=== PATIENT | female | born 1955 | race African-American/Black ===

== ENCOUNTER 2017-08-27 06:09 | Emergency (ER) | payer MEDICARE, MEDICAID, SELFPAY ==
[2017-08-27] VITALS (7 sets, daily range): BP systolic 143–217; BP diastolic 79–134; PULSE 55–76; RESP 11–25; TEMP 36.3; O2SAT 94–100; BMI 49.1
--- NOTE | 2017-08-27 06:16 | EKG12_ITS ---
Test Reason : CP Blood Pressure : / mmHG Vent. Rate : 064 BPM Atrial Rate : 064 BPM P-R Int : 176 ms QRS Dur : 088 ms QT Int : 440 ms P-R-T Axes : 018 -12 000 degrees QTc Int : 453 ms Normal sinus rhythm Normal ECG Confirmed by WILMAN SANDERS, LUIS ([id number]), telegraph editor RAN JHAVERI ([id number]) on 08/31/2017 1:23:42 PM Referred By: KEM Confirmed By:LUIS STOVALL MD
--- NOTE | 2017-08-27 06:54 | EKG12_ITS ---
Test Reason : REPEAT CP Blood Pressure : / mmHG Vent. Rate : 058 BPM Atrial Rate : 058 BPM P-R Int : 174 ms QRS Dur : 086 ms QT Int : 480 ms P-R-T Axes : 012 -16 002 degrees QTc Int : 471 ms Sinus bradycardia Poor R wave progression Confirmed by WILMAN SANDERS, LUIS ([id number]), story editor RAN JHAVERI ([id number]) on 08/31/2017 1:18:14 PM Referred By: KEM Confirmed By:LUIS STOVALL MD
--- NOTE | 2017-08-27 07:00 | RAD_ITS ---
STUDY: X-RAY CHEST REASON FOR EXAM: Female, 62 years old. Chest pain. TECHNIQUE: Single AP portable view of the chest. COMPARISON: Comparison is made with prior study dated May 28, 2017. FINDINGS: EKG electrodes are seen. The lungs are clear and expanded. There is no demonstrated pleural abnormality. There is moderate cardiac enlargement. Normal mediastinum and alina. Normal visualized pulmonary arteries. There is atherosclerotic tortuosity of the aortic arch and descending thoracic aorta. Normal visualized thoracic spine. Normal visualized ribs, clavicles, and shoulders. There is no demonstrated abnormality of the visualized soft tissue structures of the upper abdomen. RAD/Chest 1 View (Portable) IMPRESSION: Moderate cardiomegaly. Electronically Signed: Tico Hanley MD at 8:03 EST Tel [phone], Service support ,
[2017-08-27 07:03] LABS: Absolute Lymphocyte Count 2.99 X10^3/ul (0.83-4.51); Absolute Neutrophil Count 3.5 X10^3/uL (2.0-7.7); Basophil# 0.05 X10^3/uL; Basophil% 0.7 % (0-1); Eosinophil# 0.17 X10^3/uL; Eosinophils% 2.3 % (0-5); Hematocrit 33.7 % (37-47); Hemoglobin 10.4 g/dl (12.0-15.0); Lymphocyte # 2.99 X10^3/ul (4.0); Mean Corp Hgb Conc 30.9 g/gl (32-36); Mean Corpuscular Hgb 26.8 pg (27.0-32.0); Mean Corpuscular Volume 86.9 fL (81-99); Mean Platelet Vol. 10.8 fl (6.2-12.0); Monocyte# 0.73 X10^3/uL; Monocyte% 9.8 % (0-10); Neutrophil # 3.52 X10^3/uL (2.7-7.7); Neutrophil % 47.1 % (47-70); Platelet Count 252 K/mm3 (150-450); RBC Distribution Width CV 14.3 % (11.6-14.6); RBC Distribution Width SD 43.8 fl (35.1-43.9); Red Blood Count 3.88 M/mm3 (4.2-5.4); White Blood Count 7.5 K/mm3 (4.4-11.0)
[2017-08-27 07:09] LABS: POSITIVE COUNT NO; POSITIVE DIFFERENTIAL NO; POSITIVE MORPHOLOGY NO
[2017-08-27] MEDS: Aspirin 81 MG TAB.CHEW 324 MG PO (07:14)
[2017-08-27 07:15] LABS: Anion Gap 6 (5-15); BUN 12 mg/dL (7-18); BUN/Creat Ratio 11.7 RATIO (10-20); Calcium,Total 8.4 mg/dL (8.5-10.1); Chloride 109 mmol/L (98-107); Creatinine, Serum 1.03 mg/dL (0.55-1.02); EST Glomerular Filtration Rate 57 mL/min (>60); Est Glom Filt Rate - Afr Amer 70 mL/min (>60); Estimated Creatinine Clearance 46.25 ml/min; Glucose 85 mg/dL (74-106); Sodium Level 143 mmol/L (136-145)
--- NOTE | 2017-08-27 07:45 | CT_ITS ---
STUDY: CTA CHEST REASON FOR EXAM: Female, 62 years old. Chest pain. Shortness of breath. RADIATION DOSAGE (If Supplied By Facility): CTDIvol = ( 15.06 ) mGy, DLP = ( 686.55 ) mGycm TECHNIQUE: The examination was performed with the intravenous administration of 100CC ml of Isovue 370 contrast material. Post-processing of the angiographic images was performed, with multiplanar reformation and 3D reconstruction. Individualized dose optimization techniques were used for this CT. COMPARISON: Comparison is made with prior study dated May 28, 2017. FINDINGS: Mild inhomogeneous enlargement of the left lobe of the thyroid. Normal enhancement of the main pulmonary artery and right and left pulmonary arteries. Normal enhancement of the bilateral peripheral pulmonary arteries. There is no demonstrated pulmonary embolism. Normal thoracic aorta and visualized great vessels. There is no demonstrated aortic dissection. There is borderline cardiac cardiomegaly. Normal mediastinum. Normal hilar regions. Normal visualized trachea and bronchi. The lungs are well expanded. Minimal increased markings in the posterior aspect of the right upper lobe as well as lung base suggestive of atelectasis and/or minimal scarring. Normal pleura. Normal chest wall structures. There are degenerative changes of thoracic spine. Prior cholecystectomy. CT/CTA Chest W/WO Contrast IMPRESSION: No acute abnormality is seen. There has been no change as compared to prior examination. Electronically Signed: Tico Hanley MD at 9:56 EST Tel [phone], Service support ,
--- NOTE | 2017-08-27 07:45 | ED.VISSUMM ---
- ER Visit Summary Date of Service: 08/27/17 Chief Complaint: Pain and shortness of breath History of Present Illness: The patient is a 62 F who presents with chest pain shortness of breath. This began while driving to work this morning. She states her pain is sharp and worsened with deep inspiration. She also felt short of breath. She states that she became diaphoretic when her pain initially began. No nausea or vomiting. She denies recent illness such as fever cough congestion rhinorrhea sore throat muscle aches joint aches headaches. She does have a history of unprovoked pulmonary embolism. She is a poor informant but it sounds like she developed a hemorrhagic stroke after admission for pulmonary embolism. She is not on anticoagulation and also denies a history of an IVC filter. She denies any recent surgery or travel but was admitted in May for chest pain evaluation. It sounds like she had a similar presentation at that time and had a negative stress test and also an uncontrolled hypertension. Her chest pain was attributed to musculoskeletal etiology. Physical Examination: Initial blood pressure 161/134 respiratory rate 25 pulse ox 96% on nasal cannula Moist mucous membranes Heart regular rate and rhythm Lungs are clear to auscultation Abdomen soft Extremities nontender without edema Alert and oriented Test Results: EKG shows normal sinus rhythm at a rate of 64 with no acute ischemic changes. Repeat EKG unchanged. Chest x-ray on my review appears similar to prior with no acute process, cardiomegaly noted. CBC BMP troponin notable for hemoglobin 10.4. CTA of the chest is pending at this time of this dictation. Emergency Department Course and Treatment: She has had uncontrolled blood pressure while here with systolic of greater than 200 and diastolic greater than 110. IV hydralazine is been ordered. Given her history of pulmonary embolism and recent hospitalization a CTA has been ordered and is currently pending. Patient will be signed out to the oncoming physician for follow-up on CT results and reevaluation of blood pressure and symptoms. Treatment Plan: [] Disposition: Pending reevaluation and CTA Impression: Chest pain Uncontrolled hypertension This note was generated with [employer] dictation software. It may contain incorrect words, spelling, and punctuation that were not noted in review of the chart prior to signing ED Disposition - Plan for ED Patient: Chief Complaint: Chest Pain Referrals: Marquez Garcia Chi, MD [Primary Care Provider] -
--- NOTE | 2017-08-27 09:46 | ED.RN ---
Physician aware of persistent htn
[2017-08-27] MEDS: cloNIDine HCl 0.1 MG Tablet 0.2 MG PO (09:53)
[2017-08-27] MEDS: cloNIDine HCl 0.1 MG Tablet PO (11:26)
[2017-08-27] MEDS: Acetaminophen 325 MG Tablet 650 MG PO (11:26)
--- NOTE | 2017-08-27 12:23 | ED.DCSUM_ITS ---
- ER Visit Summary Date of Service: 08/27/17 Chief Complaint: [] History of Present Illness: The patient is a 62 F [] Physical Examination: [] Test Results: [] Emergency Department Course and Treatment: [] Treatment Plan: [] Disposition: [] Impression: [] This note was generated with [employer] dictation software. It may contain incorrect words, spelling, and punctuation that were not noted in review of the chart prior to signing ED Disposition - Plan for ED Patient: Disposition: Home or Assisted Living Chief Complaint: Chest Pain Instructions: ED Chest Pain Atypical Unkn Cause, ED Hypertension Conf Out Of Control Prescriptions: Clonidine HCl [Clonidine HCl ER] 0.1 mg PO BID #[id number] Referrals: Marquez Garcia Chi, MD [Primary Care Provider] - 2 Days
== END 2017-08-27 12:46 | disposition home or self-care (01) ==
PROVIDERS: Emergency Provider Emergency Medicine; Family Provider Family Medicine Geriatric Medicine; PCP Family Medicine Geriatric Medicine
DX: I10 Essential (primary) hypertension (principal); R07.9 Chest pain, unspecified; E66.9 Obesity, unspecified; E78.00 Pure hypercholesterolemia, unspecified; E11.9 Type 2 diabetes mellitus without complications; Z86.73 Personal history of transient ischemic attack (TIA), and cerebral infarction without residual deficits; Z86.711 Personal history of pulmonary embolism; Z72.0 Tobacco use
CPT/HCPCS: 71045; 71275; 80048; 84484; 85025; 93005; 96374; 96375; 99285; Q9967; A4216

== ENCOUNTER → 2017-11-10 16:59 | Outpatient (CLI) | payer MEDICARE, SELFPAY ==
--- NOTE | 2017-11-10 17:15 | RAD_ITS ---
STUDY: X-RAY - LUMBAR SPINE REASON FOR EXAM: Female, 62 years old. Fall several weeks ago. Low back pain and tailbone pain TECHNIQUE: 4 view(s) of the lumbar spine were obtained. COMPARISON: None FINDINGS: Normal lumbar lordosis. There is no substantial scoliosis. There is a normal alignment of the vertebrae. There is multilevel endplate spondylosis of the lumbar vertebrae. There is multi-level degenerative disc disease with multi-level disc space narrowing. There is no demonstrated fracture. The soft tissue structures are unremarkable. RAD/Lumbar Spine 2 or 3 Views IMPRESSION: Degenerative changes of the spine, as detailed above. Electronically Signed: Deshaun Trevino DO at 17:43 EDT Tel , Service support ,
[2017-11-10 17:53] LABS: Absolute Lymphocyte Count 3.31 X10^3/ul (0.83-4.51); Absolute Neutrophil Count 3.1 X10^3/uL (2.0-7.7); Basophil# 0.01 X10^3/uL; Basophil% 0.1 % (0-1); Eosinophil# 0.09 X10^3/uL; Eosinophils% 1.3 % (0-5); Hematocrit 34.7 % (37-47); Hemoglobin 10.7 g/dl (12.0-15.0); Lymphocyte # 3.31 X10^3/ul (4.0); Lymphocyte % 48.2 % (19-41); Mean Corp Hgb Conc 30.8 g/gl (32-36); Mean Corpuscular Hgb 26.6 pg (27.0-32.0); Mean Corpuscular Volume 86.3 fL (81-99); Mean Platelet Vol. 10.2 fl (6.2-12.0); Monocyte# 0.35 X10^3/uL; Monocyte% 5.1 % (0-10); Neutrophil % 45.2 % (47-70); Platelet Count 290 K/mm3 (150-450); RBC Distribution Width CV 14.6 % (11.6-14.6); Red Blood Count 4.02 M/mm3 (4.2-5.4); White Blood Count 6.9 K/mm3 (4.4-11.0)
[2017-11-10 17:54] LABS: POSITIVE COUNT NO; POSITIVE DIFFERENTIAL NO; POSITIVE MORPHOLOGY NO
[2017-11-10 18:58] LABS: ALB/GLOB Ratio 0.7 RATIO (0.9-2.4); AST(SGOT) 15 U/L (15-37); Alanine Aminotransfer ALT/SGPT 21 U/L (13-56); Albumin, Serum 3.1 g/dL (3.2-5.0); Alkaline Phosphatase 125 U/L (45-117); Anion Gap 7 (5-15); BUN 18 mg/dL (7-18); BUN/Creat Ratio 13.3 RATIO (10-20); Calcium,Total 8.5 mg/dL (8.5-10.1); Chloride 108 mmol/L (98-107); Creatinine, Serum 1.35 mg/dL (0.55-1.02); EST Glomerular Filtration Rate 42 mL/min (>60); Est Glom Filt Rate - Afr Amer 51 mL/min (>60); Globulin 4.3 g/dL (2.2-4.2); Glucose 91 mg/dL (74-106); Potassium 4.1 mmol/L (3.5-5.1); Protein, Total 7.4 g/dL (6.4-8.2); Sodium Level 142 mmol/L (136-145); Thyroid Stim Hormone (TSH) 0.68 uIU/mL (0.358-3.74)
== END ==
PROVIDERS: Family Provider Family Medicine Geriatric Medicine; PCP Family Medicine Geriatric Medicine; Visit Provider Family Medicine Geriatric Medicine
DX: M54.5 Low back pain (principal); R53.83 Other fatigue
CPT/HCPCS: 36415; 72100; 80053; 84443; 85025

== ENCOUNTER → 2018-04-08 16:29 | Outpatient (CLI) | payer MEDICARE, SELFPAY ==
[2018-04-08 17:10] LABS: Absolute Lymphocyte Count 2.71 X10^3/ul (0.83-4.51); Absolute Neutrophil Count 3.4 X10^3/uL (2.0-7.7); Basophil# 0.01 X10^3/uL; Basophil% 0.1 % (0-1); Eosinophil# 0.12 X10^3/uL; Eosinophils% 1.8 % (0-5); Hematocrit 36.4 % (37-47); Hemoglobin 11.3 g/dl (12.0-15.0); Lymphocyte # 2.71 X10^3/ul (4.0); Lymphocyte % 40.3 % (19-41); Mean Corpuscular Hgb 26.3 pg (27.0-32.0); Mean Corpuscular Volume 84.8 fL (81-99); Mean Platelet Vol. 11.1 fl (6.2-12.0); Monocyte# 0.45 X10^3/uL; Monocyte% 6.7 % (0-10); Neutrophil # 3.42 X10^3/uL (2.7-7.7); Platelet Count 275 K/mm3 (150-450); RBC Distribution Width CV 14.4 % (11.6-14.6); RBC Distribution Width SD 43.8 fl (35.1-43.9); Red Blood Count 4.29 M/mm3 (4.2-5.4); White Blood Count 6.7 K/mm3 (4.4-11.0)
[2018-04-08 17:18] LABS: POSITIVE COUNT NO; POSITIVE DIFFERENTIAL NO; POSITIVE MORPHOLOGY NO
[2018-04-08 17:34] LABS: ALB/GLOB Ratio 0.8 RATIO (0.9-2.4); AST(SGOT) 17 U/L (15-37); Alanine Aminotransfer ALT/SGPT 24 U/L (13-56); Albumin, Serum 3.2 g/dL (3.2-5.0); Alkaline Phosphatase 132 U/L (45-117); Anion Gap 9 (5-15); BUN 17 mg/dL (7-18); BUN/Creat Ratio 17.9 RATIO (10-20); Calcium,Total 8.5 mg/dL (8.5-10.1); Chloride 110 mmol/L (98-107); Creatinine, Serum 0.95 mg/dL (0.55-1.02); EST Glomerular Filtration Rate 63 mL/min (>60); Est Glom Filt Rate - Afr Amer 76 mL/min (>60); Globulin 3.9 g/dL (2.2-4.2); Glucose 95 mg/dL (74-106); Potassium 4.1 mmol/L (3.5-5.1); Protein, Total 7.1 g/dL (6.4-8.2); Sodium Level 143 mmol/L (136-145); Thyroid Stim Hormone (TSH) 0.82 uIU/mL (0.358-3.74)
== END ==
PROVIDERS: Family Provider Family Medicine Geriatric Medicine; PCP Family Medicine Geriatric Medicine; Visit Provider Family Medicine Geriatric Medicine
DX: E11.9 Type 2 diabetes mellitus without complications (principal); I10 Essential (primary) hypertension
CPT/HCPCS: 36415; 80053; 84443; 85025

== ENCOUNTER → 2018-05-13 16:57 | Outpatient (CLI) | payer MEDICARE, BC, SELFPAY ==
[2018-05-13 17:24] LABS: Absolute Neutrophil Count 2.8 X10^3/uL (2.0-7.7); Basophil# 0.02 X10^3/uL; Basophil% 0.4 % (0-1); Eosinophil# 0.11 X10^3/uL; Hematocrit 36.2 % (37-47); Hemoglobin 11.2 g/dl (12.0-15.0); Lymphocyte % 38.5 % (19-41); Mean Corp Hgb Conc 30.9 g/gl (32-36); Mean Corpuscular Hgb 26.6 pg (27.0-32.0); Mean Platelet Vol. 11.4 fl (6.2-12.0); Monocyte# 0.47 X10^3/uL; Monocyte% 8.6 % (0-10); Neutrophil # 2.76 X10^3/uL (2.7-7.7); Neutrophil % 50.5 % (47-70); Platelet Count 259 K/mm3 (150-450); RBC Distribution Width CV 14.2 % (11.6-14.6); RBC Distribution Width SD 44.8 fl (35.1-43.9); Red Blood Count 4.21 M/mm3 (4.2-5.4); White Blood Count 5.5 K/mm3 (4.4-11.0)
[2018-05-13 17:26] LABS: POSITIVE COUNT NO; POSITIVE DIFFERENTIAL NO; POSITIVE MORPHOLOGY NO
[2018-05-13 17:48] LABS: Anion Gap 5 (5-15); BUN 11 mg/dL (7-18); BUN/Creat Ratio 10.8 RATIO (10-20); CRP 8.97 mg/L (0.0-3.0); Calcium,Total 8.7 mg/dL (8.5-10.1); Chloride 108 mmol/L (98-107); Creatinine, Serum 1.02 mg/dL (0.55-1.02); EST Glomerular Filtration Rate 58 mL/min (>60); Est Glom Filt Rate - Afr Amer 70 mL/min (>60); Glucose 105 mg/dL (74-106); Potassium 3.8 mmol/L (3.5-5.1); Sodium Level 142 mmol/L (136-145); Uric Acid 5.1 mg/dL (2.6-6.0)
[2018-05-13 17:50] LABS: BNP,B-Type NATRIURETIC PEPTIDE 174.7 pg/mL (0-100)
[2018-05-13 18:09] LABS: Erythrocyte Sedimentation Rate 46 mm/hr (0-30)
== END ==
PROVIDERS: Family Provider Family Medicine Geriatric Medicine; PCP Family Medicine Geriatric Medicine; Visit Provider Family Medicine Geriatric Medicine
DX: M10.9 Gout, unspecified (principal); R06.02 Shortness of breath
CPT/HCPCS: 36415; 80048; 83880; 84550; 85025; 85379; 85652; 86140

== ENCOUNTER 2018-08-15 11:41 | Emergency (ER) | payer MEDICARE, SELFPAY ==
[2018-08-15 11:42] VITALS: BP 258/125; PULSE 95; RESP 16; TEMP 36.7; O2SAT 99; BMI 50.3
--- NOTE | 2018-08-15 12:02 | RAD_ITS ---
STUDY: X-RAY - RIGHT SHOULDER REASON FOR EXAM: Female, 63 years old. Fall, right shoulder pain TECHNIQUE: 4 view(s) of the shoulder. COMPARISON: None. FINDINGS: There is moderate degenerative arthrosis of the glenohumeral articulation. Normal acromioclavicular joint. Normal acromion. Fixation inessa and anchoring screw of the humerus noted spanning proximal humeral healed fracture. The soft tissue structures are unremarkable. Normal visualized pulmonary apex. RAD/Shoulder min 2 Views IMPRESSION: No acute fracture. Degenerative, old traumatic and operative changes. Electronically Signed: Porfirio Phan MD at 13:17 EST , Service support ,
--- NOTE | 2018-08-15 12:02 | RAD_ITS ---
STUDY: X-RAY - RIGHT HUMERUS REASON FOR EXAM: Female, 63 years old. Fall, right arm pain TECHNIQUE: 2 view(s) of the humerus. COMPARISON: None. FINDINGS: Fixation inessa with proximal and distal anchoring screws span a healed proximal humeral fracture. No acute fracture. No malalignment. There is arthrosis of the visualized glenohumeral articulation. There is no demonstrated soft tissue abnormality. RAD/Humerus min 2 Views IMPRESSION: No acute fracture or malalignment. Electronically Signed: Porfirio Phan MD at 13:17 EST , Service support ,
--- NOTE | 2018-08-15 12:07 | ED.DCSUM_ITS ---
- ER Visit Summary Date of Service: 08/15/18 Chief Complaint: [] Fall right shoulder injury History of Present Illness: The patient is a 63 F [], the patient fell twice today stumbling on different objects injuring her right shoulder and right upper extremity, she has a prior history of fracture in that extremity indicates she has a inessa possibly in her humerus, no head neck chest or abdominal pain no other complaints is with her confirms the above Physical Examination: [] Blood pressure is being rechecked, she is complaining of pain she is holding the shoulder adductor to her body she has diffuse complaints of shoulder pain elbow pain there is no instability deformity but decreased range of motion of the shoulder and elbow the forearm wrist and hand are unremarkable hand function is normal with good cap refill and sensation head and neck are nontender lungs are clear heart tones are normal the abdomen is obese but soft nontender upper lower extremities otherwise unremarkable she has some abrasion to the right elbow and abrasion to the right knee her back is nont dony she is neurologically awake alert normal complaining of the pain Test Results: [] Emergency Department Course and Treatment: [] Pain management x-rays of the extremity Trace per radiology show nothing acute I explained her the concept of an occult injury, she is here with a sling ice elevation Rupert for pain she will follow-up with Dr. Pruitt orthopedics or any orthopedic surgeon of her choice she understands Treatment Plan: [] Disposition: [] Home stable, prefabricated sling Impression: [] Upper extremity injury possible occult injury This note was generated with [employer] dictation software. It may contain incorrect words, spelling, and punctuation that were not noted in review of the chart prior to signing ED Disposition - Plan for ED Patient: Referrals: Marquez Garcia Chi, MD [Primary Care Provider] -
[2018-08-15] MEDS: Ondansetron ODT 4 MG Tablet PO (12:20)
[2018-08-15] MEDS: morphine 8 MG/ML Syringe SC (12:20)
--- NOTE | 2018-08-15 12:30 | RAD_ITS ---
STUDY: X-RAY - RIGHT ELBOW REASON FOR EXAM: Female, 63 years old. Fall, right elbow pain TECHNIQUE: 3 view(s) of the elbow. COMPARISON: None. FINDINGS: Fixation inessa and humerus partially visualized. No acute fracture or malalignment. No joint effusion. Normal radiocapitellar and ulnotrochlear articulations. The soft tissue structures are unremarkable. RAD/Elbow min 3 Views IMPRESSION: No acute fracture or malalignment. Electronically Signed: Porfirio Phan MD at 13:16 EST , Service support ,
--- NOTE | 2018-08-15 13:05 | ED.DEP ---
ED Disposition - Plan for ED Patient: Instructions: ED Sprain Shoulder, ED Torn Rotator Cuff Prescriptions: Hydrocodone Bitart/Apap 5-325 [[place] 5MG-325MG] 1 tab PO Q4H PRN PRN 2 Days #10 tab PRN Reason: Pain Referrals: Marquez Garcia Chi, MD [Primary Care Provider] - Unruly Pruitt DO [STAFF PHYSICIAN] -
[2018-08-15 14:11] VITALS: BP 183/101; PULSE 72; RESP 16; O2SAT 97
--- NOTE | 2018-08-15 14:13 | ED.RN ---
PT VOICED CONCERNS WITH BLOOD PRESSURE READINGS, STATES HER PRESSURE HAS BEEN HIGH FOR SEVERAL WEEKS, HAS NOT TAKEN BP MEDS TODAY. STATES PCP IS AWARE OF HIGH READINGS BUT HAS NOT MADE ANY CHANGES IN MEDICATIONS. RISKS OF HTN DISCUSSED WITH PT AND SPOUSE, BOTH VOICE UNDERSTANDING. PT REFUSES TO SPEAK FURTHER WITH ED MD REGARDING BP, STATES SHE WILL FOLLOW UP WITH A NEW PCP. PT AND SPOUSE DECLINE FURTHER CARE AT THIS TIME.
== END 2018-08-15 14:16 | disposition home or self-care (01) ==
PROVIDERS: Emergency Provider Emergency Medicine; Family Provider Family Medicine Geriatric Medicine; PCP Family Medicine Geriatric Medicine
DX: S49.91XA Unspecified injury of right shoulder and upper arm, initial encounter (principal); W18.09XA Striking against other object with subsequent fall, initial encounter; Y93.9 Activity, unspecified; Y92.9 Unspecified place or not applicable; I10 Essential (primary) hypertension
CPT/HCPCS: 73030; 73060; 73080; 96372; 99283

== ENCOUNTER 2018-10-09 12:07 | Emergency (ER) | payer MEDICARE, SELFPAY ==
[2018-10-09 12:08] VITALS: BP 153/81; PULSE 66; RESP 19; TEMP 36.7; O2SAT 98; BMI 49.6
--- NOTE | 2018-10-09 12:22 | CT_ITS ---
STUDY: CT BRAIN WITHOUT CONTRAST REASON FOR EXAM: Female, 63 years old. Diaphoresis, not responding, history of prior aneurysm with repair RADIATION DOSAGE (If Supplied By Facility): CTDIvol = ( 44.99 ) mGy, DLP = ( 796.11 ) mGycm TECHNIQUE: Transaxial CT imaging of the brain was performed without administration of intravenous contrast material. Individualized dose optimization techniques were used for this CT. COMPARISON: 02/24/2013 FINDINGS: Normal soft tissue structures. Normal calvarium. There is asymmetry of the ventricles consistent with an anatomic variant. There are areas of decreased attenuation within the white matter tracts of the supratentorial brain, consistent with microvascular disease changes. Metallic densities in the left middle cranial fossa compatible with aneurysm repair. 1 cm low-density lesion in the left basal ganglia is new since the prior study, likely representing an old (but intervening) lacunar infarction. Normal brainstem. Normal cerebellum. There is no intracranial hemorrhage. There are no findings of an acute ischemic infarction. Normal visualized paranasal sinuses. CT/Brain/Head without Contrast IMPRESSION: 1. No acute intracranial hemorrhage or mass effect. 2. Left MCA territory embolization coils 3. New but chronic-appearing left basal ganglia lacunar infarction. Electronically Signed: Porfirio Phan MD at 12:48 EDT , Service support ,
--- NOTE | 2018-10-09 12:24 | EKG12_ITS ---
Test Reason : NEURO Blood Pressure : / mmHG Vent. Rate : 069 BPM Atrial Rate : 069 BPM P-R Int : 170 ms QRS Dur : 088 ms QT Int : 454 ms P-R-T Axes : 032 -06 -09 degrees QTc Int : 486 ms Normal sinus rhythm Normal ECG Confirmed by NIXON SANDERS, ILYA ([id number]), graphic editor JEROME OROZCO ([id number]) on 10/12/2018 1:04:53 PM Referred By: PILAR Confirmed By:ILYA ALICEA MD
[2018-10-09 12:40] LABS: Absolute Neutrophil Count 3.4 X10^3/uL (2.0-7.7); Basophil# 0.02 X10^3/uL; Basophil% 0.3 % (0-1); Eosinophil# 0.11 X10^3/uL; Eosinophils% 1.7 % (0-5); Hematocrit 32.4 % (37-47); Hemoglobin 10.2 g/dl (12.0-15.0); Mean Corp Hgb Conc 31.5 g/gl (32-36); Mean Corpuscular Hgb 27.4 pg (27.0-32.0); Mean Corpuscular Volume 87.1 fL (81-99); Mean Platelet Vol. 9.4 fl (6.2-12.0); Monocyte# 0.51 X10^3/uL; Monocyte% 7.9 % (0-10); Neutrophil # 3.44 X10^3/uL (2.7-7.7); Neutrophil % 52.9 % (47-70); POSITIVE COUNT NO; POSITIVE DIFFERENTIAL NO; POSITIVE MORPHOLOGY NO; Platelet Count 271 K/mm3 (150-450); RBC Distribution Width SD 44.5 fl (35.1-43.9); Red Blood Count 3.72 M/mm3 (4.2-5.4); White Blood Count 6.5 K/mm3 (4.4-11.0)
[2018-10-09 12:45] LABS: Anion Gap 3 (5-15); BUN 14 mg/dL (7-18); BUN/Creat Ratio 11.6 RATIO (10-20); Calcium,Total 8.2 mg/dL (8.5-10.1); Chloride 107 mmol/L (98-107); Creatinine, Serum 1.21 mg/dL (0.55-1.02); EST Glomerular Filtration Rate 48 mL/min (>60); Est Glom Filt Rate - Afr Amer 58 mL/min (>60); Estimated Creatinine Clearance 37.15 ml/min; Glucose 112 mg/dL (74-106); Potassium 4.1 mmol/L (3.5-5.1); Sodium Level 138 mmol/L (136-145)
[2018-10-09 13:05] LABS: Bedside Glucose 104 mg/dL (70-110)
[2018-10-09] MEDS: Ondansetron 4 MG/2 ML Vial IV (13:46)
[2018-10-09 13:47] VITALS: BP 186/121; PULSE 67; RESP 18; O2SAT 100
--- NOTE | 2018-10-09 14:47 | ED.VIS.GEN ---
History of Present Illness Chief Complaint: Neuro S/Sx Informant: Patient, Family Onset: Today Context: Sudden Onset Timing: Intermittent Quality: At restaurant became diaphoretic, pale and less responsive also headache Current Severity: Mild Maximum Severity: Severe Worsened by: Unknown Relieved by: Nothing Associated Symptoms: Aforementioned Narrative: Patient is a 63-year-old woman history of cerebral aneurysm status post coiling 5 years ago at [facility]. 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 She became less responsive diaphoretic pale. states she put her head down. She did not have any clonic or seizure activity. She did not complain of chest pain shortness of breath or any other symptoms. She did complain of mild abdominal pain. She denies fever, chills night sweats. She denies recent URI symptoms. She denies recent GI illness or symptoms. - Past Medical History (1) Chest pain Status: Acute (2) Benign hypertension Status: Chronic (3) History of pulmonary embolism Status: Chronic (4) History of stroke Status: Chronic (5) Hyperlipidemia Status: Chronic (6) Morbid obesity Status: Chronic (7) Type 2 diabetes mellitus Status: Chronic Past Medical History - Allergies and Home Meds Allergies/Adverse Reactions: Allergies latex Allergy (Verified 10/09/18 12:20) Rash oxycodone [Oxycodone] Adverse Reaction (Verified 10/09/18 12:20) Itching Primary Care Physician: Care Physician,No Primary [Primary Care Provider] - Prior records reviewed: Yes Surgical History: appendectomy, cholecystectomy, hysterectomy, - - shoulder sirgery, brain surgery - clip Lives: Spouse/ Significant Other Smoking Status: Never smoker Alcohol: None Drugs: None - Family History Maternal Family History: Reports: Heart Disease Paternal Family History: Reports: Heart Disease Sibling Family History: Reports: Heart Disease Review of Systems General: Denies: Chills, Fever, Sweats Eyes: Reports: Blurred Vision - bilaterally. Denies: Visual changes - bilaterally, Diplopia ENT: Denies: Rhinorrhea, Sore throat Cardiovascular: Denies: Chest pain, Palpitations Respiratory: Denies: Dyspnea, Cough, Dyspnea on exertion Gastrointestinal: Reports: Abdominal pain, Nausea. Denies: Vomiting, Diarrhea, Melena, Hematochezia Genitourinary: Denies: Dysuria, Hematuria, Frequency Musculoskeletal: Denies: Back pain, Extremity Pain Skin: Denies: Rash, Wounds Neurological: Reports: Headache - Right frontal region. Denies: Weakness, Numbness Hematologic: Denies: Easy bruising, Easy bleeding Allergy: Denies: Uticaria Physical Exam Vital Signs/Narrative: Vital Signs Temp Pulse Resp BP Pulse Ox 10/09/18 13:47 67 18 186/121 H 100 10/09/18 12:08 98.1 F 66 19 H 153/81 H 98 General: Well nourished, Well developed, Obese, No Acute Distress Head: Normocephalic, Atraumatic Eyes: Perrl, EOMI, Pale conjunctiva, Scleral icterus, - - Funduscopic exam reveals normal cup-to-disc ratio. There is no papilledema. Venous pulsations noted bilaterally. ENT: Moist mucous membranes, No rhinorrhea, TM's clear Neck: Supple, Nontender, No lymphadenopathy, No JVD, - - No meningeal findings. Cardiovascular: Regular rate, Regular rhythm, No murmurs, Normal S1, Normal S2 Respiratory: No distress, CTA bilaterally, Chest nontender Abdomen: Soft, Nontender, Nondistended, Normal bowel sounds Back: Nontender, Normal Inspection Extremities: Nontender, No edema Skin: Normal color, No rash Neurological: Alert, Oriented x3, Cranial nerves II-XII grossly intact, Normal Strength, Normal Sensation, Normal DTR, - - Cerebellar testing normal. Psychological: Normal affect, Normal Mood Diagnostic/Tx/Re-eval Impressions Brain CT 10/09/18 12:22 IMPRESSION: 1. No acute intracranial hemorrhage or mass effect. 2. Left MCA territory embolization coils 3. New but chronic-appearing left basal ganglia lacunar infarction. Electronically Signed: Porfirio Phan MD at 12:48 EDT , Service support , 10/09/18 12:22 Brain/Head without Contrast [CT] Stat Laboratory Results 10/09/18 10/09/18 10/09/18 12:07 12:07 12:18 WBC 6.5 RBC 3.72 L Hgb 10.2 L Hct 32.4 L MCV 87.1 MCH 27.4 MCHC 31.5 L RDW 14.0 RDW Differential 44.5 H Plt Count 271 MPV 9.4 Immature Gran % (Auto) 0.200 Neut % (Auto) 52.9 Lymph % (Auto) 37.0 [place] % (Auto) 7.9 Eos % (Auto) 1.7 Baso % (Auto) 0.3 Absolute Neuts (auto) 3.4 Absolute Lymphs (auto) 2.40 Total Counted Not Reportable Sodium 138 Potassium 4.1 Chloride 107 Carbon Dioxide 28.0 Anion Gap 3 L BUN 14 Creatinine 1.21 H Estim Creat Clear Calc 37.15 Est GFR (MDRD) Af Amer 58 L Est GFR (MDRD) Non-Af 48 L BUN/Creatinine Ratio 11.6 Glucose 112 H Calcium 8.2 L POC Glucose 104 - Medical Decision Making Based on 's description suspect vasovagal near syncopal. This would not explain her headache. With history of aneurysm CT of the head was obtained. CT of the head reviewed by me interpreted radiologist as negative for acute process. Patient was reassessed at 1445. She is awake alert oriented with no symptoms. Differential diagnosis cardiac etiology, GI bleed, vasovagal episode, headache may represent atypical migraine, intracranial bleed. ED Disposition - Plan for ED Patient: Disposition: Home or Assisted Living Diagnosis: Vasovagal near-syncope, Right-sided headache, Benign hypertension, Type 2 diabetes mellitus Instructions: ED Cephalgia Unspecified, ED Near Syncope Vasovagal Referrals: Care Physician,No Primary [Primary Care Provider] -
[2018-10-09 15:00] VITALS: O2SAT 98
[2018-10-09 15:05] VITALS: PULSE 70
== END 2018-10-09 15:05 | disposition home or self-care (01) ==
PROVIDERS: Emergency Provider Emergency Medicine
DX: R55 Syncope and collapse (principal); R51 Headache; I10 Essential (primary) hypertension; E11.9 Type 2 diabetes mellitus without complications; E78.5 Hyperlipidemia, unspecified; E66.01 Morbid (severe) obesity due to excess calories; Z68.42 Body mass index [BMI] 45.0-49.9, adult; Z86.711 Personal history of pulmonary embolism; Z79.82 Long term (current) use of aspirin; Z79.899 Other long term (current) drug therapy; Z86.73 Personal history of transient ischemic attack (TIA), and cerebral infarction without residual deficits
CPT/HCPCS: 70450; 80048; 82962; 85025; 93005; 96374; 99285; J7030; A4216; J2405

== ENCOUNTER → 2020-06-04 | Outpatient (CLI) | payer MEDICARE, SELFPAY ==
[2020-06-04 10:03] VITALS: BMI 42.5
== END | disposition home or self-care (01) ==
LOC: LABSPEC 13:00
PROVIDERS: Referring Provider Physician Assistant Surgical; Visit Provider Physician Assistant Surgical
DX: Z20.828 Contact with and (suspected) exposure to other viral communicable diseases (principal)
CPT/HCPCS: 87635; U0003

== ENCOUNTER → 2020-12-04 13:45 | Outpatient (CLI) | payer MEDICARE, SELFPAY ==
[2020-06-04 10:03] VITALS: BMI 42.5
[2020-12-04 14:44] LABS: Absolute Lymphocyte Count 2.36 X10^3/uL (0.83-4.51); Absolute Neutrophil Count 2.1 X10^3/uL (2.0-7.7); Basophil# 0.03 X10^3/uL; Basophil% 0.6 % (0-1); Eosinophil# 0.19 X10^3/uL; Eosinophils% 3.7 % (0-5); Hematocrit 34.9 % (37-47); Lymphocyte # 2.36 X10^3/ul (0.83-4.51); Lymphocyte % 46.2 % (19-41); Mean Corp Hgb Conc 31.5 g/dL (32-36); Mean Corpuscular Hgb 27.4 pg (27.0-32.0); Mean Platelet Vol. 10.7 fl (6.2-12.0); Monocyte# 0.43 X10^3/uL; Monocyte% 8.4 % (0-10); NRBC Flagged by Analyzer 0 % (0-5); Neutrophil # 2.09 X10^3/uL (2.7-7.7); Neutrophil % 40.9 % (47-70); Platelet Count 290 K/mm3 (150-450); RBC Distribution Width CV 13.4 % (11.6-14.6); RBC Distribution Width SD 42.4 fl (35.1-43.9); Red Blood Count 4.01 M/mm3 (4.2-5.4); White Blood Count 5.1 K/mm3 (4.4-11.0)
[2020-12-04 15:16] LABS: ALB/GLOB Ratio 0.8 RATIO (0.9-2.4); AST(SGOT) 15 U/L (15-37); Alanine Aminotransfer ALT/SGPT 16 U/L (13-56); Albumin, Serum 3.3 g/dL (3.2-5.0); Alkaline Phosphatase 152 U/L (45-117); Anion Gap 7 (5-15); BUN 8 mg/dL (7-18); BUN/Creat Ratio 8.3 RATIO (10-20); Calcium,Total 8.6 mg/dL (8.5-10.1); Chloride 110 mmol/L (98-107); Cholesterol 205 mg/dL (200); Creatinine, Serum 0.96 mg/dL (0.55-1.02); EST Glomerular Filtration Rate 61 mL/min (>60); Est Glom Filt Rate - Afr Amer 74 mL/min (>60); Globulin 4.1 g/dL (2.2-4.2); Glucose 142 mg/dL (74-106); High Density Lipoprotein 59 mg/dL; Potassium 3.5 mmol/L (3.5-5.1); Protein, Total 7.4 g/dL (6.4-8.2); Sodium Level 142 mmol/L (136-145); Thyroid Stim Hormone (TSH) 0.69 uIU/mL (0.358-3.74); Triglycerides 105 mg/dL; Very Low Density Lipoprotein 21 mg/dL (5-40)
[2020-12-06 12:15] LABS: Vitamin D,25 Hydroxy 12.7 ng/mL
== END ==
PROVIDERS: PCP Family Medicine Geriatric Medicine; Visit Provider Family Medicine Geriatric Medicine
DX: E11.9 Type 2 diabetes mellitus without complications (principal); E55.9 Vitamin D deficiency, unspecified; E78.5 Hyperlipidemia, unspecified; I10 Essential (primary) hypertension
CPT/HCPCS: 36415; 80053; 80061; 82306; 84443; 85025

== ENCOUNTER → 2021-03-05 13:32 | Outpatient (CLI) | payer MEDICARE, SELFPAY ==
--- NOTE | 2021-03-05 13:38 | RAD_ITS ---
STUDY: X-RAY - RIGHT SHOULDER REASON FOR EXAM: Female, 66 years old. SHOULDER PAIN TECHNIQUE: 4 view(s) of the shoulder. COMPARISON: None. FINDINGS: There is moderate degenerative arthrosis of the glenohumeral articulation. Normal acromioclavicular joint. Normal acromion. Normal humeral head and visualized proximal humerus. The soft tissue structures are unremarkable. Normal visualized pulmonary apex. RAD/Shoulder min 2 Views IMPRESSION: Moderate glenohumeral joint arthrosis. Electronically Signed: Iglesia Sweeney MD at 11:47 EDT Tel , Service support ,
== END ==
LOC: RAD 13:34
PROVIDERS: PCP Family Medicine Geriatric Medicine; Referring Provider Family Medicine Geriatric Medicine; Visit Provider Family Medicine Geriatric Medicine
DX: M19.011 Primary osteoarthritis, right shoulder (principal)
CPT/HCPCS: 73030

== ENCOUNTER → 2021-06-20 14:19 | Outpatient (CLI) | payer MEDICARE, SELFPAY ==
[2021-06-20 17:23] LABS: Absolute Lymphocyte Count 3.06 X10^3/uL (0.83-4.51); Absolute Neutrophil Count 3.3 X10^3/uL (2.0-7.7); Basophil# 0.04 X10^3/uL; Basophil% 0.6 % (0-1); Eosinophil# 0.21 X10^3/uL; Eosinophils% 2.9 % (0-5); Hematocrit 37.4 % (37-47); Hemoglobin 11.5 g/dL (12.0-15.0); Lymphocyte # 3.06 X10^3/ul (0.83-4.51); Lymphocyte % 42.6 % (19-41); Mean Corp Hgb Conc 30.7 g/dL (32-36); Mean Corpuscular Hgb 27.1 pg (27.0-32.0); Mean Corpuscular Volume 88.2 fL (81-99); Mean Platelet Vol. 11.6 fl (6.2-12.0); Monocyte# 0.58 X10^3/uL; Monocyte% 8.1 % (0-10); NRBC Flagged by Analyzer 0 % (0-5); Neutrophil # 3.28 X10^3/uL (2.7-7.7); Neutrophil % 45.7 % (47-70); Platelet Count 198 K/mm3 (150-450); RBC Distribution Width CV 13.4 % (11.6-14.6); RBC Distribution Width SD 43.5 fl (35.1-43.9); Red Blood Count 4.24 M/mm3 (4.2-5.4); White Blood Count 7.2 K/mm3 (4.4-11.0)
[2021-06-20 17:49] LABS: ALB/GLOB Ratio 0.8 RATIO (0.9-2.4); AST(SGOT) 21 U/L (15-37); Alanine Aminotransfer ALT/SGPT 26 U/L (13-56); Albumin, Serum 3.4 g/dL (3.2-5.0); Alkaline Phosphatase 152 U/L (45-117); Anion Gap 6 (5-15); BUN 15 mg/dL (7-18); BUN/Creat Ratio 14.9 RATIO (10-20); Calcium,Total 8.6 mg/dL (8.5-10.1); Chloride 104 mmol/L (98-107); Cholesterol 192 mg/dL (200); Creatinine, Serum 1.01 mg/dL (0.55-1.02); EST Glomerular Filtration Rate 58 mL/min (>60); Est Glom Filt Rate - Afr Amer 70 mL/min (>60); Globulin 4.5 g/dL (2.2-4.2); Glucose 93 mg/dL (74-106); High Density Lipoprotein 84 mg/dL; Potassium 4.4 mmol/L (3.5-5.1); Protein, Total 7.9 g/dL (6.4-8.2); Sodium Level 138 mmol/L (136-145); Thyroid Stim Hormone (TSH) 0.55 uIU/mL (0.358-3.74); Triglycerides 106 mg/dL; Very Low Density Lipoprotein 21 mg/dL (5-40)
== END ==
LOC: POLAB3 14:19
PROVIDERS: PCP Family Medicine Geriatric Medicine; Visit Provider Family Medicine Geriatric Medicine
DX: E11.9 Type 2 diabetes mellitus without complications (principal); E55.9 Vitamin D deficiency, unspecified; E78.5 Hyperlipidemia, unspecified; I10 Essential (primary) hypertension
CPT/HCPCS: 36415; 80053; 80061; 82306; 84443; 85025

== ENCOUNTER 2021-09-18 08:38 | Outpatient (CLI) | payer OTHER, SELFPAY ==
--- NOTE | 2021-09-18 08:42 | BI_ITS ---
MAMMOGRAPHY - BILATERAL SCREENING REASON FOR EXAM: Female, 66 years old. Routine annual screening examination. PERTINENT HISTORY: Aunt with breast cancer. TECHNIQUE: Digital bilateral breast renato (3D mammographic acquisition) in the CC and MLO projections. 2-D mediolateral oblique (MLO) and craniocaudad (CC) views of both breasts were obtained. CAD: Full Field Digital Mammography with Computer Added Detection was performed. COMPARISON: Comparison is made with prior examination dated 02/15/2014 and outside examination dated 05/28/2019. FINDINGS: Breast Composition: The breasts are almost entirely fatty. There are no dominant masses or suspicious calcifications. No other significant abnormalities are identified. There has been no significant change since the prior study. BI/SCRN MAMM (CAD)W/RENATO BILAT IMPRESSION: Stable bilateral screening mammogram. Yearly follow-up mammogram recommended. (A) ASSESSMENT CATEGORY: BIRADS Category 1: Negative. A letter regarding these results will be sent to the patient by the facility within 30 days. Approximately 10% of breast cancers are not detected by mammography. A normal mammogram should not delay biopsy of a clinically suspicious abnormality. [id number] Electronically Signed: Tico Hanley MD at 8:10 EST ,
== END 2021-09-18 23:59 | disposition home or self-care (01) ==
LOC: OPBI 08:40
PROVIDERS: PCP Family Medicine Geriatric Medicine; Visit Provider Family Medicine Geriatric Medicine
DX: Z12.31 Encounter for screening mammogram for malignant neoplasm of breast (principal); Z80.3 Family history of malignant neoplasm of breast
CPT/HCPCS: 77063; 77067

== ENCOUNTER → 2021-12-23 | Outpatient (CLI) | payer OTHER, SELFPAY ==
[2021-12-23 16:34] LABS: Absolute Lymphocyte Count 2.53 X10^3/uL (0.83-4.51); Absolute Neutrophil Count 2.7 X10^3/uL (2.0-7.7); Basophil# 0.03 X10^3/uL; Basophil% 0.5 % (0-1); Eosinophil# 0.08 X10^3/uL; Eosinophils% 1.4 % (0-5); Hematocrit 34.2 % (37-47); Hemoglobin 10.7 g/dL (12.0-15.0); Lymphocyte # 2.53 X10^3/ul (0.83-4.51); Lymphocyte % 42.7 % (19-41); Mean Corp Hgb Conc 31.3 g/dL (32-36); Mean Corpuscular Hgb 27.6 pg (27.0-32.0); Mean Corpuscular Volume 88.4 fL (81-99); Mean Platelet Vol. 10.4 fl (6.2-12.0); Monocyte# 0.52 X10^3/uL; Monocyte% 8.8 % (0-10); NRBC Flagged by Analyzer 0 % (0-5); Neutrophil # 2.74 X10^3/uL (2.7-7.7); Neutrophil % 46.3 % (47-70); Platelet Count 309 K/mm3 (150-450); RBC Distribution Width CV 13.1 % (11.6-14.6); RBC Distribution Width SD 42.4 fl (35.1-43.9); Red Blood Count 3.87 M/mm3 (4.2-5.4); White Blood Count 5.9 K/mm3 (4.4-11.0)
[2021-12-23 17:00] LABS: ALB/GLOB Ratio 0.7 RATIO (0.9-2.4); AST(SGOT) 15 U/L (15-37); Alanine Aminotransfer ALT/SGPT 21 U/L (13-56); Albumin, Serum 3.1 g/dL (3.2-5.0); Alkaline Phosphatase 116 U/L (45-117); Anion Gap 6 (5-15); BUN 12 mg/dL (7-18); BUN/Creat Ratio 10.8 RATIO (10-20); Calcium,Total 8.5 mg/dL (8.5-10.1); Chloride 109 mmol/L (98-107); Cholesterol 216 mg/dL (200); Creatinine, Serum 1.11 mg/dL (0.55-1.02); EST Glomerular Filtration Rate 52 mL/min (>60); Est Glom Filt Rate - Afr Amer 63 mL/min (>60); Globulin 4.2 g/dL (2.2-4.2); Glucose 124 mg/dL (74-106); High Density Lipoprotein 61 mg/dL; Potassium 3.7 mmol/L (3.5-5.1); Protein, Total 7.3 g/dL (6.4-8.2); Sodium Level 141 mmol/L (136-145); Thyroid Stim Hormone (TSH) 0.67 uIU/mL (0.358-3.74); Triglycerides 183 mg/dL; Very Low Density Lipoprotein 37 mg/dL (5-40)
== END | disposition home or self-care (01) ==
LOC: POLAB3 15:28
PROVIDERS: PCP Family Medicine Geriatric Medicine; Visit Provider Family Medicine Geriatric Medicine
DX: E11.9 Type 2 diabetes mellitus without complications (principal); E55.9 Vitamin D deficiency, unspecified; E78.5 Hyperlipidemia, unspecified; I10 Essential (primary) hypertension
CPT/HCPCS: 36415; 80053; 80061; 82306; 84443; 85025

== ENCOUNTER 2022-04-28 13:06 | Emergency (ER) | payer MEDICARE, SELFPAY ==
[2022-04-28 13:07] VITALS: BP 162/90; PULSE 97; RESP 16; TEMP 36.7; O2SAT 98; BMI 46.3
[2022-04-28] MEDS: Morphine 4 MG/ML Syringe IV (14:18)
[2022-04-28] MEDS: Ondansetron 4 MG/2 ML Vial IV (14:18)
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
[2022-04-28 15:24] LABS: Anion Gap 8 (5-15); BUN 10 mg/dL (7-18); BUN/Creat Ratio 10.8 RATIO (10-20); Calcium,Total 8.7 mg/dL (8.5-10.1); Chloride 109 mmol/L (98-107); Creatinine, Serum 0.92 mg/dL (0.55-1.02); EST Glomerular Filtration Rate 64 mL/min (>60); Est Glom Filt Rate - Afr Amer 78 mL/min (>60); Estimated Creatinine Clearance 46.29 ml/min; Glucose 97 mg/dL (74-106); Potassium 3.7 mmol/L (3.5-5.1); Sodium Level 142 mmol/L (136-145)
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
== END 2022-04-28 17:34 | disposition home or self-care (01) ==
PROVIDERS: Emergency Provider Emergency Medicine; PCP Family Medicine Geriatric Medicine; Visit Provider Emergency Medicine
DX: S16.1XXA Strain of muscle, fascia and tendon at neck level, initial encounter (principal); V43.52XA Car driver injured in collision with other type car in traffic accident, initial encounter
CPT/HCPCS: 36415; 70450; 70498; 71045; 72125; 80048; 96374; 96375; 99285; Q9967; A4216; J2405

== ENCOUNTER → 2022-06-12 | Outpatient (CLI) | payer MEDICARE, SELFPAY ==
[2022-06-12 17:00] LABS: Absolute Lymphocyte Count 2.44 X10^3/uL (0.83-4.51); Absolute Neutrophil Count 3.2 X10^3/uL (2.0-7.7); Basophil# 0.02 X10^3/uL; Basophil% 0.3 % (0-1); Eosinophil# 0.05 X10^3/uL; Eosinophils% 0.8 % (0-5); Hematocrit 36.3 % (37-47); Hemoglobin 11.1 g/dL (12.0-15.0); Lymphocyte # 2.44 X10^3/ul (0.83-4.51); Lymphocyte % 39.3 % (19-41); Mean Corp Hgb Conc 30.6 g/dL (32-36); Mean Corpuscular Volume 88.3 fL (81-99); Mean Platelet Vol. 10.5 fl (6.2-12.0); Monocyte# 0.53 X10^3/uL; Monocyte% 8.5 % (0-10); NRBC Flagged by Analyzer 0 % (0-5); Neutrophil # 3.15 X10^3/uL (2.7-7.7); Neutrophil % 50.8 % (47-70); Platelet Count 360 K/mm3 (150-450); RBC Distribution Width CV 13.5 % (11.6-14.6); RBC Distribution Width SD 43.6 fl (35.1-43.9); Red Blood Count 4.11 M/mm3 (4.2-5.4); White Blood Count 6.2 K/mm3 (4.4-11.0)
[2022-06-12 17:34] LABS: Anion Gap 8 (5-15); BUN 16 mg/dL (7-18); Calcium,Total 8.8 mg/dL (8.5-10.1); Chloride 107 mmol/L (98-107); Creatinine, Serum 1.23 mg/dL (0.55-1.02); EST Glomerular Filtration Rate 46 mL/min (>60); Est Glom Filt Rate - Afr Amer 56 mL/min (>60); Glucose 90 mg/dL (74-106); Potassium 4.1 mmol/L (3.5-5.1); Sodium Level 141 mmol/L (136-145)
== END | disposition home or self-care (01) ==
PROVIDERS: PCP Family Medicine Geriatric Medicine; Visit Provider Family Medicine Geriatric Medicine
DX: R42 Dizziness and giddiness (principal)
CPT/HCPCS: 36415; 80048; 85025

== ENCOUNTER 2022-06-28 00:34 | Emergency (ER) | payer MEDICARE, SELFPAY ==
[2022-06-28 00:35] VITALS: BP 124/93; PULSE 134; RESP 30; TEMP 36.7; O2SAT 92; BMI 43.7
--- NOTE | 2022-06-28 01:15 | EKG12_ITS ---
Test Reason : DYSRHYTHMIA Blood Pressure : / mmHG Vent. Rate : 132 BPM Atrial Rate : 264 BPM P-R Int : 000 ms QRS Dur : 066 ms QT Int : 334 ms P-R-T Axes : 000 -02 -10 degrees QTc Int : 494 ms Atrial flutter with 2 to [address] abnormality Abnormal ECG Confirmed by NIXON SANDERS, ILYA ([id number]), photograph editor JEROME OROZCO ([id number]) on 06/30/2022 12:42:35 PM Referred By: MELO Confirmed By:ILYA ALICEA MD
--- NOTE | 2022-06-28 01:15 | RAD_ITS ---
EXAM: XR CHEST, 1 VIEW CLINICAL INDICATION: chest pain TECHNIQUE: Frontal view of the chest. This report was created using [employer] report generation technology. COMPARISON: Previous chest radiographs of 04/28/2022 and 08/27/2017. FINDINGS: LUNGS AND PLEURAL SPACES: Unremarkable. The lungs are not hyperinflated. No consolidation or edema. No pneumothorax. No effusion. HEART: Heart size is mildly enlarged with left ventricular configuration, unchanged. Normal pulmonary vasculature. MEDIASTINUM: Thoracic aorta remains moderately elongated. BONES/JOINTS: Intramedullary inessa again noted within the visualized proximal right humerus. Thoracic degenerative spurring again noted. No acute osseous abnormality. SOFT TISSUES: Unremarkable. RAD/Chest 1 View (Portable) IMPRESSION: No significant interval change or acute process. Electronically Signed: Camron Chaudhari MD at 2:13 EST ,
--- NOTE | 2022-06-28 01:17 | ED.VIS.CHEST ---
HPI History of Present Illness Chief Complaint: Chest Pain Informant: patient Narrative Narrative: Patient reports that she had anxiety attack. But she also has racing heart and chest pain. She has a history of atrial fibrillation/flutter. She has never been cardioverted or having an ablation. She cannot be placed on blood thinners due to prior cerebral aneurysms with coiling. She is on amlodipine aspirin and atorvastatin. It sounds like she is not on carvedilol at this time. Nothing really makes her symptoms better. Pressing on the chest makes it worse. She is not coughing. She feels a little bit short of breath with this with her heart rate up. But she is not having any nausea vomiting or diaphoresis. [facility] Medical History Encounter for screening for COVID-19 Hypertension Home Medications amlodipine 5 mg tablet 10 mg PO DAILY BLOOD PRESSURE 10/10/15 [History Last Taken 05/28/17] atorvastatin 40 mg tablet 80 mg PO QHS CHOLESTEROL 05/20/16 [History Last Taken 05/28/17] aspirin 81 mg chewable tablet 81 mg PO DAILY 10/09/18 [History Last Taken Unknown] carvedilol 6.25 mg tablet 6.25 mg PO BID 10/09/18 [History Last Taken Unknown] gabapentin 300 mg capsule 300 mg PO BID 10/09/18 [History Last Taken Unknown] cyclobenzaprine 10 mg tablet 10 mg PO TID PRN Muscle Spasm #20 TABLETS 04/28/22 [Rx Last Taken Unknown] Allergy/AdvReac Type Severity Reaction Status Date / Time lisinopril Allergy Unknown Unknown Verified 04/28/22 13:10 latex Allergy Rash Verified 04/28/22 13:10 oxycodone [Oxycodone] AdvReac Itching Verified 04/28/22 13:10 Family History Other Cancer Heart disease Surgical History History of cholecystectomy History of total knee replacement Social History Smoking Status: Never smoker ROS ROS ED Constitutional Constitutional ED: Denies fever(s) or sweats Eyes Eyes: Denies change in vision ENT ENT ED: Denies rhinorrhea or sore throat Cardiovascular Cardiovascular: Reports as per HPI, chest pain, palpitations and racing heartbeat Respiratory/Chest Respiratory/Chest: Reports dyspnea; Denies cough or sputum Gastrointestinal Gastrointestinal: Denies nausea or vomiting Genitourinary Genitourinary ED: Denies hematuria Musculoskeletal Musculoskeletal: Denies back pain or neck pain Integumentary Denies rash Neurologic Neurologic: Denies headache(s), paresthesias or weakness Endocrine Endocrinology: Denies polydipsia or polyuria Hematologic/Lymphatic Hematologic/Lymphatic: Denies easy bleeding or easy bruising Allergic/Immunologic Allergic/Immunologic ED: Denies urticaria EXAM Physical Exam Const Vital Signs: 06/28/22 00:35 06/28/22 01:34 06/28/22 01:34 Temperature 98.1 F Temperature Source Temporal Pulse Rate 134 H 139 H Respiratory Rate 30 H Blood Pressure 124/93 H Blood Pressure Mean 103 Pulse Ox 92 99 Oxygen Delivery Method Room Air Room Air 06/28/22 02:00 06/28/22 03:06 06/28/22 04:02 Temperature Temperature Source Pulse Rate 133 H 121 H 77 Respiratory Rate 17 13 20 H Blood Pressure 122/89 H 113/67 Blood Pressure Mean 100 82 Pulse Ox 99 100 97 Oxygen Delivery Method Room Air Room Air Room Air Positive well nourished and well developed General Appearance ED: well developed and NAD; Negative for pallor HEENT Reports moist mucous membranes Eyes General Eye ED: Negative for scleral icterus Neck supple and no JVD Chest Wall inspection of chest normal Chest Narrative: She does have chest wall tenderness diffusely. Resp normal respiratory effort and clear to auscultation bilaterally Resp Narrative: Her respiratory rate now is about 21?22 on the monitor. Saturations are 94% room air. Cardio regular rhythm and no murmurs Rate: tachycardic GI normal to inspection, nondistended, normoactive bowel sounds and soft to palpation Extremity normal to inspection General Extremety ED: Negative for edema or tenderness General Extremity: Negative for edema Neuro oriented x3 Psych Mood & Affect: anxious; Negative for tearful Skin no rashes or lesions noted General Skin Exam: Negative for jaundice or pallor MDM MDM MDM Narrative Medical decision making narrative: CT and Chest x-ray was negative. CBC showed minimal anemia with normal platelets and white count. Electrolytes were overall unremarkable. Minimal elevation of chloride and creatinine. Troponin was normal at 15. This was approximately 3 hours after the onset of her symptoms. 's patient was still having pain, the CTA was done with her history of pulmonary embolus. Happily this was negative. We were going to give her diltiazem drip because her heart rate was still up. But suddenly she went back into a normal sinus rhythm with a rate of about 75-80. With this, her symptoms resolved. She tells me she has had now this third episode of racing heartbeat with chest pain over the last month or 2. She does have a history of intermittent atrial fibrillation. She sees a university counselor in [place]. I am going to talk with her to see if she is still on carvedilol. But when she originally talk to me she was not taking this medicine. We will recheck a troponin also. Repeat troponin is still normal. It did not rise more than 20. It is within the normal range. Patient's symptoms are still resolved. She does have a history of intermittent A. fib. Because of her prior coiling and aneurysm her university counselor had recommended she not be anticoagulated. She is now back in sinus rhythm. She has been back in that for approximately an hour. We do verify that she takes 6.25 mg of carvedilol twice a day. I will have her increase the evening dose to 12.5 mg. She states these episodes normally occur at nighttime or late evening. She will follow-up with her university counselor. If she has further symptoms she should return. Lab Data Attestation: I reviewed the patient's lab results. Labs: Laboratory Results - last 24 hr 06/28/22 06/28/22 06/28/22 01:31 01:31 03:50 WBC 7.6 RBC 4.34 Hgb 11.7 L Hct 38.4 MCV 88.5 MCH 27.0 MCHC 30.5 L RDW Std Deviation 44.2 H RDW Coeff of Amandeep 13.6 Plt Count 321 MPV 10.2 Immature Gran % (Auto) 0.100 Neut % (Auto) 44.2 L Lymph % (Auto) 45.6 H Barber % (Auto) 7.8 Eos % (Auto) 1.9 Baso % (Auto) 0.4 Absolute Neuts (auto) 3.3 Absolute Lymphs (auto) 3.45 Nucleated RBC % 0 Sodium 142 Potassium 4.2 Chloride 109 H Carbon Dioxide 29.0 Anion Gap 4 L BUN 16 Creatinine 1.10 H Estim Creat Clear Calc 40.49 Est GFR (MDRD) Af Amer 63 Est GFR (MDRD) Non-Af 52 L BUN/Creatinine Ratio 14.5 Glucose 118 H Calcium 9.0 Troponin I High Sens 15 23 Radiography Diagnostic Testing: Clinical Impression(s) from Imaging Studies Chest X-Ray 06/28/22 01:15 IMPRESSION: No significant interval change or acute process. Electronically Signed: Camron Chaudhari MD at 2:13 EST , Chest CTA 06/28/22 03:00 IMPRESSION: Negative for PE. No thoracic aortic dissection. 20 mm left thyroid nodule. ACR White Paper guidelines (Tigre JK, et al. JACR 2015;12(2):143-50) suggest further evaluation with nonemergent thyroid ultrasound. Electronically Signed: Camron Chaudhari MD at 4:05 EST , Chest x-ray shows no significant change. CT scan of the chest showed no pulmonary embolism or aortic dissection. EKG Initial EKG: Comments: EKG done for chest pain read by me shows rapid rhythm that is regular without a clear P waves most consistent with a flutter with 2-1 block. There is quite a bit of baseline variation. There is no definitive evidence of acute ST elevation or depression. Overall rate is 132. QRS duration is normal. QTC is long at 494 ms. Discharge Plan Triage Chief Complaint: Chest Pain ED Provider: Domingo Zeng Dx/Rx/DC Orders Clinical Impression: Intermittent atrial flutter, Chest pain Instructions: ED Atrial Flutter Prescriptions: No Action amlodipine 5 MG tablet 10 mg PO DAILY atorvastatin 40 MG tablet 80 mg PO QHS gabapentin 300 MG capsule 300 mg PO BID Label Comments: TAKE 1 CAPSULE BY MOUTH TWICE A DAY carvedilol 6.25 MG tablet 6.25 mg PO BID Label Comments: TAKE 1 TABLET BY MOUTH TWICE A DAY WITH MEALS aspirin 81 MG tablet,chewable 81 mg PO DAILY Label Comments: TAKE 1 TABLET BY MOUTH EVERY DAY cyclobenzaprine 10 mg tablet 10 mg PO TID PRN (Reason: Muscle Spasm) Qty: 20 0RF Primary Care Provider: Marquez Garcia Chi Referrals: Marquez Garcia Chi, MD [Primary Care Provider] - Activity Restrictions/Additional Instructions: Follow-up with your university counselor as soon as possible to discuss symptoms and medications. Disposition Disposition: Home, Self Care
[2022-06-28] MEDS: 0.9% Normal Saline 1,000 ML 1000 ML IV (01:25)
[2022-06-28] MEDS: LORazepam 2 MG/ML Syringe 1 MG IV (01:26)
[2022-06-28] MEDS: Ondansetron 4 MG/2 ML Vial IV (01:26)
[2022-06-28] MEDS: Aspirin 81 MG TAB.CHEW 324 MG PO (01:26)
[2022-06-28] MEDS: dilTIAZem 25 MG/5 ML Vial 10 MG IV BOLUS (01:32)
[2022-06-28 01:34] VITALS: PULSE 139; O2SAT 99
[2022-06-28 01:42] LABS: Absolute Lymphocyte Count 3.45 X10^3/uL (0.83-4.51); Absolute Neutrophil Count 3.3 X10^3/uL (2.0-7.7); Basophil# 0.03 X10^3/uL; Basophil% 0.4 % (0-1); Eosinophil# 0.14 X10^3/uL; Eosinophils% 1.9 % (0-5); Hematocrit 38.4 % (37-47); Hemoglobin 11.7 g/dL (12.0-15.0); Lymphocyte # 3.45 X10^3/ul (0.83-4.51); Lymphocyte % 45.6 % (19-41); Mean Corp Hgb Conc 30.5 g/dL (32-36); Mean Corpuscular Volume 88.5 fL (81-99); Mean Platelet Vol. 10.2 fl (6.2-12.0); Monocyte# 0.59 X10^3/uL; Monocyte% 7.8 % (0-10); NRBC Flagged by Analyzer 0 % (0-5); Neutrophil # 3.34 X10^3/uL (2.7-7.7); Neutrophil % 44.2 % (47-70); Platelet Count 321 K/mm3 (150-450); RBC Distribution Width CV 13.6 % (11.6-14.6); RBC Distribution Width SD 44.2 fl (35.1-43.9); Red Blood Count 4.34 M/mm3 (4.2-5.4); White Blood Count 7.6 K/mm3 (4.4-11.0)
[2022-06-28 02:00] VITALS: BP 122/89; PULSE 133; RESP 17; O2SAT 99
[2022-06-28 02:07] LABS: Anion Gap 4 (5-15); BUN 16 mg/dL (7-18); BUN/Creat Ratio 14.5 RATIO (10-20); Chloride 109 mmol/L (98-107); EST Glomerular Filtration Rate 52 mL/min (>60); Est Glom Filt Rate - Afr Amer 63 mL/min (>60); Estimated Creatinine Clearance 40.49 ml/min; Glucose 118 mg/dL (74-106); Potassium 4.2 mmol/L (3.5-5.1); Sodium Level 142 mmol/L (136-145); Troponin-I HS (w/2H Reflex) 15 pg/mL (3.0-54.0)
--- NOTE | 2022-06-28 03:00 | CT_ITS ---
EXAM: CT ANGIOGRAPHY CHEST WITHOUT AND WITH INTRAVENOUS CONTRAST CLINICAL INDICATION: chest pain, PE hx TECHNIQUE: Helically acquired angiography images were obtained of the chest without and with intravenous contrast. This CT exam was performed using one or more of the following dose reduction techniques: automated exposure control, adjustment of the mA and/or kV according to patient size, and/or use of iterative reconstruction technique. This report was created using [employer] report generation technology. MIP reconstructed images were created and reviewed. CONTRAST: IV 100mL Isovue-370 RADIATION DOSE: Total DLP: 544.60 mGy-cm. COMPARISON: Previous CTA of 08/27/2017. FINDINGS: PULMONARY ARTERIES: Unremarkable. Normal in caliber. No evidence of pulmonary embolism. AORTA: Unremarkable. Normal in caliber. No evidence of dissection. GREAT VESSELS OF AORTIC ARCH: Unremarkable. Normal in caliber. No evidence of dissection. LUNGS AND PLEURAL SPACES: Minimal dependent atelectasis within both lungs. No pleural effusion or thickening. No pneumothorax. HEART: No coronary artery calcification is visualized. No significant pericardial effusion. MEDIASTINUM: Unremarkable. No mediastinal or hilar adenopathy. Esophagus is unremarkable. No hiatal hernia. THYROID: Left thyroid lobe contains a 20 mm dominant hypodense nodule with a slightly thickened wall. This nodule has enlarged since the prior CT, when it measured 14 mm in maximal diameter. BONES/JOINTS: No acute osseous abnormality. Extensive lower cervical degenerative changes. Midthoracic degenerative spurring. No suspicious lytic or blastic abnormality. GALLBLADDER AND BILE DUCTS: Cholecystectomy. Visualized liver, spleen, pancreas, adrenal glands and upper poles are unremarkable. No pneumoperitoneum is noted. OTHER FINDINGS: Large body habitus. CT/CTA Chest W/WO Contrast IMPRESSION: Negative for PE. No thoracic aortic dissection. 20 mm left thyroid nodule. ACR White Paper guidelines (Tigre JK, et al. JACR 2015;12(2):143-50) suggest further evaluation with nonemergent thyroid ultrasound. Electronically Signed: Camron Chaudhari MD at 4:05 EST ,
[2022-06-28 03:06] VITALS: BP 113/67; PULSE 121; RESP 13; O2SAT 100
[2022-06-28] MEDS: Morphine 4 MG/ML Syringe IV (03:07)
[2022-06-28 03:40] LABS: Reflex Troponin-HS? (from REC) Y
[2022-06-28 04:02] VITALS: PULSE 77; RESP 20; O2SAT 97
[2022-06-28 04:14] LABS: Troponin-I HS 23 pg/mL (3.0-54.0)
[2022-06-28 04:33] VITALS: BP 114/73; PULSE 74; RESP 16; O2SAT 97
== END 2022-06-28 04:34 | disposition home or self-care (01) ==
PROVIDERS: Emergency Provider Emergency Medicine; PCP Family Medicine Geriatric Medicine; Visit Provider Emergency Medicine
DX: R07.9 Chest pain, unspecified (principal); I48.92 Unspecified atrial flutter; I10 Essential (primary) hypertension
CPT/HCPCS: 71045; 71275; 80048; 84484; 85025; 93005; 96361; 96374; 96375; 99285; J7030; Q9967; A4216; J2405

== ENCOUNTER → 2022-07-02 | Outpatient (CLI) | payer MEDICARE, SELFPAY ==
[2022-07-02 17:06] LABS: Absolute Lymphocyte Count 2.15 X10^3/uL (0.83-4.51); Basophil# 0.05 X10^3/uL; Basophil% 0.8 % (0-1); Eosinophil# 0.09 X10^3/uL; Eosinophils% 1.5 % (0-5); Lymphocyte # 2.15 X10^3/ul (0.83-4.51); Lymphocyte % 36.5 % (19-41); Mean Corp Hgb Conc 31.6 g/dL (32-36); Mean Corpuscular Hgb 27.3 pg (27.0-32.0); Mean Corpuscular Volume 86.4 fL (81-99); Mean Platelet Vol. 10.6 fl (6.2-12.0); Monocyte# 0.56 X10^3/uL; Monocyte% 9.5 % (0-10); NRBC Flagged by Analyzer 0 % (0-5); Neutrophil # 3.03 X10^3/uL (2.7-7.7); Neutrophil % 51.5 % (47-70); Platelet Count 286 K/mm3 (150-450); RBC Distribution Width SD 44.1 fl (35.1-43.9); White Blood Count 5.9 K/mm3 (4.4-11.0)
[2022-07-02 17:36] LABS: Vitamin D,25 Hydroxy 19.9 ng/mL
[2022-07-02 18:10] LABS: ALB/GLOB Ratio 0.7 RATIO (0.9-2.4); AST(SGOT) 20 U/L (15-37); Alanine Aminotransfer ALT/SGPT 29 U/L (13-56); Albumin, Serum 3.3 g/dL (3.2-5.0); Alkaline Phosphatase 146 U/L (45-117); Anion Gap 7 (5-15); BUN 16 mg/dL (7-18); BUN/Creat Ratio 14.3 RATIO (10-20); Calcium,Total 8.8 mg/dL (8.5-10.1); Chloride 106 mmol/L (98-107); Creatinine, Serum 1.12 mg/dL (0.55-1.02); EST Glomerular Filtration Rate 51 mL/min (>60); Est Glom Filt Rate - Afr Amer 62 mL/min (>60); Globulin 4.5 g/dL (2.2-4.2); Glucose 105 mg/dL (74-106); Potassium 3.8 mmol/L (3.5-5.1); Protein, Total 7.8 g/dL (6.4-8.2); Sodium Level 139 mmol/L (136-145); Thyroid Stim Hormone (TSH) 1.03 uIU/mL (0.358-3.74)
== END | disposition home or self-care (01) ==
LOC: POLAB3 13:57
PROVIDERS: PCP Family Medicine Geriatric Medicine; Visit Provider Family Medicine Geriatric Medicine
DX: I10 Essential (primary) hypertension (principal); E55.9 Vitamin D deficiency, unspecified
CPT/HCPCS: 36415; 80053; 82306; 84443; 85025

== ENCOUNTER 2022-07-09 02:09 | Emergency (ER) | payer MEDICARE, SELFPAY ==
[2022-07-09 02:10] VITALS: BP 160/96; PULSE 68; RESP 18; TEMP 36.6; O2SAT 100; BMI 43.9
--- NOTE | 2022-07-09 02:17 | RAD_ITS ---
INDICATION: injury EXAMINATION/TECHNIQUE: X-RAY - LEFT XR Wrist Min 3 Views 4 VIEWS COMPARISON: None. FINDINGS: BONES: No definite fracture demonstrated. Osteopenic. JOINTS: No dislocation. SOFT TISSUES: Unremarkable. RAD/Wrist min 3 Views IMPRESSION: No evidence of fracture. Electronically Signed: Sarahy Mesa MD at 3:19 EST ,
--- NOTE | 2022-07-09 02:17 | RAD_ITS ---
STUDY: X-RAY - LEFT KNEE REASON FOR EXAM: Female, 67 years old. injury TECHNIQUE: 4 view(s) of the knee. COMPARISON: None. FINDINGS: Normal visualized distal femur. Normal visualized proximal tibia and fibula. Normal proximal tibiofibular articulation. There is severe degenerative arthrosis of the medial femorotibial compartment with severe joint space narrowing. There is mild degenerative arthrosis of the lateral femorotibial compartment. There is severe degenerative arthrosis of the patellofemoral articulation. The soft tissue structures are unremarkable. RAD/Knee 4 or More Views IMPRESSION: Degenerative arthrosis. Electronically Signed: Jaiden Sheridan MD at 2:59 EST ,
--- NOTE | 2022-07-09 02:18 | ED.VIS.FALL ---
HPI HPI - Fall History of Present Illness Chief Complaint: Fall Informant: patient Occured/Mechanism Occurred: Yesterday Pain/Injury Pain Location: upper extremity and lower extremity Quality of Pain: Aching and Throbbing Current Severity: Moderate Maximum Severity: Moderate Narrative Narrative: Patient presents secondary to left wrist and left knee pain after a fall. About 10 PM last evening she was in her kitchen packing her lunch when she slipped in a puddle of water. She fell landing on her left side. She states she is had ice on her left wrist for the past 3 hours but pain keeps increasing. She is right-hand dominant. She denies striking her head or loss of consciousness. She is not on anticoagulants. [facility] Medical History History of pulmonary embolism History of stroke Hyperlipidemia Hypertension Type 2 diabetes mellitus Home Medications amlodipine 5 mg tablet 10 mg PO DAILY BLOOD PRESSURE 10/10/15 [History Last Taken 05/28/17] atorvastatin 40 mg tablet 80 mg PO QHS CHOLESTEROL 05/20/16 [History Last Taken 05/28/17] aspirin 81 mg chewable tablet 81 mg PO DAILY 10/09/18 [History Last Taken Unknown] carvedilol 6.25 mg tablet 6.25 mg PO BID 10/09/18 [History Last Taken Unknown] gabapentin 300 mg capsule 300 mg PO BID 10/09/18 [History Last Taken Unknown] cyclobenzaprine 10 mg tablet 10 mg PO TID PRN Muscle Spasm #20 TABLETS 04/28/22 [Rx Last Taken Unknown] Allergy/AdvReac Type Severity Reaction Status Date / Time lisinopril Allergy Unknown Unknown Verified 04/28/22 13:10 latex Allergy Rash Verified 04/28/22 13:10 oxycodone [Oxycodone] AdvReac Itching Verified 04/28/22 13:10 Family History Other Cancer Heart disease Surgical History History of cholecystectomy History of total knee replacement Social History Smoking Status: Never smoker ROS ROS ED Constitutional Constitutional ED: Denies chills or fever(s) Eyes Eyes: Denies change in vision or discharge from eye(s) ENT ENT ED: Denies discharge from eye(s), rhinorrhea or sore throat Cardiovascular Cardiovascular: Denies chest pain or palpitations Respiratory/Chest Respiratory/Chest: Denies cough or dyspnea Gastrointestinal Gastrointestinal: Denies abdominal pain, nausea or vomiting Genitourinary Genitourinary ED: Denies dysuria Musculoskeletal Musculoskeletal: Reports extremity pain; Denies back pain or neck pain Integumentary Denies Abrasions or rash Neurologic Neurologic: Denies headache(s), paresthesias or weakness Psychiatric Psychiatric: Denies anxiety or depression Allergic/Immunologic Allergic/Immunologic ED: Denies lip swelling or urticaria EXAM Physical Exam Const Vital Signs: 07/09/22 02:10 07/09/22 02:12 Temperature 97.9 F Temperature Source Temporal Pulse Rate 68 Respiratory Rate 18 Respiratory Effort Normal Non-Labored Blood Pressure 160/96 H Blood Pressure Mean 117 Pulse Ox 100 Oxygen Delivery Method Room Air Positive well nourished and well developed General Appearance ED: well developed HEENT Reports normocephalic and head/scalp atraumatic Eyes PERRL and EOMs intact bilaterally Neck supple Neck Narrative: No C-spine tenderness. Chest Wall inspection of chest normal and palpation of chest normal Resp normal respiratory effort and clear to auscultation bilaterally Cardio regular rate and regular rhythm GI normal to inspection, nondistended, normoactive bowel sounds Palpation: soft Extremity Extremity Narrative: Tenderness to the left wrist with mild edema. No tenderness of the hand itself. No tenderness at the elbow or shoulder. Mild tenderness to the anterior left knee. No significant edema or ecchymosis. Good range of motion. Neuro oriented x3 and no sensory deficits noted Sensorium / Orientation: alert Psych mental status grossly normal Skin no rashes or lesions noted MDM MDM MDM Narrative Medical decision making narrative: Patient had taken ibuprofen after her fall. She is given Tylenol here. X-ray of the left knee and left wrist obtained. Radiography Diagnostic Testing: Clinical Impression(s) from Imaging Studies Knee X-Ray 07/09/22 02:17 IMPRESSION: Degenerative arthrosis. Electronically Signed: Jaiden Sheridan MD at 2:59 EST Reading Location ID and State: [facility] / [place] Tel , Service support , Wrist X-Ray 07/09/22 02:17 IMPRESSION: No evidence of fracture. Electronically Signed: Sarahy Mesa MD at 3:19 EST , Treatment and Re-Evaluation Narrative: Left wrist and left knee x-rays from interpretation show no obvious fracture. Arthritic changes noted in the knee. Radiology interpretation is reviewed and agrees. Patient be placed in a Velcro wrist splint. Return instructions given. Discharge Plan Triage Chief Complaint: Fall ED Provider: Jenelle Luis Dx/Rx/DC Orders Clinical Impression: Fall, Left wrist sprain, Contusion of left knee Instructions: ED Contusion, Lower Extremity, ED Mechanical Fall, ED Wrist Sprain Prescriptions: No Action amlodipine 5 MG tablet 10 mg PO DAILY atorvastatin 40 MG tablet 80 mg PO QHS gabapentin 300 MG capsule 300 mg PO BID Label Comments: TAKE 1 CAPSULE BY MOUTH TWICE A DAY carvedilol 6.25 MG tablet 6.25 mg PO BID Label Comments: TAKE 1 TABLET BY MOUTH TWICE A DAY WITH MEALS aspirin 81 MG tablet,chewable 81 mg PO DAILY Label Comments: TAKE 1 TABLET BY MOUTH EVERY DAY cyclobenzaprine 10 mg tablet 10 mg PO TID PRN (Reason: Muscle Spasm) Qty: 20 0RF Primary Care Provider: Marquez Garcia Chi Referrals: Marquez Garcia Chi, MD [Primary Care Provider] - 1 Week if not improving Disposition Disposition: Home, Self Care
[2022-07-09] MEDS: Acetaminophen 500 MG Tablet 1000 MG PO (02:35)
== END 2022-07-09 03:55 | disposition home or self-care (01) ==
PROVIDERS: Emergency Provider Emergency Medicine; PCP Family Medicine Geriatric Medicine; Visit Provider Emergency Medicine
DX: S63.92XA Sprain of unspecified part of left wrist and hand, initial encounter (principal); S80.02XA Contusion of left knee, initial encounter; W19.XXXA Unspecified fall, initial encounter; Z86.711 Personal history of pulmonary embolism; Z86.73 Personal history of transient ischemic attack (TIA), and cerebral infarction without residual deficits
CPT/HCPCS: 73110; 73564; 99283

== ENCOUNTER → 2022-07-17 | Outpatient (CLI) | payer MEDICARE, SELFPAY ==
[2022-07-17 10:30] LABS: Absolute Lymphocyte Count 3.12 X10^3/uL (0.83-4.51); Absolute Neutrophil Count 6.9 X10^3/uL (2.0-7.7); Basophil# 0.03 X10^3/uL; Basophil% 0.3 % (0-1); Eosinophil# 0.17 X10^3/uL; Eosinophils% 1.5 % (0-5); Hematocrit 38.3 % (37-47); Hemoglobin 11.9 g/dL (12.0-15.0); Lymphocyte # 3.12 X10^3/ul (0.83-4.51); Mean Corp Hgb Conc 31.1 g/dL (32-36); Monocyte# 0.82 X10^3/uL; Monocyte% 7.4 % (0-10); NRBC Flagged by Analyzer 0 % (0-5); Neutrophil # 6.94 X10^3/uL (2.7-7.7); Neutrophil % 62.3 % (47-70); Platelet Count 315 K/mm3 (150-450); RBC Distribution Width CV 14.5 % (11.6-14.6); RBC Distribution Width SD 45.8 fl (35.1-43.9); White Blood Count 11.1 K/mm3 (4.4-11.0)
[2022-07-17 10:49] LABS: Anion Gap 5 (5-15); BUN 24 mg/dL (7-18); BUN/Creat Ratio 19.7 RATIO (10-20); Calcium,Total 8.8 mg/dL (8.5-10.1); Chloride 108 mmol/L (98-107); Creatinine, Serum 1.22 mg/dL (0.55-1.02); EST Glomerular Filtration Rate 47 mL/min (>60); Est Glom Filt Rate - Afr Amer 56 mL/min (>60); Glucose 122 mg/dL (74-106); Potassium 4.1 mmol/L (3.5-5.1); Sodium Level 138 mmol/L (136-145); Troponin-I HS 9 pg/mL (3.0-54.0)
[2022-07-18 20:07] LABS: Myoglobin, Serum < 21 ng/mL (25-58)
[2022-07-22 09:53] LABS: CPK Total, Creatine Kinase 52 U/L (26-192)
== END | disposition home or self-care (01) ==
LOC: POLAB3 10:10
PROVIDERS: PCP Family Medicine Geriatric Medicine; Visit Provider Family Medicine Geriatric Medicine
DX: R07.9 Chest pain, unspecified (principal)
CPT/HCPCS: 36415; 80048; 82550; 83874; 84484; 85025

== ENCOUNTER 2022-08-15 21:07 | Emergency (ER) | payer MEDICARE, SELFPAY ==
[2022-08-15 21:07] VITALS: BP 143/125; PULSE 81; RESP 20; TEMP 36.6; O2SAT 100; BMI 44.8
--- NOTE | 2022-08-15 21:14 | EKG12_ITS ---
Test Reason : CP Blood Pressure : / mmHG Vent. Rate : 140 BPM Atrial Rate : 000 BPM P-R Int : 000 ms QRS Dur : 120 ms QT Int : 324 ms P-R-T Axes : 000 012 029 degrees QTc Int : 494 ms Supraventricular tachycardia Non-specific intra-ventricular conduction delay Abnormal ECG Confirmed by NIXON SANDERS, ILYA ([id number]), rewrite editor URIAH ROE ([id number]) on 08/18/2022 11:13:55 AM Referred By: MELO Confirmed By:ILYA ALICEA MD
--- NOTE | 2022-08-15 21:20 | RAD_ITS ---
EXAM: XR CHEST, 1 VIEW CLINICAL INDICATION: chest pain TECHNIQUE: Frontal view of the chest. This report was created using [employer] report generation technology. COMPARISON: 06.28.22 FINDINGS: LUNGS AND PLEURAL SPACES: Unremarkable. No consolidation or edema. No pneumothorax. No effusion. HEART: Unremarkable. Cardiac silhouette not enlarged. MEDIASTINUM: Central airways and mediastinal contour are unremarkable. BONES/JOINTS: Unremarkable. SOFT TISSUES: Unremarkable. RAD/Chest 1 View (Portable) IMPRESSION: No radiographic evidence of acute cardiopulmonary disease. Electronically Signed: Dmitriy Rubio MD at 21:31 EST ,
[2022-08-15 21:58] LABS: Absolute Lymphocyte Count 2.51 X10^3/uL (0.83-4.51); Absolute Neutrophil Count 4.7 X10^3/uL (2.0-7.7); Basophil# 0.04 X10^3/uL; Basophil% 0.5 % (0-1); Eosinophil# 0.16 X10^3/uL; Hematocrit 38.1 % (37-47); Hemoglobin 11.8 g/dL (12.0-15.0); Lymphocyte # 2.51 X10^3/ul (0.83-4.51); Lymphocyte % 31.5 % (19-41); Mean Corpuscular Hgb 27.3 pg (27.0-32.0); Mean Platelet Vol. 10.5 fl (6.2-12.0); Monocyte# 0.59 X10^3/uL; Monocyte% 7.4 % (0-10); NRBC Flagged by Analyzer 0 % (0-5); Neutrophil # 4.65 X10^3/uL (2.7-7.7); Neutrophil % 58.3 % (47-70); Platelet Count 329 K/mm3 (150-450); RBC Distribution Width CV 14.4 % (11.6-14.6); RBC Distribution Width SD 46.1 fl (35.1-43.9); Red Blood Count 4.33 M/mm3 (4.2-5.4)
--- NOTE | 2022-08-15 22:12 | ED.VIS.CHEST ---
HPI History of Present Illness Chief Complaint: Chest Pain Informant: patient Onset/Context/Timing Onset: Today Activity at onset: sudden Timing: Continuous Quality: Positive for Sharp Location: Right Chest and - (And right arm) Worsened By: Nothing Relieved By: Nothing Associated Symptoms: Positive for Nausea, Diaphoresis, Lightheadedness and Palpitations; Negative for Vomiting, Dyspnea, Cough, Fever or Acid Reflux Narrative Narrative: Patient presents with right-sided chest pain that began approximately 2 hours prior to arrival. Patient states the pain began suddenly. Patient states pain is sharp. Patient states pain is localized to the right chest and radiates into her right arm. Patient states nothing makes it better nothing makes it worse. Patient states she does feel clammy and nauseated. Patient also admits to some dizziness with that she describes as a spinning sensation. Patient states she was having some palpitations earlier today. Patient denies any shortness of breath or cough. Patient denies any fevers or chills. CVD Risk Factors: Positive for Hypertension and Family History 1' </=55; Negative for Diabetes, Hypercholesterolemia or Smoking PE Risk Factors: Negative for Recent Travel/Surgery, Recent Immobilization, Prior DVT or PE, Cancer or OCP + Smoking + >/=35 PFSH PFS Medical History Anxiety and depression Contact with or suspected exposure to other viral communicable disease Contusion of left elbow, initial encounter Encounter for screening for COVID-19 Essential hypertension History of DVT (deep vein thrombosis) History of pulmonary embolism History of stroke Hyperlipidemia RUTH (obstructive sleep apnea) Paroxysmal atrial fibrillation Paroxysmal atrial flutter Type 2 diabetes mellitus Home Medications amlodipine 5 mg tablet 10 mg PO DAILY BLOOD PRESSURE 10/10/15 [History Last Taken 05/28/17] atorvastatin 40 mg tablet 80 mg PO QHS CHOLESTEROL 05/20/16 [History Last Taken 05/28/17] aspirin 81 mg chewable tablet 81 mg PO DAILY 10/09/18 [History Last Taken Unknown] cyclobenzaprine 10 mg tablet 10 mg PO TID PRN Muscle Spasm #20 TABLETS 04/28/22 [Rx Last Taken Unknown] carvedilol 12.5 mg tablet 12.5 mg PO BID #180 tabs 08/06/22 [Rx Last Taken Unknown] citalopram 10 mg tablet 10 mg PO DAILY 08/06/22 [History Last Taken Unknown] gabapentin 800 mg tablet 800 mg PO TID 08/06/22 [History Last Taken Unknown] Allergy/AdvReac Type Severity Reaction Status Date / Time lisinopril Allergy Unknown Unknown Verified 08/15/22 21:09 latex Allergy Rash Verified 08/15/22 21:09 oxycodone [Oxycodone] AdvReac Itching Verified 08/15/22 21:09 Family History Mother Diabetes Cancer Myocardial infarction Hypertension Father Myocardial infarction Heart disease Hypertension Brother Cancer Hypertension Sister Bipolar disorder Schizophrenia Hypertension Surgical History History of appendectomy History of carpal tunnel release History of cerebral aneurysm repair (~2012) History of cholecystectomy History of hysterectomy History of shoulder surgery History of total knee replacement Social History Smoking Status: Never smoker alcohol intake: never substance use type: does not use caffeine: Yes Type: carbonated beverages Number of servings: 1 ROS ROS ED Constitutional Constitutional ED: Denies chills or fever(s) Eyes Eyes: Denies blurry vision or change in vision ENT ENT ED: Denies rhinorrhea or sore throat Cardiovascular Cardiovascular: Reports chest pain and palpitations Respiratory/Chest Respiratory/Chest: Denies cough or dyspnea Gastrointestinal Gastrointestinal: Reports nausea; Denies abdominal pain or vomiting Genitourinary Genitourinary ED: Denies dysuria or hematuria Musculoskeletal Musculoskeletal: Denies back pain or neck pain Integumentary Denies abscess or rash Neurologic Neurologic: Denies headache(s) or weakness Allergic/Immunologic Allergic/Immunologic ED: Denies mouth swelling or urticaria EXAM Physical Exam Const Vital Signs: 08/15/22 21:07 08/15/22 23:00 08/15/22 23:48 Temperature 97.8 F Temperature Source Temporal Pulse Rate 81 77 Respiratory Rate 20 H 16 Blood Pressure 143/125 H 108/64 Blood Pressure Mean 131 78 Pulse Ox 100 99 Oxygen Delivery Method Room Air Room Air Room Air Positive well nourished, well developed and obese General Appearance ED: well developed and NAD Nutritional Appearance: obese HEENT normocephalic and atraumatic Eyes PERRL and EOMs intact bilaterally Neck supple and no JVD Chest Wall Chest Narrative: There is reproducible tenderness over the right anterior chest wall. There is no bony crepitance or step-off. Chest: tenderness rib and pectoral muscle Resp normal respiratory effort and clear to auscultation bilaterally Effort and Inspection: Negative for respiratory distress Cardio Rate: tachycardic Rhythm: abnormal rhythm irregularly irregular GI normal to inspection, nondistended, normoactive bowel sounds, soft to palpation, non-tender and non-distended Extremity normal to inspection General Extremety ED: Negative for edema or tenderness General Extremity: Negative for edema Neuro oriented x3, CN's II-XII intact bilaterally and no sensory deficits noted Sensorium / Orientation: awake and alert Motor Exam: strength 5/5 throughout Psych mental status grossly normal Heart Score History: Slightly/Non-Suspicious ECG: Normal Age: >/= 65 years Risk Factors: 1 or 2 Risk Factors Score: 3 MDM MDM MDM Narrative Medical decision making narrative: Differential diagnosis includes cardiac ischemia, pulmonary embolism, pneumonia, pneumothorax, and musculoskeletal etiology. CBC will be obtained to assess for leukocytosis and anemia. Basic metabolic profile will be obtained to assess for electrolyte abnormality and renal function. Chest x-ray will be obtained to assess for pneumonia, pneumothorax, and rib fracture. High-sensitivity troponin will be obtained to assess for cardiac ischemia. EKG will be obtained to assess for cardiac ischemia and dysrhythmia. Lab Data Lab results narrative: CBC was reviewed and showed a mild anemia with a hemoglobin of 11.8. Basic metabolic profile was reviewed and showed a BUN of 27 and creatinine 1.5. D-dimer was reviewed and was slightly elevated at 0.95. Labs: Laboratory Results - last 24 hr 08/15/22 08/15/22 08/15/22 21:50 21:50 21:50 WBC 8.0 RBC 4.33 Hgb 11.8 L Hct 38.1 MCV 88.0 MCH 27.3 MCHC 31.0 L RDW Std Deviation 46.1 H RDW Coeff of Amandeep 14.4 Plt Count 329 MPV 10.5 Immature Gran % (Auto) 0.300 Neut % (Auto) 58.3 Lymph % (Auto) 31.5 [place] % (Auto) 7.4 Eos % (Auto) 2.0 Baso % (Auto) 0.5 Absolute Neuts (auto) 4.7 Absolute Lymphs (auto) 2.51 Nucleated RBC % 0 D-Dimer Quant (PE/DVT) 0.95 H* Sodium 142 Potassium 4.1 Chloride 107 Carbon Dioxide 25.0 Anion Gap 10 BUN 27 H Creatinine 1.50 H Estim Creat Clear Calc 28.39 Est GFR (MDRD) Af Amer 44 L Est GFR (MDRD) Non-Af 37 L BUN/Creatinine Ratio 18.0 Glucose 192 H Calcium 8.9 Troponin I High Sens 16 Radiography Chest X-Ray - ED: 1 View, Read by ED Physician, Read by Radiologist and No Acute Disease Diagnostic Testing: Clinical Impression(s) from Imaging Studies Chest X-Ray 08/15/22 21:20 IMPRESSION: No radiographic evidence of acute cardiopulmonary disease. Electronically Signed: Dmitriy Rubio MD at 21:31 EST , Portable 1 view chest x-ray was obtained. On my independent interpretation, lung cohen are clear. There is normal cardiac silhouette. Bony thorax is normal. There is no acute process noted. Radiologist also interpreted the x-ray and agrees. CTA of the chest was obtained. On my independent interpretation, there is no evidence of aortic dissection or pulmonary embolus. There is no evidence of pneumothorax or pneumonia. Radiologist also interpreted the CT scan. EKG Initial EKG: Attestation: I personally reviewed and interpreted this EKG as follows: Interpretation: No Acute Injury Pattern and Atrial Fibrillation (140) Comments: EKG was obtained. On my interpretation, it shows atrial fibrillation with a rate of 140. There are no acute ST or T wave changes. QRS interval is borderline at 120 ms. QTc interval was borderline at 494 ms. [place] was normal. Prior EKG tracings: available for review Prior: Unchanged (06/28/2022) Treatment and Re-Evaluation Narrative: Patient was given IV fluids. Patient was given a dose of Valium. Because of the elevated D-dimer, CTA of the chest was obtained. Patient is feeling somewhat better on reevaluation. Patient states her dizziness is approximately 50% better. Patient is still complaining of a headache. Patient was given a dose of [place]. Patient's heart rate has improved. Patient was advised of her findings. Care of the patient was turned over to the overnight physician pending CTA report. Discharge Plan Triage Chief Complaint: Chest Pain ED Provider: Jaron Worrell Dx/Rx/DC Orders Clinical Impression: Chest pain, Paroxysmal atrial fibrillation, Dizziness Prescriptions: No Action gabapentin 800 mg tablet 800 mg PO TID citalopram 10 mg tablet 10 mg PO DAILY amlodipine 5 MG tablet 10 mg PO DAILY atorvastatin 40 MG tablet 80 mg PO QHS aspirin 81 MG tablet,chewable 81 mg PO DAILY Label Comments: TAKE 1 TABLET BY MOUTH EVERY DAY cyclobenzaprine 10 mg tablet 10 mg PO TID PRN (Reason: Muscle Spasm) Qty: 20 0RF carvedilol 12.5 mg tablet 12.5 mg PO BID Qty: 180 3RF Rx Instructions: must administer with a meal/food Primary Care Provider: Marquez Garcia Chi Referrals: Marquez Garcia Chi, MD [Primary Care Provider] - 3-5 Days
[2022-08-15 22:25] LABS: Anion Gap 10 (5-15); BUN 27 mg/dL (7-18); Calcium,Total 8.9 mg/dL (8.5-10.1); Chloride 107 mmol/L (98-107); EST Glomerular Filtration Rate 37 mL/min (>60); Est Glom Filt Rate - Afr Amer 44 mL/min (>60); Estimated Creatinine Clearance 28.39 ml/min; Glucose 192 mg/dL (74-106); Potassium 4.1 mmol/L (3.5-5.1); Sodium Level 142 mmol/L (136-145); Troponin-I HS 16 pg/mL (3.0-54.0)
[2022-08-15] MEDS: diazePAM 5 MG Tablet 2.5 MG PO (22:59)
[2022-08-15] MEDS: Aspirin 81 MG TAB.CHEW 324 MG PO (22:59)
[2022-08-15 23:06] LABS: D-Dimer Quantitative (DVT/PE) 0.95 FEU/ug/m (0.27-0.49)
--- NOTE | 2022-08-15 23:44 | CT_ITS ---
STUDY: CTA CHEST REASON FOR EXAM: Female, 67 years old. Elevated D-dimer RADIATION DOSAGE (If Supplied By Facility): CTDIvol = ( 28.20 ) mGy, DLP = ( 701.24 ) mGycm TECHNIQUE: The examination was performed with the intravenous administration of IV 100mL Isovue-370. Post-processing of the angiographic images was performed, with multiplanar reformation and 3D reconstruction. Individualized dose optimization techniques were used for this CT. COMPARISON: CT 01/24/2022. FINDINGS: Heterogeneous thyromegaly. Normal enhancement of the bilateral pulmonary arteries. There is no demonstrated pulmonary embolism. No main pulmonary arterial enlargement. No aortic dissection or aneurysmal dilatation. Mild aortic arch atherosclerosis. Borderline cardiomegaly. No pericardial effusion. No densely calcified coronary atherosclerosis.. No mediastinal or hilar adenopathy. Unremarkable esophagus. Minimal bilateral peribronchial thickening. No airspace consolidation, effusion, pneumothorax. Mild dependent atelectasis. Right greater than left glenohumeral osteoarthritis. Acute osseous finding. Normal visualized upper abdomen. CT/CTA Chest W/WO Contrast IMPRESSION: No pulmonary embolism or evidence of acute airspace disease. Mild peribronchial thickening as can be seen with bronchitis/bronchiolitis. Borderline cardiomegaly without florid edema. Heterogeneous thyromegaly with suggestion of 1.2 cm left posterior thyroid nodule, not significantly changed from prior exam. Consider ultrasound follow-up if not previously assessed. Electronically Signed: Jose Alonso MD at 1:15 EST ,
[2022-08-15 23:48] VITALS: BP 108/64; PULSE 77; RESP 16; O2SAT 99
[2022-08-16] MEDS: 0.9% Normal Saline 1,000 ML 1000 ML IV (00:45)
[2022-08-16] MEDS: HYDROcodone Bitartrate/Apap 5/325 Tablet PO (00:53)
[2022-08-16 00:54] VITALS: BP 111/77; PULSE 61; RESP 18; O2SAT 99
[2022-08-16 02:17] VITALS: BP 137/93; PULSE 64; RESP 15; O2SAT 97
== END 2022-08-16 02:37 | disposition home or self-care (01) ==
PROVIDERS: Emergency Provider Emergency Medicine; PCP Family Medicine Geriatric Medicine; Visit Provider Emergency Medicine
DX: R07.9 Chest pain, unspecified (principal); I48.0 Paroxysmal atrial fibrillation; R42 Dizziness and giddiness; G47.33 Obstructive sleep apnea (adult) (pediatric); E66.9 Obesity, unspecified; Z86.718 Personal history of other venous thrombosis and embolism; Z86.73 Personal history of transient ischemic attack (TIA), and cerebral infarction without residual deficits; Z86.711 Personal history of pulmonary embolism
CPT/HCPCS: 71045; 71275; 80048; 84484; 85025; 85379; 93005; 96360; 99284; J7030; Q9967; A4216

== ENCOUNTER → 2022-08-28 | Outpatient (CLI) | payer MEDICARE, SELFPAY ==
--- NOTE | 2022-08-28 06:07 | ECHOD_ITS ---
Reason For Study: ATRIAL FIB/FLUTTER Procedure This was a 2D Doppler, Color Flow transthoracic echocardiogram. Exam performed in department. Left Ventricle Normal LV size. Left ventricular systolic function is normal. The estimated ejection fraction is 60 %. Stage 1 diastolic dysfunction. No regional wall motion abnormalities noted. Right Ventricle Normal RV size. Normal systolic function. Atria Normal left atrium. Normal right atrium. Mitral Valve Normal mitral valve. Tricuspid Valve Normal tricuspid valve. Mild to moderate (1-2+) tricuspid valve insufficiency. Pulmonary artery systolic pressure is 42 mmHg. Aortic Valve Trisinus/trileaflet aortic valve. Pulmonic Valve Normal pulmonic valve. Great Vessels Normal aortic root. The pulmonary artery is normal size. Normal inferior vena cava. Pericardium/Pleural No pericardial effusion. MMode/2D Measurements & Calculations LVIDd: 5.7 cm IVSd: 0.99 cm Ao root diam: 2.5 cm LVIDs: 3.3 cm LVPWd: 1.1 cm RVDd: 3.1 cm FS: 42.9 % LAV(MOD-bp): 62.1 ml LA A4 area: 19.6 cm2 LA dimension(2D): 4.9 cm LAV(MOD-bp) Indexed: 29.8 ml/m2 LAV(MOD-sp2): 61.7 ml LAV(MOD-sp4): 61.7 ml RA A4 area: 15.4 cm2 Time Measurements MV dec time: 0.17 sec Doppler Measurements & Calculations MV E max andi: 53.9 cm/sec Lat Peak E' Andi: 5.2 cm/sec Med Peak E' Andi: 5.6 cm/sec MV A max andi: 66.8 cm/sec E/E' lat: 10.4 E/E' med: 9.7 MV E/A: 0.81 MV dec slope: 331.3 cm/sec2 Ao V2 max: 161.1 cm/sec LV V1 max: 93.4 cm/sec Ao max P.4 mmHg LV V1 max P.5 mmHg Ao V2 mean: 106.2 cm/sec LV V1 mean P.1 mmHg Ao mean P.2 mmHg LV V1 mean: 69.0 cm/sec Ao V2 VTI: 37.7 cm LV V1 VTI: 26.7 cm AV (velocity ratio): 0.71 PA V2 max: 91.8 cm/sec TR max andi: 302.2 cm/sec PA V2 mean: 66.8 cm/sec TR max P.5 mmHg ECHO/Echo Complete Interpretation Summary Normal LV size. Left ventricular systolic function is normal. The estimated ejection fraction is 60 %. Stage 1 diastolic dysfunction. Pulmonary artery systolic pressure is 42 mmHg. Structurally normal valves. Ordering Physician: Alfonzo Broderick Referring Physician: Marquez Garcia Chi Performed By: Jan, Joanne, RDCS, RVT
--- NOTE | 2022-08-28 17:11 | STRESSREP ---
Stress Test Report Pharmacologic myocardial perfusion stress test. 67-year-old lady with a history of atrial fibrillation Resting EKG demonstrates sinus bradycardia with a rate of 50 bpm. Resting blood pressure is 142/92 mmHg. 0.4 mg of regadenoson was infused per usual protocol followed by rapid intravenous saline flush injection. Continuous EKG monitoring was performed. The maximum heart rate was 86 bpm which was 56% of max impacted heart rate the maximum workload was 1 metabolic equivalent. At rest there were no ST or T wave changes noted to suggest ischemia and at peak infusion nonspecific ST changes were noted which did not meet the criteria for ischemia. No clinical angina is noted. The final blood pressure was 152/98 mmHg. Myocardial perfusion protocol. 14.6 mCi of technetium 99m sestamibi was injected at rest. 0.4 mg of regadenoson was infused per usual protocol. At peak infusion 44.3 mCi of technetium 99m sestamibi was injected stress images were obtained stress and rest images were reconstructed and compared in the short axis vertical long and horizontal long axis. Gated images were also obtained. Perfusion SPECT analysis: Review of the stress images demonstrate normal uptake of tracer noted in all areas of the myocardium. The resting images similar demonstrated normal uptake of tracer noted in all areas of the myocardium. No areas of reversibility are noted to suggest ischemia and no previous infarct is noted. Gated SPECT analysis: The gated ejection fraction is 76%. Conclusion: Normal pharmacologic myocardial perfusion stress test. Preserved ejection fraction.
== END | disposition home or self-care (01) ==
LOC: CVS 06:06
PROVIDERS: PCP Family Medicine Geriatric Medicine; Visit Provider Internal Medicine Cardiovascular Disease
DX: Z01.810 Encounter for preprocedural cardiovascular examination (principal); I48.92 Unspecified atrial flutter
CPT/HCPCS: 78452; 93017; 93306; A9500; A4216; J2785

== ENCOUNTER → 2022-09-01 | Outpatient (CLI) | payer MEDICARE, SELFPAY ==
[2022-09-01 13:06] LABS: Anion Gap 8 (5-15); BUN 18 mg/dL (7-18); BUN/Creat Ratio 15.4 RATIO (10-20); Chloride 105 mmol/L (98-107); Creatinine, Serum 1.17 mg/dL (0.55-1.02); EST Glomerular Filtration Rate 49 mL/min (>60); Est Glom Filt Rate - Afr Amer 59 mL/min (>60); Glucose 101 mg/dL (74-106); Magnesium 2.3 mg/dL (1.6-2.6); Phosphorus 2.8 mg/dL (2.5-4.9); Potassium 4.1 mmol/L (3.5-5.1); Sodium Level 139 mmol/L (136-145)
== END | disposition home or self-care (01) ==
LOC: POLAB3 10:45
PROVIDERS: PCP Family Medicine Geriatric Medicine; Visit Provider Family Medicine Geriatric Medicine
DX: M62.838 Other muscle spasm (principal)
CPT/HCPCS: 36415; 80048; 83735; 84100

== ENCOUNTER → 2022-12-11 | Outpatient (CLI) | payer BC, MEDICARE, SELFPAY ==
[2022-12-11 12:53] LABS: Absolute Lymphocyte Count 2.25 X10^3/uL (0.83-4.51); Absolute Neutrophil Count 3.7 X10^3/uL (2.0-7.7); Basophil# 0.03 X10^3/uL; Basophil% 0.5 % (0-1); Eosinophil# 0.07 X10^3/uL; Eosinophils% 1.1 % (0-5); Hematocrit 37.8 % (37-47); Hemoglobin 11.9 g/dL (12.0-15.0); Lymphocyte # 2.25 X10^3/ul (0.83-4.51); Lymphocyte % 33.8 % (19-41); Mean Corp Hgb Conc 31.5 g/dL (32-36); Mean Corpuscular Hgb 28.2 pg (27.0-32.0); Mean Corpuscular Volume 89.6 fL (81-99); Mean Platelet Vol. 10.1 fl (6.2-12.0); Monocyte# 0.57 X10^3/uL; Monocyte% 8.6 % (0-10); NRBC Flagged by Analyzer 0 % (0-5); Neutrophil # 3.72 X10^3/uL (2.7-7.7); Neutrophil % 55.8 % (47-70); Platelet Count 312 K/mm3 (150-450); RBC Distribution Width CV 13.2 % (11.6-14.6); RBC Distribution Width SD 42.7 fl (35.1-43.9); Red Blood Count 4.22 M/mm3 (4.2-5.4); White Blood Count 6.7 K/mm3 (4.4-11.0)
[2022-12-11 13:23] LABS: ALB/GLOB Ratio 0.7 RATIO (0.9-2.4); AST(SGOT) 15 U/L (15-37); Alanine Aminotransfer ALT/SGPT 19 U/L (13-56); Albumin, Serum 3.2 g/dL (3.2-5.0); Alkaline Phosphatase 144 U/L (45-117); Anion Gap 4 (5-15); BUN 11 mg/dL (7-18); BUN/Creat Ratio 11.2 RATIO (10-20); Calcium,Total 8.8 mg/dL (8.5-10.1); Chloride 108 mmol/L (98-107); Creatinine, Serum 0.98 mg/dL (0.55-1.02); EST Glomerular Filtration Rate 60 mL/min (>60); Est Glom Filt Rate - Afr Amer 72 mL/min (>60); Globulin 4.3 g/dL (2.2-4.2); Glucose 94 mg/dL (74-106); Potassium 3.7 mmol/L (3.5-5.1); Protein, Total 7.5 g/dL (6.4-8.2); Sodium Level 140 mmol/L (136-145); Thyroid Stim Hormone (TSH) 0.78 uIU/mL (0.358-3.74)
== END | disposition home or self-care (01) ==
LOC: LAB 12:04
PROVIDERS: PCP Family Medicine Geriatric Medicine; Referring Provider Family Medicine Geriatric Medicine; Visit Provider Family Medicine Geriatric Medicine
DX: I10 Essential (primary) hypertension (principal)
CPT/HCPCS: 36415; 80053; 84443; 85025

== ENCOUNTER → 2023-01-05 | Outpatient (CLI) | payer BC, MEDICARE, SELFPAY ==
[2023-01-05 10:16] LABS: Mucous, Urine 0 SEEN /hpf (<or=2+); Red Blood Cells-Urine 0 SEEN /hpf (0-5)
[2023-01-05 10:25] LABS: Color, Urine Yellow (Yellow); Glucose, Dipstick Normal (Normal); Ketone-Dipstick Negative (Negative); Leukocyte Esterase-Dipstick 25 /ul (Negative); Nitrite-Dipstick Negative (Negative); Occult Blood-Urine 10 /ul (Negative); Protein-Dipstick 15 mg/dl (Negative); Specific Gravity, Urine 1.015 (1.002-1.030); Urine Bilirubin Dipstick Negative (Negative); Urine Clarity Sl. Cloudy (Clear); Urine Urobilinogen 1 mg/dl (Normal); Urine pH 6.5 (5.0 - 8.0)
[2023-01-05 10:40] LABS: Bacteria RARE /hpf (None Seen); Squamous Epithelial Cells - UA 5-10 SEEN /hpf (5-10); White Blood Cells 0-5 SEEN /hpf (0-5)
== END | disposition home or self-care (01) ==
LOC: LABSPEC 09:47
PROVIDERS: PCP Family Medicine Geriatric Medicine; Referring Provider Physician Assistant; Visit Provider Physician Assistant
DX: R30.0 Dysuria (principal)
CPT/HCPCS: 81001; 87086; 87088

== ENCOUNTER 2023-02-12 08:07 | Emergency (ER) | payer MEDICARE, SELFPAY ==
[2023-02-12 08:08] VITALS: PULSE 142; RESP 18; TEMP 36.2; O2SAT 99; BMI 45.6
[2023-02-12 08:13] VITALS: BP 121/80
--- NOTE | 2023-02-12 08:14 | EKG12_ITS ---
Test Reason : CP Blood Pressure : / mmHG Vent. Rate : 133 BPM Atrial Rate : 000 BPM P-R Int : 000 ms QRS Dur : 074 ms QT Int : 304 ms P-R-T Axes : 000 -04 -06 degrees QTc Int : 452 ms Supraventricular tachycardia Nonspecific ST abnormality Abnormal ECG Confirmed by NIXON SANDERS, ILYA ([id number]), editorial specialist JEROME OROZCO ([id number]) on 02/13/2023 9:56:48 AM Referred By: PILAR Confirmed By:ILYA ALICEA MD
--- NOTE | 2023-02-12 08:32 | RAD_ITS ---
STUDY: X-RAY CHEST REASON FOR EXAM: Female, 68 years old. Pain and shortness of breath TECHNIQUE: Single AP portable view of the chest. COMPARISON: Comparison is made with prior study dated August 15, 2022. FINDINGS: EKG electrodes are seen. The lungs are clear and expanded. There is no demonstrated pleural abnormality. There is mild cardiac enlargement. Normal mediastinum and alina. Normal visualized pulmonary arteries. There is atherosclerotic tortuosity of the aortic arch and descending thoracic aorta. There are degenerative changes of the visualized thoracic spine. Intramedullary inessa is seen in the right humerus. There is no demonstrated abnormality of the visualized soft tissue structures of the upper abdomen. RAD/Chest 1 View (Portable) IMPRESSION: Mild cardiomegaly. The lungs are clear. Electronically Signed: Tico Hanley MD at 8:44 EDT ,
[2023-02-12 08:37] LABS: Absolute Lymphocyte Count 2.57 X10^3/uL (0.83-4.51); Absolute Neutrophil Count 2.7 X10^3/uL (2.0-7.7); Basophil# 0.04 X10^3/uL; Basophil% 0.7 % (0-1); Eosinophil# 0.17 X10^3/uL; Eosinophils% 2.8 % (0-5); Lymphocyte # 2.57 X10^3/ul (0.83-4.51); Mean Corp Hgb Conc 31.4 g/dL (32-36); Mean Corpuscular Hgb 26.8 pg (27.0-32.0); Mean Corpuscular Volume 85.2 fL (81-99); Mean Platelet Vol. 9.3 fl (6.2-12.0); Monocyte# 0.59 X10^3/uL; Monocyte% 9.6 % (0-10); NRBC Flagged by Analyzer 0 % (0-5); Neutrophil # 2.74 X10^3/uL (2.7-7.7); Neutrophil % 44.7 % (47-70); Platelet Count 319 K/mm3 (150-450); RBC Distribution Width CV 13.4 % (11.6-14.6); RBC Distribution Width SD 41.7 fl (35.1-43.9); Red Blood Count 4.11 M/mm3 (4.2-5.4); White Blood Count 6.1 K/mm3 (4.4-11.0)
[2023-02-12 08:50] LABS: Anion Gap 7 (5-15); BUN 10 mg/dL (7-18); BUN/Creat Ratio 7.6 RATIO (10-20); Calcium,Total 8.7 mg/dL (8.5-10.1); Chloride 108 mmol/L (98-107); Creatinine, Serum 1.31 mg/dL (0.55-1.02); EST Glomerular Filtration Rate 43 mL/min (>60); Est Glom Filt Rate - Afr Amer 52 mL/min (>60); Estimated Creatinine Clearance 32.06 ml/min; Glucose 113 mg/dL (74-106); Potassium 3.7 mmol/L (3.5-5.1); Sodium Level 140 mmol/L (136-145); Troponin-I HS 10 pg/mL (3.0-54.0)
[2023-02-12 10:08] VITALS: BP 152/98; PULSE 76; RESP 19; O2SAT 97
--- NOTE | 2023-02-12 10:39 | ED.VIS.CHEST ---
HPI History of Present Illness Chief Complaint: Chest Pain Detail of Chief Complaint: Chest pain and palpitations Informant: patient Onset/Context/Timing Onset: Hours Activity at onset: sudden Timing: Continuous Quality: Positive for Aching Location: Substernal Current Severity: Mild Maximum Severity: Moderate Worsened By: Nothing Relieved By: Nothing Associated Symptoms: Positive for Nausea, Dyspnea and Lightheadedness; Negative for Vomiting, Diaphoresis, Cough, Fever, Acid Reflux or Palpitations Narrative Narrative: Patient is a 68-year-old woman with history of paroxysmal atrial fibrillation and history of atrial flutter, obstructive sleep apnea, hypertension and prior PE and DVT. She is not on anticoagulant therapy because she was found to have a cerebral aneurysm that required coiling. Patient denies leg pain, swelling discoloration. Patient denies orthopnea or PND. Patient denies fever, chills night sweats. Patient denies double vision, blurred vision or loss of vision. Patient denies trouble with speech or swallowing. Patient denies jaw pain, shoulder pain or back pain. Patient denies vomiting or diarrhea. Patient denies black or maroon-colored stool. Patient denies urinary symptoms. Prior Similar Symptoms: Yes Recent Illness/Hospitalization: No CVD Risk Factors: Positive for Hypertension, Diabetes and Hypercholesterolemia; Negative for Smoking PE Risk Factors: Positive for Prior DVT or PE; Negative for Recent Travel/Surgery, Recent Immobilization, Cancer or OCP + Smoking + >/=35 TAD Risk Factors: Positive for Hypertension; Negative for Marfan's Syndrome or Family History [facility] Medical History Anxiety and depression Contact with or suspected exposure to other viral communicable disease Contusion of left elbow, initial encounter Encounter for screening for COVID-19 Essential hypertension History of DVT (deep vein thrombosis) History of pulmonary embolism History of stroke Hyperlipidemia RUTH (obstructive sleep apnea) Paroxysmal atrial fibrillation Paroxysmal atrial flutter Type 2 diabetes mellitus Urinary tract infection Home Medications amlodipine 5 mg tablet 10 mg PO DAILY BLOOD PRESSURE 10/10/15 [History Last Taken 02/12/23] albuterol sulfate 90 mcg/actuation aerosol inhaler 2 puff inhalation Q4H PRN shortness of breath or wheezing 02/12/23 [History Last Taken 02/11/23] ferrous sulfate 325 mg (65 mg iron) tablet (Feosol) 325 mg PO DAILY supplement 02/12/23 [History Last Taken 02/12/23] gabapentin 800 mg tablet 800 mg PO DAILY nerve pain 02/12/23 [History Last Taken 02/11/23] Allergy/AdvReac Type Severity Reaction Status Date / Time lisinopril Allergy Unknown Unknown Verified 02/12/23 08:11 latex Allergy Rash Verified 02/12/23 08:11 oxycodone [Oxycodone] AdvReac Itching Verified 02/12/23 08:11 Family History Mother Diabetes Cancer Myocardial infarction Hypertension Father Myocardial infarction Heart disease Hypertension Brother Cancer Hypertension Sister Bipolar disorder Schizophrenia Hypertension Surgical History History of appendectomy History of carpal tunnel release History of cerebral aneurysm repair (~2012) History of cholecystectomy History of hysterectomy History of shoulder surgery History of total knee replacement Social History Smoking Status: Never smoker alcohol intake: never substance use type: does not use caffeine: Yes Type: carbonated beverages Number of servings: 1 ROS ROS ED Constitutional Constitutional ED: Denies chills, fever(s), subjective, sweats or weight loss Eyes Eyes: Reports none; Denies blurry vision, change in vision or diplopia ENT ENT ED: Denies ear pain, rhinorrhea or sore throat Cardiovascular Cardiovascular: Reports as per HPI, palpitations and racing heartbeat; Denies orthopnea or paroxysmal nocturnal dyspnea Respiratory/Chest Respiratory/Chest: Reports dyspnea; Denies cough, dyspnea on exertion, orthopnea or paroxysmal nocturnal dyspnea Gastrointestinal Gastrointestinal: Denies abdominal pain, diarrhea, melena or vomiting Genitourinary Genitourinary ED: Denies dysuria, hematuria or urinary frequency Musculoskeletal Musculoskeletal: Denies arthralgias, back pain, myalgias or neck pain Neurologic Neurologic: Reports headache(s); Denies paresthesias or weakness Psychiatric Psychiatric: Reports anxiety Endocrine Endocrinology: Denies cold intolerance or heat intolerance Hematologic/Lymphatic Hematologic/Lymphatic: Denies easy bleeding or easy bruising EXAM Physical Exam Const Vital Signs: 02/12/23 08:08 02/12/23 08:08 02/12/23 08:13 Temperature 97.2 F L Temperature Source Temporal Pulse Rate 142 H Respiratory Rate 18 Blood Pressure 121/80 H Blood Pressure Mean 93 Pulse Ox 99 Oxygen Delivery Method Room Air 02/12/23 10:08 Temperature Temperature Source Pulse Rate 76 Respiratory Rate 19 H Blood Pressure 152/98 H Blood Pressure Mean 116 Pulse Ox 97 Oxygen Delivery Method Room Air Positive well nourished and well developed General Appearance ED: well developed and NAD; Negative for pallor HEENT Reports TM's clear and moist mucous membranes normocephalic and atraumatic Tympanic Membrane ED: Yes TM's clear Eyes PERRL and EOMs intact bilaterally General Eye ED: Negative for pale conjunctiva or scleral icterus Neck no lymphadenopathy, supple and no JVD Neck Narrative: Trachea is midline. Chest Wall inspection of chest normal and palpation of chest normal Resp normal respiratory effort and clear to auscultation bilaterally Cardio regular rhythm, S1 normal heart sound, S2 normal heart sound and no murmurs Rate: tachycardic GI normal to inspection, nondistended, normoactive bowel sounds, soft to palpation, non-distended and no masses; Negative for hepatosplenomegaly Back/Spine no CVA tenderness and no thoracic nor lumbar tenderness Extremity normal to inspection Extremity Narrative: There is no asymmetry, swelling, discoloration, leg vein distention, palpable cords or tenderness along the distribution of the deep venous system. General Extremety ED: Negative for edema or pulses abnormal General Extremity: Negative for edema or pulses abnormal Neuro oriented x3, CN's II-XII intact bilaterally and no sensory deficits noted Sensorium / Orientation: awake and alert Motor Exam: strength 5/5 throughout Psych Mood & Affect: anxious Skin no rashes or lesions noted and no wounds General Skin Exam: Negative for jaundice, pallor or other MDM MDM MDM Narrative Medical decision making narrative: Monitor reveals a narrow complex tachycardia. Suspect atrial flutter. In light of patient's risk factors past history EKG, chest x-ray and appropriate blood work was obtained. EKG to rule out ischemia and determine rhythm. Chest x-ray to evaluate for CHF. CBC to assess H&H. BMP to assess electrolyte panel and renal function opponent and 2-hour troponin to evaluate for cardiac ischemia. 2-hour troponin is 13 with a delta of 3. These are both normal. Will discharge to home per discussion with Dr. Broderick. History & Record Review Discussion w/independent historian: Patient Lab Data Attestation: I reviewed the patient's lab results. Lab results narrative: CBC reveals anemia with normal indices. BMP is remarkable for a creatinine of 1.31 with a GFR of 52. Glucose is slightly evaded 113 with a normal CO2 anion gap. First troponin is normal at 10. Labs: Laboratory Results - last 24 hr 02/12/23 02/12/23 08:25 11:00 WBC 6.1 RBC 4.11 L Hgb 11.0 L Hct 35.0 L MCV 85.2 MCH 26.8 L MCHC 31.4 L RDW Std Deviation 41.7 RDW Coeff of Amandeep 13.4 Plt Count 319 MPV 9.3 Immature Gran % (Auto) 0.200 Neut % (Auto) 44.7 L Lymph % (Auto) 42.0 H [place] % (Auto) 9.6 Eos % (Auto) 2.8 Baso % (Auto) 0.7 Absolute Neuts (auto) 2.7 Absolute Lymphs (auto) 2.57 Nucleated RBC % 0 Sodium 140 Potassium 3.7 Chloride 108 H Carbon Dioxide 25.0 Anion Gap 7 BUN 10 Creatinine 1.31 H Estim Creat Clear Calc 32.06 Est GFR (MDRD) Af Amer 52 L Est GFR (MDRD) Non-Af 43 L BUN/Creatinine Ratio 7.6 L Glucose 113 H Calcium 8.7 Troponin I High Sens 10 13 Radiography Chest X-Ray - ED: 1 View and Read by ED Physician (View portable chest x-ray reveals mild cardiomegaly. Limited in-store volume. There is no obvious effusion or infiltrate noted. Osseous structures are unremarkable. This was independently reviewed interpreted by me.) Diagnostic Testing: Clinical Impression(s) from Imaging Studies Chest X-Ray 02/12/23 08:32 IMPRESSION: Mild cardiomegaly. The lungs are clear. Electronically Signed: Tico Hanley MD at 8:44 EDT , Management Discussion w/another healthcare provider: Farmer Cash Grain (Paged Dr. Broderick. Was made aware of patient presentation. Plan is to call office for follow-up in the next week.) Treatment and Re-Evaluation :: Patient and were informed of laboratory results and need for repeat troponin. We will contact her track dresser Dr. Sauceda after second troponin. EKG in my opinion reveals atrial flutter with a 2-1 block. In light of her heart rate of 143 and now 73 with a normal rhythm suspect that she was in atrial flutter with a 2-1 block. She converted spontaneously. She informed she is not a candidate for anticoagulation because of the coiled cerebral aneurysm. Patient is complaining of headache and chest pain at this time. 4 mg of morphine was ordered. Discharge Plan Triage Chief Complaint: Chest Pain ED Provider: Galileo Fisher Dx/Rx/DC Orders Clinical Impression: Atrial flutter, paroxysmal, Essential hypertension, RUTH (obstructive sleep apnea), History of cerebral aneurysm repair, Chest pain, Acute dyspnea Instructions: ED Atrial Flutter Prescriptions: No Action amlodipine 5 MG tablet 10 mg PO DAILY gabapentin 800 mg tablet 800 mg PO DAILY ferrous sulfate [Feosol] 325 mg (65 mg iron) tablet 325 mg PO DAILY Patient Comments: PT GETS OTC IRON SUPPLEMENT AND TAKES ONE TABLET/CAPSULE ONCE DAILY albuterol sulfate 90 mcg/actuation HFA aerosol inhaler 2 puff INHALATION Q4H PRN (Reason: shortness of breath or wheezing) Primary Care Provider: Marquez Garcia Chi Referrals: Alfonzo Broderick MD [Med Staff - Active Staff] - As soon as possible Marquez Garcia Chi, MD [Primary Care Provider] - Activity Restrictions/Additional Instructions: For appointment to be seen within the next 5 to 7 days. Disposition Disposition: Home, Self Care
[2023-02-12] MEDS: Morphine 4 MG/ML Syringe IV (10:46)
[2023-02-12 11:21] LABS: Troponin-I HS 13 pg/mL (3.0-54.0)
== END 2023-02-12 12:56 | disposition home or self-care (01) ==
PROVIDERS: Emergency Provider Emergency Medicine; PCP Family Medicine Geriatric Medicine; Visit Provider Emergency Medicine
DX: I48.92 Unspecified atrial flutter (principal); I48.0 Paroxysmal atrial fibrillation; I10 Essential (primary) hypertension; G47.33 Obstructive sleep apnea (adult) (pediatric); Z79.899 Other long term (current) drug therapy; Z86.79 Personal history of other diseases of the circulatory system; Z86.711 Personal history of pulmonary embolism; Z86.718 Personal history of other venous thrombosis and embolism; Z86.73 Personal history of transient ischemic attack (TIA), and cerebral infarction without residual deficits
CPT/HCPCS: 71045; 80048; 84484; 85025; 93005; 96374; 99282; A4216

== ENCOUNTER → 2023-03-30 | Outpatient (CLI) | payer MEDICARE, SELFPAY ==
--- NOTE | 2023-03-30 11:08 | RAD_ITS ---
STUDY: X-RAY CHEST REASON FOR EXAM: Female, 68 years old. Cough, fatigue TECHNIQUE: PA and lateral views of the chest. COMPARISON: Comparison is made with prior study dated February 12, 2023. FINDINGS: The lungs are clear and expanded. There is no demonstrated pleural abnormality. There is borderline cardiomegaly. Normal mediastinum and alina. Normal visualized pulmonary arteries. There is atherosclerotic tortuosity of the aortic arch and descending thoracic aorta. There are degenerative changes of the visualized thoracic spine. Prior intramedullary inessa fixation of the right humerus. There is no demonstrated abnormality of the visualized soft tissue structures of the upper abdomen. RAD/Chest PA and Lateral IMPRESSION: No acute abnormality is seen. Electronically Signed: Tico Hanley MD at 12:23 EDT ,
== END | disposition home or self-care (01) ==
PROVIDERS: Referring Provider Physician Assistant; Visit Provider Physician Assistant
DX: R05.9 Cough, unspecified (principal); R53.83 Other fatigue
CPT/HCPCS: 71046

== ENCOUNTER 2023-09-19 10:51 | Emergency (ER) | payer BC, MEDICARE, SELFPAY ==
[2023-09-19 10:52] VITALS: BP 148/117; PULSE 95; RESP 20; TEMP 35.8; O2SAT 100; BMI 43.5
--- NOTE | 2023-09-19 11:02 | RAD_ITS ---
HISTORY: injury. TECHNIQUE: XR Knee Complete 4 Views or More. COMPARISON: 07/01/2022. FINDINGS: BONES : No acute fracture identified. Mild degenerative sclerosis and osteophytes of the medial compartment. JOINTS: No dislocation. Moderate-severe medial compartment joint space narrowing and mild lateral compartment joint space narrowing again seen. RAD/Knee 4 or More Views IMPRESSION: No acute fracture or dislocation identified in the left knee. Electronically Signed: Chaparrita Gaytan MD at 11:35 EST ,
--- NOTE | 2023-09-19 11:02 | EDS_ITS ---
HPI History of Present Illness Chief Complaint: Lower Extremity Injury Detail of Chief Complaint: Left knee injury Informant: patient Occured/Mechanism Mechanism/Context: Yes fall Onset/Context/Timing Onset: Weeks (3 weeks ago) Narrative Narrative: Patient presents secondary to continued left knee pain after a fall 3 weeks ago. She fell striking the anterior knee. She complains of focal pain to this area. She states if she does not get up and walk every 2 hours it gets very stiff. At night she feels like it goes numb. She called her orthopedic doctor and [place] to be seen but cannot get an appointment until October. [facility] Medical History Acute bronchitis, unspecified Acute sinusitis, unspecified Anxiety and depression Contact with or suspected exposure to other viral communicable disease Contusion of left elbow, initial encounter Encounter for screening for COVID-19 Essential hypertension History of DVT (deep vein thrombosis) History of pulmonary embolism History of stroke Hyperlipidemia RUTH (obstructive sleep apnea) Paroxysmal atrial fibrillation Paroxysmal atrial flutter Type 2 diabetes mellitus Urinary tract infection Home Medications amlodipine 5 mg tablet 10 mg PO DAILY BLOOD PRESSURE 10/10/15 [History Last Taken 02/12/23] albuterol sulfate 90 mcg/actuation aerosol inhaler 2 puff inhalation Q4H PRN shortness of breath or wheezing 02/12/23 [History Last Taken 02/11/23] gabapentin 800 mg tablet 800 mg PO DAILY nerve pain 02/12/23 [History Last Taken 02/11/23] atorvastatin 10 mg tablet (Lipitor) 10 mg PO QHS 03/17/23 [History Last Taken Unknown] levofloxacin 500 mg tablet 500 mg PO DAILY #10 tabs 03/30/23 [Rx Last Taken Unknown] amoxicillin 875 mg-potassium clavulanate 125 mg tablet 1 tab PO BID #20 tabs 08/24/23 [Rx Last Taken Unknown] hydrocodone-acetaminophen 5-325mg 5mg-325mg 1 tab PO Q6H PRN PRN Pain 3 days #10 TABLETS 09/19/23 [Rx Last Taken Unknown] Allergy/AdvReac Type Severity Reaction Status Date / Time lisinopril Allergy Unknown Unknown Verified 09/19/23 10:53 latex Allergy Rash Verified 09/19/23 10:53 oxycodone [Oxycodone] AdvReac Itching Verified 09/19/23 10:53 Family History Mother Diabetes Cancer Myocardial infarction Hypertension Father Myocardial infarction Heart disease Hypertension Brother Cancer Hypertension Sister Bipolar disorder Schizophrenia Hypertension Surgical History History of appendectomy History of carpal tunnel release History of cerebral aneurysm repair (~2012) History of cholecystectomy History of hysterectomy History of shoulder surgery History of total knee replacement Social History Smoking Status: Never smoker alcohol intake: never substance use type: does not use caffeine: Yes Type: carbonated beverages Number of servings: 1 ROS ROS ED Constitutional Constitutional ED: Denies chills or fever(s) ENT ENT ED: Denies rhinorrhea or sore throat Cardiovascular Cardiovascular: Denies chest pain Respiratory/Chest Respiratory/Chest: Denies cough or dyspnea Gastrointestinal Gastrointestinal: Denies abdominal pain, nausea or vomiting Musculoskeletal Musculoskeletal: Reports extremity pain; Denies back pain Integumentary Denies Abrasions or rash Neurologic Neurologic: Reports paresthesias; Denies headache(s) or weakness Psychiatric Psychiatric: Denies anxiety or depression Allergic/Immunologic Allergic/Immunologic ED: Denies lip swelling or urticaria EXAM Physical Exam Const Vital Signs: 09/19/23 10:52 Temperature 96.4 F L Temperature Source Temporal Pulse Rate 95 Respiratory Rate 20 H Blood Pressure 148/117 H Blood Pressure Mean 127 Pulse Ox 100 Oxygen Delivery Method Room Air Positive well nourished and well developed General Appearance ED: well developed HEENT Reports moist mucous membranes Eyes PERRL Chest Wall inspection of chest normal and palpation of chest normal Resp normal respiratory effort and clear to auscultation bilaterally Cardio regular rate and regular rhythm GI non-tender Extremity Extremity Narrative: Mild tenderness to palpation of the anterior right knee. No significant edema. No ecchymosis, abrasions, erythema. Good range of motion at the knee. No calf tenderness or edema. Psych mental status grossly normal Skin no wounds MDM MDM MDM Narrative Medical decision making narrative: Left knee x-rays to be obtained to evaluate for potential bony injury. Differen tial diagnosis includes contusion, sprain, strain. Patient also has a history of prior DVT PE. She is not currently on anticoagulation because of a history of a cerebral aneurysm with bleed. She stuart s not have any significant leg edema or signs of DVT at this time. Radiography Diagnostic Testing: Clinical Impression(s) from Imaging Studies Knee X-Ray 09/19/23 11:02 IMPRESSION: No acute fracture or dislocation identified in the left knee. Electronically Signed: Chaparrita Gaytan MD at 11:35 EST , Treatment and Re-Evaluation Narrative: Left knee x-rays from interpretation reveal no evidence of acute bony injury. Chronic arthritic changes are noted. Radiology interpretation reviewed and agrees. Angelo wrap will be applied to the left knee. She has tried Tylenol and ibuprofen without improvement. I will write her a short course of [place]. She will follow-up with her orthopedic physician as scheduled. Discharge Plan Triage Chief Complaint: Lower Extremity Injury ED Provider: Jenelle Luis Dx/Rx/DC Orders Clinical Impression: Contusion of left knee Instructions: ED Contusion, Lower Extremity Prescriptions: New hydrocodone-acetaminophen 5-325 mg tablet 1 tab PO Q6H PRN PRN (Reason: Pain) 3 Days Qty: 10 0RF No Action atorvastatin [Lipitor] 10 mg tablet 10 mg PO QHS levofloxacin 500 mg tablet 500 mg PO DAILY Qty: 10 0RF amoxicillin-pot clavulanate 875-125 mg tablet 1 tab PO BID Qty: 20 0RF amlodipine 5 MG tablet 10 mg PO DAILY gabapentin 800 mg tablet 800 mg PO DAILY albuterol sulfate 90 mcg/actuation HFA aerosol inhaler 2 puff INHALATION Q4H PRN (Reason: shortness of breath or wheezing) Primary Care Provider: Care Physician,No Primary Referrals: Care Physician,No Primary [Primary Care Provider] - Activity Restrictions/Additional Instructions: Please follow-up with your orthopedic surgeon as scheduled. You can follow-up with your primary care physician in the meantime.
--- OUTSIDE RECORDS SUMMARY | 2023-09-19 11:11 | XMS RPT_ITS | CCD ---
Author Name Unknown Address [address] [place] [address] Organization [facility] Care Team Providers Care Rn Clinical Resource Name Role Phone Avelina Jarvis PA-C Unavailable Agusto Elliott DO Primary Care Provider GABBY SANDERS, DR NEAL Primary Care Physician GABBY SANDERS., DR. NEAL Primary Care Unavailbenjamin HEATON DO, DR. KORI Hampton Attending Unavailab sally PIERRE MD., DR. NEAL Primary Care UnavailCONNOR Nolen DO Attending Unavailable GABBY SANDERS., DR. NEAL Primary Care Unavailbenjamin PALENCIA MD, INDIRA Haney Attending Unavail able Agusto Elliott DO Primary Care Provider [phone] NANCY AMARAL Attending Unavailable Monika CHÁVEZ.Moises KAY Primary Care Provider KATI FAGAN Referring Unavailable MOISES MALCOLM Primary Care Unavailable KATI FAGAN Attending Unavailable MOISES MALCOLM Primary Care Unavailable MOISES MALCOLM Attending Unavailable MOISES MALCOLM Primary Care Unavailable MOISES MALCOLM Referring Unavailable MOISES MALCOLM Primary Care Unavailable Allergies Allergy Classification Reported Allergen(s) Allergy Type Date of Onset Reaction(s) Facility (1 source) Acetaminophen / oxyCODONE Drug Allergy 0 [facility] Work Phone: (9 sources) Latex; Translations: [LATEX] allergy to substance 2 Rash [facility] Work Phone: (3 sources) Lisinopril; Translations: [LISINOPRIL] Drug Allergy 9 [facility] Work Phone: (10 sources) Acetaminophen / oxyCODONE; Translations: [acetaminophen-ox ycodone] Drug Allergy 9 Itching [facility] Work Phone: Medications Current Medications Medication Drug Class(es) Dates Sig (Normalized) Sig (Original) acetaminophen 325 mg oral capsule (2 sources) Start: 04-07-2019 take 1 capsule by mouth four times daily as needed for pain Tylenol 325 mg oral capsule Dose : 650 mg =, Oral, QID, PRN as needed for pain, 0 Refill(s) Start Date: 04/07/19 Status: Ordered [id number] 200 actuat albuterol 0.09 mg/actuat metered dose inhaler (5 sources) beta2-Adrenergic Agonist Start: 07-02-2022 take 2 puff(s) by mouth every four hours albuterol 108 (90 Base) MCG/ACT inhaler INHALE 2 PUFFS BY MOUTH EVERY 4 HOURS 0 07/02/2022 Active Completed/Discontinued Medications Medication Drug Class(es) Dates Sig (Normalized) Sig (Original) amLODIPine 5 mg oral tablet (8 sources) Dihydropyridine Calcium Channel Anjelica Start: 03-11-2023 amLODIPine (NORVASC) 5 mg tablet Problems Active Problems Problem Classification Problem Date Documented Da te Episodic/Chronic Acute cerebrovascular disease (3 sources) Cerebrovascular accident; Translations: [Cerebral infarction, unspecified] Onset: 10-20-2018 10-20-2018 Chronic Acute myocardial infarction (2 sources) Myocardial infarction 06-06-2020 Chronic Anxiety disorders (5 sources) Anxiety; Translations: [Anxiety disorder, unspecified] Onset: 10-20-2018 10-20-2018 Chronic Asthma (7 sources) Asthma; Translations: [Unspecified asthma, uncomplicated] Onset: 10-20-2018 10-20-2018 Chronic Cardiac dysrhythmias (6 sources) Atrial fibrillation; Translations: [Unspecified atrial fibrillation] Onset: 04-16-2023 04-26-2018 Chronic Diabetes mellitus without complication (3 sources) Type 2 diabetes mellitus without complication; Translations: [Type 2 diabetes mellitus without complications] Onset: 10-20-2018 10-20-2018 Chronic Disorders of lipid metabolism (7 sources) Hyperlipidemia; Translations: [Hyperlipidemia, unspecified] Onset: 02-25-2013 10-20-2018 Chronic Esophageal disorders (2 sources) Gastro-esophageal reflux disease without esophagitis; Translations: [Gastro-esophageal reflux disease without esophagitis] Onset: 07-28-2022 Chronic Essential hypertension (13 sources) Benign essential hypertension; Translations: [Essential (primary) hypertension] Onset: 10-21-2012 10-21-2012 Chronic Genitourinary symptoms and ill-defined conditions (3 sources) Urinary incontinence; Translations: [Unspecified urinary incontinence] Onset: 10-04-2015 10-04-2015 Chronic Menopausal disorders (3 sources) Menopausal syndrome; Translations: [Menopausal and female climacteric states] Onset: 03-23-2012 03-23-2012 Chronic Mood disorders (2 sources) Depressive disorder 06-06-2020 Chronic Nutritional deficiencies (2 sources) Vitamin D deficiency; Translations: [Vitamin D deficiency, unspecified] Onset: 04-16-2023 04-16-2023 Chronic Open wounds of extremities (1 source) Laceration of finger without foreign body; Translations: [Laceration without foreign body of unspecified finger without damage to nail, initial encounter] Onset: 02-13-2022 Episodic Osteoarthritis (6 sources) Arthritis of right knee; Translations: [Unilateral primary osteoarthritis, right knee] Onset: 05-21-2013 05-21-2013 Chronic Osteoarthritis (1 source) Osteoarthritis of joint of left shoulder region; Translations: [Primary osteoarthritis, left shoulder] Onset: 09-24-2019 09-24-2019 Other and ill-defined cerebrovascular disease (3 sources) Intracranial aneurysm; Translations: [Cerebral aneurysm, nonruptured] Onset: 10-20-2018 10-20-2018 Chronic Other connective tissue disease (3 sources) History of total knee arthroplasty; Translations: [Presence of unspecified artificial knee joint] Onset: 10-27-2018 10-28-2018 Chronic Other connective tissue disease (1 source) Spasm; Translations: [Cramp and spasm] Onset: 02-20-2022 Episodic Other connective tissue disease (1 source) Calcaneal spur of right foot; Translations: [Calcaneal spur, right foot] 05-29-2023 Episodic Other connective tissue disease (1 source) Calcaneal spur, right foot; Translations: [Heel spur, right] Onset: 05-29-2023 Episodic Other gastrointestinal disorders (1 source) Incontinence of feces; Translations: [Full incontinence of feces] 04-16-2023 Episodic Other nervous system disorders (3 sources) Peripheral nerve disease ; Translations: [Polyneuropathy, unspecified] Onset: 10-20-2018 10-20-2018 Chronic Other nutritional; endocrine; and metabolic disorders (6 sources) Morbid obesity; Translations: [Morbid (severe) obesity due to excess calories] Onset: 10-20-2018 10-20-2018 Chronic Other nutritional; endocrine; and metabolic disorders (3 sources) Morbid (severe) obesity due to excess calories; Translations: [Morbid (severe) obesity due to excess calories (HCC)] Onset: 10-20-2018 Chronic Other nutritional; endocrine; and metabolic disorders (2 sources) Body mass index (BMI) 45.0-49.9, adult; Translations: [Body mass index (BMI) 45.0-49.9, adult (HCC)] Onset: 07-28-2022 Chronic Other nutritional; endocrine; and metabolic disorders (1 source) H/O: diabetes mellitus; Translations: [Personal history of other endocrine, nutritional and metabolic disease] 04-16-2023 Episodic Residual codes; unclassified (5 sources) Obstructive sleep apnea syndrome; Translations: [Obstructive sleep apnea (adult) (pediatric)] Onset: 10-20-2018 10-20-2018 Chronic Syncope (2 sources) Syncope 06-06-2020 Episodic Past or Other Problems Problem Classification Problem Date Documented Date Episodic/Chronic Acute and unspecified renal failure (3 sources) Acute injury of kidney; Translations: [Acute kidney failure, unspecified] Onset: 10-20-2018 10-20-2018 Episodic Deficiency and other anemia (3 sources) Anemia; Translations: [Anemia, unspecified] Onset: 10-20-2018 10-20-2018 Episodic Genitourinary symptoms and ill-defined conditions (3 sources) Lower urinary tract symptoms; Translations: [Unspecified symptoms and signs involving the genitourinary system] Onset: 10-04-2015 10-04-2015 Episodic Immunizations and screening for infectious disease (6 sources) Patient encounter status; Translations: [Encounter for immunization] Onset: 04-16-2023 04-16-2023 Episodic Nonspecific chest pain (5 sources) Chest pain; Translations: [Chest pain, unspecified] Onset: 10-20-2018 10-20-2018 Episodic Results Test Name Value Interpretation Reference Range Facil ity Vital Signs Date Time Vital Sign Value Performing Clinician Facility 04-16-2023 08:34-0400 Body height 158.1 cm Moises Malcolm FORMULATOR.AMR PHYSICIAN Work Phone: [facility] 04-16-2023 08:34-0400 Body temperature 97.81 [degF] Moises Malcolm FORMULATOR.AMR PHYSICIAN Work Phone: [facility] 04-16-2023 08:34-0400 Body weight 112.04 kg Moises Malcolm FORMULATOR.AMR PHYSICIAN Work Phone: [facility] 04-16-2023 08:34-0400 Diastolic blood pressure 78 mm[Hg] Moises Malcolm FORMULATOR.AMR PHYSICIAN Work Phone: [facility] 04-16-2023 08:34-0400 Heart rate 73 /min Moises Malcolm FORMULATOR.AMR PHYSICIAN Work Phone: [facility] 04-16-2023 08:34-0400 Respiratory rate 18 /min Moises Malcolm FORMULATOR.AMR PHYSICIAN Work Phone: [facility] 04-16-2023 08:34-0400 SaO2% (BldA) [Mass fraction] 98 % Moises Malcolm FORMULATOR.AMR PHYSICIAN Work Phone: [facility] 04-16-2023 08:34-0400 Systolic blood pressure 128 mm[Hg] Moises Goodeel FORMULATOR.AMR PHYSICIAN Work Phone: [facility] 02-20-2022 12:07-0400 Diastolic blood pressure 80 mm[Hg] INDIRA PALENCIA MD [facility] 02-20-2022 12:07-0400 Heart rate 86 /min INDIRA PALENCIA MD [facility] 02-20-2022 12:07-0400 Respiratory rate 16 /min INDIRA PALENCIA MD [facility] 02-20-2022 12:07-0400 Systolic blood pressure 170 mm[Hg] INDIRA PALENCIA MD [facility] 02-20-2022 10:25-0400 Body height 157 cm INDIRA PALENCIA MD [facility] 02-20-2022 10:25-0400 Body temperature 98.42 [degF] INDIRA PALENCIA MD [facility] 02-20-2022 10:25-0400 Body weight 111.3 kg INDIRA PALENCIA MD [facility] 02-20-2022 10:25-0400 Diastolic blood pressure 73 mm[Hg] INDIRA PALENCIA MD [facility] 02-20-2022 10:25-0400 Heart rate 70 /min INDIRA PALENCIA MD [facility] 02-20-2022 10:25-0400 Respiratory rate 16 /min INDIRA PALENCIA MD [facility] 02-20-2022 10:25-0400 Systolic blood pressure 136 mm[Hg] INDIRA PALENCIA MD [facility] 02-13-2022 10:10-0400 Body temperature 98.42 [degF] DR KORI HEATON DO [facility] 02-13-2022 10:10-0400 Body weight 111.[address] KORI HEATON DO [facility] 02-13-2022 10:10-0400 Diastolic blood pressure 78 mm[Hg] DR KORI HEATON DO [facility] 02-13-2022 10:10-0400 Heart rate 67 /min DR KORI HEATON DO [facility] 02-13-2022 10:10-0400 Respiratory rate 16 /min DR KORI HEATON DO [facility] 02-13-2022 10:10-0400 Systolic blood pressure 151 mm[Hg] DR KORI HEATON DO [facility] NEGATED: Highlighted [id number] 09:05-0400 BMI (Body Mass Index) 42.95 kg/m2 Hina Lily AT [facility] Work Phone: NEGATED: Highlighted [id number] 09:05-0400 Body weight 106 kg Hina Bautista AT [facility] Work Phone: NEGATED: Highlighted [id number] 09:05-0400 Body weight 106.14 kg Hina Bautista AT [facility] Work Phone: NEGATED: Highlighted [id number] 09:05-0400 BP Diastolic 100 mm[Hg] Hina Lily AT [facility] Work Phone: NEGATED: Highlighted [id number] 09:05-0400 BP Diastolic 103 mm[Hg] Hina Lily AT [facility] Work Phone: NEGATED: Highlighted [id number] 09:05-0400 BP Systolic 199 mm[Hg] Hina Lily AT [facility] Work Phone: NEGATED: Highlighted [id number] 09:05-0400 BP Systolic 180 mm[Hg] Hina Bautista AT [facility] Work Phone: NEGATED: Highlighted [id number] 09:05-0400 Height 157 cm Hina Bautista AT [facility] Work Phone: NEGATED: Highlighted [id number] 09:05-0400 Height 157.48 cm Hina Bautista AT [facility] Work Phone: NEGATED: Highlighted [id number] 09:05-0400 Pulse (Heart Rate) 72 /min Hina Bautista AT [facility] Work Phone: Encounters Encounter Date Encounter Type Care Provider Facility Start: 05-29-2023 End: 05-29-2023 ambulatory [facility] Facility:[facility] Start: 05-29-2023 End: 05-29-2023 Subsequent hospital visit by physician Xr [facility] Work Phone: Radiology Procedures Date Procedure Procedure Detail Performing Clinician Start: 04-16-2023 INFLUENZA VACCINE, P RSV FREE, AGE 65+ YR, HIGH DOSE, QUADRIVALENT (FLUZONE HIGH-DOSE) Moises Malcolm FORMULATOR.AMR PHYSICIAN Work Phone: Start: 09-18-2021 Mammography Nancy Pozsg ay DO Work Phone: Start: 09-24-2019 End: 09-24-2019 Blood pressure outside of normal parameters - follow-up not documented Avelina Jarvis PA-C Work Phone: Start: 09-24-2019 End: 09-24-2019 BMI documented as above normal parameters - follow-up documented Avelina Jarvis PA-C Work Phone: Start: 09-24-2019 End: 09-24-2019 Documentation of current medications Avelina Jarvis PA-C Work Phone: Start: 09-24-2019 End: 09-24-2019 Fall plan of care docd Avelina urias PA-C Work Phone: Start: 09-24-2019 End: 09-24-2019 Fall risk assessment docd Avelina CROCKER-C Work Phone: Start: 09-24-2019 End: 09-24-2019 Osteoarthritis assess Avelina CROCKER-C Work Phone: Start: 09-24-2019 End: 09-24-2019 Pain assessment documented as positive - follow-up documented Avelina CROCKER-C Work Phone: Start: 09-24-2019 End: 09-24-2019 Ptfalls assess-docd ge2>/yr Avelina CROCKER-C Work Phone: Start: 09-24-2019 End: 09-24-2019 Radex shoulder complete minimum 2 views Avelina CROCKER-C Work Phone: Start: 09-24-2019 End: 09-24-2019 Tobacco non-user Avelina Carrillo A-C Work Phone: Start: 05-28-2019 Mammography Nikki oliva Work Phone: Start: 07-13-[address] KORI HEATON DO Plan of Treatment Date Care Activity Detail Author Start: 04-04-2029 DTaP/Tdap/Td Vaccine s (3 - Td or Tdap) DTaP/Tdap/Td Vaccines (3 - Td or Tdap) [facility] Start: 04-04-2029 Urine microalbumin profile DTa P,Tdap,Td Vaccine (3 - Td or Tdap) [facility] Start: 05-03-2024 Hepatitis C antibody , confirmatory test Dilated Retinal Exam [facility] Immunizations Immunization Date Immunization Notes Care Provider Uriah dutton 04-16-2023 influenza (HD-IIV4) vaccine, age 65+ yr, high dose, quadrivalent, PF (FLUZONE HIGH-DOSE) Moises Malcolm APRN.AMR PHYSICIAN Work Phone: [facility] 04-16-2023 pneumococcal (PCV20) vaccine, 20 valent (PREVNAR 20) Moises Malcolm APRN.AMR PHYSICIAN Work Phone: [facility] 04-16-2023 pneumococcal Conjuga te, unspecified formulation Moises Malcolm APRN.[facility] Work Phone: [facility] Work Phone: 03-04-2021 influenza virus vaccine, unspecified formulation Nancy Amaral DO Work Phone: [facility] 04-04-2019 tetanus toxoid, redu tobin diphtheria toxoid, and acellular pertussis vaccine, adsorbed DR KORI HEATON DO [facility] 08-16-2012 tetanus toxoid, redu tobin diphtheria toxoid, and acellular pertussis vaccine, adsorbed Nikik Skelton Work Phone: [facility] Work Phone: Payers Date Payer Category Payer Medicare [id number] 2022 Medicare [id number] 2022 Unknown ANTHEM BLUE CROS S ANTHEM BLUE CROSS [id number] 2022-Present [address] [place] [address] Commercial [id number] 2022 Unknown [id number] 2022 Unknown [id number] 2021 Private Health Insurance [id number] 2018 Medicare HUMANA MEDICARE HUMANA GOLD PLUS [id number] 2018-Present [phone] [address] [address] [place] [address] O [id number] 1955 Unknown [id number] 1955 Unknown [id number] 1955 Unknown [id number] Social History Date Type Detail Facility Start: 02-20-2012 End: 10-20-2018 Tobacco smoking status NHIS Ex-smoker [facility] Work Phone: Start: 02-20-2012 End: 10-20-2018 Tobacco use and exposure Smokeless tobacco non-user [facility] Work Phone: Start: 07-15-2019 End: 05-29-2023 Alcohol intake Current non-drinker of alcohol (finding) [facility] Start: 10-20-2018 Tobacco Comment Smoked as a teenager [facility] Start: 1955 Sex Assigned At Not on file [facility] Start: 10-16-2020 End: 07-28-2022 Exposure to SARS-CoV-2 (event) Not sure [facility] Start: 11-20-2018 Tobacco smoking status Never smoked tobacco (finding) [facility] Start: 1955 Sex Assigned At Female [facility] History of tobacco use Current smoker [facility] History of tobacco use Cigarette Smoker [facility] Start: 07-28-2022 Alcohol intake Ex-drinker (finding) [facility] Start: 07-28-2022 Tobacco Comment Quit more than 20 years ago [facility] Start: 10-27-2018 End: 04-16-2023 History of Social function [facility] Start: 10-27-2018 End: 04-16-2023 Tobacco use panel [facility] PHQ2 Score 0 [facility] NEGATED: Highlighted rowStart: 09-24-2019 End: 09-24-2019 Alcohol use Alcohol use [facility] Work Phone: NEGATED: Highlighted rowStart: 09-24-2019 End: 09-24-2019 Details of drug misuse behavior Details of drug misuse behavior [facility] Work Phone: NEGATED: Highlighted rowStart: 09-24-2019 End: 09-24-2019 Assertion Never smoker [facility] Work Phone: Medical Equipment Procedure Code Equipment Code Equipment Origin al Text Equipment Identifier Dates Component 32mm Tritanium 10mm Patellar Asymmetric - [id number] Start: 10-27-2018 Insert Triathlon 4 X3 9mm Tibial Cruciate Retaining Knee - [id number] Start: 10-27-2018 Component Triath michael 4 Pa Femoral Cruciate Retain Bead Knee Right - [id number] Start: 10-27-2018 Baseplate Triath xander 4 Tritanium Tibial Coated Sterile Knee - [id number] Start: 10-27-2018 Functional Status Date Assessment Result Facility 02-20-2022 Functional Status Ambulation in [facility] Mental Status Date Assessment Result Facility 02-20-2022 Mental Status Orientation Oriented x 4 [facility] 02-13-2022 Mental Status Orientation Oriented x 4 [facility] Clinical Notes 05-21-2013 to 05-29-2023 Patient Mioses Baldwin, KYLER.AMR PHYSICIAN - 04/16/2023 8:51 AM EDTAddendum Note - Ladonna Hu LPN - 09/26/2022 8:12 AM EDTAddendum Note - Ladonna Hu LPN - 09/26/2022 8:12 AM EDT Note Date & Type Note Facility 05-29-2023 Note HNO ID: [id number] Author: Kati Fagan Service: ? Author Type: Physician Type: Progress Notes Filed: 05/29/2023 9:00 AM Note Text: Initial Podiatric Office Visit: Chief Complaint: This 68 year old female who presents with chief complaint:right heel pain HPI Patient presents to clinic for evaluation of right heel Complains of pain to the right heel, posterior aspect This has been present for nearly 3 months. She states the pain is severe and worse when wearing shoes She has treated with soaking which only provides minimal relief. PAIN EVALUATION 05/29/2023 0836 Pain Level: 8 Pain Location: Heel-Right Description: Throbbing Duration Amount of Time: 3 Duration Units: Months Frequency: Intermittent Intervention/Comfort measure: Reposition;Relaxation Hemoglobin A1C (%) Date Value 04/16/2023 6.5 06/01/2020 6.2 10/20/2018 6.0 10/01/2018 6.0 06/06/2013 5.9 02/26/2013 6.1 PCP: Moises Malcolm APRN.AMR PHYSICIAN PAST MEDICAL HISTORY Diagnosis Date Active asthma Anxiety Arthritis of knee, left 10/21/2012 Brain aneurysm Diabetes mellitus type 2, uncomplicated (HCC) Fibroids Hyperlipidemia LDL goal < 100 02/25/2013 Hypertension Morbidly obese ([facility]) 10/20/2018 RUTH (obstructive sleep apnea) 10/20/2018 Peripheral neuropathy 10/20/2018 Pulmonary embolism (HCC) 12/13/2012 Right shoulder injury 10/21/2012 Stroke ([facility]) Current Outpatient Medications Medication Sig ergocalciferol 50,000 unit capsule (VITAMIN D2, DRISDOL) Take 1 capsule by mouth one time a week. meclizine (ANTIVERT) 25 mg tab Take 25 mg by mouth. amLODIPine (NORVASC) 5 mg tablet carvedilol (COREG) 12.5 mg tablet 12.5 mg. gabapentin (NEURONTIN) 800 mg tablet Take 800 mg by mouth three times a day. albuterol HFA (PROAIR HFA) 90 mcg/actuation inhaler Inhale 1 Puff as instructed every 4 hours as needed. amLODIPine (NORVASC) 2.5 mg tablet ferrous sulfate 325 mg (65 mg iron) tablet Take 325 mg by mouth daily with breakfast. CPAP No current facility-administered medications for this visit. ALLERGIES Allergen Reactions Cats Swelling Latex Rash Lisinopril Swelling Tongue swells up Percocet [Oxycodone* Itching PAST SURGICAL HISTORY Procedure Laterality Date APPENDECTOMY ARTHRP KNE CONDYLEANDPLATU MEDIALANDLAT COMPARTMENTS Right 10/27/2018 Knee replacement, total BRAIN SURGERY HX brain aneurysm coiled CARDIAC CATH 2019 CHOLECYSTECTOMY Cholecystectomy SHOULDER SURGERY HX Right VAGINAL HYSTERECTOMY UTERUS 250 GM/< Hysterectomy, vaginal, Fibroids FAMILY HISTORY Problem Relation Age of Onset Cancer Mother Liver Diabetes Mother Hypertension Mother Lipids Mother Heart Father [place] Psychiatry Sister Hypertension Sister Diabetes Sister Social History Tobacco Use Smoking status: Former Smokeless tobacco: Never Tobacco comments: Smoked as a teenager Substance Use Topics Alcohol use: No Drug use: No REVIEW OF SYSTEMS GENERAL: Negative for Malaise, significant weight loss, fever RESPIRATORY: Negative for cough, wheezing and shortness of breath CARDIOVASCULAR: Negative for chest pain, leg swelling and palpitations GI: Negative for abdominal discomfort, blood in stools or black stools and change in bowel habits : Negative for dysuria, frequency and incontinence MUSCULOSKELETAL: Negative for joint pain or swelling, back pain, and muscle pain. SKIN: Negative for lesions, rash, and itching. HEMATOLOGY/LYMPHOLOGY Negative for prolonged bleeding, bruising easily, and swollen nodes. ENDOCRINE: Negative for cold or heat intolerance, polyuria, polydipsia and goiter. NEURO: negative Physical Exam: Constitutional: Pt is a well developed 68 year old female who is alert, oriented and cooperative Eyes: Following during examination. No redness or drainage. Respiratory: RR normal and nonlabored. Even breathing. No evidence of distress or shortness of breath. Psychology: Patient is engaged during conversation. Normal affect and mood. Does not appear depressed or anxious during encounter. Vascular: Dorsalis pedis and posterior tibial pulses palpable as b/l Capillary Fill time < 5 seconds to digits 1-5 b/l Skin temperature warm to warm proximal to distal b/l Hair growth present to digits Neurological: intact light touch/epicritic sensation b/l intact protective sensation no significant neurological deficits Dermatological: Nails 1-5 b/l appear normal. Webspaces clean and dry 1-4 b/l. Skin appears well hydrated and supple. good color, texture, turgor. No open lesions present. No callosities present. Musculoskeletal/Orthopaedic: Patient has pain to palpation of right posterior heel at achilles insertion Foot type is neutral structurally AJ ROM is full with knee extended and flexed 1st MPJ is full when loaded and no pain or crepitus are noted with ROM. MTJ, STJ are full and free of pain and crepitus. +5/5 muscle s (more content not included)... [facility] 05-29-2023 Note HNO ID: [id number] Author: Sue Smith LPN Service: ? Author Type: LICENSED NURSE Type: Progress Notes Filed: 05/29/2023 9:00 AM Note Text: AMB ROOMING INTAKE FLOWSHEET DATA Risk Screening Do you have concerns about personal safety or safety in the home?: No Pain Pain Level: 8 Pain Location: Heel-Right Description: Throbbing Duration Amount of Time: 3 Duration Units: Months Frequency: Intermittent Intervention/Comfort measure: Reposition, Relaxation Patient presents with: Right Foot - New, Pain Sue Smith LPN [facility] 05-29-2023 Note HNO ID: [id number] Author: Jennifer Grover RT(R) Service: ? Author Type: Relocation Counselor Type: Progress Notes Filed: 05/29/2023 8:32 AM Note Text: Radiology Service Progress Note PATIENT NAME: Roxy Llamas DATE OF SERVICE: May 29, 2023 TIME: 8:23 AM PATIENT IDENTITY VERIFICATION COMPLETED USING TWO (2) IDENTIFIERS: Name and Date of confirmed by patient verbally. FALL SCREENING: Has the patient had 2 falls in the last year or 1 fall with injury or currently using an Ambulatory Assistive Device (Walker, Cane, Wheelchair, Crutches, etc.)? No PATIENT GENDER DATA: Female. status: : No status: NO. PATIENT RELEVANT IMPLANT DATA REVIEWED: Yes RADIOLOGY DEPARTMENT: General X-ray: Exam(s) Completed: Lower Extremity X-Ray(s): Foot, Right PERIPHERAL IV DATA: Not applicable SIGNED BY: RT Corby(R) May 29, 2023 8:23 AM [facility] 04-16-2023 Note HNO ID: [id number] Author: Moises Malcolm APRN.[facility] PHYSICIAN Service: ? Author Type: Nurse Practitioner Type: Progress Notes Filed: 04/16/2023 1:05 PM Note Text: SUBJECTIVE: Roxy Llamas is a 68 year old female who presents today to establish care and concerns for fecal incontinence. Previous PCP Dr Pierre. PMH HTN and Afib, DM, HLD. Reports she no longer has diabetes. I reviewed her past medical, surgical, social, and family histories today and updated chart. Allergies, chronic medications, and supplements were also reviewed and her list is now up to date. Concern today: fecal incontinence. Pt states she has been having incontnece of feces. States this has been having episodes for about 2 months. States at times she has control and has a normal BM. States other times it can happen multiple times a day. States it will occur 3-4x/wk. Reports normal color. Denies abd cramping, bloating gas, blood in stool in black tarry stools. Hx of urinary incontinence: this has been occurring for years. She did she urologist in the past. States she is up every 2-3 hours. HTN: reports being on medication for her BP starting in her 40s. Ms. Llamas indicates that she is feeling well and denies any symptoms referable to elevated blood pressure. Specifically denies headache, chest pain, palpitations, dyspnea, peripheral edema, claudication symptoms, orthopnea, fatigue, and PND. Patient denies any side effects of her medication(s) and is compliant with their regimen. She does check BP's away from this office with average BP's in the 120s/40-50s range. Roxy denies regular aerobic exercise. She watches her diet for sodium, low fat and low cholesterol generally not very much.She is taking norvasc 5 mg daily and she reports she stopped taking her coreg. Last 3 Encounter BP Readings: Date: BP: 04/16/2023 128/78 07/07/2019 173/91 07/04/2019 188/93 Afib: She is seeing Agriculture Manager Dr Broderick in [place]. She has an appt 05/14/23. She is taking Coreg 12.5 mg twice daily. She reports when her heart rate goes up she has gone to the ER. Last time end of January. Reports she was not able to be on a blood thinner in the past due to coiling for cerebral aneurysm. DM: Dx 4 yrs ago. States she believes in ollie healing and it just went away. States her last PCP checked her blood work about 2 months ago and per pt it was okay. She does not take anything for this. Asthma: Dx in her 40s. Controlled. States she has an albuerol inhaler she will use. Acitivity like going up and down stairs she will have to use it. At most once every 2 wks. Denies hospitalizations or ER visits. Hx brain aneurysm: 2014 and had coiling. She was seeing Dr Keith, neurology. Obesity: pt states her prevoius PCP wanted her to have bariatric and she does not want to do this Neuropathy: chronic. Bilateral lower legs below knees, especially feet. Reports worse at night. She has been on gabapentin for this for several years. Preventative: she would like to have her flu shot and prevnar 20. She is due for her mammogram. She reports she had bone density this past summer. Reports last colonoscopy >5 yrs ago. PAST MEDICAL HISTORY Diagnosis Date Active asthma Anxiety Arthritis of knee, left 10/21/2012 Brain aneurysm Diabetes mellitus type 2, uncomplicated (HCC) Fibroids Hyperlipidemia LDL goal < 100 02/25/2013 Hypertension Morbidly obese ([facility]) 10/20/2018 RUTH (obstructive sleep apnea) 10/20/2018 Peripheral neuropathy 10/20/2018 Pulmonary embolism ([facility]) 12/13/2012 Right shoulder injury 10/21/2012 Stroke ([facility]) PAST SURGICAL HISTORY Procedure Laterality Date APPENDECTOMY ARTHRP KNE CONDYLEANDPLATU MEDIALANDLAT COMPARTMENTS Right 10/27/2018 Knee replacement, total BRAIN SURGERY HX brain aneurysm coiled CARDIAC CATH 2018 CHOLECYSTECTOMY Cholecystectomy SHOULDER SURGERY HX Right VAGINAL HYSTERECTOMY UTERUS 250 GM/< Hysterectomy, vaginal, Fibroids Social History Tobacco Use Smoking status: Former Smokeless tobacco: Never Tobacco comments: Smoked as a teenager Substance Use Topics Alcohol use: No Drug use: No Family history reviewed. ALLERGIES Allergen Reactions Cats Swelling Latex Rash Lisinopril Swelling Tongue swells up Percocet [Oxycodone* Itching Current Outpatient Medications Medication Sig meclizine (ANTIVERT) 25 mg tab Take 25 mg by mouth. amLODIPine (NORVASC) 5 mg tablet carvedilol (COREG) 12.5 mg tablet 12.5 mg. ferrous sulfate 325 mg (65 mg iron) tablet Take 325 mg by mouth daily with breakfast. gabapentin (NEURONTIN) 800 mg tablet Take 800 mg by mouth three times a day. amLODIPine (NORVASC) 2.5 mg tablet CPAP No current facility-administered medications for this visit. Review of Systems Constitutional: Negative for chills, diaphoresis, fever, malaise/fatigue and weight loss. HENT: Negative. Negative for congestion, ear pain, sore throat and tinnitus. (more content not included)... [facility] 04-16-2023 Instructions Moises Malcolm APRN.[facility] PHYSICIAN - 04/16/2023 9:03 AM EDT BONE MINERAL DENSITY PATIENT INSTRUCTIONS Bone mineral density testing measures the amount of calcium in certain parts of your bones. This information determines how strong your bones are. The test is used to detect osteoporosis, a disease in which the bone's mineral content and density are low, increasing a person's risk of fractures. The lumbar spine (lower back) and the hip are the skeletal sites usually examined. For the test, remember that: 1. You cannot take this test if you are . 2. Eat a normal diet on the day of the test. 3. Take your medications as you normally would. 4. DO NOT take calcium supplements (such as Tums) for 24 hours before the test. 5. On the day of the test, leave valuables (jewelry or credit cards) at home. 6. The test should be performed prior to oral, rectal or IV contrast studies, or at least 7 days after any of these studies. For the test, you may be asked to wear a hospital gown. You will lie on your back, on a padded table, in a comfortable position. Generally, you can resume your usual activities immediately. documented in this encounter [facility] 04-16-2023 History of Present illness Narrative Formatting of this note is different fro m the original. SUBJECTIVE: Roxy Llamas is a 68 year old female who presents today to establish care and concerns for fecal incontinence. Previous PCP Dr Pierre. PMH HTN and Afib, DM, HLD. Reports she no longer has diabetes. I reviewed her past medical, surgical, social, and family histories today and updated chart. Allergies, chronic medications, and supplements were also reviewed and her list is now up to date. Concern today: fecal incontinence. Pt states she has been having incontnece of feces. States this has been having episodes for about 2 months. States at times she has control and has a normal BM. States other times it can happen multiple times a day. States it will occur 3-4x/wk. Reports normal color. Denies abd cramping, bloating gas, blood in stool in black tarry stools. Hx of urinary incontinence: this has been occurring for years. She did she urologist in the past. States she is up every 2-3 hours. HTN: reports being on medication for her BP starting in her 40s. Ms. Llamas indicates that she is feeling well and denies any symptoms referable to elevated blood pressure. Specifically denies headache, chest pain, palpitations, dyspnea, peripheral edema, claudication symptoms, orthopnea, fatigue, and PND. Patient denies any side effects of her medication(s) and is compliant with their regimen. She does check BP's away from this office with average BP's in the 120s/40-50s range. Roxy denies regular aerobic exercise. She watches her diet for sodium, low fat and low cholesterol generally not very much.She is taking norvasc 5 mg daily and she reports she stopped taking her coreg. Last 3 Encounter BP Readings: Date: BP: 04/16/2023 128/78 07/07/2019 173/91 07/04/2019 188/93 Afib: She is seeing Agriculture Manager Dr Broderick in [place]. She has an appt 05/14/23. She is taking Coreg 12.5 mg twice daily. She reports when her heart rate goes up she has gone to the ER. Last time end of January. Reports she was not able to be on a blood thinner in the past due to coiling for cerebral aneurysm. DM: Dx 4 yrs ago. States she believes in ollie healing and it just went away. States her last PCP checked her blood work about 2 months ago and per pt it was okay. She does not take anything for this. Asthma: Dx in her 40s. Controlled. States she has an albuerol inhaler she will use. Acitivity like going up and down stairs she will have to use it. At most once every 2 wks. Denies hospitalizations or ER visits. Hx brain aneurysm: 2014 and had coiling. She was seeing Dr Keith, neurology. Obesity: pt states her prevoius PCP wanted her to have bariatric and she does not want to do this Neuropathy: chronic. Bilateral lower legs below knees, especially feet. Reports worse at night. She has been on gabapentin for this for several years. Preventative: she would like to have her flu shot and prevnar 20. She is due for her mammogram. She reports she had bone density this past summer. Reports last colonoscopy >5 yrs ago. PAST MEDICAL HISTORY Diagnosis Date Active asthma Anxiety Arthritis of knee, left 10/21/2012 Brain aneurysm Diabetes mellitus type 2, uncomplicated (HCC) Fibroids Hyperlipidemia LDL goal < 100 02/25/2013 Hypertension Morbidly obese (HCC) 10/20/2018 RUTH (obstructive sleep apnea) 10/20/2018 Peripheral neuropathy 10/20/2018 Pulmonary embolism ([facility]) 12/13/2012 Right shoulder injury 10/21/2012 Stroke ([facility]) PAST SURGICAL HISTORY Procedure Laterality Date APPENDECTOMY ARTHRP KNE CONDYLE&PLATU MEDIAL&LAT COMPARTMENTS Right 10/27/2018 Knee replacement, total BRAIN SURGERY HX 8-2012 brain aneurysm coiled CARDIAC CATH 2019 CHOLECYSTECTOMY Cholecystectomy SHOULDER SURGERY HX Right VAGINAL HYSTERECTOMY UTERUS 250 GM/< Hysterectomy, vaginal, Fibroids Social History Tobacco Use Smoking status: Former Smokeless tobacco: Never Tobacco comments: Smoked as a teenager Substance Use Topics Alcohol use: No Drug use: No Family history reviewed. ALLERGIES Allergen Reactions Cats Swelling Latex Rash Lisinopril Swelling Tongue swells up Percocet [Oxycodone* Itching Current Outpatient Medications Medication Sig meclizine (ANTIVERT) 25 mg tab Take 25 mg by mouth. amLODIPine (NORVASC) 5 mg tablet carvedilol (COREG) 12.5 mg tablet 12.5 mg. ferrous sulfate 325 mg (65 mg iron) tablet Take 325 mg by mouth daily with breakfast. gabapentin (NEURONTIN) 800 mg tablet Take 800 mg by mouth three times a day. amLODIPine (NORVASC) 2.5 mg tablet CPAP No current facility-administered medications for this visit. Review of Systems Constitutional: Negative for chills, diaphoresis, fever, malaise/fatigue and weight loss. HENT: Negative. Negative for congestion, ear pain, sore throat and tinnitus. Eyes: Negative for blurred vision, double vision, photophobia and pain. Respiratory: Negative for cough, sputum production, shortness of breath and wheezing. Cardiovascular: Negative for chest pain, palpitations, orthopnea and leg swelling. Gastrointestinal: Negative for abdominal pain, blood in stool, constipation, diarrhea, heartburn, melena, nausea and vomiting. Fecal incontinence Genitourinary: Negative for dysuria, frequency, hematuria and urgency. Urinary incontinence Musculoskeletal: Positive for joint pain. Negative for back pain, falls, myalgias and neck pain. Left knee pain, Reports working on losing weight so she can have Left knee replacement in Aug or September Skin: Negative for itching and rash. Neurological: Negative for dizziness, tingling, tremors, sensory change, speech change, focal weakness, weakness and headaches. Endo/Heme/Allergies: Negative for environmental allergies and polydipsia. Does not bruise/bleed easily. Psychiatric/Behavioral: Negative for depression and substance abuse. The patient is not nervous/anxious and does not have insomnia. BP 128/78 Pulse 73 Temp (Src) 97.8 (Oral) Resp 18 Ht 5' 2.25 (1.58m) Wt 247 lb (112.0kg) SpO2 98% BMI 44.82 kg/(m^2). Physical Exam Vitals and nursing note reviewed. Constitutional: General: She is not in acute distress. Appearance: Normal appearance. She is obese. She is not ill-appearing or diaphoretic. HENT: Head: Normocephalic and atraumatic. Right Ear: External ear normal. Left Ear: External ear normal. Nose: Nose normal. Mouth/Throat: Pharynx: No oropharyngeal exudate. Eyes: General: Lids are normal. No scleral icterus. Right eye: No discharge. Left eye: No discharge. Conjunctiva/sclera: Conjunctivae normal. Pupils: Pupils are equal, round, and reactive to light. Neck: Vascular: Normal carotid pulses. No carotid bruit. Cardiovascular: Rate and Rhythm: Normal rate and regular rhythm. Pulses: Normal pulses. Heart sounds: Normal heart sounds, S1 normal and S2 normal. No murmur heard. No friction rub. No gallop. Pulmonary: Effort: Pulmonary effort is normal. No accessory muscle usage or respiratory distress. Breath sounds: Normal breath sounds. No decreased breath sounds, wheezing, rhonchi or rales. Chest: Chest wall: No tenderness. Abdominal: General: Abdomen is protuberant. Bowel sounds are normal. There is no distension. Palpations: Abdomen is soft. Tenderness: There is no abdominal tenderness. Musculoskeletal: General: No tenderness. Normal range of motion. Cervical back: Normal range of motion and neck supple. Skin: General: Skin is warm and dry. Coloration: Skin is not pale. Findings: No erythema or rash. Nails: There is no clubbing. Neurological: Mental Status: She is alert and oriented to person, place, and time. Sensory: Sensation is intact. Motor: Motor function is intact. No abnormal muscle tone. Coordination: Coordination normal. Gait: Gait is intact. Deep Tendon Reflexes: Reflexes are normal and symmetric. Psychiatric: Mood and Affect: Mood and affect normal. Cognition and Memory: Memory normal. Judgment: Judgment normal. ASSESSMENT/PLAN: 1. Incontinence of feces, unspecified fecal incontinence type - ICD9: 787.60, ICD10: R15.9 (primary diagnosis) - occasional episodes of incontinence. This started ~ 2 months ago. Will refer to GI. - CONSULT TO GASTROENTEROLOGY 2. Encounter for medical examination to establish care - ICD9: V70.9, ICD10: Z00.00 - Counseled on healthy diet and regular exercise - Calcium intake with supplements or by diet of 1000 mg/day for under 50, 3753-4273 mg/day for 50+ - Colorectal cancer screening recommended - agrees to Colonoscopy - Mammogram ordered - exam recommended once yearly 3. Hypertension, unspecified type - ICD9: 401.9, ICD10: I10 - Controlled - Continue current medications - Recommend home blood pressure monitoring, to bring results to next visit - Encouraged sodium restriction, DASH or Mediterranean diet - Recommend regular aerobic exercise - Discussed need for and benefit of weight loss. BMI 44.81 kg/(m^2) - Reviewed risks of hypertension and principles of treatment - CBC - COMP METABOLIC PANEL 4. Asthma, unspecified asthma severity, unspecified whether complicated, unspecified whether persistent - ICD9: 493.90, ICD10: J45.909 - Mild intermittent asthma stable - Continue current medications - Avoidance of triggers recommended - SPIROMETRY - BASELINE AND POST DILATOR 5. Hyperlipidemia with target low density lipoprotein (LDL) cholesterol less than 100 mg/dL - ICD9: 272.4, ICD10: E78.5 - Control undetermined, due for labs - Continue current medications - Counseled on healthy diet and regular exercise - LIPID PANEL BASIC 6. Atrial fibrillation, unspecified type (HCC) - ICD9: 427.31, ICD10: I48.91 - Chronic stable on coreg - continue management with Dr Broderick 7. Morbidly obese (HCC) - ICD9: 278.01, ICD10: E66.01 Weight increasing - Behavioral intervention - pt is not interested in surgery for this. - she reports her insurance would not cover Weight program 8. Frequent UTI - ICD9: 599.0, ICD10: N39.0 Recurrent, also incontinence. States she does not fully empty bladder. She has never seen anyone for this. - Patient education for prevention given Check urine - referral to urology - CONSULT TO UROLOGY - URINALYSIS WITH MICROSCOPIC, REFLEX CULTURE 9. Vitamin D deficiency - ICD9: 268.9, ICD10: E55.9 - VITAMIN D 25 HYDROXY 10. Hx of diabetes mellitus - ICD9: V12.29, ICD10: Z86.39 - HGB A1C 11. Encounter for immunization - ICD9: V03.89, ICD10: Z23 - PNEUMOCOCCAL VACCINE (PREVNAR 20) - INFLUENZA VACCINE, PRSV FREE, AGE 65+ YR, HIGH DOSE, QUADRIVALENT (FLUZONE HIGH-DOSE) - given today 12. Encounter for screening mammogram for malignant neoplasm of breast - ICD9: V76.12, ICD10: Z12.31 - [place] SCREENING 13. Screening for thyroid disorder - ICD9: V77.0, ICD10: Z13.29 - TSH BLD 14. Encounter for hepatitis C screening test for low risk patient - ICD9: V73.89, ICD10: Z11.59 - HEPATITIS C ANTIBODY IA WITH CONFIRMATION Moises Malcolm APRN.ELIZA I spent a total of 68 minutes on the date of the service which included preparing to see the patient, [id number] patient care, completing clinical documentation, obtaining and/or reviewing separately obtained history, performing a medically appropriate examination, counseling and educating the patient/family/caregiver, ordering medications, tests, or procedures, and communicating results to the patient/family/caregiver. documented in this encounter [facility] 09-26-2022 Note Addended by: Ainsley HU on: 09/26/2022 08:12 AM Modules accepted: Orders [facility] 09-26-2022 Miscellaneous Notes Addended by: LADONNA [facility] on: 09/26/2022 08:12 AM Modules accepted: Orders Patient contacted the office today, as they no longer wish to proceed with workup towards weightloss surgery. Reason for withdraw from program: Reason for withdraw from program: patient stated she has recently found out she has serious health issues she must address first, and asked to cancel all upcoming appointments at this time. [] Non-Surgical Program Offered [x] Patient is not Interested at this time. [] Patient is Interested in NSURG option, and forwarded to NPT for scheduling. New Psych and BNA appointments cancelled. [x] Sent to surgeons clinical pool to: [] Clinical staff to cancel any outstanding Testing Labs Referrals Scheduled [facility] Appointments (DE/Psych/Nutrition) [] Clinical staff to notify ALS via Clinical Documentation if EGD is to be cancelled via pool: [facility] ALS CLINICAL REGISTRY RN (List Surgeon as provider in the TE) [] Clinical staff to note in specialty comment date patient has withdrawn from the program [] Sent to BEULAH and Surgical Navigation and Financial Teams for notification. Patient called to cancel EGD 09/25/2022. Patient states that she needs to drop out of program at this time due to other health issues. PER ALS Just spoke with this patient, she has been rescheduled for BNA Initial, and New D/E with NK-both at the [place] location. Patient is aware of the 129.50 fee, asked to be paid at the time of service. Patient missed BNA and D/E. Spoke with pt and still interested in program. Please reschedule pt. Thanks Addended by: NANCY AMARAL on: 08/25/2022 08:41 AM Modules accepted: Orders Addended by: YANELY JARVIS on: 08/21/2022 03:43 PM Modules accepted: Orders ORDERS PENDED PLAN Encounter Diagnoses Name Primary? Primary hypertension High cholesterol Gastroesophageal reflux disease without esophagitis Morbid obesity with BMI of 45.0-49.9, adult (CMS/HCC) (HCC) I have recommended proceeding with the evaluation and work-up for the primary procedure as outlined below: PATIENT SUMMARY Roxy SAAVEDRA 67 y.o. female with Body mass index is 45.29 kg/m . Laparoscopic Sleeve Gastrectomy and Laparoscopic Liver Biopsy Procedure DM[] HTN[x] RUTH[x] GERD[] HL[x] OA[] TOB[] Date of Surgery: TBD NOTES MP PCP: Dr. Elliott INITIAL TESTING RESULTS Labwork [x] CMP, TSH, Fasting Lipid Profile, Mg, Zinc, Vit B1 (whole blood), Vit B12, 25-OH Vit D, Fe, Ferritin, Folate Tobacco [] Serum Nicotine / Cotinine [] Negative [] Positive EGD [x] Dx: [x] GERD [] Dyspepsia [] Other Pathology [x] H. pylori [] Negative [] Positive UGI [x] [] not ordered US Abdomen [] [x] not ordered S/p juana RUTH eval [x] [x] On CPAP / Obtain settings Hematology [] [] Hypercoagulation panel Toxicology [] [] Urine drug screen [] EtOH screen Addtional [x] [x] Hgb A1c INITIAL CONSULTATIONS CLEARANCE / MANAGEMENT Psychology [x] Dr. Mckeonitinicole [x] Cardiology [x] Dr. Patiño Clearance from Dr. Breaux with [facility] for DVT prophylaxis post-operatively. Pulmonary [x] Dr. Melo [] []Heme/Onc []Psychiatry []Pain mgmt PSD [x] Physician supervised diet: []None [x]3 mos []6 mos Preop diet [x] Preop low calory diet: []None []1 wk [x]2 wks []Ext. FINAL PRE-OP TESTING RESULTS Labwork [x] [x]Pre-op CBC [x]BMP []Serum Nicotine / Cotinine EKG [x] CXR [x] POST-OP MEDICATIONS Ulcer Ppx [x] Omeprazole 20 mg PO [x]QD []BID Gallstone Ppx [] Ursodiol 300 mg []BID S/p juana DVT Ppx [] DVT prophylaxis per final preop visit estimated risk Estimated calculated risk: % Schedule final pre-operative office visit with surgeon, pre-operative education class, and pre-operative exercise class prior to date of surgery ATTESTATION I reviewed with the patient the details of the proposed operation. The risks benefits and options were discussed. Risks included but were not limited to bleeding, infection, damage to other surrounding organs, cardio-pulmonary complications related to anesthesia, conversion from laparoscopic to and open procedure, the need for reoperative or endoscopic therapy, the potential for prolonged mechanical ventilation, and . All questions were fully answered to the patient's satisfaction and they wish to proceed with surgical intervention. Sleeve The face to face encounter was spent counseling the patient and discussing the risks,benefits and options of surgery as well as the perioperative care plan. The patient was seen and examined independently and relevant data including a full chart rreview was performed by myself. MICHEL Haynes FACS Director - Minimally Invasive Surgery freda Ramsay [facility] surgical patient Navigation & Financial Counseling Discussion Patient Communication: In office SURGEON: [] LANCE [] AD [x] MP [] TB [] LM PROCEDURE: [] LRYGB [x] LSG [] LYLE-S [] LYLE [] UNDECIDED [] REV: SPECIFY: Confirmed pt wants to continue with surgical program/plan [] YES [] NO (complete program withdrawal note/process) CO-MORBIDS: [] NONE [] DM [x]HTN [x] RUTH []GERD [] OTH: HL PRIVATE PAY: [x] NO []YES DATE OF INITIAL BENEFITS VERIFICATION: TRANSFER FU: [] YES [x] NO PRIMARY INSURANCE: Payor: Independent IP / Plan: Independent IP / Product Type: Commercial / BENEFIT ON PLAN: [x] NO [] YES BENEFIT MAX: [] NO [] YES -- BENEFIT MAX: $ EMPLOYER: DIET AND EXERCISE ([place]) REQUIREMENT PRIMARY [] NONE []3M [] 6M []9M [] Medicare 4 Months [] SPR (3M) []OTHER: SECONDARY INSURANCE: YES - [facility] Medicare Advantage BENEFIT ON PLAN: [] NO [x] YES BENEFIT MAX: [] NO [] YES -- BENEFIT MAX: $ AUTH REQUIRED FROM SECONDARY [] NO [] YES DIET AND EXERCISE REQUIREMENT SECONDARY [] NONE [x]3M [] 6M [] Medicare 4 months [] SPR (3M) []OTHER: ___ [x] Discussed with patient: Financial cost overview (document signed and pt given copy at new pt consult visit with surgeon), Initial appointments: Bariatric Nutrition Assessment (BNA) & Diet and Exercise (DE) Patient to look for yellow envelope in mail. This yellow envelope will contain orders for labs, testing and required clearances. Pt encouraged to complete early in program to prevent delays. Encourage blood work to be draw by 1st DE appointment. [x] Reviewed OOP cost, including: [x] Overview of inpatient admission benefits - estimated inpatient co-pays, deductibles and/or co-insurance - Estimated OOP costs form reviewed with patient, and copy given to patient at new pt visit. [x] Reviewed next steps with patient: 1) Scheduled at new pt surgeon visit: [facility] (RD) for a Nutrition Assessment (BNA) and Pre-operative Diet and Exercise (DE) appointment #1. [x] Patient reminded to arrive 15 minutes early for check in. Late arrivals may need to be rescheduled. 2) Schedule: Diet and Exercise Apt #2 only scheduled after initial BNA and DE completed, 3) Behavioral Health apt scheduled after DE started. Reviewed rational and goal of Behavioral Health appointments. 4) [x] Reinforced need to cancel any WMI appointments 48 hours in advance. Cautioned NS/Same day cancellations may result in delay in program or program completion hold. Noted: DE series needs to be a monthly series or insurance company may require repeat of the entire series. 5) [] Smoker/tobacco products including vaping: reviewed need for cessation before surgery clearance and life long abstinence after surgery for best outcomes. Patient navigation to surgery: [] Explained to patient that average time from initial consult to date of surgery can be 6-8 months. - Process can take longer if there are cancelled appointments, delays in testing and/or additional clearances that needs to be completed. - Reviewed importance of patient active engagement in making and keeping appointments to keep the process moving. - Reinforced need to cancel appointments at least 48 hours in advance. Reviewed that instances of No Shows and Same Day Appointment Cancellations may result in program/surgery delay or hold. [x] Patient advised of importance of having voicemail and MyChart for office communications and lab/testing results before and after surgery. documented in this encounter [email or web address] 09-26-2022 Telephone encounter Note Formatting of this note might be differe nt from the original. Patient contacted the office today, as they no longer wish to proceed with workup towards weightloss surgery. Reason for withdraw from program: Reason for withdraw from program: patient stated she has recently found out she has serious health issues she must address first, and asked to cancel all upcoming appointments at this time. [] Non-Surgical Program Offered [x] Patient is not Interested at this time. [] Patient is Interested in NSURG option, and forwarded to NPT for scheduling. New Psych and BNA appointments cancelled. [x] Sent to surgeons clinical pool to: [] Clinical staff to cancel any outstanding Testing Labs Referrals Scheduled WMI Appointments (DE/Psych/Nutrition) [] Clinical staff to notify ALS via Clinical Documentation if EGD is to be cancelled via pool: [facility] ALS CLINICAL REGISTRY RN (List Surgeon as provider in the TE) [] Clinical staff to note in specialty comment date patient has withdrawn from the program [] Sent to BEULAH and Surgical Navigation and Financial Teams for notification. [facility] [email or web address] 09-26-2022 Telephone encounter Note Formatting of this note might be differe nt from the original. Patient called to cancel EGD 09/25/2022. Patient states that she needs to drop out of program at this time due to other health issues. PER ALS [facility] [email or web address] 09-17-2022 Telephone encounter Note Formatting of this note might be differe nt from the original. Just spoke with this patient, she has been rescheduled for BNA Initial, and New D/E with NK-both at the [place] location. Patient is aware of the 129.50 fee, asked to be paid at the time of service. [facility] 09-17-2022 Telephone encounter Note Formatting of this note might be differe nt from the original. Patient missed BNA and D/E. Spoke with pt and still interested in program. Please reschedule pt. Thanks [facility] 08-25-2022 Note Addended by: NANCY AMARAL on: 08/25/2022 08:41 AM Modules accepted: Orders [facility] Work Phone: 08-21-2022 Note Addended by: YANELY JARVIS on: 08/21/2022 03:43 PM Modules accepted: Orders [facility] 08-21-2022 Telephone encounter Note Formatting of this note might be differe nt from the original. ORDERS PENDED [facility] 08-21-2022 Telephone encounter Note Formatting of this note is different fro m the original. PLAN Encounter Diagnoses Name Primary? Primary hypertension High cholesterol Gastroesophageal reflux disease without esophagitis Morbid obesity with BMI of 45.0-49.9, adult (CMS/HCC) (HCC) I have recommended proceeding with the evaluation and work-up for the primary procedure as outlined below: PATIENT SUMMARY Roxy SAAVEDRA 67 y.o. female with Body mass index is 45.29 kg/m . Laparoscopic Sleeve Gastrectomy and Laparoscopic Liver Biopsy Procedure DM[] HTN[x] RUTH[x] GERD[] HL[x] OA[] TOB[] Date of Surgery: TBD NOTES MP PCP: Dr. Elliott INITIAL TESTING RESULTS Labwork [x] CMP, TSH, Fasting Lipid Profile, Mg, Zinc, Vit B1 (whole blood), Vit B12, 25-OH Vit D, Fe, Ferritin, Folate Tobacco [] Serum Nicotine / Cotinine [] Negative [] Positive EGD [x] Dx: [x] GERD [] Dyspepsia [] Other Pathology [x] H. pylori [] Negative [] Positive UGI [x] [] not ordered US Abdomen [] [x] not ordered S/p juana RUTH eval [x] [x] On CPAP / Obtain settings Hematology [] [] Hypercoagulation panel Toxicology [] [] Urine drug screen [] EtOH screen Addtional [x] [x] Hgb A1c INITIAL CONSULTATIONS CLEARANCE / MANAGEMENT Psychology [x] Dietitian [x] Cardiology [x] Need Clearance from Dr. Breaux with [facility] for DVT prophylaxis post-operatively. Pulmonary [x] Dr. Melo [] []Heme/Onc []Psychiatry []Pain mgmt PSD [x] Physician supervised diet: []None [x]3 mos []6 mos Preop diet [x] Preop low calory diet: []None []1 wk [x]2 wks []Ext. FINAL PRE-OP TESTING RESULTS Labwork [x] [x]Pre-op CBC [x]BMP []Serum Nicotine / Cotinine EKG [x] CXR [x] POST-OP MEDICATIONS Ulcer Ppx [x] Omeprazole 20 mg PO [x]QD []BID Gallstone Ppx [] Ursodiol 300 mg []BID S/p juana DVT Ppx [] DVT prophylaxis per final preop visit estimated risk Estimated calculated risk: % Schedule final pre-operative office visit with surgeon, pre-operative education class, and pre-operative exercise class prior to date of surgery ATTESTATION I reviewed with the patient the details of the proposed operation. The risks benefits and options were discussed. Risks included but were not limited to bleeding, infection, damage to other surrounding organs, cardio-pulmonary complications related to anesthesia, conversion from laparoscopic to and open procedure, the need for reoperative or endoscopic therapy, the potential for prolonged mechanical ventilation, and . All questions were fully answered to the patient's satisfaction and they wish to proceed with surgical intervention. Sleeve The face to face encounter was spent counseling the patient and discussing the risks,benefits and options of surgery as well as the perioperative care plan. The patient was seen and examined independently and relevant data including a full chart rreview was performed by myself. MICHEL Haynes FACS Director - Minimally Invasive Surgery [facility] 07-29-2022 Note nitial New BCC surgi alis patient Navigation & Financial Counseling Discussion Patient Communication: In office SURGEON: [] JZ [] AD [x] MP [] TB [] LM PROCEDURE: [] LRYGB [x] LSG [] LYLE-S [] LYLE [] UNDECIDED [] REV: SPECIFY: Confirmed pt wants to continue with surgical program/plan [] YES [] NO (complete program withdrawal note/process) CO-MORBIDS: [] NONE [] DM [x]HTN [x] RUTH []GERD [] OTH: HL PRIVATE PAY: [x] NO []YES DATE OF INITIAL BENEFITS VERIFICATION: TRANSFER FU: [] YES [x] NO PRIMARY INSURANCE: Payor: Independent IP / Plan: Independent IP / Product Type: Commercial / BENEFIT ON PLAN: [x] NO [] YES BENEFIT MAX: [] NO [] YES -- BENEFIT MAX: $ EMPLOYER: DIET AND EXERCISE (DE) REQUIREMENT PRIMARY [] NONE []3M [] 6M []9M [] Medicare 4 Months [] SPR (3M) []OTHER: SECONDARY INSURANCE: YES - [facility] Medicare Advantage BENEFIT ON PLAN: [] NO [x] YES BENEFIT MAX: [] NO [] YES -- BENEFIT MAX: $ AUTH REQUIRED FROM SECONDARY [] NO [] YES DIET AND EXERCISE REQUIREMENT SECONDARY [] NONE [x]3M [] 6M [] Medicare 4 months [] SPR (3M) []OTHER: ___ [x] Discussed with patient: Financial cost overview (document signed and pt given copy at new pt consult visit with surgeon), Initial appointments: Bariatric Nutrition Assessment (BNA) & Diet and Exercise (DE) Patient to look for yellow envelope in mail. This yellow envelope will contain orders for labs, testing and required clearances. Pt encouraged to complete early in program to prevent delays. Encourage blood work to be draw by 1st DE appointment. [x] Reviewed OOP cost, including: [x] Overview of inpatient admission benefits - estimated inpatient co-pays, deductibles and/or co-insurance - Estimated OOP costs form reviewed with patient, and copy given to patient at new pt visit. [x] Reviewed next steps with patient: 1) Scheduled at new pt surgeon visit: [facility] (RD) for a Nutrition Assessment (BNA) and Pre-operative Diet and Exercise (DE) appointment #1. [x] Patient reminded to arrive 15 minutes early for check in. Late arrivals may need to be rescheduled. 2) Schedule: Diet and Exercise Apt #2 only scheduled after initial BNA and DE completed, 3) Behavioral Health apt scheduled after DE started. Reviewed rational and goal of Behavioral Health appointments. 4) [x] Reinforced need to cancel any WMI appointments 48 hours in advance. Cautioned NS/Same day cancellations may result in delay in program or program completion hold. Noted: DE series needs to be a monthly series or insurance company may require repeat of the entire series. 5) [] Smoker/tobacco products including vaping: reviewed need for cessation before surgery clearance and life long abstinence after surgery for best outcomes. Patient navigation to surgery: [] Explained to patient that average time from initial consult to date of surgery can be 6-8 months. - Process can take longer if there are cancelled appointments, delays in testing and/or additional clearances that needs to be completed. - Reviewed importance of patient active engagement in making and keeping appointments to keep the process moving. - Reinforced need to cancel appointments at least 48 hours in advance. Reviewed that instances of No Shows and Same Day Appointment Cancellations may result in program/surgery delay or hold. [x] Patient advised of importance of having voicemail and MyChart for office communications and lab/testing results before and after surgery. [facility] 07-29-2022 Telephone encounter Note Formatting of this note might be differe nt from the original. freda Ramsay [facility] surgical patient Navigation & Financial Counseling Discussion Patient Communication: In office SURGEON: [] LANCE [] AD [x] MP [] TB [] LM PROCEDURE: [] LRYGB [x] LSG [] LYLE-S [] LYLE [] UNDECIDED [] REV: SPECIFY: Confirmed pt wants to continue with surgical program/plan [] YES [] NO (complete program withdrawal note/process) CO-MORBIDS: [] NONE [] DM [x]HTN [x] RUTH []GERD [] OTH: HL PRIVATE PAY: [x] NO []YES DATE OF INITIAL BENEFITS VERIFICATION: TRANSFER FU: [] YES [x] NO PRIMARY INSURANCE: Payor: Independent IP / Plan: Independent IP / Product Type: Commercial / BENEFIT ON PLAN: [x] NO [] YES BENEFIT MAX: [] NO [] YES -- BENEFIT MAX: $ EMPLOYER: DIET AND EXERCISE (DE) REQUIREMENT PRIMARY [] NONE []3M [] 6M []9M [] Medicare 4 Months [] SPR (3M) []OTHER: SECONDARY INSURANCE: YES - [facility] Medicare Advantage BENEFIT ON PLAN: [] NO [x] YES BENEFIT MAX: [] NO [] YES -- BENEFIT MAX: $ AUTH REQUIRED FROM SECONDARY [] NO [] YES DIET AND EXERCISE REQUIREMENT SECONDARY [] NONE [x]3M [] 6M [] Medicare 4 months [] SPR (3M) []OTHER: ___ [x] Discussed with patient: Financial cost overview (document signed and pt given copy at new pt consult visit with surgeon), Initial appointments: Bariatric Nutrition Assessment (BNA) & Diet and Exercise (DE) Patient to look for yellow envelope in mail. This yellow envelope will contain orders for labs, testing and required clearances. Pt encouraged to complete early in program to prevent delays. Encourage blood work to be draw by 1st DE appointment. [x] Reviewed OOP cost, including: [x] Overview of inpatient admission benefits - estimated inpatient co-pays, deductibles and/or co-insurance - Estimated OOP costs form reviewed with patient, and copy given to patient at new pt visit. [x] Reviewed next steps with patient: 1) Scheduled at new pt surgeon visit: [facility] (RD) for a Nutrition Assessment (BNA) and Pre-operative Diet and Exercise (DE) appointment #1. [x] Patient reminded to arrive 15 minutes early for check in. Late arrivals may need to be rescheduled. 2) Schedule: Diet and Exercise Apt #2 only scheduled after initial BNA and DE completed, 3) Behavioral Health apt scheduled after DE started. Reviewed rational and goal of Behavioral Health appointments. 4) [x] Reinforced need to cancel any WMI appointments 48 hours in advance. Cautioned NS/Same day cancellations may result in delay in program or program completion hold. Noted: DE series needs to be a monthly series or insurance company may require repeat of the entire series. 5) [] Smoker/tobacco products including vaping: reviewed need for cessation before surgery clearance and life long abstinence after surgery for best outcomes. Patient navigation to surgery: [] Explained to patient that average time from initial consult to date of surgery can be 6-8 months. - Process can take longer if there are cancelled appointments, delays in testing and/or additional clearances that needs to be completed. - Reviewed importance of patient active engagement in making and keeping appointments to keep the process moving. - Reinforced need to cancel appointments at least 48 hours in advance. Reviewed that instances of No Shows and Same Day Appointment Cancellations may result in program/surgery delay or hold. [x] Patient advised of importance of having voicemail and MyChart for office communications and lab/testing results before and after surgery. [facility] 07-28-2022 Note BARIATRIC AND METABO LIC SURGERY [facility] INITIAL EVALUATION - HISTORY AND PHYSICAL 07/28/2022 PATIENT: Roxy Llamas DATE OF : 1955 HISTORY OF PRESENT ILLNESS Chief Complaint: Morbid Obesity and associated comorbid conditions. Roxy Llamas is a 67 y.o. female with morbid obesity and associated comorbid conditions who [facility] for bariatric surgery. The patient stands Height: 5' 2.25 (158.1 cm) ([facility] HGT CHK) tall with a weight of Weight: 249 lb 9.6 oz (113 kg) , and has a BMI of Body mass index is 45.29 kg/m?.. The patient has failed multiple attempts at non-surgical weight loss, and is now seeking surgical intervention to promote permanent and consistent weight loss. The patient suffers from multiple co-morbidities as a result of morbid obesity as outlined in the past medical history. The patient denies a history of myocardia infarction, pulmonary embolism, renal failure, hepatic failure, stroke, and seizure. Has hx of DVT in leg. Hx of brain aneurysm. Repaired with clasp (2014). Pt was told to avoid blood thinners. Will check with Dr. Amaral. She does not smoke, and does not drink alcohol. Review of Systems Constitutional: Negative for chills, fatigue and fever. HENT: Negative. Negative for trouble swallowing. Eyes: Negative. Respiratory: Negative for chest tightness, shortness of breath and wheezing. Cardiovascular: Negative for chest pain and leg swelling. Gastrointestinal: Negative for abdominal pain, blood in stool, constipation, diarrhea, nausea and vomiting. Endocrine: Negative. Genitourinary: Negative. Musculoskeletal: Positive for arthralgias and back pain. Skin: Negative. Allergic/Immunologic: Negative. Neurological: Negative. Negative for dizziness and light-headedness. Hematological: Negative. Psychiatric/Behavioral: Negative. The patient is not nervous/anxious. Follows with Cardiology. Hx of Afib. Has appointment 08/06. Dr. Dotson Used to take Protonix last summer 2021 for GERD. Does not take anymore and has no symptoms. Naproxen for joint pain (knees and shoulder). PAST HISTORIES Past Medical History: Diagnosis Date Arthritis Asthma Difficulty sleeping Fatigue History of UTI HTN (hypertension) Hx of blood clots Joint pain, knee Memory difficulties Morbid obesity, unspecified obesity type (HCC) 07/23/2022 Snoring SOBOE (shortness of breath on exertion) Past Surgical History: Procedure Laterality Date APPENDECTOMY 1977 [facility] CHOLECYSTECTOMY 1977 [facility] INTRACRANIAL ANEURYSM REPAIR 2016 [facility] - Dr Vallecillo KNEE SURGERY 2019 [facility] SHOULDER SURGERY 2014 Babatunde Reyes Family History Problem Relation Name Age of Onset Stroke Mother Hyperlipidemia Mother Diabetes Mother Obesity Mother Heart disease Father Hyperlipidemia Father Hyperlipidemia Sister Diabetes Sister Obesity Sister Diabetes Brother Obesity Brother Social History Tobacco Use Smoking status: Former Types: Cigarettes Smokeless tobacco: Never Tobacco comments: Quit more than 20 years ago Substance Use Topics Alcohol use: Not Currently Allergies Allergen Reactions Lisinopril Swelling Tongue swells up Oxycodone-Acetaminophen Itching Latex Rash PHYSICAL EXAM BP (!) 147/84 Pulse 79 Temp 36.2 ?C (97.1 ?F) Resp 18 Ht 5' 2.25 (1.581 m) Comment: [facility] HGT CHK Wt 249 lb 9.6 oz (113 kg) BMI 45.29 kg/m? General: This patient is awake, alert, and oriented, with normal affect and is in no apparent distress. Cardiac: Regular rate and rhythm without evidence of murmur. Respiratory: Clear to auscultation bilaterally with normal effort. Abdomen: Obese, soft, non-tender, non-distended without masses/ No evidence of abdominal hernia / Incisions consistent with previous surgeries. Head and Neck: Obese, normocephalic and atraumatic/soft and supple, no lymphadenopathy or obvious bruits. No thyroidmegaly. Extremities: No cyanosis, clubbing or edema/ No calf tenderness/No restrictions of movement, is ambulatory without assistance. Neurological: Intact x 4 extremities, normal sensation, no focal deficits notes. Skin: Skin cool, warm and dry. No rashes or lesions noted. Rectal: Deferred LABORATORY STUDIES AND IMAGING Laboratory Studies: No results for input(s): NA, K, CL, CO2, BUN, CREATININE, GLUCOSE, CALCIUM in the last 72 hours. No results for input(s): WBC, RBC, HGB, HCT, MCV, MCH, MCHC, RDW, PLT, MPV in the last 72 hours. No results for input(s): ALKPHOS, ALT, AST, PROT, BILITOT, BILIDIR, LIPASE in the last 72 hours. No lab exists for component: [facility]AL[facility] Imaging Studies: ASSESSMENT Based on today's evaluation, the patient is a candidate for Laparoscopic Sleeve Gastrectomy (more content not included)... [facility] 02-20-2022 Hospital Discharge instructions Patient Education 02/20/2022 11:43:01 Muscle Spasm Muscle Spasm A muscle spasm (also called a cramp) is an involuntary muscle contraction. The muscle tightens quickly and strongly. A hard lump may form in the muscle. Muscle spasms are very painful. Here's how to treat and prevent muscle spasms. What causes muscles to spasm? Often, the cause of a muscle spasm is not known. Muscle spasm is due to irritation of muscle fibers. Some things can make a muscle spasm more likely. These include: Injury Heavy exercise Overtired muscles A muscle held in one position for a long time Dehydration Low levels of certain minerals in the body Certain medicines, such as diuretics or water pills Certain medical conditions, such as kidney failure or diabetes Stopping a muscle spasm Muscle spasms often come and go quickly. When a muscle goes into spasm, very gently stretch and massage the muscle. This may help calm the muscle fibers. Then rest the muscle. Preventing muscle spasms Although there is little or no evidence that staying hydrated, taking certain vitamins or minerals, or stretching works to prevent cramps, these measures may help and have other benefits. Talk to your healthcare provider about steps to take to prevent muscle spasms. Try to: Drink enough fluids to prevent dehydration, especially when you exercise. Take vitamin or mineral supplements. Get regular exercise. Stretch regularly, especially before exercise. Limit caffeine and smoking. Take a prescription muscle relaxant. When to call your doctor Call your doctor if you have any of the following: Severe cramping Cramping that lasts a long time, does not go away with stretching, or keeps coming back Pain, tingling, or weakness in the arms or legs Pain that wakes you up at night [id number] [employer]. [address] [place] [address]. All rights reserved. This information is not intended as a substitute for professional medical care. Always follow your healthcare professional's instructions. Follow Up Care 02/20/2022 10:04:21 With:ÁNGEL PIERRE MD Address: [facility] [address] [place] [address] [address] [place] [id number]- When:2-4 days [facility] 02-20-2022 Note Discharge Instructions Thank you for allowing [facility] to assist you with your healthcare needs. The following is important discharge information regarding your hospital visit. Diagnosis from Today's Visit Cramp of muscle of both lower limbs Leg pain-swelling What to Do Next Instructions from Your Care Team No qualifying data available. Post Acute Orders No qualifying data available. You Need to Schedule the Following Appointments Follow Up with ÁNGEL PIERRE MD When Within 2-4 days Where: [facility] [address] [place] [address]- Allergies lisinopril Percocet 7.5/325 Latex (Hives) Percocet 5/325 (Unknown) Medications Please ask your primary doctor or pharmacist before taking any other medication not listed, including over the counter drugs, herbal medications, vitamins and or supplements as they may interact with your home medications. What How Much When Instructions Last Dose Unchanged acetaminophen (Tylenol 325 mg oral capsule) 650 Milligram by mouth Four (4) times a day as needed for as needed for pain Unchanged albuterol (albuterol MDI (90 mcg/ inh) [facility] free inhalation aerosol) 2 puff(s) by inhalation Four (4) times a day Unchanged amLODIPine (amLODIPine 2.5 mg oral tablet) 1 tab(s) by mouth Once a day Unchanged atorvastatin (atorvastatin 80 mg oral tablet) 1 tab(s) by mouth Once a day Unchanged carvedilol (carvedilol 12.5 mg oral tablet) 1 tab(s) by mouth Two (2) times a day Unchanged cholecalciferol (Vitamin D3) 1,000 unit(s) by mouth Every day Unchanged cyanocobalamin (cyanocobalamin 1000 mcg oral tablet) 2 tab(s) by mouth Once a day Unchanged ferrous sulfate (ferrous sulfate 325 mg (65 mg elemental iron) oral delayed release tablet) 1 tab(s) by mouth Once a day Unchanged hydrALAZINE (hydrALAZINE 25 mg oral tablet) 2 tab(s) by mouth Three (3) times a day Unchanged magnesium oxide (magnesium oxide 500 mg oral tablet) 1 tab(s) by mouth Once a day Unchanged zinc sulfate (Zinc) See instructions 1 daily Please take this list to your next doctor s visit. Bring all medications you take, including over the counter medications, herbals and other supplements with you to your doctor s visit. Patients and families are reminded to discard old lists and to update any records with all medication providers or retail pharmacies. Education Materials Muscle Spasm A muscle spasm (also called a cramp) is an involuntary muscle contraction. The muscle tightens quickly and strongly. A hard lump may form in the muscle. Muscle spasms are very painful. Here's how to treat and prevent muscle spasms. What causes muscles to spasm? Often, the cause of a muscle spasm is not known. Muscle spasm is due to irritation of muscle fibers. Some things can make a muscle spasm more likely. These include: Injury Heavy exercise Overtired muscles A muscle held in one position for a long time Dehydration Low levels of certain minerals in the body Certain medicines, such as diuretics or water pills Certain medical conditions, such as kidney failure or diabetes Stopping a muscle spasm Muscle spasms often come and go quickly. When a muscle goes into spasm, very gently stretch and massage the muscle. This may help calm the muscle fibers. Then rest the muscle. Preventing muscle spasms Although there is little or no evidence that staying hydrated, taking certain vitamins or minerals, or stretching works to prevent cramps, these measures may help and have other benefits. Talk to your healthcare provider about steps to take to prevent muscle spasms. Try to: Drink enough fluids to prevent dehydration, especially when you exercise. Take vitamin or mineral supplements. Get regular exercise. Stretch regularly, especially before exercise. Limit caffeine and smoking. Take a prescription muscle relaxant. When to call your doctor Call your doctor if you have any of the following: Severe cramping Cramping that lasts a long time, does not go away with stretching, or keeps coming back Pain, tingling, or weakness in the arms or legs Pain that wakes you up at night [phone] [employer]. [address] [place] [address]. All rights reserved. This information is not intended as a substitute for professional medical care. Always follow your healthcare professional's instructions. Additional Information VACCINATE! IT SAVES LIVES! Members of the community who have not yet received the COVID-19 vaccine and would like to receive it can visit one of [facility] vaccine clinics. There are many vaccine clinic locations within the [facility]. For locations and available times, please visit [email or web address]. It is important to note that some COVID mobile vaccine clinics are held outdoors and may be canceled in rainy or stormy conditions. To learn more about pediatric vaccinations (ages 5-11), we invite you to visit the [facility] webpage. [email or web address] [email or web address] To learn more about the COVID-19 vaccine, we invite you to visit the [facility] website for a list of frequently asked questions. [email or web address] [facility] [employer] Patient Portal Access Instructions: Stay connected with your healthcare team and access your personal medical information anytime with the [facility] Patient Portal. If you would like a full copy of your medical records please contact the [facility] Medical Records Department Thursday through Thursday between 8a.m. and 4:30p.m. Please follow the directions below to access the portal: 1.Access the email account you provided upon registration to the [facility].2.Look for an invitation email from [facility].3.Open the email and access the invitation link: Accept Invitation to [facility]4.Fill in the required cohen to create your account. Sign into [email or web address] with your username and password that you created in the above steps to stay up to date. You can then view a summary of results, a summary of your visits, and the ability to download your summaries to your computer or send the information securely to a physician. Remember that your healthcare information is confidential, so carefully consider who you will allow to register on the [facility] Patient Portal for access to your information. You can also access the [facility] Patient Portal on the [employer]. Simply click on Health Records under Health Data and then click on the [facility] logo. HOW TO SAFELY DISPOSE OF PRESCRIPTION MEDICATIONS Please use one of the following methods to safely dispose of your unused medications. 1.Use a drug disposal kit: the drug disposal pouch allows you to safely discard your old and unused drugs. Ask your nurse to give you one when you are discharged.2.Visit a local take-back location: Many local pharmacies and police departments have programs that collect old and unwanted prescription drugs. Call your local pharmacy or go to http://Tray.ly/7G4Tv9k to find one close to you.3.Make use of household items: Use cat litter or old coffee grounds to dispose medications if other options are not available. Mix your drugs with these household products, seal them in an airtight container and throw it into the garbage. Call [facility]: [phone] to be sure your drugs can be disposed of in this way. Some medicines may require a different approach.4.Never flush your medications down the toilet. IF YOU HAVE BEEN PRESCRIBED AN OPIOIDS FOR PAIN If you have been prescribed an opioid (such as hydrocodone, oxycodone or morphine), it is critical to understand the possible side effects and risks of opioid pain medications. Even when taken as directed, opioids can have several side effects including: Tolerance, meaning you might need to take more of a medication for the same pain relief. Nausea, vomiting and/or constipation. Sleepiness, dizziness, dry mouth, confusion, depression or itching. Physical dependence, meaning you have withdrawal symptoms when a medication is stopped ? this can develop within a few days. KNOW YOUR RESPONSIBILITIES It is important to know exactly how much and how often to take the opioid pain medications you are prescribed. Never take opioids in higher amounts or more often than prescribed. Do not combine opioids with alcohol or other drugs that cause drowsiness, such as benzodiazepines, also known as benzos, including diazepam and alprazolam, muscle relaxants or sleep aids. Never sell or share prescription opioids. This is illegal. Store opioids in a secure place and out of reach of others (including children, family, friends and visitors). The last page(s) of this document has been signed and retained as a CHART COPY Signatures Patient Education Materials Muscle Spasm Medication Leaflets My discharge plan and instructions have been reviewed and explained to me and IJESUS CHARLOTTE understand my current condition and have read and understand these discharge instructions. I have received a written copy of the plan/instructions. If I have questions, I am aware that I should contact my doctor. Patient/Oxygen Tank Filler Signature: Date/Time: Relationship to Patient: Witness Name/Signature: Date/Time: [facility] 02-13-2022 Hospital Discharge instructions Patient Education 02/13/2022 10:57:24 LACERATION, All Laceration (All Closures) A laceration is a cut through the skin. This will usually require stitches (sutures) or nikolai if it is deep. Minor cuts may be treated with a surgical tape closure or skin glue. Home care The following guidelines will help you care for your laceration at home: Extremity, face, or trunk wounds Keep the wound clean and dry. If a bandage was applied and it becomes wet or dirty, replace it. Otherwise, leave it in place for the first 24 hours. If stitches or nikolai were used, clean the wound daily. After removing the bandage, wash the area with soap and water. Use a wet cotton swab to loosen and remove any blood or crust that forms. The doctor may prescribe an antibiotic cream or ointment to prevent infection. Do not stop taking this medication until you have finished the prescribed course or the doctor tells you to stop. The doctor may also prescribe medications for pain. Follow the doctor s instructions for taking these medications. You may remove the bandage to shower as usual after the first 24 hours, but do not soak the area in water (no swimming) until the stitches or nikolai are removed. If surgical tape was used, keep the area clean and dry. If it becomes wet, blot it dry with a towel. If skin glue was used, do not scratch, rub, or pick at the adhesive film. Do not place tape directly over the film. Do not apply liquid, ointment, or creams to the wound while the film is in place. Do not clean the wound with peroxide and do not apply ointments. Avoid activities that cause heavy sweating until the film has fallen off. Protect the wound from prolonged exposure to sunlight or tanning lamps. You may shower as usual but do not soak the wound in water (no baths or swimming). The film will fall off by itself in 5 10 days. Scalp wounds During the first two days, you may carefully rinse your hair in the shower to remove blood, glass or dirt particles. After two days, you may shower and shampoo your hair normally. Do not soak your scalp in the tub or go swimming until the stitches or nikolai have been removed. Talk with your doctor before applying any antibiotic ointment to the wound. Mouth wounds Eat soft foods to reduce pain. If the cut is inside of your mouth, clean by rinsing after each meal and at bedtime with a mixture of equal parts water and hydrogen peroxide (do not swallow!). Or, you can use a cotton swab to directly apply hydrogen peroxide onto the cut. Mouth wounds can be painful when eating. You may use an vytq-mki-tauidvu local numbing solution for pain relief. If this is not available, you may use any numbing solution for teething babies. You may apply this directly to the sores with a cotton-tip swab or with your finger. Follow-up care Follow up with your health care provider. Most skin wounds heal within ten days. Mouth and facial wounds heal within five days. However, even with proper treatment, a wound infection may sometimes occur. Therefore, you should check the wound daily for signs of infection listed below. Stitches should be removed from the face within five days; stitches and nikolai should be removed from other parts of the body within 7 14 days. If dissolving stitches were used in the mouth, these will fall out or dissolve without the need for removal. If tape closures were used, remove them yourself if they have not fallen off after 7 days. If skin glue was used, the film will fall off by itself in 5 10 days. When to seek medical advice Call your health care provider right away if any of these occur: Bleeding not controlled by direct pressure Signs of infection, including increasing pain in the wound, increasing wound redness or swelling, or pus coming from the wound Fever of 100.4 F (38 C) or higher, or as directed by your health care provider Stitches or nikolai come apart or fall out or surgical tape falls off before 7 days Wound edges re-open 7507-5890 [employer]. [address] [place] [address], [place] [id number]. All rights reserved. This information is not intended as a substitute for professional medical care. Always follow your healthcare professional's instructions. Follow Up Care 02/13/2022 10:07:40 With:ÁNGEL PIERRE MD Address: [facility] [place] [address] [place] [address]- When:5 to 7 days [facility] 02-13-2022 Emergency department Discharge summary Discharge Instructions Thank you for allowing [facility] to assist you with your healthcare needs. The following is important discharge information regarding your hospital visit. Diagnosis from Today's Visit Laceration of finger Laceration of finger What to Do Next Instructions from Your Care Team No qualifying data available. Post Acute Orders No qualifying data available. You Need to Schedule the Following Appointments Follow Up with ÁNGEL PIERRE MD When Within 5 to 7 days Where: [facility] [address] [place] [address]- Allergies lisinopril Percocet 7.5/325 Latex (Hives) Percocet 5/325 (Unknown) Medications Please ask your primary doctor or pharmacist before taking any other medication not listed, including over the counter drugs, herbal medications, vitamins and or supplements as they may interact with your home medications. What How Much When Instructions Last Dose Unchanged acetaminophen (Tylenol 325 mg oral capsule) 650 Milligram by mouth Four (4) times a day as needed for as needed for pain Unchanged albuterol (albuterol MDI (90 mcg/ inh) CFC free inhalation aerosol) 2 puff(s) by inhalation Four (4) times a day Unchanged amLODIPine (amLODIPine 2.5 mg oral tablet) 1 tab(s) by mouth Once a day Unchanged atorvastatin (atorvastatin 80 mg oral tablet) 1 tab(s) by mouth Once a day Unchanged carvedilol (carvedilol 12.5 mg oral tablet) 1 tab(s) by mouth Two (2) times a day Unchanged cholecalciferol (Vitamin D3) 1,000 unit(s) by mouth Every day Unchanged cyanocobalamin (cyanocobalamin 1000 mcg oral tablet) 2 tab(s) by mouth Once a day Unchanged ferrous sulfate (ferrous sulfate 325 mg (65 mg elemental iron) oral delayed release tablet) 1 tab(s) by mouth Once a day Unchanged hydrALAZINE (hydrALAZINE 25 mg oral tablet) 2 tab(s) by mouth Three (3) times a day Unchanged magnesium oxide (magnesium oxide 500 mg oral tablet) 1 tab(s) by mouth Once a day Unchanged zinc sulfate (Zinc) See instructions 1 daily Please take this list to your next doctor s visit. Bring all medications you take, including over the counter medications, herbals and other supplements with you to your doctor s visit. Patients and families are reminded to discard old lists and to update any records with all medication providers or retail pharmacies. Education Materials Laceration (All Closures) A laceration is a cut through the skin. This will usually require stitches (sutures) or nikolai if it is deep. Minor cuts may be treated with a surgical tape closure or skin glue. Home care The following guidelines will help you care for your laceration at home: Extremity, face, or trunk wounds Keep the wound clean and dry. If a bandage was applied and it becomes wet or dirty, replace it. Otherwise, leave it in place for the first 24 hours. If stitches or nikolai were used, clean the wound daily. After removing the bandage, wash the area with soap and water. Use a wet cotton swab to loosen and remove any blood or crust that forms. The doctor may prescribe an antibiotic cream or ointment to prevent infection. Do not stop taking this medication until you have finished the prescribed course or the doctor tells you to stop. The doctor may also prescribe medications for pain. Follow the doctor s instructions for taking these medications. You may remove the bandage to shower as usual after the first 24 hours, but do not soak the area in water (no swimming) until the stitches or nikolai are removed. If surgical tape was used, keep the area clean and dry. If it becomes wet, blot it dry with a towel. If skin glue was used, do not scratch, rub, or pick at the adhesive film. Do not place tape directly over the film. Do not apply liquid, ointment, or creams to the wound while the film is in place. Do not clean the wound with peroxide and do not apply ointments. Avoid activities that cause heavy sweating until the film has fallen off. Protect the wound from prolonged exposure to sunlight or tanning lamps. You may shower as usual but do not soak the wound in water (no baths or swimming). The film will fall off by itself in 5 10 days. Scalp wounds During the first two days, you may carefully rinse your hair in the shower to remove blood, glass or dirt particles. After two days, you may shower and shampoo your hair normally. Do not soak your scalp in the tub or go swimming until the stitches or nikolai have been removed. Talk with your doctor before applying any antibiotic ointment to the wound. Mouth wounds Eat soft foods to reduce pain. If the cut is inside of your mouth, clean by rinsing after each meal and at bedtime with a mixture of equal parts water and hydrogen peroxide (do not swallow!). Or, you can use a cotton swab to directly apply hydrogen peroxide onto the cut. Mouth wounds can be painful when eating. You may use an ruwo-wol-llmbdrl local numbing solution for pain relief. If this is not available, you may use any numbing solution for teething babies. You may apply this directly to the sores with a cotton-tip swab or with your finger. Follow-up care Follow up with your health care provider. Most skin wounds heal within ten days. Mouth and facial wounds heal within five days. However, even with proper treatment, a wound infection may sometimes occur. Therefore, you should check the wound daily for signs of infection listed below. Stitches should be removed from the face within five days; stitches and nikolai should be removed from other parts of the body within 7 14 days. If dissolving stitches were used in the mouth, these will fall out or dissolve without the need for removal. If tape closures were used, remove them yourself if they have not fallen off after 7 days. If skin glue was used, the film will fall off by itself in 5 10 days. When to seek medical advice Call your health care provider right away if any of these occur: Bleeding not controlled by direct pressure Signs of infection, including increasing pain in the wound, increasing wound redness or swelling, or pus coming from the wound Fever of 100.4 F (38 C) or higher, or as directed by your health care provider Stitches or nikolai come apart or fall out or surgical tape falls off before 7 days Wound edges re-open [phone] [employer] [address] [place] [address], [place] [address]. All rights reserved. This information is not intended as a substitute for professional medical care. Always follow your healthcare professional's instructions. Additional Information VACCINATE! IT SAVES LIVES! Members of the community who have not yet received the COVID-19 vaccine and would like to receive it can visit one of [facility] vaccine clinics. There are many vaccine clinic locations within the [facility]. For locations and available times, please visit [email or web address]. It is important to note that some COVID mobile vaccine clinics are held outdoors and may be canceled in rainy or stormy conditions. To learn more about pediatric vaccinations (ages 5-11), we invite you to visit the [facility] webpage. [email or web address] [email or web address] To learn more about the COVID-19 vaccine, we invite you to visit the [facility] website for a list of frequently asked questions. [email or web address] [facility] Patient Portal Access Instructions: Stay connected with your healthcare team and access your personal medical information anytime with the [facility] Patient Portal. If you would like a full copy of your medical records please contact the [facility] Medical Records Department Thursday through Thursday between 8a.m. and 4:30p.m. Please follow the directions below to access the portal: 1.Access the email account you provided upon registration to the hospital.2.Look for an invitation email from [facility].3.Open the email and access the invitation link: Accept Invitation to [facility]4.Fill in the required cohen to create your account. Sign into [email or web address] with your username and password that you created in the above steps to stay up to date. You can then view a summary of results, a summary of your visits, and the ability to download your summaries to your computer or send the information securely to a physician. Remember that your healthcare information is confidential, so carefully consider who you will allow to register on the [facility] Patient Portal for access to your information. You can also access the [facility] Patient Portal on the [employer] beulah. Simply click on Health Records under Health Data and then click on the [facility] logo. HOW TO SAFELY DISPOSE OF PRESCRIPTION MEDICATIONS Please use one of the following methods to safely dispose of your unused medications. 1.Use a drug disposal kit: the drug disposal pouch allows you to safely discard your old and unused drugs. Ask your nurse to give you one when you are discharged.2.Visit a local take-back location: Many local pharmacies and police departments have programs that collect old and unwanted prescription drugs. Call your local pharmacy or go to http://Tray.YOLLEGE/7G3Kz5z to find one close to you.3.Make use of household items: Use cat litter or old coffee grounds to dispose medications if other options are not available. Mix your drugs with these household products, seal them in an airtight container and throw it into the garbage. Call [facility]: [phone] to be sure your drugs can be disposed of in this way. Some medicines may require a different approach.4.Never flush your medications down the toilet. IF YOU HAVE BEEN PRESCRIBED AN OPIOIDS FOR PAIN If you have been prescribed an opioid (such as hydrocodone, oxycodone or morphine), it is critical to understand the possible side effects and risks of opioid pain medications. Even when taken as directed, opioids can have several side effects including: Tolerance, meaning you might need to take more of a medication for the same pain relief. Nausea, vomiting and/or constipation. Sleepiness, dizziness, dry mouth, confusion, depression or itching. Physical dependence, meaning you have withdrawal symptoms when a medication is stopped ? this can develop within a few days. KNOW YOUR RESPONSIBILITIES It is important to know exactly how much and how often to take the opioid pain medications you are prescribed. Never take opioids in higher amounts or more often than prescribed. Do not combine opioids with alcohol or other drugs that cause drowsiness, such as benzodiazepines, also known as benzos, including diazepam and alprazolam, muscle relaxants or sleep aids. Never sell or share prescription opioids. This is illegal. Store opioids in a secure place and out of reach of others (including children, family, friends and visitors). The last page(s) of this document has been signed and retained as a CHART COPY Signatures Patient Education Materials LACERATION, All Medication Leaflets My discharge plan and instructions have been reviewed and explained to me and I,ROXY LLAMAS understand my current condition and have read and understand these discharge instructions. I have received a written copy of the plan/instructions. If I have questions, I am aware that I should contact my doctor. Patient/Oxygen Tank Filler Signature: Date/Time: Relationship to Patient: Witness Name/Signature: Date/Time: [facility] 09-05-2020 History of Present illness Narrative DATE OF SERVICE: 09/05/2020 CHIEF COMPLAINT: Viral knee, hand pain. HISTORY OF PRESENT ILLNESS: Patient is a 65-year-old female who is presenting today for knee pain, shoulder pain after a fall. She states that she fell 2 days ago on ice. She was walking out to her car in order to go to work, and she slipped and fell onto her front. Ever since, she has had knee pain and also some shoulder pain. She has had orthopedic surgeries on both the right shoulder and right knee, and she has been taking zklr-rnt-ruebsypr to try to help with the pain, however this has not helped too much, so she wanted to come in today to be evaluated. PAST MEDICAL HISTORY: Asthma, high blood pressure, frequent headaches. PAST SURGICAL HISTORY: Abdominal, orthopedic. CURRENT MEDICATIONS: Reviewed and considered. ALLERGIES: To LISINOPRIL, PERCOCET, and LATEX. SOCIAL HISTORY: Denies alcohol and tobacco use. REVIEW OF SYSTEMS: General: Denies fevers, chills, body aches. Respiratory: Denies cough, wheezing, shortness of breath. Cardiovascular: Denies dyspnea, chest pain, palpitations. Musculoskeletal: admits to knee pain, shoulder pain. Denies joint stiffness, swelling, loss of function. PHYSICAL EXAMINATION: Vital Signs: Blood pressure 190/89, pulse 64, respiration rate 18, temperature 97.7, pulse oximetry on room air 98%. General: Patient is alert and oriented x3. Appears to be in no acute distress. Respiratory: Normal breath sounds heard in all lung cohen. No wheezing, rhonchi, or rales present. Cardiac: Examination reveals there is a holosystolic murmur present at the right sternal border. Otherwise, no murmurs noted. Regular rate and rhythm. This is an old murmur. Patient has had it for a while. Musculoskeletal: No tenderness to palpation cervical, thoracic, or lumbar spine. There is slight tenderness into the trapezius muscles on both the right and left sides of the shoulders. No pain to the clavicles bilaterally. No pain or tenderness into the humeral headaches or humeral shafts. Patient has full range of motion of the shoulders, but this did reproduce pain. Strength testing of upper extremity was neurology professor was 5/5 bilaterally. Normal nerve sensation. There is tenderness and pain to palpation of the bilateral knees. There is a contusion present on the left knee. This is the main area and source of the pain. Pain was reproduced with flexion and extension in valgus and varus stretch of the knee. Strength testing of the lower extremities was 5/5 bilaterally. Negative Lachmans and anterior and posterior drawer test bilaterally. Good dorsalis pedis pulses. TESTS: X-rays of the right shoulder and bilateral knees were done in office today. These were ready both by Dr. Marlen Cintron. As for the shoulder: No acute osseous abnormalities, but postsurgical changes and osteoarthritis present. For the knees: Her impression was no acute osseous abnormalities, osteoarthritis in the left knee. DAGNOSIS: Bilateral shoulder and knee pain from fall. PLAN: Patient is to rest and ice the area. I sent in Flexeril for the tension within her back, and she is to take that as directed. I did go over the side effects with her at this time, and I also sent in naproxen to try to help with pain, and if she is not improving she is to follow up with her primary care doctor. Patient agrees and understands the plan at this time. Patient was stable upon discharge from [facility]. JACY Betancourt/[id number] SSI File#: [id number] END OF DOCUMENT / CHANGE LOG FOLLOWS Last Edited By [employer]. Signed By Nikki Skelton PAC #[id number] Nikki Skelton PAC #[id number] on 09/05/2020 12:23 ET on 09/05/2020 12:23 ET Revision Number - 2 ^^^ Verified/Reviewed by 09/05/20 1223 EV1 [facility] PATIENT NAME: ROXY LLAMAS [address] [place] [address] Dr. Pérez MEDICAL REC #: [id number] [place] [address] [facility] PHYSICIAN documented in this encounter [facility] documented as of this encounter (statuses as of 12/17/2021) [facility]11-09-2013 History of Past illness Narrative* Problem Noted Date Diagnosed Date Resolved Date Rotator cuff disorder 05/21/20132018 H/O Pulmonary embolism 12/13/201204/16 Last Assessment & Plan: Assessment: Dx in 2012; unsure of cause. No history of DVT. Arthritis of knee, left 10/21/201210/11 Right shoulder injury 10/21/20122018 Type II or unspecified type diabetes mellitus with renal manifestations, not stated as uncontrolled(250.40) 10/21/2012 10/20/2018 documented as of this encounter (statuses as of 04/18/2023) [facility] History of Past illness Narrative* Problem Noted Date Diagnosed Date Resolved Date Rotator cuff disorder 05/21/20132018 H/O Pulmonary embolism 12/13/201204/16 Last Assessment & Plan: Assessment: Dx in 2012; unsure of cause. No history of DVT. Arthritis of knee, left 10/21/201210/11 Right shoulder injury 10/21/20122018 Type II or unspecified type diabetes mellitus with renal manifestations, not stated as uncontrolled(250.40) 10/21/2012 10/20/2018 documented as of this encounter (statuses as of 05/30/2023) [facility] No data available for this section [facility] Evaluation note* Diagnosis Primary hypertension- Primary Unspecified essential hypertension Morbid obesity, unspecified obesity type (HCC) [facility]* Diagnosis Incontinence of feces, unspecified fecal incontinence type- Primary Encounter for medical examination to establish care Hypertension, unspecified type Asthma, unspecified asthma severity, unspecified whether complicated, unspecified whether persistent Hyperlipidemia with target low density lipoprotein (LDL) cholesterol less than 100 mg/dL Atrial fibrillation, unspecified type (HCC) Morbidly obese (HCC) Morbid obesity Frequent UTI Urinary tract infection, site not specified Vitamin D deficiency Unspecified vitamin D deficiency Hx of diabetes mellitus Personal history of other endocrine, metabolic, and immunity disorders Encounter for immunization Need for other specified prophylactic vaccination against single bacterial disease Encounter for screening mammogram for malignant neoplasm of breast Other screening mammogram Screening for thyroid disorder Encounter for hepatitis C screening test for low risk patient [facility] Heel spur, right [facility] Consultation (Elective) - Pending Review Specialty Diagnoses / Procedures Referred By Bob meadows Referred To Contact Cardiology Diagnoses Primary hypertension Morbid obesity, unspecified obesity type (HCC) Procedures ND OFFICE/OUTPATIENT NEW HIGH MDM 60-74 MINUTES Nancy Amaral DO [address] [place] [address] [facility] [address] [place] [address] Referral ID Status Reason Start Date Expiration Date Visits Requested Visits Authorized [id number] Pending Review Specialty Services Required 08/25/2022 08/25/2023 1 1 [facility] for referral (narrative)* Outpatient Procedure (Routine) - Pending Review Specialty Diagnoses / Procedures Referred By Contac t Referred To Contact [facility] Diagnoses Asthma, unspecified asthma severity, unspecified whether complicated, unspecified whether persistent Procedures SPIROMETRY - BASELINE AND POST DILATOR BRNCDILAT RSPSE SPMTRY PRE&POST-BRNCDILAT ADMN Moises Malcolm APRN.[facility] PHYSICIAN [address] [place] [address] [facility] [place] [address] [place] [address] Referral ID Status Reason Start Date Expiration Date Visits Requested Visits Authorized [id number] Pending Review Auto-Generat ed Referral 04/16/2023 05/15/2024 1 1 * Consult, Test, Treat (Routine) - Pending Review Specialty Diagnoses / Procedures Referred By Contac t Referred To Contact Diagnoses Frequent UTI Procedures CONSULT TO UROLOGY OFFICE/OUTPATIENT NEW HIGH MDM 60-74 MINUTES Moises Malcolm, FORMULATOR.[facility] PHYSICIAN [address] [place] [address] Betty Dominguez [address] [place] [address] Referral ID Status Reason Start Date Expiration Date Visits Requested Visits Authorized [id number] Pending Review PCP Requested Referral 04/16/2023 04/15/2024 1 1 * Consult, Test, Treat (Routine) - Pending Review Specialty Diagnoses / Procedures Referred By Contac t Referred To Contact Diagnoses Incontinence of feces, unspecified fecal incontinence type Procedures CONSULT TO GASTROENTEROLOGY OFFICE/OUTPATIENT [facility] 60-74 MINUTES Moisse Malcolm, FORMULATOR.[facility] PHYSICIAN [address] [place] [address] Friend, Anshul B, DO [address] [address] Referral ID Status Reason Start Date Expiration Date Visits Requested Visits Authorized [id number] Pending Review PCP Requested Referral 04/16/2023 04/15/2024 1 1 * Diagnostic Procedure Only (Routine) - Pending Review Specialty Diagnoses / Procedures Referred By Contac t Referred To Contact [facility] Diagnoses Encounter for screening mammogram for malignant neoplasm of breast Procedures [place] SCREENING SCREENING MAMMOGRAPHY BI 2-VIEW BREAST INC CAD Moises Malcolm, FORMULATOR.[facility] PHYSICIAN [address] [place] [address] [facility] [address] [place] [address] Referral ID Status Reason Start Date Expiration Date Visits Requested Visits Authorized [id number] Pending Review Auto-Generat ed Referral 04/16/2023 05/15/2024 1 1 [facility] for visit Narrative* Diagnostic Procedure Only (Routine) - Closed Specialty Diagnoses / Procedures Referred By Contac t Referred To Contact XR IMAGING Diagnoses Heel spur, right Procedures XR FOOT GENERAL 3V AP/LAT/OBL RIGHT RADEX FOOT COMPLETE MINIMUM [address] [place] [place] [address] [place] [id number] Referral ID Status Reason Start Date Expiration Date V isits Requested Visits Authorized [id number] Closed Auto-Generate d Referral 05/27/2023 06/25/2024 1 1 [facility] Chief Complaint Chief Complaint Description Start Date left shoulder pain Preliminary chief co mplaint data, not yet signed by the author as of Instructions Instruction Description Start Date Patient advised to follow-up with Primary Care Physician for BMI management. Advance Directives No Advanced Directives Records FoundDocuments on File Type Date Recorded Patient Oxygen Tank Filler Expl anation Advance Directive(s) 10/26/2018 1:31 PM Latest Code Status on File Code Status Date Activated Date Inactivated Comments Full Code 10/27/2018 4:02 PM 10/28/2018 7:37 PM Full Code Order Discussed With: Patient Latest Code Status on File Code Status Date Activated Date Inactivated Comments Full Code 10/27/2018 4:02 PM 10/28/2018 7:37 PM Question Answer Comments Full Code Order Discussed With: Patient Assessments There may be information available, but it has not been provided by the sender. Review of System There may be information available, but it has not been provided by the sender. Family History There may be information available, but it has not been provided by the sender.No Family History Records FoundNo Family History Records FoundNo Family History Records FoundNo Family History Records FoundNo Family History Records FoundNo Family History Records Found History of Present Illness There may be information available, but it has not been provided by the sender. Summary Purpose Additional Source Comments Reason for Visit (unrecogniz ed section and content) Reason Onset Date Comments Financial File 202207/29/2022 Surgery Scheduling 07/29/2022 Initial Sched uling - Orders Pended Withdrawal 07/29/2022 Opted out of mel gical program Specialty Diagnoses / Procedures Referred By Bob t Referred To Contact INTERNAL MEDICINE Diagnoses wellness, est care Procedures wellness, est care Self [address] [place] [address] [address] [place] [address] Referral ID Status Reason Start Date Expiration Date Visits Requested Visits Authorized [id number] Outside PCP OON/Self Pay Override 03/27/2023 11/10/2023 1 5 INFORMATION SOURCE (unrecogn ized section and content) DATE CREATED AUTHOR AUTHOR'S ORGANIZ ATION 08/28/2021 [facility] DATE CREATED AUTHOR AUTHOR'S ORGANIZ ATION 04/20/2022 [facility] ([place]) DATE CREATED AUTHOR AUTHOR'S ORGANIZ ATION 10/14/[address] [facility] DATE CREATED AUTHOR AUTHOR'S ORGANIZ ATION 06/03/2023 [facility] DATE CREATED AUTHOR AUTHOR'S ORGANIZ ATION 07/21/2023 [facility] Source Comments (unrecognize d section and content) In the event this informatio n is protected by the Federal Confidentiality of Alcohol and Drug Abuse Patient Records regulations: The Federal rules restrict any use of the information to criminally investigate or prosecute any alcohol or drug abuse patient.[facility] the event this information is protected by the Federal Confidentiality of Alcohol and Drug Abuse Patient Records regulations: The Federal rules restrict any use of the information to criminally investigate or prosecute any alcohol or drug abuse patient.[facility] the event this information is protected by the Federal Confidentiality of Alcohol and Drug Abuse Patient Records regulations: The Federal rules restrict any use of the information to criminally investigate or prosecute any alcohol or drug abuse patient.[facility] Care Teams (unrecognized sec tion and content) Rn Clinical Resource Relationship Specialty Start Date End Date Agusto Elliott DO [address] [phone] PCP - General 06/05/20 Rn Clinical Resource Relationship Specialty Start Date End Date Moises Malcolm, FORMULATOR.[facility] PH[facility]ICIAN [address] [place] [address] PCP - General Internal Medicine 04/16/23 Rn Clinical Resource Relationship Specialty Start Date End Date Moises Malcolm, FORMULATOR.[facility] PH[facility]ICIAN [address] [place] [address] PCP - General Internal Medicine 04/16/23 Care Team (unrecognized sect ion and content) Care Team Personnel Name: ÁNGEL PIERRE MD Member Role: Primary Care Physician Address: Address: [facility] [place] [phone]- Care Team Related Persons Name: LUIS LLAMAS Care Team Personnel Name: ÁNGEL PIERRE MD Member Role: Primary Care Physician Address: Address: [facility] [place] [id number] Care Team Related Persons Name: LUIS LLAMAS FOR RECORDS PERTAINING TO PATIENTS WHO ARE OR HAVE BEEN ENROLLED IN A CHEMICAL DEPENDENCY/SUBSTANCEABUSE PROGRAM, SOME INFORMATION MAY BE OMITTED. This clinical summary was aggregated from multiple sources. Caution should be exercised in using it in the provision of clinical care. This summary normalizes information from multiple sources, and as a consequence, information in this document may materially change the coding, format and clinical context of patient data. In addition, data may be omitted in some cases. CLINICAL DECISIONS SHOULD BE BASED ON THE PRIMARY CLINICAL RECORDS. [employer] provides no warranty or guarantee of the accuracy or completeness of information in this document.
[2023-09-19 11:48] VITALS: BP 155/86; PULSE 78; RESP 16; TEMP 36.8; O2SAT 99
== END 2023-09-19 11:49 | disposition home or self-care (01) ==
PROVIDERS: Emergency Provider Emergency Medicine; Visit Provider Emergency Medicine
DX: S80.02XA Contusion of left knee, initial encounter (principal); E11.9 Type 2 diabetes mellitus without complications; G47.33 Obstructive sleep apnea (adult) (pediatric); W19.XXXA Unspecified fall, initial encounter; Z86.718 Personal history of other venous thrombosis and embolism; Z86.711 Personal history of pulmonary embolism
CPT/HCPCS: 73564; 99282

== ENCOUNTER 2024-03-13 10:41 | Emergency (ER) | payer BC, MEDICARE, SELFPAY ==
[2024-03-13] VITALS (9 sets, daily range): BP systolic 98–131; BP diastolic 60–78; PULSE 49–87; RESP 14–20; TEMP 36.2–36.6; O2SAT 96–99; BMI 31.6
--- NOTE | 2024-03-13 10:59 | RAD_ITS ---
INDICATION: CHEST PAIN EXAMINATION/TECHNIQUE: X-RAY - XR Chest 1 View COMPARISON: Prior study dated: 03/30/2023 FINDINGS: LINES/DEVICES: None. LUNGS: No consolidation, edema or effusion. No pneumothorax. MEDIASTINUM AND CARDIOVASCULAR STRUCTURES: Cardiac silhouette not enlarged. Central airways and mediastinal contour are unremarkable. BONES AND SOFT TISSUES: Partially visualized right shoulder intramedullary inessa is seen. Degenerative changes of the right shoulder. RAD/Chest 1 View (Portable) IMPRESSION: No radiographic evidence of acute cardiopulmonary disease. Electronically Signed: Christian Felipe MD at 11:36 EDT ,
--- NOTE | 2024-03-13 10:59 | EKG12_ITS ---
Test Reason : CP Blood Pressure : / mmHG Vent. Rate : 054 BPM Atrial Rate : 054 BPM P-R Int : 186 ms QRS Dur : 086 ms QT Int : 544 ms P-R-T Axes : 021 -16 -02 degrees QTc Int : 515 ms Sinus bradycardia Prolonged QT Abnormal ECG Confirmed by NIXON SANDERS, ILYA ([id number]), medical transcription editor URIAH ROE ([id number]) on 03/15/2024 8:02:17 AM Referred By: DESTINEE/JUNI Confirmed By:ILYA ALICEA MD
[2024-03-13 11:08] LABS: Absolute Lymphocyte Count 1.94 X10^3/uL (0.83-4.51); Absolute Neutrophil Count 1.8 X10^3/uL (2.0-7.7); Basophil# 0.02 X10^3/uL; Basophil% 0.5 % (0-1); Eosinophil# 0.09 X10^3/uL; Hematocrit 30.2 % (37-47); Hemoglobin 9.4 g/dL (12.0-15.0); Lymphocyte # 1.94 X10^3/ul (0.83-4.51); Lymphocyte % 44.1 % (19-41); Mean Corp Hgb Conc 31.1 g/dL (32-36); Mean Corpuscular Hgb 26.1 pg (27.0-32.0); Mean Corpuscular Volume 83.9 fL (81-99); Monocyte# 0.54 X10^3/uL; Monocyte% 12.3 % (0-10); NRBC Flagged by Analyzer 0 % (0-5); Neutrophil % 40.9 % (47-70); Platelet Count 309 K/mm3 (150-450); RBC Distribution Width CV 15.5 % (11.6-14.6); RBC Distribution Width SD 47.3 fl (35.1-43.9); White Blood Count 4.4 K/mm3 (4.4-11.0)
[2024-03-13 11:28] LABS: Anion Gap 6 (5-15); BUN 14 mg/dL (7-18); BUN/Creat Ratio 10.3 RATIO (10-20); Calcium,Total 8.8 mg/dL (8.5-10.1); Chloride 107 mmol/L (98-107); Creatinine, Serum 1.36 mg/dL (0.55-1.02); EST Glomerular Filtration Rate 41 mL/min (>60); Est Glom Filt Rate - Afr Amer 49 mL/min (>60); Estimated Creatinine Clearance 37.34 ml/min; Glucose 120 mg/dL (74-106); Potassium 4.2 mmol/L (3.5-5.1); Sodium Level 138 mmol/L (136-145); Troponin-I HS (w/2H Reflex) 8 pg/mL (3.0-54.0)
--- NOTE | 2024-03-13 11:45 | EDS_ITS ---
HPI History of Present Illness Chief Complaint: Chest Pain Informant: patient Onset/Context/Timing Onset: Today Activity at onset: sudden Timing: Continuous Quality: Positive for Sharp Location: Substernal Worsened By: Nothing Relieved By: - (Doing breathing exercises) Associated Symptoms: Positive for Diaphoresis, Dyspnea, Lightheadedness and Palpitations; Negative for Nausea, Vomiting, Cough, Fever or Acid Reflux Narrative Narrative: Patient presents with chest pain that began today. Patient states it woke her up around 3 AM. Patient states it began rather suddenly. Patient describes it as sharp. Patient states it has resolved since she arrived here in the emergency department. Patient admits to some shortness of breath. Patient states her pain did get better after doing some breathing exercises. Patient states she did break out in a sweat when the pain began. Patient states she also felt like her heart was racing and she was lightheaded. Patient states she had a recent total knee replacement 3 weeks ago. CVD Risk Factors: Positive for Hypertension, Diabetes and Hypercholesterolemia PE Risk Factors: Positive for Recent Travel/Surgery and Recent Immobilization; Negative for Prior DVT or PE or Cancer [facility] Medical History Acute bronchitis, unspecified Acute sinusitis, unspecified Urinary tract infection History of DVT (deep vein thrombosis) Paroxysmal atrial flutter RUTH (obstructive sleep apnea) Anxiety and depression Paroxysmal atrial fibrillation Essential hypertension Contusion of left elbow, initial encounter Encounter for screening for COVID-19 Contact with or suspected exposure to other viral communicable disease History of stroke History of pulmonary embolism Hyperlipidemia Type 2 diabetes mellitus Home Medications ?Medication ?Instructions ?Recorded ?Last Taken ?Type amlodipine 5 mg tablet 10 mg PO DAILY BLOOD PRESSURE 10/10/15 02/12/23 History albuterol sulfate 90 mcg/actuation 2 puff inhalation Q4H PRN 02/12/23 02/11/23 History aerosol inhaler shortness of breath or wheezing gabapentin 800 mg tablet 800 mg PO DAILY nerve pain 02/12/23 02/11/23 History atorvastatin 10 mg tablet (Lipitor) 10 mg PO QHS 03/17/23 Unknown History levofloxacin 500 mg tablet 500 mg PO DAILY #10 tabs 03/30/23 Unknown Rx amoxicillin 875 mg-potassium 1 tab PO BID #20 tabs 08/24/23 Unknown Rx clavulanate 125 mg tablet hydrocodone-acetaminophen 5-325mg 1 tab PO Q6H PRN PRN Pain 3 days 09/19/23 Unknown Rx 5mg-325mg #10 TABLETS Allergy/AdvReac Type Severity Reaction Status Date / Time lisinopril Allergy Unknown Unknown Verified 09/19/23 10:53 latex Allergy Rash Verified 09/19/23 10:53 oxycodone (Oxycodone) AdvReac Itching Verified 09/19/23 10:53 Family History Mother Diabetes Cancer Myocardial infarction Hypertension Father Myocardial infarction Heart disease Hypertension Brother Cancer Hypertension Sister Bipolar disorder Schizophrenia Hypertension Surgical History History of cerebral aneurysm repair (~2012) History of shoulder surgery History of carpal tunnel release History of appendectomy History of hysterectomy History of cholecystectomy History of total knee replacement Social History Smoking Status: Never smoker alcohol intake: never substance use type: does not use caffeine: Yes Type: carbonated beverages Number of servings: 1 ROS ROS ED Constitutional Constitutional ED: Denies chills or fever(s) Eyes Eyes: Denies blurry vision or change in vision ENT ENT ED: Denies rhinorrhea or sore throat Cardiovascular Cardiovascular: Reports chest pain and palpitations Respiratory/Chest Respiratory/Chest: Reports dyspnea; Denies cough Gastrointestinal Gastrointestinal: Denies abdominal pain, nausea or vomiting Genitourinary Genitourinary ED: Reports dysuria; Denies hematuria Musculoskeletal Musculoskeletal: Denies back pain or neck pain Integumentary Denies abscess or rash Neurologic Neurologic: Reports headache(s); Denies weakness Allergic/Immunologic Allergic/Immunologic ED: Denies mouth swelling or urticaria EXAM Physical Exam Const Vital Signs: 03/13/24 10:42 03/13/24 10:47 03/13/24 11:01 Temperature 97.2 F L Temperature Source Oral Pulse Rate 58 L Respiratory Rate 16 Respiratory Effort Normal Non-Labored Blood Pressure 98/76 Blood Pressure Mean 83 Pulse Ox 97 96 Oxygen Delivery Method Room Air Room Air 03/13/24 11:41 03/13/24 12:00 03/13/24 13:00 Temperature Temperature Source Pulse Rate 53 L 55 L 62 Respiratory Rate 15 14 16 Respiratory Effort Blood Pressure 101/60 106/61 108/74 Blood Pressure Mean 73 76 85 Pulse Ox 97 97 97 Oxygen Delivery Method Room Air 03/13/24 14:00 03/13/24 15:00 03/13/24 16:00 Temperature 97.8 F Temperature Source Temporal Pulse Rate 49 L 64 87 Respiratory Rate 16 20 H 16 Respiratory Effort Blood Pressure 124/70 H 127/78 H 131/78 H Blood Pressure Mean 88 94 95 Pulse Ox 97 98 97 Oxygen Delivery Method Room Air Positive well nourished and well developed General Appearance ED: well developed and NAD HEENT Reports moist mucous membranes Neck supple and no JVD Resp normal respiratory effort and clear to auscultation bilaterally Cardio regular rate and regular rhythm GI soft to palpation, non-tender and non-distended Neuro oriented x3, CN's II-XII intact bilaterally and no sensory deficits noted Sensorium / Orientation: awake and alert Motor Exam: strength 5/5 throughout Psych mental status grossly normal Heart Score History: Slightly/Non-Suspicious ECG: Normal Age: >/= 65 years Risk Factors: >/= 3 Risk Factors or History of CAD Troponin: </= Normal Limit Score: 4 MDM MDM MDM Narrative Medical decision making narrative: Differential diagnosis includes cardiac dysrhythmia, cardiac ischemia, pneumonia, pulmonary embolism, urinary tract infection, electrolyte abnormality, and anxiety. EKG will be obtained to assess for cardiac dysrhythmia and cardiac ischemia. Chest x-ray will be obtained to assess for pneumonia and pneumothorax. CBC will be obtained to assess for leukocytosis and anemia. Basic metabolic profile will be obtained to assess for electrolyte abnormality and renal function. High-sensitivity troponin will be obtained to assess for cardiac ischemia. D-dimer will be obtained to assess for pulmonary embolism. 2-hour repeat high-sensitivity troponin will be obtained to assess for ongoing cardiac ischemia. Urinalysis will be obtained to assess for urinary tract infection and hematuria. Lab Data Attestation: I reviewed the patient's lab results. Lab results narrative: CBC was reviewed. There is a mild anemia with a hemoglobin of 9.4 and hematocrit of 30.2. Basic metabolic profile was reviewed. Creatinine was slightly elevated at 1.36. The remainder is within normal limits. High- sensitivity troponin was reviewed and was normal at 8. D-dimer was reviewed and was elevated at 3.80. 2-hour repeat high-sensitivity troponin was reviewed and was normal at 8. Urinalysis was reviewed. Leukocyte esterase was 25. There are 0-5 white blood cells. There are 5-10 epithelial cells. There is rare bacteria. Labs: Laboratory Results - last 24 hr 03/13/24 03/13/24 03/13/24 10:57 13:39 15:55 WBC 4.4 RBC 3.60 L Hgb 9.4 L Hct 30.2 L MCV 83.9 MCH 26.1 L MCHC 31.1 L RDW Std Deviation 47.3 H RDW Coeff of Amandeep 15.5 H Plt Count 309 MPV 10.0 Immature Gran % (Auto) 0.200 Neut % (Auto) 40.9 L Lymph % (Auto) 44.1 H [place] % (Auto) 12.3 H Eos % (Auto) 2.0 Baso % (Auto) 0.5 Absolute Neuts (auto) 1.8 L Absolute Lymphs (auto) 1.94 Nucleated RBC % 0 D-Dimer Quant (PE/DVT) 3.80 H* Sodium 138 Potassium 4.2 Chloride 107 Carbon Dioxide 25.0 Anion Gap 6 BUN 14 Creatinine 1.36 H Estim Creat Clear Calc 37.34 Est GFR (MDRD) Af Amer 49 L Est GFR (MDRD) Non-Af 41 L BUN/Creatinine Ratio 10.3 Glucose 120 H Calcium 8.8 Troponin I High Sens 8 8 Urine Color Yellow Urine Clarity Clear Urine pH 6.5 Ur Specific [place] 1.005 Urine Protein 15 H Urine Glucose (UA) Normal Urine Ketones Negative Urine Occult Blood Negative Urine Nitrite Negative Urine Bilirubin Negative Urine Urobilinogen 1 H Ur Leukocyte Esterase 25 H Urine RBC 0-5 SEEN Urine WBC 0-5 SEEN Ur Squamous Epith Cells 5-10 SEEN Urine Bacteria RARE Urine Mucus 0 SEEN Radiography Chest X-Ray - ED: 1 View, Read by ED Physician, Read by Radiologist and No Acute Disease Diagnostic Testing: Clinical Impression(s) from Imaging Studies Chest X-Ray 03/13/24 10:59 IMPRESSION: No radiographic evidence of acute cardiopulmonary disease. Electronically Signed: Christian Felipe MD at 11:36 EDT , Chest CTA 03/13/24 13:52 IMPRESSION: 1. No evidence of pulmonary embolism or aortic dissection. 2. No acute pulmonary infiltrate or pleural effusions. Electronically Signed: Christian Felipe MD at 15:07 EDT , Portable 1 view chest x-ray was obtained. On my independent interpretation, lung cohen are clear. There is normal cardiac silhouette. Bony thorax is normal. There is no acute process noted. Radiologist also interpreted the x- ray and agrees. Because of the elevated D-dimer, CTA of the chest was obtained. There is no evidence of pulmonary embolism or aortic dissection. There is no acute infiltrate or effusion noted. This was interpreted by the radiologist was also independently reviewed by myself. EKG Initial EKG: Attestation: I personally reviewed and interpreted this EKG as follows: Interpretation: Sinus Rhythm and No Acute Injury Pattern Comments: EKG was obtained. On my independent interpretation, it showed a sinus bradycardia with a rate of 54. MS interval and QRS interval were normal. QTc interval was slightly prolonged at 515 ms. There is borderline left axis deviation at -16. There are no acute ST or T wave changes. Prior EKG tracings: available for review Prior: Unchanged (10/09/2018) Treatment and Re-Evaluation :: Patient was given aspirin here. Patient was advised of her findings. Patient has a HEART score of 4. Patient was instructed to follow-up with her primary care physician in 5 to 7 days for further evaluation. Patient understood and was agreeable with the plan. All questions were answered. Discharge Plan Triage Chief Complaint: Chest Pain ED Provider: Jaron Worrell Dx/Rx/DC Orders Clinical Impression: Chest pain, Essential hypertension Instructions: ED Chest Pain, Uncertain Cause Prescriptions: No Action atorvastatin [Lipitor] 10 mg tablet 10 mg PO QHS levofloxacin 500 mg tablet 500 mg PO DAILY Qty: 10 0RF amoxicillin-pot clavulanate 875-125 mg tablet 1 tab PO BID Qty: 20 0RF amlodipine 5 MG tablet 10 mg PO DAILY gabapentin 800 mg tablet 800 mg PO DAILY albuterol sulfate 90 mcg/actuation HFA aerosol inhaler 2 puff INHALATION Q4H PRN (Reason: shortness of breath or wheezing) hydrocodone-acetaminophen 5-325 mg tablet 1 tab PO Q6H PRN PRN (Reason: Pain) 3 Days Qty: 10 0RF Primary Care Provider: MOISES ESTRADA Referrals: MOISES ESTRADA [Other] - 5-7 Days Care Physician,No Primary [Non-Staff] - Print Language: Pashto Disposition Disposition: Home, Self Care
[2024-03-13] MEDS: Aspirin 81 MG TAB.CHEW 324 MG PO (12:24)
[2024-03-13 13:06] LABS: Reflex Troponin-HS? (from REC) Y
--- NOTE | 2024-03-13 13:24 | ED.RN ---
Call from lab, D-Dimer 3.8. Dr Worrell made aware.
--- NOTE | 2024-03-13 13:52 | CT_ITS ---
STUDY: CTA CHEST REASON FOR EXAM: Female, 69 years old. Elevated D-dimer RADIATION DOSAGE (If Supplied By Facility): CTDIvol = ( 12.64 ) mGy, DLP = ( 545.03 ) mGycm TECHNIQUE: The examination was performed with the intravenous administration of IV 100mL Isovue-370. Post-processing of the angiographic images was performed, with multiplanar reformation and 3D reconstruction. The protocol utilizes one or more of the following dose reduction techniques: automated exposure control, adjustment of mA and/or kV according to patient size,and/or use of iterative reconstruction technique. COMPARISON: Prior study dated: 08/16/2022 FINDINGS: Normal enhancement of the main pulmonary artery and right and left pulmonary arteries. Normal enhancement of the bilateral peripheral pulmonary arteries. There is no demonstrated pulmonary embolism. There is mild atherosclerotic tortuosity of the aortic arch and descending thoracic aorta. There is no demonstrated aortic dissection. Normal heart and pericardium. No evidence of coronary calcifications. Normal mediastinum. Normal hilar regions. Normal visualized trachea and bronchi. Mild atelectatic changes in the lower lungs. No focal consolidation is seen. No evidence of pneumothorax. There are no pleural effusions. Normal chest wall structures. No demonstrated acute osseous changes. The visualized portions of the upper abdomen demonstrate no acute process. Status post cholecystectomy. CT/CTA Chest W/WO Contrast IMPRESSION: 1. No evidence of pulmonary embolism or aortic dissection. 2. No acute pulmonary infiltrate or pleural effusions. Electronically Signed: Christian Felipe MD at 15:07 EDT ,
[2024-03-13 14:00] LABS: Troponin-I HS 8 pg/mL (3.0-54.0)
[2024-03-13] MEDS: 0.9% Normal Saline (1000mL) 1,000 ML 1000 ML IV (14:30)
[2024-03-13 15:57] LABS: Mucous, Urine 0 SEEN /hpf (<or=2+)
[2024-03-13 16:12] LABS: Color, Urine Yellow (Yellow); Glucose, Dipstick Normal (Normal); Ketone-Dipstick Negative (Negative); Leukocyte Esterase-Dipstick 25 /ul (Negative); Nitrite-Dipstick Negative (Negative); Occult Blood-Urine Negative /ul (Negative); Protein-Dipstick 15 mg/dl (Negative); Specific Gravity, Urine 1.005 (1.002-1.030); Urine Bilirubin Dipstick Negative (Negative); Urine Clarity Clear (Clear); Urine Urobilinogen 1 mg/dl (Normal); Urine pH 6.5 (5.0 - 8.0)
[2024-03-13 17:00] LABS: Red Blood Cells-Urine 0-5 SEEN /hpf (0-5); White Blood Cells 0-5 SEEN /hpf (0-5)
[2024-03-13 17:01] LABS: Bacteria RARE /hpf (None Seen); Squamous Epithelial Cells - UA 5-10 SEEN /hpf (5-10)
== END 2024-03-13 17:26 | disposition home or self-care (01) ==
PROVIDERS: Emergency Provider Emergency Medicine; Visit Provider Emergency Medicine
DX: R07.9 Chest pain, unspecified (principal); I10 Essential (primary) hypertension; E78.00 Pure hypercholesterolemia, unspecified; Z79.899 Other long term (current) drug therapy; Z82.49 Family history of ischemic heart disease and other diseases of the circulatory system
CPT/HCPCS: 71045; 71275; 80048; 81001; 84484; 85025; 85379; 93005; 96360; 96361; 99285; J7030; Q9967; A4216

== ENCOUNTER 2024-05-03 09:30 | Outpatient (RCR) | payer BC, MEDICARE, SELFPAY | END 2024-05-03 19:00 | disposition home or self-care (01) | LOC: PT 09:30 | PROVIDERS: Referring Provider Orthopaedic Surgery; Visit Provider Orthopaedic Surgery | DX: Z96.652 Presence of left artificial knee joint (principal) | CPT/HCPCS: 97110; 97162; 97530 ==

== ENCOUNTER 2025-01-06 04:18 | Emergency (ER) | payer MEDICARE, SELFPAY ==
[2025-01-06 04:21] VITALS: BP 185/94; PULSE 64; RESP 16; TEMP 36.6; O2SAT 100; BMI 41.0
--- NOTE | 2025-01-06 05:04 | RAD_ITS ---
PROCEDURE: HUMERUS MIN 2 VIEWS 01/06/2025 REASON FOR EXAM: PAIN TECHNIQUE: HUMERUS MIN 2 VIEWS COMPARISON: 03/05/2021. FINDINGS: Mild osteopenia. Moderate degenerative joint disease. Calcific tendinosis at the humeral insertion of the rotator cuff tendons. 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 Unremarkable humeral metallic inessa and screw. RAD/Humerus min 2 Views IMPRESSION: No radiographic evidence of an acute abnormality. [facility]
--- NOTE | 2025-01-06 05:08 | EDS_ITS ---
HPI History of Present Illness Chief Complaint: Upper Extremity Injury Narrative Narrative: Chief complaint and HPI: Right shoulder pain. 70-year-old female with past medical history of chronic shoulder pain secondary to rotator cuff injury presents for evaluation of right shoulder pain. Patient states that she accidentally fell getting into the shower this morning. States she landed on her right shoulder. Did not hit her head. No LOC. She presents to the ED secondary to pain. She denies any numbness or tingling. Denies any chest pain, elbow, wrist, hand pain. Has not taken anything for the pain. Review of systems: See HPI Medications: As listed on the chart Allergies: As listed on the chart PFSH: Per chart Vital signs: As listed on the chart. Reviewed. Physical exam: Gen: A&O x3, NAD Head: Normocephalic, atraumatic Eyes: No sclera icterus, conjunctiva clear, PERRL, EOMI ENT: Moist mucous membranes, atraumatic Neck: Trachea midline, full range of motion nontender, CV: RRR, no murmurs, no chest wall TTP Resp: Lungs CTA BL, no w/r/c Musc: Limited range of motion of the right upper extremity due to right shoulder pain, no deformity, right shoulder and proximal/mid humerus tender to palpation, elbow with full range of motion without tenderness, radial pulse +2, good capillary refill, sensation intact, compartments soft. Skin: Warm, dry, intact Neuro: Alert, oriented, grossly intact, sensation intact, GCS 15 Psych: Cooperative, appropriate mood and affect [facility] Medical History Acute bronchitis, unspecified Acute sinusitis, unspecified Urinary tract infection History of DVT (deep vein thrombosis) Paroxysmal atrial flutter RUTH (obstructive sleep apnea) Anxiety and depression Paroxysmal atrial fibrillation Essential hypertension Contusion of left elbow, initial encounter Encounter for screening for COVID-19 Contact with or suspected exposure to other viral communicable disease History of stroke History of pulmonary embolism Hyperlipidemia Type 2 diabetes mellitus Home Medications ?Medication ?Instructions ?Recorded ?Last Taken ?Type amlodipine 5 mg tablet 10 mg PO DAILY BLOOD PRESSUR E 10/10/15 02/12/23 History albuterol sulfate 90 mcg/actuation 2 puff inhalation Q 4H PRN 02/12/23 02/11/23 History aerosol inhaler shortness of breath or [place] ing gabapentin 800 mg tablet 800 mg PO DAILY nerve pain 0 02/12/23 02/11/23 History atorvastatin 10 mg tablet (Lipitor) 10 mg PO QHS 03/17 Unknown History levofloxacin 500 mg tablet 500 mg PO DAILY #10 tabs Unknown Rx hydrocodone-acetaminophen 5-325mg 1 tab PO Q6H PRN PRN Pain 3 days 09/19/23 Unknown Rx 5mg-325mg #10 TABLETS Allergy/AdvReac Type Severity Reaction Status Date / Time lisinopril Allergy Unknown Unknown Verified 01/06/25 04:21 latex Allergy Rash Verified 01/06/25 04:21 Family History Mother Diabetes Cancer Myocardial infarction Hypertension Father Myocardial infarction Heart disease Hypertension Brother Cancer Hypertension Sister Bipolar disorder Schizophrenia Hypertension Surgical History History of cerebral aneurysm repair (~2012) History of shoulder surgery History of carpal tunnel release History of appendectomy History of hysterectomy History of cholecystectomy History of total knee replacement Social History Smoking Status: Never smoker alcohol intake: never substance use type: does not use caffeine: Yes Type: carbonated beverages Number of servings: 1 EXAM Physical Exam Const Vital Signs: 01/06/25 04:21 Temperature 97.9 F Temperature Source Oral Pulse Rate 64 Respiratory Rate 16 Blood Pressure 185/94 H Blood Pressure Mean 124 Pulse Ox 100 MDM MDM MDM Narrative Medical decision making narrative: 70-year-old female with past medical history of chronic shoulder pain secondary to rotator cuff injury presents for evaluation of right shoulder pain. Patient states that she accidentally fell getting into the shower this morning. States she landed on her right shoulder. Did not hit her head. No LOC. See physical exam findings. Differential diagnosis includes but is not limited to contusion versus fracture. [place] ordered for pain. X-ray of the shoulder and humerus ordered. X-ray of the right shoulder and humerus were personally reviewed and interpreted by me, ED physician. No fracture or dislocation. Patient's hardware is in place. She has chronic age-related changes. Radiology in agreement. On reevaluation, patient's pain is improved. Patient was updated of all the results. Patient stable to discharge home. Recommended RICE therapy. She has an appointment to see her orthopedic surgeon in 2 months. Recommended calling to see if she can be seen sooner. She is requesting a work note, this was given. Impression: 1. Right shoulder contusion 2. History of chronic right shoulder pain Discharge Plan Triage Chief Complaint: Upper Extremity Injury ED Provider: Anthony Jalloh Dx/Rx/DC Orders Clinical Impression: Contusion of right shoulder Instructions: ED Contusion, Upper Extremity Prescriptions: No Action atorvastatin [Lipitor] 10 mg tablet 10 mg PO QHS levofloxacin 500 mg tablet 500 mg PO DAILY Qty: 10 0RF amlodipine 5 MG tablet 10 mg PO DAILY gabapentin 800 mg tablet 800 mg PO DAILY albuterol sulfate 90 mcg/actuation HFA aerosol inhaler 2 puff INHALATION Q4H PRN (Reason: shortness of breath or wheezing) hydrocodone-acetaminophen 5-325 mg tablet 1 tab PO Q6H PRN PRN (Reason: Pain) 3 Days Qty: 10 0RF Stand Alone Forms: ED Work / School Excuse Primary Care Provider: Mellissa Frank NP Referrals: Follow-up with your orthopedic surgeon [Other] - 3-5 Days Mellissa Frank NP, [employer] OPERATOR-[employer] [Primary Care Provider] - 3-5 Days Activity Restrictions/Additional Instructions: Follow-up with your orthopedic surgeon. Call their office today to see if you can be seen sooner. Tylenol and ibuprofen as needed for pain. Rest. Ice and heat as needed for comfort. Print Language: Macedonian Disposition Disposition: Home, Self Care
[2025-01-06] MEDS: HYDROcodone Bitartrate/Apap 5/325 Tablet PO (05:16)
--- OUTSIDE RECORDS SUMMARY | 2025-01-06 05:30 | XMS RPT_ITS | CCD ---
Author Organization [facility] Care Team Providers Care Certified Residential Medication Aide Name Role Phone Avelina Peralta PA-C Unavailable Agusto Elliott DO Primary Care Provider JOSE SANDERS, DR NEAL Primary Care Physician JOSE SANDERS., DR. NEAL Primary Care Malvin HEATON DO, DR. KORI Hampton Attending Jyoti Sheehan MD., DR. NEAL Primary Care CONNOR Roberts DO Attending Fabrizio GARCIA MD., DR. NEAL Primary Care Malvin PALENCIA MD, INDIRA Haney Attending Dr. Ashleigh Silva Chi Primary Care Provider Dr. Ashleigh Garcia Chi Referring Provider LIZZETTE Paulino Attending Provider LIZZETTE Weller Attending Provider Dr. Ashleigh Garcia Chi Primary Care Provider Dr. Ashleigh Garcia Chi Referring Provider LIZZETTE Paulino Attending Provider LIZZETTE Weller Attending Provider Dr. Ashleigh Garcia Chi Primary Care Provider Dr. Ashleigh Garcia Chi Referring Provider Dr. Alfonzo Broderick Attending Provider Roof FREIGHT SALES BROKER, FREIGHT SALES BROKER-C Pratik Lunsford Attending Provider 1([facility])[phone] Agusto Elliott DO Primary Care Provider 1([facility])[phone] Dr. Ashleigh Garcia Chi Primary Care Provider Dr. Alfonzo Broderick Attending Provider Roof FREIGHT SALES BROKER, FREIGHT SALES BROKERTannaC Pratik Lunsford Attending Provider Dr. Ashleigh Garcia Chi Primary Care Provider Jose, Dr. Ashleigh Tellez Referring Provider LIZZETTE Weller Attending Provider Yun MUD MIXER HELPER.Moises KAY Primary Care Provider Care Physician, No Primary Primary Care Provider Unavailable Care Physician, No Primary Referring Provider Un available LIZZETTE Paulino Attending Provider LIZZETTE Weller Attending Provider Agusto Elliott DO Primary Care Provider Yun MUD MIXER HELPER.Moises KAY Primary Care Provider Al Gonzalez Unavailable Unavailable Marcello Lloyd PA-C Unavailable Makayla Bradley MD Unavailable Sheldon PT, Shannon Unavailable Hayes PT, Jeffry Unavailable [phone] Hayes PT, Jeffry Unavailable [phone] Jaron Worrell Attending Unavailable CHU, MAROUN Primary Care Unavailable Care Physician, No Primary Primary Care Unava ilable Jenelle Luis Attending Unavailable CHU, MAROUN Primary Care Unavailable Makayla Bradley Attending Unavailable Makayla Bradley Referring Unavailable Nhan Weller Attending Unavailable PROVIDER, UNKNOWN Referring Unavailable YUN, MOISES M Primary Care Unavailable MARCELLO LLOYD Referring Unavailable YUN, MOISES M Primary Care Unavailable PROVIDER, UNKNOWN Referring Unavailable YUN, MOISES M Primary Care Unavailable YUN, MOISES M Primary Care Unavailable MAKAYLA BRADLEY Admitting Unavailable MAKAYLA BRADLEY Attending Unavailable YUN, MOISES M Primary Care Unavailable ILEANA DUBON Consulting Unavailable MAKAYLA BRADLEY Attending Unavailable YUN, MOISES M Primary Care Unavailable YUN, MOISES M Referring Unavailable YUNFLYE M Primary Care Unavailable MAKAYLA BRADLEY Attending Unavailable FLY MALCOLME M Primary Care Unavailable MACRELLO LLOYD Attending Unavailable YUNFLYE M Primary Care Unavailable CAROLINA OJEDA Referring Unavailable YUNFLY PARISE M Primary Care Unavailable MAKAYLA BRADLEY Referring Unavailable YUN, MOISES M Primary Care Unavailable MAKAYLA BRADLEY Attending Unavailable FLY MALCOLME M Primary Care Unavailable MELANIE MAGANA Attending Unavailable SELF Referring Unavailable YUN, MOISES M Primary Care Unavailable YUN, MOISES M Referring Unavailable YUN, MOISES M Primary Care Unavailable YUN, MOISES M Primary Care Unavailable YUN, MOISES M Primary Care Unavailable MAKAYLA BRADLEY Attending Unavailable YUN, MOISES M Primary Care Unavailable SKY ALFARO Attending Unavailable MARCELLO LLOYD Referring Unavailable YUN, MOISES M Primary Care Unavailable YUN, MOISES M Primary Care Unavailable FLY MALCOLME M Attending Unavailable SELF Referring Unavailable YUN, MOISES M Primary Care Unavailable YUN, MOISES M Attending Unavailable YUNSARAHMOISES M Primary Care Unavailable YUN MOISES M Attending Unavailable YUN, MOISES M Primary Care Unavailable YUN, MOISES M Attending Unavailable FLY MALCOLME M Primary Care Unavailable Allergies Allergy Classification Reported Allergen(s) Allergy Type Date of Onset Reaction(s) Facility Acetaminophen / oxyCODONE (1 source) Acetaminophen / oxyCODONE Drug Allergy 9 Itching [facility] Work Phone: Angiotensin Converting Enzyme (ERICKSON) Inhibitors (1 source) Lisinopril Drug Allergy 9 Swelling [facility] Cats (1 source) Cat Animal Allergy (Dander) 2 Swelling [facility] Work Phone: Latex (1 source) Latex Substance Allergy 2 Rash [facility] Work Phone: (1 source) Acetaminophen / oxyCODONE Drug Allergy 0 [facility] Work Phone: (20 sources) Latex; Translations: [LATEX] allergy to substance 2 Rash [facility] Work Phone: (4 sources) Lisinopril; Translations: [LISINOPRIL] Drug Allergy 9 [facility] Work Phone: (20 sources) Acetaminophen / oxyCODONE; Translations: [acetaminophen-ox ycodone] Drug Allergy 9 Itching [facility] Work Phone: Comment on above: itching (20 sources) Cat; Translations: [CATS] Allergy to substance 2 Swelling [facility] Work Phone: (20 sources) Lisinopril; Translations: [lisinopril] Drug Allergy 9 Swelling [facility] (13 sources) oxyCODONE Drug Allergy 1 Itching [facility] (18 sources) Lisinopril Allergy to substance 9 Swelling [facility] (1 source) Lisinopril Drug Allergy 5 [facility] Repository (1 source) oxyCODONE Drug Allergy 5 [facility] Rep[facility] Medications Current Medications Medication Drug Class(es) Dates Sig (Normalized) Sig (Original) acetaminophen 500 mg oral tablet (20 sources) Start: 02-03-2024 take 2 tablets by mouth every eight hours as needed acetaminophen (TYLENOL) 500 mg tablet Take 2 tablets by mouth every 8 hours as needed for pain. 90 tablet 02/03/2024 2:17 PM EDT 02/03/2024 Active Start: 04-07-2019 take 1 capsule by mo [facility] four times daily as needed for pain Tylenol 325 mg oral capsule Dose : 650 mg =, Oral, QID, PRN as needed for pain, 0 Refill(s) Start Date: 04/07/19 Status: Ordered [id number] actuat albuterol 0.09 mg/actuat metered dose inhaler (20 sources) beta2-Adrenergic Agonist Start: 02-12-2023 take 1 puff(s) by inhalation every four hours Albuterol Sulfate Active 2 PUFF INHALATION Q4H February 11, 2023 11:00pm Start: 07-02-2022 take 2 puff(s) by mo uth every four hours albuterol 108 (90 Base) MCG/ACT inhaler INHALE 2 PUFFS BY MOUTH EVERY 4 HOURS 0 07/02/2022 Active Start: 08-13-2020 End: 12-28-2024 take 1 puff(s) by inhalation every four hours as needed for wheezing albuterol HFA (PROAIR HFA) 90 mcg/actuation inhaler Indications: Asthma, unspecified asthma severity, unspecified whether complicated, unspecified whether persistent (HCC) Inhale 1 puff as instructed every 4 hours as needed for wheezing/shortness of breath. 1 each 5 12/28/2024 Active Start: 08-16-2012 End: 04-16-2023 take 2 puff(s) by inhalation every six hours as needed albuterol HFA 90 mcg/actuation inhaler Indications: Asthma Inhale 2 Puffs as instructed every 6 hours as needed. 1 Inhaler 2 08/16/2012 04/16/2023 Discontinued Comment on above: Inhale 2 Puffs as in structed every 6 hours as needed. Inhale 1 Puff as ins tructed every 4 hours as needed. albuterol MDI (90 mcg/inh) CFC free inhalation aerosol (2 sources) Start: 08-13-19 take 1 dose by inhalation four times daily albuterol MDI (90 mcg/inh) CFC free inhalation aerosol Dose : 180 mcg = 2 puff(s), Inhalation, QID, # 18 gram(s), 0 Refill(s) Start Date: 08/13/20 Status: Ordered ALPRAZolam 0.25 mg oral tablet (2 sources) Benzodiazepine Start: 12-29-19 End: 01-05-20 take 1 tablet by mouth three times daily as needed ALPRAZolam (XANAX) 0.25 mg tablet Indications: Panic attack as reaction to stress Take 1 tablet by mouth three times a day as needed for up to 7 days. 21 tablet 12/28/2024 01/04/2025 Active amLODIPine 10 mg oral tablet (20 sources) Dihydropyridine Calcium Channel Anjelica Start: 02-11-20 End: 06-07-20 take 1 tablet by mouth once daily amLODIPine (NORVASC) 10 mg tablet Indications: Hypertension, unspecified type Take 1 tablet by mouth once daily. 90 tablet 1 06/07/2024 Active Start: 07-20-2023 End: 02-11-2024 take 1 tablet by mouth once daily amLODIPine (NORVASC) 2.5 mg tablet take 1 tablet by mouth every day 90 tablet 10/19/2023 02/11/2024 Discontinued Start: 03-11-2023 End: 02-11-2024 take 1 tablet by mouth once daily amLODIPine (NORVASC) 5 mg tablet Indications: Hypertension, unspecified type Take 1 tablet by mouth once daily. 90 tablet 1 10/26/2023 02/11/2024 Discontinued Start: 08-19-2021 amLODIPine (No rvasc) 10 MG tablet Start: 07-08-2020 amLODIPine (NO RVASC) 2.5 mg tablet Start: 10-10-2015 take 10 mg by mouth once daily Amlodipine Active 10 MG PO DAILY October 09, 2015 11:00pm Comment on above: take 1 tablet by zarina th every day Take 1 tablet by zarina th once daily. amoxicillin 875 mg / clavulanate 125 mg oral tablet (2 sources) Penicillin-class Antibacterial Start: End: take 1 tablet by mouth twice daily amoxicillin-clavula nettie potassium (AUGMENTIN) 875-125 mg per tablet Indications: Acute non-recurrent sinusitis, unspecified location Take 1 tablet by mouth two times a day for 5 days. 10 tablet 07/07/2024 07/12/2024 Active Start: 08-24-2023 take 1 tablet by zarina th twice daily Amoxicillin-Pot Clavulanate Active 1 TABLET PO TWICE A DAY August 24, 2023 12:00am atorvastatin 10 mg oral tablet (20 sources) HMG-CoA Reductase Inhibitor Start: 03-17-2023 take 1 tablet by mouth at bedtime Atorvastatin (Lipitor) 10 mg tablet Active 10 MG PO AT BEDTIME March 16, 2023 11:00pm Start: 09-06-2018 End: 04-16-2023 atorvastatin 80 mg oral tabl et Dose : 80 mg = 1 tab(s), Oral, qDay Start Date: 09/06/18 Status: Ordered Start: 05-20-2016 End: 01-05-2023 take 80 mg by mouth at bedtime Atorvastatin Discontinu ed 80 MG PO AT BEDTIME May 20, 2016 12:00am January 05, 2023 7:09am Comment on above: Take 80 mg by mouth daily at bedtime. baclofen 10 mg oral tablet (19 sources) gamma-Aminobutyric Acid-ergic Agonist Start: 07-17-2022 take 1 tablet by mouth once daily at bedtime baclofen (Lioresal) 10 MG tablet 1 TABLET(S) DAILY ORAL AT BEDTIME 0 07/17/2022 Active Start: 09-24-2019 take 1 tablet by zarina th at bedtime BACLOFEN 10 MG TABS Take 1 tablet by mouth 30 minutes prior to bedtime BACLOFEN [id number] Avelina Peralta PA-C benzonatate 100 mg oral capsule (1 source) Non-narcotic Antitussive Start: 09-10-2024 End: 09-25-2024 take 1 capsule by mouth every eight hours as needed for cough benzonatate (TESSALON PERLE) 100 mg capsule Indications: Sinobronchitis Take 1 capsule by mouth every 8 hours as needed for cough for up to 15 days. 30 capsule 09/10/2024 09/25/2024 Active carvedilol 12.5 mg oral tablet (20 sources) alpha-Adrenergic Anjelica, beta-Adrenergic Anjelica Start: 07-30-2020 End: 08-30-2024 take 1 tablet by mouth twice daily at mealtime carvedilol (COREG) 12.5 mg tablet Indications: Hypertension, unspecified type Take 1 tablet by mouth two times a day with meals. 180 tablet 08/30/2024 Active Start: 10-09-2018 End: 04-16-2023 take 6.25 mg by mouth twice daily Carvedilol Discontinued 6.25 MG PO TWICE A DAY October 08, 2018 11:00pm August 06, 2022 10:06am Comment on above: Take 6.25 mg by mout h twice daily with meals. 12.5 mg. 1 tablet two times a day with meals. chlorthalidone 25 mg oral tablet (18 sources) Thiazide-like Diuretic Start: take 1 tablet by mouth once daily chlorthalidone (Hygroton) 25 MG tablet Take 25 mg by mouth daily. 0 10/06/2021 Active clobetasol propionate 0.5 mg/ml topical cream (18 sources) Corticosteroid Start: 022 clobetasol (Temovate) 0.05 % cream APPLY TOPICALLY TO AFFECTED AREA TWICE A DAY FOR 30 DAYS 0 12/24/2021 Active CPAP (20 sources) CPAP Active CPAP doxycycline monohydrate 100 mg oral capsule (1 source) Tetracycline-class Drug Start: 09-10-2024 End: 09-15-2024 take 1 capsule by mouth twice daily doxycycline monohydrate (MONODOX) 100 mg capsule Indications: Sinobronchitis Take 1 capsule by mouth two times a day for 5 days. 10 capsule 09/10/2024 09/15/2024 Active ergocalciferol 1.25 mg oral capsule (20 sources) Provitamin D2 Compound Start: 04-19-2023 End: 09-11-2024 take 1 capsule by mouth every week ergocalciferol 50,000 unit capsule (VITAMIN D2, DRISDOL) Indications: Vitamin D deficiency Take 1 capsule by mouth one time a week. 4 capsule 1 09/11/2024 Active Comment on above: Take 1 capsule by [facility] one time a week. gabapentin 100 mg oral capsule (20 sources) Anti-epileptic Agent Start: 01-03-2025 End: 04-03-2025 take 1 capsule by mouth once daily at bedtime gabapentin (NEURONTIN) 100 mg capsule Indications: Other polyneuropathy Take 1 capsule by mouth daily at bedtime for 90 days. To be taken with her 800 mg at bedtime for total of 900 mg 90 capsule 01/03/2025 04/03/2025 Active Start: 02-12-2023 take 800 mg by mouth once daily Gabapentin Active 800 MG PO DAILY February 11, 2023 11:00pm Start: 08-06-2022 End: 05-23-2025 take 1 tablet by mouth three times daily gabapentin (NEURONTIN) 800 mg tablet Indications: Other polyneuropathy Take 1 tablet by mouth three times a day for 180 days. 270 tablet 1 11/24/2024 05/23/2025 Active Start: 10-09-2018 End: 08-06-2022 take 1 capsule by mouth twice daily gabapentin (Neurontin) 300 MG capsule Take 300 mg by mouth 2 times daily. 0 07/02/2022 Active Comment on above: Take 800 mg by mouth three times a day. Take 1 tablet by zarina th three times a day for 180 days. hydrALAZINE hydrochloride 25 mg oral tablet (4 sources) Arteriolar Vasodilator Start: 10-05-19 End: 04-16-20 hydrALAZINE 25 mg oral tablet Dose : 50 mg = 2 tab(s), Oral, TID, # 180 tab(s), 0 Refill(s), Pharmacy: [facility]/pharmacy #[id number], 157.5, cm, 10/03/20 14:51:00 EDT, Height, kg, 10/04/20 5:56:00 EDT, Dosing Weight Start Date: 10/04/20 Status: Ordered Comment on above: Take 25 mg by mouth three times daily. levoFLOXacin 500 mg oral tablet (2 sources) Quinolone Antimicrobial Start: 03-30-20 take 500 mg by mouth once daily Levofloxacin Active 500 MG PO DAILY March 29, 2023 11:00pm magnesium oxide 500 mg oral tablet (2 sources) Start: 06-11-20 magnesium oxide 500 mg oral tablet Dose : 500 mg = 1 tab(s), Oral, qDay, 0 Refill(s) Start Date: 06/11/20 Status: Ordered meclizine hydrochloride 25 mg oral tablet (20 sources) Antiemetic Start: 08-30-19 take 1 tablet by mouth every eight hours as needed for dizziness and dizziness meclizine (ANTIVERT) 25 mg tab Indications: Dizziness Take 1 tablet by mouth three times a day as needed. 30 tablet 1 08/30/2024 Active Start: 07-02-2022 End: 08-30-2024 take 1 tablet by mouth once daily meclizine (ANTIVERT) 25 mg tab Take 25 mg by mouth once daily. 07/02/2022 08/30/2024 Discontinued Start: 07-02-2022 meclizine (ANT IVERT) 25 mg tab Take 25 mg by mouth. 0 07/02/2022 Active Comment on above: Take 25 mg by mouth. mupirocin 0.02 mg/mg topical ointment (3 sources) RNA Synthetase Inhibitor Antibacterial Start: 01-27-20 End: 02-12-20 mupirocin (BACTROBAN) 2 % ointment Indications: Pre-operative examination Apply 0.5 inch with cotton swab (Q-tip) to each nostril in the morning and evening for 5 days prior to and including day of surgery. 22 g 0 01/27/2024 02/12/2024 Active naproxen 500 mg oral tablet (18 sources) Nonsteroidal Anti-inflammatory Drug Start: 07-17-19 23 take 1 tablet by mouth every twelve hours naproxen (Naprosyn) 500 MG tablet Take 500 mg by mouth in the morning and 500 mg in the evening. 0 07/17/2022 Active omeprazole 40 mg delayed release oral capsule (20 sources) Proton Pump Inhibitor Start: 12-08-19 24 take 1 capsule by mouth once daily omeprazole (PRILOSEC) 40 mg capsule Take 1 capsule by mouth once daily. 90 capsule 1 12/08/2023 Active oxyCODONE hydrochloride 5 mg oral tablet (20 sources) Opioid Agonist Start: 04-21-20 End: 04-28-20 take 1 tablet by mouth every eight hours as needed for pain oxyCODONE IR (ROXICODONE) 5 mg immediate release tablet Indications: S/P total knee arthroplasty, left Take 1 tablet by mouth every 8 hours as needed for pain for up to 7 days. for pain. 21 tablet 04/21/2024 04/28/2024 Active Start: 04-11-2024 End: 04-18-2024 take 1 tablet by mouth every eight hours as needed for pain oxyCODONE IR (ROXICODONE) 5 mg immediate release tablet Indications: S/P total knee arthroplasty, left Take 1 tablet by mouth every 8 hours as needed for pain for up to 7 days. for pain. 21 tablet 04/11/2024 04/18/2024 Start: 03-15-2024 End: 04-08-2024 take 1 tablet by mouth every six hours as needed for pain oxyCODONE IR (ROXICODONE) 5 mg immediate release tablet Indications: S/P total knee arthroplasty, left Take 1 tablet by mouth every 6 hours as needed for pain for up to 7 days. for pain. 28 tablet 03/25/2024 04/01/2024 Discontinued Start: 02-29-2024 End: 03-07-2024 take 1 tablet by mouth every six hours as needed oxyCODONE IR (ROXICODONE) 5 mg immediate release tablet Indications: S/P total knee arthroplasty, left Take 1-2 tablets by mouth every 6 hours as needed for pain for up to 7 days. for pain. 50 tablet 02/29/2024 03/07/2024 Active Start: 02-15-2024 End: 02-22-2024 take 1 tablet by mouth every six hours as needed oxyCODONE IR (ROXICODONE) 5 mg immediate release tablet Indications: S/P total knee arthroplasty, left Take 1-2 tablets by mouth every 6 hours as needed for pain for up to 7 days. for pain. 50 tablet 0 02/15/2024 02/22/2024 Active Start: 02-03-2024 End: 02-10-2024 take 1 tablet by mouth every six hours as needed oxyCODONE IR (ROXICODONE) 5 mg immediate release tablet Indications: S/P total knee arthroplasty, left Take 1-2 tablets by mouth every 6 hours as needed for pain for up to 7 days. 50 tablet 0 02/03/2024 02/10/2024 Active polyethylene glycol 3350 15922 mg powder for oral solution (17 sources) Osmotic Laxative Start: 02-03-2024 End: 02-13-2024 polyethylene glycol 3350 (MIRALAX) 17 gram/dose powder Take 17 g by mouth once daily as needed for constipation for up to 10 days. Dissolve dose in 4 - 8 ounces of liquid and take as directed. 238 g 0 02/03/2024 02/13/2024 Active semaglutide (OZEMPIC) 0.25 mg or 0.5 mg (2 mg/3 mL) pen (1 source) Start: 01-03-2025 semaglutide (OZEMPIC) 0.25 mg or 0.5 mg (2 mg/3 mL) pen Indications: Type 2 diabetes mellitus without complication, without long-term current use of insulin ([facility]) , Class 3 severe obesity with serious comorbidity and body mass index (BMI) of 40.0 to 44.9 in adult, unspecified obesity type ([facility]) Inject 0.25 mg subcutaneously one time a week. 1 each 3 01/03/2025 Active traZODone hydrochloride 50 mg oral tablet (20 sources) Serotonin Reuptake Inhibitor Start: 10-26-2023 End: 04-21-2024 take 1 tablet by mouth once daily at bedtime traZODone (DESYREL) 50 mg tablet Indications: Insomnia, unspecified type Take 1 tablet by mouth daily at bedtime. 30 tablet 11 10/26/2023 04/21/2024 Discontinued Comment on above: Take 1 tablet by zarina th daily at bedtime. venlafaxine 37.5 mg oral tablet (3 sources) Serotonin and Norepinephrine Reuptake Inhibitor Start: 12-28-2024 End: 01-03-2025 take 1 tablet by mouth once daily venlafaxine (EFFEXOR) 37.5 mg tablet Indications: Panic attack as reaction to stress , Anxiety Take 1 tablet by mouth once daily. 90 tablet 1 01/03/2025 Active vitamin b12 1 mg oral tablet (2 sources) Vitamin B12 Start: 06-11-2020 cyanocobalamin 1000 mcg oral tablet Dose : 2,000 mcg = 2 tab(s), Oral, qDay, 0 Refill(s) Start Date: 06/11/20 Status: Ordered Vitamin D3 (2 sources) Start: 06-11-2020 Vitamin D3 Dose : 1,000 unit(s) = 1 tab(s), Oral, Daily, 0 Refill(s) Start Date: 06/11/20 Status: Ordered Zinc (20 sources) Start: 06-11-2020 Zinc See Instructions, 1 daily, 0 Refill(s) Start Date: 06/11/20 Status: Ordered End: 04-16-2023 take 1 tablet by mouth once daily Zinc 50 mg tab Take 50 mg by mouth once daily. 0 04/16/2023 Discontinued take 1 tablet by zarina th in the morning zinc 50 MG tablet Take 50 mg by mouth in the morning. 0 Active take 1 tablet by zarina th once daily Zinc 50 mg tab Take 50 mg by mouth once daily. 0 Active Comment on above: Take 50 mg by mouth once daily. zinc gluconate 50 mg oral tablet (2 sources) take 1 tablet by mouth in the morning zinc 50 MG tablet Take 50 mg by mouth in the morning. 0 Active Completed/Discontinued Medications Medication Drug Class(es) Dates Sig (Normalized) Sig (Original) acetaminophen 325 mg / HYDROcodone bitartrate 5 mg oral tablet (16 sources) Opioid Agonist Start: 05-06-2024 End: 05-13-2024 take 1 tablet by mouth every eight hours as needed for pain HYDROcodone-acetam inophen (NORCO) 5-325 mg per tablet Indications: Aftercare following left knee joint replacement surgery Take 1 tablet by mouth every 8 hours as needed for pain for up to 7 days. 20 tablet 05/06/2024 05/13/2024 Start: 09-19-2023 take 1 tablet by zarnia th every six hours as needed Hydrocodone-Acetaminophen Active 1 TABLE T PO EVERY 6 HOURS NEEDED 10 September 19, 2023 Start: 08-15-2018 End: 08-17-2018 take 1 tablet by mouth every four hours as needed Hydrocodone-Acetaminophen Discontinued 1 TABLET PO EVERY 4 HOURS NEEDED 10 August 15, 2018 12:00am August 17, 2018 12:08am amoxicillin 500 mg oral capsule (2 sources) Penicillin-class Antibacterial Start: 03-17-2023 End: 03-27-2023 take 500 mg by mouth three times daily Amoxicillin Discontinued 500 MG PO THREE TIMES A DAY 30 March 16, 2023 11:00pm March 26, 2023 11:06pm ascorbic acid 500 mg oral tablet (20 sources) Vitamin C Start: 02-03-2024 End: 12-28-2024 take 1 tablet by mouth twice daily at mealtime ascorbic acid, vitamin C, (VITAMIN C) 500 mg tablet Take 1 tablet by mouth two times a day with meals for 27 doses. 27 tablet 02/03/2024 2:17 PM EDT 02/03/2024 12/28/2024 Discontinued aspirin 81 mg delayed release oral tablet (20 sources) Platelet Aggregation Inhibitor, Nonsteroidal Anti-inflammatory Drug Start: 02-03-2024 End: 12-28-2024 take 1 tablet by mouth twice daily aspirin, enteric coated (ASPIRIN, ENTERIC COATED) 81 mg EC tablet Take 1 tablet by mouth two times a day for 28 days. 56 tablet 02/03/2024 12/28/2024 Discontinued Start: 10-09-2018 End: 04-16-2023 take 81 mg by mouth once daily Aspirin Discontinued 81 MG PO DAILY October 08, 2018 11:00pm January 05, 2023 7:09am Comment on above: Take 81 mg by mouth once daily. betamethasone 3 mg/ml / betamethasone acetate 3 mg/ml injectable suspension (2 sources) Corticosteroid Start: End: betamethasone acetate-betamethasone sodium phosphate 12 mg injection (CELESTONE) BLOOD PRESSURE MEDICATION (1 source) Start: BLOOD PRESSURE MEDICATION patient advised to bring an updated list of medications to next visit BLOOD PRESSURE MEDICATION Avelina Peralta PA-C citalopram 10 mg oral tablet (7 sources) Serotonin Reuptake Inhibitor Start: 023 End: 023 take 10 mg by mouth once daily Citalopram Discontinued 10 MG PO DAILY August 06, 2022 12:00am January 05, 2023 7:09am cyclobenzaprine hydrochloride 10 mg oral tablet (20 sources) Muscle Relaxant Start: End: take 1 tablet by mouth every twelve hours as needed cyclobenzaprine (FLEXERIL) 10 mg tablet Take 1 tablet by mouth two times a day as needed for up to 7 days. 14 tablet 0 01/08/2024 01/15/2024 Start: 04-28-2022 End: 01-05-2023 take 1 tablet by mouth three times daily cyclobenzaprine (Flexeril) 10 MG tablet Take 10 mg by mouth 3 times daily. 0 04/30/2022 Active 12 hr dextromethorphan hydrobromide 30 mg / guaiFENesin 600 mg extended release oral tablet (8 sources) Uncompetitive B-ofhfyg-K-aspartate Receptor Antagonist, Sigma-1 Agonist Start: 09-07-2024 End: 12-28-2024 take 1 tablet by mouth twice daily dextromethorphan-guaiFENesin (MUCINEX DM) 30-600 mg per tablet Indications: URI, acute Take 1 tablet by mouth two times a day. 20 tablet 09/07/2024 12/28/2024 Discontinued docusate sodium 100 mg oral capsule (20 sources) Start: 02-03-2024 End: 03-04-2024 take 1 capsule by mouth every twelve hours as needed docusate sodium (COLACE) 100 mg capsule Take 1 capsule by mouth two times a day as needed for constipation. 60 capsule 02/03/2024 03/04/2024 ergocalciferol, vitamin D2, (VITAMIN D2 ORAL) (9 sources) End: 01-27-2024 ergocalciferol, vitamin D2, (VITAMIN D2 ORAL) Take by mouth. 0 01/27/2024 Discontinued ergocalciferol, vitamin D2, (VITAMIN D2 ORAL) Take by mouth. 0 Active ferrous sulfate 325 mg oral tablet (20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 supplemental and may not be applicable to specific diabetes management situations: The POC device radiology resident provides a normal range of 4.2% to 6.5% for the HGBA1C POC test. However, the [place] Diabetes Association guidelines indicate that patients with HGBA1C in the range of 5.7% to 6.4% are at increased risk for development of diabetes and that intervention by lifestyle modification may be beneficial. A HGBA1C level greater than or equal to 6.5% is considered diagnostic of diabetes, pending confirmatory testing. Use of HGBA1C testing to evaluate glucose control may not be appropriate for patients with hemoglobin variants or other conditions (e.g. anemia) that alter red blood cell lifespan. Interpretation and review of laboratory results Abnormal [facility] ALBUMIN/CREATININE RATIO, UR INEon 12-28-2024 Albumin Unsp time DL <= 20 mg/L (U) [Mass/Time] 13.5 mg/L [facility] Albumin/Creatinine (U) [Mass ratio] 24 mg/g NINF - 30 mg/g [facility] Comment on above: Adult Male and Femal e Nephrotic Criteria: <30 mg/g is considered normal to mildly increased 30-300 mg/g is considered moderately increased >300 mg/g is considered severely increased KDIGO. (2013). KDIGO 2012 Clinical Practice Guideline for the Evaluation and Management of Chronic Kidney Disease. Official Journal of the International Society of Nephrology, 3(1), 1-150. Creatinine (U) [Mass/Vol] 57.3 mg/dL 42.2 - 237.9 mg/dL [facility] Albumin Unsp time DL <= 20 mg/L (U) [Mass/Time] 13.5 mg/L Normal [facility] Comment on above: Order Comment: Speci men Type: URINE SPECIMEN Ordering Facility: [facility] Address: [address] [place] [address] Performed By: #### U ACR #### [facility] CLIA [id number] [address] Albumin/Creatinine (U) [Mass ratio] 24 mg/g Normal <30 [facility] Comment on above: Order Comment: Speci men Type: URINE SPECIMEN Ordering Facility: [facility] Address: [address] [place] [address] Result Comment: Adul t Male and Female Nephrotic Criteria: <30 mg/g is considered normal to mildly increased 30-300 mg/g is considered moderately increased >300 mg/g is considered severely increased KDIGO. (2013). KDIGO 2012 Clinical Practice Guideline for the Evaluation and Management of Chronic Kidney Disease. Official Journal of the International Society of Nephrology, 3(1), 1-150. Performed By: #### U ACR #### [facility] CLIA [id number] [address] STATES OF [facility] Creatinine (U) [Mass/Vol] 57.3 mg/dL Normal 42.2-237.9 [facility] Comment on above: Order Comment: Speci men Type: URINE SPECIMEN Ordering Facility: [facility] Address: [address] [place] [address] Performed By: #### U ACR #### [facility] CLIA [id number] [address] [place] CNCOon 12-28-2024 CNCO Letter Text Normal [facility] CNOVon 12-28-2024 CNOV Office Visit (AGINTM LW) ----- CADEN LLAMAS ([id number]) 1955 F Date Time Provider Department 12/28/24 10:40 AM MOISES MALCOLMMLAraceli During your visit today, we recorded the following information about you: Temperature Pulse Respiration Blood pressure 98.9 degrees 100/minute 18/minute 126/78 Weight Height 102.1 kg 1.575 m Moises Malcolm, 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 Patient/authorized sales solutions representative agreed to proceed This note was created using [employer]'s Varietyriter. Subjective Caden Llamas is a 69 year old female here today for anxiety. Anxiety and Panic Attacks: - Recent family tragedies: nephew committed suicide by gunshot to the mouth on Thursday; cousin's daughter of a myocardial infarction last night. - Nephew's scheduled for next Thursday, coinciding with Caden's birthday. - Experienced a severe panic attack this morning at work, first in 6-7 months. - Symptoms included dyspnea and chest tightness. - Left work and drove 20 minutes home, describing the drive as feeling like an hour. - Calmed by calling sports therapist for prayer. - History of panic attacks, last episode 7 months ago triggered by an argument with . - Previously took medication for anxiety, but does not recall the name. - Expresses feeling overwhelmed and unsure of what to do. - she also started new job last week at a new company. states the place is filthy. states she hates it. she reports repetitive motions is causing her pain in right shoulder which she already has chronic pain in Depression: - Denies feeling depressed, depressed, depressed. - Recent dental visit caused emotional distress; has broken teeth and ill-fitting dentures. Diabetes: - Diet-controlled. - Last A1c was 5.9. Weight Gain: - Recent weight gain after previous weight loss. - Expresses frustration over weight gain and financial investment in clothing. - Reports overeating and attempting to induce emesis to prevent further weight gain. - Previously took diet pills in the 1970s and 1980s to maintain weight. Right Arm Pain: - Chronic pain due to a torn rotator cuff. - Pain exacerbated by repetitive motion at new job. - Wears a sleeve for support. - Declined recommended surgery for rotator cuff tear. 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 - Describes new job environment as filthy and dirty, with discomfort from fans. - Expresses dissatisfaction with current job and is actively seeking new employment. - Financial stress due to 's recent detention and pending settlement from work injury. ALLERGIES Allergen Reactions Cats Swelling Latex Rash Lisinopril Swelling Tongue swells up Current Outpatient Medications Medication Sig Dispense Refill gabapentin (NEURONTIN) 800 mg tablet Take 1 tablet by mouth three times a day for 180 days. 270 tablet 1 ergocalciferol 50,000 unit capsule (VITAMIN D2, DRISDOL) Take 1 capsule by mouth one time a week. 4 capsule 1 carvedilol (COREG) 12.5 mg tablet Take 1 tablet by mouth two times a day with meals. 180 tablet 0 meclizine (ANTIVERT) 25 mg tab Take 1 tablet by mouth three times a day as needed. 30 tablet 1 amLODIPine (NORVASC) 10 mg tablet Take 1 tablet by mouth once daily. 90 tablet 1 acetaminophen (TYLENOL) 500 mg tablet Take 2 tablets by mouth every 8 hours as needed for pain. 90 tablet 0 omeprazole (PRILOSEC) 40 mg capsule Take 1 capsule by mouth once daily. 90 capsule 1 ferrous sulfate 325 mg (65 mg iron) tablet Take 325 mg by mouth daily with breakfast. albuterol HFA (PROAIR HFA) 90 mcg/actuation inhaler Inhale 1 puff as instructed every 4 hours as needed for wheezing/shortness of breath. 1 each 5 venlafaxine (EFFEXOR) 37.5 mg tablet Take 1 tablet by mouth once daily. 30 tablet 0 ALPRAZolam (XANAX) 0.25 mg tablet Take 1 tablet by mouth three times a day as needed for up to 7 days. 21 tablet 0 CPAP (Patient not taking: Reported on 04/19/2024) No current facility-administered medications for this visit. ACTIVE PROBLEM LIST Climacteric Hypertension Hyperlipidemia With Target Low Density Lipoprotein (Ldl) Cholesterol Less Than 100 Mg/Dl Arthritis of Right Knee Urinary Incontinence Lower Urinary Tract Symptoms (Luts) H/O Brain Aneurysm H/O Stroke (HCC) Asthma (Hcc) Peripheral Neuropathy Weiss (Dyspnea On Exertion) Chest Pain of Uncertain Etiology Stage 2 Chronic Kidney Disease Anemia Anxiety Morbidly Obese (Hcc) Ruth (Obstructive Sleep Apnea) S/P Total Knee Replacement Post-Traumatic Osteoarthritis of Right Shoulder Rotator Cuff Syndrome of Left Shoulder (more content not included)... Normal [facility] CNOVon 11-23-2024 CNOV Office Visit (ORMDNA ) ----- CADEN LLAMAS ([id number]) 1955 F Date Time Provider Department 11/23/24 9:00 AM MELANIE MAGANA ORMDNA During your visit today, we recorded the following information about you: Melanie Magana PA-C 11/23/2024 9:34 AM Signed CHIEF COMPLAINT: Caden Llamas is a 69 year old female who presents today for follow up of left kne pain. HISTORY OF PRESENT ILLNESS: She notes pain is getting worse. She fell onto the knee 2 months ago. She feels the pain is increasing. She has even quit her job because of the knee pain and difficulty rising from a seated position She notes no interval injury. She notes no new musculoskeletal or neurologic complaints. She notes aggravating factors of steps after sitting for a while and management or change of inclines. Treatments so far have included medication (Voltaren Gel), physical therapy (ice man), and the assistive use of a cane. Caden denies new trauma REVIEW OF SYMPTOMS: Constitutional: patient denies any recent fever or significant change in weight Gastrointestinal: patient denies any current abdominal discomfort Musculoskeletal: as noted in the HPI Neurologic: patient denies any peripheral numbness or radiation of pain SOCIAL HISTORY: Tobacco Use: Never SOCIAL HISTORY: Tobacco Use: Never ALLERGIES: ALLERGIES Allergen Reactions Cats Swelling Latex Rash Lisinopril Swelling Tongue swells up PAST MEDICAL HISTORY: PAST MEDICAL HISTORY Diagnosis Date Active asthma (HCC) Anxiety Arthritis of knee, left 10/21/2012 Brain aneurysm (HCC) Diabetes mellitus type 2, uncomplicated (HCC) Diabetes mellitus type 2, uncomplicated (HCC) 10/20/2018 Fibroids Hyperlipidemia LDL goal < 100 02/25/2013 Hypertension Morbidly obese (HCC) 10/20/2018 RUTH (obstructive sleep apnea) 10/20/2018 Peripheral neuropathy 10/20/2018 Pulmonary embolism (HCC) 12/13/2012 Right shoulder injury 10/21/2012 Stroke ([facility]) PHYSICAL EXAMINATION: Patient's vitals and nursing notes were reviewed. Vitals: There were no vitals taken for this visit. General Appearance: Well appearing, alert, in no acute distress, well-hydrated, and well nourished Skin: Skin color, texture, turgor normal, no suspicious rashes or lesions noted Cardiovascular: pedal pulses and radial pulses normal, no signs of upper or lower extremity edema Respiratory: no respiratory distress, no audible wheezing, no labored breathing, symmetric thoracic excursion Musculoskeletal: Knee Musculoskeletal Exam Inspection Right Previous incision: anterior Incision: well-healed Palpation Right Tenderness: present Medial joint line: moderate Patellar tendon: severe Range of Motion Right Active extension: -5 Active flexion: 115 Strength Right Extension: 4/5. Extension is affected by pain. Instability Right Instability signs: none - stable IMAGING: Left knee is is in good position and appears well fixed, with what could be physiologic lucency under anterior femoral flange or a sign of loosening. CLINICAL IMPRESSION / ASSESSMENT: (T84.84XD, Z96.652) Pain due to total left knee replacement, subsequent encounter (primary encounter diagnosis) (M76.52) Patellar tendinitis of left knee (T84.84XA) Pain due to internal orthopedic prosthetic devices, implants and grafts, initial encounter RECOMMENDATION / PLAN: Continue ice and voltaren gel for patellar tendonitis Bone scan to assess for possible loosening. A negative result will be helpfuil but at 10 months post op a positive bone scan may still be normal. Follow up: after advanced imaging is complete to discuss results and next step in management Films prior to visit: No additional imaging warranted. Melanie Magana PA-C Referring Provider: SELF [200] Allergies As of Date: 11/23/2024 Noted Allergy Reaction CATS 02/20/2012 7 - Swelling LATEX 02/20/2012 2 - Rash LISINOPRIL 10/27/2018 7 - Swelling Comments: Tongue swells up Date Reviewed: 11/23/2024 Reviewed by: Simona Van MA - Fully Assessed Reason for Visit: Established Patient [175] Swelling [205] Knee Pain [132] Primary Visit Diagnosis:Pain due to total left knee replacement, subsequent encounter [T84.84XD, Z96.652] Other Visit Diagnoses:Patellar tendinitis of left knee [M76.52] Pain due to internal orthopedic prosthetic devices, implants and grafts, initial encounter [T84.84XA] Order(s):PARKING FOR HANDICAPPED [[id number]] Order #: [id number] NM BONE 3 PHASE [[id number]] Order #: [id number] FUTURE Prescriptions as of 11/23/2024 - ergocalciferol 50,000 unit capsule (VITAMIN D2, DRISDOL) Take 1 capsule by mouth one time a week. - dextromethorphan-guaiFENe sin (MUCINEX DM) 30-600 mg per tablet Take 1 tablet by mouth two times a day. - carvedilol (COREG) 12.5 mg tablet Take 1 tablet by mouth two times a day with meals. (more content not included)... Normal [facility] XR KNEE 3V AP/LAT/MERCHANT L Ton 11-23-2024 XR KNEE 3V AP/LAT/MERCHANT LT * * *Final Report* * * DATE OF EXAM: Nov 23 2024 9:06AM RONAL 5208 - XR KNEE 3V AP/LAT/MERCHANT LT / PROCEDURE REASON: M25.562-Left knee pain, unspecified chronicity * * * * Physician Interpretation * * * * PROCEDURE: Left knee INDICATION: Left knee pain, unspecified chronicity .Pt states she had a fall about 2mths ago and fell on her left knee; states she is having anterior pain of her left knee TECHNIQUE: XR KNEE 3V AP/LAT/MERCHANT LT COMPARISON: 02/15/2024 FINDINGS: The total knee arthroplasty remains in satisfactory position. No periprosthetic lucency or fracture. No joint effusion. 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: ROBB Transcribe Date/Time: Nov 25 2024 7:47A Dictated by : NATHAN BRADLEY MD This examination was interpreted and the report reviewed and electronically signed by: NATHAN BRADLEY MD on Nov 25 2024 7:48AM EST [id number] [facility] Urgent Care Visit Reporton 0 09-12-2024 Urgent Care Visit Report [facility] [address] , [address] [place] [address] OFFICE VISIT Date of Service: 09/12/24 MR#: [id number] Acct: [id number] Name: CADEN LLAMAS Rep #: [id number] : 1955 Provider: LIZZETTE Walls Age/Sex: 69/F Location: [facility] Status: Signed Intake Vital Signs 03/13/24 10:42 Height 5 ft 2 in Intake Visit Reasons: HEADACHE, VOMITING, DIARRHEA Allergies lisinopril Allergy (Unknown, Verified 09/12/24 13:14) Unknown latex Allergy (Verified 09/12/24 13:14) Rash oxycodone (Oxycodone) Adverse Reaction (Verified 09/12/24 13:14) Itching Medications ???Medication ???Instructions ???Recorded ???Confirmed ???Type amlodipine 5 mg tablet 10 mg PO DAILY BLOOD PRESSURE 09/12 0/16 09/12/24 History albuterol sulfate 90 mcg/actuation 2 puff inhalation Q4H PRN 09/12/24 History aerosol inhaler shortness of breath or wheezing gabapentin 800 mg tablet 800 mg PO DAILY nerve pain 3 09/12/24 History atorvastatin 10 mg tablet (Lipitor) 10 mg PO QHS 03/17/23 09/12/24 History levofloxacin 500 mg tablet 500 mg PO DAILY #10 tabs 03/30/23 09/12/24 Rx hydrocodone-acetaminophen 5-325mg 1 tab PO Q6H PRN PRN Pain 3 days 09/19/23 09/12/24 Rx 5mg-325mg #10 TABLETS Have you fallen in the past year?: No Nurse's Note: Patient has BASS, vomiting,diarrhea,RN and coughing . Patient has had some incontinence due to coughing so hard. Patient has been sick since Sat. [facility] Medical History Acute bronchitis, unspecified Acute sinusitis, unspecified Urinary tract infection History of DVT (deep vein thrombosis) Paroxysmal atrial flutter RUTH (obstructive sleep apnea) Anxiety and depression Paroxysmal atrial fibrillation Essential hypertension Contusion of left elbow, initial encounter Encounter for screening for COVID-19 Contact with or suspected exposure to other viral communicable disease History of stroke History of pulmonary embolism Hyperlipidemia Type 2 diabetes mellitus Surgical History History of cerebral aneurysm repair ( 2012) History of shoulder surgery History of carpal tunnel release History of appendectomy History of hysterectomy History of cholecystectomy History of total knee replacement Family History Mother Diabetes Cancer Myocardial infarction Hypertension Father Myocardial infarction Heart disease Hypertension Brother Cancer Hypertension Sister Bipolar disorder Schizophrenia Hypertension Social History Smoking Status: Never smoker alcohol intake: never substance use type: does not use caffeine: Yes Type: carbonated beverages Number of servings: 1 HPI HPI Details: CADEN LLAMAS, is a 69 F who presents to the office today for [facility] evaluation [facility] the [facility] for approximately 48-hour history of persistent cough, BASS, fatigue, congestion/ runny nose, nausea, and diarrhea. Patient notes no complaints of chest pain or shortness of breath or dyspnea on exertion. Several close contacts recently dx???d w/ similar URI complaints. No tzap-fja-lyhkvrk products taken to assist. She is a nonsmoker. No other associated symptoms and no other alleviating/aggravating factors. ROS Const Constitutional: No other (As above) Exam Const General: cooperative, healthy appearing and no acute distress Orientation: alert, awake and oriented x3 HENMT Head: normal to inspection Ears: hearing grossly normal bilaterally, external ears normal, TM's normal bilaterally and EAC's normal Nose: external nose normal, nares normal, septum normal and clear nasal discharge Face and sinus: normal facial exam, sinuses nontender and face symmetric Mouth: oral mucosae normal, lip normal, tongue normal and oropharynx normal Throat: posterior oropharynx normal, tonsils normal, uvula midline and no postnasal drainage Eyes General: appearance normal, both eyes and all related structures Neck Neck: normal visual inspection, full ROM, no lymphadenopathy, no meningeal signs and supple Neck mass: No Thyroid: thyroid normal Lymphatic: no lymphadenopathy noted Chest Chest palpation inspection: normal inspection of the chest Resp Effort Inspection: normal respiratory effort, able to speak in complete sentences and cough Quality of cough: wet (nonproductive in office today) Auscultation: Bilateral: Clear to Auscultation Cardio Palpation: normal PMI Rate: tachycardic Rhythm: regular rhythm Heart Sounds: S1 normal, S2 normal, no gallops, no murmurs and no rubs Pulses: radial pulses present GI/ No CVA tenderness; obese and soft/nontender thro (more content not included)... Normal [facility] 25(OH)D3 [facility] 2024 25-hydroxyvitamin D3 [Mass/Vol] 17.7 ng/mL Low 31.0-80.0 [facility] Comment on above: Order Comment: Speci men Type: BLOOD SPECIMENOrdering Facility: [facility] Address: [address] [place] [address] Result Comment: Clas sification of 25 [place] Vitamin D status: Deficiency/Insufficiency: < or = 30 ng/ml. Sufficiency/Optimal Levels: 31-80 ng/mL Toxicity: > 100 ng/mL. Test performed by chemiluminescent immunoassay. Performed By: #### 1 989-3 ####[facility] [id number] [place] [address] [place] CBC panel Auto (Bld)on 09-10 Erythrocyte distribution width (RBC) [Ratio] 13.9 % Normal 11.5-15.0 [facility] Comment on above: Order Comment: Speci men Type: BLOOD SPECIMENOrdering Facility: [facility] Address: [address] [place] [address] Performed By: #### 5 8410-2 ####[facility] [id number] [place] [address] [place] Hematocrit (Bld) [Volume fraction] 35.4 % Low 36.0-46.0 [facility] Comment on above: Order Comment: Speci men Type: BLOOD SPECIMENOrdering Facility: [facility] Address: [address] [place] [address] Performed By: #### 5 8410-2 ####[facility] [id number] [place] [address] [place] Hemoglobin (Bld) [Mass/Vol] 11.0 g/dL Low 11.5-15.5 [facility] Comment on above: Order Comment: Speci men Type: BLOOD SPECIMENOrdering Facility: [facility] Address: [address] [place] [address] Performed By: #### 5 8410-2 ####[facility] [id number] [place] [address] [place] MCH (RBC) [Entitic mass] 27.0 pg Normal 26.0-34.0 [facility] Comment on above: Order Comment: Speci men Type: BLOOD SPECIMENOrdering Facility: [facility] Address: [address] [place] [address] Performed By: #### 5 8410-2 ####[facility] [id number] [place] [address] [place] MCHC (RBC) [Mass/Vol] 31.1 g/dL Normal 30.5-36.0 [facility] Comment on above: Order Comment: Speci men Type: BLOOD SPECIMENOrdering Facility: [facility] Address: [address] [place] [address] Performed By: #### 5 8410-2 ####[facility] [id number] [place] [address] [place] MCV (RBC) [Entitic vol] 86.8 fL Normal 80.0-100.0 [facility] Comment on above: Order Comment: Speci men Type: BLOOD SPECIMENOrdering Facility: [facility] Address: [address] [place] [address] Performed By: #### 5 8410-2 ####[facility] [id number] [place] [address] [place] Nucleated RBC (Bld) [#/Vol] 10*3/uL Normal <0.01 [facility] Comment on above: Order Comment: Speci men Type: BLOOD SPECIMENOrdering Facility: [facility] Address: [address] [place] [address] Performed By: #### 5 8410-2 ####[facility] [id number] [place] [address] [place] Platelet mean volume (Bld) [Entitic vol] 11.0 fL Normal 9.0-12.7 [facility] Comment on above: Order Comment: Speci men Type: BLOOD SPECIMENOrdering Facility: [facility] Address: [address] [place] [address] Performed By: #### 5 8410-2 ####[facility] [id number] [place] [address] [place] Platelets (Bld) [#/Vol] 231 10*3/uL Normal 150-400 [facility] Comment on above: Order Comment: Speci men Type: BLOOD SPECIMENOrdering Facility: [facility] Address: [address] [place] [address] Performed By: #### 5 8410-2 ####[facility] [id number] [place] [address] [place] RBC (Bld) [#/Vol] 4.08 10*6/uL Normal 3.90-5.20 [facility] Comment on above: Order Comment: Speci men Type: BLOOD SPECIMENOrdering Facility: [facility] Address: [address] [place] [address] Performed By: #### 5 8410-2 ####[facility] [id number] [place] [id number] [place] WBC (Bld) [#/Vol] 5.29 10*3/uL Normal 3.70-11.00 [facility] Comment on above: Order Comment: Speci men Type: BLOOD SPECIMENOrdering Facility: [facility] Address: [address] [place] [address] Performed By: #### 5 8410-2 ####[facility] [id number] [address] [place] [id number] [place] CNOVon 09-10-2024 CNOV Office Visit (UCWSTR ) ----- FRANCISCADEN ALEX ([id number]) 1955 F Date Time Provider Department 09/10/24 8:[address] [facility] During your visit today, we recorded the following information about you: Temperature Pulse Respiration Blood pressure 97 degrees 72/minute 22/minute 125/83 Weight 101 kg Catie Stevenson MD 09/10/2024 8:43 AM Signed Patient presents with: Eye Problem: R eye matted shut, swelling x 2 days Rhinitis: Runny nose, headache, cough, causing urination x 4 days No improvement HPI: Feeling sick for 1 to 2 weeks. Seen here 09/07/24 with viral URI symptoms. She returns because she is still sick and could not go the the other clinic where she normally gets colace and a zpak for my upper respiratory infection. Positive symptoms: Cough, Sinus pressure, Nasal Congestion, Rhinorrhea, urinary stress incontinence, resolved Diarrhea, watery right eye Negative symptoms: Shortness of breath, Fever, Vomiting, OTC: Cold Medicine with honey Denies history of COPD. MEDICATIONS: Current Outpatient Medications Medication Sig dextromethorphan-guaiFENe sin (MUCINEX DM) 30-600 mg per tablet Take 1 tablet by mouth two times a day. carvedilol (COREG) 12.5 mg tablet Take 1 tablet by mouth two times a day with meals. meclizine (ANTIVERT) 25 mg tab Take 1 tablet by mouth three times a day as needed. ramelteon (ROZEREM) 8 mg tablet Take 1 tablet by mouth daily at bedtime. oxybutynin XL (DITROPAN XL) 5 mg 24 hr tablet Take 1 tablet by mouth once daily. amLODIPine (NORVASC) 10 mg tablet Take 1 tablet by mouth once daily. gabapentin (NEURONTIN) 800 mg tablet Take 1 tablet by mouth three times a day for 180 days. acetaminophen (TYLENOL) 500 mg tablet Take 2 tablets by mouth every 8 hours as needed for pain. ascorbic acid, vitamin C, (VITAMIN C) 500 mg tablet Take 1 tablet by mouth two times a day with meals for 27 doses. aspirin, enteric coated (ASPIRIN, ENTERIC COATED) 81 mg EC tablet Take 1 tablet by mouth two times a day for 28 days. omeprazole (PRILOSEC) 40 mg capsule Take 1 capsule by mouth once daily. ergocalciferol 50,000 unit capsule (VITAMIN D2, DRISDOL) Take 1 capsule by mouth one time a week. albuterol HFA (PROAIR HFA) 90 mcg/actuation inhaler Inhale 1 Puff as instructed every 4 hours as needed for wheezing/shortness of breath. ferrous sulfate 325 mg (65 mg iron) tablet Take 325 mg by mouth daily with breakfast. CPAP (Patient not taking: Reported on 04/19/2024) No current facility-administered medications for this visit. ALLERGIES: ALLERGIES Allergen Reactions Cats Swelling Latex Rash Lisinopril Swelling Tongue swells up VITALS: BP 125/83 Pulse 72 Temp 36.1 ?C (97 ?F) Resp 22 Wt 101 kg (222 lb 10.6 oz) SpO2 99% BMI 40.73 kg/m? PHYSICAL EXAM: GEN: mildly ill appearing HEENT: PERRL, EOMI, left conjunctiva clear, watery discharge from right eye with trace injection and trace periocular erythema Ears: canals clear. TMs without erythema, bulge, or effusion Sinuses: non-tender frontal sinus, non-tender maxillary sinuses Throat: moist mucous membranes, mild erythema, no exudate Neck: supple, no thyromegaly, no lymphadenopathy HEART: regular rate, regular rhythm, no murmurs LUNGS: clear to auscultation, no wheezes or crackles, no increased WOB ASSESSMENT/PLAN: 1. Sinobronchitis - ICD9: 473.9, 490, ICD10: J32.9, J40 Inconsistent historian, but probably has had sinus symptoms for over 1 week. Negative COVID, flu, RSV here 3 days ago. Treat for secondary bacterial sinusitis. Zpak is not recommended first or second line for sinus infections. - DOXYCYCLINE MONOHYDRATE 100 MG CAPSULE - BENZONATATE 100 MG CAPSULE Provided work note for yesterday. Catie Stevenson MD Allergies As of Date: 09/10/2024 Noted Allergy Reaction CATS 02/20/2012 7 - Swelling LATEX 02/20/2012 2 - Rash LISINOPRIL 10/27/2018 7 - Swelling Comments: Tongue swells up Date Reviewed: 09/10/2024 Reviewed by: Alexandra Jamison LPN - Fully Assessed Reason for Visit: Eye Problem [43] Cmt: R eye matted shut, swelling x 2 days Rhinitis [369] Cmt: Runny nose, headache, cough, causing urination x 4 days No improvement Primary Visit Diagnosis:Sinobronchitis [J32.9, J40] Order(s):doxycycline monohydrate (MONODOX) 100 mg capsuleTake 1 capsule by mouth two times a day for 5 days.Disp: 10 capsuleRfl: 0 benzonatate (TESSALON PERLE) 100 mg capsuleTake 1 capsule by mouth every 8 hours as needed for cough for up to 15 days.Disp: 30 capsuleRfl: 0 Prescriptions as of 09/10/2024 - doxycycline monohydrate (MONODOX) 100 mg capsule Take 1 capsule by mouth two times a day for 5 days. - benzonatate (TESSALON PERLE) 100 mg capsule Take 1 capsule by mouth every 8 hours as needed for cough for up to 15 days. - dextromethorphan-guaiFENe sin (MUCINEX DM) 30-600 mg per tablet Take 1 table (more content not included)... Normal [facility] Comprehensive metabolic 2000 panelon 09-10-2024 Albumin [Mass/Vol] 4.0 g/dL Normal 3.9-4.9 [facility] Comment on above: Order Comment: Speci men Type: BLOOD SPECIMENOrdering Facility: [facility] Address: [address] [place] [address] Performed By: #### 2 4323-8, 04645-9, 3016-3 ####[facility] LABCLIA [id number] [place] [address] [place] ALP [Catalytic activity/Vol] 138 U/L High 34-123 [facility] Comment on above: Order Comment: Speci men Type: BLOOD SPECIMENOrdering Facility: [facility] Address: [address] [id number] Performed By: #### 2 4323-8, 29437-6, 3 ####[facility] LABCLIA [id number] [address] [address] [place] ALT [Catalytic activity/Vol] 8 U/L Normal 7-38 [facility] Comment on above: Order Comment: Speci men Type: BLOOD SPECIMENOrdering Facility: [facility] Address: [address] [place], [place] [id number] Performed By: #### 2 4323-8, 70863-3, 3 ####[facility] LABCLIA [id number] [place] [id number] [place] Anion gap [Moles/Vol] 11 mmol/L Normal 8-15 [facility] Comment on above: Order Comment: Speci men Type: BLOOD SPECIMENOrdering Facility: [facility] Address: [address] [place], [place] [address] Performed By: #### 2 4323-8, 53149-5, 3 ####[facility] LABCL[facility] [id number] [place] [id number] [place] AST [Catalytic activity/Vol] 18 U/L Normal 13-35 [facility] Comment on above: Order Comment: Speci men Type: BLOOD SPECIMENOrdering Facility: [facility] Address: [address] [place], [place] [id number] Performed By: #### 2 4323-8, 24908-7, 3 ####[facility]CL[facility] [id number] [address] [address] [place] Bilirubin [Mass/Vol] 0.3 mg/dL Normal 0.2-1.3 [facility] Comment on above: Order Comment: Speci men Type: BLOOD SPECIMENOrdering Facility: [facility] Address: [address] [place] [address] Performed By: #### 2 4323-8, 14097-7, 6-3 ####[facility]CL[facility] [id number] [address] [address] [place] Calcium [Mass/Vol] 9.1 mg/dL Normal 8.5-10.2 [facility] Comment on above: Order Comment: Speci men Type: BLOOD SPECIMENOrdering Facility: [facility] Address: [address] [place] [address] Performed By: #### 2 4323-8, 52239-2, 3015-3 ####[facility]CL[facility] [id number] [address] [address] [place] Chloride [Moles/Vol] 105 mmol/L Normal 98-107 [facility] Comment on above: Order Comment: Speci men Type: BLOOD SPECIMENOrdering Facility: [facility] Address: [address] [place] [address] Performed By: #### 2 4323-8, 86161-6, 3015-3 ####[facility]CL[facility] [id number] [address] [address] [place] CO2 [Moles/Vol] 23 mmol/L Normal 22-30 [facility] Comment on above: Order Comment: Speci men Type: BLOOD SPECIMENOrdering Facility: [facility] Address: [address] [place] [address] Performed By: #### 2 4323-8, 20324-6, 3015-3 ####[facility] LABIA [id number] [address] [address] [place] Creatinine [Mass/Vol] 1.03 mg/dL High 0.58-0.96 [facility] Comment on above: Order Comment: Speci men Type: BLOOD SPECIMENOrdering Facility: [facility] Address: [address] [place] [address] Performed By: #### 2 4323-8, 86134-4, 3016-3 ####[facility] LABIA [id number] [place] [id number] [place] Creatinine and Glomerular filtration rate.predicted panel (S/P/Bld) 59 mL/min/1.73m??? Low >=60 [facility] Comment on above: Order Comment: Gia gramajo Type: BLOOD SPECIMENOrdering Facility: [facility] Address: [address] [place] [address] Result Comment: Reshma mated Glomerular Filtration Rate (eGFR) is calculated using the 2020 CKD-EPI creatinine equation. This equation utilizes serum creatinine, sex, and age as parameters. The creatinine assay has traceable calibration to isotope dilution-mass spectrometry. Refer to KDIGO guidelines for clinical interpretation. In patients with unstable renal function, e.g. those with acute kidney injury, the eGFR may not accurately reflect actual GFR. Performed By: #### 2 4323-8, 32940-5, 6-3 ####[facility] LABIA [id number] [place] [id number] [place] Glucose [Mass/Vol] 89 mg/dL Normal 74-99 [facility] Comment on above: Order Comment: Gia gramajo Type: BLOOD SPECIMENOrdering Facility: [facility] Address: [address] [place] [address] Result Comment: The [place] Diabetes Association (ADA) provides guidance for cutoff values for fasting glucose and random glucose. The ADA defines fasting as no caloric intake for at least 8 hours. Fasting plasma glucose results between 100 to 125 mg/dL indicate increased risk for diabetes (prediabetes). Fasting plasma glucose results greater than or equal to 126 mg/dL meet the criteria for diagnosis of diabetes. In the absence of unequivocal hyperglycemia, results should be confirmed by repeat testing. In a patient with classic symptoms of hyperglycemia or hyperglycemic crisis, random plasma glucose results greater than or equal to 200 mg/dL meet the criteria for diagnosis of diabetes. Reference: Standards of Medical Care in Diabetes 2016, [place] Diabetes Association. Diabetes Care. 2016.39(Suppl 1). Performed By: #### 2 4323-8, 51134-6, 3015-3 ####[facility]CL[facility] [id number] [address] [address] [place] Potassium [Moles/Vol] 3.8 mmol/L Normal 3.7-5.1 [facility] Comment on above: Order Comment: Speci men Type: BLOOD SPECIMENOrdering Facility: [facility] Address: [address] [place], [place] [address] Performed By: #### 2 4323-8, 63064-9, 3015-3 ####[facility]CL[facility] [id number] [address] [address] [place] Protein [Mass/Vol] 7.4 g/dL Normal 6.3-8.0 [facility] Comment on above: Order Comment: Speci men Type: BLOOD SPECIMENOrdering Facility: [facility] Address: [address] [place], [place] [address] Performed By: #### 2 4323-8, 86767-4, 3015-3 ####[facility] LABIA [id number] [address] [address] [place] Sodium [Moles/Vol] 139 mmol/L Normal 136-144 [facility] Comment on above: Order Comment: Speci men Type: BLOOD SPECIMENOrdering Facility: [facility] Address: [address] [place] [address] Performed By: #### 2 4323-8, 60166-1, 3 ####[facility] LABIA [id number] [address] [address] [place] Urea nitrogen [Mass/Vol] 9 mg/dL Normal 7-21 [facility] Comment on above: Order Comment: Speci men Type: BLOOD SPECIMENOrdering Facility: [facility] Address: [address] [place] [address] Performed By: #### 2 4323-8, 21108-6, 3016-3 ####[facility]CL[facility] [id number] [address] [address] [place] Lipid 1996 panelon 5 Cholesterol [Mass/Vol] 193 mg/dL Normal <200 [facility] Comment on above: Order Comment: Speci men Type: BLOOD SPECIMENOrdering Facility: [facility] Address: [address] [place] [address] Result Comment: <200 mg/dL, Desirable 200-239 mg/dL, Borderline high >239 mg/dL, High Performed By: #### 2 4323-8, 38574-8, 3015-3 ####[facility] LABCLIA [id number] [place] [id number] [place] Cholesterol in HDL [Mass/Vol] 56 mg/dL Normal >39 [facility] Comment on above: Order Comment: Speci men Type: BLOOD SPECIMENOrdering Facility: [facility] Address: [address] [place] [address] Result Comment: 40-5 9 mg/dL, Acceptable >59 mg/dL, High: Negative risk factor for coronary heart disease <40 mg/dL, Low: Positive risk factor for coronary heart disease Performed By: #### 2 4323-8, 82160-8, 3015-3 ####[facility]CL[facility] [id number] [address] [address] [place] Cholesterol in LDL [Mass/Vol] 110 mg/dL High <100 [facility] Comment on above: Order Comment: Speci men Type: BLOOD SPECIMENOrdering Facility: [facility] Address: [address] [place] [address] Result Comment: <100 mg/dL, Optimal 100-129 mg/dL, Near optimal/above optimal 130-159 mg/dL, Borderline high 160-189 mg/dL, High >189 mg/dL, Very high Secondary prevention optimal LDL Cholesterol levels are recommended to be < 70 mg/dL Performed By: #### 2 4323-8, 55488-4, 3015-3 ####[facility]CL[facility] [id number] [place] [id number] [place] Cholesterol in LDL/Cholesterol in HDL [Mass ratio] 1.96 {ratio} Normal <2.54 [facility] Comment on above: Order Comment: Gia gramajo Type: BLOOD SPECIMENOrdering Facility: [facility] Address: [address] [place] [address] Result Comment: Refe kikece: 1. National Cholesterol Education Program ATP III Guideline At-A-Glance Quick Desk Reference: National Heart, Lung, and Blood [place]. National Institutes of Health. 2001: NIH Publication No. 01-3305. 2. An International Atherosclerosis Society position paper: global recommendations for the management of dyslipidemia: executive summary, Atherosclerosis. 2014: 232(2):410-413. Performed By: #### 2 4323-8, 48339-3, 3016-3 ####[facility] LABCLIA [id number] [place] [address] [place] Cholesterol in VLDL [Mass/Vol] 27 mg/dL Normal <30 [facility] Comment on above: Order Comment: Gia gramajo Type: BLOOD SPECIMENOrdering Facility: [facility] Address: [address] [place] [address] Performed By: #### 2 4323-8, 37184-0, 3016-3 ####[facility]CLIA [id number] [place] [address] [place] Cholesterol non HDL [Mass/Vol] 137 mg/dL High <130 [facility] Comment on above: Order Comment: Farzanai men Type: BLOOD SPECIMENOrdering Facility: [facility] Address: [facility] [place] [address] Result Comment: <130 mg/dL, Optimal 130-159 mg/dL, Near optimal/above optimal 160-189 mg/dL, Borderline high 190-219 mg/dL, High >219 mg/dL, Very high Secondary prevention optimal non HDL Cholesterol levels are recommended to be <100 mg/dL Performed By: #### 2 4323-8, 50272-3, 3016-3 ####[facility]CL[facility] [id number] [address] [place] [address] [place] Cholesterol.total/Cho lesterol in HDL [Mass ratio] 3.45 {ratio} Normal <5.10 [facility] Comment on above: Order Comment: Speci men Type: BLOOD SPECIMENOrdering Facility: [facility] Address: [address] [place] [address] Performed By: #### 2 4323-8, 39415-6, 6-3 ####[facility] LABIA [id number] [address] [address] [place] FASTING TIME 12 hrs Normal [facility] Comment on above: Order Comment: Speci men Type: BLOOD SPECIMENOrdering Facility: [facility] Address: [address] [place] [address] Performed By: #### 2 4323-8, 76797-9, 3015-3 ####[facility] LABIA [id number] [address] [place] [address] [place] Triglyceride [Mass/Vol] 136 mg/dL Normal <150 [facility] Comment on above: Order Comment: Speci men Type: BLOOD SPECIMENOrdering Facility: [facility] Address: [address] [place] [address] Result Comment: <150 mg/dL, Normal 150-199 mg/dL, Borderline high 200-499 mg/dL, High >499 mg/dL, Very high Performed By: #### 2 4323-8, 02076-4, 6-3 ####[facility]IA [id number] [address] [place] [address] [place] TSH SerPl-aCncon 09-10-2024 TSH Qn 0.468 m[IU]/L Normal 0.270-4.200 [facility] Comment on above: Order Comment: Speci men Type: BLOOD SPECIMENOrdering Facility: [facility] Address: [address] [place] [address] Performed By: #### 2 4323-8, 24929-0, 3016-3 ####[facility] NNAMDI [id number] [place] [address] [place] CNOVon 09-07-2024 CNOV Office Visit (UCWSTR ) ----- CADEN LLAMAS ([id number]) 1955 F Date Time Provider Department 09/07/24 9:[address] [facility] During your visit today, we recorded the following information about you: Temperature Pulse Respiration Blood pressure 97.2 degrees 69/minute 18/minute 132/82 Weight 100.9 kg Catie Stevenson MD 09/07/2024 9:40 AM Signed Patient presents with: Cough: Cough, runny nose,m ST, BASS and diarrhea x 11 days HPI: Feeling sick for 1 1/2 weeks. Evaluated by PCP for vertigo 8 days ago and admits she was not sick until after then. She says she was treated here last month for something similar and the antibiotic did nothing (treated by me 07/07/24 with augmentin for 1 week URI with possible secondary bacterial sinusitis). She was sent home from work for vomiting today. She finds it difficult to work with her nose running. Positive symptoms: Cough, Sore throat, Nasal Congestion, Rhinorrhea, Headache, Diarrhea, last night had Shortness of breath/Fever/Chills, Negative symptoms: blood in emesis or stool, OTC: Cold Medicine, Ibuprofen, Tylenol. She cannot do nose sprays. PAST MEDICAL HISTORY Diagnosis Date Active asthma Anxiety Arthritis of knee, left 10/21/2012 Brain aneurysm Diabetes mellitus type 2, uncomplicated (HCC) Diabetes mellitus type 2, uncomplicated (HCC) 10/20/2018 Fibroids Hyperlipidemia LDL goal < 100 02/25/2013 Hypertension Morbidly obese ([facility]) 10/20/2018 RUTH (obstructive sleep apnea) 10/20/2018 Peripheral neuropathy 10/20/2018 Pulmonary embolism (HCC) 12/13/2012 Right shoulder injury 10/21/2012 Stroke ([facility]) MEDICATIONS: Current Outpatient Medications Medication Sig carvedilol (COREG) 12.5 mg tablet Take 1 tablet by mouth two times a day with meals. meclizine (ANTIVERT) 25 mg tab Take 1 tablet by mouth three times a day as needed. ramelteon (ROZEREM) 8 mg tablet Take 1 tablet by mouth daily at bedtime. oxybutynin XL (DITROPAN XL) 5 mg 24 hr tablet Take 1 tablet by mouth once daily. amLODIPine (NORVASC) 10 mg tablet Take 1 tablet by mouth once daily. gabapentin (NEURONTIN) 800 mg tablet Take 1 tablet by mouth three times a day for 180 days. acetaminophen (TYLENOL) 500 mg tablet Take 2 tablets by mouth every 8 hours as needed for pain. ascorbic acid, vitamin C, (VITAMIN C) 500 mg tablet Take 1 tablet by mouth two times a day with meals for 27 doses. aspirin, enteric coated (ASPIRIN, ENTERIC COATED) 81 mg EC tablet Take 1 tablet by mouth two times a day for 28 days. omeprazole (PRILOSEC) 40 mg capsule Take 1 capsule by mouth once daily. ergocalciferol 50,000 unit capsule (VITAMIN D2, DRISDOL) Take 1 capsule by mouth one time a week. albuterol HFA (PROAIR HFA) 90 mcg/actuation inhaler Inhale 1 Puff as instructed every 4 hours as needed for wheezing/shortness of breath. ferrous sulfate 325 mg (65 mg iron) tablet Take 325 mg by mouth daily with breakfast. CPAP (Patient not taking: Reported on 04/19/2024) No current facility-administered medications for this visit. ALLERGIES: ALLERGIES Allergen Reactions Cats Swelling Latex Rash Lisinopril Swelling Tongue swells up VITALS: BP 132/82 Pulse 69 Temp 36.2 ?C (97.2 ?F) (Tympanic) Resp 18 Wt 100.9 kg (222 lb 7.1 oz) SpO2 97% BMI 40.69 kg/m? PHYSICAL EXAM: GEN: mildly ill appearing HEENT: PERRL, EOMI, conjunctiva clear Ears: canals clear. TMs without erythema, bulge, or effusion Sinuses: non-tender frontal sinus, non-tender maxillary sinuses Throat: moist mucous membranes, mild erythema, no exudate Neck: supple, no thyromegaly, no lymphadenopathy HEART: regular rate, regular rhythm, no murmurs LUNGS: clear to auscultation, no wheezes or crackles, no increased WOB ABD: Soft, non-distended, non-tender, no masses ASSESSMENT/PLAN: 1. URI, acute - ICD9: 465.9, ICD10: J06.9 - suspect viral URI: influenza A is prevalent in the community, differential includes COVID-19. History is inconsistent, but she admits to worsening a few days ago. - Discussed supportive care treatment with rest, cold medicine, and analgesia. Safety of symptom medication choices are limited by health conditions and medication interactions (hypertension, anticholinergics, age, nasal application discomfort). - MUCINEX DM 30 MG-600 MG TABLET,EXTENDED RELEASE 12 HR - COVID AND INFLUENZA A/B AND RSV PCR, ROUTINE - probably outside the therapeutic window for antiviral medication. - Red flags to seek further treatment include chest pain, shortness of breath, and lethargy; in the ER if severe. Catie Stevenson MD Allergies As of Date: 09/07/2024 Noted Allergy Reaction CATS 02/20/2012 7 - Swelling LATEX 02/20/2012 2 - Rash LISINOPRIL 10/27/2018 7 - Swelling Comments: Tongue swells up Date Reviewed: 09/07/2024 Reviewed by: Stacy Oleary LPN - Fully Assessed Reason for Visi (more content not included)... Normal [facility] CNOVon 09-02-2024 CNOV Office Visit (ORMDNA ) ----- CADEN LLAMAS ([id number]) 1955 F Date Time Provider Department 09/02/24 2:30 PM MAKAYLA BRADLEY During your visit today, we recorded the following information about you: Makayla Bradley MD 09/30/2024 10:[address] BRADLEY- POST-OP KNEE ===== Post-Op F/U Office Visit ===== Caden Llamas presents today for a 7 months status post Left TKA. Post-operative recovery was uneventful. Patient's rating of condition: improving Comments: Patient reports having fallen about a month ago and experienced some increase in pain but this has improved Does the Pt. still experience pain? PAIN EVALUATION 09/02/2024 0913 Pain Level: 6 Pain Location: Knee-Left Description: Aching;Cramping;Sore;Thro bbing Duration Amount of Time: 5 Duration Units: Hours Frequency: Continuous Functional difficulties: Stair climbing Physical Therapy: Completed course of therapy Pain Medication: Non-narcotic Ambulating without assistance. Medications and Allergies reviewed and verified. ===== EXAM: ===== GEN: AANDO x3, NAD SKIN:Appropriate postop appearance Incision intact Incision well healed LeftKnee: ROM: Flexion/Extension:5 degrees to 110 degrees Pain with ROM:No Mal-alignment: No Effusion: None Tender to palpation of the medial joint line(s). 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 Some of this may be related to her previously reported fall. She does not appear to have sustained any injuries that would compromise the improvement of her knee. I have recommended that she continue her independent range of motion/strengthening exercises. Plan: 1. Continue weightbearing as tolerated 2. Continue range of motion/strengthening exercises 3. Follow-up for repeat clinical evaluation. Makayla Bradley MD Electronic Signature Allergies As of Date: 09/02/2024 Noted Allergy Reaction CATS 02/20/2012 7 - Swelling LATEX 02/20/2012 2 - Rash LISINOPRIL 10/27/2018 7 - Swelling Comments: Tongue swells up Date Reviewed: 09/02/2024 Reviewed by: Elli Bland OCCA - Fully Assessed Reason for Visit: Follow Up [171] Knee Replacement [363] Primary Visit Diagnosis:Status post total left knee replacement [Z96.652] Order(s):PARKING FOR HANDICAPPED [[id number]] Order #: [id number] Prescriptions as of 09/30/2024 - ergocalciferol 50,000 unit capsule (VITAMIN D2, DRISDOL) Take 1 capsule by mouth one time a week. - dextromethorphan-guaiFENe sin (MUCINEX DM) 30-600 mg per tablet Take 1 tablet by mouth two times a day. - carvedilol (COREG) 12.5 mg tablet Take 1 tablet by mouth two times a day with meals. - meclizine (ANTIVERT) 25 mg tab Take 1 tablet by mouth three times a day as needed. - ramelteon (ROZEREM) 8 mg tablet Take 1 tablet by mouth daily at bedtime. - oxybutynin XL (DITROPAN XL) 5 mg 24 hr tablet Take 1 tablet by mouth once daily. - amLODIPine (NORVASC) 10 mg tablet Take 1 tablet by mouth once daily. - gabapentin (NEURONTIN) 800 mg tablet Take 1 tablet by mouth three times a day for 180 days. - acetaminophen (TYLENOL) 500 mg tablet Take 2 tablets by mouth every 8 hours as needed for pain. - ascorbic acid, vitamin C, (VITAMIN C) 500 mg tablet Take 1 tablet by mouth two times a day with meals for 27 doses. - aspirin, enteric coated (ASPIRIN, ENTERIC COATED) 81 mg EC tablet Take 1 tablet by mouth two times a day for 28 days. - omeprazole (PRILOSEC) 40 mg capsule Take 1 capsule by mouth once daily. - albuterol HFA (PROAIR HFA) 90 mcg/actuation inhaler Inhale 1 Puff as instructed every 4 hours as needed for wheezing/shortness of breath. - ferrous sulfate 325 mg (65 mg iron) tablet Take 325 mg by mouth daily with breakfast. - CPAP Problem List As Of Date 09/02/2024 Noted Resolved Climacteric [N95.1] 03/23/2012 Arthritis of knee, left [M17.12] 10/21/2012 10/20/2018 Right shoulder injury [S49.91XA] 10/21/2012 10/20/2018 Hypertension [I10] 10/21/2012 Type II or unspecified type diabetes mellitus w*10/21/2012 10/20/2018 H/O Pulmonary embolism (HCC) [I26.99] 12/13/2012 04/16/2023 Hyperlipidemia with target low density lipoprot*02/25/2013 Arthritis of right knee [M17.11] 05/21/2013 Rotator cuff disorder [M67.919] 05/21/2013 10/20/2018 Urinary incontinence [R32] 10/04/2015 Lower urinary tract symptoms (LUTS) [R39.9] 10/04/2015 H/O Brain Aneurysm [I67.1] 10/20/2018 H/O Stroke (more content not included)... Normal [facility] 09-01-2024 ELIZAN Telephone (AGINTMLW) ----- CADEN LLAMAS ([id number]) 1955 F Date Time Provider Department 09/01/24 MOISES MALCOLM During your visit today, we recorded the following information about you: Joanne Jaimes LPN 09/01/2024 11:57 AM Signed Prior auth from Ramelteon 8 mg was completed. Awaiting approval or denial form insurance. 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 - meclizine (ANTIVERT) 25 mg tab Take 1 tablet by mouth three times a day as needed. - ramelteon (ROZEREM) 8 mg tablet Take 1 tablet by mouth daily at bedtime. - oxybutynin XL (DITROPAN XL) 5 mg 24 hr tablet Take 1 tablet by mouth once daily. - amLODIPine (NORVASC) 10 mg tablet Take 1 tablet by mouth once daily. - gabapentin (NEURONTIN) 800 mg tablet Take 1 tablet by mouth three times a day for 180 days. - acetaminophen (TYLENOL) 500 mg tablet Take 2 tablets by mouth every 8 hours as needed for pain. - ascorbic acid, vitamin C, (VITAMIN C) 500 mg tablet Take 1 tablet by mouth two times a day with meals for 27 doses. - aspirin, enteric coated (ASPIRIN, ENTERIC COATED) 81 mg EC tablet Take 1 tablet by mouth two times a day for 28 days. - omeprazole (PRILOSEC) 40 mg capsule Take 1 capsule by mouth once daily. - ergocalciferol 50,000 unit capsule (VITAMIN D2, DRISDOL) Take 1 capsule by mouth one time a week. - albuterol HFA (PROAIR HFA) 90 mcg/actuation inhaler Inhale 1 Puff as instructed every 4 hours as needed for wheezing/shortness of breath. - ferrous sulfate 325 mg (65 mg iron) tablet Take 325 mg by mouth daily with breakfast. - CPAP Problem List As Of Date 09/01/2024 Noted Resolved Climacteric [N95.1] 03/23/2012 Arthritis of knee, left [M17.12] 10/21/2012 10/20/2018 Right shoulder injury [S49.91XA] 10/21/2012 10/20/2018 Hypertension [I10] 10/21/2012 Type II or unspecified type diabetes mellitus w*10/21/2012 10/20/2018 H/O Pulmonary embolism (HCC) [I26.99] 12/13/2012 04/16/2023 Hyperlipidemia with target low density lipoprot*02/25/2013 Arthritis of right knee [M17.11] 05/21/2013 Rotator cuff disorder [M67.919] 05/21/2013 10/20/2018 Urinary incontinence [R32] 10/04/2015 Lower urinary tract symptoms (LUTS) [R39.9] 10/04/2015 H/O Brain Aneurysm [I67.1] 10/20/2018 H/O Stroke (HCC) [I63.9] 10/20/2018 Asthma [J45.909] 10/20/2018 Diabetes mellitus type 2, uncomplicated (HCC) [*10/20/2018 04/19/2024 Peripheral neuropathy [G62.9] 10/20/2018 WEISS (dyspnea on exertion) [R06.09] 10/20/2018 Chest pain of uncertain etiology [R07.9] 10/20/2018 Stage 2 chronic kidney disease [N18.2] 10/20/2018 Anemia [D64.9] 10/20/2018 Anxiety [F41.9] 10/20/2018 Morbidly obese (HCC) [E66.01] 10/20/2018 RUTH (obstructive sleep apnea) [G47.33] 10/20/2018 S/P total knee replacement [Z96.659] 10/27/2018 Post-traumatic osteoarthritis of right shoulder*08/02/2019 Rotator cuff syndrome of left shoulder [M75.102]11/02/2019 Atrial fibrillation (HCC) [I48.91] 04/16/2023 Obesity, Class III, BMI >= 40 [E66.01] 02/02/2024 S/P total knee arthroplasty, left [Z96.652] 02/03/2024 Encounter Status:Closed by JOANNE JAIMES on 09/01/24 Normal [facility] Bacteria Ur Culton 5 Bacteria identified Cx Nom (U) CULTURE, URINE: 10,000-<50,000 CFU/ml Normal Urogenital Yvonne Normal [facility] Comment on above: Performed By: #### 6 30-4 #### [facility] CLIA [id number] [address] OF [facility] CNOVon 08-30-2024 CNOV Office Visit (AGINTM LW) ----- CADEN LLAMAS ([id number]) 1955 F Date Time Provider Department 08/30/24 1:40 PM MOISES MALCOLM During your visit today, we recorded the following information about you: Pulse Respiration Blood pressure Weight 78/minute 18/minute 122/76 101.1 kg Height 1.575 m Moises Malcolm, 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 Subjective Caden Llamas is a 69 year old female here today for acute visit for complaints of vertigo. She reports episode started about 2-3 wks ago. Reports hx of vertigo. Last episode ~2 yrs ago. Her previous PCP gave her meclizine which was helpful. She reports she gets off balance. States when she is up walking she will fall. She reports this is same symptoms she had 2 yrs ago. States she did see neurologist in the past and they dx her with vertigo. She reports she knows its vertigo. She reports she has fallen several times due to dizziness. She started pain in left knee where she had a replacement in 01/2024. States she has an appt with her ortho this Thursday. States she has hard time walking on it She reports having increase frequency of urination at night. States she is up every hour urinating. She reports cutting back on her caffeine and water intake. She has had this for years. States she has seen urologist in the past and they wanted her to cath herself at night which she states she was not going to do. Denies fever, chills, flank or abd pain, dysuria or blood in urine. Only occurs at night. Denies symptoms during day. Reports does not drink caffeine and limits beverages after 2 pm. ALLERGIES Allergen Reactions Cats Swelling Latex Rash Lisinopril Swelling Tongue swells up Current Outpatient Medications Medication Sig Dispense Refill ramelteon (ROZEREM) 8 mg tablet Take 1 tablet by mouth daily at bedtime. 30 tablet 5 amLODIPine (NORVASC) 10 mg tablet Take 1 tablet by mouth once daily. 90 tablet 1 gabapentin (NEURONTIN) 800 mg tablet Take 1 tablet by mouth three times a day for 180 days. 270 tablet 1 acetaminophen (TYLENOL) 500 mg tablet Take 2 tablets by mouth every 8 hours as needed for pain. 90 tablet 0 ascorbic acid, vitamin C, (VITAMIN C) 500 mg tablet Take 1 tablet by mouth two times a day with meals for 27 doses. 27 tablet 0 aspirin, enteric coated (ASPIRIN, ENTERIC COATED) 81 mg EC tablet Take 1 tablet by mouth two times a day for 28 days. 56 tablet 0 carvedilol (COREG) 12.5 mg tablet 1 tablet two times a day with meals. ergocalciferol 50,000 unit capsule (VITAMIN D2, DRISDOL) Take 1 capsule by mouth one time a week. 4 capsule 1 meclizine (ANTIVERT) 25 mg tab Take 25 mg by mouth once daily. albuterol HFA (PROAIR HFA) 90 mcg/actuation inhaler Inhale 1 Puff as instructed every 4 hours as needed for wheezing/shortness of breath. ferrous sulfate 325 mg (65 mg iron) tablet Take 325 mg by mouth daily with breakfast. omeprazole (PRILOSEC) 40 mg capsule Take 1 capsule by mouth once daily. (Patient not taking: Reported on 08/30/2024) 90 capsule 1 CPAP (Patient not taking: Reported on 04/19/2024) No current facility-administered medications for this visit. ACTIVE PROBLEM LIST Climacteric Hypertension Hyperlipidemia With Target Low Density Lipoprotein (Ldl) Cholesterol Less Than 100 Mg/Dl Arthritis of Right Knee Urinary Incontinence Lower Urinary Tract Symptoms (Luts) H/O Brain Aneurysm H/O Stroke (HCC) Asthma Peripheral Neuropathy Weiss (Dyspnea On Exertion) Chest Pain of Uncertain Etiology Stage 2 Chronic Kidney Disease Anemia Anxiety Morbidly Obese (Hcc) Ruth (Obstructive Sleep Apnea) S/P Total Knee Replacement Post-Traumatic Osteoarthritis of Right Shoulder Rotator Cuff Syndrome of Left Shoulder Atrial Fibrillation (Hcc) Obesity, Class III, BMI >= 40 S/P Total Knee Arthroplasty, Left PAST MEDICAL HISTORY Diagnosis Date Active asthma Anxiety Arthritis of knee, left 10/21/2012 Brain aneurysm Diabetes mellitus type 2, uncomplicated (HCC) Diabetes mellitus type 2, uncomplicated (HCC) 10/20/2018 Fibroids Hyperlipidemia LDL goal < 100 02/25/2013 Hypertension Morbidly obese ([facility]) 10/20/2018 RUTH (obstructive sleep apnea) 10/20/2018 Peripheral neuropathy 10/20/2018 Pulmonary embolism ([facility]) 12/13/2012 Right shoulder injury 10/21/2012 Stroke ([facility]) PAST SURGICAL HISTORY Procedure Laterality Date APPENDECTOMY ARTHRP KNE CONDYLEANDPLATU MEDIALANDLAT COMPARTMENTS Right 10/27/2018 Knee replacement, total BRAIN SURGERY HX 02/2013 brain aneurysm coiled CARDIAC CATH 2019 CHOLECYSTECTOMY Cholecystectomy SHOULDER SURGERY HX Right TOTAL KNEE REPLACEMENT Left 02/02/2024 VAGINAL HYSTERECTOMY UTERUS 250 GM/< Hysterectomy, vaginal, Fibroids Social History Tobacco Use Smoking status: Never Smokeless tobacco: Never Toba (more content not included)... Normal [facility] UA DIP, URINE (POC)on 2024 BILIRUBIN UA (POCT) Negative Negative [facility] CLARITY UA (POCT) Cloudy [facility] COLOR UA (POCT) Yellow [facility] GLUCOSE UA (POCT) Negative Negative mg/dL [facility] Hemoglobin Ql (U) Negative Negative [facility] Interpretation and review of laboratory results Abnormal [facility] KETONE UA (POCT) Trace Negative mg/dL [facility] LEUKOCYTES UA (POCT) Trace Abnormal Negative [facility] NITRITE UA (POCT) Negative Negative [facility] PH UA (POCT) 5.5 4.5 - 8.0 [facility] Protein Ql (U) 30 mg/dL Abnormal Negative [facility] SPECIFIC GRAVITY UA (POCT) 1.025 1.005 - 1.030 [facility] UROBILINOGEN UA (POCT) 0.2 Normal E.U./dL [facility] Location:[facility], [address] [place] [address], [place], [place], [address] [facility] POINT OF CARE [facility] 08-26-2024 CNPN Telephone (JOSIANENA) ----- SARAH LLAMASLOTTE ([id number]) 1955 F Date Time Provider Department 08/26/24 MAKAYLA BRADLEY During your visit today, we recorded the following information about you: Dionicio Agarwal 08/26/2024 9:05 AM Signed Called and left a message letting patient know we had to cancel their appointment for today (08/26/24) with as he is out sick. Patient can be rescheduled to next available. Sent adRise. Allergies As of Date: 08/26/2024 Noted Allergy Reaction CATS 02/20/2012 7 - Swelling LATEX 02/20/2012 2 - Rash LISINOPRIL 10/27/2018 7 - Swelling Comments: Tongue swells up Date Reviewed: 07/07/2024 Reviewed by: Solange Tejada MA - Fully Assessed Reason for Visit: Appointment Cancelled [1023] Prescriptions as of 08/26/2024 - ramelteon (ROZEREM) 8 mg tablet Take 1 tablet by mouth daily at bedtime. - amLODIPine (NORVASC) 10 mg tablet Take 1 tablet by mouth once daily. - gabapentin (NEURONTIN) 800 mg tablet Take 1 tablet by mouth three times a day for 180 days. - acetaminophen (TYLENOL) 500 mg tablet Take 2 tablets by mouth every 8 hours as needed for pain. - ascorbic acid, vitamin C, (VITAMIN C) 500 mg tablet Take 1 tablet by mouth two times a day with meals for 27 doses. - aspirin, enteric coated (ASPIRIN, ENTERIC COATED) 81 mg EC tablet Take 1 tablet by mouth two times a day for 28 days. - omeprazole (PRILOSEC) 40 mg capsule Take 1 capsule by mouth once daily. - carvedilol (COREG) 12.5 mg tablet 1 tablet two times a day with meals. - ergocalciferol 50,000 unit capsule (VITAMIN D2, DRISDOL) Take 1 capsule by mouth one time a week. - meclizine (ANTIVERT) 25 mg tab Take 25 mg by mouth once daily. - albuterol HFA (PROAIR HFA) 90 mcg/actuation inhaler Inhale 1 Puff as instructed every 4 hours as needed for wheezing/shortness of breath. - ferrous sulfate 325 mg (65 mg iron) tablet Take 325 mg by mouth daily with breakfast. - CPAP Problem List As Of Date 08/26/2024 Noted Resolved Climacteric [N95.1] 03/23/2012 Arthritis of knee, left [M17.12] 10/21/2012 10/20/2018 Right shoulder injury [S49.91XA] 10/21/2012 10/20/2018 Hypertension [I10] 10/21/2012 Type II or unspecified type diabetes mellitus w*10/21/2012 10/20/2018 H/O Pulmonary embolism (HCC) [I26.99] 12/13/2012 04/16/2023 Hyperlipidemia with target low density lipoprot*02/25/2013 Arthritis of right knee [M17.11] 05/21/2013 Rotator cuff disorder [M67.919] 05/21/2013 10/20/2018 Urinary incontinence [R32] 10/04/2015 Lower urinary tract symptoms (LUTS) [R39.9] 10/04/2015 H/O Brain Aneurysm [I67.1] 10/20/2018 H/O Stroke (HCC) [I63.9] 10/20/2018 Asthma [J45.909] 10/20/2018 Diabetes mellitus type 2, uncomplicated (HCC) [*10/20/2018 04/19/2024 Peripheral neuropathy [G62.9] 10/20/2018 WEISS (dyspnea on exertion) [R06.09] 10/20/2018 Chest pain of uncertain etiology [R07.9] 10/20/2018 Stage 2 chronic kidney disease [N18.2] 10/20/2018 Anemia [D64.9] 10/20/2018 Anxiety [F41.9] 10/20/2018 Morbidly obese (HCC) [E66.01] 10/20/2018 RUTH (obstructive sleep apnea) [G47.33] 10/20/2018 S/P total knee replacement [Z96.659] 10/27/2018 Post-traumatic osteoarthritis of right shoulder*08/02/2019 Rotator cuff syndrome of left shoulder [M75.102]11/02/2019 Atrial fibrillation ([facility]) [I48.91] 04/16/2023 Obesity, Class III, BMI >= 40 [E66.01] 02/02/2024 S/P total knee arthroplasty, left [Z96.652] 02/03/2024 Encounter Status:Closed by DIONICIO AGARWAL on 08/26/24 [facility] [place] CNOVon 07-07-2024 CN Office Visit (UCWSTR ) ----- CADEN LLAMAS ([id number]) 1955 F Date Time Provider Department 07/07/24 2:[address] [facility] During your visit today, we recorded the following information about you: Temperature Pulse Respiration Blood pressure 98.3 degrees 84/minute 16/minute 142/88 Weight 95.3 kg Catie Stevenson MD 07/07/2024 2:02 PM Signed Patient presents with: Sinus Problem: drainage, sore throat x 1 week HPI: Feeling sick for 7 days. Sinus pressure is worsening. Positive symptoms: Sore throat, Sinus pressure, Cough, nocturnal Wheezing, Nasal Congestion, Rhinorrhea, Negative symptoms: Shortness of breath, Fever, OTC: Mucinex MEDICATIONS: Current Outpatient Medications Medication Sig ramelteon (ROZEREM) 8 mg tablet Take 1 tablet by mouth daily at bedtime. amLODIPine (NORVASC) 10 mg tablet Take 1 tablet by mouth once daily. gabapentin (NEURONTIN) 800 mg tablet Take 1 tablet by mouth three times a day for 180 days. acetaminophen (TYLENOL) 500 mg tablet Take 2 tablets by mouth every 8 hours as needed for pain. ascorbic acid, vitamin C, (VITAMIN C) 500 mg tablet Take 1 tablet by mouth two times a day with meals for 27 doses. aspirin, enteric coated (ASPIRIN, ENTERIC COATED) 81 mg EC tablet Take 1 tablet by mouth two times a day for 28 days. omeprazole (PRILOSEC) 40 mg capsule Take 1 capsule by mouth once daily. carvedilol (COREG) 12.5 mg tablet 1 tablet two times a day with meals. (Patient taking differently: Take 12.5 mg by mouth two times a day with meals.) ergocalciferol 50,000 unit capsule (VITAMIN D2, DRISDOL) Take 1 capsule by mouth one time a week. meclizine (ANTIVERT) 25 mg tab Take 25 mg by mouth once daily. albuterol HFA (PROAIR HFA) 90 mcg/actuation inhaler Inhale 1 Puff as instructed every 4 hours as needed for wheezing/shortness of breath. ferrous sulfate 325 mg (65 mg iron) tablet Take 325 mg by mouth daily with breakfast. CPAP (Patient not taking: Reported on 04/19/2024) No current facility-administered medications for this visit. ALLERGIES: ALLERGIES Allergen Reactions Cats Swelling Latex Rash Lisinopril Swelling Tongue swells up VITALS: BP 142/88 Pulse 84 Temp 36.8 ?C (98.3 ?F) Resp 16 Wt 95.3 kg (210 lb 1.6 oz) SpO2 99% BMI 38.43 kg/m? PHYSICAL EXAM: GEN: mildly ill appearing HEENT: PERRL, EOMI, conjunctiva clear Ears: canals clear. TMs without erythema, bulge, or effusion Sinuses: pressure over sinuses Throat: moist mucous membranes, mild erythema, no exudate Neck: supple, no thyromegaly, no lymphadenopathy HEART: regular rate, regular rhythm, no murmurs LUNGS: clear to auscultation, no wheezes or crackles, no increased WOB ASSESSMENT/PLAN: 1. Acute non-recurrent sinusitis, unspecified location - ICD9: 461.9, ICD10: J01.90 (primary diagnosis) 2. Sore throat - ICD9: 462, ICD10: J02.9 - STREP A MOLECULAR (POC) - negative - suspect viral URI. Possible secondary bacterial sinusitis. - Discussed supportive care treatment with rest, cold medicine, and analgesia. - AMOXICILLIN 875 MG-POTASSIUM CLAVULANATE 125 MG TABLET Catie Stevenson MD Allergies As of Date: 07/07/2024 Noted Allergy Reaction CATS 02/20/2012 7 - Swelling LATEX 02/20/2012 2 - Rash LISINOPRIL 10/27/2018 7 - Swelling Comments: Tongue swells up Date Reviewed: 07/07/2024 Reviewed by: Solange Tejada MA - Fully Assessed Reason for Visit: Sinus Problem [99] Cmt: drainage, sore throat x 1 week Primary Visit Diagnosis:Acute non-recurrent sinusitis, unspecified location [J01.90] Other Visit Diagnosis:Sore throat [J02.9] Order(s):STREP A MOLECULAR (POC) [[id number]] Order #: [id number]. #:[id number] 03-LAB amoxicillin-clavulanate potassium (AUGMENTIN) 875-125 mg per tabletTake 1 tablet by mouth two times a day for 5 days.Disp: 10 tabletRfl: 0 Prescriptions as of 07/07/2024 - amoxicillin-clavulanate potassium (AUGMENTIN) 875-125 mg per tablet Take 1 tablet by mouth two times a day for 5 days. - ramelteon (ROZEREM) 8 mg tablet Take 1 tablet by mouth daily at bedtime. - amLODIPine (NORVASC) 10 mg tablet Take 1 tablet by mouth once daily. - gabapentin (NEURONTIN) 800 mg tablet Take 1 tablet by mouth three times a day for 180 days. - acetaminophen (TYLENOL) 500 mg tablet Take 2 tablets by mouth every 8 hours as needed for pain. - ascorbic acid, vitamin C, (VITAMIN C) 500 mg tablet Take 1 tablet by mouth two times a day with meals for 27 doses. - aspirin, enteric coated (ASPIRIN, ENTERIC COATED) 81 mg EC tablet Take 1 tablet by mouth two times a day for 28 days. - omeprazole (PRILOSEC) 40 mg capsule Take 1 capsule by mouth once daily. - carvedilol (COREG) 12.5 mg tablet 1 tablet two times a day with meals. - ergocalciferol 50,000 unit capsule (VITAMIN D2, DRISDOL) Take 1 capsule by mouth one time a week. - mecli (more content not included)... Normal [place] [facility] STREP A MOLECULAR (POC)on Procedural Control Valid [facility] Strep A (POCT) Negative Negative [facility] PT D/C Summary (1)on 024 PT D/C Summary (1) [facility] [address] [place] [address] / REHABILITATION SERVICES DISCHARGE SUMMARY MR#: [id number] Acct: [id number] Name: CADEN LLAMAS Rep #: [id number] : 1955 69 From: Nathan Daley PT, Cert. T, OCS Referring Dr.: Dr. Makayla Bradley MD Status: REG R Insurance: [employer] [facility] 05/13/18 Discharge Summary D/C summary: It has been my pleasure to treat CADEN LLAMAS referred by Dr. Makayla Bradley MD, with the diagnosis of S/P TOTAL KNEE ARTHROPLASTY ,LEFT for a total of 7 visit(s). Discharge Date: Please see the following information for a summary of their discharge status. Subjective Subjective: Doing good Pain Right Knee: Pain Intensity (Out of 10): 0 Overall Improvement % Improvement: 75 Objective Objective/Function: POSTURE:mild forward posture,trunk flexed hips/knees flexed GAIT: ambulates with cane 2 point gait NEURO: denies paresthesia/tingling , SKIN: incision well approximate MID PATELLA JOINT: 41.2 cm 6 SUPERIOR PATELLA : 55.2 cm AROM: 5-108degrees supine flexion MMT:( peak force) quads 14.1,hamstrings 16.1,hip flexion 22.7 Goals Goal 1:: Patient to be I with HEP for TKA Goal 2:: Patient to ambulate with least restrictive device with improve gait pattern Goal 3:: Patient to improve AROM 5-120 degrees supine flexion to improve gait. Goal 4:: Patient to improve peak force quads/hams by 10-15# function and gait Goal 5:: Patient to improve WOMAC score by 10-15 points to improve QOL and function. Goal 6:: Patient LFES score by 10 points to improve QOL and function Plan Plan: S/P TKA 02/01 D/C D/C Information d/c sentence: If there are questions or concerns regarding this patient's physical therapy, please feel free to call me at [phone]. Thank you for the referral of this patient. Sincerely, Nathan Daley, PT, Cert MDT, OCS Balance/Gait/Functional tests Balance/Special Test Scores Lower Extremity Functional Score: 13 Tug Test: >30sec.=impaired mobility WOMAC Total Score: 69 WOMAC Percentage: 28.1300 Improvement % Improvement: 75 06/16/24 1732 CC: MOISES ESTRADA; Dr. Makayla Bradley MD LUIS F Signed Normal [facility] 05-06-2024 [facility] Office Visit (ORMDNA ) ----- CADEN LLAMAS ([id number]) 1955 F Date Time Provider Department 05/06/24 1:45 PM MAKAYLA BRADLEY During your visit today, we recorded the following information about you: Makayla Bradley MD 06/03/2024 10:[address] BRADLEY- POST-OP KNEE ===== Post-Op F/U Office Visit ===== Caden Llamas presents today for a 3 months status post Left TKA. Post-operative recovery was uneventful. Patient's rating of condition: improving Comments: None Does the Pt. still experience pain? PAIN EVALUATION 05/06/2024 1352 Pain Level: 0 Pain Location: Knee-Left Functional difficulties: Stair climbing Physical Therapy: Yes Pain Medication: Vicodin for episodes of increase in pain but she finds the need for this is decreasing ambulating without assistance. Medications and Allergies reviewed and verified. ===== EXAM: ===== GEN: AANDO x3, NAD SKIN:Appropriate postop appearance Incision intact Incision well healed LeftKnee: ROM: Flexion/Extension:5 degrees to 110 degrees Pain with ROM:No Mal-alignment: No Effusion: None Tender to palpation of the medial joint line(s). 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 Plan: 1. Continue range of motion/strengthening exercises and weightbearing as tolerated 2. Final prescription for Vicodin given for episodes of increased pain 3. Continue total knee precautions 4. Follow-up for repeat clinical evaluation Makayla Bradley MD Electronic Signature Allergies As of Date: 05/06/2024 Noted Allergy Reaction CATS 02/20/2012 7 - Swelling LATEX 02/20/2012 2 - Rash LISINOPRIL 10/27/2018 7 - Swelling Comments: Tongue swells up Date Reviewed: 05/06/2024 Reviewed by: Elli Bland OCCA - Fully Assessed Reason for Visit: Follow Up [171] Knee Replacement [363] Primary Visit Diagnosis:Aftercare following left knee joint replacement surgery [Z47.1, Z96.652] Order(s):[] HYDROcodone-acetaminophen (NORCO) 5-325 mg per tabletTake 1 tablet by mouth every 8 hours as needed for pain for up to 7 days.Disp: 20 tabletRfl: 0 Prescriptions as of 06/03/2024 - ramelteon (ROZEREM) 8 mg tablet Take 1 tablet by mouth daily at bedtime. - methocarbamol (ROBAXIN) 500 mg tablet Take 1 tablet by mouth three times a day as needed (muscle spasms). - amLODIPine (NORVASC) 10 mg tablet Take 1 tablet by mouth once daily. - acetaminophen (TYLENOL) 500 mg tablet Take 2 tablets by mouth every 8 hours as needed for pain. - ascorbic acid, vitamin C, (VITAMIN C) 500 mg tablet Take 1 tablet by mouth two times a day with meals for 27 doses. - aspirin, enteric coated (ASPIRIN, ENTERIC COATED) 81 mg EC tablet Take 1 tablet by mouth two times a day for 28 days. - omeprazole (PRILOSEC) 40 mg capsule Take 1 capsule by mouth once daily. - gabapentin (NEURONTIN) 800 mg tablet Take 1 tablet by mouth three times a day for 180 days. - carvedilol (COREG) 12.5 mg tablet 1 tablet two times a day with meals. - ergocalciferol 50,000 unit capsule (VITAMIN D2, DRISDOL) Take 1 capsule by mouth one time a week. - meclizine (ANTIVERT) 25 mg tab Take 25 mg by mouth once daily. - albuterol HFA (PROAIR HFA) 90 mcg/actuation inhaler Inhale 1 Puff as instructed every 4 hours as needed for wheezing/shortness of breath. - ferrous sulfate 325 mg (65 mg iron) tablet Take 325 mg by mouth daily with breakfast. - CPAP Problem List As Of Date 05/06/2024 Noted Resolved Climacteric [N95.1] 03/23/2012 Arthritis of knee, left [M17.12] 10/21/2012 10/20/2018 Right shoulder injury [S49.91XA] 10/21/2012 10/20/2018 Hypertension [I10] 10/21/2012 Type II or unspecified type diabetes mellitus w*10/21/2012 10/20/2018 H/O Pulmonary embolism (HCC) [I26.99] 12/13/2012 04/16/2023 Hyperlipidemia with target low density lipoprot*02/25/2013 Arthritis of right knee [M17.11] 05/21/2013 Rotator cuff disorder [M67.919] 05/21/2013 10/20/2018 Urinary incontinence [R32] 10/04/2015 Lower urinary tract symptoms (LUTS) [R39.9] 10/04/2015 H/O Brain Aneurysm [I67.1] 10/20/2018 H/O Stroke (HCC) [I63.9] 10/20/2018 Asthma [J45.909] 10/20/2018 Diabetes mellitus type 2, uncomplicated (HCC) [*10/20/2018 04/19/2024 Peripheral neuropathy [G62.9] 10/20/2018 WEISS (dyspnea on exertion) [R06.09] 10/20/2018 Chest pain of uncertain etiology [R07.9] 10/20/2018 Stage 2 chronic kidney disease [N (more content not included)... Normal [facility] 04-21-2024 CNPN Telephone (AGINTMLW) ----- CADEN LLAMAS ([id number]) 1955 F Date Time Provider Department 04/21/24 MOISES MALCOLM NANNETTEAraceli During your visit today, we recorded the following information about you: Joanne Jaimes LPN 04/21/2024 10:00 AM Signed ----- Message from Moises Malcolm APRN.HUMAN MACHINE INTERFACE ENGINEER sent at 04/21/2024 6:50 AM EDT ----- Mammogram normal. Follow up routine yearly screening IMPRESSION IMPRESSION: There is no mammographic evidence of malignancy in either breast. Allergies As of Date: 04/21/2024 Noted Allergy Reaction CATS 02/20/2012 7 - Swelling LATEX 02/20/2012 2 - Rash LISINOPRIL 10/27/2018 7 - Swelling Comments: Tongue swells up Date Reviewed: 04/19/2024 Reviewed by: Joanne Jaimes LPN - Fully Assessed Reason for Visit: Results [95] Prescriptions as of 04/21/2024 - ramelteon (ROZEREM) 8 mg tablet Take 1 tablet by mouth daily at bedtime. - methocarbamol (ROBAXIN) 500 mg tablet Take 1 tablet by mouth three times a day as needed (muscle spasms). - amLODIPine (NORVASC) 10 mg tablet Take 1 tablet by mouth once daily. - acetaminophen (TYLENOL) 500 mg tablet Take 2 tablets by mouth every 8 hours as needed for pain. - ascorbic acid, vitamin C, (VITAMIN C) 500 mg tablet Take 1 tablet by mouth two times a day with meals for 27 doses. - aspirin, enteric coated (ASPIRIN, ENTERIC COATED) 81 mg EC tablet Take 1 tablet by mouth two times a day for 28 days. - omeprazole (PRILOSEC) 40 mg capsule Take 1 capsule by mouth once daily. - gabapentin (NEURONTIN) 800 mg tablet Take 1 tablet by mouth three times a day for 180 days. - carvedilol (COREG) 12.5 mg tablet 1 tablet two times a day with meals. - ergocalciferol 50,000 unit capsule (VITAMIN D2, DRISDOL) Take 1 capsule by mouth one time a week. - meclizine (ANTIVERT) 25 mg tab Take 25 mg by mouth once daily. - albuterol HFA (PROAIR HFA) 90 mcg/actuation inhaler Inhale 1 Puff as instructed every 4 hours as needed for wheezing/shortness of breath. - ferrous sulfate 325 mg (65 mg iron) tablet Take 325 mg by mouth daily with breakfast. - CPAP Problem List As Of Date 04/21/2024 Noted Resolved Climacteric [N95.1] 03/23/2012 Arthritis of knee, left [M17.12] 10/21/2012 10/20/2018 Right shoulder injury [S49.91XA] 10/21/2012 10/20/2018 Hypertension [I10] 10/21/2012 Type II or unspecified type diabetes mellitus w*10/21/2012 10/20/2018 H/O Pulmonary embolism (HCC) [I26.99] 12/13/2012 04/16/2023 Hyperlipidemia with target low density lipoprot*02/25/2013 Arthritis of right knee [M17.11] 05/21/2013 Rotator cuff disorder [M67.919] 05/21/2013 10/20/2018 Urinary incontinence [R32] 10/04/2015 Lower urinary tract symptoms (LUTS) [R39.9] 10/04/2015 H/O Brain Aneurysm [I67.1] 10/20/2018 H/O Stroke (HCC) [I63.9] 10/20/2018 Asthma [J45.909] 10/20/2018 Diabetes mellitus type 2, uncomplicated (HCC) [*10/20/2018 04/19/2024 Peripheral neuropathy [G62.9] 10/20/2018 WEISS (dyspnea on exertion) [R06.09] 10/20/2018 Chest pain of uncertain etiology [R07.9] 10/20/2018 Stage 2 chronic kidney disease [N18.2] 10/20/2018 Anemia [D64.9] 10/20/2018 Anxiety [F41.9] 10/20/2018 Morbidly obese (HCC) [E66.01] 10/20/2018 RUTH (obstructive sleep apnea) [G47.33] 10/20/2018 S/P total knee replacement [Z96.659] 10/27/2018 Post-traumatic osteoarthritis of right shoulder*08/02/2019 Rotator cuff syndrome of left shoulder [M75.102]11/02/2019 Atrial fibrillation (HCC) [I48.91] 04/16/2023 Obesity, Class III, BMI >= 40 [E66.01] 02/02/2024 S/P total knee arthroplasty, left [Z96.652] 02/03/2024 Encounter Status:Closed by JOANNE JAIMES on 04/21/24 [facility] 04-19-2024 THONY Office Visit (AGINTM LW) ----- CADEN [id number]) 1955 F Date Time Provider Department 04/19/24 2:20 PM MOISES MALCOLM AGINTMLW During your visit today, we recorded the following information about you: Pulse Respiration Blood pressure Weight 92/minute 16/minute 126/76 92.1 kg Height 1.575 m Moises Malcolm APRN.CNP 04/21/2024 7:04 AM Signed This note was created using [employer] Variety[employer]. Subjective Caden Llamas is a 69 year old female here today for acute visit for insomnia. PMH DM, HTN, HLD, asthma, RUTH, CKD. She reports she has hard time falling asleep and staying asleep. States she goes to go bed at 9pm and states she wont fall asleep till 3 and is up at 630 am. States she will watch TV or listen to restorationism music. She denies any caffeine use. She has tried otc- melatonin 2 tabs at bedtime. Reports it worked the first night but after that it did not work. She has tried sleep eez cough medicine, sleepy time tea, benadryl. She was on trazodone 50 mg this did not work so she up it to 2 tabs and states that did not work. She had left TKR. 02/02/24. She is still in therapy. She will go back to work at the end of the month. 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 ALLERGIES Allergen Reactions Cats Swelling Latex Rash Lisinopril Swelling Tongue swells up Current Outpatient Medications Medication Sig Dispense Refill methocarbamol (ROBAXIN) 500 mg tablet Take 1 tablet by mouth three times a day as needed (muscle spasms). 15 tablet 0 amLODIPine (NORVASC) 10 mg tablet Take 1 tablet by mouth once daily. 90 tablet 1 acetaminophen (TYLENOL) 500 mg tablet Take 2 tablets by mouth every 8 hours as needed for pain. 90 tablet 0 ascorbic acid, vitamin C, (VITAMIN C) 500 mg tablet Take 1 tablet by mouth two times a day with meals for 27 doses. 27 tablet 0 aspirin, enteric coated (ASPIRIN, ENTERIC COATED) 81 mg EC tablet Take 1 tablet by mouth two times a day for 28 days. 56 tablet 0 omeprazole (PRILOSEC) 40 mg capsule Take 1 capsule by mouth once daily. 90 capsule 1 gabapentin (NEURONTIN) 800 mg tablet Take 1 tablet by mouth three times a day for 180 days. 270 tablet 1 carvedilol (COREG) 12.5 mg tablet 1 tablet two times a day with meals. (Patient taking differently: Take 1 tablet by mouth two times a day with meals.) traZODone (DESYREL) 50 mg tablet Take 1 tablet by mouth daily at bedtime. 30 tablet 11 ergocalciferol 50,000 unit capsule (VITAMIN D2, DRISDOL) Take 1 capsule by mouth one time a week. 4 capsule 1 meclizine (ANTIVERT) 25 mg tab Take 25 mg by mouth once daily. albuterol HFA (PROAIR HFA) 90 mcg/actuation inhaler Inhale 1 Puff as instructed every 4 hours as needed for wheezing/shortness of breath. ferrous sulfate 325 mg (65 mg iron) tablet Take 325 mg by mouth daily with breakfast. CPAP No current facility-administered medications for this visit. ACTIVE PROBLEM LIST Climacteric Hypertension Hyperlipidemia With Target Low Density Lipoprotein (Ldl) Cholesterol Less Than 100 Mg/Dl Arthritis of Right Knee Urinary Incontinence Lower Urinary Tract Symptoms (Luts) H/O Brain Aneurysm H/O Stroke (HCC) Asthma Diabetes Mellitus Type 2, Uncomplicated (Hcc) Peripheral Neuropathy Weiss (Dyspnea On Exertion) Chest Pain of Uncertain Etiology Stage 2 Chronic Kidney Disease Anemia Anxiety Morbidly Obese (Hcc) Ruth (Obstructive Sleep Apnea) S/P Total Knee Replacement Post-Traumatic Osteoarthritis of Right Shoulder Rotator Cuff Syndrome of Left Shoulder Atrial Fibrillation (Hcc) Obesity, Class III, BMI >= 40 S/P Total Knee Arthroplasty, Left PAST MEDICAL HISTORY Diagnosis Date Active asthma Anxiety Arthritis of knee, left 10/21/2012 Brain aneurysm Diabetes mellitus type 2, uncomplicated (HCC) Fibroids Hyperlipidemia LDL goal < 100 02/25/2013 Hypertension Morbidly obese (HCC) 10/20/2018 RUTH (obstructive sleep apnea) 10/20/2018 Peripheral neuropathy 10/20/2018 Pulmonary embolism (HCC) 12/13/2012 Right shoulder injury 10/21/2012 Stroke (HCC) PAST SURGICAL HISTORY Procedure Laterality Date APPENDECTOMY ARTHRP KNE CONDYLEANDPLATU MEDIALANDLAT COMPARTMENTS Right 10/27/2018 Knee replacement, total BRAIN SURGERY HX 02/2013 brain aneurysm coiled CARDIAC CATH 2019 CHOLECYSTECTOMY Cholecystectomy SHOULDER SURGERY HX Right TOTAL KNEE REPLACEMENT Left 02/02/2024 VAGINAL HYSTERECTOMY UTERUS 250 GM/< Hysterectomy, vaginal, Fibroids Social History Tobacco Use Smoking status: Never Smokeless tobacco: Never Tobacco comments: Smoked as a teenager Vaping Use Vaping status: Never Used Substance Use Topics Alcohol use: No Drug use: No Family History Problem Relation Age of Onset Cancer Mother Liver Diabetes Mother Hypertension Mother Lipids Mother Heart Father [place] Psychiatry Sister Hypertensio (more content not included)... Normal [facility] SCREENINGon 04-18-2024 [facility] SCREENING * * *Final Report* * * DATE OF EXAM: Apr 18 2024 8:41AM [id number] - [facility] SCREENING / PROCEDURE REASON: Encounter for screening mammogram for malignant neoplasm of breast * * * * Physician Interpretation * * * * RESULT: [place] [address] HISTORY: Patient is 69 years old and is seen for screening and focal pain in the right breast. The patient has no personal history of cancer. COMPARISON STUDIES: Comparison is made to exams dating back to: 2019. MAMMOGRAM TECHNIQUE: The study was acquired using full field digital technology and interpreted from soft copy. Digital Breast Tomosynthesis (DBT) images were obtained and used to assist in the interpretation of this examination. Computer-aided detection was utilized by the radiologist in the interpretation of this examination. MAMMOGRAM FINDINGS: The breasts are almost entirely fatty. No suspicious masses, calcifications or other abnormalities are seen in either breast. IMPRESSION: There is no mammographic evidence of malignancy in either breast. Routine follow-up mammogram in 1 year is recommended. BI-RADS Category 1: Negative RISK: Based on the Tyrer-Cuzick (TC) risk assessment model, this patient has a 1.9% lifetime risk of developing breast cancer, meaning they are at average risk for developing breast cancer. However, this is only an estimate based on available history provided on the patient's questionnaire. We encourage all patients talk with their providers about these results, further recommendations for managing breast health, and appropriate supplemental screening options if the patient has dense breast tissue. Interpreting Radiologist: Esther Rothman M.D. Electronically signed on: 04/20/2024 Head Girls Golf Coach: JORDAN Transcribe Date/Time: Apr 18 2024 8:24A Dictated by: ESTHER ROTHMAN MD This examination was interpreted and the report reviewed and electronically signed by: ESTHER ROTHMAN MD on Apr 20 2024 11:50PM EST [id number] Normal [facility] Inital Evaluation (1) - PTon 03-29-2024 Inital Evaluation (1) - PT [facility] Physical Therapy [facility] [address] [place] [address] / REHABILITATION SERVICES INITIAL EVALUATION MR#: [id number] Acct: [id number] Name: CADEN LLAMAS Rep #: [id number] : 1955 69 From: Nathan Daley PT, Cert. T, OCS Referring Dr.: Dr. Makayla Bradley MD Status: REG [facility] Insurance: [employer] [facility] 05/13/18 Patient's Visit Information Visit Information Visit Information: CADEN LLAMAS is a 69 year old F referred to Physical Therapy by Dr. Makayla Bradley MD with a diagnosis of S/P TOTAL KNEE ARTHROPLASTY ,LEFT. Date of Evaluation: 03/29/24 Physical Therapist: Nathan Daley PT, Cert T, OCS Visit Plan Frequency: 2x /Week Duration: 8 WEEKS Plan: S/P TKA 02/01 PT INTERVENTIONS PROM/STRETCHING KNEE ,QUADS/HAMS/HIP STRENGTHENING ,GAIT/BALANCE TRAINING AND FUNCTIONAL STRENGTHENING Subjective Subjective: This 69 y/o female presents to physical therapy with s/p left total arthroplasty on February 01 at [facility] by Dr Bradley . Patient d/c to home next day. Patient had [facility] PT 1 week later 4 weeks [facility] PT. Patient seen last and return Apr 25. Patient d/c to W. Medication oxycodone. Patient has been ice at home. Patient 2 story home with 3 steps no rail. Patient has 5 steps 2nd floor tub/shower. Patient is bathing/ dressing. Patient has been eating out. Patient has some paresthesia in knee. Patient sleeping good. Patient continues with pain and takes medication. Patient has not return to work . Patient condition affects QOL and function. Patient barriers strength/balance. 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 Right Knee: Pain Intensity (Out of 10): 5 Pain Intensity Range: 10 Objective Objective: POSTURE:mild forward posture,trunk flexed hips/knees flexed GAIT: ambulates with forward posture slow farheen decrease stance time LLE with decrease swing phase and knee flexed NEURO: denies paresthesia/tingling , SKIN: incision well approximate MID PATELLA JOINT: 43.2 cm 6 SUPERIOR PATELLA : 57.6 cm AROM: 20-105 degrees supine flexion MMT:( peak force) quads 9.8,hamstrings 10.1,hip flexion 13.2 BALANCE: fair+ STAIRS: one step at time with rail Balance/Special Test Scores Lower Extremity Functional Score: 13 WOMAC Total Score: 69 WOMAC Percentatge: 28.1300 Goals Goal 1:: Patient to be I with HEP for TKA Goal Time Frame: 6-8 Weeks Goal 2:: Patient to ambulate with least restrictive device with improve gait pattern Goal Time Frame: 6-8 Weeks Goal 3:: Patient to improve AROM 5-120 degrees supine flexion to improve gait. Goal Time Frame: 6-8 Weeks Goal 4:: Patient to improve peak force quads/hams by 10-15# function and gait Goal Time Frame: 6-8 Weeks Goal 5:: Patient to improve WOMAC score by 10-15 points to improve QOL and function. Goal Time Frame: 6-8 Weeks Goal 6:: Patient LFES score by 10 points to improve QOL and function Goal Time Frame: 6-8 Weeks Rehabilitation Potential Physical Therapy Diagnosis: This patient s/p TKA 02/01 with decrease ROM ,pain ,weakness impairs gait ,balance and stairs thus benefit from skilled PT Rehabilitation Potential: Good Anticipated Interventions Patient/Client Instruction: Educate patient on: Condition and Plan of Care For the Purpose of:: To decrease pain, To increase ROM, To improve nutrient delivery to tissue, To increase oxygenation perfusion, To improve muscle performance and motor function, To increase tolerance to activity/condition/positi on, To improve ability of physical actions for home/community/work/leisu re, To improve health of tissue, To decrease soft tissue restriction, To increase flexibility/ROM, To improve endurance, To improve balance, To reduce risk of recurrence and To improve tolerance to ADL's Therapeutic Exercise to Include: Strength training, Endurance training, Balance training, Flexibilty training, Gait and locomotor training, Passive ROM and Active ROM For the Purpose of:: To decrease pain, To improve muscle performance and motor function, To improve ability to perform ADL's, To increase tolerance to activity/condition/positi on, To improve ability of physical actions for home/community/work/leisu re, To improve gait and locomotor functions, To improve health of tissue, To decrease soft tissue restriction, To increase flexibility/ROM, To improve endurance, To improve balance and To reduce risk of recurrence Text: Thank you for the opportunity to evaluate your patient. For Medicare and Medicare HMO plans, please review the plan of care and approve it. It will need to be FAXED BACK to us at [phone] for Medicare purposes. For Medicare only, by signing this I certify the plan of care. Please let me know if there are questions or concerns regarding this plan of care. Ph (more content not included)... Normal [facility] 03-18-2024 [facility] Office Visit (ORMDNA ) ----- CADEN LLAMAS ([id number]) 1955 F Date Time Provider Department 03/18/24 2:45 PM MAKAYLA BRADLEY During your visit today, we recorded the following information about you: Makayla Bradley MD 04/15/2024 11:[address] BRADLEY- POST-OP KNEE ===== Post-Op F/U Office Visit ===== Caden Llamas presents today for a 6 weeks status post Left TKA. Post-operative recovery was uneventful. Patient's rating of condition: improving Comments: None Does the Pt. still experience pain? PAIN EVALUATION 03/18/2024 1444 Pain Level: 4 Pain Location: Knee-Left Description: Sore;Aching Duration Amount of Time: -- ongoing Frequency: Intermittent Intervention/Comfort measure: Medication;Cold Functional difficulties: Stair climbing Physical Therapy: Completed Home PT Pain Medication: Yes Ambulating without assistance. Medications and Allergies reviewed and verified. ===== EXAM: ===== GEN: AANDO x3, NAD SKIN:Appropriate postop appearance Incision intact Incision well healed LeftKnee: ROM: Flexion/Extension:10 degrees to 100 degrees Pain with ROM:No Mal-alignment: No Effusion: None Tender to palpation of the medial and patellofemoral joint line(s). 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 Plan: 1 refer to physical therapy for continued range of motion and strengthening exercises with emphasis on flexion and extension 2. Continue total knee precautions 3. Follow-up for repeat clinical evaluation Makayla Bradley MD Electronic Signature Allergies As of Date: 03/18/2024 Noted Allergy Reaction CATS 02/20/2012 7 - Swelling LATEX 02/20/2012 2 - Rash LISINOPRIL 10/27/2018 7 - Swelling Comments: Tongue swells up Date Reviewed: 03/18/2024 Reviewed by: Elli Bland OCCA - Fully Assessed Reason for Visit: Post Op [174] Knee Replacement [363] Primary Visit Diagnosis:S/P total knee arthroplasty, left [Z96.652] Other Visit Diagnosis:Aftercare following left knee joint replacement surgery [Z47.1, Z96.652] Order(s):CONSULT TO PHYSICAL THERAPY [9005] Order #: [id number]: 1 FUTURE Prescriptions as of 04/15/2024 - oxyCODONE IR (ROXICODONE) 5 mg immediate release tablet Take 1 tablet by mouth every 8 hours as needed for pain for up to 7 days. for pain. - methocarbamol (ROBAXIN) 500 mg tablet Take 1 tablet by mouth three times a day as needed (muscle spasms). - amLODIPine (NORVASC) 10 mg tablet Take 1 tablet by mouth once daily. - acetaminophen (TYLENOL) 500 mg tablet Take 2 tablets by mouth every 8 hours as needed for pain. - ascorbic acid, vitamin C, (VITAMIN C) 500 mg tablet Take 1 tablet by mouth two times a day with meals for 27 doses. - aspirin, enteric coated (ASPIRIN, ENTERIC COATED) 81 mg EC tablet Take 1 tablet by mouth two times a day for 28 days. - omeprazole (PRILOSEC) 40 mg capsule Take 1 capsule by mouth once daily. - gabapentin (NEURONTIN) 800 mg tablet Take 1 tablet by mouth three times a day for 180 days. - carvedilol (COREG) 12.5 mg tablet 1 tablet two times a day with meals. - traZODone (DESYREL) 50 mg tablet Take 1 tablet by mouth daily at bedtime. - ergocalciferol 50,000 unit capsule (VITAMIN D2, DRISDOL) Take 1 capsule by mouth one time a week. - meclizine (ANTIVERT) 25 mg tab Take 25 mg by mouth once daily. - albuterol HFA (PROAIR HFA) 90 mcg/actuation inhaler Inhale 1 Puff as instructed every 4 hours as needed for wheezing/shortness of breath. - ferrous sulfate 325 mg (65 mg iron) tablet Take 325 mg by mouth daily with breakfast. - CPAP Problem List As Of Date 03/18/2024 Noted Resolved Climacteric [N95.1] 03/23/2012 Arthritis of knee, left [M17.12] 10/21/2012 10/20/2018 Right shoulder injury [S49.91XA] 10/21/2012 10/20/2018 Hypertension [I10] 10/21/2012 Type II or unspecified type diabetes mellitus w*10/21/2012 10/20/2018 H/O Pulmonary embolism (HCC) [I26.99] 12/13/2012 04/16/2023 Hyperlipidemia with target low density lipoprot*02/25/2013 Arthritis of right knee [M17.11] 05/21/2013 Rotator cuff disorder [M67.919] 05/21/2013 10/20/2018 Urinary incontinence [R32] 10/04/2015 Lower urinary tract symptoms (LUTS) [R39.9] 10/04/2015 H/O Brain Aneurysm [I67.1] 10/20/2018 H/O Stroke (HCC) [I63.9] 10/20/2018 Asthma [J45.909] 10/20/2018 Diabetes mellitus type 2, uncomplicated (HCC) [*10/20/2018 Peripheral ne (more content not included)... Normal [facility] 12 Lead EKGon 03-13-2024 12 Lead EKG [facility] Cardiovascular Services [address] [place] [address] 12 Lead EKG 03/13/24 1054 MR#: [id number] Acct: [id number] Name: CADEN LLAMAS Rep #: [id number] : 1955 69 From: Alfonzo Broderick MD Attending Dr: Status: DEP ER Ordering Dr: Jaron Worrell DO Date: 03/13/24 Location: ED Sex: F AA Admitted: Test Reason : CP Blood Pressure : / mmHG Vent. Rate : 054 BPM Atrial Rate : 054 BPM P-R Int : 186 ms QRS Dur : 086 ms QT Int : 544 ms P-R-T Axes : 021 -16 -02 degrees QTc Int : 515 ms Sinus bradycardia Prolonged QT Abnormal ECG Confirmed by ALFONZO BRODERICK MD ([id number]), restaurant expeditor URIAH ROE ([id number]) on 03/15/2024 8:02:17 AM Referred By: DESTINEE/JUNI Confirmed By:ALFONZO BRODERICK MD 03/15/24 0802 Date Alfonzo Broderick MD CC: MOISES ESTRADA; Dr. Jaron Worrell DO Signed Normal [facility] Basic Metabolic Profile (BMP )on 03-13-2024 BUN/CRE 10.3 RATIO Normal 10-20 [facility] Comment on above: Order Comment: 1 Y Performed By: #### L 500.2500, L100.0100, L501.5425 #### [facility] Laboratory [address] [place], [address] CA,Total 8.8 mg/dL Normal 8.5-10.1 [facility] Comment on above: Order Comment: 1 Y Performed By: #### L 500.2500, L100.0100, L501.5425 #### [facility] Laboratory [address] [place], [address] Chloride [Moles/Vol] 107 mmol/L Normal 98-107 [facility] Comment on above: Order Comment: 1 Y Performed By: #### L 500.2500, L100.0100, L501.5425 #### [facility] Laboratory [address] [place], [address] CO2 [Moles/Vol] 25.0 mmol/L Normal 21.0-32.0 [facility] Comment on above: Order Comment: 1 Y Performed By: #### L 500.2500, L100.0100, L501.5425 #### [facility] Laboratory [address] [place], [address] Creatinine [Mass/Vol] 1.36 mg/dL High 0.55-1.02 [facility] Comment on above: Order Comment: 1 Y Result Comment: The validity of the calculated GFR GFRAA in patients over 70 years has not been determined. Clinical correlation is essential. Performed By: #### L 500.2500, L100.0100, L501.5425 #### [facility] Laboratory [address] [place], [address] ECRCL 37.34 ml/min Normal [facility] Comment on above: Order Comment: 1 Y Performed By: #### L 500.2500, L100.0100, L501.5425 #### [facility] Laboratory [address] [place], [address] EST GFR - AA 49 mL/min Low >60 [facility] Comment on above: Order Comment: 1 Y Result Comment: Afri can Danish GFR Calc Performed By: #### L 500.2500, L100.0100, L501.5425 #### [facility] Laboratory [address] [place], [address] GAP 6 Normal 5-15 [facility] Comment on above: Order Comment: 1 Y Performed By: #### L 500.2500, L100.0100, L501.5425 #### [facility] Laboratory [address] [place], [address] GFR/1.73 sq M.predicted among non-blacks MDRD (S/P/Bld) [Vol rate/Area] 41 mL/min/{1.73_m2} Low >60 [facility] Comment on above: Order Comment: 1 Y Result Comment: Non- GFR Calc Performed By: #### L 500.2500, L100.0100, L501.5425 #### [facility] Laboratory [address] [place], [address] Glucose [Mass/Vol] 120 mg/dL High 74-106 [facility] Comment on above: Order Comment: 1 Y Result Comment: Fast ing Glucose result from 100 to 125 mg/dL suggests IMPAIRED HOMEOSTASIS per A.D.A. criteria. Performed By: #### L 500.2500, L100.0100, L501.5425 #### [facility] Laboratory [address] [place], [address] Potassium [Moles/Vol] 4.2 mmol/L Normal 3.5-5.1 [facility] Comment on above: Order Comment: 1 Y Performed By: #### L 500.2500, L100.0100, L501.5425 #### [facility] Laboratory [address] [place], [address] Sodium [Moles/Vol] 138 mmol/L Normal 136-145 [facility] Comment on above: Order Comment: 1 Y Performed By: #### L 500.2500, L100.0100, L501.5425 #### [facility] Laboratory [address] [place], [address] Urea nitrogen [Mass/Vol] 14 mg/dL Normal 7-18 [facility] Comment on above: Order Comment: 1 Y Performed By: #### L 500.2500, L100.0100, L501.5425 #### [facility] Laboratory [address] [place], [address] CBC W/Diff, Automatedon 09-0 1-2024 Absolute Lymph 1.94 X10 3/uL Normal 0.83-4.51 [facility] Comment on above: Performed By: #### L 500.2500, L100.0100, L501.5425 #### [facility] Laboratory [address] [place], [address] Absolute Neut 1.8 X10 3/uL Low 2.0-7.7 [facility] Comment on above: Performed By: #### L 500.2500, L100.0100, L501.5425 #### [facility] Laboratory [address] [place], [address] Basophils/100 WBC (Bld) 0.5 % Normal 0-1 [facility] Comment on above: Performed By: #### L 500.2500, L100.0100, L501.5425 #### [facility] Laboratory [address] [place], [address] Eosinophils/100 WBC (Bld) 2.0 % Normal 0-5 [facility] Comment on above: Performed By: #### L 500.2500, L100.0100, L501.5425 #### [facility] Laboratory [address] [place], [address] Erythrocyte distribution width (RBC) [Ratio] 15.5 % High 11.6-14.6 [facility] Comment on above: Performed By: #### L 500.2500, L100.0100, L501.5425 #### [facility] Laboratory [address] [place], [address] Hematocrit (Bld) [Volume fraction] 30.2 % Low 37-47 [facility] Comment on above: Performed By: #### L 500.2500, L100.0100, L501.5425 #### [facility] Laboratory [address] [place], [address] Hemoglobin (Bld) [Mass/Vol] 9.4 g/dL Low 12.0-15.0 [facility] Comment on above: Performed By: #### L 500.2500, L100.0100, L501.5425 #### [facility] Laboratory [address] [place], [address] IG% 0.200 Normal 0.0-0.9 [facility] Comment on above: Result Comment: IG% - Immature Granulocytes (promyelocytes, myelocytes and metamyelocytes) > 1% indicates that a LEFT SHIFT is Present. Performed By: #### L 500.2500, L100.0100, L501.5425 #### [facility] Laboratory [address] [place], [address] Lymphocytes/100 WBC (Bld) 44.1 % High 19-41 [facility] Comment on above: Performed By: #### L 500.2500, L100.0100, L501.5425 #### [facility] Laboratory [address] [place], [address] MCH (RBC) [Entitic mass] 26.1 pg Low 27.0-32.0 [facility] Comment on above: Performed By: #### L 500.2500, L100.0100, L501.5425 #### [facility] Laboratory [address] [place], [address] MCHC (RBC) [Mass/Vol] 31.1 g/dL Low 32-36 [facility] Comment on above: Performed By: #### L 500.2500, L100.0100, L501.5425 #### [facility] Laboratory [address] [place], [address] MCV (RBC) [Entitic vol] 83.9 fL Normal 81-99 [facility] Comment on above: Performed By: #### L 500.2500, L100.0100, L501.5425 #### [facility] Laboratory [address] [place], [address] Monocytes/100 WBC (Bld) 12.3 % High 0-10 [facility] Comment on above: Performed By: #### L 500.2500, L100.0100, L501.5425 #### [facility] Laboratory [address] [place], [address] Neutrophils/100 WBC (Bld) 40.9 % Low 47-70 [facility] Comment on above: Performed By: #### L 500.2500, L100.0100, L501.5425 #### [facility] Laboratory [address] [place], [address] Nucleated RBC (Bld) [#/Vol] 0 10*3/uL Normal 0-5 [facility] Comment on above: Performed By: #### L 500.2500, L100.0100, L501.5425 #### [facility] Laboratory [address] [place], [address] Platelet mean volume (Bld) [Entitic vol] 10.0 fL Normal 6.2-12.0 [facility] Comment on above: Performed By: #### L 500.2500, L100.0100, L501.5425 #### [facility] Laboratory [address] [place], [address] Platelets (Bld) [#/Vol] 309 10*3/uL Normal 150-450 [facility] Comment on above: Performed By: #### L 500.2500, L100.0100, L501.5425 #### [facility] Laboratory [address] [place], [address] RBC (Bld) [#/Vol] 3.60 10*6/uL Low 4.2-5.4 [facility] Comment on above: Performed By: #### L 500.2500, L100.0100, L501.5425 #### [facility] Laboratory [address] [place], [address] RDW SD 47.3 fl High 35.1-43.9 [facility] Comment on above: Performed By: #### L 500.2500, L100.0100, L501.5425 #### [facility] Laboratory [address] [place], [address] WBC (Bld) [#/Vol] 4.4 10*3/uL Normal 4.4-11.0 [facility] Comment on above: Performed By: #### L 500.2500, L100.0100, L501.5425 #### [facility] Laboratory [address] [place], [address] CTA Chest W/WO Contraston CTA Chest W/WO Contrast [facility] Imaging Services [address] [place] [address] CTA Chest W/WO Contrast MR#: [id number] Acct: [id number] Name: CADEN LLAMAS Rep #: [id number] : 1955 F 69 From: Christian Abreu PCP: MOISES ESTRADA Status: REG ER Study: CTA Chest W/WO Contrast Date of Exam: 03/13/24 Exam# [id number] Ordering Dr: Jaron Worrell DO [id number] STUDY: CTA CHEST REASON FOR EXAM: Female, 69 years old. Elevated D-dimer RADIATION DOSAGE (If Supplied By Facility): CTDIvol = ( 12.64 ) mGy, DLP = ( 545.03 ) mGycm TECHNIQUE: The examination was performed with the intravenous administration of IV 100mL Isovue-370. Post-processing of the angiographic images was performed, with multiplanar reformation and 3D reconstruction. The protocol utilizes one or more of the following dose reduction techniques: automated exposure control, adjustment of mA and/or kV according to patient size,and/or use of iterative reconstruction technique. COMPARISON: Prior study dated: 08/16/2022 FINDINGS: Normal enhancement of the main pulmonary artery and right and left pulmonary arteries. Normal enhancement of the bilateral peripheral pulmonary arteries. There is no demonstrated pulmonary embolism. There is mild atherosclerotic tortuosity of the aortic arch and descending thoracic aorta. There is no demonstrated aortic dissection. Normal heart and pericardium. No evidence of coronary calcifications. Normal mediastinum. Normal hilar regions. Normal visualized trachea and bronchi. Mild atelectatic changes in the lower lungs. No focal consolidation is seen. No evidence of pneumothorax. There are no pleural effusions. Normal chest wall structures. No demonstrated acute osseous changes. The visualized portions of the upper abdomen demonstrate no acute process. Status post cholecystectomy. CT/CTA Chest W/WO Contrast IMPRESSION: 1. No evidence of pulmonary embolism or aortic dissection. 2. No acute pulmonary infiltrate or pleural effusions. Electronically Signed: Christian Felipe MD at 15:07 EDT , CC: MOISES ESTRADA; Dr. Jaron Worrell DO Head Girls Golf Coach: Signed Normal [facility] Chest 1 View (Portable)on Chest 1 View (Portable) [facility] Imaging Services [address], [place] [address] Chest 1 View (Portable) MR#: [id number] Acct: [id number] Name: CADEN LLAMAS Rep #: [id number] : 1955 F 69 From: Christian Abreu PCP: Care Physician,No Primary Status: PRE ER Study: Chest 1 View (Portable) Date of Exam: 03/13/24 Exam# [id number] Ordering Dr: Thad,Cy P. [id number] INDICATION: CHEST PAIN EXAMINATION/TECHNIQUE: X-RAY - XR Chest 1 View COMPARISON: Prior study dated: 03/30/2023 FINDINGS: LINES/DEVICES: None. LUNGS: No consolidation, edema or effusion. No pneumothorax. MEDIASTINUM AND CARDIOVASCULAR STRUCTURES: Cardiac silhouette not enlarged. Central airways and mediastinal contour are unremarkable. BONES AND SOFT TISSUES: Partially visualized right shoulder intramedullary inessa is seen. Degenerative changes of the right shoulder. RAD/Chest 1 View (Portable) IMPRESSION: No radiographic evidence of acute cardiopulmonary disease. 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 CALLED TO NIMISHA GRAHAM (ER) 03/13/24 1324 Jose Staton. RESULTS READ BACK BY SAME. Performed By: #### L 300.8000 #### [facility] Laboratory [address] [place], [address] Emergency Department Summary on 03-13-2024 Emergency Department Summary [facility] Medical Records Department [address] [facility] [place] [address] Emergency Department Summary 03/13/24 MR#: [id number] Acct: [id number] Name: CADEN LLAMAS Rep #: [id number] : 1955 69 From: Jaron Worrell DO PCP: MOISES ESTRADA Status:REG ER Location: ED HPI History of Present Illness Chief Complaint: Chest Pain Informant: patient Onset/Context/Timing Onset: Today Activity at onset: sudden Timing: Continuous Quality: Positive for Sharp Location: Substernal Worsened By: Nothing Relieved By: - (Doing breathing exercises) Associated Symptoms: Positive for Diaphoresis, Dyspnea, Lightheadedness and Palpitations; Negative for Nausea, Vomiting, Cough, Fever or Acid Reflux Narrative Narrative: Patient presents with chest pain that began today. Patient states it woke her up around 3 AM. Patient states it began rather suddenly. Patient describes it as sharp. Patient states it has resolved since she arrived here in the emergency department. Patient admits to some shortness of breath. Patient states her pain did get better after doing some breathing exercises. Patient states she did break out in a sweat when the pain began. Patient states she also felt like her heart was racing and she was lightheaded. Patient states she had a recent total knee replacement 3 weeks ago. CVD Risk Factors: Positive for Hypertension, Diabetes and Hypercholesterolemia PE Risk Factors: Positive for Recent Travel/Surgery and Recent Immobilization; Negative for Prior DVT or PE or Cancer PFSH PFSH Medical History Acute bronchitis, unspecified Acute sinusitis, unspecified Urinary tract infection History of DVT (deep vein thrombosis) Paroxysmal atrial flutter RUTH (obstructive sleep apnea) Anxiety and depression Paroxysmal atrial fibrillation Essential hypertension Contusion of left elbow, initial encounter Encounter for screening for COVID-19 Contact with or suspected exposure to other viral communicable disease History of stroke History of pulmonary embolism Hyperlipidemia Type 2 diabetes mellitus Home Medications ???Medication ???Instructions ???Recorded ???Last Taken ???Type amlodipine 5 mg tablet 10 mg PO DAILY BLOOD PRESSURE 10/10/15 02/12/23 History albuterol sulfate 90 mcg/actuation 2 puff inhalation Q4H PRN 02/12/23 02/11/23 History aerosol inhaler shortness of breath or wheezing gabapentin 800 mg tablet 800 mg PO DAILY nerve pain 02/12/23 02/11/23 History atorvastatin 10 mg tablet (Lipitor) 10 mg PO QHS 03/17/23 Unknown History levofloxacin 500 mg tablet 500 mg PO DAILY #10 tabs 03/30/23 Unknown Rx amoxicillin 875 mg-potassium 1 tab PO BID #20 tabs 08/24/23 Unknown Rx clavulanate 125 mg tablet hydrocodone-acetaminophen 5-325mg 1 tab PO Q6H PRN PRN Pain 3 days 09/19/23 Unknown Rx 5mg-325mg #10 TABLETS Allergy/AdvReac Type Severity Reaction Status Date / Time lisinopril Allergy Unknown Unknown Verified 09/19/23 10:53 latex Allergy Rash Verified 09/19/23 10:53 oxycodone (Oxycodone) AdvReac Itching Verified 09/19/23 10:53 Family History Mother Diabetes Cancer Myocardial infarction Hypertension Father Myocardial infarction Heart disease Hypertension Brother Cancer Hypertension Sister Bipolar disorder Schizophrenia Hypertension Surgical History History of cerebral aneurysm repair ( 2012) History of shoulder surgery History of carpal tunnel release History of appendectomy History of hysterectomy History of cholecystectomy History of total knee replacement Social History Smoking Status: Never smoker alcohol intake: never substance use type: does not use caffeine: Yes Type: carbonated beverages Number of servings: 1 ROS ROS ED Constitutional Constitutional ED: Denies chills or fever(s) Eyes Eyes: Denies blurry vision or change in vision ENT ENT ED: Denies rhinorrhea or sore throat Cardiovascular Cardiovascular: Reports chest pain and palpitations Respiratory/Chest Respiratory/Chest: Reports dyspnea; Denies cough Gastrointestinal Gastrointestinal: Denies abdominal pain, nausea or vomiting Genitourinary Genitourinary ED: Reports dysuria; Denies hematuria Musculoskeletal Musculoskeletal: Denies back pain or neck pain Integumentary Denies abscess or rash Neurologic Neurologic: Reports headache(s); Denies weakness Allergic/Immunologic Allergic/Immunologic ED: Denies mouth swelling or urticaria EXAM Physical Exam Const Vital Signs: 03/13/24 10:42 03/13/24 10:47 03/13/24 11:01 Temperature 97.2 F L Temperature Source Oral Pulse Rate 58 (more content not included)... Normal [facility] L501.4020on 03-13-2024 TROPONIN-I HS 8 pg/mL Normal 3.0-54.0 [facility] Comment on above: Result Comment: Plea se Note: New Test Units and Gender Specific Reference Ranges. For more information see Policy Stat Procedure [place] High Sensitivity Troponin (TNIH) and attachments. Performed By: #### L 501.4020 #### [facility] Laboratory [address] [place], [place], [address] Order Comment: 1 Y Performed By: #### L 500.2500, L100.0100, L501.5425 #### [facility] Laboratory [address] [place], [address] Urinalysis, Completeon 03-13 BACTERIA RARE Normal None Seen [facility] Comment on above: Order Comment: CLEAN CATCH Performed By: #### L 400.0001 #### [facility] Laboratory [address] [place], [address] EPI,SQUAMOUS 5-10 SEEN Normal 5-10 [facility] Comment on above: Order Comment: CLEAN CATCH Performed By: #### L 400.0001 #### [facility] Laboratory [address] [place], [address] RBC 0-5 SEEN Normal 0-5 [facility] Comment on above: Order Comment: CLEAN CATCH Performed By: #### L 400.0001 #### [facility] Laboratory [address] [place], [address] WBC 0-5 SEEN Normal 0-5 [facility] Comment on above: Order Comment: CLEAN CATCH Performed By: #### L 400.0001 #### [facility] Laboratory [address] [place], [address] Mucus Ql (Urine sed) 0 SEEN Normal [facility] Comment on above: Order Comment: CLEAN CATCH Performed By: #### L 400.0001 #### [facility] Laboratory [address] [place], [address] [id number] 03-09-2024 [id number] HNO ID: [id number] Author: SKY ALFARO PT Service: ? Author Type: Physical Therapist Type: [id number] Filed: 03/09/2024 13:12 Note Text: [facility] Physical Therapy Plan of Care Certification Patient Name: Caden Llamas : 1955 CC #: [id number] Date: 03/09/2024 To: Marcello Lloyd PA-C From Therapist: Sky Alfaro PT RE: Patient Certification/ Recertification Your review, approval and electronic signature are required in order to comply with Payor: [employer] / Plan: BLUE ACCESS PPO / Product Type: PPO / regulations. The identified Physical Therapy PLAN OF CARE for the patient is as follows: Z96.652 S/P total knee arthroplasty, left (primary encounter diagnosis) PLAN OF CARE: Assessment: Caden Llamas presents with diagnosis of status-post L TKA that interferes with walking in the community, stair negotiation, squatting, physical activities, working ((Also, Laying on L Side)) . She presents with impairments in ADL's, gait, independence in exercise, overall function, range of motion, soft tissue healing, strength, symptom management, and tissue tenderness. Moderate-max deficits in Knee Extension motion currently. PROMIS? (Patient-Reported Outcomes Measurement Information System) scores were reviewed and identified as a rehabilitation concern. Prognosis for therapy is Good due to: current objective clinical presentation, acuteness of condition, good support system/ coping skills .She will benefit from skilled therapy services to meet the goals established for this plan of care as noted below. Goals for Episode of Care: established 03/09/24 to 06/01/24. - Patient reported outcome of physical function will increase T-score by a minimum 5 points. - [place]hing in home exercise program. - Patient will decrease pain rating by 2 points to meet minimal clinical important difference for numeric pain rating scale. - Patient will increase active ROM of L knee to 0-130 degrees to allow the patient to improve walking in the community and stair navigation as well as performance of ADLs/IADLs. - Patient will demonstrate increase in LLE strength to 5/5 during manual muscle testing in order to improve function for basic self-care tasks, home management tasks, leisure/recreation skills, and prior functional tasks. - Perform gait unassisted with improved mechanics/deviations and decreased report of symptoms/pain in 10 weeks or less. - Normal Reciprocal Gait for improved QOL Patient Goals: Walk unassisted; return to work. Time Frame for Goals and Treatment : 06/01/24 Planned Interventions, Frequency, and Duration: Current Frequency: 2x/week Duration: 8 weeks Total Number of Visits Planned: 16 Planned Treatment Interventions: Therapeutic exercise (46614), Neuromuscular re-education (93088), Manual therapy (31214), Therapeutic activities (45331), Self-fci management (99892), Gait Training (07027), Patient/Family/Caregiver Education PLAN FOR NEXT VISIT: Assess response to HEP; Knee motion dread. Ext; quad strength. Patient demonstrates good understanding of plan of care and treatment. The above goals and plan of care were discussed and agreed upon by patient/family. For further details regarding this patient refer to the Physical Therapy electronically documented visit dated 03/09/2024. Provider Attestation I have reviewed the treatment plan for Caden Llamas, [facility]# [id number] for the period of 03/09/24 -- 04/15/24, established on 03/09/2024. Signature certifies the need for therapy services. Normal [facility] CNTHERAPYon 03-09-2024 CNTHERAPY OT/PT/Speech Visit ( PTWS) ----- CADEN LLAMAS ([id number]) 1955 F Date Time Provider Department 03/09/24 10:45 AM SKY ALFARO PTWS Date Time Provider Department [place] 03/09/2024 10:45 AM [id number], [facility] PTWS T[facility] Grider Reason for Visit: PT Eval [747] PT Discharge [752] Primary Visit Diagnosis:S/P total knee arthroplasty, left [Z96.652] Allergies As of Date: 03/09/2024 Noted Allergy Reaction CATS 02/20/2012 7 - Swelling LATEX 02/20/2012 2 - Rash LISINOPRIL 10/27/2018 7 - Swelling Comments: Tongue swells up Date Reviewed: 03/03/2024 Reviewed by: Jeffry Koo, PT - Fully Assessed Prescriptions as of 04/21/2024 - ramelteon (ROZEREM) 8 mg tablet Take 1 tablet by mouth daily at bedtime. - methocarbamol (ROBAXIN) 500 mg tablet Take 1 tablet by mouth three times a day as needed (muscle spasms). - amLODIPine (NORVASC) 10 mg tablet Take 1 tablet by mouth once daily. - acetaminophen (TYLENOL) 500 mg tablet Take 2 tablets by mouth every 8 hours as needed for pain. - ascorbic acid, vitamin C, (VITAMIN C) 500 mg tablet Take 1 tablet by mouth two times a day with meals for 27 doses. - aspirin, enteric coated (ASPIRIN, ENTERIC COATED) 81 mg EC tablet Take 1 tablet by mouth two times a day for 28 days. - omeprazole (PRILOSEC) 40 mg capsule Take 1 capsule by mouth once daily. - gabapentin (NEURONTIN) 800 mg tablet Take 1 tablet by mouth three times a day for 180 days. - carvedilol (COREG) 12.5 mg tablet 1 tablet two times a day with meals. - ergocalciferol 50,000 unit capsule (VITAMIN D2, DRISDOL) Take 1 capsule by mouth one time a week. - meclizine (ANTIVERT) 25 mg tab Take 25 mg by mouth once daily. - albuterol HFA (PROAIR HFA) 90 mcg/actuation inhaler Inhale 1 Puff as instructed every 4 hours as needed for wheezing/shortness of breath. - ferrous sulfate 325 mg (65 mg iron) tablet Take 325 mg by mouth daily with breakfast. - CPAP Normal [facility] CNPNon 02-19-2024 CNPN Telephone (HCSIND) ----- CADEN LLAMAS ([id number]) 1955 F Date Time Provider Department 02/19/24 JEFFRY KOO HCSIND During your visit today, we recorded the following information about you: Jeffry Koo, PT 02/19/2024 3:24 PM [facility]igned [facility] Caden wanted to set up OP PT herself and then she forgot so we called today and they can't get her in until the of the . Is it ok if we continue home care for 2 visits the week of the to bridge the gap?? Thanks Jeffry PT Allergies As of Date: 02/19/2024 Noted Allergy Reaction CATS 02/20/2012 7 - Swelling LATEX 02/20/2012 2 - Rash LISINOPRIL 10/27/2018 7 - Swelling Comments: Tongue swells up Date Reviewed: 02/19/2024 Reviewed by: Jeffry Koo, PT - Fully Assessed Reason for Visit: Home Care [4073] Cmt: PT orders Prescriptions as of 02/19/2024 - oxyCODONE IR (ROXICODONE) 5 mg immediate release tablet Take 1-2 tablets by mouth every 6 hours as needed for pain for up to 7 days. for pain. - methocarbamol (ROBAXIN) 500 mg tablet Take 1 tablet by mouth three times a day as needed (muscle spasms). - amLODIPine (NORVASC) 10 mg tablet Take 1 tablet by mouth once daily. - acetaminophen (TYLENOL) 500 mg tablet Take 2 tablets by mouth every 8 hours as needed for pain. - ascorbic acid, vitamin C, (VITAMIN C) 500 mg tablet Take 1 tablet by mouth two times a day with meals for 27 doses. - aspirin, enteric coated (ASPIRIN, ENTERIC COATED) 81 mg EC tablet Take 1 tablet by mouth two times a day for 28 days. - docusate sodium (COLACE) 100 mg capsule Take 1 capsule by mouth two times a day as needed for constipation. - omeprazole (PRILOSEC) 40 mg capsule Take 1 capsule by mouth once daily. - gabapentin (NEURONTIN) 800 mg tablet Take 1 tablet by mouth three times a day for 180 days. - carvedilol (COREG) 12.5 mg tablet 1 tablet two times a day with meals. - traZODone (DESYREL) 50 mg tablet Take 1 tablet by mouth daily at bedtime. - ergocalciferol 50,000 unit capsule (VITAMIN D2, DRISDOL) Take 1 capsule by mouth one time a week. - meclizine (ANTIVERT) 25 mg tab Take 25 mg by mouth once daily. - albuterol HFA (PROAIR HFA) 90 mcg/actuation inhaler Inhale 1 Puff as instructed every 4 hours as needed for wheezing/shortness of breath. - ferrous sulfate 325 mg (65 mg iron) tablet Take 325 mg by mouth daily with breakfast. - CPAP Problem List As Of Date 02/19/2024 Noted Resolved Climacteric [N95.1] 03/23/2012 Arthritis of knee, left [M17.12] 10/21/2012 10/20/2018 Right shoulder injury [S49.91XA] 10/21/2012 10/20/2018 Hypertension [I10] 10/21/2012 Type II or unspecified type diabetes mellitus w*10/21/2012 10/20/2018 H/O Pulmonary embolism (HCC) [I26.99] 12/13/2012 04/16/2023 Hyperlipidemia with target low density lipoprot*02/25/2013 Arthritis of right knee [M17.11] 05/21/2013 Rotator cuff disorder [M67.919] 05/21/2013 10/20/2018 Urinary incontinence [R32] 10/04/2015 Lower urinary tract symptoms (LUTS) [R39.9] 10/04/2015 H/O Brain Aneurysm [I67.1] 10/20/2018 H/O Stroke (HCC) [I63.9] 10/20/2018 Asthma [J45.909] 10/20/2018 Diabetes mellitus type 2, uncomplicated (HCC) [*10/20/2018 Peripheral neuropathy [G62.9] 10/20/2018 WEISS (dyspnea on exertion) [R06.09] 10/20/2018 Chest pain of uncertain etiology [R07.9] 10/20/2018 Stage 2 chronic kidney disease [N18.2] 10/20/2018 Anemia [D64.9] 10/20/2018 Anxiety [F41.9] 10/20/2018 Morbidly obese (HCC) [E66.01] 10/20/2018 RUTH (obstructive sleep apnea) [G47.33] 10/20/2018 S/P total knee replacement [Z96.659] 10/27/2018 Post-traumatic osteoarthritis of right shoulder*08/02/2019 Rotator cuff syndrome of left shoulder [M75.102]11/02/2019 Atrial fibrillation ([facility]) [I48.91] 04/16/2023 Obesity, Class III, BMI >= 40 [E66.01] 02/02/2024 S/P total knee arthroplasty, left [Z96.652] 02/03/2024 Encounter Status:Closed by JEFFRY KOO on 02/19/24 Normal [facility] CNPN Telephone (HCSIND) ----- CADEN LLAMAS ([id number]) 1955 F Date Time Provider Department 8/9/24 JEFFRY KOO HCSIND During your visit today, we recorded the following information about you: Jeffry Koo, PT 02/19/2024 3:30 PM Signed Pt only seen for 2 visits this week due to illness. Pt cancelled 02/16 visit and requested not to reschedule the visit Allergies As of Date: 02/19/2024 Noted Allergy Reaction CATS 02/20/2012 7 - Swelling LATEX 02/20/2012 2 - Rash LISINOPRIL 10/27/2018 7 - Swelling Comments: Tongue swells up Date Reviewed: 02/19/2024 Reviewed by: eJffry Koo, PT - Fully Assessed Reason for Visit: Home Care [4073] Cmt: Missed visit Prescriptions as of 02/19/2024 - oxyCODONE IR (ROXICODONE) 5 mg immediate release tablet Take 1-2 tablets by mouth every 6 hours as needed for pain for up to 7 days. for pain. - methocarbamol (ROBAXIN) 500 mg tablet Take 1 tablet by mouth three times a day as needed (muscle spasms). - amLODIPine (NORVASC) 10 mg tablet Take 1 tablet by mouth once daily. - acetaminophen (TYLENOL) 500 mg tablet Take 2 tablets by mouth every 8 hours as needed for pain. - ascorbic acid, vitamin C, (VITAMIN C) 500 mg tablet Take 1 tablet by mouth two times a day with meals for 27 doses. - aspirin, enteric coated (ASPIRIN, ENTERIC COATED) 81 mg EC tablet Take 1 tablet by mouth two times a day for 28 days. - docusate sodium (COLACE) 100 mg capsule Take 1 capsule by mouth two times a day as needed for constipation. - omeprazole (PRILOSEC) 40 mg capsule Take 1 capsule by mouth once daily. - gabapentin (NEURONTIN) 800 mg tablet Take 1 tablet by mouth three times a day for 180 days. - carvedilol (COREG) 12.5 mg tablet 1 tablet two times a day with meals. - traZODone (DESYREL) 50 mg tablet Take 1 tablet by mouth daily at bedtime. - ergocalciferol 50,000 unit capsule (VITAMIN D2, DRISDOL) Take 1 capsule by mouth one time a week. - meclizine (ANTIVERT) 25 mg tab Take 25 mg by mouth once daily. - albuterol HFA (PROAIR HFA) 90 mcg/actuation inhaler Inhale 1 Puff as instructed every 4 hours as needed for wheezing/shortness of breath. - ferrous sulfate 325 mg (65 mg iron) tablet Take 325 mg by mouth daily with breakfast. - CPAP Problem List As Of Date 02/19/2024 Noted Resolved Climacteric [N95.1] 03/23/2012 Arthritis of knee, left [M17.12] 10/21/2012 10/20/2018 Right shoulder injury [S49.91XA] 10/21/2012 10/20/2018 Hypertension [I10] 10/21/2012 Type II or unspecified type diabetes mellitus w*10/21/2012 10/20/2018 H/O Pulmonary embolism (HCC) [I26.99] 12/13/2012 04/16/2023 Hyperlipidemia with target low density lipoprot*02/25/2013 Arthritis of right knee [M17.11] 05/21/2013 Rotator cuff disorder [M67.919] 05/21/2013 10/20/2018 Urinary incontinence [R32] 10/04/2015 Lower urinary tract symptoms (LUTS) [R39.9] 10/04/2015 H/O Brain Aneurysm [I67.1] 10/20/2018 H/O Stroke (HCC) [I63.9] 10/20/2018 Asthma [J45.909] 10/20/2018 Diabetes mellitus type 2, uncomplicated (HCC) [*10/20/2018 Peripheral neuropathy [G62.9] 10/20/2018 WEISS (dyspnea on exertion) [R06.09] 10/20/2018 Chest pain of uncertain etiology [R07.9] 10/20/2018 Stage 2 chronic kidney disease [N18.2] 10/20/2018 Anemia [D64.9] 10/20/2018 Anxiety [F41.9] 10/20/2018 Morbidly obese (HCC) [E66.01] 10/20/2018 RUTH (obstructive sleep apnea) [G47.33] 10/20/2018 S/P total knee replacement [Z96.659] 10/27/2018 Post-traumatic osteoarthritis of right shoulder*08/02/2019 Rotator cuff syndrome of left shoulder [M75.102]11/02/2019 Atrial fibrillation (HCC) [I48.91] 04/16/2023 Obesity, Class III, BMI >= 40 [E66.01] 02/02/2024 S/P total knee arthroplasty, left [Z96.652] 02/03/2024 Encounter Status:Closed by JEFFRY KOO on 02/19/24 Normal [facility] XR Knee AP and Lateral and Luz avalos 02-17-2024 IMPRESSION: Intact LEFT total knee arthroplasty. Head Girls Golf Coach: PSCLee Transcribe Date/Time: Feb 17 2024 5:22P Dictated by : TASHIA FLEMING DO This examination was interpreted and the report reviewed and electronically signed by: TASHIA FLEMING DO on Feb 17 2024 5:23PM [facility] * * *Final Report* * * DATE OF EXAM: Feb 15 2024 2:01PM RONAL 5208 - XR KNEE 3V AP/LAT/MERCHANT LT / PROCEDURE REASON: M25.562-Left knee pain, unspecified chronicity * * * * Physician Interpretation * * * * EXAMINATION: XR KNEE 3V AP/LAT/MERCHANT LT PATIENT/TECHNOLOGIST PROVIDED HISTORY: 1st follow-up for left knee replacement CLINICAL INFORMATION: 69 years old Female with Left knee pain, unspecified chronicity TECHNIQUE: XR KNEE 3V AP/LAT/MERCHANT LT Laterality: LEFT Number of different views (projections): 3 COMPARISON: Radiographs 02/02/2024, 11/30/2023 RESULT: Status post LEFT total knee arthroplasty with metal-backed patellar component unchanged in alignment and position. No periprosthetic lucency or fracture. Interval resolution of postoperative soft tissue gas. Unchanged RIGHT total knee arthroplasty with metal-backed patellar component. [facility] Provider, Drew Jimenez - 02/17/2024 * * *Final Report* * * DATE OF EXAM: Feb 15 2024 2:01PM RONAL 5208 - XR KNEE 3V AP/LAT/MERCHANT LT / PROCEDURE REASON: M25.562-Left knee pain, unspecified chronicity * * * * Physician Interpretation * * * * EXAMINATION: XR KNEE 3V AP/LAT/MERCHANT LT PATIENT/TECHNOLOGIST PROVIDED HISTORY: 1st follow-up for left knee replacement CLINICAL INFORMATION: 69 years old Female with Left knee pain, unspecified chronicity TECHNIQUE: XR KNEE 3V AP/LAT/MERCHANT LT Laterality: LEFT Number of different views (projections): 3 COMPARISON: Radiographs 02/02/2024, 11/30/2023 RESULT: Status post LEFT total knee arthroplasty with metal-backed patellar component unchanged in alignment and position. No periprosthetic lucency or fracture. Interval resolution of postoperative soft tissue gas. Unchanged RIGHT total knee arthroplasty with metal-backed patellar component. IMPRESSION IMPRESSION: Intact LEFT total knee arthroplasty. Head Girls Golf Coach: PSCB Transcribe Date/Time: Feb 17 2024 5:22P Dictated by : TASHIA FLEMING DO This examination was interpreted and the report reviewed and electronically signed by: TASHIA FLEMING DO on Feb 17 2024 5:23PM [facility] XR Knee AP and Lateral and M erchantsOrdered By: Drew Provider on 02-17-2024 [facility] CNOVon 02-15-2024 CNOV Office Visit (ORNA ) ----- CADEN LLAMAS ([id number]) 1955 F Date Time Provider Department 02/15/24 1:30 PM MARCELLO LLOYD During your visit today, we recorded the following information about you: Marcello Lloyd PA-C 02/15/2024 2:28 PM Signed Post-op Office Visit Caden Muriel 69 year old February 15, 2024 1:22 PM Surgery Date: 02/02/2024 History: Caden Llamas is now 2 weeks out from robotic assisted left TKA. Post-operative course has been without complication. No readmissions. The patient was discharged from [facility] to home with home health care on 02/03/2024. Subjective: Patient reports pain is not well controlled today. The patient states she ran out of her oxycodone recently. She did not know to contact our office for pain medicine refills. She states her pain was well controlled when taking the oxycodone. She also reports intermittent muscle spasms in operative leg; requesting muscle relaxer. She is using walker ambulatory aid. Patients rates her condition as slowly improving. Reports compliance with DVT ppx. Participating in home PT. Objective: Left knee: Patient is in wheelchair Incision well-approximated, no drainage, well-healing. Suture tails trimmed today. Knee ROM 10 - 80 degrees; limited due to inadequate pain control Distally DP/PT palpable Distally SILT S/S/SP/DP/T intact at baseline Distally DF/PF motor intact at baseline Negative olayinka/calf tenderness Xrays: Well-positioned total knee replacement in appropriate alignment with no evidence of loosening Assessment and Plan: 69 year old female 2 weeks status post robotic assisted left total knee arthroplasty - PDMP website reviewed and validated. Patient has been compliant and taking medication appropriately without evidence of suspicious activity. Will refill Rx and send in muscle relaxer. Patient understands not to take the muscle relaxer and oxycodone together due to the sedating effects. - continue ice, rest, and use of non-narcotic analgesia as needed - reviewed antibiotic prophylactic protocols - discussed home exercises and therapy. Emphasis on knee extension - continue ASA DVT prophylaxis for 4 weeks total - WBAT on operative extremity - discussed driving requirement: 4 weeks post-op, off narcotic pain medication, adequate brake time - follow up in 4 weeks for repeat clinical evaluation with Dr. Bradley Normal post-operative course discussed with patient. Patient reassured and supported. All questions answered. Lm Lloyd PA-C Orthopaedic Surgery Allergies As of Date: 02/15/2024 Noted Allergy Reaction CATS 02/20/2012 7 - Swelling LATEX 02/20/2012 2 - Rash LISINOPRIL 10/27/2018 7 - Swelling Comments: Tongue swells up Date Reviewed: 02/15/2024 Reviewed by: Hina Sandoval LPN - Fully Assessed Reason for Visit: Post Op [174] Knee Pain [132] Primary Visit Diagnosis:S/P total knee arthroplasty, left [Z96.652] Order(s):CONSULT TO PHYSICAL THERAPY [9085] Order #: [id number]: 1 FUTURE oxyCODONE IR (ROXICODONE) 5 mg immediate release tabletTake 1-2 tablets by mouth every 6 hours as needed for pain for up to 7 days. for pain.Disp: 50 tabletRfl: 0 methocarbamol (ROBAXIN) 500 mg tabletTake 1 tablet by mouth three times a day as needed (muscle spasms).Disp: 15 tabletRfl: 0 Prescriptions as of 02/15/2024 - oxyCODONE IR (ROXICODONE) 5 mg immediate release tablet Take 1-2 tablets by mouth every 6 hours as needed for pain for up to 7 days. for pain. - methocarbamol (ROBAXIN) 500 mg tablet Take 1 tablet by mouth three times a day as needed (muscle spasms). - amLODIPine (NORVASC) 10 mg tablet Take 1 tablet by mouth once daily. - acetaminophen (TYLENOL) 500 mg tablet Take 2 tablets by mouth every 8 hours as needed for pain. - ascorbic acid, vitamin C, (VITAMIN C) 500 mg tablet Take 1 tablet by mouth two times a day with meals for 27 doses. - aspirin, enteric coated (ASPIRIN, ENTERIC COATED) 81 mg EC tablet Take 1 tablet by mouth two times a day for 28 days. - docusate sodium (COLACE) 100 mg capsule Take 1 capsule by mouth two times a day as needed for constipation. - omeprazole (PRILOSEC) 40 mg capsule Take 1 capsule by mouth once daily. - gabapentin (NEURONTIN) 800 mg tablet Take 1 tablet by mouth three times a day for 180 days. - carvedilol (COREG) 12.5 mg tablet 1 tablet two times a day with meals. - traZODone (DESYREL) 50 mg tablet Take 1 tablet by mouth daily at bedtime. - ergocalciferol 50,000 unit capsule (VITAMIN D2, DRISDOL) Take 1 capsule by mouth one time a week. - meclizine (ANTIVERT) 25 mg tab Take 25 mg by mouth once daily. - albuterol HFA (PROAIR HFA) 90 mcg/actuation inhaler Inhale 1 Puff as instructed every 4 hours as needed for wheezing/shortness of breath. - ferrous sulfate 325 mg (65 mg iron) tablet Take 325 mg by mouth daily wi (more content not included)... [facility]HCSIND[facility] ----- CADEN LLAMAS ([id number]) 1955 F Date Time Provider Department 02/15/24 JEFFRY KOO HCSIND During your visit today, we recorded the following information about you: Jeffry Koo, PT 02/15/2024 8:31 AM Signed Good morning Could you enter OP PT order for Caden please. I will start the process of getting Op set up for her Thank You Jeffry PT Allergies As of Date: 02/15/2024 Noted Allergy Reaction CATS 02/20/2012 7 - Swelling LATEX 02/20/2012 2 - Rash LISINOPRIL 10/27/2018 7 - Swelling Comments: Tongue swells up Date Reviewed: 02/12/2024 Reviewed by: Evelyn Jorgensen PTA - Fully Assessed Reason for Visit: Home Care [4073] Cmt: OP PT orders Prescriptions as of 02/15/2024 - amLODIPine (NORVASC) 10 mg tablet Take 1 tablet by mouth once daily. - acetaminophen (TYLENOL) 500 mg tablet Take 2 tablets by mouth every 8 hours as needed for pain. - ascorbic acid, vitamin C, (VITAMIN C) 500 mg tablet Take 1 tablet by mouth two times a day with meals for 27 doses. - aspirin, enteric coated (ASPIRIN, ENTERIC COATED) 81 mg EC tablet Take 1 tablet by mouth two times a day for 28 days. - docusate sodium (COLACE) 100 mg capsule Take 1 capsule by mouth two times a day as needed for constipation. - omeprazole (PRILOSEC) 40 mg capsule Take 1 capsule by mouth once daily. - gabapentin (NEURONTIN) 800 mg tablet Take 1 tablet by mouth three times a day for 180 days. - carvedilol (COREG) 12.5 mg tablet 1 tablet two times a day with meals. - traZODone (DESYREL) 50 mg tablet Take 1 tablet by mouth daily at bedtime. - ergocalciferol 50,000 unit capsule (VITAMIN D2, DRISDOL) Take 1 capsule by mouth one time a week. - meclizine (ANTIVERT) 25 mg tab Take 25 mg by mouth once daily. - albuterol HFA (PROAIR HFA) 90 mcg/actuation inhaler Inhale 1 Puff as instructed every 4 hours as needed for wheezing/shortness of breath. - ferrous sulfate 325 mg (65 mg iron) tablet Take 325 mg by mouth daily with breakfast. - CPAP Problem List As Of Date 02/15/2024 Noted Resolved Climacteric [N95.1] 03/23/2012 Arthritis of knee, left [M17.12] 10/21/2012 10/20/2018 Right shoulder injury [S49.91XA] 10/21/2012 10/20/2018 Hypertension [I10] 10/21/2012 Type II or unspecified type diabetes mellitus w*10/21/2012 10/20/2018 H/O Pulmonary embolism (HCC) [I26.99] 12/13/2012 04/16/2023 Hyperlipidemia with target low density lipoprot*02/25/2013 Arthritis of right knee [M17.11] 05/21/2013 Rotator cuff disorder [M67.919] 05/21/2013 10/20/2018 Urinary incontinence [R32] 10/04/2015 Lower urinary tract symptoms (LUTS) [R39.9] 10/04/2015 H/O Brain Aneurysm [I67.1] 10/20/2018 H/O Stroke (HCC) [I63.9] 10/20/2018 Asthma [J45.909] 10/20/2018 Diabetes mellitus type 2, uncomplicated (HCC) [*10/20/2018 Peripheral neuropathy [G62.9] 10/20/2018 WEISS (dyspnea on exertion) [R06.09] 10/20/2018 Chest pain of uncertain etiology [R07.9] 10/20/2018 Stage 2 chronic kidney disease [N18.2] 10/20/2018 Anemia [D64.9] 10/20/2018 Anxiety [F41.9] 10/20/2018 Morbidly obese (HCC) [E66.01] 10/20/2018 RUTH (obstructive sleep apnea) [G47.33] 10/20/2018 S/P total knee replacement [Z96.659] 10/27/2018 Post-traumatic osteoarthritis of right shoulder*08/02/2019 Rotator cuff syndrome of left shoulder [M75.102]11/02/2019 Atrial fibrillation (HCC) [I48.91] 04/16/2023 Obesity, Class III, BMI >= 40 [E66.01] 02/02/2024 S/P total knee arthroplasty, left [Z96.652] 02/03/2024 Encounter Status:Closed by JEFFRY KOO on 02/15/24 Normal [facility] XR KNEE 3V AP/LAT/MERCHANT L Ton 02-15-2024 XR KNEE 3V AP/LAT/MERCHANT LT * * *Final Report* * * DATE OF EXAM: Feb 15 2024 2:01PM RONAL 5208 - XR KNEE 3V AP/LAT/MERCHANT LT / PROCEDURE REASON: M25.562-Left knee pain, unspecified chronicity * * * * Physician Interpretation * * * * EXAMINATION: XR KNEE 3V AP/LAT/MERCHANT LT PATIENT/TECHNOLOGIST PROVIDED HISTORY: 1st follow-up for left knee replacement CLINICAL INFORMATION: 69 years old Female with Left knee pain, unspecified chronicity TECHNIQUE: XR KNEE 3V AP/LAT/MERCHANT LT Laterality: LEFT Number of different views (projections): 3 COMPARISON: Radiographs 02/02/2024, 11/30/2023 RESULT: Status post LEFT total knee arthroplasty with metal-backed patellar component unchanged in alignment and position. No periprosthetic lucency or fracture. Interval resolution of postoperative soft tissue gas. Unchanged RIGHT total knee arthroplasty with metal-backed patellar component. IMPRESSION: Intact LEFT total knee arthroplasty. Head Girls Golf Coach: PSCB Transcribe Date/Time: Feb 17 2024 5:22P Dictated by : TASHIA FLEMING DO This examination was interpreted and the report reviewed and electronically signed by: TASHIA FLEMING DO on Feb 17 2024 5:23PM EST [id number] [facility] XR Knee AP and Lateral and M erchantson 02-15-2024 Radiology Study observation (narrative) [facility] 02-10-2024 CNPN Telephone (HCSIND) ----- CADEN LLAMAS ([id number]) 1955 F Date Time Provider Department 02/10/24 JEFFRY KOO HCSIND During your visit today, we recorded the following information about you: Jeffry Koo, PT 02/10/2024 5:03 PM Signed Moises Ledbetter BP was 164/94 at today's visit Her pain was elevated as she did not take any narcotic pain meds.during the night last night. She does have her BP meds now and insists that she took them Please let her know if you want her to make any changes Jeffry PT Moises Malcolm, 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 02/11/2024 1:01 PM Signed Addended by: MOISES MALCOLM on: 02/11/2024 01:01 PM Modules accepted: Orders Allergies As of Date: 02/10/2024 Noted Allergy Reaction CATS 02/20/2012 7 - Swelling LATEX 02/20/2012 2 - Rash LISINOPRIL 10/27/2018 7 - Swelling Comments: Tongue swells up Date Reviewed: 02/08/2024 Reviewed by: Jeffry Koo, PT - Fully Assessed Reason for Visit: Home Care [4073] Primary Visit Diagnosis:Hypertension, unspecified type [I10] Order(s):amLODIPine (NORVASC) 10 mg tabletTake 1 tablet by mouth once daily.Disp: 90 tabletRfl: 1 Prescriptions as of 02/11/2024 - amLODIPine (NORVASC) 10 mg tablet Take 1 tablet by mouth once daily. - acetaminophen (TYLENOL) 500 mg tablet Take 2 tablets by mouth every 8 hours as needed for pain. - ascorbic acid, vitamin C, (VITAMIN C) 500 mg tablet Take 1 tablet by mouth two times a day with meals for 27 doses. - aspirin, enteric coated (ASPIRIN, ENTERIC COATED) 81 mg EC tablet Take 1 tablet by mouth two times a day for 28 days. - docusate sodium (COLACE) 100 mg capsule Take 1 capsule by mouth two times a day as needed for constipation. - polyethylene glycol 3350 (MIRALAX) 17 gram/dose powder Take 17 g by mouth once daily as needed for constipation for up to 10 days. Dissolve dose in 4 - 8 ounces of liquid and take as directed. - omeprazole (PRILOSEC) 40 mg capsule Take 1 capsule by mouth once daily. - gabapentin (NEURONTIN) 800 mg tablet Take 1 tablet by mouth three times a day for 180 days. - carvedilol (COREG) 12.5 mg tablet 1 tablet two times a day with meals. - traZODone (DESYREL) 50 mg tablet Take 1 tablet by mouth daily at bedtime. - ergocalciferol 50,000 unit capsule (VITAMIN D2, DRISDOL) Take 1 capsule by mouth one time a week. - meclizine (ANTIVERT) 25 mg tab Take 25 mg by mouth once daily. - albuterol HFA (PROAIR HFA) 90 mcg/actuation inhaler Inhale 1 Puff as instructed every 4 hours as needed for wheezing/shortness of breath. - ferrous sulfate 325 mg (65 mg iron) tablet Take 325 mg by mouth daily with breakfast. - CPAP Problem List As Of Date 02/10/2024 Noted Resolved Climacteric [N95.1] 03/23/2012 Arthritis of knee, left [M17.12] 10/21/2012 10/20/2018 Right shoulder injury [S49.91XA] 10/21/2012 10/20/2018 Hypertension [I10] 10/21/2012 Type II or unspecified type diabetes mellitus w*10/21/2012 10/20/2018 H/O Pulmonary embolism (HCC) [I26.99] 12/13/2012 04/16/2023 Hyperlipidemia with target low density lipoprot*02/25/2013 Arthritis of right knee [M17.11] 05/21/2013 Rotator cuff disorder [M67.919] 05/21/2013 10/20/2018 Urinary incontinence [R32] 10/04/2015 Lower urinary tract symptoms (LUTS) [R39.9] 10/04/2015 H/O Brain Aneurysm [I67.1] 10/20/2018 H/O Stroke (HCC) [I63.9] 10/20/2018 Asthma [J45.909] 10/20/2018 Diabetes mellitus type 2, uncomplicated (HCC) [*10/20/2018 Peripheral neuropathy [G62.9] 10/20/2018 WEISS (dyspnea on exertion) [R06.09] 10/20/2018 Chest pain of uncertain etiology [R07.9] 10/20/2018 Stage 2 chronic kidney disease [N18.2] 10/20/2018 Anemia [D64.9] 10/20/2018 Anxiety [F41.9] 10/20/2018 Morbidly obese (HCC) [E66.01] 10/20/2018 RUTH (obstructive sleep apnea) [G47.33] 10/20/2018 S/P total knee replacement [Z96.659] 10/27/2018 Post-traumatic osteoarthritis of right shoulder*08/02/2019 Rotator cuff syndrome of left shoulder [M75.102]11/02/2019 Atrial fibrillation (HCC) [I48.91] 04/16/2023 Obesity, Class III, BMI >= 40 [E66.01] 02/02/2024 S/P total knee arthroplasty, left [Z96.652] 02/03/2024 Prescriptions ordered this encounter Disp Refills Start End AMLODIPINE 10 MG TABLET 90 t* 1 02/11/2024 Route: ORAL Sig: Take 1 tablet by mouth once daily. Medications Discontinued During This Encounter Prescriptions - amLODIPine (NORVASC) 2.5 mg tablet (Discontinued) take 1 tablet by mouth every day - amLODIPine (NORVASC) 5 mg tablet (Discontinued) Take 1 tablet by mouth once daily. Encounter Status:Closed by JEFFRY KOO on 02/10/24 [facility] 02-08-2024 [place] Telephone (HCSIND) ----- CADEN LLAMAS ([id number]) 1955 F Date Time Provider Department 02/08/24 JEFFRY KOO HCSIND During your visit today, we recorded the following information about you: Jeffry Koo, PT 02/08/2024 4:16 PM Signed [facility] Caden's dressing had come off on the upper and lower 1/3 so I went ahead and removed it today.( 1 day early) Photo uploaded for you to review Thanks Jeffry PT Allergies As of Date: 02/08/2024 Noted Allergy Reaction CATS 02/20/2012 7 - Swelling LATEX 02/20/2012 2 - Rash LISINOPRIL 10/27/2018 7 - Swelling Comments: Tongue swells up Date Reviewed: 02/06/2024 Reviewed by: Shonna Roy PT - Fully Assessed Reason for Visit: Home Care [4073] Cmt: Dressing removal Prescriptions as of 02/08/2024 - acetaminophen (TYLENOL) 500 mg tablet Take 2 tablets by mouth every 8 hours as needed for pain. - ascorbic acid, vitamin C, (VITAMIN C) 500 mg tablet Take 1 tablet by mouth two times a day with meals for 27 doses. - aspirin, enteric coated (ASPIRIN, ENTERIC COATED) 81 mg EC tablet Take 1 tablet by mouth two times a day for 28 days. - docusate sodium (COLACE) 100 mg capsule Take 1 capsule by mouth two times a day as needed for constipation. - oxyCODONE IR (ROXICODONE) 5 mg immediate release tablet Take 1-2 tablets by mouth every 6 hours as needed for pain for up to 7 days. - polyethylene glycol 3350 (MIRALAX) 17 gram/dose powder Take 17 g by mouth once daily as needed for constipation for up to 10 days. Dissolve dose in 4 - 8 ounces of liquid and take as directed. - omeprazole (PRILOSEC) 40 mg capsule Take 1 capsule by mouth once daily. - gabapentin (NEURONTIN) 800 mg tablet Take 1 tablet by mouth three times a day for 180 days. - amLODIPine (NORVASC) 5 mg tablet Take 1 tablet by mouth once daily. - carvedilol (COREG) 12.5 mg tablet 1 tablet two times a day with meals. - traZODone (DESYREL) 50 mg tablet Take 1 tablet by mouth daily at bedtime. - amLODIPine (NORVASC) 2.5 mg tablet take 1 tablet by mouth every day - ergocalciferol 50,000 unit capsule (VITAMIN D2, DRISDOL) Take 1 capsule by mouth one time a week. - meclizine (ANTIVERT) 25 mg tab Take 25 mg by mouth. - albuterol HFA (PROAIR HFA) 90 mcg/actuation inhaler Inhale 1 Puff as instructed every 4 hours as needed. - ferrous sulfate 325 mg (65 mg iron) tablet Take 325 mg by mouth daily with breakfast. - CPAP Problem List As Of Date 02/08/2024 Noted Resolved Climacteric [N95.1] 03/23/2012 Arthritis of knee, left [M17.12] 10/21/2012 10/20/2018 Right shoulder injury [S49.91XA] 10/21/2012 10/20/2018 Hypertension [I10] 10/21/2012 Type II or unspecified type diabetes mellitus w*10/21/2012 10/20/2018 H/O Pulmonary embolism (HCC) [I26.99] 12/13/2012 04/16/2023 Hyperlipidemia with target low density lipoprot*02/25/2013 Arthritis of right knee [M17.11] 05/21/2013 Rotator cuff disorder [M67.919] 05/21/2013 10/20/2018 Urinary incontinence [R32] 10/04/2015 Lower urinary tract symptoms (LUTS) [R39.9] 10/04/2015 H/O Brain Aneurysm [I67.1] 10/20/2018 H/O Stroke (HCC) [I63.9] 10/20/2018 Asthma [J45.909] 10/20/2018 Diabetes mellitus type 2, uncomplicated (HCC) [*10/20/2018 Peripheral neuropathy [G62.9] 10/20/2018 WEISS (dyspnea on exertion) [R06.09] 10/20/2018 Chest pain of uncertain etiology [R07.9] 10/20/2018 Stage 2 chronic kidney disease [N18.2] 10/20/2018 Anemia [D64.9] 10/20/2018 Anxiety [F41.9] 10/20/2018 Morbidly obese (HCC) [E66.01] 10/20/2018 RUTH (obstructive sleep apnea) [G47.33] 10/20/2018 S/P total knee replacement [Z96.659] 10/27/2018 Post-traumatic osteoarthritis of right shoulder*08/02/2019 Rotator cuff syndrome of left shoulder [M75.102]11/02/2019 Atrial fibrillation (HCC) [I48.91] 04/16/2023 Obesity, Class III, BMI >= 40 [E66.01] 02/02/2024 S/P total knee arthroplasty, left [Z96.652] 02/03/2024 Encounter Status:Closed by JEFFRY KOO on 02/08/24 [facility] CNPN Telephone (HCSIND) ----- CADEN LLAMAS ([id number]) 1955 F Date Time Provider Department 02/08/24 JEFFRY KOO HCSIND During your visit today, we recorded the following information about you: Jeffry Koo, PT 02/08/2024 4:14 PM Signed Cong Malloy's BP was elevated at today's PT visit 150/99 She reports that she ran out of her BP meds over the weekend so she has not taken any since Thursday. Her spouse if supposed to pick them up this evening Thanks Jeffry PT Allergies As of Date: 02/08/2024 Noted Allergy Reaction CATS 02/20/2012 7 - Swelling LATEX 02/20/2012 2 - Rash LISINOPRIL 10/27/2018 7 - Swelling Comments: Tongue swells up Date Reviewed: 02/06/2024 Reviewed by: Shonna Roy, PT - Fully Assessed Reason for Visit: Home Care [4073] Cmt: Elevated BP Prescriptions as of 02/08/2024 - acetaminophen (TYLENOL) 500 mg tablet Take 2 tablets by mouth every 8 hours as needed for pain. - ascorbic acid, vitamin C, (VITAMIN C) 500 mg tablet Take 1 tablet by mouth two times a day with meals for 27 doses. - aspirin, enteric coated (ASPIRIN, ENTERIC COATED) 81 mg EC tablet Take 1 tablet by mouth two times a day for 28 days. - docusate sodium (COLACE) 100 mg capsule Take 1 capsule by mouth two times a day as needed for constipation. - oxyCODONE IR (ROXICODONE) 5 mg immediate release tablet Take 1-2 tablets by mouth every 6 hours as needed for pain for up to 7 days. - polyethylene glycol 3350 (MIRALAX) 17 gram/dose powder Take 17 g by mouth once daily as needed for constipation for up to 10 days. Dissolve dose in 4 - 8 ounces of liquid and take as directed. - omeprazole (PRILOSEC) 40 mg capsule Take 1 capsule by mouth once daily. - gabapentin (NEURONTIN) 800 mg tablet Take 1 tablet by mouth three times a day for 180 days. - amLODIPine (NORVASC) 5 mg tablet Take 1 tablet by mouth once daily. - carvedilol (COREG) 12.5 mg tablet 1 tablet two times a day with meals. - traZODone (DESYREL) 50 mg tablet Take 1 tablet by mouth daily at bedtime. - amLODIPine (NORVASC) 2.5 mg tablet take 1 tablet by mouth every day - ergocalciferol 50,000 unit capsule (VITAMIN D2, DRISDOL) Take 1 capsule by mouth one time a week. - meclizine (ANTIVERT) 25 mg tab Take 25 mg by mouth. - albuterol HFA (PROAIR HFA) 90 mcg/actuation inhaler Inhale 1 Puff as instructed every 4 hours as needed. - ferrous sulfate 325 mg (65 mg iron) tablet Take 325 mg by mouth daily with breakfast. - CPAP Problem List As Of Date 02/08/2024 Noted Resolved Climacteric [N95.1] 03/23/2012 Arthritis of knee, left [M17.12] 10/21/2012 10/20/2018 Right shoulder injury [S49.91XA] 10/21/2012 10/20/2018 Hypertension [I10] 10/21/2012 Type II or unspecified type diabetes mellitus w*10/21/2012 10/20/2018 H/O Pulmonary embolism (HCC) [I26.99] 12/13/2012 04/16/2023 Hyperlipidemia with target low density lipoprot*02/25/2013 Arthritis of right knee [M17.11] 05/21/2013 Rotator cuff disorder [M67.919] 05/21/2013 10/20/2018 Urinary incontinence [R32] 10/04/2015 Lower urinary tract symptoms (LUTS) [R39.9] 10/04/2015 H/O Brain Aneurysm [I67.1] 10/20/2018 H/O Stroke (HCC) [I63.9] 10/20/2018 Asthma [J45.909] 10/20/2018 Diabetes mellitus type 2, uncomplicated (HCC) [*10/20/2018 Peripheral neuropathy [G62.9] 10/20/2018 WEISS (dyspnea on exertion) [R06.09] 10/20/2018 Chest pain of uncertain etiology [R07.9] 10/20/2018 Stage 2 chronic kidney disease [N18.2] 10/20/2018 Anemia [D64.9] 10/20/2018 Anxiety [F41.9] 10/20/2018 Morbidly obese (HCC) [E66.01] 10/20/2018 RUTH (obstructive sleep apnea) [G47.33] 10/20/2018 S/P total knee replacement [Z96.659] 10/27/2018 Post-traumatic osteoarthritis of right shoulder*08/02/2019 Rotator cuff syndrome of left shoulder [M75.102]11/02/2019 Atrial fibrillation ([facility]) [I48.91] 04/16/2023 Obesity, Class III, BMI >= 40 [E66.01] 02/02/2024 S/P total knee arthroplasty, left [Z96.652] 02/03/2024 Encounter Status:Closed by JEFFRY KOO on 02/08/24 [facility] 02-07-2024 CNPN Telephone (HCSIND) ----- CADEN LLAMAS ([id number]) 1955 F Date Time Provider Department 02/07/24 SHONNA ROY HCSIND During your visit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 [G62.9] 10/20/2018 WEISS (dyspnea on exertion) [R06.09] 10/20/2018 Chest pain of uncertain etiology [R07.9] 10/20/2018 Stage 2 chronic kidney disease [N18.2] 10/20/2018 Anemia [D64.9] 10/20/2018 Anxiety [F41.9] 10/20/2018 Morbidly obese (HCC) [E66.01] 10/20/2018 RUTH (obstructive sleep apnea) [G47.33] 10/20/2018 S/P total knee replacement [Z96.659] 10/27/2018 Post-traumatic osteoarthritis of right shoulder*08/02/2019 Rotator cuff syndrome of left shoulder [M75.102]11/02/2019 Atrial fibrillation (HCC) [I48.91] 04/16/2023 Obesity, Class III, BMI >= 40 [E66.01] 02/02/2024 S/P total knee arthroplasty, left [Z96.652] 02/03/2024 Encounter Status:Closed by BENITES FENCE ERECTORJOHNIE on 02/04/24 Normal [facility] Basic metabolic 2000 panelon 02-03-2024 Anion gap [Moles/Vol] 9 mmol/L Normal 8-15 [facility] Comment on above: Order Comment: Speci men Type: BLOOD SPECIMENOrdering Facility: [facility] Address: [address] [place] [address] Performed By: #### 2 4321-2 ####PARUL LABORATORYCLIA [id number] [place] [address] [place] Calcium [Mass/Vol] 8.6 mg/dL Normal 8.5-10.2 [facility] Comment on above: Order Comment: Speci men Type: BLOOD SPECIMENOrdering Facility: [facility] Address: [address] [place] [address] Performed By: #### 2 4321-2 ####TERAN LABORATORYCLIA [id number] [place] [address] [place] Chloride [Moles/Vol] 103 mmol/L Normal 98-107 [facility] Comment on above: Order Comment: Speci men Type: BLOOD SPECIMENOrdering Facility: [facility] Address: [address] [place] [address] Performed By: #### 2 4321-2 ####TERAN LABORATORYCLIA [id number] [place] [id number] [place] CO2 [Moles/Vol] 24 mmol/L Normal 22-30 [facility] Comment on above: Order Comment: Speci men Type: BLOOD SPECIMENOrdering Facility: [facility] Address: [address] [place] [address] Performed By: #### 2 4321-2 ####TERAN LABORATORYCLIA [id number] [place] [address] [place] Creatinine [Mass/Vol] 0.86 mg/dL Normal 0.58-0.96 [facility] Comment on above: Order Comment: Speci men Type: BLOOD SPECIMENOrdering Facility: [facility] Address: [address] [place] [address] Performed By: #### 2 4321-2 ####TERAN LABORATORYCLIA [id number] [address] Creatinine and Glomerular filtration rate.predicted panel (S/P/Bld) 73 mL/min/1.73m??? Normal >=60 [facility] Comment on above: Order Comment: Speci men Type: BLOOD SPECIMENOrdering Facility: [facility] Address: [address] [place] [address] Result Comment: Reshma mated Glomerular Filtration Rate (eGFR) is calculated using the 2020 CKD-EPI creatinine equation. This equation utilizes serum creatinine, sex, and age as parameters. The creatinine assay has traceable calibration to isotope dilution-mass spectrometry. Refer to KDIGO guidelines for clinical interpretation. In patients with unstable renal function, e.g. those with acute kidney injury, the eGFR may not accurately reflect actual GFR. Performed By: #### 2 4321-2 ####TERAN LABORATORYCLIA [id number] [place] [address] [place] Glucose [Mass/Vol] 160 mg/dL High 74-99 [facility] Comment on above: Order Comment: Gia gramajo Type: BLOOD SPECIMENOrdering Facility: [facility] Address: [address] [place] [address] Result Comment: The [place] Diabetes Association (ADA) provides guidance for cutoff values for fasting glucose and random glucose. The ADA defines fasting as no caloric intake for at least 8 hours. Fasting plasma glucose results between 100 to 125 mg/dL indicate increased risk for diabetes (prediabetes). Fasting plasma glucose results greater than or equal to 126 mg/dL meet the criteria for diagnosis of diabetes. In the absence of unequivocal hyperglycemia, results should be confirmed by repeat testing. In a patient with classic symptoms of hyperglycemia or hyperglycemic crisis, random plasma glucose results greater than or equal to 200 mg/dL meet the criteria for diagnosis of diabetes. Reference: Standards of Medical Care in Diabetes 2016, [place] Diabetes Association. Diabetes Care. 2016.39(Suppl 1). Performed By: #### 2 4321-2 ####TERAN LABORATORYCLIA [id number] [place] [address] [place] Potassium [Moles/Vol] 4.7 mmol/L Normal 3.7-5.1 [facility] Comment on above: Order Comment: Gia gramajo Type: BLOOD SPECIMENOrdering Facility: [facility] Address: [address] [place] [address] Performed By: #### 2 4321-2 ####TERAN LABORATORYCLIA [id number] [place] [id number] [place] Sodium [Moles/Vol] 136 mmol/L Normal 136-144 [facility] Comment on above: Order Comment: Gia gramajo Type: BLOOD SPECIMENOrdering Facility: [facility] Address: [address] [place] [address] Performed By: #### 2 4321-2 ####TERAN LABORATORYCLIA [id number] [address] [place] Urea nitrogen [Mass/Vol] 14 mg/dL Normal - [facility] Comment on above: Order Comment: Speci men Type: BLOOD SPECIMENOrdering Facility: [facility] Address: [address] [place] [address] Performed By: #### 2 4321-2 ####[facility] LABORATORYCLIA [id number] [place] [id number] [facility] CASE MANAGEMon 02-03-2024 CASE MANAGEM HNO ID: [id number] Author: CATRACHITA COTE RN Service: ? Author Type: Registered Nurse Type: Care Mgt Progress Note Filed: 02/03/2024 12:48 Note Text: CARE MANAGEMENT DISCHARGE NOTE SERVICE DATE: February 03, 2024 SERVICE TIME: 12:48 PM Admission Date: 02/02/2024 LOS: 0 days Discharge Arrangement Discharge Arrangement: Home with Home Health, Home with Relative Services Arranged Medical Services: Skilled Home Health Care Type: Home Health Agency, Physical Therapy Provider Name: [facility] Caregiver Assessment Caregiver is ready, willing and able to meet the patient's needs as recommended by the inter-professional team: Yes Name of Caregiver: Transportation Arrangements Transportation Arrangements: Car- to transport Handoff Communication: Handoff to: Primary Care Physician Primary Care Physician Name/Phone: Moises Malcolm [phone] Additional Information: Discharge order written for today. [facility] will be seeing the patient for Home PT with a start of care date within 24-48 hours. Notified [facility] of the patients discharge home today. Discharge Information Row Name Admission (Current) from 02/02/2024 in [facility] Care Agency [facility] Home [facility] Start of Care -- Within 24-48 hours SIGNATURE: Catrachita Cote RN PATIENT NAME: Caden Llamas DATE: February 03, 2024 TIME: 12:48 PM CONTACT #: [phone] Normal [facility] CASE MANAGEM HNO ID: [id number] Author: CATRACHITA COTE RN Service: ? Author Type: Registered Nurse Type: Care Mgt Progress Note Filed: 02/03/2024 11:39 Note Text: CARE MANAGEMENT PROGRESS NOTE SERVICE DATE: 02/03/2024 SERVICE TIME: 11:39 AM LOS: 0 days Needs Prior to Discharge: OT/PT Evaluation [facility] able to accept. department will continue to follow for DC needs. SIGNATURE: Catrachita Cote RN PATIENT NAME: Caden Llamas DATE: February 03, 2024 TIME: 11:39 AM PAGER/CONTACT #: [phone] [facility] [address] [facility] HNO ID: [id number] Author: CATRACHITA COTE RN Service: ? Author Type: Registered Nurse Type: Care Mgt Initial Assessment Filed: 02/03/2024 08:32 Note Text: CARE MANAGEMENT: ASSESSMENT AND DISCHARGE PLAN SERVICE DATE: February 03, 2024 SERVICE TIME: 8:31 AM PCP: Moises Malcolm APRN.HUMAN MACHINE INTERFACE ENGINEER Primary Contact: Extended Emergency Contact Information Primary Emergency Contact: Luis Llamas Address: [address] [place] [address] Mobile Relation: Spouse Secondary Emergency Contact: Jeffry Perez Relation: Friend Admission Status: Extended Recovery Insurance Provider: [employer] PPO Discharge Planning requested by: Per Department Practice Potential Transition Plans Home OT/PT Advance Directives Current Advance Directive: None Horse Breaker Attempted to Assist with AD Completion: Yes Action: Education Provided Current Living Arrangements and Support Lives with: Spouse/significant other Type of Residence: Private Residence (House) Does the patient have to climb stairs at home?: stairs outside the home;Yes;stairs within the home Support: Spouse/significant other How do you manage to accomplish the following: Independent: Ambulation;Bathe/Shower;D ress;Meals/Meal Prep;Going to the bathroom;Medication Management;Transportation to appointments/community Current Services/Equipment Current Post-Acute Service(s): DME Current DME Type: Cane Discharge Planning Patient Goal(s): Be able to go home Rum[place] of Choice Explained: Rumford of Choice Given: Yes Level of Care Discussed: Home Care Are you interested in bedside delivery of your medications? Yes Discharge Planning Participant(s): Patient Patient/Family Comments: Caregiver Assessment: Caregiver is ready, willing and able to meet the patient's needs as recommended by the inter-professional team: Yes Name of Caregiver: Transport at Discharge: Transportation Arrangements: Car Needs Prior to Discharge: Needs Prior to Discharge: To Be Determined;OT/PT Evaluation Post-Acute Discharge Plan: Review of the chart and met with the patient. The patient lives with her in a 2 story home with her bedroom on the 2nd floor. PT- SNF with progression to Home PT. Discussed PT recommendations with the patient. The patient stated she plans on discharging home with Home PT. Referral to [facility]. department will continue to follow for DC needs. SIGNATURE: Catrachita Cote RN PATIENT NAME: Caden Llamas DATE: February 03, 2024 TIME: 8:31 AM CONTACT #: [phone] Normal [facility] CBC panel Auto (Bld)on 02-02 Erythrocyte distribution width (RBC) [Ratio] 14.4 % Normal 11.5-15.0 [facility] Comment on above: Order Comment: Speci rox Type: BLOOD SPECIMENOrdering Facility: [facility] Address: [address] [place] [address] Performed By: #### 5 8410-2 ####[facility] LABORATORYCLIA [id number] [place] [address] [place] Hematocrit (Bld) [Volume fraction] 31.4 % Low 36.0-46.0 [facility] Comment on above: Order Comment: Speci rox Type: BLOOD SPECIMENOrdering Facility: [facility] Address: [address] [place] [address] Performed By: #### 5 8410-2 ####[facility] LABORATORYCLIA [id number] [place] [address] [place] Hemoglobin (Bld) [Mass/Vol] 9.6 g/dL Low 11.5-15.5 [facility] Comment on above: Order Comment: Speci rox Type: BLOOD SPECIMENOrdering Facility: [facility] Address: [address] [place] [address] Performed By: #### 5 8410-2 ####TERAN LABORATORYCLIA [id number] [address] MCH (RBC) [Entitic mass] 25.7 pg Low 26.0-34.0 [facility] Comment on above: Order Comment: Speci men Type: BLOOD SPECIMENOrdering Facility: [facility] Address: [address] [place] [address] Performed By: #### 5 8410-2 ####TERAN LABORATORYCLIA [id number] [address] MCHC (RBC) [Mass/Vol] 30.6 g/dL Normal 30.5-36.0 [facility] Comment on above: Order Comment: Speci men Type: BLOOD SPECIMENOrdering Facility: [facility] Address: [address] [place] [address] Performed By: #### 5 8410-2 ####TERAN LABORATORYCLIA [id number] [address] MCV (RBC) [Entitic vol] 84.0 fL Normal 80.0-100.0 [facility] Comment on above: Order Comment: Speci men Type: BLOOD SPECIMENOrdering Facility: [facility] Address: [address] [place] [address] Performed By: #### 5 8410-2 ####TERAN LABORATORYCLIA [id number] [address] Nucleated RBC (Bld) [#/Vol] 10*3/uL Normal <0.01 [facility] Comment on above: Order Comment: Speci men Type: BLOOD SPECIMENOrdering Facility: [facility] Address: [address] [place] [address] Performed By: #### 5 8410-2 ####TERAN LABORATORYCLIA [id number] [address] Platelet mean volume (Bld) [Entitic vol] 10.5 fL Normal 9.0-12.7 [facility] Comment on above: Order Comment: Speci men Type: BLOOD SPECIMENOrdering Facility: [facility] Address: [address] [place], [place] [address] [id number] Performed By: #### 5 8410-2 ####FL[facility] LABORATORYCLIA [id number] [place] [id number] [facility] Platelets (Bld) [#/Vol] 261 10*3/uL Normal 150-400 [facility] Comment on above: Order Comment: Speci men Type: BLOOD SPECIMENOrdering Facility: [facility] Address: [address] [place] [address] Performed By: #### 5 8410-2 ####[facility] LABORATORYCLIA [id number] [place] [address] [place] RBC (Bld) [#/Vol] 3.74 10*6/uL Low 3.90-5.20 [facility] Comment on above: Order Comment: Speci men Type: BLOOD SPECIMENOrdering Facility: [facility] Address: [address] [place] [address] Performed By: #### 5 8410-2 ####FL[facility] LABORATORYCLIA [id number] [place] [id number] [facility] WBC (Bld) [#/Vol] 11.60 10*3/uL High 3.70-11.00 [facility] Comment on above: Order Comment: Speci men Type: BLOOD SPECIMENOrdering Facility: [facility] Address: [address] [place] [id number] Performed By: #### 5 8410-2 ####[facility] LABORATORYCLIA [id number] [place] [id number] [facility] CNCOon 02-03-2024 CNCO Letter Text Normal [facility] CNDSon 02-03-2024 CN HNO ID: [id number] Author: MAKAYLA BRADLEY MD Service: Orthopaedic Surgery Author Type: Physician Kitchen Clerk Type: Discharge Summary Filed: 02/03/2024 16:29 Note Text: ----- Attestation signed by Makayla Bradley MD at 02/03/2024 4:29 PM Agree with above ----- DISCHARGE SUMMARY PATIENT NAME: Caden Llamas ADMISSION DATE: 02/02/2024 DISCHARGE DATE: 02/03/2024 PATIENT DISCHARGE SUMMARY C O N F I D E N T I A L I N F O R M A T I O N The following is a brief overview of your hospitalization. Some of the information contained on this summary may be confidential. This information should be kept in your records and should be shared with your regular doctor. These instructions explain what you or your rn critical care need to do to continue your care at home or at another healthcare facility Please go over these instructions with your nurse and rn critical care. If you are not sure about something, please ask. ----- --------- Highest Readmission Risk Score: 13 The 30 day readmissions risk score is derived from an internally validated risk model which evaluates patient level characteristics, utilization history, medication orders and lab results up until the day of discharge. Patients with a score of 40 or above are considered highest risk for readmission. Specific patient level drivers will be listed at the bottom of the summary. The 30 day readmissions risk score is derived from an internally validated risk model which evaluates patient level characteristics, utilization history, medication orders and lab results up until the day of discharge. Patients with a score of 40 or above are considered highest risk for readmission. Where I Will be Going after Discharge: Home with Home Health My Condition at Discharge: Stable PRINCIPAL DIAGNOSIS: (Reason after study for this admission): Procedure(s): ROBOTIC ASSISTED TOTAL KNEE ARTHROPLASTY OTHER DIAGNOSES: Patient Active Hospital Problem List: Obesity, Class III, BMI >= 40 (02/02/2024) S/P total knee arthroplasty, left (02/03/2024) OPERATIONS PERFORMED: Procedure(s): ROBOTIC ASSISTED TOTAL KNEE ARTHROPLASTY My Doctors and Medical Team: My Main Hospital Doctor: Makayla Casillas MD PHYSICAL EXAM: See daily progress note Vitals: BP 182/93 Pulse 68 Temp 36.9 ?C (98.4 ?F) (Oral) Resp 16 Ht 157.5 cm (5' 2) Wt 101.1 kg (222 lb 14.2 oz) SpO2 100% BMI 40.77 kg/m? SUMMARY OF WHAT HAPPENED WHILE PATIENT WAS IN THE HOSPITAL: The patient was followed by Dr. Bradley in clinic for left knee osteoarthritis. It was determined the patient would benefit from left total knee arthroplasty. The procedure, its risks, benefits, and potential complications were discussed in detail prior to surgery. The patient conveyed understanding of all topics and consented to surgery. The patient was admitted to the hospital. Underwent an elective left total knee arthroplasty on 02/02/[address] Bradley. The patient tolerated the procedure well and was returned to the Post Anesthesia Care Unit in stable condition. Vital signs per PACU protocol. VTE risk assessment performed. O2 therapy monitored by Respiratory Therapy to include incentive spirometry, ADL, wound and support per physician order set postop protocol. PT and OT to evaluate and treat. IV antibiotics, antiemetics, aspirin for DVT prophylaxis and pain medication were given. The patient progressed with physical therapy. Lab values and vital signs were monitored and remained stable. The incision remained clean, dry and intact. Thigh and calf are not swollen. No signs of DVT or infection. The patient progressed with physical therapy towards goal of safety and independence. Patient was determined safe for discharge to home with home health care on 02/03/2024. TREATMENT / WOUND CARE: If you have any concerns about your wound, please contact the office. Keep wound and incision area clean and dry. You may remove your dressing on POD #7-10 (7 to 10 days after surgery). If it remains drainage-free, you may leave the dressing off, keeping the wound open to air. If there is any drainage please contact the office You may not submerge the wound under standing water for 6 weeks time after surgery (i.e. no baths, no hot tubs, no swimming pools). Do not rub the wound, but rather pat dry. If you have non-absorbable sutures in place, these will be taken out on your 1st follow-up appointment. Observe the wound for signs of infection, including increased redness, swelling, or persistent drainage around the incision site. It is normal for your wound to be warmer immediately after surgery (even up to 4-6 weeks after surgery). If (more content not included)... Normal [facility] 02-03-2024 [facility] Telephone ([facility]) ----- CADEN LLAMAS ([id number]) 1955 F Date Time Provider Department 02/03/24 ISABELLA MCLEOD During your visit today, we recorded the following information about you: Isabella Mcleod PSS 02/03/2024 2:58 PM Signed Date/Time: 02/03/2024 2:52 PM Spoke with jeffry/FRIEND @ phone #: [phone] - Preferred # for contact: [phone] Have you received help from a home care company in the last 60 days? NO Are you agreeable to [facility] services? YES What address will we be seeing you at? [facility] [address] [facility] [address] Do you have any upcoming appointments or things we need to schedule around? NO Do you have a teachable CG or can you manage your care independently? YES Allergies As of Date: 02/03/2024 Noted Allergy Reaction CATS 02/20/2012 7 - Swelling LATEX 02/20/2012 2 - Rash LISINOPRIL 10/27/2018 7 - Swelling Comments: Tongue swells up Date Reviewed: 02/03/2024 Reviewed by: Arleen Hernandez RN - Fully Assessed Reason for Visit: Home Care [4073] Cmt: CONFIRMATION CALL Prescriptions as of 02/03/2024 - acetaminophen (TYLENOL) 500 mg tablet Take 2 tablets by mouth every 8 hours as needed for pain. - ascorbic acid, vitamin C, (VITAMIN C) 500 mg tablet Take 1 tablet by mouth two times a day with meals for 27 doses. - aspirin, enteric coated (ASPIRIN, ENTERIC COATED) 81 mg EC tablet Take 1 tablet by mouth two times a day for 28 days. - docusate sodium (COLACE) 100 mg capsule Take 1 capsule by mouth two times a day as needed for constipation. - oxyCODONE IR (ROXICODONE) 5 mg immediate release tablet Take 1-2 tablets by mouth every 6 hours as needed for pain for up to 7 days. - polyethylene glycol 3350 (MIRALAX) 17 gram/dose powder Take 17 g by mouth once daily as needed for constipation for up to 10 days. Dissolve dose in 4 - 8 ounces of liquid and take as directed. - omeprazole (PRILOSEC) 40 mg capsule Take 1 capsule by mouth once daily. - gabapentin (NEURONTIN) 800 mg tablet Take 1 tablet by mouth three times a day for 180 days. - amLODIPine (NORVASC) 5 mg tablet Take 1 tablet by mouth once daily. - carvedilol (COREG) 12.5 mg tablet 1 tablet two times a day with meals. - traZODone (DESYREL) 50 mg tablet Take 1 tablet by mouth daily at bedtime. - amLODIPine (NORVASC) 2.5 mg tablet take 1 tablet by mouth every day - ergocalciferol 50,000 unit capsule (VITAMIN D2, DRISDOL) Take 1 capsule by mouth one time a week. - meclizine (ANTIVERT) 25 mg tab Take 25 mg by mouth. - albuterol HFA (PROAIR HFA) 90 mcg/actuation inhaler Inhale 1 Puff as instructed every 4 hours as needed. - ferrous sulfate 325 mg (65 mg iron) tablet Take 325 mg by mouth daily with breakfast. - CPAP Facility-Administered Medications as of 02/03/2024 - oxyCODONE IR 5-10 mg tab(s) (ROXICODONE) - scopolamine - REMOVE PATCH - carvedilol 12.5 mg tab(s) (COREG) - gabapentin 800 mg cap(s) (NEURONTIN) - meclizine 25 mg tab(s) (ANTIVERT) - albuterol 2.5 mg /3 mL (0.083 %) 2.5 mg (PROVENTIL) - amLODIPine 5 mg tab(s) (NORVASC) - ferrous sulfate 325 mg tab(s) - pantoprazole DR 40 mg tab(s) (PROTONIX) - traZODone 50 mg tab(s) (DESYREL) - acetaminophen 1,000 mg tab(s) (TYLENOL) - ondansetron orally disintegrating 4 mg tab(s) (ZOFRAN ODT) - ondansetron (PF) 4 mg injection (ZOFRAN) - magnesium hydroxide 400 mg/5 mL 30 mL (MOM) - bisacodyl EC 10 mg tab(s) (DULCOLAX) - aluminum-magnesium hydroxide-simethicone 200-200-20 mg/5 mL 30 mL - ascorbic acid (vitamin C) 500 mg tab(s) (VITAMIN C) - docusate sodium 100 mg cap(s) (COLACE) - senna 17.2 mg tab(s) (SENOKOT) - aspirin, enteric coated 81 mg tab(s) - lactated ringers iv infusion - HYDROmorphone 0.4 mg injection (DILAUDID) - keTORolac 15 mg injection (Toradol) Problem List As Of Date 02/03/2024 Noted Resolved Climacteric [N95.1] 03/23/2012 Arthritis of knee, left [M17.12] 10/21/2012 10/20/2018 Right shoulder injury [S49.91XA] 10/21/2012 10/20/2018 Hypertension [I10] 10/21/2012 Type II or unspecified type diabetes mellitus w*10/21/2012 10/20/2018 H/O Pulmonary embolism (HCC) [I26.99] 12/13/2012 04/16/2023 Hyperlipidemia with target low density lipoprot*02/25/2013 Arthritis of right knee [M17.11] 05/21/2013 Rotator cuff disorder [M67.919] 05/21/2013 10/20/2018 Urinary incontinence [R32] 10/04/2015 Lower urinary tract symptoms (LUTS) [R39.9] 10/04/2015 H/O Brain Aneurysm [I67.1] 10/20/2018 H/O Stroke (HCC) [I63.9] 10/20/2018 Asthma [J45.909] 10/20/2018 Diabetes mellitus type 2, uncomplicated (HCC) [*10/20/2018 Peripheral neuropathy [G62.9] 10/20/2018 WEISS (dyspnea on exertion) [R06.09] 10/20/2018 Chest pain of uncertain etiology [R07.9] 10/20/2018 Stage 2 chronic kidney disease [N18.2] 10/20/2018 Anemia [D64.9] 10/20/2018 Anxiety [F41.9] 10/20/2018 Morbidly obese (HCC) [E66.01] 10/20/2018 RUTH (obstructive sleep apnea (more content not included)... Normal [facility] CONSULT PROGon 02-03-2024 CONSULT PROG HNO ID: [id number] Author: CHANA BAL MD Service: General Internal Medicine Author Type: Physician Type: Consult Progress Note Filed: 02/03/2024 13:35 Note Text: INTERNAL MEDICINE CONSULT PROGRESS NOTE Subjective INTERVAL HPI: Feels better Pain controlled with meds No fever Tolerating PO MEDICATIONS: Reviewed Current Facility-Administered Medications Medication Dose Route Frequency scopolamine - VERIFY patch OTHER q 8 H scopolamine - REMOVE PATCH OTHER ONCE carvedilol 12.5 mg tab(s) (COREG) 12.5 mg ORAL BID w MEALS gabapentin 800 mg cap(s) (NEURONTIN) 800 mg ORAL TID meclizine 25 mg tab(s) (ANTIVERT) 25 mg ORAL BID PRN albuterol 2.5 mg /3 mL (0.083 %) 2.5 mg (PROVENTIL) 3 mL INHALATION q 4 H PRN amLODIPine 5 mg tab(s) (NORVASC) 5 mg ORAL DAILY ferrous sulfate 325 mg tab(s) 325 mg ORAL DAILY WITH BREAKFAST pantoprazole DR 40 mg tab(s) (PROTONIX) 40 mg ORAL DAILY traZODone 50 mg tab(s) (DESYREL) 50 mg ORAL AT BEDTIME acetaminophen 1,000 mg tab(s) (TYLENOL) 1,000 mg ORAL q 8 H ondansetron orally disintegrating 4 mg tab(s) (ZOFRAN ODT) 4 mg ORAL q 6 H PRN Or ondansetron (PF) 4 mg injection (ZOFRAN) 4 mg INTRAVENOUS q 6 H PRN magnesium hydroxide 400 mg/5 mL 30 mL (MOM) 30 mL ORAL DAILY PRN [START ON 02/04/2024] bisacodyl EC 10 mg tab(s) (DULCOLAX) 10 mg ORAL DAILY aluminum-magnesium hydroxide-simethicone 200-200-20 mg/5 mL 30 mL 30 mL ORAL q 2 H PRN ascorbic acid (vitamin C) 500 mg tab(s) (VITAMIN C) 500 mg ORAL BID w MEALS docusate sodium 100 mg cap(s) (COLACE) 100 mg ORAL BID senna 17.2 mg tab(s) (SENOKOT) 17.2 mg ORAL AT BEDTIME aspirin, enteric coated 81 mg tab(s) 81 mg ORAL BID lactated ringers iv infusion 100 mL/hr INTRAVENOUS CONTINUOUS HYDROmorphone 0.4 mg injection (DILAUDID) 0.4 mg INTRAVENOUS q 3 H PRN keTORolac 15 mg injection (Toradol) 15 mg INTRAVENOUS q 6 H PRN oxyCODONE IR 5-10 mg tab(s) (ROXICODONE) 5-10 mg ORAL q 3 H PRN Objective PHYSICAL EXAM: BP 182/93 Pulse 68 Temp (Src) 98.4 (Oral) Resp 16 Ht 5' 2 (1.58m) Wt 222 lb 14.2 oz (101.1kg) SpO2 100% BMI 40.76 kg/(m2). O2 Therapy: Room Air GENERAL: Alert, no distress, cooperative LUNGS: Lungs clear to auscultation, Good diaphragmatic excursion CARDIAC: Normal S1 and S2; no rubs, murmurs, or gallops ABDOMEN: Abdomen soft, non-tender, BS normal, No masses or organomegaly EXTREMITIES: Extremities normal, no deformities, edema, clubbing or skin discoloration. Good capillary refill., No ulcers WOUND: Clean, dry and intact DATA: Diagnostic tests reviewed for today's visit: Most recent labs Most recent imaging Impression/Recommendation s Active Problems: OA knee s/p L TKA Parox Atrial fibrillation Morbidly obese Chronic anemia H/O Stroke H/O Brain Aneurysm Peripheral neuropathy Hyperlipidemia Hypertension Asthma RUTH (obstructive sleep apnea) Stage 2 chronic kidney disease Urinary incontinence Diabetes mellitus type 2, Anxiety PLAN: Resume home meds Monitor clinically Pain control PT/OT DVT prophylaxis SIGNATURE: Chana Bal MD PATIENT NAME: Caden Llamas DATE: February 03, 2024 TIME: 1:33 PM etx [id number] [facility] THERAPY NTon 02-03-2024 THERAPY NT HNO ID: [id number] Author: DELFIN BARRERA PTA Service: Physical Therapy Author Type: Length Control Tester Type: Therapy (PT/OT/Speech/Resp) Filed: 02/03/2024 12:47 Note Text: ----- Attestation signed by Gris Ly, PT at 02/03/2024 4:40 PM I reviewed and agree with the documentation corresponding to this therapy visit. SIGNATURE: Gris Ly PT DATE: February 03, 2024 TIME: 4:40 PM ----- Physical Therapy Treatment Summary SERVICE DATE: 02/03/2024 SERVICE TIME: 1125 to 1230 ROOM: [id number] PT 6 Clicks Score: 18 Total Joint Replacement Discharge Readiness: Cleared from Physical Therapy DISCHARGE RECOMMENDATIONS Home PT Recommended Discharge Disposition Comments: Patient would benefit from continued PT to address current strength, balance and safety deficits. Recommended Discharge Disposition Due to: Functional deficits requiring ongoing therapy service prior to discharge home., Balance deficits, Functional status decline Recommended Discharge Equipment: Wheeled Walker, Crutch(es) (possibly to be issued) ASSESSMENT Response to Therapy Interventions: On-Track to Achieve Discharge Goals, Good Participation in Activities, Improved Tolerance for Activity, Pain Patient requires no more than CGA with all OOB mobility. Patient successfully able to progress ambulation distance and initiate stair training with no adverse effects. Poor insights into deficits, occasional cues for safety. DC recommendation switched from SNF to Home PT secondary to improved activity tolerance and decreased level of assist required. PRECAUTIONS Fall Risk, Lines/Tubes/Drains, Total Knee Replacement, Weight Bearing Restrictions Left Lower Extremity Weight Bearing Status: WBAT CURRENT HOSPITAL COURSE post L TKA Relevant Past Medical History: R TKA, PE (2012), brain aneurysm (+surgery, 2012). cardiac cath (2018), cholescystomy, HLD, RUTH, peripheral neuropathy, R shoulder injury/surgery (2013), RUTH, HTN, DM-type 2, anxiety, morbid obesity, CVA. HOME LIVING Patient Lives With: Spouse Assistance Available: Part-Time (spouse works 9pm-6am; home during the day) Entry To Home: Stairs, Without Rail Number Of Stairs Into Home: 2 Number Of Stairs To Bed/Bath: 5 Stairs to Bed/Bath with: Unilateral Rail Tub/Shower Type: walk in and tub shower Laundry: spouse to complete Equipment Owned: Cane PRIOR FUNCTIONAL LEVEL Within Functional Limits Pt reports independence with ADLs/IADLs, no use of a device, + driving. SUBJECTIVE Patient pleasant and cooperative. Ok per RN. THERAPY DIAGNOSIS Difficulty walking-musculoskeletal TREATMENT INTERVENTIONS Therapeutic Activity (55977), Gait Training (53423) Timed Code Treatment (minutes): 55 Skilled Treatment Time (minutes): 55 Therapeutic Activity (02509) Treatment Minutes: 15 $ Therapeutic Activity (46933) Billed Units: 1 unit Gait Training (76309) Treatment Minutes: 40 $ Gait Training (13616) Billed Units: 2 units TRAINING AND EDUCATION PROVIDED Advanced Balance Activities, Anatomy and Impact on Deficits, Assistive Device Use, Bed Mobility, Benefits of In-Hospital Mobility, Discharge Planning, Equipment, Expected Functional Level, Falls Prevention, Gait Pattern, Reduction of Deviations, Handout Issued, Home Safety, Positioning, Patient Exercise/Therapy Program Support Needs, Role of Physical Therapy, Standing Balance THERAPEUTIC SKILLS USED Activity Dosing, Assessment of Tolerance Including Vitals Response to Activity, Cues for Sequencing/Proper Technique for Activity, Cuing Verbal, Movement Facilitation, Muscle Activation Facilitation, Postural Alignment Correction FUNCTIONAL STATUS Bed Mobility Supine To Sit: Contact Guard Assistance HOB flat, slight use of rail, extended time to complete Sit to Supine: Contact Guard Assistance HOB flat, no use of rail Scooting: Minimal Assistance with use of draw pad Transfers Sit To Stand: Contact Guard Assistance x1 trial from EOB, x1 trial from chair, cues for hand placement Stand To Sit: Contact Guard Assistance Cues for safe approach, hand placement and controlled/eccentric decent Bed to Chair Gait Contact Guard Assistance Step-to gait, cues for upright posture, patient with preference for higher walker height despite education Gait Device: Wheeled Walker General Deviations/Observations: Farheen decreased, Flexed trunk posture, Step length decreased Gait Distance (feet): 70'x2 Gait Deviations Left Lower Extremity: Foot clearance decreased, Heel strike during initial stance decreased, Step length decreased Stairs Contact Guard Assistance Stairs Device: Rail Number of Stairs: 4 [id number], patient reports B handrails Curb Step: Contact Guard Assistance, Additional Information Device: Wheeled Walker (more content not included)... [facility] THERAPY NT HNO ID: [id number] Author: CANDI CORMIER OT/Berta Service: Occupational Therapy Author Type: Occupational Therapist Type: Therapy (PT/OT/Speech/Resp) Filed: 02/03/2024 09:58 Note Text: ----- Summary: OT Evaluation ----- Occupational Therapy Evaluation Summary SERVICE DATE: 02/03/2024 SERVICE TIME: 831 to 933 ROOM: [id number] OT 6 Clicks Score: 20 Total Joint Replacement Discharge Readiness: Cleared from Occupational Therapy DISCHARGE RECOMMENDATIONS Home OT Recommended Discharge Disposition Comments: to maximize safety and independence with ADLs/IADLs, functional mobility and transfers s/p L TKA Anticipated Discharge Needs: Physical Assist at Home, Supervision at Home Physical Assist at Home for: Cleaning, Laundry, Meals, Self Care, Shopping, Transportation Supervision at Home due to: (intially for optimal safety) Recommended Discharge Equipment: Shower Chair, Grab Bars-Toilet ASSESSMENT Response to Therapy Interventions: Good Participation in Activities, On-Track to Achieve Discharge Goals, Pain, Requires Additional Time to Complete Activities Pt is A+Ox3. Currently requires SBA-Min A for ADLs, mobility and transfers. Min A anticipated for donning L shoe only. Pt tolerated entire session. C/o soreness in surgical knee at start of session and throughout session however able to tolerate pain without adverse effects. Anticipate safe d/c home with Home OT and assistance from spouse for IADLs initially and self care prn. PRECAUTIONS Fall Risk, Lines/Tubes/Drains, Total Knee Replacement, Weight Bearing Restrictions Left Lower Extremity Weight Bearing Status: WBAT CURRENT HOSPITAL COURSE post L TKA Relevant Past Medical History: R TKA, PE (2012), brain aneurysm (+surgery, 2012). cardiac cath (2018), cholescystomy, HLD, RUTH, peripheral neuropathy, R shoulder injury/surgery (2013), RUTH, HTN, DM-type 2, anxiety, morbid obesity, CVA. HOME LIVING Patient Lives With: Spouse Assistance Available: Part-Time (spouse works 9pm-6am; home during the day) Entry To Home: Stairs, Without Rail Number Of Stairs Into Home: 2 Number Of Stairs To Bed/Bath: 5 Stairs to Bed/Bath with: Unilateral Rail Tub/Shower Type: walk in and tub shower Laundry: spouse to complete Equipment Owned: Cane PRIOR FUNCTIONAL LEVEL Within Functional Limits Pt reports independence with ADLs/IADLs, no use of a device, + driving. Baseline Cognition: Oriented to self, Oriented to place, Oriented to time, Oriented to situation SUBJECTIVE RN cleared to work with pt; pt agreeable COGNITION Orientation Deficits: (A+Ox3) Responsiveness: Alert, Awake THERAPY DIAGNOSIS Reduced mobility-other, Decreased activities of daily living (ADL) TREATMENT INTERVENTIONS Evaluation, Self Snf Management (64017) Timed Code Treatment (minutes): 45 Skilled Treatment Time (minutes): 60 TRAINING AND EDUCATION PROVIDED Activity Adaptation/Compensatory Strategies, Adaptive Equipment/DME, Assistive Device Use, Bed Mobility, Benefits of In-Hospital Mobility, Cognitive Skills, Command Following, Discharge Planning, Edema Management, Environmental Modification, Expected Functional Level, Functional Mobility Involving ADLs, Grooming Tasks, Energy Conservation, Home Set-up/Modifications, Lower Extremity Bathing, Lower Extremity Dressing, Pain Management, Positioning, Precautions/Restrictions, Role of Occupational Therapy, Safety/Judgment, Sitting Balance to Improve Pershing with ADLs/Self-Care, Standing Balance to Improve Pershing with ADLs/Self-Care, Toileting , Transfer - Bed to Chair, Transfer - Sit to Stand, Transfer - Toilet/Commode, Transfer - Shower, Upper Extremity Bathing, Upper Extremity Dressing Education and instruction on: -- Role of OT and POC -- Total Knee Precautions and WBAT, instructed on use of wheeled walker at all times until home PT progresses to crutches or cane. -- Hospital and home safety. Pt instructed on having areas free of clutter, removal of throw rugs and areas well lit. Pt instructed on wearing appropriate footwear in their home to reduce risk of falls. Pt instructed on securing pets in separate room or fenced in yard while ambulating in home to reduce risk of falls. Pt instructed on using call light for assistance to bathroom and for functional transfers while in hospital to reduce risk of falls. -- Bed mobility. Instructed patient in elevation of surgical LE for edema management and comfort with proper pillow placement and nothing placed directly behind surgical knee. --ADL techniques. Grooming: instructed pt on safe/proper WW management up to sink and UE support on sink top prn for increased safety and stability in standing during grooming. Bathing AND Dressing: Completion of majority of tasks from se (more content not included)... [facility] ALLIED HEALTHon 02-02-2024 ALLIED HEALTH HNO ID: [id number] Author: KATRIN PEÑA RT(R) Service: Radiology Author Type: Technologist Type: Allied Health Filed: 02/02/2024 10:37 Note Text: Radiology Service Progress Note PATIENT NAME: Caden Llamas DATE OF SERVICE: February 02, 2024 TIME: 10:37 AM PATIENT IDENTITY VERIFICATION COMPLETED USING TWO (2) IDENTIFIERS: Name and Date of confirmed by patient verbally. FALL SCREENING: Has the patient had 2 falls in the last year or 1 fall with injury or currently using an Ambulatory Assistive Device (Walker, Cane, Wheelchair, Crutches, etc.)? Inpatient: Screened on floor PATIENT GENDER DATA: Female. status: : No status: NO. PATIENT RELEVANT IMPLANT DATA REVIEWED: Not Applicable PATIENT PRESENTS WITH AN IMPLANTABLE OR ATTACHED PLASTERER FOREMAN: No RADIOLOGY DEPARTMENT: General X-ray: Exam(s) Completed: Lower Extremity X-Ray(s): Knee, AP / LAT Left PERIPHERAL IV DATA: Not applicable SIGNED BY: RT Bob(R) February 02, 2024 10:37 AM [facility] ANES POSTPROC EVALon 024 ANE POSTPROC EVAL HNO ID: [id number] Author: KARINA HEATH MD Service: Anesthesiology Author Type: Anesthesiologist Type: Anesthesia Postprocedure Evaluation Filed: 02/02/2024 13:28 Note Text: POST ANESTHESIA EVALUATION NOTE : 1955 Procedure Summary Date: 02/02/24 Room / Location: [place] [address] / [place] Anesthesia Start: 736 Anesthesia Stop: 958 Procedure: ROBOTIC ASSISTED TOTAL KNEE ARTHROPLASTY (Left: Knee) Diagnosis: Primary osteoarthritis of left knee (Primary osteoarthritis of left knee [M17.12]) Surgeons: Makayla Bradley MD Responsible Provider: Karina Heath MD Anesthesia Type: spinal, regional ASA Status: 3 Anesthesia Type: spinal, regional Last Vitals Vitals Value Taken Time BP 138/89 02/02/24 1114 Temp 36.3 ?C (97.4 ?F) 02/02/24 1114 Pulse 82 02/02/24 1114 Resp 20 02/02/24 1114 SpO2 97 % 02/02/24 1114 Post Anesthesia Patient Status Patient Evaluation: PACU. PACU/ICU Patient Condition: stable. Anticipated Disposition: inpatient floor planned admission. Neurological Status: aware and responsive. Pulmonary Status: breathing comfortably on room air Airway Control: returned to baseline unsupported. Cardiovascular Status: stable. Pain Management: clinically adequate - multimodal analgesia pain management approach Postoperative Hydration: acceptable. Intraoperative Events: no significant anesthesia events Post Operative Nausea/Vomiting Status: no significant post operative nausea or vomiting Recommendation: continue current plan of care and further care per PACU/ICU/floor team. Anesthesia Observations No Documentation SIGNATURE: Karina Heath MD PATIENT NAME: Caden Llamas DATE: February 02, 2024 TIME: 1:28 PM CSN: [id number] [facility] ANES PRE-OPon 02-02-2024 ANES PRE-OP HNO ID: [id number] Author: KARINA HEATH MD Service: Anesthesiology Author Type: Anesthesiologist Type: Anesthesia Preprocedure Evaluation Filed: 02/02/2024 06:45 Note Text: ANESTHESIOLOGY DAY OF SURGERY NOTE : 1955 Procedure Information Date/Time: 02/02/24729 Procedure: ROBOTIC ASSISTED TOTAL KNEE ARTHROPLASTY (Left: Knee) Location: [place] [address] / [place] Surgeons: Makayla Bradley MD Estimated body mass index is 40.6 kg/m? as calculated from the following: Height as of this encounter: 157.5 cm (5' 2). Weight as of this encounter: 100.7 kg (222 lb). Most recent hematocrit and potassium results: Hematocrit 37.5 01/27/2024 Potassium 3.8 01/27/2024 Relevant Problems No relevant active problems I - PHYSICAL EVALUATION AIRWAY Patient intubated: No. Tracheostomy tube not present Mallampati: II. TM distance: >3 FB. Neck ROM: full ROM without neurological symptoms. Mouth opening: adequate. Short neck: no. Thick neck: no DENTAL Normal dental observations. Dentures, upper: complete. Dentures, lower: complete. Additional exam findings: yes. CARDIOVASCULAR Rhythm: regular PULMONARY Breath sounds clear to auscultation. II - ANESTHESIA PLAN ASA Score: 3 Anesthetic Plan: spinal and regional The patient is not a current smoker. NPO Status: adequate Anesthetic plan additional comments: (pre op adductor canal block) + MAC Sedation. Beta Anjelica Monitoring Plan Monitoring plan: Standard ASA. Post Procedure Analgesic Plan Postoperative analgesic plan: parenteral or oral opioids, multimodal analgesia and peripheral nerve block. Informed Consent Anesthetic risks, benefits, alternatives, personnel and consent discussed: yes. Patient / Responsible [employer] Party agrees to proceed: yes Patient / Surrogate agrees to blood products: yes DNR status not reviewed with patient and/or family prior to surgery. Significant changes in the patient condition since the History and Physical, not otherwise documented in primary service progress note: no. Potential Anesthesia issues that may suggest increased risk of complications or contraindication to planned procedure: none. Vitals Value Taken Time BP 160/86 02/02/24 0629 Pulse 74 02/02/24 0643 Resp 30 02/02/24 0643 Temp 37.1 ?C (98.8 ?F) 02/02/24 0627 SpO2 99 % 02/02/24 0643 Vitals shown include unfiled device data. Facility-Administered Medications as of 02/02/2024 Medication Dose Route Frequency - acetaminophen 1,000 mg tab(s) (TYLENOL) 1,000 mg ORAL Pre-Op Once - celecoxib 200 mg cap(s) (CeleBREX) 200 mg ORAL Pre-Op Once - scopolamine 1 mg over 3 days 1 Patch (TRANSDERM-SCOP) 1 Patch TRANSDERMAL Pre-Op Once - midazolam (PF) 2 mg injection (VERSED) 2 mg INTRAVENOUS ONCE - lidocaine (PF) 10 mg/mL (1 %) 1-2 mg injection (XYLOCAINE) 0.1-0.2 mL INTRADERMAL PRN - lactated ringers iv infusion 5-30 mL/hr INTRAVENOUS CONTINUOUS - NaCl 0.9% iv flush bag 20 mL INTRAVENOUS PRN - ceFAZolin iv piggyback 2 g in D5W (iso-osmotic) 100 mL (ANCEF) 2 g INTRAVENOUS Pre-Op Once - tranexamic acid (CYKLOKAPRON) in NaCl 0.7% 1,000 mg 100 mL 1,000 mg INTRAVENOUS Pre-Op Once - tranexamic acid (CYKLOKAPRON) in NaCl 0.7% 1,000 mg 100 mL 1,000 mg INTRAVENOUS ONCE - ropivacaine 2.46 mg/mL-EPINEPHrine 0.005 mg/mL-cloNIDine 0.0008 mg/mL-ketorolac 0.3 mg/mL 50 mL injection (R.E.C.K.) 50 mL periarticular ONCE Outpatient Medications as of 02/02/2024 Medication Sig - omeprazole (PRILOSEC) 40 mg capsule Take 1 capsule by mouth once daily. - gabapentin (NEURONTIN) 800 mg tablet Take 1 tablet by mouth three times a day for 180 days. - amLODIPine (NORVASC) 5 mg tablet Take 1 tablet by mouth once daily. - carvedilol (COREG) 12.5 mg tablet 1 tablet two times a day with meals. - traZODone (DESYREL) 50 mg tablet Take 1 tablet by mouth daily at bedtime. - ergocalciferol 50,000 unit capsule (VITAMIN D2, DRISDOL) Take 1 capsule by mouth one time a week. - meclizine (ANTIVERT) 25 mg tab Take 25 mg by mouth. - albuterol HFA (PROAIR HFA) 90 mcg/actuation inhaler Inhale 1 Puff as instructed every 4 hours as needed. - ferrous sulfate 325 mg (65 mg iron) tablet Take 325 mg by mouth daily with breakfast. - CPAP - [] cyclobenzaprine (FLEXERIL) 10 mg tablet Take 1 tablet by mouth two times a day as needed for up to 7 days. - amLODIPine (NORVASC) 2.5 mg tablet take 1 tablet by mouth every day I have interviewed and examined the patient. I have reviewed the medical record and/or the pre-anesthesia evaluation, pertinent labs, and test results. This contains updated information obtained within 48 hours of Surgery/Procedure. SIGNATURE: Karina Heath MD PATIENT NAME: Caden Llamas DATE: February 02, 2024 TIME: 6:45 AM CSN: [id number] [facility] BRIEF OP NOTon 02-02-2024 BRIEF OP NOT HNO ID: [id number] Author: MAKAYLA BRADLEY MD Service: Orthopaedic Surgery Author Type: Physician Type: Brief Op Note Filed: 02/02/2024 09:35 Note Text: TOTAL KNEE ARTHROPLASTY BRIEF OPERATIVE / PROCEDURE NOTE LOG ID: [id number] Surgery/Procedure Date: 02/02/2024 Incision/Procedure Start Time: 8:16 AM Incision Close/Procedure End Time: Approximately 0945 Surgeon(s)/Proceduralist( s) and Kitchen Clerk(s): Surgeon(s) and Role: * Makayla Bradley MD - Primary Physician Kitchen Clerk: Melanie Magana PA-C; Joycelyn Reddy PA-C Registered Nurse Mechanical Maintenance Worker: Bell Gallegos RN Procedure(s): Procedure(s) (LRB): ROBOTIC ASSISTED TOTAL KNEE ARTHROPLASTY (Left) Anesthesia: Spinal Peripheral Block Type: Saphenous/Adductor and RUBÉN Approach: Median parapatellar Findings: Full-thickness osteoarticular wear medial compartment and patellofemoral joint Estimated Blood Loss: 50 mls Specimens: Bone cuttings Complications: None Closure Technique: Primary Total Joint Arthroplasty (TJA) Surgical Risk Procedure: Not on file Date assessed: Not on file No data to display Implant: * No implants in log * Bearing Surface: Fixed Fixation: Cementless SSI Risk Factors: Obesity, BMI > 35 Constraint: Retaining Option for Deep [facility]/AP Constrained Other: None Pre-Op/Pre-Procedure Diagnosis: Primary osteoarthritis of left knee [M17.12] Post-Op/Post-Procedure Diagnosis: Primary osteoarthritis of left knee [M17.12] Weight Bearing Status: Weight Bearing As Tolerated Patient was accompanied to the next level of care by a licensed practitioner from the surgical team pending completion of this brief op note (or operative note) SIGNATURE: Makayla Bradley MD PATIENT NAME: Caden Llamas DATE: February 02, 2024 TIME: 9:34 AM [facility] CONSULTon 02-02-2024 CONSULT HNO ID: [id number] Author: CHANA BAL MD Service: General Internal Medicine Author Type: Physician Type: Consults Filed: 02/02/2024 13:37 Note Text: INTERNAL MEDICINE INITIAL CONSULT SERVICE DATE: 02/02/2024 SERVICE TIME: 1:31 PM Primary Care Physician: Moises Malcolm APRN.HUMAN MACHINE INTERFACE ENGINEER REASON FOR CONSULT: Medical management REQUESTING PHYSICIAN: Makayla Bradley MD Subjective CHIEF COMPLAINT: Knee pain HPI: This is a 69 year old female who presents with knee pain for an elective L TKA that was done today. The post-op course so far has been uneventful. Pain is controlled. No nausea, vomiting, fever, difficulty breathing. PAST MEDICAL HISTORY Diagnosis Date Active asthma Anxiety Arthritis of knee, left 10/21/2012 Brain aneurysm Diabetes mellitus type 2, uncomplicated (HCC) Fibroids Hyperlipidemia LDL goal < 100 02/25/2013 Hypertension Morbidly obese ([facility]) 10/20/2018 RUTH (obstructive sleep apnea) 10/20/2018 Peripheral neuropathy 10/20/2018 Pulmonary embolism (HCC) 12/13/2012 Right shoulder injury 10/21/2012 Stroke ([facility]) PAST SURGICAL HISTORY Procedure Laterality Date APPENDECTOMY ARTHRP KNE CONDYLEANDPLATU MEDIALANDLAT COMPARTMENTS Right 10/27/2018 Knee replacement, total BRAIN SURGERY HX 8-2012 brain aneurysm coiled CARDIAC CATH 2018 CHOLECYSTECTOMY Cholecystectomy SHOULDER SURGERY HX Right VAGINAL HYSTERECTOMY UTERUS 250 GM/< Hysterectomy, vaginal, Fibroids FAMILY HISTORY Problem Relation Age of Onset Cancer Mother Liver Diabetes Mother Hypertension Mother Lipids Mother Heart Father [place] Psychiatry Sister Hypertension Sister Diabetes Sister Social History Tobacco Use Smoking status: Never Smokeless tobacco: Never Tobacco comments: Smoked as a teenager Vaping Use Vaping Use: Never used Substance Use Topics Alcohol use: No Drug use: No MEDICATIONS: Reviewed mupirocin (BACTROBAN) 2 % ointment, Apply 0.5 inch with cotton swab (Q-tip) to each nostril in the morning and evening for 5 days prior to and including day of surgery., Disp: 22 g, Rfl: 0, 02/01/2024 at 0600 omeprazole (PRILOSEC) 40 mg capsule, Take 1 capsule by mouth once daily., Disp: 90 capsule, Rfl: 1, 02/01/2024 at 1600 gabapentin (NEURONTIN) 800 mg tablet, Take 1 tablet by mouth three times a day for 180 days., Disp: 270 tablet, Rfl: 1, 02/01/2024 at 0600 amLODIPine (NORVASC) 5 mg tablet, Take 1 tablet by mouth once daily., Disp: 90 tablet, Rfl: 1, 02/02/2024 at 0530 carvedilol (COREG) 12.5 mg tablet, 1 tablet two times a day with meals., Disp: , Rfl: , 02/01/2024 at 0600 traZODone (DESYREL) 50 mg tablet, Take 1 tablet by mouth daily at bedtime., Disp: 30 tablet, Rfl: 11, Past Week ergocalciferol 50,000 unit capsule (VITAMIN D2, DRISDOL), Take 1 capsule by mouth one time a week., Disp: 4 capsule, Rfl: 1, 02/01/2024 at 0600 meclizine (ANTIVERT) 25 mg tab, Take 25 mg by mouth., Disp: , Rfl: , 3 mo ago albuterol HFA (PROAIR HFA) 90 mcg/actuation inhaler, Inhale 1 Puff as instructed every 4 hours as needed., Disp: , Rfl: , 2 mo ago ferrous sulfate 325 mg (65 mg iron) tablet, Take 325 mg by mouth daily with breakfast., Disp: , Rfl: , 02/01/2024 at 0600 CPAP, , Disp: , Rfl: amLODIPine (NORVASC) 2.5 mg tablet, take 1 tablet by mouth every day, Disp: 90 tablet, Rfl: 0 Current Facility-Administered Medications Medication Dose Route Frequency scopolamine - VERIFY patch OTHER q 8 H [START ON 02/03/2024] scopolamine - REMOVE PATCH OTHER ONCE carvedilol 12.5 mg tab(s) (COREG) 12.5 mg ORAL BID w MEALS gabapentin 800 mg cap(s) (NEURONTIN) 800 mg ORAL TID meclizine 25 mg tab(s) (ANTIVERT) 25 mg ORAL BID PRN albuterol 2.5 mg /3 mL (0.083 %) 2.5 mg (PROVENTIL) 3 mL INHALATION q 4 H PRN amLODIPine 5 mg tab(s) (NORVASC) 5 mg ORAL DAILY [START ON 02/03/2024] ferrous sulfate 325 mg tab(s) 325 mg ORAL DAILY WITH BREAKFAST pantoprazole DR 40 mg tab(s) (PROTONIX) 40 mg ORAL DAILY traZODone 50 mg tab(s) (DESYREL) 50 mg ORAL AT BEDTIME acetaminophen 1,000 mg tab(s) (TYLENOL) 1,000 mg ORAL q 8 H ondansetron orally disintegrating 4 mg tab(s) (ZOFRAN ODT) 4 mg ORAL q 6 H PRN Or ondansetron (PF) 4 mg injection (ZOFRAN) 4 mg INTRAVENOUS q 6 H PRN [START ON 02/03/2024] magnesium hydroxide 400 mg/5 mL 30 mL (MOM) 30 mL ORAL DAILY PRN [START ON 02/04/2024] bisacodyl EC 10 mg tab(s) (DULCOLAX) 10 mg ORAL DAILY aluminum-magnesium hydroxide-simethicone 200-200-20 mg/5 mL 30 mL 30 mL ORAL q 2 H PRN [START ON 02/03/2024] ascorbic acid (vitamin C) 500 mg tab(s) (VITAMIN C) 500 mg ORAL BID w MEALS [START ON 02/03/2024] docusate sodium 100 mg cap(s) (COLACE) 100 mg ORAL BID senna 17.2 mg tab(s) (SENOKOT) 17.2 mg ORAL AT BEDTIME [START ON 02/03/2024] aspirin, enteric coated 81 mg tab(s) 81 mg ORAL BID lactated ringers iv infusion 100 mL/hr INTRAVENOUS CONTINUOUS ceFAZolin iv piggyback 2 g in D5W (iso-osmotic) 100 mL (ANCEF) 2 g INTRAVENOUS q 8 HR HYDROcodone 5 mg - acetam (more content not included)... Normal [facility] Hematocrit Auto (Bld) [Volum e fraction]on 02-02-2024 Hematocrit (Bld) [Volume fraction] 32.3 % Low 36.0-46.0 [facility] Comment on above: Order Comment: Specpretty gramajo Type: BLOOD SPECIMENOrdering Facility: [facility] Address: [address] [place] [address] Performed By: #### 4 544-3, 718-7 ####[facility] [id number] [place] [address] [place] [facility] [place] Hgb Bld-mCncon 02-02-2024 Hemoglobin (Bld) [Mass/Vol] 9.9 g/dL Low 11.5-15.5 [facility] Comment on above: Order Comment: Specpretty gramajo Type: BLOOD SPECIMENOrdering Facility: [facility] Address: [address] [place] [address] Performed By: #### 4 544-3, 718-7 ####[facility] [id number] [place] [address] [place] OPERATIVE NOon 02-02-2024 OPERATIVE NO HNO ID: [id number] Author: MAKAYLA BRADLEY MD Service: Orthopaedic Surgery Author Type: Physician Type: Operative Report Filed: 02/02/2024 09:36 Note Text: [facility] OPERATIVE REPORT PATIENT NAME: Caden Llamas CSN: [id number] LOG ID: [id number] Surgery Date: 02/02/2024 Surgeon(s) and Kitchen Clerk(s): Surgeon(s) and Role: * Makayla Bradley MD - Primary- surgeon * Melanie CROCKER -Toter No qualified orthopedic resident available. The PA was utilized for soft tissue retraction and to hold the limb in proper alignment to allow me to correctly implant the final arthroplasty components. BMI: Estimated body mass index is 40.6 kg/m? as calculated from the following: Height as of this encounter: 157.5 cm (5' 2). Weight as of this encounter: 100.7 kg (222 lb). Procedure(s): Procedure(s) (LRB): ROBOTIC ASSISTED TOTAL KNEE ARTHROPLASTY (Left) Anesthesia: Spinal Incision Start: 8:16 AM Incision Stop: Attestation: I was present for all of the critical portions of the operation and performed all critical portions. The resident/fellow/PA assisted during exposure, implantation of the device, and deep closure. The PA /AUTOMOTIVE CONSULTANT performed the closure of the subcutaneous tissue and skin. I was scrubbed from skin incision through the closure of the extensor mechanism and was immediately available for the duration of the entire case. Preop Diagnosis: Pre-Op Diagnosis Codes: * Primary osteoarthritis of left knee [M17.12] Postop Diagnosis: Same as Pre-Op Diagnosis Codes: * Primary osteoarthritis of left knee [M17.12] Implants: * No implants in log * OPERATIVE INDICATIONS: The patient has a long history of progressive left knee pain, arthritis, and degeneration. Non-operative treatment has been attempted but has not improved or controlled the symptoms and pain that occurs during normal daily activities. Knee motion has also become limited and is restricting the patient. Total knee arthroplasty was recommended. The risks, benefits and potential complications of the arthroplasty surgery were discussed with the patient in detail. Specific details of the surgical procedure, hospitalization, recovery, rehabilitation, and long-term precautions were also presented. Pre-operative teaching was provided. Implant/prosthesis selection was outlined, and the many options available were explained; the final choice will be made at the time of the procedure to match the anatomy and condition of the bone, ligaments, tendons, and muscles. The patient was evaluated medically for pre-operative optimization, and risk assessment. Rosleia-operative blood management and the potential for blood transfusion were discussed with risks and options clearly outlined. Understanding of all topics was conveyed to me by the patient pre-operatively, and patient consent was given to proceed with the robotically assisted left total knee replacement. OPERATIVE PROCEDURE: The patient was identified and brought into the Operating Room by the anesthesia and nursing teams. Anesthesia was successfully performed. The patient was then positioned supine on the operating room table, and all bony prominences were padded. Intravenous antibiotic prophylaxis dosing was confirmed. A tourniquet was applied to the upper thigh. A full knee exam was done after anesthesia was in full effect. The patient had developed a varus deformity in the knee from cartilage wear and bone loss. Flexion contracture was not present. The leg was prepped and draped in the usual sterile fashion. A surgical time-out was performed immediately preceding the incision with all personnel in the operating room; the patient identity was again confirmed, the correct knee surgical site and extremity were identified and confirmed, X-rays were reviewed, and availability of the appropriate surgical equipment was established. A surgical time-out was performed immediately preceding the incision with all personnel in the operating room; the patient identity was again confirmed, the correct knee surgical site and extremity were identified and confirmed, X-rays were reviewed, and availability of the appropriate surgical equipment was established. The knee was exsanguinated and exposed using an anterior-midline skin incision. Dissection was carried down through skin and subcutaneous tissue to the extensor mechanism with a scalpel. A median para-patellar arthrotomy was made to enter the knee space sharply. A large amount of normal appearing joint fluid was encountered and suctioned. The synovium was thickened, hypertrophic, and inflamed. A partial synovectomy was performed for exposure, and the medial and lateral gutters were cleared of scar and synovial reflections. The deep fibers of the medial collateral ligament was carefully elevated off the proximal 5-10 mm of tibial bone. The patella was then subluxed laterally. The knee was then f (more content not included)... Normal [facility] SURGICAL PATHOLOGYon 024 CASE REPORT Normal [facility] Comment on above: Order Comment: Speci men Type: TISSUE SPECIMENOrdering Facility: [facility] Address: [address] [place] [address] Result Comment: Surg [facility] Pathology Report Case: [id number] Authorizing Provider: Makayla Bradley MD Collected: 02/02/2024 08:29 AM Ordering Location: [facility] Surgery Received: 02/02/2024 10:18 AM Pathologist: Hollie Meraz MD Specimen: Knee, Left, Arthroplasty Performed By: #### S ####[facility] [id number] [address] [facility] CLINICAL HISTORY [facility] Comment on above: Order Comment: Speci [facility] Type: TISSUE SPECIMENOrdering Facility: [facility] Address: [address] [place] [address] Result Comment: Pre- op diagnosis: Primary osteoarthritis of left knee [M17.12] Performed By: #### S ####[facility] [id number] [address] OF EH FINAL DIAGNOSIS [facility] Comment on above: Order Comment: Speci men Type: TISSUE SPECIMENOrdering Facility: [facility] Address: [address] [place] [address] Result Comment: Knee , left, arthroplasty: - Degenerative joint disease. Performed By: #### S ####[facility] [id number] [address] FINAL PERFORMING LAB [facility] Comment on above: Order Comment: Speci [facility] Type: TISSUE SPECIMENOrdering Facility: [facility] Address: [address] [place] [address] Result Comment: Diag nostic interpretation performed at [facility], [address] [place] [address] CLIA# [id number] Director Of Housing: Shreyas Box M.D. Performed By: #### S ####[facility] [id number] [address] GROSS DESCRIPTION [facility] Comment on above: Order Comment: Speci [facility] Type: TISSUE SPECIMENOrdering Facility: [facility] Address: [address] [place] [address] Result Comment: Mary daniels, Left, Arthroplasty Received in formalin, labeled knee left arthroplasty are multiple segments of bone and cartilage measuring 8 x 8 x 4 cm in aggregate. One portion is recognizable as tibial plateau and shows eburnation and roughening of the articular surface. Separate fragments consistent with femoral condyles also show evidence of cartilage eburnation and roughening. Also received are multiple irregular fragments of epps tissue probably representing synovium, capsule and meniscus. Senior Inspector sections are submitted as follows: A1-A2 tibial plateau and femoral condyles following decalcification A3 soft tissue KSZ February 02, 2024 4:43 PM Gross examination performed at [facility], [address] [place] [address] Performed By: #### S ####[facility] [id number] [place] [id number] THERAPY NTon 02-02-2024 THERAPY NT HNO ID: [id number] Author: JAISON SANCHEZ PT Service: Physical Therapy Author Type: Physical Therapist Type: Therapy (PT/OT/Speech/Resp) Filed: 02/02/2024 18:00 Note Text: ----- Summary: PT Eval ----- Physical Therapy Evaluation Summary SERVICE DATE: 02/02/2024 SERVICE TIME: 1648 to 1734 ROOM: [id number] PT 6 Clicks Score: 15 Total Joint Replacement Discharge Readiness: Pending Physical Therapy Clearance DISCHARGE RECOMMENDATIONS Subacute/SNF Recommended Discharge Disposition Comments: Pt with decreased strength, balance and endurance, + falls risk, currently requires daily skilled therapy post acute stay. Recommended Discharge Disposition Due to: Functional deficits requiring ongoing therapy service prior to discharge home., Balance deficits, Functional status decline Recommended Discharge Equipment: Wheeled Walker, Crutch(es) (possibly to be issued) ASSESSMENT Response to Therapy Interventions: Good Participation in Activities, Low Activity Tolerance, Pain, Requires Additional Time to Complete Activities, Slow Progression with Functional Activities/Skills Pt is moderate to minimal assist with bed mobility and transfers, difficulty performing functional activity, increaesed pain with mobility. Pt noted to be hypertensive post session, nurinsg administering pain meds and BP medication during session. SNF is currently recommended however anticipate progression to home PT. Pt is AANDO x 3, follows cues appropriately. PRECAUTIONS Fall Risk, Lines/Tubes/Drains, Total Knee Replacement, Weight Bearing Restrictions Left Lower Extremity Weight Bearing Status: WBAT CURRENT HOSPITAL COURSE post L TKA Relevant Past Medical History: R TKA, PE (2013), brain aneurysm (+surgery, 2013). cardiac cath (2018), cholescystomy, HLD, RUTH, peripheral neuropathy, R shoulder injury/surgery (2013), RUTH, HTN, DM-type 2, anxiety, morbid obesity, CVA. HOME LIVING Patient Lives With: Spouse Assistance Available: Part-Time Entry To Home: Stairs, Without Rail Number Of Stairs Into Home: 2 Number Of Stairs To Bed/Bath: 5 Stairs to Bed/Bath with: Unilateral Rail Tub/Shower Type: walk in and tub shower Laundry: spouse to complete Equipment Owned: Cane PRIOR FUNCTIONAL LEVEL Within Functional Limits Pt reports independence with ADLs/IADLs, no use of a device, + driving. SUBJECTIVE Pt agreeable to PT, ok per nursing to treat. THERAPY DIAGNOSIS Difficulty walking-musculoskeletal TREATMENT INTERVENTIONS Evaluation, Therapeutic Activity (95664), Gait Training (75879) $ Evaluation-Low (14620) Billed Units: 1 unit Therapeutic Activity (72572) Treatment Minutes: 15 $ Therapeutic Activity (91679) Billed Units: 1 unit Exercise Ankle Pumps (number of reps): BLE x 10 Quad Sets (number of reps): BLE x 10 Glut Sets (number of reps): BLE x 10 Exercise: Pt educated in purpose and parameters of performance of anti-embolics Gait Training (73784) Treatment Minutes: 15 $ Gait Training (49657) Billed Units: 1 unit Timed Code Treatment (minutes): 30 Skilled Treatment Time (minutes): 45 TRAINING AND EDUCATION PROVIDED Advanced Balance Activities, Assistive Device Use, Bed Mobility, Benefits of In-Hospital Mobility, Discharge Planning, Disease Specific Education, Expected Functional Level, Falls Prevention, Gait Pattern, Reduction of Deviations, Home Safety, Positioning, Role of Physical Therapy, Standing Balance, Transfers, Stair Navigation, Treatment Protocol, Equipment, Modalities (need for walker and crutches or cane for stair negotiation) THERAPEUTIC SKILLS USED Activity Dosing, Assessment of Tolerance Including Vitals Response to Activity, Cues for Sequencing/Proper Technique for Activity, Cuing Tactile, Cuing Verbal, Cuing Visual, Physical Assist FUNCTIONAL STATUS Bed Mobility Supine To Sit: Moderate Assistance HOB slighlty elevated, use of bed rails, requires assist with trunk and LLE management. Cues provided for technique and effective use of UEs for assist, increased time to complete Sit to Supine: Additional Information in chair upon exit Scooting: Minimal Assistance assist provided to upper back to progress forward scooting at EOB Transfers Sit To Stand: Moderate Assistance, Minimal Assistance, Additional Information cues for proper hand placement, incerased anterior weight shifitng. Flucuating assist, increased difficulty from lower bed surface which is similar to home environment. X 2 trials Stand To Sit: Contact Guard Assistance cues for safe approach to surface, proper hand placement, controlled descent to sit Bed to Chair Contact Guard Assistance Bed To Chair Transfer Type: Stepping Bed To Chair Transfer Equipment: Wheeled Walker cues for safe walker placement with turning Gait Mi (more content not included)... [facility] XR KNEE 2V AP/LAT LTon 02-01 XR KNEE 2V AP/LAT LT * * *Final Report* * * DATE OF EXAM: Feb 02 2024 10:34AM MDX 5206 - XR KNEE 2V AP/LAT LT / PROCEDURE REASON: Post Operative Assessment * * * * Physician Interpretation * * * * PROCEDURE: Left knee INDICATION: Post Operative Assessment.POST OP LEFT KNEE TECHNIQUE: XR KNEE 2V AP/LAT LT COMPARISON: 11/30/2023 FINDINGS: The lateral view is suboptimally positioned. There is a new total knee arthroplasty in satisfactory position with associated postoperative soft tissue changes. No periprosthetic fracture. 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 Possibility to obtain IV venofer prior to upcoming surgery unlikely. DOS 02/02/2024. Please advise if you are okay proceeding without? Thank you Carolina Ojeda APRN.CNP 01/29/2024 3:[address] Bradley Ok to proceed . Thank you Allergies As of Date: 01/29/2024 Noted Allergy Reaction CATS 02/20/2012 7 - Swelling LATEX 02/20/2012 2 - Rash LISINOPRIL 10/27/2018 7 - Swelling Comments: Tongue swells up PERCOCET (OXYCODONE-ACETAMINOPHEN) 10/20/2018 9 - Itching Date Reviewed: 01/29/2024 Reviewed by: Carolina Ojeda APRN.HUMAN MACHINE INTERFACE ENGINEER - Fully Assessed Reason for Visit: Results [95] Prescriptions as of 01/29/2024 - mupirocin (BACTROBAN) 2 % ointment Apply 0.5 inch with cotton swab (Q-tip) to each nostril in the morning and evening for 5 days prior to and including day of surgery. - omeprazole (PRILOSEC) 40 mg capsule Take 1 capsule by mouth once daily. - gabapentin (NEURONTIN) 800 mg tablet Take 1 tablet by mouth three times a day for 180 days. - amLODIPine (NORVASC) 5 mg tablet Take 1 tablet by mouth once daily. - carvedilol (COREG) 12.5 mg tablet 1 tablet two times a day with meals. - traZODone (DESYREL) 50 mg tablet Take 1 tablet by mouth daily at bedtime. - amLODIPine (NORVASC) 2.5 mg tablet take 1 tablet by mouth every day - ergocalciferol 50,000 unit capsule (VITAMIN D2, DRISDOL) Take 1 capsule by mouth one time a week. - meclizine (ANTIVERT) 25 mg tab Take 25 mg by mouth. - albuterol HFA (PROAIR HFA) 90 mcg/actuation inhaler Inhale 1 Puff as instructed every 4 hours as needed. - ferrous sulfate 325 mg (65 mg iron) tablet Take 325 mg by mouth daily with breakfast. - CPAP Problem List As Of Date 01/29/2024 Noted Resolved Climacteric [N95.1] 03/23/2012 Arthritis of knee, left [M17.12] 10/21/2012 10/20/2018 Right shoulder injury [S49.91XA] 10/21/2012 10/20/2018 Hypertension [I10] 10/21/2012 Type II or unspecified type diabetes mellitus w*10/21/2012 10/20/2018 H/O Pulmonary embolism (HCC) [I26.99] 12/13/2012 04/16/2023 Hyperlipidemia with target low density lipoprot*02/25/2013 Arthritis of right knee [M17.11] 05/21/2013 Rotator cuff disorder [M67.919] 05/21/2013 10/20/2018 Urinary incontinence [R32] 10/04/2015 Lower urinary tract symptoms (LUTS) [R39.9] 10/04/2015 H/O Brain Aneurysm [I67.1] 10/20/2018 H/O Stroke (HCC) [I63.9] 10/20/2018 Asthma [J45.909] 10/20/2018 Diabetes mellitus type 2, uncomplicated (HCC) [*10/20/2018 Peripheral neuropathy [G62.9] 10/20/2018 WEISS (dyspnea on exertion) [R06.09] 10/20/2018 Chest pain of uncertain etiology [R07.9] 10/20/2018 Stage 2 chronic kidney disease [N18.2] 10/20/2018 Anemia [D64.9] 10/20/2018 Anxiety [F41.9] 10/20/2018 Morbidly obese (HCC) [E66.01] 10/20/2018 RUTH (obstructive sleep apnea) [G47.33] 10/20/2018 S/P total knee replacement [Z96.659] 10/27/2018 Post-traumatic osteoarthritis of right shoulder*08/02/2019 Rotator cuff syndrome of left shoulder [M75.102]11/02/2019 Atrial fibrillation (HCC) [I48.91] 04/16/2023 Encounter Status:Closed by CAROLINA OJEDA on 01/29/24 Normal [facility] FERRITINon 01-28-2024 Ferritin [Mass/Vol] 26.8 ng/mL 14.7 - 2 05.1 ng/mL [facility] Ferritin [Mass/Vol]on 2023 Interpretation and review of laboratory results Normal [facility] Iron and Iron binding capaci ty panelon 01-28-2024 Interpretation and review of laboratory results Abnormal [facility] Iron [Mass/Vol] 49 ug/dL 41 - 186 ug/dL [facility] Iron binding capacity [Mass/Vol] 370 ug/dL 232 - 386 ug/dL [facility] Iron/TIBC [Molar ratio] 13.2 % Low 15.0 - 57.0 % [facility] CBC W Auto Differential pane l (Bld)on 01-27-2024 Basophils (Bld) [#/Vol] 0.03 10*3/uL [facility] Basophils/100 WBC (Bld) 0.6 % [facility] Differential cell count method Nom (Bld) Auto [facility] Eosinophils (Bld) [#/Vol] 0.18 10*3/uL [facility] Eosinophils/100 WBC (Bld) 3.6 % [facility] Erythrocyte distribution width (RBC) [Ratio] 14.1 % 11.5 - 15.0 % [facility] Hematocrit (Bld) [Volume fraction] 37.5 % 36.0 - 46.0 % [facility] Hemoglobin (Bld) [Mass/Vol] 11.4 g/dL Low 11.5 - 15.5 g/dL [facility] Immature granulocytes (Bld) [#/Vol] [facility] Immature granulocytes/100 WBC (Bld) 0.0 % [facility] Interpretation and review of laboratory results Abnormal [facility] Lymphocytes (Bld) [#/Vol] 2.34 10*3/uL [facility] Lymphocytes/100 WBC (Bld) 46.8 % [facility] MCH (RBC) [Entitic mass] 25.5 pg Low 26.0 - 34.0 pg [facility] MCHC (RBC) [Mass/Vol] 30.4 g/dL Low 30.5 - 36.0 g/dL [facility] MCV (RBC) [Entitic vol] 83.9 fL 80.0 - 100.0 fL [facility] Monocytes (Bld) [#/Vol] 0.47 10*3/uL [facility] Monocytes/100 WBC (Bld) 9.4 % [facility] Neutrophils (Bld) [#/Vol] 1.98 10*3/uL [facility] Neutrophils/100 WBC (Bld) 39.6 % [facility] Nucleated RBC (Bld) [#/Vol] NINF [facility] Nucleated RBC/100 WBC (Bld) [Ratio] 0.0 % /100 WBC [facility] Platelet mean volume (Bld) [Entitic vol] 10.4 fL 9.0 - 12.7 fL [facility] Platelets (Bld) [#/Vol] 283 10*3/uL [facility] RBC (Bld) [#/Vol] 4.47 10*6/uL 3.90 - 5.2 0 m/uL [facility] WBC (Bld) [#/Vol] 5.00 10*3/uL [facility] Basophils (Bld) [#/Vol] 0.03 10*3/uL Normal <0.11 [facility] Comment on above: Order Comment: Speci men Type: BLOOD SPECIMENOrdering Facility: [facility] Address: [address] [place] [address] Performed By: #### 5 7021-8 ####[facility] [id number] [place] [address] [place] Basophils/100 WBC (Bld) 0.6 % Normal [facility] Comment on above: Order Comment: Speci men Type: BLOOD SPECIMENOrdering Facility: [facility] Address: [address] [place] [address] Performed By: #### 5 7021-8 ####[facility] KELSEYAraceliLEAHLIA [id number] [place] [address] [place] Differential cell count method Nom (Bld) Auto Normal [facility] Comment on above: Order Comment: Speci men Type: BLOOD SPECIMENOrdering Facility: [facility] Address: [address] [place] [address] Performed By: #### 5 7021-8 ####[facility]PITALLEAHLIA [id number] [place] [address] [place] Eosinophils (Bld) [#/Vol] 0.18 10*3/uL Normal <0.46 [facility] Comment on above: Order Comment: Speci men Type: BLOOD SPECIMENOrdering Facility: [facility] Address: [address] [place] [address] Performed By: #### 5 7021-8 ####[facility]ITALSOCORROA [id number] [place] [address] [place] Eosinophils/100 WBC (Bld) 3.6 % Normal [facility] Comment on above: Order Comment: Speci men Type: BLOOD SPECIMENOrdering Facility: [facility] Address: [address] [place] [address] Performed By: #### 5 7021-8 ####[facility]PITALLEAHLIA [id number] [place] [address] [place] Erythrocyte distribution width (RBC) [Ratio] 14.1 % Normal 11.5-15.0 [facility] Comment on above: Order Comment: Speci men Type: BLOOD SPECIMENOrdering Facility: [facility] Address: [address] [place] [address] Performed By: #### 5 7021-8 ####[facility] HOSPITALNCJANAA [id number] [place] [id number] [place] Hematocrit (Bld) [Volume fraction] 37.5 % Normal 36.0-46.0 [facility] Comment on above: Order Comment: Speci men Type: BLOOD SPECIMENOrdering Facility: [facility] Address: [address] [place] [address] Performed By: #### 5 7021-8 ####[facility] [id number] [place] [address] [place] Hemoglobin (Bld) [Mass/Vol] 11.4 g/dL Low 11.5-15.5 [facility] Comment on above: Order Comment: Speci men Type: BLOOD SPECIMENOrdering Facility: [facility] Address: [address] [place] [address] Performed By: #### 5 7021-8 ####[facility] [id number] [place] [address] [place] Immature granulocytes (Bld) [#/Vol] 10*3/uL Normal <0.10 [facility] Comment on above: Order Comment: Speci men Type: BLOOD SPECIMENOrdering Facility: [facility] Address: [address] [place] [address] Performed By: #### 5 7021-8 ####[facility] [id number] [place] [address] [place] Immature granulocytes/100 WBC (Bld) 0.0 % Normal [facility] Comment on above: Order Comment: Speci men Type: BLOOD SPECIMENOrdering Facility: [facility] Address: [address] [place] [address] Performed By: #### 5 7021-8 ####[facility]ITALNCBE[facility] [id number] [place] [address] [place] Lymphocytes (Bld) [#/Vol] 2.34 10*3/uL Normal 1.00-4.00 [facility] Comment on above: Order Comment: Speci men Type: BLOOD SPECIMENOrdering Facility: [facility] Address: [address] [place] [address] Performed By: #### 5 7021-8 ####[facility] KELSEYCAT [id number] [place] [address] [place] Lymphocytes/100 WBC (Bld) 46.8 % Normal [facility] Comment on above: Order Comment: Speci men Type: BLOOD SPECIMENOrdering Facility: [facility] Address: [address] [place] [address] Performed By: #### 5 7021-8 ####[facility] HOSPITALNCRASTA [id number] [place] [address] [place] MCH (RBC) [Entitic mass] 25.5 pg Low 26.0-34.0 [facility] Comment on above: Order Comment: Speci men Type: BLOOD SPECIMENOrdering Facility: [facility] Address: [address] [place] [address] Performed By: #### 5 7021-8 ####[facility] HOSPITALNCRASTA [id number] [place] [address] [place] MCHC (RBC) [Mass/Vol] 30.4 g/dL Low 30.5-36.0 [facility] Comment on above: Order Comment: Speci men Type: BLOOD SPECIMENOrdering Facility: [facility] Address: [address] [place] [address] Performed By: #### 5 7021-8 ####[facility] HOSPITALNCLIA [id number] [place] [address] [place] MCV (RBC) [Entitic vol] 83.9 fL Normal 80.0-100.0 [facility] Comment on above: Order Comment: Speci men Type: BLOOD SPECIMENOrdering Facility: [facility] Address: [address] [place] [address] Performed By: #### 5 7021-8 ####[facility] MILLTOWNCLIA [id number] [place] [address] [place] Monocytes (Bld) [#/Vol] 0.47 10*3/uL Normal <0.87 [facility] Comment on above: Order Comment: Speci men Type: BLOOD SPECIMENOrdering Facility: [facility] Address: [address] [place] [address] Performed By: #### 5 7021-8 ####[facility] HOSPITALLIA [id number] [place] [address] [place] Monocytes/100 WBC (Bld) 9.4 % Normal [facility] Comment on above: Order Comment: Speci men Type: BLOOD SPECIMENOrdering Facility: [facility] Address: [address] [place] [address] Performed By: #### 5 7021-8 ####[facility] HOSPITALLIA [id number] [place] [address] [place] Neutrophils (Bld) [#/Vol] 1.98 10*3/uL Normal 1.45-7.50 [facility] Comment on above: Order Comment: Speci men Type: BLOOD SPECIMENOrdering Facility: [facility] Address: [address] [place] [address] Performed By: #### 5 7021-8 ####[facility] WALESWNCLIA [id number] [place] [address] [place] Neutrophils/100 WBC (Bld) 39.6 % Normal [facility] Comment on above: Order Comment: Speci men Type: BLOOD SPECIMENOrdering Facility: [facility] Address: [address] [place] [address] Performed By: #### 5 7021-8 ####[facility] HOSPITALNCLIA [id number] [place] [address] [place] Nucleated RBC (Bld) [#/Vol] 10*3/uL Normal <0.01 [facility] Comment on above: Order Comment: Speci men Type: BLOOD SPECIMENOrdering Facility: [facility] Address: [address] [place] [address] Performed By: #### 5 7021-8 ####[facility] [id number] [place] [address] [place] Nucleated RBC/100 WBC (Bld) [Ratio] 0.0 /100 WBC Normal [facility] Comment on above: Order Comment: Speci men Type: BLOOD SPECIMENOrdering Facility: [facility] Address: [address] [place] [address] Performed By: #### 5 7021-8 ####[facility]ITALNCBE[facility] [id number] [place] [address] [place] Platelet mean volume (Bld) [Entitic vol] 10.4 fL Normal 9.0-12.7 [facility] Comment on above: Order Comment: Speci men Type: BLOOD SPECIMENOrdering Facility: [facility] Address: [address] [place] [address] Performed By: #### 5 7021-8 ####[facility] [id number] [place] [address] [place] Platelets (Bld) [#/Vol] 283 10*3/uL Normal 150-400 [facility] Comment on above: Order Comment: Speci men Type: BLOOD SPECIMENOrdering Facility: [facility] Address: [address] [place] [address] Performed By: #### 5 7021-8 ####[facility] [id number] [place] [address] [place] RBC (Bld) [#/Vol] 4.47 10*6/uL Normal 3.90-5.20 [facility] Comment on above: Order Comment: Speci men Type: BLOOD SPECIMENOrdering Facility: [facility] Address: [address] [place] [address] Performed By: #### 5 7021-8 ####[facility] TJ HIGHTOWERWNCLIA [id number] [place] [address] [place] WBC (Bld) [#/Vol] 5.00 10*3/uL Normal 3.70-11.00 [facility] Comment on above: Order Comment: Speci men Type: BLOOD SPECIMENOrdering Facility: [facility] Address: [address] [place] [address] Performed By: #### 5 7021-8 ####[facility] TJ HIGHTOWERNCLIA [id number] [address] OF [place] 01-27-2024 KY[place] Telephone (DUYENO) ----- CADEN LLAMAS ([id number]) 1955 F Date Time Provider Department 01/27/24 CAROLINA OJEDA During your visit today, we recorded the following information about you: Carolina Ojeda APRN.CNP 01/27/2024 2:55 PM Signed Please request cardiac records/testing from Dr. Broderick's office, including recent EKG. Candi Baird LPN 01/29/2024 7:53 AM Signed Pulled EKG rhythm strip and cardiac records from [employer]. Original sent to [facility] through [employer] and copy given to Carolina Ojeda CNP. Candi Baird LPN Allergies As of Date: 01/27/2024 Noted Allergy Reaction CATS 02/20/2012 7 - Swelling LATEX 02/20/2012 2 - Rash LISINOPRIL 10/27/2018 7 - Swelling Comments: Tongue swells up PERCOCET (OXYCODONE-ACETAMINOPHEN) 10/20/2018 9 - Itching Date Reviewed: 01/27/2024 Reviewed by: Carolina Ojeda APRN.CNP - Fully Assessed Reason for Visit: Request Outside Medical Records [[id number]] Prescriptions as of 01/29/2024 - mupirocin (BACTROBAN) 2 % ointment Apply 0.5 inch with cotton swab (Q-tip) to each nostril in the morning and evening for 5 days prior to and including day of surgery. - omeprazole (PRILOSEC) 40 mg capsule Take 1 capsule by mouth once daily. - gabapentin (NEURONTIN) 800 mg tablet Take 1 tablet by mouth three times a day for 180 days. - amLODIPine (NORVASC) 5 mg tablet Take 1 tablet by mouth once daily. - carvedilol (COREG) 12.5 mg tablet 1 tablet two times a day with meals. - traZODone (DESYREL) 50 mg tablet Take 1 tablet by mouth daily at bedtime. - amLODIPine (NORVASC) 2.5 mg tablet take 1 tablet by mouth every day - ergocalciferol 50,000 unit capsule (VITAMIN D2, DRISDOL) Take 1 capsule by mouth one time a week. - meclizine (ANTIVERT) 25 mg tab Take 25 mg by mouth. - albuterol HFA (PROAIR HFA) 90 mcg/actuation inhaler Inhale 1 Puff as instructed every 4 hours as needed. - ferrous sulfate 325 mg (65 mg iron) tablet Take 325 mg by mouth daily with breakfast. - CPAP Problem List As Of Date 01/27/2024 Noted Resolved Climacteric [N95.1] 03/23/2012 Arthritis of knee, left [M17.12] 10/21/2012 10/20/2018 Right shoulder injury [S49.91XA] 10/21/2012 10/20/2018 Hypertension [I10] 10/21/2012 Type II or unspecified type diabetes mellitus w*10/21/2012 10/20/2018 H/O Pulmonary embolism (HCC) [I26.99] 12/13/2012 04/16/2023 Hyperlipidemia with target low density lipoprot*02/25/2013 Arthritis of right knee [M17.11] 05/21/2013 Rotator cuff disorder [M67.919] 05/21/2013 10/20/2018 Urinary incontinence [R32] 10/04/2015 Lower urinary tract symptoms (LUTS) [R39.9] 10/04/2015 H/O Brain Aneurysm [I67.1] 10/20/2018 H/O Stroke (HCC) [I63.9] 10/20/2018 Asthma [J45.909] 10/20/2018 Diabetes mellitus type 2, uncomplicated (HCC) [*10/20/2018 Peripheral neuropathy [G62.9] 10/20/2018 WEISS (dyspnea on exertion) [R06.09] 10/20/2018 Chest pain of uncertain etiology [R07.9] 10/20/2018 DONYA (acute kidney injury) (HCC) [N17.9] 10/20/2018 Anemia [D64.9] 10/20/2018 Anxiety [F41.9] 10/20/2018 Morbidly obese (HCC) [E66.01] 10/20/2018 RUTH (obstructive sleep apnea) [G47.33] 10/20/2018 S/P total knee replacement [Z96.659] 10/27/2018 Post-traumatic osteoarthritis of right shoulder*08/02/2019 Rotator cuff syndrome of left shoulder [M75.102]11/02/2019 Atrial fibrillation (HCC) [I48.91] 04/16/2023 Encounter Status:Closed by CANDI BAIRD on 01/29/24 Normal [facility] Comprehensive metabolic 2000 panelOrdered By: Hellen Pink on 01-27-2024 Albumin [Mass/Vol] 4.0 g/dL 3.9 - 4.9 g/dL [facility] ALP [Catalytic activity/Vol] 136 U/L High 34 - 123 U/L [facility] ALT [Catalytic activity/Vol] 7 U/L 7 - 38 U/L [facility] Anion gap [Moles/Vol] 9 mmol/L 8 - 15 mmol/L [facility] AST [Catalytic activity/Vol] 14 U/L 13 - 35 U/L [facility] Bilirubin [Mass/Vol] 0.3 mg/dL 0.2 - 1 .3 mg/dL [facility] Calcium [Mass/Vol] 9.0 mg/dL 8.5 - 10. 2 mg/dL [facility] Chloride [Moles/Vol] 103 mmol/L 98 - 10 7 mmol/L [facility] CO2 [Moles/Vol] 27 mmol/L 22 - 30 mmol/L [facility] Creatinine [Mass/Vol] 1.05 mg/dL High 0.58 - 0.96 mg/dL [facility] GFR/1.73 sq M.predicted among non-blacks MDRD (S/P/Bld) [Vol rate/Area] 57 mL/min/{1.73_m2} Low - PINF [facility] Comment on above: Estimated Glomerular Filtration Rate (eGFR) is calculated using the 2020 CKD-EPI creatinine equation. This equation utilizes serum creatinine, sex, and age as parameters. The creatinine assay has traceable calibration to isotope dilution-mass spectrometry. Refer to KDIGO guidelines for clinical interpretation. In patients with unstable renal function, e.g. those with acute kidney injury, the eGFR may not accurately reflect actual GFR. Glucose [Mass/Vol] 111 mg/dL High 74 - 99 mg/dL [facility] Comment on above: The [place] Diabete s Association (ADA) provides guidance for cutoff values for fasting glucose and random glucose. The ADA defines fasting as no caloric intake for at least 8 hours. Fasting plasma glucose results between 100 to 125 mg/dL indicate increased risk for diabetes (prediabetes). Fasting plasma glucose results greater than or equal to 126 mg/dL meet the criteria for diagnosis of diabetes. In the absence of unequivocal hyperglycemia, results should be confirmed by repeat testing. In a patient with classic symptoms of hyperglycemia or hyperglycemic crisis, random plasma glucose results greater than or equal to 200 mg/dL meet the criteria for diagnosis of diabetes. Reference: Standards of Medical Care in Diabetes 2016, [place] Diabetes Association. Diabetes Care. 2016.39(Suppl 1). Interpretation and review of laboratory results Abnormal [facility] Potassium [Moles/Vol] 3.8 mmol/L 3.7 - 5.1 mmol/L [facility] Protein [Mass/Vol] 7.1 g/dL 6.3 - 8.0 g/dL [facility] Sodium [Moles/Vol] 139 mmol/L 136 - 144 mmol/L [facility] Urea nitrogen [Mass/Vol] 8 mg/dL 7 - 21 mg/dL [facility] Comprehensive metabolic 2000 panelon 01-27-2024 Albumin [Mass/Vol] 4.0 g/dL Normal 3.9-4.9 [facility] Comment on above: Order Comment: Speci men Type: BLOOD SPECIMENOrdering Facility: [facility] Address: [address] [place] [address] Performed By: #### 2 4323-8 ####[facility]ESWNCL[facility] [id number] [place] [address] [place] ALP [Catalytic activity/Vol] 136 U/L High 34-123 [facility] Comment on above: Order Comment: Speci men Type: BLOOD SPECIMENOrdering Facility: [facility] [facility] Address: [address] [place] [address] Performed By: #### 2 4323-8 ####[facility] [id number] [place] [address] [place] ALT [Catalytic activity/Vol] 7 U/L Normal 7-38 [facility] Comment on above: Order Comment: Speci men Type: BLOOD SPECIMENOrdering Facility: [facility] Address: [address] [place] [address] Performed By: #### 2 4323-8 ####[facility] [id number] [place] [address] [place] Anion gap [Moles/Vol] 9 mmol/L Normal 8-15 [facility] Comment on above: Order Comment: Speci men Type: BLOOD SPECIMENOrdering Facility: [facility] Address: [address] [place] [address] Performed By: #### 2 4323-8 ####[facility] [id number] [place] [address] [place] AST [Catalytic activity/Vol] 14 U/L Normal 13-35 [facility] Comment on above: Order Comment: Speci men Type: BLOOD SPECIMENOrdering Facility: [facility] Address: [address] [place] [address] Performed By: #### 2 4323-8 ####[facility] MILLTOWNCLIA [id number] [place] [address] [place] Bilirubin [Mass/Vol] 0.3 mg/dL Normal 0.2-1.3 [facility] Comment on above: Order Comment: Speci men Type: BLOOD SPECIMENOrdering Facility: [facility] Address: [address] [place] [address] Performed By: #### 2 4323-8 ####[facility] MILLTOWNCLIA [id number] [place] [address] [place] Calcium [Mass/Vol] 9.0 mg/dL Normal 8.5-10.2 [facility] Comment on above: Order Comment: Speci men Type: BLOOD SPECIMENOrdering Facility: [facility] Address: [address] [place] [address] Performed By: #### 2 4323-8 ####[facility]CL[facility] [id number] [place] [address] [place] Chloride [Moles/Vol] 103 mmol/L Normal 98-107 [facility] Comment on above: Order Comment: Speci men Type: BLOOD SPECIMENOrdering Facility: [facility] Address: [address] [place] [address] Performed By: #### 2 4323-8 ####[facility] MILLTOWNCLIA [id number] [place] [address] [place] CO2 [Moles/Vol] 27 mmol/L Normal 22-30 [facility] Comment on above: Order Comment: Speci men Type: BLOOD SPECIMENOrdering Facility: [facility] Address: [address] [place] [address] Performed By: #### 2 4323-8 ####[facility] MILLTOWNCLIA [id number] [place] [address] [place] Creatinine [Mass/Vol] 1.05 mg/dL High 0.58-0.96 [facility] Comment on above: Order Comment: Gia gramajo Type: BLOOD SPECIMENOrdering Facility: [facility] Address: [address] [place] [address] Performed By: #### 2 4323-8 ####[facility] [id number] [place] [address] [place] Creatinine and Glomerular filtration rate.predicted panel (S/P/Bld) 57 mL/min/1.73m??? Low >=60 [facility] Comment on above: Order Comment: Gia gramajo Type: BLOOD SPECIMENOrdering Facility: [facility] Address: [address] [place] [address] Result Comment: Reshma mated Glomerular Filtration Rate (eGFR) is calculated using the 2020 CKD-EPI creatinine equation. This equation utilizes serum creatinine, sex, and age as parameters. The creatinine assay has traceable calibration to isotope dilution-mass spectrometry. Refer to KDIGO guidelines for clinical interpretation. In patients with unstable renal function, e.g. those with acute kidney injury, the eGFR may not accurately reflect actual GFR. Performed By: #### 2 4323-8 ####[facility] [id number] [place] [address] [place] Glucose [Mass/Vol] 111 mg/dL High 74-99 [facility] Comment on above: Order Comment: Gia gramajo Type: BLOOD SPECIMENOrdering Facility: [facility] Address: [address] [place] [address] Result Comment: The [place] Diabetes Association (ADA) provides guidance for cutoff values for fasting glucose and random glucose. The ADA defines fasting as no caloric intake for at least 8 hours. Fasting plasma glucose results between 100 to 125 mg/dL indicate increased risk for diabetes (prediabetes). Fasting plasma glucose results greater than or equal to 126 mg/dL meet the criteria for diagnosis of diabetes. In the absence of unequivocal hyperglycemia, results should be confirmed by repeat testing. In a patient with classic symptoms of hyperglycemia or hyperglycemic crisis, random plasma glucose results greater than or equal to 200 mg/dL meet the criteria for diagnosis of diabetes. Reference: Standards of Medical Care in Diabetes 2016, [place] Diabetes Association. Diabetes Care. 2016.39(Suppl 1). Performed By: #### 2 4323-8 ####[facility] [id number] [place] [address] [place] Potassium [Moles/Vol] 3.8 mmol/L Normal 3.7-5.1 [facility] Comment on above: Order Comment: Speci men Type: BLOOD SPECIMENOrdering Facility: [facility] Address: [address] [place], [place] [address] Performed By: #### 2 4323-8 ####[facility] [id number] [place] [address] [place] Protein [Mass/Vol] 7.1 g/dL Normal 6.3-8.0 [facility] Comment on above: Order Comment: Speci men Type: BLOOD SPECIMENOrdering Facility: [facility] Address: [address] [place], [place] [address] Performed By: #### 2 4323-8 ####[facility] [id number] [place] [address] [place] Sodium [Moles/Vol] 139 mmol/L Normal 136-144 [facility] Comment on above: Order Comment: Speci men Type: BLOOD SPECIMENOrdering Facility: [facility] Address: [address] [place] [address] Performed By: #### 2 4323-8 ####[facility] [id number] [place] [address] [place] Urea nitrogen [Mass/Vol] 8 mg/dL Normal 7-21 [facility] Comment on above: Order Comment: Speci men Type: BLOOD SPECIMENOrdering Facility: [facility] Address: [address] [place], [place] [address] [id number] Performed By: #### 2 4323-8 ####[facility] [id number] [place] [address] [place] Ferritin SerPl-mCncon 2023 Ferritin [Mass/Vol] 26.8 ng/mL Normal 14.7-205.1 [facility] Comment on above: Order Comment: Speci men Type: BLOOD SPECIMENOrdering Facility: [facility] Address: [address] [place] [address] Performed By: #### 5 0190-8, 2276-4 ####[facility] LABCLIA [id number] [place] [address] [place] HISTORY PHYSICALon HISTORY PHYSICAL HNO ID: [id number] Author: CAROLINA OJEDA APRN.HUMAN MACHINE INTERFACE ENGINEER Service: ? Author Type: Nurse Practitioner Type: H&P Filed: 01/29/2024 15:00 Note Text: [facility] HISTORY AND PHYSICAL EXAMINATION SERVICE DATE: 01/27/2024 SERVICE TIME: 2:55 PM PRIMARY CARE PHYSICIAN: Moises Malcolm APRN.HUMAN MACHINE INTERFACE ENGINEER Assessment Patient has the following medical conditions which may affect roselia-operative course: Anemia Assessment: chronic, mild anemia, pre-op labs revealed Hgb 11.4, Ferritin 26.8 and Tsat 13.2. TE to surgeon's office to inform him unlikely possibility to obtain IV venofer prior to upcoming surgery. H/O Stroke (HCC) Assessment: Dx in 2012; no apparent residual. TIA in 2018? Per patient. H/O Brain Aneurysm Assessment: Repair with coil in 2012; L MCA. brain MRI normal 09/2018. Peripheral neuropathy Assessment: controlled on rx Atrial fibrillation (HCC) Assessment: paroxymal, daily ASA, following WHG, per last OV she was to have obtained an echo and stress test for a bariatric surgery last year, those records were requested, not included in original request 08/06/2022 Dr. Broderick, [facility] Hyperlipidemia with target low density lipoprotein (LDL) cholesterol less than 100 mg/dL Assessment: c/w statin Hypertension Assessment: controlled on rx, recheck 140/90, asymptomatic Last 14 BP Last 14 Encounter BP Readings: Date: BP: 01/27/2024 142/100 12/08/2023 124/86 10/26/2023 132/80 04/16/2023 128/78 07/07/2019 173/91 07/04/2019 188/93 06/30/2019 168/88 06/27/2019 158/90 06/24/2019 157/89 06/22/2019 169/90 06/01/2019 183/103 05/23/2019 175/96 05/16/2019 156/95 10/20/2018 152/83 Chest pain of uncertain etiology Assessment: hx 2018 with normal heart cath, denies any current CP, palpitations, no new/worsening WEISS, sob, or any other new or worsening cardiac symptoms Asthma Assessment: PRN inhaler, uses 2-3 x month. Depends on weather. WEISS (dyspnea on exertion) Assessment: chronic with stairs, recent stress and echo (2022) requested from [facility] RUTH (obstructive sleep apnea) Assessment: non-compliant with CPAP Stage 2 chronic kidney disease Assessment: Creatinine Date Value Ref Range Status 01/27/2024 1.05 (H) 0.58 - 0.96 mg/dL Final 04/16/2023 0.97 (H) 0.58 - 0.96 mg/dL Final 06/01/2020 0.98 (H) 0.510 - 0.950 MG/DL Final Comment: Patients receiving either N-Acetylcysteine (NAC) or Metamizole prior to venipuncture, may have falsely depressed results. 05/16/2019 0.93 0.58 - 0.96 mg/dL Final Urinary incontinence Assessment: and fecal incontinence, referred to gastro last fall by PCP's office but not consultation found Diabetes mellitus type 2, uncomplicated (HCC) Assessment: diet controlled Hemoglobin A1C (%) Date Value 06/01/2020 6.2 Hemoglobin A1C (POCT) (%) Date Value 10/26/2023 5.9 S/P total knee replacement Assessment: hx Anxiety Assessment: hx, no current tx Morbidly obese (HCC) Assessment: Body mass index is 40.6 kg/m?. Carrizales Activity Status Index: METS: Walk indoors, such as around the house (1.75 METs) Do light work around the house, such as dusting or washing dishes (2.70 METs) Take care of self; that is eating, dressing, bathing, using the toilet (2.75 METs) Walk a block or two on level ground (2.75 METs) DASI Score: 9.95 Patient denies any chest pain or undue shortness of breath with the above physical activity. Clinical Frailty Scale: 3. Well, with treated comorbid disease STOP-Bang Score: Denies snoring loudly Denies feeling tired, fatigued, or sleepy during the daytime Has not been observed to stop breathing or choking/gasping during sleep Denies having high blood pressure BMI less than or equal to 35 kg/m2 Patient 50 years old or younger Does not have a large neck STOP-Bang Score: 0 [id number] Score: Age: 65-74 Sex: female CHF history: No Hypertension history: Yes Stroke/TIA/thromboembolis m history: Yes Vascular disease history: No Diabetes history: Yes [id number] Score: 6 ARISCAT Score: Age: 51-80 Preoperative SpO2: >=96% Respiratory infection in the last month: No Preoperative anemia: No Surgical incision: peripheral Duration of surgery: 2-3 hrs Emergency procedure: No ARISCAT Score: 19 ANESTHESIA FINDINGS: Intubation History: No history of difficult intubation Significant Anesthesia Considerations: none Airway History: No history of difficult airway I - PHYSICAL EVALUATION AIRWAY Patient intubated: No. Tracheostomy tube not present Mallampati: III. TM distance: >3 FB. Neck ROM: full ROM without neurological symptoms. Mouth opening: adequate. Short neck: no. Thick neck: yes Enciso present: no Lip Bite Test: I Microretrognathia/Microna gthia/Recessed Chin: No II - ANESTHESIA PLAN Anesthetic Plan: other Beta Anjelica Monitoring Plan Post Procedure Analgesic Plan Informed Consent (more content not included)... Normal [facility] Iron and Iron binding capaci ty panelon 01-27-2024 Iron [Mass/Vol] 49 ug/dL Normal 41-186 [facility] Comment on above: Order Comment: Speci men Type: BLOOD SPECIMENOrdering Facility: [facility] Address: [address] [place] [address] Performed By: #### 5 0190-8, 2276-4 ####[facility] LABCLIA [id number] [place] [address] [place] Iron binding capacity [Mass/Vol] 370 ug/dL Normal 232-386 [facility] Comment on above: Order Comment: Speci men Type: BLOOD SPECIMENOrdering Facility: [facility] Address: [address] [place] [address] Performed By: #### 5 0190-8, 2276-4 ####[facility] LABCLIA [id number] [place] [address] [place] Iron/TIBC [Molar ratio] 13.2 % Low 15.0-57.0 [facility] Comment on above: Order Comment: Speci men Type: BLOOD SPECIMENOrdering Facility: [facility] Address: [address] [place] [address] Performed By: #### 5 0190-8, 2276-4 ####[facility] LABCLIA [id number] [place] [address] [place] ALLIED HEALTHon 01-19-2024 ALLIED HEALTH HNO ID: [id number] Author: SOMMER HALL CT Service: Radiology Author Type: Technologist Type: Allied Health Filed: 01/19/2024 09:11 Note Text: Radiology Service Progress Note PATIENT NAME: Caden Llamas DATE OF SERVICE: January 19, 2024 TIME: 9:11 AM PATIENT IDENTITY VERIFICATION COMPLETED USING TWO (2) IDENTIFIERS: Name and Date of confirmed by patient verbally and Name and Date of confirmed by identification band. FALL SCREENING: Has the patient had 2 falls in the last year or 1 fall with injury or currently using an Ambulatory Assistive Device (Walker, Cane, Wheelchair, Crutches, etc.)? No PATIENT GENDER DATA: Female. status: : No status: NO. PATIENT RELEVANT IMPLANT DATA REVIEWED: Not Applicable PATIENT PRESENTS WITH AN IMPLANTABLE OR ATTACHED PLASTERER FOREMAN: No RADIOLOGY DEPARTMENT: yazmin knee PERIPHERAL IV DATA: Not applicable SIGNED BY: ZACH Momin January 19, 2024 9:11 AM [facility] CNPN Telephone (JOSIANENA) ----- CADEN LLAMAS ([id number]) 1955 F Date Time Provider Department 01/19/24 MAKAYLA BRADLEY During your visit today, we recorded the following information about you: George Edmond 01/19/2024 9:45 AM Signed Patient has been identified by name and date of : Yes, Provider Dr. bradley Date 01/19/2024 Time 9:44am Type of form: Short Term Disability Form received via: Walk in When form is completed, fax form to fax number provided. Form has been forwarded to: PSR / Med Sec Clover Mckay, SANTOS 01/26/2024 8:07 AM Signed Patient calling to see if forms were received Please advised Karri Miranda 01/26/2024 10:02 AM Signed Forms completed and faxed 01/22/24. Detailed message left for the patient. Allergies As of Date: 01/19/2024 Noted Allergy Reaction CATS 02/20/2012 7 - Swelling LATEX 02/20/2012 2 - Rash LISINOPRIL 10/27/2018 7 - Swelling Comments: Tongue swells up PERCOCET (OXYCODONE-ACETAMINOPHEN) 10/20/2018 9 - Itching Date Reviewed: 01/08/2024 Reviewed by: Elli Bland OCCA - Fully Assessed Reason for Visit: Forms [913] Prescriptions as of 01/26/2024 - ergocalciferol, vitamin D2, (VITAMIN D2 ORAL) Take by mouth. - omeprazole (PRILOSEC) 40 mg capsule Take 1 capsule by mouth once daily. - gabapentin (NEURONTIN) 800 mg tablet Take 1 tablet by mouth three times a day for 180 days. - amLODIPine (NORVASC) 5 mg tablet Take 1 tablet by mouth once daily. - carvedilol (COREG) 12.5 mg tablet 1 tablet two times a day with meals. - traZODone (DESYREL) 50 mg tablet Take 1 tablet by mouth daily at bedtime. - amLODIPine (NORVASC) 2.5 mg tablet take 1 tablet by mouth every day - ergocalciferol 50,000 unit capsule (VITAMIN D2, DRISDOL) Take 1 capsule by mouth one time a week. - meclizine (ANTIVERT) 25 mg tab Take 25 mg by mouth. - albuterol HFA (PROAIR HFA) 90 mcg/actuation inhaler Inhale 1 Puff as instructed every 4 hours as needed. - ferrous sulfate 325 mg (65 mg iron) tablet Take 325 mg by mouth daily with breakfast. - CPAP Problem List As Of Date 01/19/2024 Noted Resolved Climacteric [N95.1] 03/23/2012 Arthritis of knee, left [M17.12] 10/21/2012 10/20/2018 Right shoulder injury [S49.91XA] 10/21/2012 10/20/2018 Hypertension [I10] 10/21/2012 Type II or unspecified type diabetes mellitus w*10/21/2012 10/20/2018 H/O Pulmonary embolism (HCC) [I26.99] 12/13/2012 04/16/2023 Hyperlipidemia with target low density lipoprot*02/25/2013 Arthritis of right knee [M17.11] 05/21/2013 Rotator cuff disorder [M67.919] 05/21/2013 10/20/2018 Urinary incontinence [R32] 10/04/2015 Lower urinary tract symptoms (LUTS) [R39.9] 10/04/2015 H/O Brain Aneurysm [I67.1] 10/20/2018 H/O Stroke (HCC) [I63.9] 10/20/2018 Asthma [J45.909] 10/20/2018 Diabetes mellitus type 2, uncomplicated (HCC) [*10/20/2018 Peripheral neuropathy [G62.9] 10/20/2018 WEISS (dyspnea on exertion) [R06.09] 10/20/2018 Chest pain of uncertain etiology [R07.9] 10/20/2018 DONAY (acute kidney injury) (HCC) [N17.9] 10/20/2018 Anemia [D64.9] 10/20/2018 Anxiety [F41.9] 10/20/2018 Morbidly obese (HCC) [E66.01] 10/20/2018 RUTH (obstructive sleep apnea) [G47.33] 10/20/2018 S/P total knee replacement [Z96.659] 10/27/2018 Post-traumatic osteoarthritis of right shoulder*08/02/2019 Rotator cuff syndrome of left shoulder [M75.102]11/02/2019 Atrial fibrillation (HCC) [I48.91] 04/16/2023 Encounter Status:Closed by GEORGE EDMOND on 01/20/24 Normal [facility] CT KNEE WO IVCON LTon 2023 CT KNEE WO IVCON LT * * *Final Report* * * DATE OF EXAM: Jan 19 2024 10:54AM [facility] [place] KNEE WO IVCON LT / PROCEDURE REASON: multiple diagnoses * * * * Physician Interpretation * * * * EXAMINATION: CT KNEE WO IVCON LT PATIENT/TECHNOLOGIST PROVIDED HISTORY: [facility] KNEE CLINICAL HISTORY: 69 years old Female with Primary osteoarthritis of left knee. Preoperative testing. [facility] protocol for robotic assisted left total knee arthroplasty TECHNIQUE: CT LEFT knee without contrast [facility] protocol, knee 0.62 mm axial slices, hip and ankle 2.5 mm axial slices obtained for the purposes of presurgical planning. CT Radiation dose: Integrated Dose-length product (DLP) for this visit = 1297 mGy*cm. CT Dose Reduction Employed: Automated exposure control(AEC) and iterative recon COMPARISON: Radiographs 11/30/2023 RESULT: Limited CT images for the purposes of presurgical planning. Left knee: Tricompartmental osteoarthritis, severe in the medial compartment and moderate-severe in the lateral compartment. Small Bhatia's cyst. Left hip: LEFT hip joint space is maintained. Mild degenerative change RIGHT hip. Sigmoid diverticulosis. Hysterectomy. Left ankle and imaged foot: Calcaneal spurs. Security Controls Assessor: Right total knee arthroplasty. IMPRESSION: Limited CT images for the purposes of presurgical planning. Head Girls Golf Coach: ROBB Transcribe Date/Time: Jan 19 2024 5:19P Dictated by : TASHIA FLEMING, DO This examination was interpreted and the report reviewed and electronically signed by: TASHIA FLEMING DO on Jan 19 2024 5:23PM EST [id number] Normal [facility] CT Knee - left WO contraston 01-19-2024 IMPRESSION: Limited CT images for the purposes of presurgical planning. Head Girls Golf Coach: ROBB Transcribe Date/Time: Jan 19 2024 5:19P Dictated by : TASHIA FLEMING DO This examination was interpreted and the report reviewed and electronically signed by: TASHIA FLEMING DO on Jan 19 2024 5:23PM EST [facility] * * *Final Report* * * DATE OF EXAM: Jan 19 2024 10:54AM [facility] KNEE WO IVCON LT / PROCEDURE REASON: multiple diagnoses * * * * Physician Interpretation * * * * EXAMINATION: CT KNEE WO IVCON LT PATIENT/TECHNOLOGIST PROVIDED HISTORY: [facility] KNEE CLINICAL HISTORY: 69 years old Female with Primary osteoarthritis of left knee. Preoperative testing. [facility] protocol for robotic assisted left total knee arthroplasty TECHNIQUE: CT LEFT knee without contrast [facility] protocol, knee 0.62 mm axial slices, hip and ankle 2.5 mm axial slices obtained for the purposes of presurgical planning. CT Radiation dose: Integrated Dose-length product (DLP) for this visit = 1297 mGy*cm. CT Dose Reduction Employed: Automated exposure control(AEC) and iterative recon COMPARISON: Radiographs 11/30/2023 RESULT: Limited CT images for the purposes of presurgical planning. Left knee: Tricompartmental osteoarthritis, severe in the medial compartment and moderate-severe in the lateral compartment. Small Bhatia's cyst. Left hip: LEFT hip joint space is maintained. Mild degenerative change RIGHT hip. Sigmoid diverticulosis. Hysterectomy. Left ankle and imaged foot: Calcaneal spurs. Security Controls Assessor: Right total knee arthroplasty. [facility] Provider, Drew Jimenez - 01/19/2024 * * *Final Report* * * DATE OF EXAM: Jan 19 2024 10:54AM [facility] [place] KNEE WO IVCON LT / PROCEDURE REASON: multiple diagnoses * * * * Physician Interpretation * * * * EXAMINATION: CT KNEE WO IVCON LT PATIENT/TECHNOLOGIST PROVIDED HISTORY: [facility] CLINICAL HISTORY: 69 years old Female with Primary osteoarthritis of left knee. Preoperative testing. [facility] protocol for robotic assisted left total knee arthroplasty TECHNIQUE: CT LEFT knee without contrast [facility] protocol, knee 0.62 mm axial slices, hip and ankle 2.5 mm axial slices obtained for the purposes of presurgical planning. CT Radiation dose: Integrated Dose-length product (DLP) for this visit = 1297 mGy*cm. CT Dose Reduction Employed: Automated exposure control(AEC) and iterative recon COMPARISON: Radiographs 11/30/2023 RESULT: Limited CT images for the purposes of presurgical planning. Left knee: Tricompartmental osteoarthritis, severe in the medial compartment and moderate-severe in the lateral compartment. Small Bhatia's cyst. Left hip: LEFT hip joint space is maintained. Mild degenerative change RIGHT hip. Sigmoid diverticulosis. Hysterectomy. Left ankle and imaged foot: Calcaneal spurs. Security Controls Assessor: Right total knee arthroplasty. IMPRESSION IMPRESSION: Limited CT images for the purposes of presurgical planning. Head Girls Golf Coach: ROBB Transcribe Date/Time: Jan 19 2024 5:19P Dictated by : TASHIA FLEMING DO This examination was interpreted and the report reviewed and electronically signed by: TASHIA FLEMING DO on Jan 19 2024 5:23PM EST [facility] Radiology Study observation (narrative) [facility] CT Knee - left WO contrastOr dered By: Drew Provider on 01-19-2024 [facility] Heath 01-13-2024 KYARA Telephone (AK2E) ----- CADEN LLAMAS ([id number]) 1955 F Date Time Provider Department 01/13/24 MAKAYLA BRADLEY During your visit today, we recorded the following information about you: Al Barreto PSS 02/02/2024 6:12 AM Addendum TOTAL JOINT COMPLETE CARE PROGRAM PRE-OPERATIVE TEACHING Service Date: 01/13/2024 Service Time: 11:05 AM Date of : 1955 Gender: female Date of Surgery: 02/02/24 Procedure: Left Total Knee replacement Complete Care Program was discussed with the patient: Analog Device Designer Identification: Patient identified a rn critical care to help when discharged to home: spouse Home Environment: Home Layout: 2 story, Entry Steps: 4 with rail, Bedroom Location: 2nd floor, Bathroom Location: 2nd floor, and tub shower. Pt has walker, cane, raised toilet seat. Discussed with patient importance of attending joint education class and provided date and times of class: YES Patient declined. TKA in past. Patient received Joint Education Binder: Yes Plans discharge home with [facility]. SIGNATURE: JEAN CLAUDE Johns PATIENT NAME: Caden Llamas DATE: January 13, 2024 TIME: 10:57 AM Allergies As of Date: 01/13/2024 Noted Allergy Reaction CATS 02/20/2012 7 - Swelling LATEX 02/20/2012 2 - Rash LISINOPRIL 10/27/2018 7 - Swelling Comments: Tongue swells up PERCOCET (OXYCODONE-ACETAMINOPHEN) 10/20/2018 9 - Itching Date Reviewed: 01/08/2024 Reviewed by: Elli Bland OCCA - Fully Assessed Reason for Visit: Pre-Op Teaching [134] Prescriptions as of 02/02/2024 - mupirocin (BACTROBAN) 2 % ointment Apply 0.5 inch with cotton swab (Q-tip) to each nostril in the morning and evening for 5 days prior to and including day of surgery. - omeprazole (PRILOSEC) 40 mg capsule Take 1 capsule by mouth once daily. - gabapentin (NEURONTIN) 800 mg tablet Take 1 tablet by mouth three times a day for 180 days. - amLODIPine (NORVASC) 5 mg tablet Take 1 tablet by mouth once daily. - carvedilol (COREG) 12.5 mg tablet 1 tablet two times a day with meals. - traZODone (DESYREL) 50 mg tablet Take 1 tablet by mouth daily at bedtime. - amLODIPine (NORVASC) 2.5 mg tablet take 1 tablet by mouth every day - ergocalciferol 50,000 unit capsule (VITAMIN D2, DRISDOL) Take 1 capsule by mouth one time a week. - meclizine (ANTIVERT) 25 mg tab Take 25 mg by mouth. - albuterol HFA (PROAIR HFA) 90 mcg/actuation inhaler Inhale 1 Puff as instructed every 4 hours as needed. - ferrous sulfate 325 mg (65 mg iron) tablet Take 325 mg by mouth daily with breakfast. - CPAP Facility-Administered Medications as of 02/02/2024 - acetaminophen 1,000 mg tab(s) (TYLENOL) - celecoxib 200 mg cap(s) (CeleBREX) - scopolamine 1 mg over 3 days 1 Patch (TRANSDERM-SCOP) - midazolam (PF) 2 mg injection (VERSED) - lidocaine (PF) 10 mg/mL (1 %) 1-2 mg injection (XYLOCAINE) - lactated ringers iv infusion - NaCl 0.9% iv flush bag - ceFAZolin iv piggyback 2 g in D5W (iso-osmotic) 100 mL (ANCEF) - tranexamic acid (CYKLOKAPRON) in NaCl 0.7% 1,000 mg 100 mL - tranexamic acid (CYKLOKAPRON) in NaCl 0.7% 1,000 mg 100 mL - ropivacaine 2.46 mg/mL-EPINEPHrine 0.005 mg/mL-cloNIDine 0.0008 mg/mL-ketorolac 0.3 mg/mL 50 mL injection (R.E.C.K.) Problem List As Of Date 01/13/2024 Noted Resolved Climacteric [N95.1] 03/23/2012 Arthritis of knee, left [M17.12] 10/21/2012 10/20/2018 Right shoulder injury [S49.91XA] 10/21/2012 10/20/2018 Hypertension [I10] 10/21/2012 Type II or unspecified type diabetes mellitus w*10/21/2012 10/20/2018 H/O Pulmonary embolism (HCC) [I26.99] 12/13/2012 04/16/2023 Hyperlipidemia with target low density lipoprot*02/25/2013 Arthritis of right knee [M17.11] 05/21/2013 Rotator cuff disorder [M67.919] 05/21/2013 10/20/2018 Urinary incontinence [R32] 10/04/2015 Lower urinary tract symptoms (LUTS) [R39.9] 10/04/2015 H/O Brain Aneurysm [I67.1] 10/20/2018 H/O Stroke ([facility]) [I63.9] 10/20/2018 Asthma [J45.909] 10/20/2018 Diabetes mellitus type 2, uncomplicated (HCC) [*10/20/2018 Peripheral neuropathy [G62.9] 10/20/2018 WEISS (dyspnea on exertion) [R06.09] 10/20/2018 Chest pain of uncertain etiology [R07.9] 10/20/2018 DONYA (acute kidney injury) (HCC) [N17.9] 10/20/2018 Anemia [D64.9] 10/20/2018 Anxiety [F41.9] 10/20/2018 Morbidly obese ([facility]) [E66.01] 10/20/2018 RUTH (obstructive sleep apnea) [G47.33] 10/20/2018 S/P total knee replacement [Z96.659] 10/27/2018 Post-traumatic osteoarthritis of right shoulder*08/02/2019 Rotator cuff syndrome of left shoulder [M75.102]11/02/2019 Atrial fibrillation ([facility]) [I48.91] 04/16/2023 Encounter Status:Closed by AL BARRETO on 01/13/24 [facility] 01-11-2024 CNPN Telephone (ORMDNA) ----- CADEN LLAMAS ([id number]) 1955 F Date Time Provider Department 01/11/24 MAKAYLA BRADLEY ORSRINIVASAN During your visit today, we recorded the following information about you: Karri Miranda 01/11/2024 1:[address] scan order and schedule for 02/02/24 Lt tka yazmin. Melanie Magana PA-C 01/11/2024 4:13 PM Signed Order is in epic. JACY Willis Danielle 01/12/2024 8:27 AM Signed LvM and sent a mychart message for patient to call back and schedule ct prior to scan Leti Alvarez 01/15/2024 9:55 AM Signed Lvm for pts luis for to call back to schedule YAZMIN CT ab Allergies As of Date: 01/11/2024 Noted Allergy Reaction CATS 02/20/2012 7 - Swelling LATEX 02/20/2012 2 - Rash LISINOPRIL 10/27/2018 7 - Swelling Comments: Tongue swells up DELETED: PERCOCET (OXYCODONE-ACET* 9 9 - Itching Date Reviewed: 01/08/2024 Reviewed by: Elli Bland OCCA - Fully Assessed Reason for Visit: Appointment [186] Primary Visit Diagnosis:Primary osteoarthritis of left knee [M17.12] Other Visit Diagnosis:Preoperative testing [Z01.818] Order(s):CT KNEE WO IVCON LEFT [[id number]] Order #: [id number] FUTURE Prescriptions as of 02/03/2024 - mupirocin (BACTROBAN) 2 % ointment Apply 0.5 inch with cotton swab (Q-tip) to each nostril in the morning and evening for 5 days prior to and including day of surgery. - omeprazole (PRILOSEC) 40 mg capsule Take 1 capsule by mouth once daily. - gabapentin (NEURONTIN) 800 mg tablet Take 1 tablet by mouth three times a day for 180 days. - amLODIPine (NORVASC) 5 mg tablet Take 1 tablet by mouth once daily. - carvedilol (COREG) 12.5 mg tablet 1 tablet two times a day with meals. - traZODone (DESYREL) 50 mg tablet Take 1 tablet by mouth daily at bedtime. - amLODIPine (NORVASC) 2.5 mg tablet take 1 tablet by mouth every day - ergocalciferol 50,000 unit capsule (VITAMIN D2, DRISDOL) Take 1 capsule by mouth one time a week. - meclizine (ANTIVERT) 25 mg tab Take 25 mg by mouth. - albuterol HFA (PROAIR HFA) 90 mcg/actuation inhaler Inhale 1 Puff as instructed every 4 hours as needed. - ferrous sulfate 325 mg (65 mg iron) tablet Take 325 mg by mouth daily with breakfast. - CPAP Facility-Administered Medications as of 02/03/2024 - oxyCODONE IR 5-10 mg tab(s) (ROXICODONE) - scopolamine - VERIFY patch - scopolamine - REMOVE PATCH - carvedilol 12.5 mg tab(s) (COREG) - gabapentin 800 mg cap(s) (NEURONTIN) - meclizine 25 mg tab(s) (ANTIVERT) - albuterol 2.5 mg /3 mL (0.083 %) 2.5 mg (PROVENTIL) - amLODIPine 5 mg tab(s) (NORVASC) - ferrous sulfate 325 mg tab(s) - pantoprazole DR 40 mg tab(s) (PROTONIX) - traZODone 50 mg tab(s) (DESYREL) - acetaminophen 1,000 mg tab(s) (TYLENOL) - ondansetron orally disintegrating 4 mg tab(s) (ZOFRAN ODT) - ondansetron (PF) 4 mg injection (ZOFRAN) - magnesium hydroxide 400 mg/5 mL 30 mL (MOM) - bisacodyl EC 10 mg tab(s) (DULCOLAX) - aluminum-magnesium hydroxide-simethicone 200-200-20 mg/5 mL 30 mL - ascorbic acid (vitamin C) 500 mg tab(s) (VITAMIN C) - docusate sodium 100 mg cap(s) (COLACE) - senna 17.2 mg tab(s) (SENOKOT) - aspirin, enteric coated 81 mg tab(s) - lactated ringers iv infusion - HYDROmorphone 0.4 mg injection (DILAUDID) - keTORolac 15 mg injection (Toradol) Problem List As Of Date 01/11/2024 Noted Resolved Climacteric [N95.1] 03/23/2012 Arthritis of knee, left [M17.12] 10/21/2012 10/20/2018 Right shoulder injury [S49.91XA] 10/21/2012 10/20/2018 Hypertension [I10] 10/21/2012 Type II or unspecified type diabetes mellitus w*10/21/2012 10/20/2018 H/O Pulmonary embolism (HCC) [I26.99] 12/13/2012 04/16/2023 Hyperlipidemia with target low density lipoprot*02/25/2013 Arthritis of right knee [M17.11] 05/21/2013 Rotator cuff disorder [M67.919] 05/21/2013 10/20/2018 Urinary incontinence [R32] 10/04/2015 Lower urinary tract symptoms (LUTS) [R39.9] 10/04/2015 H/O Brain Aneurysm [I67.1] 10/20/2018 H/O Stroke (HCC) [I63.9] 10/20/2018 Asthma [J45.909] 10/20/2018 Diabetes mellitus type 2, uncomplicated (HCC) [*10/20/2018 Peripheral neuropathy [G62.9] 10/20/2018 WEISS (dyspnea on exertion) [R06.09] 10/20/2018 Chest pain of uncertain etiology [R07.9] 10/20/2018 DONYA (acute kidney injury) (HCC) [N17.9] 10/20/2018 Anemia [D64.9] 10/20/2018 Anxiety [F41.9] 10/20/2018 Morbidly obese ([facility]) [E66.01] 10/20/2018 RUTH (obstructive sleep apnea) [G47.33] 10/20/2018 S/P total knee replacement [Z96.659] 10/27/2018 Post-traumatic osteoarthritis of right shoulder*08/02/2019 Rotator cuff syndrome of left shoulder [M75.102]11/02/2019 Atrial fibrillation ([facility]) [I48.91] 04/16/2023 Encounter Status:Closed by KARRI MIRANDA on 02/03/24 [facility] 01-08-2024 CNOV Office Visit (ORMDNA ) ----- CADEN LLAMAS ([id number]) 1955 F Date Time Provider Department 01/08/24 2:00 PM MAKAYLA BRADLEY During your visit today, we recorded the following information about you: Makayla Bradley MD 02/04/2024 12:55 PM Signed CONSULT ORTHOPAEDIC: KNEE PRIMARY CARE PHYSICIAN: Moises Malcolm APRN.HUMAN MACHINE INTERFACE ENGINEER REFERRING PROVIDER: No referring provider defined for this encounter. ASSESSMENT AND PLAN Impression: Left Knee Severe Degenerative Osteoarthritis, Primary Diagnoses: (M17.12) Primary osteoarthritis of left knee (primary encounter diagnosis) Based upon the evaluation today and after discussions with Caden Llamas, Caden Llamas has significant, worsening pain at the knee. This pain is increased with activity and weight bearing, and interferes with activities of daily living. These symptoms have continued despite a number of non-surgical measures, including a trial of oral pain medication and attempted physical therapy/ structured exercise program and/or use of an assistive device/ bracing (for at least 12 weeks unless the patient was unable to tolerate these measures as discussed above). At this point, the patient will not benefit from further PT due to the severity of their condition. The patient's physical examination is consistent with limitations in range of motion, pain with passive range of motion, crepitus, and effusion/ synovitis. These examination findings are corroborated by imaging findings of joint space narrowing, periarticular osteophyte formation, and subchondral sclerosis. The patient has been treated by the practice and all reasonable treatments have failed to control the disease, which causes significant pain and limits activities of daily living. The patient has failed conservative treatment and joint replacement surgery was discussed and agreed upon by both provider and patient. We will proceed with surgical management to improve function and relieve pain refractory to non-surgical measures. Left Primary Total Knee Arthroplasty as evidenced by progressive symptoms. Progressive Symptoms Include: Pain impacting sleep or causing fatigue Pain impacting work Pain worsened by weight bearing Pain effecting living situation Pain limiting ability to stay fit and healthy Unable to ambulate 2 blocks without significant pain and dysfunction . Surgery Details Date and Location: At [facility] on date to be determined. Implants: [place] Robotic: Yes Predicted LOS: 2 days (Inpatient candidate) Informed consent obtained in the office today. The risks and benefits of surgery were discussed at length including but not limited to the risks of infection, bleeding, nerve or blood vessel injury, deep venous thrombosis, pulmonary embolism, arthrofibrosis, reflex sympathetic dystrophy, , paralysis, knee or patellar dislocation, extensor mechanism injury, bone fracture, component loosening or failure requiring re-operation or amputation. Informed consent was obtained and the patient was scheduled for surgery. We also discussed fixation strategies including cement and cementless fixation and advantages and disadvantages of each. We discussed the details of the surgery as well as rehabilitation. All questions were answered, and the patient wishes to proceed with surgery.. The patient has been ordered: Office Visit on 01/08/24 [facility] [employer] cyclobenzaprine (FLEXERIL) 10 mg tablet No orders placed today. CONSULTS: IMPACT/PACE Consult for preoperative clearance. Total Joint Arthroplasty: Risk Calculator Caden Llamas has a 23.83% chance of NOT returning home at discharge for a Primary total Knee replacement. Caden's estimated Length of Stay is 2 days (Inpatient candidate). Caden's 30 day chance of readmission is 4.46%. Readmission Probability 4.46 % (within 30 days following surgery) Estimated LOS 2 days Discharge Disposition Probability D/C to Home 76.17 % D/C to SNF 23.83 % These calculations are based on the following factors: - 69 years of age - sex is not male - BMI of 40.77 kg/m2 - NarxCare score of 201 - 1 hospitalizations in the last 12 months - no history of heart disease - history of diabetes - no history of COPD - history of anemia - preoperative ambulation: impaired community distances - 5 step(s) to enter home - bed location is NOT on the first floor - bath location is NOT on the first floor - caregiver is consistent - home is not more than 150 miles away - PROMIS-10 Mental Health T score 41-49 - Marital status: Risk Factors for Total Knee Arthroplasty (TKA) Major Risk Factors Obesity High Risk High: BMI > 40 Moderate: BMI 30-40 Normal: BMI < 30 Diabetes Moderate Risk High: A1C > 8 Moderate: A1C 7-8 Normal: A1C < 7 Hx of DVT / PE High Risk High: dx of D (more content not included)... Normal [facility] ALBUMIN/CREATININE RATIO, UR INEon 12-08-2023 Albumin Unsp time DL <= 20 mg/L (U) [Mass/Time] 12.6 mg/L [facility] Albumin/Creatinine (U) [Mass ratio] 5 mg/g NINF - 30 mg/g [facility] Comment on above: Adult Male and Femal e Nephrotic Criteria: <30 mg/g is considered normal to mildly increased 30-300 mg/g is considered moderately increased >300 mg/g is considered severely increased KDIGO. (2013). KDIGO 2012 Clinical Practice Guideline for the Evaluation and Management of Chronic Kidney Disease. Official Journal of the International Society of Nephrology, 3(1), 1-150. Creatinine (U) [Mass/Vol] 229.2 mg/dL 42.2 - 237.9 mg/dL [facility] Large Joint Arthro/Inj: L kn ee jointon 11-30-2023 Makayla Bradley MD 11/30/2023 3:08 PM Large Joint Arthro/Inj: L knee joint Informed Consent Consent Obtained: Verbal [place] Protocol A moment to CARE was completed. SIGN IN Personnel directly involved with the procedure wore the appropriate PPE. Special Equipment: N/A Patient/Surrogate Stated/Verified: Patient name, Date of , Relevant allergies and Intended procedure TIME OUT Intended patient and procedure match the source document(s). Consent documented and matches the intended procedure. Relevant labs, photos, and/or imaging studies have been reviewed. Correct side/site marked and visible. Medications required for procedure verified. No fire risk assessment and interventions applicable. No implant(s) inserted. 11/30/2023 2:41 PM The procedure site was prepped in the usual sterile fashion. Site: L knee joint Medications: 12 mg betamethasone acetate-betamethasone sodium phosphate 6 mg/mL Anesthetics: 4 mL lidocaine (PF) 10 mg/mL (1 %) Outcome: Tolerated well, no immediate complications Post-injection instructions were reviewed with the patient and the patient voiced understanding of these instructions. SIGN OUT No specimen collected. No instruments, equipment or retained foreign bodies applicable. Post-procedure follow-up management communicated and Plan of Care Visit completed when applicable [facility] XR KNEE 3V AP/LAT/BISMARK BILon 11-30-2023 XR KNEE 3V AP/LAT/BISMARK ADRIANE * * *Final Report* * * DATE OF EXAM: Nov 30 2023 2:20PM RONAL 5635 - XR KNEE 3V AP/LAT/BISMARK ADRIANE / PROCEDURE REASON: multiple diagnoses * * * * Physician Interpretation * * * * PROCEDURE: Bilateral knees INDICATION: Pain in both knees, unspecified chronicity TECHNIQUE: XR KNEE 3V AP/LAT/BISMARK ADRIANE COMPARISON: 09/05/2020 FINDINGS: Right: The total knee arthroplasty remains in satisfactory position without evidence for loosening. Heterotopic ossification at the inferior pole of the patella, not present previously. No periprostatic fracture or significant joint effusion. Left: Significant medial joint compartment narrowing with mild tricompartment spur formation, greater than previous. No fracture or significant joint effusion. IMPRESSION: 1. Stable right TKA 2. Progressive left knee osteoarthrosis Head Girls Golf Coach: [facility] Transcribe Date/Time: Nov 30 2023 3:04P Dictated by : NATHAN BRADLEY MD This examination was interpreted and the report reviewed and electronically signed by: NATHAN BRADLEY MD on Nov 30 2023 3:05PM EST [id number] Normal [facility] XR Knee - bilateral 3 Viewso n 11-30-2023 * * *Final Report* * * DATE OF EXAM: Nov 30 2023 2:20PM O 5635 - XR KNEE 3V AP/LAT/BISMARK ADRIANE / PROCEDURE REASON: multiple diagnoses * * * * Physician Interpretation * * * * PROCEDURE: Bilateral knees INDICATION: Pain in both knees, unspecified chronicity TECHNIQUE: XR KNEE 3V AP/LAT/BISMARK ADRIANE COMPARISON: 09/05/2020 FINDINGS: Right: The total knee arthroplasty remains in satisfactory position without evidence for loosening. Heterotopic ossification at the inferior pole of the patella, not present previously. No periprostatic fracture or significant joint effusion. Left: Significant medial joint compartment narrowing with mild tricompartment spur formation, greater than previous. No fracture or significant joint effusion. [facility] Provider, [facility] - 11/30/2023 * * *Final Report* * * DATE OF EXAM: Nov 30 2023 2:20PM MDO 5635 - XR KNEE 3V AP/LAT/BISMARK ADRIANE / PROCEDURE REASON: multiple diagnoses * * * * Physician Interpretation * * * * PROCEDURE: Bilateral knees INDICATION: Pain in both knees, unspecified chronicity TECHNIQUE: XR KNEE 3V AP/LAT/BISMARK ADRIANE COMPARISON: 09/05/2020 FINDINGS: Right: The total knee arthroplasty remains in satisfactory position without evidence for loosening. Heterotopic ossification at the inferior pole of the patella, not present previously. No periprostatic fracture or significant joint effusion. Left: Significant medial joint compartment narrowing with mild tricompartment spur formation, greater than previous. No fracture or significant joint effusion. IMPRESSION IMPRESSION: 1. Stable right TKA 2. Progressive left knee osteoarthrosis Head Girls Golf Coach: ROBB Transcribe Date/Time: Nov 30 2023 3:04P Dictated by : NATHAN BRADLEY MD This examination was interpreted and the report reviewed and electronically signed by: NATHAN BRADLEY MD on Nov 30 2023 3:05PM EST [facility] Radiology Study observation (narrative) [facility] XR Knee - bilateral 3 ViewsO rdered By: [facility] Provider on 11-30-2023 [facility] HEMOGLOBIN A1C (POC)on 10-25 HbA1c (Bld) [Mass fraction] 5.9 % Abnormal 4.3 - 5.6 % [facility] 36on 10-06-2023 [address] [facility] 36 Called and it went straight to [facility] with phone # requesting return call. Normal [facility] 36 New patient Which knee? Previous injection? Surgery history? Will call after 8am to inquire about scheduling. Normal [facility] 36on 10-05-2023 36 Name of Caller: Sarah vo Contact Reason for Appointment: Self Referral - Knee issues - wants to see about getting cortisone shots before Surgery becomes an option Office Name: Ortho Medication Refills need, if any: N/A Medication Name: N/A [facility] Emergency Department Summary on 09-19-2023 Emergency Department Summary [facility] Medical Records Department [address] [place] [id number] Emergency Department Summary 09/19/23 MR#: [id number] Acct: [id number] Name: RIGOCHACECADEN Rep #: [id number] : 1955 68 From: Jenelle Luis MD PCP: Care Physician,No Primary Status:DEP ER Location: ED HPI History of Present Illness Chief Complaint: Lower Extremity Injury Detail of Chief Complaint: Left knee injury Informant: patient Occured/Mechanism Mechanism/Context: Yes fall Onset/Context/Timing Onset: Weeks (3 weeks ago) Narrative Narrative: Patient presents secondary to continued left knee pain after a fall 3 weeks ago. She fell striking the anterior knee. She complains of focal pain to this area. She states if she does not get up and walk every 2 hours it gets very stiff. At night she feels like it goes numb. She called her orthopedic doctor and Teran to be seen but cannot get an appointment until October. [facility] Medical History Acute bronchitis, unspecified Acute sinusitis, unspecified Anxiety and depression Contact with or suspected exposure to other viral communicable disease Contusion of left elbow, initial encounter Encounter for screening for COVID-19 Essential hypertension History of DVT (deep vein thrombosis) History of pulmonary embolism History of stroke Hyperlipidemia RUTH (obstructive sleep apnea) Paroxysmal atrial fibrillation Paroxysmal atrial flutter Type 2 diabetes mellitus Urinary tract infection Home Medications amlodipine 5 mg tablet 10 mg PO DAILY BLOOD PRESSURE 10/10/15 [History Last Taken 02/12/23] albuterol sulfate 90 mcg/actuation aerosol inhaler 2 puff inhalation Q4H PRN shortness of breath or wheezing 02/12/23 [History Last Taken 02/11/23] gabapentin 800 mg tablet 800 mg PO DAILY nerve pain 02/12/23 [History Last Taken 02/11/23] atorvastatin 10 mg tablet (Lipitor) 10 mg PO QHS 03/17/23 [History Last Taken Unknown] levofloxacin 500 mg tablet 500 mg PO DAILY #10 tabs 03/30/23 [Rx Last Taken Unknown] amoxicillin 875 mg-potassium clavulanate 125 mg tablet 1 tab PO BID #20 tabs 08/24/23 [Rx Last Taken Unknown] hydrocodone-acetaminophen 5-325mg 5mg-325mg 1 tab PO Q6H PRN PRN Pain 3 days #10 TABLETS 09/19/23 [Rx Last Taken Unknown] Allergy/AdvReac Type Severity Reaction Status Date / Time lisinopril Allergy Unknown Unknown Verified 09/19/23 10:53 latex Allergy Rash Verified 09/19/23 10:53 oxycodone [Oxycodone] AdvReac Itching Verified 09/19/23 10:53 Family History Mother Diabetes Cancer Myocardial infarction Hypertension Father Myocardial infarction Heart disease Hypertension Brother Cancer Hypertension Sister Bipolar disorder Schizophrenia Hypertension Surgical History History of appendectomy History of carpal tunnel release History of cerebral aneurysm repair ( 2012) History of cholecystectomy History of hysterectomy History of shoulder surgery History of total knee replacement Social History Smoking Status: Never smoker alcohol intake: never substance use type: does not use caffeine: Yes Type: carbonated beverages Number of servings: 1 ROS ROS ED Constitutional Constitutional ED: Denies chills or fever(s) ENT ENT ED: Denies rhinorrhea or sore throat Cardiovascular Cardiovascular: Denies chest pain Respiratory/Chest Respiratory/Chest: Denies cough or dyspnea Gastrointestinal Gastrointestinal: Denies abdominal pain, nausea or vomiting Musculoskeletal Musculoskeletal: Reports extremity pain; Denies back pain Integumentary Denies Abrasions or rash Neurologic Neurologic: Reports paresthesias; Denies headache(s) or weakness Psychiatric Psychiatric: Denies anxiety or depression Allergic/Immunologic Allergic/Immunologic ED: Denies lip swelling or urticaria EXAM Physical Exam Const Vital Signs: 09/19/23 10:52 Temperature 96.4 F L Temperature Source Temporal Pulse Rate 95 Respiratory Rate 20 H Blood Pressure 148/117 H Blood Pressure Mean 127 Pulse Ox 100 Oxygen Delivery Method Room Air Positive well nourished and well developed General Appearance ED: well developed HEENT Reports moist mucous membranes Eyes PERRL Chest Wall inspection of chest normal and palpation of chest normal Resp normal respiratory effort and clear to auscultation bilaterally Cardio regular rate and regular rhythm GI non-tender Extremity Extremity Narrative: Mild tenderness to palpation of the anterior right knee. No significant edema. No ecchymosis, abrasions, erythema. Good range of motion at the knee. No calf tenderness o (more content not included)... Normal [facility] Knee 4 or More Viewson 09-18 Knee 4 or More Views [facility] Services [address] [place] [address] Knee 4 or More Views MR#: [id number] Acct: [id number] Name: CADEN LLAMAS Rep #: [id number] : 1955 F 68 From: Chaparrita urias MD PCP: Care Physician,No Primary Status: REG ER Study: Knee 4 or More Views Date of Exam: 09/19/23 Exam# [id number] Ordering Dr: Jenelle Luis MD [id number] HISTORY: injury. TECHNIQUE: XR Knee Complete 4 Views or More. COMPARISON: 07/01/2022. FINDINGS: BONES : No acute fracture identified. Mild degenerative sclerosis and osteophytes of the medial compartment. JOINTS: No dislocation. Moderate-severe medial compartment joint space narrowing and mild lateral compartment joint space narrowing again seen. RAD/Knee 4 or More Views IMPRESSION: No acute fracture or dislocation identified in the left knee. Electronically Signed: Chaparrita Gaytan MD at 11:35 EST Reading Location ID and State: [facility] / [place] Tel , Service support , CC: Dr. Jenelle Luis MD; No Primary Care Physician [employer]: Signed Normal [facility] VITAMIN D 25 HYDROXYon 04-17 25-hydroxyvitamin D3 [Mass/Vol] 12.6 ng/mL Low >=30.0 ng/mL [facility] CBC panel Auto (Bld)on 04-16 Erythrocyte distribution width (RBC) [Ratio] 14.2 % 11.5 - 15.0 % [facility] Hematocrit (Bld) [Volume fraction] 37.0 % 36.0 - 46.0 % [facility] Hemoglobin (Bld) [Mass/Vol] 10.9 g/dL Low 11.5 - 15.5 g/dL [facility] MCH (RBC) [Entitic mass] 26.2 pg 26.0 - 34.0 pg [facility] MCHC (RBC) [Mass/Vol] 29.5 g/dL Low 30.5 - 36.0 g/dL [facility] MCV (RBC) [Entitic vol] 88.9 fL 80.0 - 100.0 fL [facility] Platelet mean volume (Bld) [Entitic vol] 10.7 fL 9.0 - 12.7 fL [facility] Platelets (Bld) [#/Vol] 279 10*3/uL 150 - 400 k/uL [facility] RBC (Bld) [#/Vol] 4.16 10*6/uL 3.90 - 5.2 0 m/uL [facility] WBC (Bld) [#/Vol] 7.59 10*3/uL 3.70 - 11. 00 k/uL [facility] Comprehensive metabolic 2000 panelon 04-16-2023 Albumin [Mass/Vol] 3.7 g/dL Low 3.9 - 4.9 g/dL [facility] ALP [Catalytic activity/Vol] 145 U/L High 34 - 123 U/L [facility] ALT With P-5'-P [Catalytic activity/Vol] 14 U/L 7 - 38 U/L [facility] Anion gap [Moles/Vol] 7 mmol/L Low 9 - 18 mmol/L [facility] AST With P-5'-P [Catalytic activity/Vol] 19 U/L 13 - 35 U/L [facility] Bilirubin [Mass/Vol] 0.3 mg/dL 0.2 - 1 .3 mg/dL [facility] Calcium [Mass/Vol] 8.9 mg/dL 8.5 - 10. 2 mg/dL [facility] Chloride [Moles/Vol] 105 mmol/L 97 - 10 5 mmol/L [facility] CO2 [Moles/Vol] 28 mmol/L 22 - 30 mmol/L [facility] Creatinine [Mass/Vol] 0.97 mg/dL High 0.58 - 0.96 mg/dL [facility] Estimated Glomerular Filtration Rate 63 mL/min/1.73m >=60 mL/min/1.73m [facility] Glucose [Mass/Vol] 87 mg/dL 74 - 99 mg/dL [facility] Potassium [Moles/Vol] 4.4 mmol/L 3.7 - 5.1 mmol/L [facility] Protein [Mass/Vol] 7.2 g/dL 6.3 - 8.0 g/dL [facility] Sodium [Moles/Vol] 140 mmol/L 136 - 144 mmol/L [facility] Urea nitrogen [Mass/Vol] 9 mg/dL 7 - 21 mg/dL [facility] HEPATITIS C ANTIBODY IA WITH CONFIRMATIONon 04-16-2023 HCV Ab Ql (S) Non-Reactive Nonreactive [facility] HbA1c (Bld)on 04-16-2023 Average glucose Estimated from glycated hemoglobin (Bld) [Mass/Vol] 140 mg/dL [facility] HbA1c (Bld) [Mass fraction] 6.5 % High 4.3 - 5.6 % [facility] Lipid 1996 panelon 3 Cholesterol [Mass/Vol] 231 mg/dL High <200 mg/dL [facility] Cholesterol in HDL [Mass/Vol] 63 mg/dL >39 mg/dL [facility] Cholesterol in LDL [Mass/Vol] 137 mg/dL High <100 mg/dL [facility] Cholesterol in LDL/Cholesterol in HDL [Mass ratio] 2.17 {ratio} <2.54 [facility] Cholesterol in VLDL [Mass/Vol] 31 mg/dL High <30 mg/dL [facility] Cholesterol non HDL [Mass/Vol] 168 mg/dL High <130 mg/dL [facility] Cholesterol.total/Cho lesterol in HDL [Mass ratio] 3.67 {ratio} <5.10 [facility] Fasting Time 12 hrs [facility] Triglyceride [Mass/Vol] 156 mg/dL High <150 mg/dL [facility] TSH BLDon 04-16-2023 TSH Qn 0.828 m[IU]/L 0.270 - 4.200 mIU/L [facility] Absolute lymphocyte countOrd ered By: Galileo Fisher on 02-12-2023 Lymphocytes Auto (Unsp spec) [#/Vol] 2.57 10*3/uL 0.83-4.51 [facility] Basophil percentageOrdered B y: Galileo Fisher on 02-12-2023 Basophils/100 WBC (Bld) 0.7 % 0-1 [facility] Chloride [Moles/Vol] 108 mmol/L 98-107 [facility] Eosinophils/100 WBC (Bld) 2.8 % 0-5 [facility] Glucose [Mass/Vol] 113 mg/dL 74-106 [facility] Comment on above: Fasting Glucose resu lt from 100 to 125 mg/dL suggests IMPAIRED HOMEOSTASIS per A.D.A. criteria. Neutrophils (Bld) [#/Vol] 2.7 10*3/uL 2.0-7.7 [facility] Neutrophils/100 WBC (Bld) 44.7 % 47-70 [facility] Potassium [Moles/Vol] 3.7 mmol/L 3.5-5.1 [facility] Sodium [Moles/Vol] 140 mmol/L 136-145 [facility] WBC (Bld) [#/Vol] 6.1 10*3/uL 4.4-11.0 [facility] Blood erythrocytes count (nu mber/volume)Ordered By: Galileo Fisher on 02-12-2023 RBC (Bld) [#/Vol] 4.11 10*6/uL 4.2-5.4 [facility] Blood hemoglobin measurement (mass/volume)Ordered By: Galileo Fisher on 02-12-2023 Hemoglobin (Bld) [Mass/Vol] 11.0 g/dL 12.0-15.0 [facility] Blood lymphocytes/100 leukoc ytesOrdered By: Galileo Fisher on 02-12-2023 Lymphocytes/100 WBC (Bld) 42.0 % 19-41 [facility] Blood monocytes/100 leukocyt esOrdered By: Galileo Fisher on 02-12-2023 Monocytes/100 WBC (Bld) 9.6 % 0-10 [facility] Blood platelet mean volumeOr dered By: Galileo Fisher on 02-12-2023 Platelet mean volume (Bld) [Entitic vol] 9.3 fL 6.2-12.0 [facility] Determination of erythrocyte mean corpuscular volume (MCV)Ordered By: Galileo Fisher on 02-12-2023 MCV (RBC) [Entitic vol] 85.2 fL 81-99 [facility] Hematocrit Auto (Bld) [Volum e fraction]Ordered By: Galileo Fisher on 02-12-2023 Hematocrit (Bld) [Volume fraction] 35.0 % 37-47 [facility] Laboratory - Chemistry and C hemistry - challengeOrdered By: Galileo Fisher on 02-12-2023 CO2 [Moles/Vol] 25.0 mmol/L 21.0-32.0 [facility] Urea nitrogen/Creatinine [Mass ratio] 7.6 mg/mg 10-20 [facility] Laboratory - Hematology and Cell countsOrdered By: Galileo Fisher on 02-12-2023 Erythrocyte distribution width (RBC) [Entitic vol] 41.7 fL 35.1-43.9 [facility] Erythrocyte distribution width (RBC) [Ratio] 13.4 % 11.6-14.6 [facility] Immature granulocytes/100 WBC (Bld) 0.200 % 0.0-0.9 [facility] Comment on above: IG% - Immature Granu locytes (promyelocytes, myelocytes and metamyelocytes) > 1% indicates that a LEFT SHIFT is Present. MCH (RBC) [Entitic mass] 26.8 pg 27.0-32.0 [facility] Nucleated RBC/100 WBC (Bld) [Ratio] 0 % 0-5 [facility] MCHC Auto (RBC) [Mass/Vol]Or dered By: Galileo Fisher on 02-12-2023 MCHC (RBC) [Mass/Vol] 31.4 g/dL 32-36 [facility] No Panel InformationOrdered By: Galileo Fisher on 02-12-2023 Troponin I High Sensitivity 13 pg/mL 3.0-54.0 [facility] Comment on above: Please Note: New Sima t Units and Gender Specific Reference Ranges. For more information see Policy Stat Procedure [place] High Sensitivity Troponin (TNIH) and attachments. Estimated Creatinine Clearance Calc 32.06 ml/min [facility] Estimated GFR (MDRD) Amer 52 mL/min >60 [facility] Comment on above: GFR Calc Estimated GFR (MDRD) Non-Af Amer 43 mL/min >60 [facility] Comment on above: Non- GFR Calc Platelets bldOrdered By: Galileo Fisher on 02-12-2023 Platelets (Bld) [#/Vol] 319 10*3/uL 150-450 [facility] Serum or plasma calcium true urement (mass/volume)Ordered By: Galileo Fisher on 02-12-2023 Calcium [Mass/Vol] 8.7 mg/dL 8.5-10.1 [facility] Serum or plasma creatinine m easurement (mass/volume)Ordered By: Galileo Fisher on 02-12-2023 Creatinine [Mass/Vol] 1.31 mg/dL 0.55-1.02 [facility] Comment on above: The validity of the calculated GFR & GFRAA in patients over 70 years has not been determined. Clinical correlation is essential. Serum or plasma urea nitroge n measurement (mass/volume)Ordered By: Galileo Fisher on 02-12-2023 Urea nitrogen [Mass/Vol] 10 mg/dL 7-18 [facility] Thin prep Papanicolaou smear with manual screeningOrdered By: Galileo Fisher on 02-12-2023 Thin prep Papanicolaou smear with manual screening 7 5-15 [facility] Basophil percentageOrdered B y: Nhan Medellin on 01-05-2023 Basophil percentage 0-5 SEEN /hpf 0-5 [facility] Bilirubin Test strip Ql (U)O rdered By: Nhan Medellin on 01-05-2023 Bilirubin Ql (U) Negative Negative [facility] Culture, urineOrdered By: St nacho Medellin on 01-05-2023 Bacteria identified Cx Nom (U) Positive [facility] Ketones Test strip Ql (U)Ord ered By: Nhan Medellin on 01-05-2023 Ketones Ql (U) Negative Negative [facility] Laboratory - Chemistry and C hemistry - challengeon 01-05-2023 Bilirubin Ql (U) Negative [facility] Glucose Ql (U) Negative [facility] Ketones Ql (U) Trace (5) [facility] pH (U) 7.5 [pH] [facility] Specific gravity (U) [Rel density] 1.010 [facility] Urobilinogen (U) [Mass/Vol] 0.0195296 mg/dL [facility] Laboratory - Hematology and Cell countson 01-05-2023 Hemoglobin Ql (U) Trace [facility] Laboratory - Specimen inform ationon 01-05-2023 Clarity (U) Hazy [facility] Color (U) Leti [facility] Laboratory - Urinalysison Nitrite Ql (U) Negative [facility] Protein Ql (U) Trace [facility] Mucus LM Ql (Urine sed)Order ed By: Nhan Medellin on 01-05-2023 Mucus Ql (Urine sed) 0 SEEN /hpf [facility] Nitrite Test strip Ql (U)Ord ered By: Nhan Medellin on 01-05-2023 Nitrite Ql (U) Negative Negative [facility] No Panel Informationon 01-05 Urine Leukocytes Positive [facility] Protein Test strip Ql (U)Ord ered By: Nhan Medellin on 01-05-2023 Protein Ql (U) 15 mg/dl Negative [facility] Squamous epithelial cells de tection in urine sediment by light microscopyOrdered By: Nhan Medellin on 01-05-2023 Epithelial cells.squamous LM Ql (Urine sed) 5-10 SEEN /hpf 5-10 [facility] Urine blood detectionOrdered By: Nhan Medellin on 01-05-2023 RBC Ql (U) 10 /ul Negative [facility] RBC Ql (U) 0 SEEN /hpf 0-5 [facility] Urine clarityOrdered By: Ramírez Medellin on 01-05-2023 Clarity (U) Sl. Cloudy Clear [facility] Urine color determinationOrd ered By: Nhan Medellin on 01-05-2023 Color (U) Yellow Yellow [facility] Urine glucose detectionOrder ed By: Nhan Medellin on 01-05-2023 Glucose Ql (U) Normal mg/dl Normal [facility] Urine leukocyte esterase det ection by dipstickOrdered By: Nhan Medellin on 01-05-2023 Leukocyte esterase Test strip Ql (U) 25 /ul Negative [facility] Urine pHOrdered By: Nhan vigil on 01-05-2023 pH (U) 6.5 [pH] 5.0 - 8.0 [facility] Urine sediment bacteria coun t by microscopy (number/high power field)Ordered By: Nhan Medellin on 01-05-2023 Bacteria LM.HPF (Urine sed) [#/Area] RARE /hpf None Seen [facility] Urine sediment unidentified crystal count by microscopy (number/high powered field)Ordered By: Nhan Medellin on 01-05-2023 Unidentified crystals LM.HPF (Urine sed) [#/Area] See comment None Seen [facility] Comment on above: [employer] Urine specific gravity measu rementOrdered By: Nhan Medellin on 01-05-2023 Specific gravity (U) [Rel density] 1.015 1.002-1.030 [facility] Urobilinogen Auto test strip Ql (U)Ordered By: Nhan Medellin on 01-05-2023 Urobilinogen Ql (U) 1 mg/dl Normal [facility] Absolute lymphocyte countOrd ered By: Dr. Garcia on 12-11-2022 Lymphocytes Auto (Unsp spec) [#/Vol] 2.25 10*3/uL 0.83-4.51 [facility] Basophil percentageOrdered B y: Dr. Garcia on 12-11-2022 Basophils/100 WBC (Bld) 0.5 % 0-1 [facility] Bilirubin [Mass/Vol] 0.30 mg/dL 0.20-1.00 [facility] Comment on above: For patients on eltr ombopag therapy, use of Dimension [place] TBIL is not recommended. Chloride [Moles/Vol] 108 mmol/L 98-107 [facility] Eosinophils/100 WBC (Bld) 1.1 % 0-5 [facility] Glucose [Mass/Vol] 94 mg/dL 74-106 [facility] Neutrophils (Bld) [#/Vol] 3.7 10*3/uL 2.0-7.7 [facility] Neutrophils/100 WBC (Bld) 55.8 % 47-70 [facility] Potassium [Moles/Vol] 3.7 mmol/L 3.5-5.1 [facility] Protein [Mass/Vol] 7.5 g/dL 6.4-8.2 [facility] Sodium [Moles/Vol] 140 mmol/L 136-145 [facility] WBC (Bld) [#/Vol] 6.7 10*3/uL 4.4-11.0 [facility] Blood erythrocytes count (nu mber/volume)Ordered By: Dr. Garcia on 12-11-2022 RBC (Bld) [#/Vol] 4.22 10*6/uL 4.2-5.4 [facility] Blood hemoglobin measurement (mass/volume)Ordered By: Dr. Garcia on 12-11-2022 Hemoglobin (Bld) [Mass/Vol] 11.9 g/dL 12.0-15.0 [facility] Blood lymphocytes/100 leukoc ytesOrdered By: Dr. Garcia on 12-11-2022 Lymphocytes/100 WBC (Bld) 33.8 % 19-41 [facility] Blood monocytes/100 leukocyt esOrdered By: Dr. Garcia on 12-11-2022 Monocytes/100 WBC (Bld) 8.6 % 0-10 [facility] Blood platelet mean volumeOr dered By: Dr. Garcia on 12-11-2022 Platelet mean volume (Bld) [Entitic vol] 10.1 fL 6.2-12.0 [facility] Determination of erythrocyte mean corpuscular volume (MCV)Ordered By: Dr. Garcia on 12-11-2022 MCV (RBC) [Entitic vol] 89.6 fL 81-99 [facility] Hematocrit Auto (Bld) [Volum e fraction]Ordered By: Dr. Garcia on 12-11-2022 Hematocrit (Bld) [Volume fraction] 37.8 % 37-47 [facility] Laboratory - Chemistry and C hemistry - challengeOrdered By: Dr. Garcia on 12-11-2022 ALP [Catalytic activity/Vol] 144 U/L 45-117 [facility] ALT [Catalytic activity/Vol] 19 U/L 13-56 [facility] CO2 [Moles/Vol] 28.0 mmol/L 21.0-32.0 [facility] Globulin (S) [Mass/Vol] 4.3 g/dL 2.2-4.2 [facility] Urea nitrogen/Creatinine [Mass ratio] 11.2 mg/mg 10-20 [facility] Laboratory - Hematology and Cell countsOrdered By: Dr. Garcia on 12-11-2022 Erythrocyte distribution width (RBC) [Entitic vol] 42.7 fL 35.1-43.9 [facility] Erythrocyte distribution width (RBC) [Ratio] 13.2 % 11.6-14.6 [facility] Immature granulocytes/100 WBC (Bld) 0.200 % 0.0-0.9 [facility] Comment on above: IG% - Immature Granu locytes (promyelocytes, myelocytes and metamyelocytes) > 1% indicates that a LEFT SHIFT is Present. MCH (RBC) [Entitic mass] 28.2 pg 27.0-32.0 [facility] Nucleated RBC/100 WBC (Bld) [Ratio] 0 % 0-5 [facility] MCHC Auto (RBC) [Mass/Vol]Or dered By: Dr. Garcia on 12-11-2022 MCHC (RBC) [Mass/Vol] 31.5 g/dL 32-36 [facility] No Panel InformationOrdered By: Dr. Garcia on 12-11-2022 Estimated GFR (MDRD) Amer 72 mL/min >60 [facility] Comment on above: GFR Calc Estimated GFR (MDRD) Non-Af Amer 60 mL/min >60 [facility] Comment on above: Non- GFR Calc Thyroid Stimulating Hormone (TSH) 0.78 uIU/mL 0.358-3.74 [facility] Platelets bldOrdered By: Dr. Garcia on 12-11-2022 Platelets (Bld) [#/Vol] 312 10*3/uL 150-450 [facility] Serum or plasma albumin true urement (mass/volume)Ordered By: Dr. Garcia on 12-11-2022 Albumin [Mass/Vol] 3.2 g/dL 3.2-5.0 [facility] Serum or plasma albumin/glob ulin mass ratioOrdered By: Dr. Garcia on 12-11-2022 Albumin/Globulin [Mass ratio] 0.7 {ratio} 0.9-2.4 [facility] Serum or plasma calcium true urement (mass/volume)Ordered By: Dr. Garcia on 12-11-2022 Calcium [Mass/Vol] 8.8 mg/dL 8.5-10.1 [facility] Serum or plasma creatinine m easurement (mass/volume)Ordered By: Dr. Garcia on 12-11-2022 Creatinine [Mass/Vol] 0.98 mg/dL 0.55-1.02 [facility] Comment on above: The validity of the calculated GFR & GFRAA in patients over 70 years has not been determined. Clinical correlation is essential. Serum or plasma urea nitroge n measurement (mass/volume)Ordered By: Dr. Garcia on 12-11-2022 Urea nitrogen [Mass/Vol] 11 mg/dL 7-18 [facility] Thin prep Papanicolaou smear with manual screeningOrdered By: Dr. Garcia on 12-11-2022 Thin prep Papanicolaou smear with manual screening 15 U/L 15-37 [facility] Thin prep Papanicolaou smear with manual screening 4 5-15 [facility] Basophil percentageOrdered B y: Dr. Garcia on 09-01-2022 Basophil percentage 2.8 mg/dL 2.5-4.9 [facility] Chloride [Moles/Vol] 105 mmol/L 98-107 [facility] Glucose [Mass/Vol] 101 mg/dL 74-106 [facility] Comment on above: Fasting Glucose resu lt from 100 to 125 mg/dL suggests IMPAIRED HOMEOSTASIS per A.D.A. criteria. Potassium [Moles/Vol] 4.1 mmol/L 3.5-5.1 [facility] Sodium [Moles/Vol] 139 mmol/L 136-145 [facility] Laboratory - Chemistry and C hemistry - challengeOrdered By: Dr. Garcia on 09-01-2022 CO2 [Moles/Vol] 26.0 mmol/L 21.0-32.0 [facility] Magnesium [Mass/Vol] 2.3 mg/dL 1.6-2.6 [facility] Urea nitrogen/Creatinine [Mass ratio] 15.4 mg/mg 10- [facility] No Panel InformationOrdered By: Dr. Garcia on 09-01-2022 Estimated GFR (MDRD) Amer 59 mL/min >60 [facility] Comment on above: GFR Calc Estimated GFR (MDRD) Non-Af Amer 49 mL/min >60 [facility] Comment on above: Non- GFR Calc Serum or plasma calcium true urement (mass/volume)Ordered By: Dr. Garcia on 09-01-2022 Calcium [Mass/Vol] 9.0 mg/dL 8.5-10.1 [facility] Serum or plasma creatinine m easurement (mass/volume)Ordered By: Dr. Garcia on 09-01-2022 Creatinine [Mass/Vol] 1.17 mg/dL 0.55-1.02 [facility] Comment on above: The validity of the calculated GFR & GFRAA in patients over 70 years has not been determined. Clinical correlation is essential. Serum or plasma urea nitroge n measurement (mass/volume)Ordered By: Dr. Garcia on 09-01-2022 Urea nitrogen [Mass/Vol] 18 mg/dL 7-18 [facility] Thin prep Papanicolaou smear with manual screeningOrdered By: Dr. Garcia on 09-01-2022 Thin prep Papanicolaou smear with manual screening 8 5-15 [facility] Absolute lymphocyte countOrd ered By: ED PROVIDER on 08-15-2022 Lymphocytes Auto (Unsp spec) [#/Vol] 2.51 10*3/uL 0.83-4.51 [facility] Basophil percentageOrdered B y: ED PROVIDER on 08-15-2022 Basophils/100 WBC (Bld) 0.5 % 0-1 [facility] Chloride [Moles/Vol] 107 mmol/L 98-107 [facility] Eosinophils/100 WBC (Bld) 2.0 % 0-5 [facility] Glucose [Mass/Vol] 192 mg/dL 74-106 [facility] Comment on above: Fasting Glucose resu lt greater than or equal to 126 mg/dL suggests DIABETES MELLITUS per A.D.A. criteria. Neutrophils (Bld) [#/Vol] 4.7 10*3/uL 2.0-7.7 [facility] Neutrophils/100 WBC (Bld) 58.3 % 47-70 [facility] Potassium [Moles/Vol] 4.1 mmol/L 3.5-5.1 [facility] Comment on above: Slight Hemolysis, Re sult may be falsely increased. Sodium [Moles/Vol] 142 mmol/L 136-145 [facility] WBC (Bld) [#/Vol] 8.0 10*3/uL 4.4-11.0 [facility] Blood erythrocytes count (nu mber/volume)Ordered By: ED PROVIDER on 08-15-2022 RBC (Bld) [#/Vol] 4.33 10*6/uL 4.2-5.4 [facility] Blood hemoglobin measurement (mass/volume)Ordered By: ED PROVIDER on 08-15-2022 Hemoglobin (Bld) [Mass/Vol] 11.8 g/dL 12.0-15.0 [facility] Blood lymphocytes/100 leukoc ytesOrdered By: ED PROVIDER on 08-15-2022 Lymphocytes/100 WBC (Bld) 31.5 % 19-41 [facility] Blood monocytes/100 leukocyt esOrdered By: ED PROVIDER on 08-15-2022 Monocytes/100 WBC (Bld) 7.4 % 0-10 [facility] Blood platelet mean volumeOr dered By: ED PROVIDER on 08-15-2022 Platelet mean volume (Bld) [Entitic vol] 10.5 fL 6.2-12.0 [facility] Determination of erythrocyte mean corpuscular volume (MCV)Ordered By: ED PROVIDER on 08-15-2022 MCV (RBC) [Entitic vol] 88.0 fL 81-99 [facility] Hematocrit Auto (Bld) [Volum e fraction]Ordered By: ED PROVIDER on 08-15-2022 Hematocrit (Bld) [Volume fraction] 38.1 % 37-47 [facility] Laboratory - Chemistry and C hemistry - challengeOrdered By: ED PROVIDER on 08-15-2022 CO2 [Moles/Vol] 25.0 mmol/L 21.0-32.0 [facility] Urea nitrogen/Creatinine [Mass ratio] 18.0 mg/mg 10-20 [facility] Laboratory - Hematology and Cell countsOrdered By: ED PROVIDER on 08-15-2022 Erythrocyte distribution width (RBC) [Entitic vol] 46.1 fL 35.1-43.9 [facility] Erythrocyte distribution width (RBC) [Ratio] 14.4 % 11.6-14.6 [facility] Immature granulocytes/100 WBC (Bld) 0.300 % 0.0-0.9 [facility] Comment on above: IG% - Immature Granu locytes (promyelocytes, myelocytes and metamyelocytes) > 1% indicates that a LEFT SHIFT is Present. MCH (RBC) [Entitic mass] 27.3 pg 27.0-32.0 [facility] Nucleated RBC/100 WBC (Bld) [Ratio] 0 % 0-5 [facility] MCHC Auto (RBC) [Mass/Vol]Or dered By: ED PROVIDER on 08-15-2022 MCHC (RBC) [Mass/Vol] 31.0 g/dL 32-36 [facility] No Panel InformationOrdered By: Dr. Worrell on 08-15-2022 D-Dimer Quantitative (PE/DVT) 0.95 FEU/ug/m 0.27-0.49 [facility] Comment on above: D-Dimer ELEVATED (>0 .49): Additional studies and clinicalassessments are indicated to conclude diagnosis of:Deep Vein Thrombosis (DVT) or Pulmonary Embolism (PE)CRITICAL VALUE VERIFIED. CALLED TO [id number] Elizabeth Mehta.RESULTS READ BACK BY SAME . No Panel InformationOrdered By: ED PROVIDER on 08-15-2022 Estimated Creatinine Clearance Calc 28.39 ml/min [facility] Estimated GFR (MDRD) Amer 44 mL/min >60 [facility] Comment on above: GFR Calc Estimated GFR (MDRD) Non-Af Amer 37 mL/min >60 [facility] Comment on above: Non- GFR Calc Troponin I High Sensitivity 16 pg/mL 3.0-54.0 [facility] Comment on above: Please Note: New Sima t Units and Gender Specific Reference Ranges. For more information see Policy Stat Procedure [place] High Sensitivity Troponin (TNIH) and attachments. Platelets bldOrdered By: ED PROVIDER on 08-15-2022 Platelets (Bld) [#/Vol] 329 10*3/uL 150-450 [facility] Serum or plasma calcium true urement (mass/volume)Ordered By: ED PROVIDER on 08-15-2022 Calcium [Mass/Vol] 8.9 mg/dL 8.5-10.1 [facility] Serum or plasma creatinine m easurement (mass/volume)Ordered By: ED PROVIDER on 08-15-2022 Creatinine [Mass/Vol] 1.50 mg/dL 0.55-1.02 [facility] Comment on above: The validity of the calculated GFR & GFRAA in patients over 70 years has not been determined. Clinical correlation is essential. Serum or plasma urea nitroge n measurement (mass/volume)Ordered By: ED PROVIDER on 08-15-2022 Urea nitrogen [Mass/Vol] 27 mg/dL 7-18 [facility] Thin prep Papanicolaou smear with manual screeningOrdered By: ED PROVIDER on 08-15-2022 Thin prep Papanicolaou smear with manual screening 10 5-15 [facility] Absolute lymphocyte countOrd ered By: Ashleigh Garcia on 07-17-2022 Lymphocytes Auto (Unsp spec) [#/Vol] 3.12 10*3/uL 0.83-4.51 [facility] Basophil percentageOrdered B y: Ashleigh Garcia on 07-17-2022 Basophils/100 WBC (Bld) 0.3 % 0-1 [facility] Chloride [Moles/Vol] 108 mmol/L 98-107 [facility] Eosinophils/100 WBC (Bld) 1.5 % 0-5 [facility] Glucose [Mass/Vol] 122 mg/dL 74-106 [facility] Comment on above: Fasting Glucose resu lt from 100 to 125 mg/dL suggests IMPAIRED HOMEOSTASIS per A.D.A. criteria. Neutrophils (Bld) [#/Vol] 6.9 10*3/uL 2.0-7.7 [facility] Neutrophils/100 WBC (Bld) 62.3 % 47-70 [facility] Potassium [Moles/Vol] 4.1 mmol/L 3.5-5.1 [facility] Sodium [Moles/Vol] 138 mmol/L 136-145 [facility] WBC (Bld) [#/Vol] 11.1 10*3/uL 4.4-11.0 [facility] Blood erythrocytes count (nu mber/volume)Ordered By: Ashleigh Garcia on 07-17-2022 RBC (Bld) [#/Vol] 4.40 10*6/uL 4.2-5.4 [facility] Blood hemoglobin measurement (mass/volume)Ordered By: Ashleigh Garcia on 07-17-2022 Hemoglobin (Bld) [Mass/Vol] 11.9 g/dL 12.0-15.0 [facility] Blood lymphocytes/100 leukoc ytesOrdered By: Ashleigh Garcia on 07-17-2022 Lymphocytes/100 WBC (Bld) 28.0 % 19-41 [facility] Blood monocytes/100 leukocyt esOrdered By: Ashleigh Garcia on 07-17-2022 Monocytes/100 WBC (Bld) 7.4 % 0-10 [facility] Blood platelet mean volumeOr dered By: Ashleigh Garcia on 07-17-2022 Platelet mean volume (Bld) [Entitic vol] 10.0 fL 6.2-12.0 [facility] Determination of erythrocyte mean corpuscular volume (MCV)Ordered By: Ashleigh Garcia on 07-17-2022 MCV (RBC) [Entitic vol] 87.0 fL 81-99 [facility] Hematocrit Auto (Bld) [Volum e fraction]Ordered By: Ashleigh Garcai on 07-17-2022 Hematocrit (Bld) [Volume fraction] 38.3 % 37-47 [facility] Laboratory - Chemistry and C hemistry - challengeOrdered By: Ashleigh Garcia on 07-17-2022 CK [Catalytic activity/Vol] 52 U/L 26-192 [facility] CO2 [Moles/Vol] 25.0 mmol/L 21.0-32.0 [facility] Myoglobin [Mass/Vol] ng/mL 25-58 [facility] Comment on above: Performed at: [place] [id number] Director: Hussein Marley PhD, Phone: [phone] Urea nitrogen/Creatinine [Mass ratio] 19.7 mg/mg 10-20 [facility] Laboratory - Hematology and Cell countsOrdered By: Ashleigh Garcia on 07-17-2022 Erythrocyte distribution width (RBC) [Entitic vol] 45.8 fL 35.1-43.9 [facility] Erythrocyte distribution width (RBC) [Ratio] 14.5 % 11.6-14.6 [facility] Immature granulocytes/100 WBC (Bld) 0.500 % 0.0-0.9 [facility] Comment on above: IG% - Immature Granu locytes (promyelocytes, myelocytes and metamyelocytes) > 1% indicates that a LEFT SHIFT is Present. MCH (RBC) [Entitic mass] 27.0 pg 27.0-32.0 [facility] Nucleated RBC/100 WBC (Bld) [Ratio] 0 % 0-5 [facility] MCHC Auto (RBC) [Mass/Vol]Or dered By: Ashleigh Garcia on 07-17-2022 MCHC (RBC) [Mass/Vol] 31.1 g/dL 32-36 [facility] No Panel InformationOrdered By: Ashleigh Garcia on 07-17-2022 Estimated GFR (MDRD) Amer 56 mL/min >60 [facility] Comment on above: GFR Calc Estimated GFR (MDRD) Non-Af Amer 47 mL/min >60 [facility] Comment on above: Non- GFR Calc Troponin I High Sensitivity 9 pg/mL 3.0-54.0 [facility] Comment on above: Please Note: New Sima t Units and Gender Specific Reference Ranges. For more information see Policy Stat Procedure [place] High Sensitivity Troponin (TNIH) and attachments. Platelets bldOrdered By: Ashleigh Garcia on 07-17-2022 Platelets (Bld) [#/Vol] 315 10*3/uL 150-450 [facility] Serum or plasma calcium true urement (mass/volume)Ordered By: Ashleigh Garcia on 07-17-2022 Calcium [Mass/Vol] 8.8 mg/dL 8.5-10.1 [facility] Serum or plasma creatinine m easurement (mass/volume)Ordered By: Ashleigh Garcia on 07-17-2022 Creatinine [Mass/Vol] 1.22 mg/dL 0.55-1.02 [facility] Comment on above: The validity of the calculated GFR & GFRAA in patients over 70 years has not been determined. Clinical correlation is essential. Serum or plasma urea nitroge n measurement (mass/volume)Ordered By: Ashleigh Garcia on 07-17-2022 Urea nitrogen [Mass/Vol] 24 mg/dL 7-18 [facility] Thin prep Papanicolaou smear with manual screeningOrdered By: Ashleigh Garcia on 07-17-2022 Thin prep Papanicolaou smear with manual screening 5 5-15 [facility] Absolute lymphocyte countOrd ered By: Dr. Garcia on 07-02-2022 Lymphocytes Auto (Unsp spec) [#/Vol] 2.15 10*3/uL 0.83-4.51 [facility] Basophil percentageOrdered B y: Dr. Garcia on 07-02-2022 Basophils/100 WBC (Bld) 0.8 % 0-1 [facility] Bilirubin [Mass/Vol] 0.30 mg/dL 0.20-1.00 [facility] Comment on above: For patients on eltr ombopag therapy, use of Dimension [place] TBIL is not recommended. Chloride [Moles/Vol] 106 mmol/L 98-107 [facility] Eosinophils/100 WBC (Bld) 1.5 % 0-5 [facility] Glucose [Mass/Vol] 105 mg/dL 74-106 [facility] Comment on above: Fasting Glucose resu lt from 100 to 125 mg/dL suggests IMPAIRED HOMEOSTASIS per A.D.A. criteria. Neutrophils (Bld) [#/Vol] 3.0 10*3/uL 2.0-7.7 [facility] Neutrophils/100 WBC (Bld) 51.5 % 47-70 [facility] Potassium [Moles/Vol] 3.8 mmol/L 3.5-5.1 [facility] Protein [Mass/Vol] 7.8 g/dL 6.4-8.2 [facility] Sodium [Moles/Vol] 139 mmol/L 136-145 [facility] WBC (Bld) [#/Vol] 5.9 10*3/uL 4.4-11.0 [facility] Blood erythrocytes count (nu mber/volume)Ordered By: Dr. Garcia on 07-02-2022 RBC (Bld) [#/Vol] 4.40 10*6/uL 4.2-5.4 [facility] Blood hemoglobin measurement (mass/volume)Ordered By: Dr. Garcia on 07-02-2022 Hemoglobin (Bld) [Mass/Vol] 12.0 g/dL 12.0-15.0 [facility] Blood lymphocytes/100 leukoc ytesOrdered By: Dr. Garcia on 07-02-2022 Lymphocytes/100 WBC (Bld) 36.5 % 19-41 [facility] Blood monocytes/100 leukocyt esOrdered By: Dr. Garcia on 07-02-2022 Monocytes/100 WBC (Bld) 9.5 % 0-10 [facility] Blood platelet mean volumeOr dered By: Dr. Garcia on 07-02-2022 Platelet mean volume (Bld) [Entitic vol] 10.6 fL 6.2-12.0 [facility] Determination of erythrocyte mean corpuscular volume (MCV)Ordered By: Dr. Garcia on 07-02-2022 MCV (RBC) [Entitic vol] 86.4 fL 81-99 [facility] Hematocrit Auto (Bld) [Volum e fraction]Ordered By: Dr. Garcia on 07-02-2022 Hematocrit (Bld) [Volume fraction] 38.0 % 37-47 [facility] Laboratory - Chemistry and C hemistry - challengeOrdered By: Dr. Garcia on 07-02-2022 ALP [Catalytic activity/Vol] 146 U/L 45-117 [facility] ALT [Catalytic activity/Vol] 29 U/L 13-56 [facility] CO2 [Moles/Vol] 26.0 mmol/L 21.0-32.0 [facility] Globulin (S) [Mass/Vol] 4.5 g/dL 2.2-4.2 [facility] Urea nitrogen/Creatinine [Mass ratio] 14.3 mg/mg 10-20 [facility] Laboratory - Hematology and Cell countsOrdered By: Dr. Garcia on 07-02-2022 Erythrocyte distribution width (RBC) [Entitic vol] 44.1 fL 35.1-43.9 [facility] Erythrocyte distribution width (RBC) [Ratio] 14.0 % 11.6-14.6 [facility] Immature granulocytes/100 WBC (Bld) 0.200 % 0.0-0.9 [facility] Comment on above: IG% - Immature Granu locytes (promyelocytes, myelocytes and metamyelocytes) > 1% indicates that a LEFT SHIFT is Present. MCH (RBC) [Entitic mass] 27.3 pg 27.0-32.0 [facility] Nucleated RBC/100 WBC (Bld) [Ratio] 0 % 0-5 [facility] MCHC Auto (RBC) [Mass/Vol]Or dered By: Dr. Garcia on 07-02-2022 MCHC (RBC) [Mass/Vol] 31.6 g/dL 32-36 [facility] No Panel InformationOrdered By: Dr. Garcia on 07-02-2022 Estimated GFR (MDRD) Amer 62 mL/min >60 [facility] Comment on above: GFR Calc Estimated GFR (MDRD) Non-Af Amer 51 mL/min >60 [facility] Comment on above: Non- GFR Calc Thyroid Stimulating Hormone (TSH) 1.03 uIU/mL 0.358-3.74 [facility] Vitamin D 25-Hydroxy 19.9 ng/mL [facility] Comment on above: Vitamin D 25(OH) Sta tus Range Deficiency <20 ng/mL (50nmol/L) Insufficiency 20 - 30 ng/mL (50 - 75 nmol/L) Sufficiency 30 - 100 ng/mL (75 - 250 nmol/L) Toxicity >100 ng/mL (>250 nmol/L) Platelets bldOrdered By: Dr. Garcia on 07-02-2022 Platelets (Bld) [#/Vol] 286 10*3/uL 150-450 [facility] Serum or plasma albumin true urement (mass/volume)Ordered By: Dr. Garcia on 07-02-2022 Albumin [Mass/Vol] 3.3 g/dL 3.2-5.0 [facility] Serum or plasma albumin/glob ulin mass ratioOrdered By: Dr. Garcia on 07-02-2022 Albumin/Globulin [Mass ratio] 0.7 {ratio} 0.9-2.4 [facility] Serum or plasma calcium true urement (mass/volume)Ordered By: Dr. Garcia on 07-02-2022 Calcium [Mass/Vol] 8.8 mg/dL 8.5-10.1 [facility] Serum or plasma creatinine m easurement (mass/volume)Ordered By: Dr. Garcia on 07-02-2022 Creatinine [Mass/Vol] 1.12 mg/dL 0.55-1.02 [facility] Comment on above: The validity of the calculated GFR & GFRAA in patients over 70 years has not been determined. Clinical correlation is essential. Serum or plasma urea nitroge n measurement (mass/volume)Ordered By: Dr. Garcia on 07-02-2022 Urea nitrogen [Mass/Vol] 16 mg/dL 7-18 [facility] Thin prep Papanicolaou smear with manual screeningOrdered By: Dr. Garcia on 07-02-2022 Thin prep Papanicolaou smear with manual screening 20 U/L 15-37 [facility] Thin prep Papanicolaou smear with manual screening 7 5-15 [facility] Absolute lymphocyte countOrd ered By: Dr. Zeng on 06-28-2022 Lymphocytes Auto (Unsp spec) [#/Vol] 3.45 10*3/uL 0.83-4.51 [facility] Basophil percentageOrdered B y: Dr. Zeng on 06-28-2022 Basophils/100 WBC (Bld) 0.4 % 0-1 [facility] Chloride [Moles/Vol] 109 mmol/L 98-107 [facility] Eosinophils/100 WBC (Bld) 1.9 % 0-5 [facility] Glucose [Mass/Vol] 118 mg/dL 74-106 [facility] Comment on above: Fasting Glucose resu lt from 100 to 125 mg/dL suggests IMPAIRED HOMEOSTASIS per A.D.A. criteria. Neutrophils (Bld) [#/Vol] 3.3 10*3/uL 2.0-7.7 [facility] Neutrophils/100 WBC (Bld) 44.2 % 47-70 [facility] Potassium [Moles/Vol] 4.2 mmol/L 3.5-5.1 [facility] Comment on above: Slight Hemolysis, Re sult may be falsely increased. Sodium [Moles/Vol] 142 mmol/L 136-145 [facility] WBC (Bld) [#/Vol] 7.6 10*3/uL 4.4-11.0 [facility] Blood erythrocytes count (nu mber/volume)Ordered By: Dr. Zeng on 06-28-2022 RBC (Bld) [#/Vol] 4.34 10*6/uL 4.2-5.4 [facility] Blood hemoglobin measurement (mass/volume)Ordered By: Dr. Zeng on 06-28-2022 Hemoglobin (Bld) [Mass/Vol] 11.7 g/dL 12.0-15.0 [facility] Blood lymphocytes/100 leukoc ytesOrdered By: Dr. Zeng on 06-28-2022 Lymphocytes/100 WBC (Bld) 45.6 % 19-41 [facility] Blood monocytes/100 leukocyt esOrdered By: Dr. Zeng on 06-28-2022 Monocytes/100 WBC (Bld) 7.8 % 0-10 [facility] Blood platelet mean volumeOr dered By: Dr. Zeng on 06-28-2022 Platelet mean volume (Bld) [Entitic vol] 10.2 fL 6.2-12.0 [facility] Determination of erythrocyte mean corpuscular volume (MCV)Ordered By: Dr. Zeng on 06-28-2022 MCV (RBC) [Entitic vol] 88.5 fL 81-99 [facility] Hematocrit Auto (Bld) [Volum e fraction]Ordered By: Dr. Zeng on 06-28-2022 Hematocrit (Bld) [Volume fraction] 38.4 % 37-47 [facility] Laboratory - Chemistry and C hemistry - challengeOrdered By: Dr. Zeng on 06-28-2022 CO2 [Moles/Vol] 29.0 mmol/L 21.0-32.0 [facility] Urea nitrogen/Creatinine [Mass ratio] 14.5 mg/mg 10-20 [facility] Laboratory - Hematology and Cell countsOrdered By: Dr. Zeng on 06-28-2022 Erythrocyte distribution width (RBC) [Entitic vol] 44.2 fL 35.1-43.9 [facility] Erythrocyte distribution width (RBC) [Ratio] 13.6 % 11.6-14.6 [facility] Immature granulocytes/100 WBC (Bld) 0.100 % 0.0-0.9 [facility] Comment on above: IG% - Immature Granu locytes (promyelocytes, myelocytes and metamyelocytes) > 1% indicates that a LEFT SHIFT is Present. MCH (RBC) [Entitic mass] 27.0 pg 27.0-32.0 [facility] Nucleated RBC/100 WBC (Bld) [Ratio] 0 % 0-5 [facility] MCHC Auto (RBC) [Mass/Vol]Or dered By: Dr. Zeng on 06-28-2022 MCHC (RBC) [Mass/Vol] 30.5 g/dL 32-36 [facility] No Panel InformationOrdered By: Dr. Zeng on 06-28-2022 Troponin I High Sensitivity 23 pg/mL 3.0-54.0 [facility] Comment on above: Please Note: New Sima t Units and Gender Specific Reference Ranges. For more information see Policy Stat Procedure [place] High Sensitivity Troponin (TNIH) and attachments. Estimated Creatinine Clearance Calc 40.49 ml/min [facility] Estimated GFR (MDRD) Amer 63 mL/min >60 [facility] Comment on above: GFR Calc Estimated GFR (MDRD) Non-Af Amer 52 mL/min >60 [facility] Comment on above: Non- GFR Calc Platelets bldOrdered By: Dr. Zeng on 06-28-2022 Platelets (Bld) [#/Vol] 321 10*3/uL 150-450 [facility] Serum or plasma calcium true urement (mass/volume)Ordered By: Dr. Zeng on 06-28-2022 Calcium [Mass/Vol] 9.0 mg/dL 8.5-10.1 [facility] Serum or plasma creatinine m easurement (mass/volume)Ordered By: Dr. Zeng on 06-28-2022 Creatinine [Mass/Vol] 1.10 mg/dL 0.55-1.02 [facility] Comment on above: The validity of the calculated GFR & GFRAA in patients over 70 years has not been determined. Clinical correlation is essential. Serum or plasma urea nitroge n measurement (mass/volume)Ordered By: Dr. Zeng on 06-28-2022 Urea nitrogen [Mass/Vol] 16 mg/dL 7-18 [facility] Thin prep Papanicolaou smear with manual screeningOrdered By: Dr. Zeng on 06-28-2022 Thin prep Papanicolaou smear with manual screening 4 5-15 [facility] Absolute lymphocyte countOrd ered By: Dr. Garcia on 06-12-2022 Lymphocytes Auto (Unsp spec) [#/Vol] 2.44 10*3/uL 0.83-4.51 [facility] Basophil percentageOrdered B y: Dr. Garcia on 06-12-2022 Basophils/100 WBC (Bld) 0.3 % 0-1 [facility] Chloride [Moles/Vol] 107 mmol/L 98-107 [facility] Eosinophils/100 WBC (Bld) 0.8 % 0-5 [facility] Glucose [Mass/Vol] 90 mg/dL 74-106 [facility] Neutrophils (Bld) [#/Vol] 3.2 10*3/uL 2.0-7.7 [facility] Neutrophils/100 WBC (Bld) 50.8 % 47-70 [facility] Potassium [Moles/Vol] 4.1 mmol/L 3.5-5.1 [facility] Sodium [Moles/Vol] 141 mmol/L 136-145 [facility] WBC (Bld) [#/Vol] 6.2 10*3/uL 4.4-11.0 [facility] Blood erythrocytes count (nu mber/volume)Ordered By: Dr. Garcia on 06-12-2022 RBC (Bld) [#/Vol] 4.11 10*6/uL 4.2-5.4 [facility] Blood hemoglobin measurement (mass/volume)Ordered By: Dr. Garcia on 06-12-2022 Hemoglobin (Bld) [Mass/Vol] 11.1 g/dL 12.0-15.0 [facility] Blood lymphocytes/100 leukoc ytesOrdered By: Dr. Garcia on 06-12-2022 Lymphocytes/100 WBC (Bld) 39.3 % 19-41 [facility] Blood monocytes/100 leukocyt esOrdered By: Dr. Garcia on 06-12-2022 Monocytes/100 WBC (Bld) 8.5 % 0-10 [facility] Blood platelet mean volumeOr dered By: Dr. Garcia on 06-12-2022 Platelet mean volume (Bld) [Entitic vol] 10.5 fL 6.2-12.0 [facility] Determination of erythrocyte mean corpuscular volume (MCV)Ordered By: Dr. Garcia on 06-12-2022 MCV (RBC) [Entitic vol] 88.3 fL 81-99 [facility] Hematocrit Auto (Bld) [Volum e fraction]Ordered By: Dr. Garcia on 06-12-2022 Hematocrit (Bld) [Volume fraction] 36.3 % 37-47 [facility] Laboratory - Chemistry and C hemistry - challengeOrdered By: Dr. Garcia on 06-12-2022 CO2 [Moles/Vol] 26.0 mmol/L 21.0-32.0 [facility] Urea nitrogen/Creatinine [Mass ratio] 13.0 mg/mg 10-20 [facility] Laboratory - Hematology and Cell countsOrdered By: Dr. Garcia on 06-12-2022 Erythrocyte distribution width (RBC) [Entitic vol] 43.6 fL 35.1-43.9 [facility] Erythrocyte distribution width (RBC) [Ratio] 13.5 % 11.6-14.6 [facility] Immature granulocytes/100 WBC (Bld) 0.300 % 0.0-0.9 [facility] Comment on above: IG% - Immature Granu locytes (promyelocytes, myelocytes and metamyelocytes) > 1% indicates that a LEFT SHIFT is Present. MCH (RBC) [Entitic mass] 27.0 pg 27.0-32.0 [facility] Nucleated RBC/100 WBC (Bld) [Ratio] 0 % 0-5 [facility] MCHC Auto (RBC) [Mass/Vol]Or dered By: Dr. Garcia on 06-12-2022 MCHC (RBC) [Mass/Vol] 30.6 g/dL 32-36 [facility] No Panel InformationOrdered By: Dr. Garcia on 06-12-2022 Estimated GFR (MDRD) Amer 56 mL/min >60 [facility] Comment on above: GFR Calc Estimated GFR (MDRD) Non-Af Amer 46 mL/min >60 [facility] Comment on above: Non- GFR Calc Platelets bldOrdered By: Dr. Garcia on 06-12-2022 Platelets (Bld) [#/Vol] 360 10*3/uL 150-450 [facility] Serum or plasma calcium true urement (mass/volume)Ordered By: Dr. Garcia on 06-12-2022 Calcium [Mass/Vol] 8.8 mg/dL 8.5-10.1 [facility] Serum or plasma creatinine m easurement (mass/volume)Ordered By: Dr. Garcia on 06-12-2022 Creatinine [Mass/Vol] 1.23 mg/dL 0.55-1.02 [facility] Comment on above: The validity of the calculated GFR & GFRAA in patients over 70 years has not been determined. Clinical correlation is essential. Serum or plasma urea nitroge n measurement (mass/volume)Ordered By: Dr. Garcia on 06-12-2022 Urea nitrogen [Mass/Vol] 16 mg/dL 7-18 [facility] Thin prep Papanicolaou smear with manual screeningOrdered By: Dr. Garcia on 06-12-2022 Thin prep Papanicolaou smear with manual screening 8 5-15 [facility] Basophil percentageOrdered B y: Dr. Nicholson on 04-28-2022 Chloride [Moles/Vol] 109 mmol/L 98-107 [facility] Glucose [Mass/Vol] 97 mg/dL 74-106 [facility] Potassium [Moles/Vol] 3.7 mmol/L 3.5-5.1 [facility] Comment on above: Slight Hemolysis, Re sult may be falsely increased. Sodium [Moles/Vol] 142 mmol/L 136-145 [facility] Laboratory - Chemistry and C hemistry - challengeOrdered By: Dr. Nicholson on 04-28-2022 CO2 [Moles/Vol] 25.0 mmol/L 21.0-32.0 [facility] Urea nitrogen/Creatinine [Mass ratio] 10.8 mg/mg 10- [facility] No Panel InformationOrdered By: Dr. Nicholson on 04-28-2022 Estimated Creatinine Clearance Calc 46.29 ml/min [facility] Estimated GFR (MDRD) Amer 78 mL/min >60 [facility] Comment on above: GFR Calc Estimated GFR (MDRD) Non-Af Amer 64 mL/min >60 [facility] Comment on above: Non- GFR Calc Serum or plasma calcium true urement (mass/volume)Ordered By: Dr. Nicholson on 04-28-2022 Calcium [Mass/Vol] 8.7 mg/dL 8.5-10.1 [facility] Serum or plasma creatinine m easurement (mass/volume)Ordered By: Dr. Nicholson on 04-28-2022 Creatinine [Mass/Vol] 0.92 mg/dL 0.55-1.02 [facility] Comment on above: The validity of the calculated GFR & GFRAA in patients over 70 years has not been determined. Clinical correlation is essential. Serum or plasma urea nitroge n measurement (mass/volume)Ordered By: Dr. Nicholson on 04-28-2022 Urea nitrogen [Mass/Vol] 10 mg/dL 7-18 [facility] Thin prep Papanicolaou smear with manual screeningOrdered By: Dr. Nicholson on 04-28-2022 Thin prep Papanicolaou smear with manual screening 8 5-15 [facility] RUBEOon 04-20-2022 Rubeola IgG Ab Positive Normal Count Includes [facility] ([place]) Comment on above: Result Comment: INTE RPRETATION OF RUBEOLA (MEASLES) IgG BY EIA: Negative: No detectable Measles IgG antibody. Presumed non-immune to measles virus. Positive: Measles IgG antibody Detected. Presumed immune to measles virus. If clinically indicated, order Measles IgM to rule out active infection. Equivocal: Equivocal for antibodies to Measles. Suggest repeat testing 10-14 days. Performed By: #### T CHICO HUYNH, BMP, GFR #### [place] [place], [place] [address] VARISon 04-20-[address] Positive Normal Count Includes [facility] ([place]) Comment on above: Result Comment: INTE RPRETATION OF VARICELLA IMMUNE STATUS IgG BY EIA: Negative: No detectable VZV IgG antibody. Positive: VZV IgG antibody Detected. If clinically indicated, order Varicella IgM to rule out recent infection. Equivocal: Equivocal for antibodies to VZV. Suggest repeat testing in 10-14 days. Performed By: #### T LINO, CHICO, BMP, GFR #### [place] [id number] RUBISon 04-18-[address] Positive Normal Positive Count Includes [facility] ([place]) Comment on above: Result Comment: This immune status assay detects IgM and/or IgG antibody to Rubella. Interpret results in conjunction with clinical history. POS: Antibody detected; exposure at undetermined recent or distant time. If clinically indicated, order Rubella IGM to rule out recent infection. NEG: No antibody detected. Performed By: #### R MALINDA BRADSHAW RUBEO, HBSAB #### [place] [address] HBSABon 04-17-2022 Hep B Surf Ab <3.1 Low >=10.0 Count Includes [facility] ([place]) Comment on above: Result Comment: 0 to < 10.0 mIU/mL Nonreactive Patient is considered not to have protective immunity to HBV infection >/= 10.0 mIU/mL Reactive Patient is considered to have protective immunity to HBV infection. This assay is traceable to the World Health Organization (WHO) Hepatitis B Immunoglobulin 1st International Reference Preparation (1976). The accepted criteria for immunity to HBV is anti-HBs activity >/= 10.0 mIU/mL, as defined by the WHO International Reference Preparation. Performed By: #### R UBIS, VARIS, RUBEO, HBSAB #### [facility] [address] [place] [id number] .Auto Diffon 02-20-2022 Basophil, Absolute 0.1 10 3/mcL Normal 0.0-0.2 [facility] ([place]) Comment on above: Performed By: #### T ROPHS, PBNP, BMP, GFR #### [address] [address] Basophils/100 WBC (Bld) 0.7 % Normal 0.0-2.5 Count Includes [facility] ([place]) Comment on above: Performed By: #### T ROPHS, PBNP, BMP, GFR #### [address] [address] Eosinophil, Absolute 0.1 10 3/mcL Normal 0.0-0.4 [facility] ([place]) Comment on above: Performed By: #### T ROPHS, PBNP, BMP, GFR #### [address] [address] Eosinophils/100 WBC (Bld) 1.3 % Normal 0.0-7.0 Count Includes [facility] ([place]) Comment on above: Performed By: #### T ROPHS, PBNP, BMP, GFR #### [address] [address] Lymphocyte, Absolute 2.3 10 3/mcL Normal 0.8-3.9 [facility] ([place]) Comment on above: Performed By: #### T ROPHS, PBNP, BMP, GFR #### [address] [address] Lymphocytes/100 WBC (Bld) 26.8 % Normal 10.0-50.0 Count Includes [facility] ([place] Comment on above: Performed By: #### T ROPHS, PBNP, BMP, GFR #### [address] [address] Monocyte, Absolute 0.8 10 3/mcL Normal 0.2-1.0 [facility] ([place] Comment on above: Performed By: #### T ROPHS, PBNP, BMP, GFR #### [address] [address] Monocytes/100 WBC (Bld) 9.0 % Normal 1.7-13.0 Count Includes [facility] ([place]) Comment on above: Performed By: #### T LINO, PBNP, BMP, GFR #### [address] [address] Neutrophils/100 WBC (Bld) 62.2 % Normal 37.0-80.0 Count Includes [facility] ([place]) Comment on above: Performed By: #### T LINO, PBNP, BMP, GFR #### [address] [address] .GFRon 02-20-2022 GFR 65 ml/min/1.73sqm Normal Count Includes [facility] ([place]) Comment on above: Result Comment: GFR Population mean for , Non- Americans Ages 20-29 = 116 mL/min/1.73 sq.m. Ages 30-39 = 107 mL/min/1.73 sq.m. Ages 40-49 = 99 mL/min/1.73 sq.m. Ages 50-59 = 93 mL/min/1.73 sq.m. Ages 60-69 = 85 mL/min/1.73 sq.m. Ages 70+ = 75 mL/min/1.73 sq.m. Chronic Kidney Disease: Less than 60 mL/min/1.73 square meters End Stage Renal Disease: Less than 15 mL/min/1.73 square meters Performed By: #### T LINO, PBNP, BMP, GFR #### [address] [address] GFR Non- 54 ml/min/1.73sqm Normal Count Includes [facility] ([place]) Comment on above: Result Comment: GFR Population mean for , Non- Americans Ages 20-29 = 116 mL/min/1.73 sq.m. Ages 30-39 = 107 mL/min/1.73 sq.m. Ages 40-49 = 99 mL/min/1.73 sq.m. Ages 50-59 = 93 mL/min/1.73 sq.m. Ages 60-69 = 85 mL/min/1.73 sq.m. Ages 70+ = 75 mL/min/1.73 sq.m. Chronic Kidney Disease: Less than 60 mL/min/1.73 square meters End Stage Renal Disease: Less than 15 mL/min/1.73 square meters Performed By: #### T ROPHS, PBNP, BMP, GFR #### [address] [address] .MDWon 02-20-2022 Monocyte Distribution Width 18.38 Normal 0.00-20.00 Count Includes [facility] ([place]) Comment on above: Result Comment: For ED adult patients suspected of sepsis, MDW<=20.0 does not rule out sepsis or risk of sepsis Performed By: #### T LINO, PBNP, BMP, GFR #### [address] [address] .NEUABSon 02-20-2022 Neutrophil, Absolute 5.3 10 3/mcL Normal 2.9-6.2 [facility] ([place]) Comment on above: Performed By: #### T LINO, PBNP, BMP, GFR #### [address] [address] BMPon 02-20-2022 BUN/Creatinine Ratio 17 ratio Normal 7-27 [facility] ([place]) Comment on above: Performed By: #### T ROPIRENE, PBNP, BMP, GFR #### [address] [address] Calcium [Mass/Vol] 8.4 mg/dL Normal 8.4-10.2 [facility] ([place]) Comment on above: Performed By: #### T ROPIRENE, PBNP, BMP, GFR #### [address] [address] Chloride [Moles/Vol] 105 mmol/L Normal 98-107 [facility] ([place] Comment on above: Performed By: #### T ROPHS, PBNP, BMP, GFR #### [address] [address] CO2 [Moles/Vol] 27 mmol/L Normal 23-31 Count Includes [facility] ([place]) Comment on above: Performed By: #### T ROPHS, PBNP, BMP, GFR #### [address] [address] Creatinine [Mass/Vol] 1.02 mg/dL Normal 0.55-1.02 [facility] ([place]) Comment on above: Performed By: #### T ROPHS, PBNP, BMP, GFR #### [address] [address] Electrolyte Balance 8.0 mEq/L Normal 4.0-15.0 [facility] ([place]) Comment on above: Performed By: #### T ROPHS, PBNP, BMP, GFR #### [address] [address] Glucose [Mass/Vol] 100 mg/dL Normal 80-115 [facility] ([place]) Comment on above: Performed By: #### T ROPHS, PBNP, BMP, GFR #### [address] [address] Potassium [Moles/Vol] 4.2 mmol/L Normal 3.5-5.1 [facility] ([place]) Comment on above: Performed By: #### T ROPHS, PBNP, BMP, GFR #### [address] [address] Sodium [Moles/Vol] 140 mmol/L Normal 136-145 [facility] ([place]) Comment on above: Performed By: #### T ROPHS, PBNP, BMP, GFR #### [address] [address] Urea nitrogen [Mass/Vol] 17 mg/dL Normal 7-18 Count Includes [facility] ([place]) Comment on above: Performed By: #### T ROPHS, PBNP, BMP, GFR #### [address] [address] CBCon 02-20-2022 Erythrocyte distribution width (RBC) [Ratio] 14.1 % Normal 11.5-14.5 Count Includes [facility] ([place]) Comment on above: Performed By: #### T ROPHS, PBNP, BMP, GFR #### [place] [address] Hematocrit (Bld) [Volume fraction] 34.1 % Low 37.0-47.0 Count Includes [facility] ([place] Comment on above: Performed By: #### T ROPHS, PBNP, BMP, GFR #### [place] [address] Hgb 11.2 G/dL Low 12.0-16.0 Count Includes [facility] ([place] Comment on above: Performed By: #### T ROPHS, PBNP, BMP, GFR #### [place] [address] MCH (RBC) [Entitic mass] 28.3 pg Normal 27.0-31.2 Count Includes [facility] ([place] Comment on above: Performed By: #### T ROPHS, PBNP, BMP, GFR #### [place] [address] MCHC 33.0 G/dL Normal 33.0-37.0 Count Includes [facility] ([place] Comment on above: Performed By: #### T ROPHS, PBNP, BMP, GFR #### [place] [address] MCV (RBC) [Entitic vol] 85.7 fL Normal 80.0-94.0 Count Includes [facility] ([place] Comment on above: Performed By: #### T ROPHS, PBNP, BMP, GFR #### [place] [address] Platelet 288 10 3/mcL Normal 130-400 Count Includes [facility] ([place] Comment on above: Performed By: #### T ROPHS, PBNP, BMP, GFR #### [place] [address] Platelet mean volume (Bld) [Entitic vol] 8.2 fL Normal 7.4-10.4 Count Includes [facility] ([place] Comment on above: Performed By: #### T ROPHS, PBNP, BMP, GFR #### [place] [id number] RBC 3.97 10 6/mcL Low 4.20-5.40 Count Includes [facility] ([place] Comment on above: Performed By: #### T LINO, CHICO, BMP, GFR #### [address] [place], [place] [address] WBC 8.5 10 3/mcL Normal 4.6-10.8 Count Includes [facility] ([place] Comment on above: Performed By: #### T LINO, CHICO, BMP, GFR #### [address] [place], [place] [address] LABORATORYOrdered By: Shonna Bourne on 02-20-2022 Basophil, Absolute 0.1 103/mcL Invalid Interpretation Code 0.0 - 0.2 10^3/mcL AO Workflow SS Basophils/100 WBC (Bld) 0.7 % Invalid Interpretation Code 0.0 - 2.5 % AO Workflow SS Eosinophil, Absolute 0.1 103/mcL Invalid Interpretation Code 0.0 - 0.4 10^3/mcL AO Workflow SS Eosinophils/100 WBC (Bld) 1.3 % Invalid Interpretation Code 0.0 - 7.0 % AO Workflow SS Erythrocyte distribution width (RBC) [Ratio] 14.1 % Invalid Interpretation Code 11.5 - 14.5 % AO Workflow SS Hematocrit (Bld) [Volume fraction] 34.1 % Invalid Interpretation Code 37.0 - 47.0 % AO Workflow SS Hemoglobin (Bld) [Mass/Vol] 11.2 G/dL Invalid Interpretation Code 12.0 - 16.0 G/dL AO Workflow SS Lymphocyte, Absolute 2.3 103/mcL Invalid Interpretation Code 0.8 - 3.9 10^3/mcL AO Workflow SS Lymphocytes/100 WBC (Bld) 26.8 % Invalid Interpretation Code 10.0 - 50.0 % AO Workflow SS MCH (RBC) [Entitic mass] 28.3 pg Invalid Interpretation Code 27.0 - 31.2 pg AO Workflow SS MCHC 33.0 G/dL Invalid Interpretation Code 33.0 - 37.0 G/dL AO Workflow SS MCV (RBC) [Entitic vol] 85.7 fL Invalid Interpretation Code 80.0 - 94.0 fL AO Workflow SS Monocyte distribution width Auto (Bld) [Entitic vol] 18.38 Invalid Interpretation Code 0.00 - 20.00 AO Workflow SS Comment on above: Result Comment: For ED adult patients suspected of sepsis, MDW<=20.0 does not rule out sepsis or risk of sepsis Monocyte, Absolute 0.8 103/mcL Invalid Interpretation Code 0.2 - 1.0 10^3/mcL AO Workflow SS Monocytes/100 WBC (Bld) 9.0 % Invalid Interpretation Code 1.7 - 13.0 % AO Workflow SS Neutrophil, Absolute 5.3 103/mcL Invalid Interpretation Code 2.9 - 6.2 10^3/mcL AO Workflow SS Neutrophils/100 WBC (Bld) 62.2 % Invalid Interpretation Code 37.0 - 80.0 % AO Workflow SS Platelet mean volume (Bld) [Entitic vol] 8.2 fL Invalid Interpretation Code 7.4 - 10.4 fL AO Workflow SS Platelets (Bld) [#/Vol] 288 103/mcL Invalid Interpretation Code 130 - 400 10^3/mcL AO Workflow SS RBC (Bld) [#/Vol] 3.97 106/mcL Invalid Interpretation Code 4.20 - 5.40 10^6/mcL AO Workflow SS WBC 8.5 103/mcL Invalid Interpretation Code 4.6 - 10.8 10^3/mcL AO Workflow SS LABORATORYOrdered By: Fidelia Jurado on 02-20-2022 Calcium [Mass/Vol] 8.4 mg/dL Invalid Interpretation Code 8.4 - 10.2 mg/dL AO ADM SS Chloride [Moles/Vol] 105 mmol/L Invalid Interpretation Code 98 - 107 mmol/L AO ADM SS CO2 [Moles/Vol] 27 mmol/L Invalid Interpretation Code 23 - 31 mmol/L AO ADM SS Creatinine [Mass/Vol] 1.02 mg/dL Invalid Interpretation Code 0.55 - 1.02 mg/dL AO ADM SS Electrolyte Balance 8.0 mEq/L Invalid Interpretation Code 4.0 - 15.0 mEq/L AO ADM SS Glucose [Mass/Vol] 100 mg/dL Invalid Interpretation Code 80 - 115 mg/dL AO ADM SS Potassium [Moles/Vol] 4.2 mmol/L Invalid Interpretation Code 3.5 - 5.1 mmol/L AO ADM SS Sodium [Moles/Vol] 140 mmol/L Invalid Interpretation Code 136 - 145 mmol/L AO ADM SS Urea nitrogen [Mass/Vol] 17 mg/dL Invalid Interpretation Code 7 - 18 mg/dL AO ADM SS Urea nitrogen/Creatinine [Mass ratio] 17 ratio Invalid Interpretation Code 7 - 27 ratio AO ADM SS LABORATORYOrdered By: SYSTEM SYSTEM on 02-20-2022 GFR 65 ml/min/1.73sqm Invalid Interpretation Code AO Chemistry S GFR Non- 54 ml/min/1.73sqm Invalid Interpretation Code AO Chemistry S Absolute lymphocyte counton 12-23-2021 Lymphocytes Auto (Unsp spec) [#/Vol] 2.53 10*3/uL 0.83-4.51 [facility] Work Phone: Basophil percentageon 2021 Basophils/100 WBC (Bld) 0.5 % 0-1 [facility] Work Phone: Bilirubin [Mass/Vol] 0.20 mg/dL 0.20-1.00 [facility] Work Phone: Comment on above: For patients on eltr ombopag therapy, use of Dimension [place] TBIL is not recommended. Chloride [Moles/Vol] 109 mmol/L 98-107 [facility] Work Phone: Cholesterol [Mass/Vol] 216 mg/dL <200 [facility] Work Phone: Comment on above: <200 mg/dL Desirable 200-240 mg/dL Borderline >240 mg/dL High Risk Eosinophils/100 WBC (Bld) 1.4 % 0-5 [facility] Work Phone: Glucose [Mass/Vol] 124 mg/dL 74-106 [facility] Work Phone: Comment on above: Fasting Glucose resu lt from 100 to 125 mg/dL suggests IMPAIRED HOMEOSTASIS per A.D.A. criteria. Neutrophils (Bld) [#/Vol] 2.7 10*3/uL 2.0-7.7 [facility] Work Phone: Neutrophils/100 WBC (Bld) 46.3 % 47-70 [facility] Work Phone: Potassium [Moles/Vol] 3.7 mmol/L 3.5-5.1 [facility] Work Phone: Protein [Mass/Vol] 7.3 g/dL 6.4-8.2 [facility] Work Phone: [phone] Sodium [Moles/Vol] 141 mmol/L 136-145 [facility] Work Phone: [phone] Triglyceride [Mass/Vol] 183 mg/dL <199 [facility] Work Phone: [phone] Comment on above: The drugs N-Acetylcy steine and Metamizole may falsely depress this assay.Serum Triglycerides Reference Interval Normal <150 mg/dL Borderline high 150 - 199 mg/dL High 200 - 499 mg/dL Very High > or = 500 mg/dL WBC (Bld) [#/Vol] 5.9 10*3/uL 4.4-11.0 [facility] Work Phone: [phone] Blood erythrocytes count (nu mber/volume)on 12-23-2021 RBC (Bld) [#/Vol] 3.87 10*6/uL 4.2-5.4 [facility] Work Phone: [phone] Blood hemoglobin measurement (mass/volume)on 12-23-2021 Hemoglobin (Bld) [Mass/Vol] 10.7 g/dL 12.0-15.0 [facility] Work Phone: [phone] Blood lymphocytes/100 leukoc yteson 12-23-2021 Lymphocytes/100 WBC (Bld) 42.7 % 19-41 [facility] Work Phone: [phone] Blood monocytes/100 leukocyt eson 12-23-2021 Monocytes/100 WBC (Bld) 8.8 % 0-10 [facility] Work Phone: [phone] Blood platelet mean volumeon 12-23-2021 Platelet mean volume (Bld) [Entitic vol] 10.4 fL 6.2-12.0 [facility] Work Phone: [phone] Determination of erythrocyte mean corpuscular volume (MCV)on 12-23-2021 MCV (RBC) [Entitic vol] 88.4 fL 81-99 [facility] Work Phone: [phone] Hematocrit Auto (Bld) [Volum e fraction]on 12-23-2021 Hematocrit (Bld) [Volume fraction] 34.2 % 37-47 [facility] Work Phone: [phone] Laboratory - Chemistry and C hemistry - challengeon 12-23-2021 ALP [Catalytic activity/Vol] 116 U/L 45-117 [facility] Work Phone: [phone] ALT [Catalytic activity/Vol] 21 U/L 13-56 [facility] Work Phone: [phone] CO2 [Moles/Vol] 26.0 mmol/L 21.0-32.0 [facility] Work Phone: [phone] Globulin (S) [Mass/Vol] 4.2 g/dL 2.2-4.2 [facility] Work Phone: [phone]) Urea nitrogen/Creatinine [Mass ratio] 10.8 mg/mg 10-20 [facility] Work Phone: [phone] Laboratory - Hematology and Cell countson 12-23-2021 Erythrocyte distribution width (RBC) [Entitic vol] 42.4 fL 35.1-43.9 [facility] Work Phone: [phone] Erythrocyte distribution width (RBC) [Ratio] 13.1 % 11.6-14.6 [facility] Work Phone: [phone] Immature granulocytes/100 WBC (Bld) 0.300 % 0.0-0.9 [facility] Work Phone: [phone]) Comment on above: IG% - Immature Granu locytes (promyelocytes, myelocytes and metamyelocytes) > 1% indicates that a LEFT SHIFT is Present. MCH (RBC) [Entitic mass] 27.6 pg 27.0-32.0 [facility] Work Phone: [phone] Nucleated RBC/100 WBC (Bld) [Ratio] 0 % 0-5 [facility] Work Phone: [phone] MCHC Auto (RBC) [Mass/Vol]on 12-23-2021 MCHC (RBC) [Mass/Vol] 31.3 g/dL 32-36 [facility] Work Phone: [phone] Panel Informationon 12-23 Estimated GFR (MDRD) Amer 63 mL/min >60 [facility] Work Phone: Comment on above: GFR Calc Estimated GFR (MDRD) Non-Af Amer 52 mL/min >60 [facility] Work Phone: Comment on above: Non- GFR Calc Thyroid Stimulating Hormone (TSH) 0.67 uIU/mL 0.358-3.74 [facility] Work Phone: Vitamin D 25-Hydroxy 17.0 ng/mL [facility] Work Phone: Comment on above: Vitamin D 25(OH) Sta tus Range Deficiency <20 ng/mL (50nmol/L) Insufficiency 20 - 30 ng/mL (50 - 75 nmol/L) Sufficiency 30 - 100 ng/mL (75 - 250 nmol/L) Toxicity >100 ng/mL (>250 nmol/L) Platelets bldon 12-23-2021 Platelets (Bld) [#/Vol] 309 10*3/uL 150-450 [facility] Work Phone: Serum or plasma albumin true urement (mass/volume)on 12-23-2021 Albumin [Mass/Vol] 3.1 g/dL 3.2-5.0 [facility] Work Phone: Serum or plasma albumin/glob ulin mass ratioon 12-23-2021 Albumin/Globulin [Mass ratio] 0.7 {ratio} 0.9-2.4 [facility] Work Phone: [phone] Serum or plasma calcium true urement (mass/volume)on 12-23-2021 Calcium [Mass/Vol] 8.5 mg/dL 8.5-10.1 [facility] Work Phone: [phone] Serum or plasma cholesterol in HDL measurement (mass/volume)on 12-23-2021 Cholesterol in HDL [Mass/Vol] 61 mg/dL >40 [facility] Work Phone: Comment on above: The drugs N-Acetylcy steine and Metamizole may falsely depress this assay. Reference Range HDL <40 mg/dL Low HDL Cholesterol HDL >or= 60 mg/dL High HDL Cholesterol Serum or plasma cholesterol in VLDL measurement (mass/volume)on 12-23-2021 Cholesterol in VLDL [Mass/Vol] 37 mg/dL 5-40 [facility] Work Phone: Serum or plasma creatinine m easurement (mass/volume)on 12-23-2021 Creatinine [Mass/Vol] 1.11 mg/dL 0.55-1.02 [facility] Work Phone: Comment on above: The validity of the calculated GFR & GFRAA in patients over 70 years has not been determined. Clinical correlation is essential. Serum or plasma low density lipoprotein (LDL) cholesterol measurement (mass/volume)on 12-23-2021 Cholesterol in LDL [Mass/Vol] 118 mg/dL 0-130 [facility] Work Phone: Serum or plasma urea nitroge n measurement (mass/volume)on 12-23-2021 Urea nitrogen [Mass/Vol] 12 mg/dL 7-18 [facility] Work Phone: Thin prep Papanicolaou smear with manual screeningon 12-23-2021 Thin prep Papanicolaou smear with manual screening 15 U/L 15-37 [facility] Work Phone: Thin prep Papanicolaou smear with manual screening 6 5-15 [facility] Work Phone: .Auto Diffon 12-03-2021 Basophil, Absolute 0.0 10 3/mcL Normal 0.0-0.2 [facility] ([place]) Comment on above: Performed By: #### T ROPHS, PBNP, BMP, GFR #### [address] [address] Basophils/100 WBC (Bld) 0.7 % Normal 0.0-2.5 Count Includes [facility] ([place]) Comment on above: Performed By: #### T ROPHS, PBNP, BMP, GFR #### [address] [address] Eosinophil, Absolute 0.1 10 3/mcL Normal 0.0-0.4 [facility] ([place]) Comment on above: Performed By: #### T ROPHS, PBNP, BMP, GFR #### [address] [address] Eosinophils/100 WBC (Bld) 1.8 % Normal 0.0-7.0 Count Includes [facility] ([place] Comment on above: Performed By: #### T ROPHS, PBNP, BMP, GFR #### [address] [address] Lymphocyte, Absolute 2.1 10 3/mcL Normal 0.8-3.9 [facility] ([place]) Comment on above: Performed By: #### T ROPHS, PBNP, BMP, GFR #### [address] [address] Lymphocytes/100 WBC (Bld) 36.0 % Normal 10.0-50.0 Count Includes [facility] ([place] Comment on above: Performed By: #### T ROPHS, PBNP, BMP, GFR #### [address] [address] Monocyte, Absolute 0.7 10 3/mcL Normal 0.2-1.0 [facility] ([place] Comment on above: Performed By: #### T ROPHS, PBNP, BMP, GFR #### [address] [address] Monocytes/100 WBC (Bld) 11.5 % Normal 1.7-13.0 Count Includes [facility] ([place] Comment on above: Performed By: #### T ROPHS, PBNP, BMP, GFR #### [address] [address] Neutrophils/100 WBC (Bld) 50.0 % Normal 37.0-80.0 Count Includes [facility] ([place] Comment on above: Performed By: #### T ROPHS, PBNP, BMP, GFR #### [address] [address] .GFRon 12-03-2021 GFR 62 ml/min/1.73sqm Normal Count Includes [facility] ([place]) Comment on above: Result Comment: GFR Population mean for , Non- Americans Ages 20-29 = 116 mL/min/1.73 sq.m. Ages 30-39 = 107 mL/min/1.73 sq.m. Ages 40-49 = 99 mL/min/1.73 sq.m. Ages 50-59 = 93 mL/min/1.73 sq.m. Ages 60-69 = 85 mL/min/1.73 sq.m. Ages 70+ = 75 mL/min/1.73 sq.m. Chronic Kidney Disease: Less than 60 mL/min/1.73 square meters End Stage Renal Disease: Less than 15 mL/min/1.73 square meters Performed By: #### T ROPHS, PBNP, BMP, GFR #### [address] [address] GFR Non- 51 ml/min/1.73sqm Normal Count Includes [facility] ([place]) Comment on above: Result Comment: GFR Population mean for , Non- Americans Ages 20-29 = 116 mL/min/1.73 sq.m. Ages 30-39 = 107 mL/min/1.73 sq.m. Ages 40-49 = 99 mL/min/1.73 sq.m. Ages 50-59 = 93 mL/min/1.73 sq.m. Ages 60-69 = 85 mL/min/1.73 sq.m. Ages 70+ = 75 mL/min/1.73 sq.m. Chronic Kidney Disease: Less than 60 mL/min/1.73 square meters End Stage Renal Disease: Less than 15 mL/min/1.73 square meters Performed By: #### T ROPHS, PBNP, BMP, GFR #### [address] [address] .MDWon 12-03-2021 Monocyte Distribution Width 19.44 Normal 0.00-20.00 Count Includes [facility] ([place]) Comment on above: Result Comment: For ED adult patients suspected of sepsis, MDW<=20.0 does not rule out sepsis or risk of sepsis Performed By: #### T ROPHS, PBNP, BMP, GFR #### [address] [address] .NEUABSon 12-03-2021 Neutrophil, Absolute 3.0 10 3/mcL Normal 2.9-6.2 [facility] ([place]) Comment on above: Performed By: #### T LINO, PBNP, BMP, GFR #### [address] [address] BMPon 12-03-2021 BUN/Creatinine Ratio 12 ratio Normal 7-27 [facility] ([place]) Comment on above: Performed By: #### T ROPIRENE, PBNP, BMP, GFR #### [address] [address] Calcium [Mass/Vol] 8.8 mg/dL Normal 8.4-10.2 [facility] ([place]) Comment on above: Performed By: #### T ROPIRENE, PBNP, BMP, GFR #### [address] [address] Chloride [Moles/Vol] 104 mmol/L Normal 98-107 [facility] ([place]) Comment on above: Performed By: #### T ROPIRENE, PBNP, BMP, GFR #### [address] [address] CO2 [Moles/Vol] 30 mmol/L Normal 23-31 Count Includes [facility] ([place]) Comment on above: Performed By: #### T ROPIRENE, PBNP, BMP, GFR #### [address] [address] Creatinine [Mass/Vol] 1.07 mg/dL High 0.55-1.02 [facility] ([place]) Comment on above: Performed By: #### T ROPHS, PBNP, BMP, GFR #### [address] [address] Electrolyte Balance 7.0 mEq/L Normal 4.0-15.0 [facility] ([place]) Comment on above: Performed By: #### T ROPHS, PBNP, BMP, GFR #### [address] [address] Glucose [Mass/Vol] 92 mg/dL Normal 80-115 [facility] ([place]) Comment on above: Performed By: #### T ROPHS, PBNP, BMP, GFR #### [address] [address] Potassium [Moles/Vol] 4.0 mmol/L Normal 3.5-5.1 [facility] ([place]) Comment on above: Performed By: #### T ROPHS, PBNP, BMP, GFR #### [place] [id number] Sodium [Moles/Vol] 141 mmol/L Normal 136-145 [facility] ([place]) Comment on above: Performed By: #### T ROPHS, PBNP, BMP, GFR #### [place] [id number] Urea nitrogen [Mass/Vol] 13 mg/dL Normal 7-18 Count Includes [facility] ([place]) Comment on above: Performed By: #### T ROPHS, PBNP, BMP, GFR #### [address] [address] CBCon 12-03-2021 Erythrocyte distribution width (RBC) [Ratio] 13.4 % Normal 11.5-14.5 Count Includes [facility] ([place] Comment on above: Performed By: #### T ROPHS, PBNP, BMP, GFR #### [address] [address] Hematocrit (Bld) [Volume fraction] 35.1 % Low 37.0-47.0 Count Includes [facility] ([place] Comment on above: Performed By: #### T ROPHS, PBNP, BMP, GFR #### [address] [address] Hgb 11.5 G/dL Low 12.0-16.0 Count Includes [facility] ([place] Comment on above: Performed By: #### T ROPHS, PBNP, BMP, GFR #### [address] [address] MCH (RBC) [Entitic mass] 27.8 pg Normal 27.0-31.2 Count Includes [facility] ([place] Comment on above: Performed By: #### T ROPHS, PBNP, BMP, GFR #### [address] [address] MCHC 32.8 G/dL Low 33.0-37.0 Count Includes [facility] ([place] Comment on above: Performed By: #### T ROPHS, PBNP, BMP, GFR #### [address] [address] MCV (RBC) [Entitic vol] 85.0 fL Normal 80.0-94.0 Count Includes [facility] ([place] Comment on above: Performed By: #### T ROPHS, PBNP, BMP, GFR #### [place] [id number] Platelet 297 10 3/mcL Normal 130-400 Count Includes [facility] ([place] Comment on above: Performed By: #### T ROPHS, PBNP, BMP, GFR #### [place] [id number] Platelet mean volume (Bld) [Entitic vol] 8.0 fL Normal 7.4-10.4 Count Includes [facility] ([place] Comment on above: Performed By: #### T ROPHS, PBNP, BMP, GFR #### [address] [address] RBC 4.14 10 6/mcL Low 4.20-5.40 Count Includes [facility] ([place] Comment on above: Performed By: #### T ROPHS, PBNP, BMP, GFR #### [address] [address] WBC 5.9 10 3/mcL Normal 4.6-10.8 Count Includes [facility] ([place] Comment on above: Performed By: #### T ROPHS, PBNP, BMP, GFR #### [address] [address] PBNPon 12-03-2021 Natriuretic peptide B (Bld) [Mass/Vol] 66 pg/mL Normal 0-125 Count Includes [facility] ([place] Comment on above: Result Comment: NT-p roBNP results of less than 300 pg/mL effectively rules out acute congestive heart failure with 99% negative predictive value. Performed By: #### T ROPHS, PBNP, BMP, GFR #### [place] [address] [place], [place] [address] TROPHSon 12-03-2021 Troponin I High Sensitivity 8.4 ng/L Normal 0.0-51.4 Count Includes [facility] ([place] Comment on above: Performed By: #### T ROPHS, PBNP, BMP, GFR #### [place] [address] [place], [place] [address] XR CHEST 1 VIEWon 12-03-2021 XR CHEST 1 VIEW ORIGINAL EXAMINATION: ONE XRAY VIEW OF THE CHEST12/03/2021 10:51 am COMPARISON: Chest radiograph October 03, 2020 HISTORY: ORDERING SYSTEM PROVIDED HISTORY: Reason for Exam: chest pain FINDINGS: The cardiomediastinal silhouette is accentuated, similar to prior exam. There is no pulmonary vascular congestion. There is no focal consolidation. There is no large pleural effusion. No visible pneumothorax. Right humeral stabilization inessa is partially visualized. Linear opacity along the right proximal arm is favored to represent overlapping soft tissue/artifact. IMPRESSION: No acute cardiopulmonary findings. I have personally reviewed the images of this examination and agree with the resident's findings and interpretation. Interpreted by: Peg Rodriguez Preliminary Report By: Unruly Hubbard Electronically signed By Peg Rodriguez Dictated Date: 12/03/2021 10:56:13 AM Prelim Date: 12/03/2021 11:05:08 AM Sign Date: 12/03/2021 11:05:08 AM Ordering Provider: CONNOR JHAVERI [facility] ([place]) on 09-05-2020 [place] [facility] DATE OF SERVICE: 09/05/2020 CHIEF COMPLAINT: Viral [...] right knee, and she has been taking [id number] to try to help with the pain, however this has not helped too much, so she wanted to come in today to be evaluated. PAST MEDICAL HISTORY: Asthma, high blood pressure, frequent headaches. PAST SURGICAL HISTORY: Abdominal, orthopedic. CURRENT MEDICATIONS: Reviewed and considered. ALLERGIES: To LISINOPRIL, PERCOCET, and LATEX. SOCIAL HISTORY: Denies alcohol and tobacco use. REVIEW OF SYSTEMS: [facility] PATIENT NAME: CADEN LLAMAS [address] [facility] [address] Pérez MEDICAL REC #: [id number] [place] [address] [place] [facility] PHYSICIAN General: Denies fevers, chills, body aches. Respiratory: [...] Patient has full range of motion of [facility] PATIENT NAME: CADEN LLAMAS Dr. Pérez MEDICAL REC #: [id number] [place] [address] [facility] PHYSICIAN the shoulders, but this did reproduce pain. 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 Normal nerve sensation. There [...] today. These were ready both by Dr. Chip Irwin. As for the shoulder: No acute osseous [...] try to help with pain, and if [facility] PATIENT NAME: CADEN LLAMAS Dr. Pérez MEDICAL REC #: [id number] [place] [address] [facility] PHYSICIAN she is not improving she is to follow up with her primary care doctor. Patient agrees and understands the plan at this time. Patient was stable upon discharge from [facility]. JACY Betancourt/[id number] SSI File#: [id number] END OF DOCUMENT / CHANGE LOG FOLLOWS Last Edited By Seda. Signed By George Skelton #[email or web address] George Skelton #[email or web address] on 09/05/2020 12:23 ET on 09/05/2020 12:23 ET Revision Number - 2 Verified/Reviewed by 09/05/20 1223 EV1 [facility] PATIENT NAME: CADEN LLAMAS [address] [facility] [address] Beto Lopez (more content not included)... Normal [facility] KNEE COMP 4 OR MORE VWS BILo n 09-05-2020 KNEE COMP 4 OR MORE VWS ADRIANE KNEE COMP 4 OR MORE VWS ADRIANE Ordering Physician: George Skelton 09/05/2020 10:23 AM BILATERAL KNEES FIVE VIEWS EACH Clinical Statement: Pain, fall two days ago Comparison: None FINDINGS: On the right, patient has undergone prior total knee arthroplasty. Hardware is intact and normally approximated. There are no abnormal lucencies to indicate infection or loosening. No acute fracture or dislocation. No joint effusion. On the left, moderate tricompartmental degenerative changes are present, greatest within the medial and patellofemoral compartments with joint space narrowing, subchondral cyst formation and marginal osteophytosis. No joint effusion. No fracture. Soft tissues are unremarkable. IMPRESSION: 1. No acute osseous abnormality. 2. Status post right total knee arthroplasty. 3. Moderate tricompartmental osteoarthritis left knee. ---- Electronic Signature on File ---- Signed By: Chip Irwin MD [email or web address] Dictated: 09/05/2020 11:07 AM Signed: 09/05/2020 11:08 AM Reported By: CHIP IRIWN M.D. Signed By: CHIP IRWIN M.D. [facility] SHOULDER MIN 2 VWS RTon 08-14 SHOULDER MIN 2 VWS RT SHOULDER MIN 2 VWS RT Ordering Physician: George Skelton 09/05/2020 10:23 AM RIGHT SHOULDER FOUR VIEWS Clinical Statement: Pain, fall Comparison: None FINDINGS: Bone mineralization is decreased. Patient has undergone prior intramedullary healing and screw fixation of the right humerus. The intramedullary nail is only partially visualized. There is evidence of remote trauma to the proximal humeral shaft. Visualized hardware is intact and there are no abnormal lucencies to indicate infection or loosening. No acute fracture or dislocation. Moderate to severe degenerative changes are present at the glenohumeral joint with joint space narrowing, subchondral sclerosis and prominent marginal osteophyte formation arising from the inferomedial aspect of the humeral head. There is a large subacromial spur. A 5 mm ossicle projects between the spur and humeral head on the Grashey view. Soft tissues are unremarkable. IMPRESSION: Remote posttraumatic and postsurgical changes with advanced osteoarthritis of the glenohumeral joint. No acute osseous abnormality. ---- Electronic Signature on File ---- Signed By: Chip Irwin MD [email or web address] Dictated: 09/05/2020 11:08 AM Signed: 09/05/2020 11:11 AM Reported By: CHIP IRWIN M.D. Signed By: CHIP IRWIN M.D. [facility] Clinical Summary: HMSPatient IDon 09-24-2019 [facility] Work Phone: Office Visit: New - 1st visi t with practice, Rm: 1on 09-24-2019 NEGATED: Highlighted rowTobacco smoking status NHIS Tobacco smoking status NHIS [facility] Work Phone: NEGATED: Highlighted rowTSH Qn of the left shoulder on 09/10/2019 at [facility] Work Phone: Vital Signs Date Time Vital Sign Value Performing Clinician Facility 01-03-2025 10:32-0400 Body height 157.5 cm Moises Malcolm 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 Work Phone: [facility] 01-03-2025 10:32-0400 Body mass index (BMI) [Ratio] 40.97 kg/m2 Moises Malcolm 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 Work Phone: [facility] 01-03-2025 10:32-0400 Body temperature 98.2 [degF] Moises Malcolm 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 Work Phone: [facility] 01-03-2025 10:32-0400 Body weight 101.61 kg Moises Malcolm 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 Work Phone: [facility] 01-03-2025 10:32-0400 Diastolic blood pressure 72 mm[Hg] Moises Malcolm 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 Work Phone: [facility] 01-03-2025 10:32-0400 Heart rate 66 /min Moises Malcolm 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 Work Phone: [facility] 01-03-2025 10:32-0400 Respiratory rate 16 /min Moises Malcolm 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 Work Phone: [facility] 01-03-2025 10:32-0400 SaO2% (BldA) [Mass fraction] 98 % Moises Malcolm 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 Work Phone: [facility] 01-03-2025 10:32-0400 Systolic blood pressure 128 mm[Hg] Moises Yun 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 Work Phone: [facility] 12-28-2024 10:37-0400 Body height 157.5 cm Moises Yun 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 Work Phone: [facility] 12-28-2024 10:37-0400 Body mass index (BMI) [Ratio] 41.15 kg/m2 Moises Yun 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 Work Phone: [facility] 12-28-2024 10:37-0400 Body temperature 98.91 [degF] Moises Yun 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 Work Phone: [facility] 12-28-2024 10:37-0400 Body weight 102.06 kg Moises Yun MUD MIXER HELPER.[facility] Work Phone: [facility] 12-28-2024 10:37-0400 Diastolic blood pressure 78 mm[Hg] Moises Yun 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 Work Phone: [facility] 12-28-2024 10:37-0400 Heart rate 100 /min Moises Yun 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 Work Phone: [facility] 12-28-2024 10:37-0400 Respiratory rate 18 /min Moises Malcolm 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 Work Phone: [facility] 12-28-2024 10:37-0400 SaO2% (BldA) [Mass fraction] 98 % Moises Yun 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 Work Phone: [facility] 12-28-2024 10:37-0400 Systolic blood pressure 126 mm[Hg] Moises Yun 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 Work Phone: [facility] 09-10-2024 08:17-0500 Body mass index (BMI) [Ratio] 40.73 kg/m2 Catie Stevenson MD Work Phone: [facility] 09-10-2024 08:17-0500 Body temperature 97 [degF] Catie Stevenson MD Work Phone: [facility] 09-10-2024 08:17-0500 Body weight 101 kg Catie Stevenson MD Work Phone: [facility] 09-10-2024 08:17-0500 Diastolic blood pressure 83 mm[Hg] Catie Stevenson MD Work Phone: [facility] 09-10-2024 08:17-0500 Heart rate 72 /min Catie Stevenson MD Work Phone: [facility] 09-10-2024 08:17-0500 Respiratory rate 22 /min Catie Stevenson MD Work Phone: [facility] 09-10-2024 08:17-0500 SaO2% (BldA) [Mass fraction] 99 % Catie Stevenson MD Work Phone: [facility] 09-10-2024 08:17-0500 Systolic blood pressure 125 mm[Hg] Catie Stevenson MD Work Phone: [facility] 09-07-2024 09:11-0500 Body mass index (BMI) [Ratio] 40.69 kg/m2 Catie Stevenson MD Work Phone: [facility] 09-07-2024 09:11-0500 Body temperature 97.2 [degF] Catie Stevenson MD Work Phone: [facility] 09-07-2024 09:11-0500 Body weight 100.9 kg Catie Stevenson MD Work Phone: [facility] 09-07-2024 09:11-0500 Diastolic blood pressure 82 mm[Hg] Catie Stevenson MD Work Phone: [facility] 09-07-2024 09:11-0500 Heart rate 69 /min Catie Stevenson MD Work Phone: [facility] 09-07-2024 09:11-0500 Respiratory rate 18 /min Catie Stevenson MD Work Phone: [facility] 09-07-2024 09:11-0500 SaO2% (BldA) [Mass fraction] 97 % Catie Stevenson MD Work Phone: [facility] 09-07-2024 09:11-0500 Systolic blood pressure 132 mm[Hg] Catie Stevenson MD Work Phone: [facility] 08-30-2024 13:26-0500 Body height 157.5 cm Moises Yun 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 Work Phone: [facility] 08-30-2024 13:26-0500 Body mass index (BMI) [Ratio] 40.75 kg/m2 Moises Yun 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 Work Phone: [facility] 08-30-2024 13:26-0500 Body weight 101.06 kg Moises Yun 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 Work Phone: [facility] 08-30-2024 13:26-0500 Diastolic blood pressure 76 mm[Hg] Moises Yun 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 Work Phone: [facility] 08-30-2024 13:26-0500 Heart rate 78 /min Moises Yun 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 Work Phone: [facility] 08-30-2024 13:26-0500 Respiratory rate 18 /min Moises Yun 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 Work Phone: [facility] 08-30-2024 13:26-0500 SaO2% (BldA) [Mass fraction] 100 % Moises Yun 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 Work Phone: [facility] 08-30-2024 13:26-0500 Systolic blood pressure 122 mm[Hg] Moises Yun 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 Work Phone: [facility] 07-07-2024 13:46-0500 Body mass index (BMI) [Ratio] 38.43 kg/m2 Catie Stevenson MD Work Phone: [facility] 07-07-2024 13:46-0500 Body temperature 98.29 [degF] Catie Stevenson MD Work Phone: [facility] 07-07-2024 13:46-0500 Body weight 95.3 kg Catie Stevenson MD Work Phone: [facility] 07-07-2024 13:46-0500 Diastolic blood pressure 88 mm[Hg] Catie Stevenson MD Work Phone: [facility] 07-07-2024 13:46-0500 Heart rate 84 /min Catie Stevenson MD Work Phone: [facility] 07-07-2024 13:46-0500 Respiratory rate 16 /min Catie Stevenson MD Work Phone: [facility] 07-07-2024 13:46-0500 SaO2% (BldA) [Mass fraction] 99 % Catie Stevenson MD Work Phone: [facility] 07-07-2024 13:46-0500 Systolic blood pressure 142 mm[Hg] Catie Stevenson MD Work Phone: [facility] 04-19-2024 14:30-0400 Body height 157.5 cm Moises Yun 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 Work Phone: [facility] 04-19-2024 14:30-0400 Body mass index (BMI) [Ratio] 37.13 kg/m2 Moises Yun 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 Work Phone: [facility] 04-19-2024 14:30-0400 Body weight 92.08 kg Moises Yun 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 Work Phone: [facility] 04-19-2024 14:30-0400 Diastolic blood pressure 76 mm[Hg] Moises Yun 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 Work Phone: [facility] 04-19-2024 14:30-0400 Heart rate 92 /min Moises Yun 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 Work Phone: [facility] 04-19-2024 14:30-0400 Respiratory rate 16 /min Moises Yun 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 Work Phone: [facility] 04-19-2024 14:30-0400 SaO2% (BldA) [Mass fraction] 95 % Moises Yun 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 Work Phone: [facility] 04-19-2024 14:30-0400 Systolic blood pressure 126 mm[Hg] Moises Yun 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 Work Phone: [facility] 03-03-2024 14:41-0400 Body temperature 97.3 [degF] Jeffry Halderman-Byrd PT Work Phone: [facility] 03-03-2024 14:41-0400 Diastolic blood pressure 80 mm[Hg] Jeffry Halderman-Byrd PT Work Phone: [facility] 03-03-2024 14:41-0400 Heart rate 98 /min Jeffry Halderman-Byrd PT Work Phone: [facility] 03-03-2024 14:41-0400 Respiratory rate 16 /min Jeffry Halderman-Byrd PT Work Phone: [facility] 03-03-2024 14:41-0400 SaO2% (BldA) [Mass fraction] 96 % Jeffry Halderman-Byrd PT Work Phone: [facility] 03-03-2024 14:41-0400 Systolic blood pressure 142 mm[Hg] Jeffry Halderman-Byrd PT Work Phone: [facility] 02-29-2024 11:56-0400 Body temperature 97.7 [degF] Evelyn Joslyn AIR SEALING TECHNICIAN Work Phone: [facility] 02-29-2024 11:56-0400 Diastolic blood pressure 82 mm[Hg] Evelyn Joslyn AIR SEALING TECHNICIAN Work Phone: [facility] 02-29-2024 11:56-0400 Heart rate 95 /min Evelyn Joslyn AIR SEALING TECHNICIAN Work Phone: [facility] 02-29-2024 11:56-0400 Respiratory rate 18 /min Evelyn Joslyn AIR SEALING TECHNICIAN Work Phone: [facility] 02-29-2024 11:56-0400 SaO2% (BldA) [Mass fraction] 98 % Evelyn Joslyn AIR SEALING TECHNICIAN Work Phone: [facility] 02-29-2024 11:56-0400 Systolic blood pressure 140 mm[Hg] Evelyn Joslyn AIR SEALING TECHNICIAN Work Phone: [facility] 02-25-2024 12:24-0400 Body temperature 97.59 [degF] Evelyn Joslyn AIR SEALING TECHNICIAN Work Phone: [facility] 02-25-2024 12:24-0400 Diastolic blood pressure 86 mm[Hg] Evelyn Joslyn AIR SEALING TECHNICIAN Work Phone: [facility] 02-25-2024 12:24-0400 Heart rate 100 /min Evelyn Joslyn AIR SEALING TECHNICIAN Work Phone: [facility] 02-25-2024 12:24-0400 Respiratory rate 18 /min Evelyn Joslyn AIR SEALING TECHNICIAN Work Phone: [facility] 02-25-2024 12:24-0400 SaO2% (BldA) [Mass fraction] 99 % Evelyn Joslyn AIR SEALING TECHNICIAN Work Phone: [facility] 02-25-2024 12:24-0400 Systolic blood pressure 126 mm[Hg] Evelyn Joslyn AIR SEALING TECHNICIAN Work Phone: [facility] 02-23-2024 10:19-0400 Body temperature 97 [degF] Evelyn Joslyn AIR SEALING TECHNICIAN Work Phone: [facility] 02-23-2024 10:19-0400 Diastolic blood pressure 84 mm[Hg] Evelyn Joslyn AIR SEALING TECHNICIAN Work Phone: [facility] 02-23-2024 10:19-0400 Heart rate 100 /min Evelyn Joslyn AIR SEALING TECHNICIAN Work Phone: [facility] 02-23-2024 10:19-0400 Respiratory rate 18 /min Evelyn Joslyn AIR SEALING TECHNICIAN Work Phone: [facility] 02-23-2024 10:19-0400 SaO2% (BldA) [Mass fraction] 98 % Evelyn Joslyn AIR SEALING TECHNICIAN Work Phone: [facility] 02-23-2024 10:19-0400 Systolic blood pressure 126 mm[Hg] Evelyn Joslyn AIR SEALING TECHNICIAN Work Phone: [facility] 02-19-2024 10:53-0400 Body temperature 97.7 [degF] Jeffry Halderman-Byrd PT Work Phone: [facility] 02-19-2024 10:53-0400 Diastolic blood pressure 76 mm[Hg] Jeffry Halderman-Byrd PT Work Phone: [facility] 02-19-2024 10:53-0400 Heart rate 99 /min Jeffry Longman-Carson PT Work Phone: [facility] 02-19-2024 10:53-0400 Respiratory rate 16 /min Jeffry Longman-Byrd PT Work Phone: [facility] 02-19-2024 10:53-0400 SaO2% (BldA) [Mass fraction] 96 % Jeffry Halderman-Byrd PT Work Phone: [facility] 02-19-2024 10:53-0400 Systolic blood pressure 134 mm[Hg] Jeffry Halderman-Byrd PT Work Phone: [facility] 02-15-2024 09:50-0400 Body temperature 97.39 [degF] Jeffry Halderman-Byrd PT Work Phone: [facility] 02-15-2024 09:50-0400 Diastolic blood pressure 90 mm[Hg] Jeffry Halderman-Byrd PT Work Phone: [facility] 02-15-2024 09:50-0400 Heart rate 75 /min Jeffry Longman-Byrd PT Work Phone: [facility] 02-15-2024 09:50-0400 Respiratory rate 16 /min Jeffry Koo PT Work Phone: [facility] 02-15-2024 09:50-0400 SaO2% (BldA) [Mass fraction] 99 % Jeffry Jesus-Carson PT Work Phone: [facility] 02-15-2024 09:50-0400 Systolic blood pressure 153 mm[Hg] Jeffry Jesus-Carson PT Work Phone: [facility] 02-12-2024 11:20-0400 Body temperature 97.3 [degF] Evelyn Joslyn AIR SEALING TECHNICIAN Work Phone: [facility] 02-12-2024 11:20-0400 Diastolic blood pressure 86 mm[Hg] Evelyn Joslyn AIR SEALING TECHNICIAN Work Phone: [facility] 02-12-2024 11:20-0400 Heart rate 84 /min Evelyn Joslyn AIR SEALING TECHNICIAN Work Phone: [facility] 02-12-2024 11:20-0400 Respiratory rate 18 /min Evelyn Joslyn AIR SEALING TECHNICIAN Work Phone: [facility] 02-12-2024 11:20-0400 SaO2% (BldA) [Mass fraction] 98 % Evelyn Joslyn AIR SEALING TECHNICIAN Work Phone: [facility] 02-12-2024 11:20-0400 Systolic blood pressure 142 mm[Hg] Evelyn Joslyn AIR SEALING TECHNICIAN Work Phone: [facility] 02-10-2024 15:13-0400 Body temperature 97.39 [degF] Jeffry Koo PT Work Phone: [facility] 02-10-2024 15:13-0400 Diastolic blood pressure 94 mm[Hg] Jeffry Koo PT Work Phone: [facility] 02-10-2024 15:13-0400 Heart rate 96 /min Jeffry Koo PT Work Phone: [facility] 02-10-2024 15:13-0400 Respiratory rate 16 /min Jeffry Koo PT Work Phone: [facility] 02-10-2024 15:13-0400 SaO2% (BldA) [Mass fraction] 99 % Jeffry Jesus-Byrd PT Work Phone: [facility] 02-10-2024 15:13-0400 Systolic blood pressure 164 mm[Hg] Jeffry Jesus-Byrd PT Work Phone: [facility] 02-08-2024 15:02-0400 Body temperature 98.29 [degF] Jeffry Jesus-Byrd PT Work Phone: [facility] 02-08-2024 15:02-0400 Diastolic blood pressure 99 mm[Hg] Jeffry Jesus-Byrd PT Work Phone: [facility] 02-08-2024 15:02-0400 Heart rate 87 /min Jeffry Jesus-Carson PT Work Phone: [facility] 02-08-2024 15:02-0400 Respiratory rate 16 /min Jeffry Jesus-Carson PT Work Phone: [facility] 02-08-2024 15:02-0400 SaO2% (BldA) [Mass fraction] 97 % Jeffry Jesus-Carson PT Work Phone: [facility] 02-08-2024 15:02-0400 Systolic blood pressure 150 mm[Hg] Jeffry Jesus-Byrd PT Work Phone: [facility] 02-06-2024 14:40-0400 Body temperature 97.39 [degF] Shonna Roy PT Work Phone: [facility] 02-06-2024 14:40-0400 Diastolic blood pressure 80 mm[Hg] Shonna Roy PT Work Phone: [facility] 02-06-2024 14:40-0400 Heart rate 72 /min Shonna Roy PT Work Phone: [facility] 02-06-2024 14:40-0400 Respiratory rate 20 /min Shonna Roy PT Work Phone: [facility] Comment on above: panick attack per pt 02-06-2024 14:40-0400 SaO2% (BldA) [Mass fraction] 98 % Shonna Roy PT Work Phone: [facility] 02-06-2024 14:40-0400 Systolic blood pressure 128 mm[Hg] Shonna Roy PT Work Phone: [facility] 01-27-2024 15:15-0400 Diastolic blood pressure 100 mm[Hg] Pacc 1 Work Phone: [facility] 01-27-2024 15:15-0400 Systolic blood pressure 142 mm[Hg] Pacc 1 Work Phone: [facility] 01-27-2024 14:31-0400 Body height 157.5 cm Pacc 1 Work Phone: [facility] 01-27-2024 14:31-0400 Body mass index (BMI) [Ratio] 40.6 kg/m2 Pacc 1 Work Phone: [facility] 01-27-2024 14:31-0400 Body temperature 98.1 [degF] Pacc 1 Work Phone: [facility] 01-27-2024 14:31-0400 Body weight 100.7 kg Pacc 1 Work Phone: [facility] 01-27-2024 14:31-0400 Heart rate 95 /min Pacc 1 Work Phone: [facility] 01-27-2024 14:31-0400 Respiratory rate 14 /min Pacc 1 Work Phone: [facility] 01-27-2024 14:31-0400 SaO2% (BldA) [Mass fraction] 100 % Pacc 1 Work Phone: [facility] 12-08-2023 10:16-0400 Diastolic blood pressure 86 mm[Hg] Moises Malcolm APRN.HUMAN MACHINE INTERFACE ENGINEER Work Phone: [facility] 12-08-2023 10:16-0400 Systolic blood pressure 124 mm[Hg] Moises Yun 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 Work Phone: [facility] 12-08-2023 09:43-0400 Body height 158.1 cm Moises Yun 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 Work Phone: [facility] 12-08-2023 09:43-0400 Body mass index (BMI) [Ratio] 42.02 kg/m2 Moises Yun 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 Work Phone: [facility] 12-08-2023 09:43-0400 Body temperature 98.2 [degF] Moises Yun 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 Work Phone: [facility] 12-08-2023 09:43-0400 Body weight 105.05 kg Moises Yun 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 Work Phone: [facility] 12-08-2023 09:43-0400 Heart rate 82 /min Moises Yun 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 Work Phone: [facility] 12-08-2023 09:43-0400 Respiratory rate 18 /min Moises Yun 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 Work Phone: [facility] 12-08-2023 09:43-0400 SaO2% (BldA) [Mass fraction] 98 % Moises Yun 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 Work Phone: [facility] 10-26-2023 15:01-0400 Diastolic blood pressure 80 mm[Hg] Moises Yun 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 Work Phone: [facility] 10-26-2023 15:01-0400 Systolic blood pressure 132 mm[Hg] Moises Yun 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 Work Phone: [facility] 10-26-2023 14:36-0400 Body height 158.1 cm Moises Yun 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 Work Phone: [facility] 10-26-2023 14:36-0400 Body temperature 98.2 [degF] Moises Yun 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 Work Phone: [facility] 10-26-2023 14:36-0400 Body weight 107.05 kg Moises Yun 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 Work Phone: [facility] 10-26-2023 14:36-0400 Heart rate 69 /min Moises Yun 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 Work Phone: [facility] 10-26-2023 14:36-0400 Respiratory rate 18 /min Moises Yun 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 Work Phone: [facility] 10-26-2023 14:36-0400 SaO2% (BldA) [Mass fraction] 98 % Moises Yun 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 Work Phone: [facility] 09-19-2023 11:48-0500 Body temperature 98.2 [degF] No Primary Care Physician [facility] 09-19-2023 11:48-0500 Diastolic blood pressure 86 mm[Hg] No Primary Care Physician [facility] 09-19-2023 11:48-0500 Heart rate 78 /min No Primary Care Physician [facility] 09-19-2023 11:48-0500 Respiratory rate 16 /min No Primary Care Physician [facility] 09-19-2023 11:48-0500 SaO2% (BldA) [Mass fraction] 99 % No Primary Care Physician [facility] 09-19-2023 11:48-0500 Systolic blood pressure 155 mm[Hg] No Primary Care Physician [facility] 09-19-2023 10:52-0500 Body height 157.48 cm No Primary Care Physician [facility] 09-19-2023 10:52-0500 Body mass index (BMI) [Ratio] 43.5 kg/m2 No Primary Care Physician [facility] 09-19-2023 10:52-0500 Body weight 108.09 kg No Primary Care Physician [facility] 08-24-2023 08:05-0500 Body temperature 98.2 [degF] No Primary Care Physician [facility] 08-24-2023 08:05-0500 Diastolic blood pressure 80 mm[Hg] No Primary Care Physician [facility] 08-24-2023 08:05-0500 Heart rate 88 /min No Primary Care Physician [facility] 08-24-2023 08:05-0500 Respiratory rate 14 /min No Primary Care Physician [facility] 08-24-2023 08:05-0500 SaO2% (BldA) [Mass fraction] 98 % No Primary Care Physician [facility] 08-24-2023 08:05-0500 Systolic blood pressure 126 mm[Hg] No Primary Care Physician [facility] 04-16-2023 08:34-0400 Body height 158.1 cm Moises Yun 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 Work Phone: [facility] 04-16-2023 08:34-0400 Body temperature 97.81 [degF] Moises Yun 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 Work Phone: [facility] 04-16-2023 08:34-0400 Body weight 112.04 kg Moises Yun 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 Work Phone: [facility] 04-16-2023 08:34-0400 Diastolic blood pressure 78 mm[Hg] Moises Yun 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 Work Phone: [facility] 04-16-2023 08:34-0400 Heart rate 73 /min Moises Yun 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 Work Phone: [facility] 04-16-2023 08:34-0400 Respiratory rate 18 /min Moises Yun 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 Work Phone: [facility] 04-16-2023 08:34-0400 SaO2% (BldA) [Mass fraction] 98 % Moises Yun 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 Work Phone: [facility] 04-16-2023 08:34-0400 Systolic blood pressure 128 mm[Hg] Moises Yun 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 Work Phone: [facility] 03-30-2023 10:55-0400 Body height 157.[address] Ashleigh Garcia Work Phone: [facility] 03-30-2023 10:55-0400 Body mass index (BMI) [Ratio] 43.9 kg/m2 Dr. Ashleigh Garcia Work Phone: [facility] 03-30-2023 10:55-0400 Body temperature 97.7 [degF] Dr. Ashleigh Garcia Work Phone: [facility] 03-30-2023 10:55-0400 Body weight 108.[address] Ashleigh Garcia Work Phone: [facility] 03-30-2023 10:55-0400 Diastolic blood pressure 81 mm[Hg] Dr. Ashleigh Garcia Work Phone: 9(317)264-848507 [place] [address] 03-30-2023 10:55-0400 Heart rate 108 /min Dr. Ashleigh Garica Work Phone: 3(946)000-921107 [place] [address] 03-30-2023 10:55-0400 Respiratory rate 16 /min Dr. Ashleigh Garcia Work Phone: [facility] 03-30-2023 10:55-0400 SaO2% (BldA) [Mass fraction] 92 % Dr. Ashleigh Garcia Work Phone: [facility] 03-30-2023 10:55-0400 Systolic blood pressure 133 mm[Hg] Dr. Ashleigh Garcia Work Phone: [facility] 03-17-2023 17:05-0400 Body temperature 97.7 [degF] Dr. Ashleigh Garcia Work Phone: [facility] 03-17-2023 17:05-0400 Diastolic blood pressure 44 mm[Hg] Dr. Ashleigh Garcia Work Phone: [facility] 03-17-2023 17:05-0400 Heart rate 100 /min Dr. Ashleigh Garcia Work Phone: [facility] 03-17-2023 17:05-0400 Respiratory rate 14 /min Dr. Ashleigh Garcia Work Phone: [facility] 03-17-2023 17:05-0400 SaO2% (BldA) [Mass fraction] 96 % Dr. Ashleigh Garcia Work Phone: [facility] 03-17-2023 17:05-0400 Systolic blood pressure 136 mm[Hg] Dr. Ashleigh Garcia Work Phone: [facility] 02-12-2023 10:08-0400 Diastolic blood pressure 98 mm[Hg] Dr. Ashleigh Garcia Work Phone: 9(531)833-734607 [place] [address] 02-12-2023 10:08-0400 Heart rate 76 /min Dr. Ashleigh Garcia Work Phone: 5(204)001-319207 [place] [address] 02-12-2023 10:08-0400 Respiratory rate 19 /min Dr. Ashleigh Garcia Work Phone: 5(241)087-709307 [place] [address] 02-12-2023 10:08-0400 SaO2% (BldA) [Mass fraction] 97 % Dr. Ashleigh Garcia Work Phone: 4(533)187-865607 [place] [address] 02-12-2023 10:08-0400 Systolic blood pressure 152 mm[Hg] Dr. Ashleigh Garcia Work Phone: 0(433)712-605107 [place] [address] 02-12-2023 08:08-0400 Body height 157.[address] Ashleigh Garcia Work Phone: 3(035)901-602007 [place] [address] 02-12-2023 08:08-0400 Body mass index (BMI) [Ratio] 45.6 kg/m2 Dr. Ashleigh Garcia Work Phone: 1(461)017-138507 [place] [address] 02-12-2023 08:08-0400 Body temperature 97.2 [degF] Dr. Ashleigh Garcia Work Phone: 2(191)189-318007 [place] [address] 02-12-2023 08:08-0400 Body weight 113.[address] Ashleigh Garcia Work Phone: [facility] 01-05-2023 08:09-0400 Body height 157.[address] Ashleigh Garcia Work Phone: [facility] 01-05-2023 08:09-0400 Body mass index (BMI) [Ratio] 44.8 kg/m2 Dr. Ashleigh Garcia Work Phone: [facility] 01-05-2023 08:09-0400 Body temperature 98.7 [degF] Dr. Ashleigh Garcia Work Phone: [facility] 01-05-2023 08:09-0400 Body weight 111.[address] Ashleigh Garcia Work Phone: [facility] 01-05-2023 08:09-0400 Diastolic blood pressure 96 mm[Hg] Dr. Ashleigh Gracia Work Phone: 2(693)344-287807 [place] [address] 01-05-2023 08:09-0400 Heart rate 61 /min Dr. Ashleigh Garcia Work Phone: 7(322)983-280163 [place] [address] 01-05-2023 08:09-0400 Respiratory rate 16 /min Dr. Ashleigh Garcia Work Phone: 9(002)880-390063 [place] [address] 01-05-2023 08:09-0400 SaO2% (BldA) [Mass fraction] 98 % Dr. Ashleigh Garcia Work Phone: [facility] 01-05-2023 08:09-0400 Systolic blood pressure 146 mm[Hg] Dr. Ashleigh Garcia Work Phone: 6(135)357-775263 [place] [address] 08-16-2022 02:17-0500 Diastolic blood pressure 93 mm[Hg] Dr. Ashleigh Garcia Work Phone: 4(609)835-178507 [place] [address] 08-16-2022 02:17-0500 Heart rate 64 /min Dr. Ashleigh Garcia Work Phone: [facility] 08-16-2022 02:17-0500 Respiratory rate 15 /min Dr. Ashleigh Garcia Work Phone: 8(562)111-530607 [place] [address] 08-16-2022 02:17-0500 SaO2% (BldA) [Mass fraction] 97 % Dr. Ashleigh Garcia Work Phone: [facility] 08-16-2022 02:17-0500 Systolic blood pressure 137 mm[Hg] Dr. Ashleigh Garcia Work Phone: 4(353)147-636507 [place] [address] 08-15-2022 21:07-0500 Body height 157.[address] Ashleigh Garcia Work Phone: [facility] 08-15-2022 21:07-0500 Body mass index (BMI) [Ratio] 44.8 kg/m2 Dr. Ashleigh Garcia Work Phone: [facility] 08-15-2022 21:07-0500 Body temperature 97.8 [degF] Dr. Ashleigh Garcia Work Phone: [facility] 08-15-2022 21:07-0500 Body weight 111.[address] Ashleigh Garcia Work Phone: [facility] 08-06-2022 09:30-0500 Body mass index (BMI) [Ratio] 44.1 kg/m2 Dr. Ashleigh Garcia Work Phone: [facility] 08-06-2022 09:30-0500 Body weight 112.[address] Ashleigh Garcia Work Phone: [facility] 08-06-2022 09:30-0500 Diastolic blood pressure 84 mm[Hg] Dr. Ashleigh Garcia Work Phone: [facility] 08-06-2022 09:30-0500 Heart rate 84 /min Dr. Ashleigh Garcia Work Phone: [facility] 08-06-2022 09:30-0500 Respiratory rate 18 /min Dr. Ashleigh Garcia Work Phone: [facility] 08-06-2022 09:30-0500 Systolic blood pressure 137 mm[Hg] Dr. Ashleigh Garcia Work Phone: [facility] 07-28-2022 10:11-0500 Body height 158.1 cm Nancy TavarezNetShoesrahel Keecker Work Phone: [employer] Comment on above: [facility] 07-28-2022 10:11-0500 Body mass index (BMI) [Ratio] 45.29 kg/m2 Nancy [employer] [employer] Work Phone: [employer] 07-28-2022 10:11-0500 Body temperature 97.11 [degF] Nancy Aldridge DO Work Phone: [facility] 07-28-2022 10:11-0500 Body weight 113.22 kg Nancy Aldridge DO Work Phone: [facility] 07-28-2022 10:11-0500 Diastolic blood pressure 84 mm[Hg] Nancy Aldridge DO Work Phone: [facility] 07-28-2022 10:11-0500 Heart rate 79 /min Nancy Aldridge DO Work Phone: [facility] 07-28-2022 10:11-0500 Respiratory rate 18 /min Nancy Aldridge DO Work Phone: [facility] 07-28-2022 10:11-0500 Systolic blood pressure 147 mm[Hg] Nancy Aldridge DO Work Phone: [facility] 07-09-2022 02:10-0500 Body height 157.[address] Ashleigh Garcia Work Phone: [facility] Work Phone: 07-09-2022 02:10-0500 Body mass index (BMI) [Ratio] 43.9 kg/m2 Dr. Ashleigh Garcia Work Phone: [facility] 07-09-2022 02:10-0500 Body temperature 97.9 [degF] Dr. Ashleigh Garcia Work Phone: [facility] 07-09-2022 02:10-0500 Body weight 108.[address] Ashleigh Garcia Work Phone: [facility] 07-09-2022 02:10-0500 Diastolic blood pressure 96 mm[Hg] Dr. Ashleigh Garcia Work Phone: [facility] 07-09-2022 02:10-0500 Heart rate 68 /min Dr. Ashleigh Garcia Work Phone: [facility] 07-09-2022 02:10-0500 Respiratory rate 18 /min Dr. Ashleigh Garcia Work Phone: [facility] 07-09-2022 02:10-0500 SaO2% (BldA) [Mass fraction] 100 % Dr. Ashleigh Garcia Work Phone: [facility] 07-09-2022 02:10-0500 Systolic blood pressure 160 mm[Hg] Dr. Ashleigh Garcia Work Phone: 1(308)100-464207 [place] [address] 06-28-2022 04:33-0500 Diastolic blood pressure 73 mm[Hg] Dr. Ashleigh Garcia Work Phone: 4(714)208-871907 [place] [address] 06-28-2022 04:33-0500 Heart rate 74 /min Dr. Ashleigh Garcia Work Phone: 9(001)079-015207 [place] [address] 06-28-2022 04:33-0500 Respiratory rate 16 /min Dr. Ashleigh Garcia Work Phone: [facility] 06-28-2022 04:33-0500 SaO2% (BldA) [Mass fraction] 97 % Dr. Ashleigh Garcia Work Phone: [facility] 06-28-2022 04:33-0500 Systolic blood pressure 114 mm[Hg] Dr. Ashleigh Garcia Work Phone: 7(517)660-405907 [place] [address] 06-28-2022 00:35-0500 Body height 160.[address] Ashleigh Garcia Work Phone: [facility] Work Phone: 06-28-2022 00:35-0500 Body mass index (BMI) [Ratio] 43.7 kg/m2 Dr. Ashliegh Garcia Work Phone: 4(331)471-443507 [place] [address] 06-28-2022 00:35-0500 Body temperature 98.1 [degF] Dr. Ashleigh Garcia Work Phone: [facility] 06-28-2022 00:35-0500 Body weight 111.[address] Ashleigh Garcia Work Phone: 7(643)327-367107 [place] [address] 04-28-2022 13:07-0400 Body height 157.[address] Ashleigh Garcia Work Phone: [facility] Work Phone: 04-28-2022 13:07-0400 Body mass index (BMI) [Ratio] 46.3 kg/m2 Dr. Ashleigh Garcia Work Phone: [facility] 04-28-2022 13:07-0400 Body temperature 98 [degF] Dr. Ashleigh Garcia Work Phone: [facility] 04-28-2022 13:07-0400 Body weight 114.[address] Ashleigh Garcia Work Phone: [facility] 04-28-2022 13:07-0400 Diastolic blood pressure 90 mm[Hg] Dr. Ashleigh Garcia Work Phone: [facility] 04-28-2022 13:07-0400 Heart rate 97 /min Dr. Ashleigh Garcia Work Phone: [facility] 04-28-2022 13:07-0400 Respiratory rate 16 /min Dr. Ashleigh Garcia Work Phone: [facility] 04-28-2022 13:07-0400 SaO2% (BldA) [Mass fraction] 98 % Dr. Ashleigh Garcia Work Phone: [facility] 04-28-2022 13:07-0400 Systolic blood pressure 162 mm[Hg] Dr. Ashleigh Garcia Work Phone: [facility] 03-29-2022 09:28-0400 Body temperature 97.8 [degF] Dr. Ashleigh Garcia Work Phone: [facility] Work Phone: 03-29-2022 09:28-0400 Diastolic blood pressure 74 mm[Hg] Dr. Ashleigh Garcia Work Phone: [facility] Work Phone: 03-29-2022 09:28-0400 Heart rate 81 /min Dr. Ashleigh Garcia Work Phone: [facility] Work Phone: 03-29-2022 09:28-0400 Respiratory rate 14 /min Dr. Ashleigh Garcia Work Phone: [facility] Work Phone: 03-29-2022 09:28-0400 SaO2% (BldA) [Mass fraction] 99 % Dr. Ashleigh Garcia Work Phone: [facility] Work Phone: 03-29-2022 09:28-0400 Systolic blood pressure 136 mm[Hg] Dr. Ashleigh Garcia Work Phone: [facility] Work Phone: 02-20-2022 12:07-0400 Diastolic blood pressure 80 mm[Hg] INDIRA PALENCIA MD [facility] 02-20-2022 12:07-0400 Heart rate 86 /min INDIRA PALENCIA MD [facility] 02-20-2022 12:07-0400 Respiratory rate 16 /min INDIRA PALENCIA MD [facility] 02-20-2022 12:07-0400 Systolic blood pressure 170 mm[Hg] INDIRA PALENCIA MD [facility] 02-20-2022 10:25-0400 Body height 157 cm INIDRA PALENCIA MD [facility] 02-20-2022 10:25-0400 Body temperature 98.42 [degF] INDIRA PALENCIA MD [facility] 02-20-2022 10:25-0400 Body weight 111.3 kg INDIRA PALENCIA MD [facility] 02-20-2022 10:25-0400 Diastolic blood pressure 73 mm[Hg] INDIRA PALENCIA MD [facility] 02-20-2022 10:25-0400 Heart rate 70 /min INDIRA PALENCIA MD [facility] 02-20-2022 10:25-0400 Respiratory rate 16 /min INDIRA PALENCIA MD [facility] 02-20-2022 10:25-0400 Systolic blood pressure 136 mm[Hg] INDIRA PALENCIA MD [facility] 02-13-2022 10:10-0400 Body temperature 98.42 [degF] DR KORI HEATON DO [facility] 02-13-2022 10:10-0400 Body weight 111.[address] KORI HEATON DO [facility] 02-13-2022 10:10-0400 Diastolic blood pressure 78 mm[Hg] DR KORI HEATON DO [facility] 02-13-2022 10:10-0400 Heart rate 67 /min DR KORI HEATON DO [facility] 02-13-2022 10:10-0400 Respiratory rate 16 /min DR KORI HEATON DO [facility] 02-13-2022 10:10-0400 Systolic blood pressure 151 mm[Hg] DR KORI HEATON DO [facility] NEGATED: Highlighted [id number] 09:05-0400 BMI (Body Mass Index) 42.95 kg/m2 Hinaluis Bluntley AT [facility] Work Phone: NEGATED: Highlighted [id number] 09:05-0400 Body weight 106 kg Hina Lily AT [facility] Work Phone: NEGATED: Highlighted [id number] 09:05-0400 Body weight 106.14 kg Hina Bautista AT [facility] Work Phone: NEGATED: Highlighted [id number] 09:05-0400 BP Diastolic 100 mm[Hg] Hina Bautista AT [facility] Work Phone: NEGATED: Highlighted [id number] 09:05-0400 BP Diastolic 103 mm[Hg] Hina Bautista AT [facility] Work Phone: NEGATED: Highlighted [id number] 09:05-0400 BP Systolic 199 mm[Hg] Hina Bautista AT [facility] Work Phone: NEGATED: Highlighted [id number] 09:05-0400 BP Systolic 180 mm[Hg] Hina Bautista AT [facility] Work Phone: NEGATED: Highlighted [id number] 09:05-0400 Height 157 cm Hina Bautista AT [facility] Work Phone: NEGATED: Highlighted [id number] 09:05-0400 Height 157.48 cm Hina Bautista AT [facility] Work Phone: NEGATED: Highlighted [id number] 09:05-0400 Pulse (Heart Rate) 72 /min Hina Bautista AT [facility] Work Phone: Encounters Encounter Date Encounter Type Care Provider Facility Start: 01-03-2025 End: 01-03-2025 ambulatory MOISES MALCOLM Facility:[facility] Start: 01-03-2025 End: 01-03-2025 Patient encounter procedure Moises Malcolm 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 Work Phone: [facility] Comment on above: Medicare annual well ness visit, subsequent (Primary Dx); Type 2 diabetes mellitus without complication, without long-term current use of insulin (HCC); Moderate recurrent major depression (HCC); Anxiety; Panic attack as reaction to stress; Asthma, unspecified asthma severity, unspecified whether complicated, unspecified whether persistent (HCC); Hypertension, unspecified type; Other polyneuropathy; Encounter for screening mammogram for malignant neoplasm of breast; Asymptomatic menopause; RUTH (obstructive sleep apnea); Class 3 severe obesity with serious comorbidity and body mass index (BMI) of 40.0 to 44.9 in adult, unspecified obesity type (HCC); Stage 3a chronic kidney disease (HCC) Start: 12-28-2024 End: 12-28-2024 Patient encounter procedure Moises Malcolm APRN.CNP Work Phone: [facility] Comment on above: Anxiety (Primary Dx) ; Panic attack as reaction to stress; Type 2 diabetes mellitus without complication, without long-term current use of insulin (HCC); Asthma, unspecified asthma severity, unspecified whether complicated, unspecified whether persistent (HCC) Start: 12-28-2024 End: 12-28-2024 ambulatory MOISES MALCOLM Facility:[facility] Start: 11-24-2024 End: 11-24-2024 Refill Moises Malcolm APRN.HUMAN MACHINE INTERFACE ENGINEER Work Phone: [facility] Comment on above: Refill Request Start: 11-23-2024 End: 11-23-2024 Office outpatient visit 15 minutes Melanie Magana PA-C Work Phone: Orthopaedics Comment on above: Pain due to total le ft knee replacement, subsequent encounter (Primary Dx); Patellar tendinitis of left knee; Pain due to internal orthopedic prosthetic devices, implants and grafts, initial encounter Start: 11-23-2024 End: 11-23-2024 ambulatory UNKNOWN PROVIDER Facility:[facility] Start: 11-23-2024 End: 11-23-2024 Subsequent hospital visit by physician [facility] Work Phone: Radiology Comment on above: Left knee pain, unsp ecified chronicity [M25.562] Start: 11-16-2024 End: 11-16-2024 Orders Only Melanie Magana PA-C Work Phone: Orthopaedics Comment on above: Left knee pain, unsp ecified chronicity (Primary Dx) Start: 09-12-2024 End: 09-12-2024 ambulatory Nhan CROCKER Facility:[facility] Start: 09-10-2024 End: 09-10-2024 ambulatory MOISES MALCOLM Facility:[facility] Start: 09-10-2024 End: 09-10-2024 Office outpatient visit 25 minutes Catie Stevenson MD Work Phone: [facility] Comment on above: Sinobronchitis (Prim francia Dx) Start: 09-07-2024 End: 09-08-2024 Follow-up encounter Catie Stevenson MD Work Phone: [facility] Start: 09-07-2024 End: 09-07-2024 ambulatory MOISES MALCOLM Facility:[facility] Start: 09-07-2024 End: 09-07-2024 Office outpatient visit 25 minutes Catie Stevenson MD Work Phone: [facility] Comment on above: URI, acute (Primary Dx) Start: 09-02-2024 End: 09-02-2024 ambulatory MAKAYLA BRADLEY Facility:[facility] Start: 09-02-2024 End: 09-02-2024 Patient encounter procedure Makayla Bradley MD Work Phone: Orthopaedics Comment on above: Status post total le ft knee replacement (Primary Dx) Start: 09-01-2024 End: 09-01-2024 Telephone encounter Moises Malcolm APRN.HUMAN MACHINE INTERFACE ENGINEER Work Phone: [facility] Comment on above: Medication Authoriza tion (Ramelteon 8 mg ) Start: 08-30-2024 End: 09-16-2024 Follow-up encounter Moises Malcolm APRN.HUMAN MACHINE INTERFACE ENGINEER Work Phone: [facility] Comment on above: Vitamin D deficiency Start: 08-30-2024 End: 08-30-2024 Patient encounter procedure Moises Malcolm APRN.HUMAN MACHINE INTERFACE ENGINEER Work Phone: [facility] Comment on above: Dizziness (Primary D x); Insomnia, unspecified type; Urinary incontinence, unspecified type; Hypertension, unspecified type; Vitamin D deficiency; Hyperlipidemia with target low density lipoprotein (LDL) cholesterol less than 100 mg/dL; Screening for thyroid disorder; Encounter for vision screening Start: 08-30-2024 End: 08-30-2024 Patient encounter status Moises Malcolm APRN.HUMAN MACHINE INTERFACE ENGINEER Work Phone: [facility] Start: 08-30-2024 End: 08-30-2024 ambulatory MOISES MALCOLM Facility:[facility] Start: 08-30-2024 Encounter for examination of eyes and vision without abnormal findings MOISESJULIO C MALCOLM [facility] Start: 08-26-2024 End: 08-26-2024 Telephone encounter Makayla Bradley MD Work Phone: Orthopaedics Comment on above: Appointment Cancelle d Start: 07-07-2024 End: 07-07-2024 Office outpatient visit 25 minutes Catie Stevenson MD Work Phone: [facility] Comment on above: Acute non-recurrent sinusitis, unspecified location (Primary Dx); Sore throat Start: 07-07-2024 End: 07-07-2024 ambulatory MOISES MALCOLM Facility:[facility] Start: 06-08-2024 End: 06-13-2024 Refill Moises Malcolm APRN.HUMAN MACHINE INTERFACE ENGINEER Work Phone: [facility] Comment on above: Refill Request Start: 06-07-2024 End: 06-07-2024 Refill Moises Malcolm APRN.HUMAN MACHINE INTERFACE ENGINEER Work Phone: [facility] Comment on above: Refill Request Start: 05-13-2024 End: 05-18-2024 Refill Melanie Magana PA-C Work Phone: Orthopaedics Comment on above: Refill Request Start: 05-06-2024 End: 05-06-2024 ambulatory MAKAYLA BRADLEY Facility:[facility] Start: 05-06-2024 End: 05-06-2024 Patient encounter procedure Makayla Bradley MD Work Phone: Orthopaedics Comment on above: Aftercare following left knee joint replacement surgery (Primary Dx) Start: 05-03-2024 End: 05-03-2024 ambulatory PAULINA SAGE Facility:[facility] Start: 04-28-2024 End: 05-02-2024 Refill Moises Malcolm APRN.HUMAN MACHINE INTERFACE ENGINEER Work Phone: [facility] Comment on above: Refill Request Start: 04-21-2024 End: 04-21-2024 Telephone encounter Moises Malcolm 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 Work Phone: [facility] Comment on above: Results Rx Refills Start: 04-19-2024 End: 04-19-2024 Patient encounter procedure Moises Malcolm 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 Work Phone: [facility] Comment on above: Insomnia, unspecifie d type (Primary Dx); Stage 2 chronic kidney disease; Hyperlipidemia with target low density lipoprotein (LDL) cholesterol less than 100 mg/dL; Hypertension, unspecified type; Vitamin D deficiency; Screening for thyroid disorder; Encounter for immunization; RUTH (obstructive sleep apnea) Start: 04-19-2024 End: 04-19-2024 ambulatory MOISES Luz YUN Facility:[facility] Start: 04-18-2024 End: 04-18-2024 ambulatory [facility] Facility:[facility] Start: 04-18-2024 End: 04-18-2024 Subsequent hospital visit by physician [facility] Mamm[facility] Comment on above: Encounter for screen ing mammogram for malignant neoplasm of breast [Z12.31] Start: 04-11-2024 End: 04-18-2024 Refill Makayla Bradley MD Work Phone: Orthopaedics Comment on above: Rx Refills Start: 04-01-2024 End: 04-01-2024 Refill Makayla Bradley MD Work Phone: Orthopaedics Comment on above: Rx Refills Start: 03-25-2024 End: 04-08-2024 Refill Makayla Bradley MD Work Phone: Orthopaedics Comment on above: Rx Refills Start: 03-18-2024 End: 03-18-2024 ambulatory MAKAYLA BRADLEY Facility:[facility] Start: 03-18-2024 End: 03-18-2024 Patient encounter procedure Makayla Bradley MD Work Phone: Orthopaedics Comment on above: S/P total knee arthr oplasty, left (Primary Dx); Aftercare following left knee joint replacement surgery Start: 03-16-2024 End: 03-16-2024 Refill Moises Malcolm APRN.HUMAN MACHINE INTERFACE ENGINEER Work Phone: [facility] Comment on above: Refill Request Start: 03-15-2024 End: 03-15-2024 Refill Makayla Bradley MD Work Phone: [facility] Comment on above: Refill Request Start: 03-13-2024 End: 03-13-2024 Emergency department patient visit Jaron Worrell Facility:[facility] Start: 03-09-2024 End: 03-09-2024 ambulatory Sky Alfaro PT Work Phone: [facility] Comment on above: S/P total knee arthr oplasty, left (Primary Dx) Start: 03-03-2024 End: 03-03-2024 Home visit Jeffry Koo PT Work Phone: [facility] Comment on above: PT AGENCY DC W VISIT Start: 02-29-2024 End: 03-01-2024 Refill Makayla Bradley MD Work Phone: Orthopaedics Comment on above: Refill Request AIR SEALING TECHNICIAN ROUTINE Start: 02-25-2024 End: 02-25-2024 Home visit Evelyn Jorgensen AIR SEALING TECHNICIAN Work Phone: [facility] Comment on above: AIR SEALING TECHNICIAN ROUTINE Start: 02-23-2024 End: 02-23-2024 Home visit Evelyn Jorgensen AIR SEALING TECHNICIAN Work Phone: [facility] Comment on above: AIR SEALING TECHNICIAN ROUTINE Start: 02-22-2024 End: 02-22-2024 Home visit Evelyntru Jorgensen AIR SEALING TECHNICIAN Work Phone: [facility] Comment on above: AIR SEALING TECHNICIAN UNMADE VISIT Start: 02-19-2024 Telephone encounter Jeffry Koo PT Work Phone: [facility] Comment on above: Home Care (PT orders ) Home Care (Missed vi sit ) Start: 02-19-2024 End: 02-19-2024 Home visit Jeffry Koo PT Work Phone: [facility] Comment on above: PT ROUTINE Start: 02-17-2024 End: 02-17-2024 Home visit Jeffry Koo PT Work Phone: [facility] Comment on above: PT UNMADE VISIT Start: 02-15-2024 Telephone encounter Jeffry Koo PT Work Phone: [facility] Comment on above: Home Care (OP PT ord ers ) Start: 02-15-2024 End: 02-15-2024 Patient encounter procedure Marcello Lloyd PA-C Work Phone: Orthopaedics Comment on above: S/P total knee arthr oplasty, left (Primary Dx) Start: 02-15-2024 End: 02-15-2024 ambulatory MARCELLO LLOYD Facility:[facility] Start: 02-15-2024 End: 02-15-2024 Subsequent hospital visit by physician [facility] Work Phone: Radiology Comment on above: Left knee pain, unsp ecified chronicity [M25.562] Start: 02-15-2024 End: 02-15-2024 Home visit Jeffry Koo PT Work Phone: [facility] Comment on above: PT ROUTINE Start: 02-12-2024 End: 02-12-2024 Home visit Evelyn Joslyn AIR SEALING TECHNICIAN Work Phone: [facility] Comment on above: AIR SEALING TECHNICIAN ROUTINE Start: 02-11-2024 End: 02-11-2024 Home visit Bella Norwood RN Work Phone: [facility] Comment on above: CARE COORDINATION Start: 02-10-2024 End: 02-10-2024 Home visit Jeffry EthanlilianeGarth PT Work Phone: [facility] Comment on above: PT ROUTINE Start: 02-10-2024 Telephone encounter Jeffry NguyenByrd PT Work Phone: [facility] Comment on above: Home Care Start: 02-08-2024 End: 02-08-2024 Home visit Jeffry EthanlilianeGarth PT Work Phone: [facility] Comment on above: PT ROUTINE Start: 02-08-2024 Telephone encounter Jeffry ToscanodukelilianeGarth PT Work Phone: [facility] Comment on above: Home Care (Elevated BP) Home Care (Dressing removal ) Start: 02-07-2024 Telephone encounter Shonna gooden PT Work Phone: [facility] Comment on above: Home Care Start: 02-06-2024 End: 02-06-2024 Home visit Shonna Roy PT Work Phone: [facility] Comment on above: PT SOC Start: 02-05-2024 Telephone encounter Makayla Bradley MD Work Phone: Orthopaedics Comment on above: Patient Update Start: 02-04-2024 Telephone encounter Makayla Bradley MD Work Phone: [facility] Comment on above: Home Care Patient Question Start: 02-04-2024 End: 02-04-2024 Home visit Javon Kulkarni PT Work Phone: [facility] Comment on above: PT UNMADE VISIT Start: 02-03-2024 ambulatory Marcello Tenorio Work Phone: [place] [facility] Start: 02-03-2024 Telephone encounter Isabella [facility] Comment on above: Home Care (CONFIRMAT ION CALL) Start: 02-02-2024 End: 02-03-2024 ambulatory MAKAYLA BRADLEY Facility:[facility] Start: 01-29-2024 Telephone encounter Carolina Ojeda APRN.CNP Work Phone: Pre Anesthesia Comment on above: Results Start: 01-27-2024 Encounter for other preprocedural examination MAKAYLA BRADLEY [facility] Start: 01-27-2024 End: 01-27-2024 Admission to establishment Pac [facility] 1 Work Phone: Pre Anesthesia Start: 01-27-2024 End: 01-27-2024 ambulatory CAROLINA OJEDA Facility:[facility] Start: 01-27-2024 End: 01-27-2024 Anesthesia consultation Pac [place] 1 Work Phone: Pre Anesthesia Comment on above: Pre-operative examin ation (Primary Dx); Anemia, unspecified type; Cerebrovascular accident (CVA), unspecified mechanism ([facility]); H/O Brain Aneurysm; Other polyneuropathy; Atrial fibrillation, unspecified type ([facility]); Hyperlipidemia with target low density lipoprotein (LDL) cholesterol less than 100 mg/dL; Hypertension, unspecified type; Chest pain of uncertain etiology; Asthma, unspecified asthma severity, unspecified whether complicated, unspecified whether persistent; WEISS (dyspnea on exertion); RUTH (obstructive sleep apnea); Stage 2 chronic kidney disease; Urinary incontinence, unspecified type; Type 2 diabetes mellitus without complication, without long-term current use of insulin ([facility]); Status post total right knee replacement; Anxiety; Morbidly obese ([facility]) Start: 01-27-2024 End: 01-27-2024 Preprocedural examination done Pac [place] 1 Work Phone: [facility] Work Phone: Start: 01-27-2024 Telephone encounter Carolina Oejda APRN.CNP Work Phone: Pre Anesthesia Comment on above: Request Outside [facility] Start: 01-19-2024 Telephone encounter Makayla Bradley MD Work Phone: Orthopaedics Comment on above: Forms Start: 01-19-2024 ambulatory UNKNOWN PROVIDER Facili ty:[facility] Start: 01-19-2024 Encounter for other preprocedural examination UNKNOWN PROVIDER [facility] Start: 01-19-2024 End: 01-19-2024 Patient encounter status [facility] Start: 01-19-2024 End: 01-19-2024 Subsequent hospital visit by physician [facility] Radiology Comment on above: Primary osteoarthrit is of left knee [M17.12] Start: 01-13-2024 Telephone encounter Makayla Bradley MD Work Phone: [address] Comment on above: Pre-Op Teaching Start: 01-11-2024 Orders Only Makayla stewart MD Work Phone: Orthopaedics Comment on above: Primary osteoarthrit is of left knee (Primary Dx) Appointment Start: 01-11-2024 Patient encounter status Aston Bradley MD Work Phone: [facility] Start: 01-08-2024 End: 01-08-2024 ambulatory MAKAYLA BRADLEY Facility:[facility] Start: 01-08-2024 End: 01-08-2024 Patient encounter procedure Makayla Bradley MD Work Phone: Orthopaedics Comment on above: Primary osteoarthrit is of left knee (Primary Dx) Start: 12-09-2023 Telephone encounter Moises Malcolm APRN.HUMAN MACHINE INTERFACE ENGINEER Work Phone: [facility] Comment on above: Results Start: 12-08-2023 End: 12-08-2023 Patient encounter procedure Moises Malcolm APRN.HUMAN MACHINE INTERFACE ENGINEER Work Phone: [facility] Comment on above: Hypertension, unspec ified type (Primary Dx); Insomnia, unspecified type; Type 2 diabetes mellitus without complication, without long-term current use of insulin (HCC); Screening for osteoporosis; Asymptomatic menopause Start: 11-30-2023 End: 11-30-2023 Patient encounter procedure Makayla Bradley MD Work Phone: Orthopaedics Comment on above: Primary osteoarthrit is of left knee (Primary Dx) Start: 11-30-2023 [facility]ulatory [facility] Start: 11-30-2023 End: 11-30-2023 Subsequent hospital visit by physician [employer] Krishna Gove Arcenio Work Phone: Radiology Comment on above: Pain in both knees, unspecified chronicity [M25.561, M25.562] Start: 11-02-2023 Telephone encounter Moises Malcolm APRN.HUMAN MACHINE INTERFACE ENGINEER Work Phone: [facility] Comment on above: Results Start: 10-26-2023 End: 10-26-2023 Patient encounter procedure Moises Malcolm 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 Work Phone: [facility] Comment on above: Type 2 diabetes priscila itus without complication, without long- term current use of insulin (HCC) (Primary Dx); Hypertension, unspecified type; Atrial fibrillation, unspecified type ([facility]); RUTH (obstructive sleep apnea); Other polyneuropathy; Insomnia, unspecified type; Morbidly obese ([facility]) Start: 10-21-2023 Telephone encounter Moises Malcolm APRN.HUMAN MACHINE INTERFACE ENGINEER Work Phone: [facility] Comment on above: No Show (Pt no showe d for appt on 10/21/23) Start: 10-17-2023 Refill Moises paris APRN.HUMAN MACHINE INTERFACE ENGINEER Work Phone: [facility] Comment on above: Refill Request Start: 10-05-2023 Telephone encounter Juan Mata MD Work Phone: [facility] Comment on above: Appointment Request Start: 09-19-2023 End: 09-19-2023 Emergency department patient visit No Primary Care Physician [facility] Work Phone: Start: 08-24-2023 End: 08-24-2023 Patient encounter procedure No Primary Care Physician [facility] Work Phone: Start: 06-19-2023 End: 06-19-2023 Patient encounter procedure No Primary Care Physician [facility] Work Phone: Start: 05-29-2023 End: 05-29-2023 Subsequent hospital visit by physician [facility] Work Phone: Radiology Comment on above: Heel stella, right [M7 7.31] Start: 04-16-2023 End: 04-16-2023 Patient encounter procedure Moises Malcolm APRN.HUMAN MACHINE INTERFACE ENGINEER Work Phone: [facility] Comment on above: Incontinence of fece s, unspecified fecal incontinence type (Primary Dx); Encounter for medical examination to establish care; Hypertension, unspecified type; Asthma, unspecified asthma severity, unspecified whether complicated, unspecified whether persistent; Hyperlipidemia with target low density lipoprotein (LDL) cholesterol less than 100 mg/dL; Atrial fibrillation, unspecified type (HCC); Morbidly obese (HCC); Frequent UTI; Vitamin D deficiency; Hx of diabetes mellitus; Encounter for immunization; Encounter for screening mammogram for malignant neoplasm of breast; Screening for thyroid disorder; Encounter for hepatitis C screening test for low risk patient Start: 04-16-2023 End: 04-16-2023 Patient encounter status Moises Malcolm APRN.HUMAN MACHINE INTERFACE ENGINEER Work Phone: [facility] Work Phone: Start: 03-30-2023 End: 03-30-[address] Ashleigh Garcia Work Phone: [facility] Work Phone: Start: 03-30-2023 End: 03-30-[address] Ashleigh Garcia Work Phone: [facility] Work Phone: Start: 03-17-2023 End: 03-17-[address] Ashleigh Garcia Work Phone: [facility] Work Phone: Start: 02-12-2023 End: 02-12-2023 Emergency department patient visit Dr. Ashleigh Garcia Work Phone: [facility] Work Phone: Start: 01-05-2023 End: 01-05-[address] Ashleigh Garcia Work Phone: [facility] Work Phone: Start: 01-05-2023 End: 01-05-[address] [facility] Work [facility]: Start: 01-05-2023 End: 01-05-[address] Ashleigh Garcia Work Phone: [facility] Work Phone: Start: 12-11-2022 End: 12-11-[address] Ashleigh Garcia Work Phone: [facility] Work Phone: Start: 12-11-2022 End: 12-11-[address] [facility] Start: 09-19-2022 Telephone encounter Nancy Pozsg ay DO Work Phone: [facility] Comment on above: Appointment Start: 09-17-2022 Telephone encounter Tanisha mata MUD MIXER HELPER - HUMAN MACHINE INTERFACE ENGINEER Work Phone: [facility] [place] Comment on above: Other (EGD CHART RORY CK ) Start: 09-16-2022 ambulatory Althea Le MUD MIXER HELPER - [employer]RE[employer] SAL[employer] BROKER Work Phone: [facility] [place] Start: 09-12-2022 Telephone encounter Nancy Pozsg ay DO Work Phone: [facility] Start: 09-01-2022 End: 09-01-[address] Ashleigh Garcia Work Phone: [facility] Work Phone: Start: 09-01-2022 End: 09-01-[address] Ashleigh Garcia Work Phone: [facility]Labor[facility], Phy Office 3rd Flr Start: 08-28-2022 Non-patient / Non-visit Dr. Olivier Garcia Work Phone: [facility] Start: 08-28-2022 Non-patient / Non-visit Dr. Olivier Garcia Work Phone: [facility] Start: 08-28-2022 End: 08-28-[address] Ashleigh Garcia Work Phone: [facility]Cardi[facility] Start: 08-21-2022 Documentation procedure Nancy toribio DO Work Phone: [facility] [place] Comment on above: EGD (EGD ORDER ) Start: 08-15-2022 End: 08-16-2022 Emergency department patient visit Dr. Ashleigh Garcia Work Phone: [facility] Start: 08-06-[address] Ainsley Garcia Work Phone: [facility] Start: 08-06-2022 End: 08-06-2022 Admission to same day surgery center Dr. Ashleigh Garcia Work Phone: [facility] Start: 08-06-2022 End: 08-06-[address] Ashleigh Garcia Work Phone: [facility] Start: 07-29-2022 Telephone encounter Nancy mcginnis DO Work Phone: [facility] [place] Comment on above: Financial File 2022; Surgery Scheduling (Initial Scheduling - Orders Pended); Withdrawal (Opted out of surgical program ) Financial File 2022; Surgery Scheduling (Initial Scheduling - Orders Pended) Start: 07-28-2022 End: 07-28-2022 Office outpatient new 45 minutes Nancy Aldridge DO Work Phone: [facility] [place] Comment on above: Primary hypertension ; High cholesterol; Gastroesophageal reflux disease without esophagitis; Morbid obesity with BMI of 45.0-49.9, adult ([facility] ([facility]) Start: 07-17-2022 End: 07-17-[address] Ashleigh Garcia Work Phone: [facility] Office 3rd Flr Start: 07-09-2022 End: 07-09-2022 Emergency department patient visit Dr[facility] Ashleigh Gracia [facility] Start: 07-02-2022 End: 07-02-[address] Ashleigh Garcia Work Phone: [facility] Work Phone: Start: 07-02-2022 End: 07-02-[address] Ashleigh Garcia Work Phone: [facility] Office 3rd Flr Start: 06-28-2022 End: 06-28-2022 Emergency department patient visit [facility] Start: 06-12-2022 End: 06-12-[address] Ashleigh Garcia Work Phone: [facility] Work Phone: Start: 06-12-2022 End: 06-12-[address] Ashleigh Garcia Work Phone: [facility] Office 3rd Flr Start: 04-28-2022 End: 04-28-2022 Emergency department patient visit Dr[facility] Ashleigh [facility] Start: 04-10-2022 End: 04-10-[address] Ashleigh Garcia Work Phone: [facility] Start: 03-29-2022 End: 03-29-[address] Ashleigh Garcia Work Phone: [facility] Start: 02-20-2022 End: 02-20-2022 Emergency department patient visit DR. ÁNGEL GARCIA MD. Facility:[facility] Start: 02-20-2022 End: 02-20-2022 Emergency department patient visit INDIRA PALENCIA MD [facility] Start: 02-13-2022 End: 02-13-2022 Emergency department patient visit DR. ÁNGEL GARCIA MD. Facility:A Start: 02-13-2022 End: 02-13-2022 Emergency department patient visit DR KORI HEATON DO [facility] Start: 02-04-2022 End: 02-04-[address] Ashleigh Garcia Work Phone: [facility] Start: 12-23-2021 End: 12-23-2021 Patient encounter procedure [facility] Phy Office 3rd Flr Start: 12-03-2021 End: 12-03-2021 Emergency department patient visit DR. ÁNGEL GARCIA MD. Facility:B Start: 09-18-2021 End: 09-18-2021 Patient encounter procedure [facility] Start: 09-05-2020 Patient encounter procedure George Skelton Work Phone: [facility] Start: 09-05-2020 Progress Note George rivera Work Phone: [facility] Start: 09-24-2019 End: 09-24-2019 Patient encounter procedure Avelina Peralta PA-C Work Phone: [facility] Work Phone: Start: 09-24-2019 End: 09-24-2019 Pt evaluation Avelina Peralta PA-C Work Phone: [facility] Work Phone: Procedures Date Procedure Procedure Detail Performing Clinician Start: 01-03-2025 Hemoglobin A1c/Hemoglobin.total in Blood Moises Malcolm 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 Work Phone: Start: 12-28-2024 Urine albumin quantitative Moises Malcolm 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 Work Phone: Start: 09-10-2024 Lipid 1996 panel - S juan or Plasma Makayla Bradley MD Work Phone: Start: 08-30-2024 Urnls dip stick/tabl et rgnt auto w/o microscopy Moises Malcolm APRN.HUMAN MACHINE INTERFACE ENGINEER Work Phone: Start: 07-07-2024 STREP A MOLECULAR (POC) Renetta Harmon APRN.HUMAN MACHINE INTERFACE ENGINEER Work Phone: Start: 02-15-2024 Radiologic examinati on knee 3 views Marcello Lloyd PA-C Work Phone: Start: 01-19-2024 Ct lower extremity w /o contrast material Melanie Magana PA-C Work Phone: Start: 11-30-2023 Arthrocentesis aspir &/inj major jt/bursa w/o us Makayla Bradley MD Work Phone: Start: 11-30-2023 Radiologic examinati on knee 3 views Marcello Lloyd PA-C Work Phone: Start: 10-26-2023 Hemoglobin A1c/Hemoglobin.total in Blood Moises Malcolm APRN.HUMAN MACHINE INTERFACE ENGINEER Work Phone: Start: 09-19-2023 Radiologic examinati on of knee No Primary Care Physician Start: 04-16-2023 INFLUENZA VACCINE, P RSV FREE, AGE 65+ YR, HIGH DOSE, QUADRIVALENT (FLUZONE HIGH-DOSE) Moises Malcolm APRN.HUMAN MACHINE INTERFACE ENGINEER Work Phone: Start: 03-30-2023 Plain chest X-ray Dr. Ainsley Garcia Work Phone: Start: 02-12-2023 Plain chest X-ray Dr. Ainsley Garcia Work Phone: Start: 01-05-[address] Ashleigh haddad Work Phone: Start: 08-28-2022 Cardiovascular stres s test using pharmacologic stress agent Dr. Ashleigh Garcia Work Phone: Start: 08-15-2022 CT angiography of ch est with contrast Dr. Ashleigh Garcia Work Phone: Start: 08-15-2022 Plain chest X-ray Dr. Ainsley Garcia Work Phone: Start: 07-09-2022 Plain x-ray of wrist Dr Danielle Garcia Work Phone: Start: 07-09-2022 Radiologic examinati on of knee Dr. Ashleigh Garcia Work Phone: Start: 06-28-2022 CT angiography of ch est with contrast Dr. Ashleigh Garcia Work Phone: Start: 06-28-2022 Plain chest X-ray Dr. Ainsley Garcia Work Phone: Start: 05-01-2022 Colonoscopy Moises N agel 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 Work Phone: Start: 04-28-2022 Plain chest X-ray Dr. Ainsley Garcia Work Phone: Start: 04-28-2022 CT angiography of ne ck vessels Dr. Ashleigh Garcia Work Phone: Start: 04-28-2022 CT cervical spine wi thout contrast Dr. Ashleigh Garcia Work Phone: Start: 04-28-2022 CT of head without contrast Dr. Ashleigh Garcia Work Phone: Start: 09-18-2021 End: 09-18-2021 Screening mammography Start: 09-24-2019 End: 09-24-2019 Blood pressure outside of normal parameters - follow-up not documented Avelina Peralta PA-C Work Phone: Start: 09-24-2019 End: 09-24-2019 BMI documented as above normal parameters - follow-up documented Avelina Peralta PA-C Work Phone: Start: 09-24-2019 End: 09-24-2019 Documentation of current medications Avelina Peralta PA-C Work Phone: Start: 09-24-2019 End: 09-24-2019 Fall plan of care docd Avelina Urias Bulmaro urias PA-C Work Phone: Start: 09-24-2019 End: 09-24-2019 Fall risk assessment docd Avelina Urias Krzysztof talley PA-C Work Phone: Start: 09-24-2019 End: 09-24-2019 Osteoarthritis assess Avelina Peralta PA-C Work Phone: Start: 09-24-2019 End: 09-24-2019 Pain assessment documented as positive - follow-up documented Avelina Peralta PA-C Work Phone: Start: 09-24-2019 End: 09-24-2019 Ptfalls assess-docd ge2>/yr Avelina Peralta PA-C Work Phone: Start: 09-24-2019 End: 09-24-2019 Radex shoulder complete minimum 2 views Avelina Peralta PA-C Work Phone: Start: 09-24-2019 End: 09-24-2019 Tobacco non-user Avelina Peralta PA-C Work Phone: Start: 05-28-2019 Mammography George Charles pj Work Phone: Start: 07-13-[address] KORI HEATON DO Comment on above: right knee Abdominal hysterectomy DR NAINA HEATON DO Appendectomy DR KORI HEATON DO Cholecystectomy DR KORI ARREAGA DO Decompression of med edilberto nerve DR KORI HEATON DO Comment on above: bilateral Glenohumeral joint structure (body structure) DR KORI HEATON DO Comment on above: shoulder surgery pos t traumatic injury right shoulder Intracranial aneurys m (disorder) DR KORI HEATON DO NEGATED: Highlighted rowStart: 09-24-2019 End: 09-24-2019 Documentation of current medications Hina Bautista AT Plan of Treatment Date Care Activity Detail Author Start: 09-10-2029 Lipid panel Lipid Screening [facility] Start: 04-04-2029 DTaP/Tdap/Td Vaccines (3 - Td or Tdap) DTaP/Tdap/Td Vaccines (3 - Td or Tdap) [facility] Start: 04-04-2029 Urine microalbumin profile DTaP,Tdap,Td Vaccine (3 - Td or Tdap) [facility] Start: 09-11-2027 Diabetes Screening Diabetes Screening [facility] Start: 05-01-2027 Screening for malignant neoplasm of colon [facility] Start: 01-03-2026 Annual PCP Team Chronic Disease Visit Annual PCP Team Chronic Disease Visit [facility] Start: 01-03-2026 RSV Vaccine (1 - Risk 60-74 years 1-dose series) RSV Vaccine (1 - Risk 60-74 years 1-dose series) [facility] Comment on above: Postponed from 2014 (Declined at t his time) Start: 12-28-2025 Annual PCP Team Chronic Disease Visit Annual PCP Team Chronic Disease Visit [facility] Start: 12-28-2025 Hepatitis B screening Urine Albumin:Creatinine Ratio [facility] Start: 09-10-2025 Complete blood count Hemoglobin/Hematocrit [facility] Start: 09-10-2025 Creatinine measurement Serum Creatinine [facility] Start: 09-10-2025 Hepatitis B surface antibody level LDL Cholesterol [facility] Start: 08-30-2025 Annual PCP Team Chronic Disease Visit Annual PCP Team Chronic Disease Visit [facility] Start: 08-30-2025 BP Controlled (<130/80) BP Controlled (<130/80) [facility] Start: 07-05-2025 Hemoglobin A1c measurement HbA1C [facility] Start: 04-19-2025 Annual PCP Team Chronic Disease Visit Annual PCP Team Chronic Disease Visit [facility] Start: 04-19-2025 BP Controlled (<130/80) BP Controlled (<130/80) [facility] Start: 04-19-2025 Shingrix Vaccine (1 of 2) Shingrix Vaccine (1 of 2) [facility] Comment on above: Postponed from 01/07/2004 (Declined at t his time) Start: 04-18-2025 Screening for malignant neoplasm of breast Mammogram Screening [facility] Start: 02-02-2025 Creatinine measurement Serum Creatinine [facility] Start: 01-31-2025 End: 01-31-2025 ambulatory 01/31/2025 9:40 AM EDT [facility] [address] [place] [address] Moises Malcolm, 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 [address] [place], [place] [id number] weight l;oss [facility] Comment on above: weight l;oss Start: 01-26-2025 Complete blood count Hemoglobin/Hematocrit [facility] Start: 01-26-2025 Creatinine measurement Serum Creatinine [facility] Start: 01-03-2025 End: 01-03-2025 Patient encounter procedure 01/03/2025 10:00 AM EDT Office Visit [facility] [address] [place] [address] Moises Malcolm, 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 [address] [place] [address] wellness [facility] Comment on above: wellness Start: 12-07-2024 Annual PCP Team Chronic Disease Visit Annual PCP Team Chronic Disease Visit [facility] Start: 12-07-2024 Hepatitis B screening Urine Albumin:Creatinine Ratio [facility] Start: 12-07-2024 RSV Vaccine (1 - 1-dose 60+ series) RSV Vaccine (1 - 1-dose 60+ series) [facility] Comment on above: Postponed from 2014 (Declined at t his time) Start: 12-07-2024 RSV Vaccine (1 - Risk 60-74 years 1-dose series) RSV Vaccine (1 - Risk 60-74 years 1-dose series) [facility] Comment on above: Postponed from 2014 (Declined at t his time) Start: 11-23-2024 End: 11-23-2024 Patient encounter procedure Radiology Comment on above: L knee patient has fallen o n left knee again RKR done April 2024 pain, swelling, difficult to walk. States her original fall was seen by and he didn't do anything at appt. Start: 10-25-2024 Annual PCP Team Chronic Disease Visit Annual PCP Team Chronic Disease Visit [facility] Start: 09-13-2024 End: 09-13-2024 Patient encounter procedure 09/13/2024 8:20 AM EST Office Visit [facility] [address] [place] [address] Moises Malcolm, 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 [address] [place] [address] physical [facility] Comment on above: physical Start: 09-02-2024 End: 09-02-2024 Patient encounter procedure 09/02/2024 2:30 PM EST Office Visit Orthopa[facility]ics [address] [address] Makayla Bradley MD [address] [address] 3 month follow up - Lt tka yazmin 02/02/24 Orthopaedics Comment on above: 3 month follow up - Lt tka yazmin 02/02/24 Start: 08-30-2024 End: 11-29-2024 25-hydroxyvitamin D3 [Mass/volume] in Serum or Plasma VITAMIN D 25 HYDROXY Lab Routine Vitamin D deficiency Expected: 08/30/2024, Expires: 11/29/2024 [facility] Comment on above: Expected: 08/30/2024, Expires: Start: 08-30-2024 End: 11-29-2024 CBC panel - Blood by Automated count COMPLETE BLOOD COUNT Lab Routine Hypertension, unspecified type Expected: 08/30/2024, Expires: 11/29/2024 [facility] Comment on above: Expected: 08/30/2024, Expires: Start: 08-30-2024 End: 11-29-2024 Comprehensive metabolic 2000 panel - Serum or Plasma COMPREHENSIVE METABOLIC PANEL Lab Routine Hypertension, unspecified type Expected: 08/30/2024, Expires: 11/29/2024 [facility] Comment on above: Expected: 08/30/2024, Expires: Start: 08-30-2024 End: 11-29-2024 Lipid 1996 panel - Serum or Plasma LIPID PANEL BASIC Lab Routine Hyperlipidemia with target low density lipoprotein (LDL) cholesterol less than 100 mg/dL Expected: 08/30/2024, Expires: 11/29/2024 [facility] Comment on above: Expected: 08/30/2024, Expires: Start: 08-30-2024 End: 11-29-2024 Thyrotropin [Units/volume] in Serum or Plasma THYROID STIMULATING HORMONE Lab Routine Screening for thyroid disorder Expected: 08/30/2024, Expires: 11/29/2024 [facility] Comment on above: Expected: 08/30/2024, Expires: Start: 08-30-2024 End: 08-30-2024 Patient encounter procedure 08/30/2024 1:40 PM EST Office Visit [facility] [address], [place] [phone] Moises Malcolm, 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 [address] [place], [place] [phone] [facility] Comment on above: vetigo Start: 08-05-2024 End: 08-05-2024 Patient encounter procedure 08/05/2024 3:00 PM EST Office Visit Orthopaedics [address] [address] Makayla Bradley MD [address] [address] 3 month follow up - Lt tka yazmin 02/02/24 Orthopaedics Comment on above: 3 month follow up - Lt tka yazmin 02/02/24 Start: 07-13-2024 Medicare Advantage Annual Wellness Visit Medicare Advantage Annual Wellness Visit [facility] Start: 06-22-2024 End: 06-22-2024 Patient encounter procedure 06/22/2024 7:20 AM EST Office Visit [facility] [address] [place] [address] Moises Malcolm 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 [address] [place] [address] medication refill follow up [facility] Comment on above: medication refill follow up Start: 05-25-2024 End: 05-25-2024 Patient encounter procedure 05/25/2024 2:00 PM EST Office Visit [facility] [address] [place] [address] Moises Malcolm, MUD MIXER HELPER.[facility] [address] [place] [address] for insomnia . [facility] Comment on above: for insomnia . Start: 05-09-2024 End: 05-09-2024 ambulatory 05/09/2024 6:00 PM EDT OT/PT/Speech Visit [facility] [address], [place] [phone] Sky Alfaro, PT [address] [place], [place] [id number] S/P total knee arthroplasty, left [Z96.652 (ICD-10-CM)] [facility] Comment on above: S/P total knee arthroplasty, left [Z96.6 52 (ICD-10-CM)] Start: 05-06-2024 End: 05-06-2024 Patient encounter procedure 05/06/2024 1:45 PM EDT Office Visit Orthopaedics [address] [address] Makayla Bradley MD [address] [address] 3rd post op Lt tka [facility] 02/02/24 Orthopaedics Comment on above: 3rd post op Lt tka [facility] 02/02/24 Start: 05-04-2024 End: 05-04-2024 ambulatory 05/04/2024 6:00 PM EDT OT/PT/Speech Visit [facility] [address] [place] [address] Kashuba, Trudy, AIR SEALING TECHNICIAN [address] [place] [address] S/P total knee arthroplasty, left [Z96.652 (ICD-10-CM)] [facility] Comment on above: S/P total knee arthroplasty, left [Z96.6 52 (ICD-10-CM)] Start: 05-03-2024 Glaucoma screening Dilated Retinal Exam [facility] Comment on above: Postponed from 01/07/1964 (Declined at t his time) Start: 05-03-2024 Hepatitis C antibody, confirmatory test Dilated Retinal Exam [facility] Comment on above: Postponed from 01/07/1964 (Declined at t his time) Start: 05-02-2024 End: 05-02-2024 ambulatory 05/02/2024 6:00 PM EDT OT/PT/Speech Visit [facility] [address] [place] [address] Sky Alfaro, PT [address] [place] [address] S/P total knee arthroplasty, left [Z96.652 (ICD-10-CM)] [facility] Comment on above: S/P total knee arthroplasty, left [Z96.6 52 (ICD-10-CM)] Start: 04-27-2024 End: 04-27-2024 ambulatory 04/27/2024 6:00 PM EDT OT/PT/Speech Visit [facility] [address] [facility] [place] [place] [address] Trudy Ramirez, AIR SEALING TECHNICIAN [address] [place] [address] S/P total knee arthroplasty, left [Z96.652 (ICD-10-CM)] [facility] Comment on above: S/P total knee arthroplasty, left [Z96.6 52 (ICD-10-CM)] Start: 04-26-2024 Hemoglobin A1c measurement HbA1C [facility] Start: 04-25-2024 End: 04-25-2024 ambulatory 04/25/2024 6:00 PM EDT OT/PT/Speech Visit [facility] [address] [facility] [place] [address] Sky Alfaro, PT [address] [facility] [place] [address] S/P total knee arthroplasty, left [Z96.652 (ICD-10-CM)] [facility] Comment on above: S/P total knee arthroplasty, left [Z96.6 52 (ICD-10-CM)] Start: 04-25-2024 End: 04-25-2024 Patient encounter procedure 04/25/2024 2:00 PM EDT Office Visit Orth[facility]edics [address] [address] Makayla Bradley MD [address] [address] 3rd post op Lt tka [facility] 02/02/24 Orthopaedics Comment on above: 3rd post op Lt tka [facility] 02/02/24 Start: 04-20-2024 End: 04-20-2024 ambulatory 04/20/2024 6:00 PM EDT OT/PT/Speech Visit [facility] [address] [place] [address] Trudy Ramirez, AIR SEALING TECHNICIAN [address] [facility] [place] [address] S/P total knee arthroplasty, left [Z96.652 (ICD-10-CM)] [facility] Comment on above: S/P total knee arthroplasty, left [Z96.6 52 (ICD-10-CM)] Start: 04-19-2024 End: 07-19-2024 25-hydroxyvitamin D3 [Mass/volume] in Serum or Plasma VITAMIN D 25 HYDROXY Lab Routine Vitamin D deficiency Expected: 04/19/2024, Expires: 07/19/2024 [facility] Comment on above: Expected: 04/19/2024, Expires: Start: 04-19-2024 End: 07-19-2024 Lipid 1996 panel - Serum or Plasma LIPID PANEL BASIC Lab Routine Hyperlipidemia with target low density lipoprotein (LDL) cholesterol less than 100 mg/dL Expected: 04/19/2024, Expires: 07/19/2024 [facility] Work Phone: Comment on above: Expected: 04/19/2024, Expires: Start: 04-19-2024 End: 07-19-2024 Thyrotropin [Units/volume] in Serum or Plasma THYROID STIMULATING HORMONE Lab Routine Screening for thyroid disorder Expected: 04/19/2024, Expires: 07/19/2024 [facility] Comment on above: Expected: 04/19/2024, Expires: Start: 04-18-2024 End: 04-18-2024 ambulatory 04/18/2024 6:00 PM EDT OT/PT/Speech Visit [facility] [address] [place] [address] Sky Alfaro, PT [address] [place] [address] S/P total knee arthroplasty, left [Z96.652 (ICD-10-CM)] [facility] Comment on above: S/P total knee arthroplasty, left [Z96.6 52 (ICD-10-CM)] Start: 04-18-2024 End: 04-18-2024 Patient encounter procedure 04/18/2024 7:50 AM EDT Appointment Mammogram [address], [place] [address] Encounter for screening mammogram for malignant neoplasm of breast [Z12.31] Mammogram Comment on above: Encounter for screening mammogram for ma lignant neoplasm of breast [Z12.31] Start: 04-16-2024 3 comp foot exam completed Diabetic Foot Exam [facility] Comment on above: Postponed from 01/07/1965 (Current Illne ss) Start: 04-16-2024 Annual PCP Team Chronic Disease Visit Annual PCP Team Chronic Disease Visit [facility] Start: 04-16-2024 BP Controlled (<130/80) BP Controlled (<130/80) [facility] in Start: 04-16-2024 Diabetic foot examination Diabetic Foot Exam [facility] Comment on above: Postponed from 01/07/1964 (Current [employer] ss) Start: 04-16-2024 Hemoglobin A1c measurement Diabetes: Hemoglobin A1C [facility] Start: 04-16-2024 Hepatitis B surface antibody level LDL Cholesterol [facility] Start: 04-16-2024 Hepatitis B Vaccine (1 of 3 - Risk 3-dose series) Hepatitis B Vaccine (1 of 3 - Risk 3-dose series) [facility] Comment on above: Postponed from 2014 (Declined at t his time) Start: 04-16-2024 Shingrix Vaccine (1 of 2) Shingrix Vaccine (1 of 2) [facility] Comment on above: Postponed from 01/07/2004 (Declined at t his time) Start: 04-16-2024 Urine microalbumin profile DTaP,Tdap,Td Vaccine (2 - Td or Tdap) [facility] Comment on above: Postponed from 08/16/2022 (Declined at t his time) Start: 04-13-2024 End: 04-13-2024 ambulatory 04/13/2024 6:00 PM EDT OT/PT/Speech Visit [facility] [address] [place] [address] Trudy Ramirez, AIR SEALING TECHNICIAN [address] [place] [address] S/P total knee arthroplasty, left [Z96.652 (ICD-10-CM)] [facility] Comment on above: S/P total knee arthroplasty, left [Z96.6 52 (ICD-10-CM)] Start: 04-11-2024 End: 04-11-2024 ambulatory 04/11/2024 6:00 PM EDT OT/PT/Speech Visit [facility] [address] [place] [address] Sky Alfaro, PT [address] [place] [address] S/P total knee arthroplasty, left [Z96.652 (ICD-10-CM)] [facility] Comment on above: S/P total knee arthroplasty, left [Z96.6 52 (ICD-10-CM)] Start: 04-06-2024 End: 04-06-2024 ambulatory 04/06/2024 6:00 PM EDT OT/PT/Speech Visit [facility] [address] [facility] [place] [address] Trudy Ramirez, AIR SEALING TECHNICIAN [address] [place] [address] S/P total knee arthroplasty, left [Z96.652 (ICD-10-CM)] [facility] Comment on above: S/P total knee arthroplasty, left [Z96.6 52 (ICD-10-CM)] Start: 04-04-2024 End: 04-04-2024 ambulatory 04/04/2024 6:00 PM EDT OT/PT/Speech Visit [facility] [address] [facility] [place] [address] Sky Alfaro, PT [address] [place] [address] S/P total knee arthroplasty, left [Z96.652 (ICD-10-CM)] [facility] Comment on above: S/P total knee arthroplasty, left [Z96.6 52 (ICD-10-CM)] Start: 03-30-2024 End: 03-30-2024 ambulatory 03/30/2024 6:00 PM EDT OT/PT/Speech Visit [facility] [address] [place] [address] Trudy Ramirez, AIR SEALING TECHNICIAN [address] [place] [address] S/P total knee arthroplasty, left [Z96.652 (ICD-10-CM)] [facility] Comment on above: S/P total knee arthroplasty, left [Z96.6 52 (ICD-10-CM)] Start: 03-28-2024 End: 03-28-2024 ambulatory 03/28/2024 6:00 PM EDT OT/PT/Speech Visit [facility] [address] [place] [address] Trudy Ramirez, AIR SEALING TECHNICIAN [address] [place] [address] S/P total knee arthroplasty, left [Z96.652 (ICD-10-CM)] [facility] Comment on above: S/P total knee arthroplasty, left [Z96.6 52 (ICD-10-CM)] Start: 03-25-2024 End: 03-25-2024 ambulatory 03/25/2024 3:30 PM EDT OT/PT/Speech Visit [facility] [address] [place] [address] Trudy Ramirez, AIR SEALING TECHNICIAN [address] [place] [address] S/P total knee arthroplasty, left [Z96.652 (ICD-10-CM)] [facility] Comment on above: S/P total knee arthroplasty, left [Z96.6 52 (ICD-10-CM)] Start: 03-22-2024 End: 03-22-2024 ambulatory 03/22/2024 3:30 PM EDT OT/PT/Speech Visit [facility] [address] [place] [address] Trudy Ramirez, AIR SEALING TECHNICIAN [address] [place] [address] S/P total knee arthroplasty, left [Z96.652 (ICD-10-CM)] [facility] Comment on above: S/P total knee arthroplasty, left [Z96.6 52 (ICD-10-CM)] Start: 03-18-2024 End: 03-18-2024 Patient encounter procedure 03/18/2024 2:45 PM EDT Office Visit Orthopaedics [address] [address] Makayla Bradley MD [address] [address] 2nd post op Lt tka [facility] 02/02/24 Orthopaedics Comment on above: 2nd post op Lt tka [facility] 02/02/24 Start: 03-17-2024 End: 03-17-2024 ambulatory 03/17/2024 5:15 PM EDT OT/PT/Speech Visit [facility] [address] [facility] [place] [place] [id number] Sky Alfaro, PT [address] [place], [place] [phone] S/P total knee arthroplasty, left [Z96.652 (ICD-10-CM)] [facility] Comment on above: S/P total knee arthroplasty, left [Z96.6 52 (ICD-10-CM)] Start: 03-13-2024 Influenza vaccination Influenza Vaccine (#1) [facility] Start: 03-09-2024 End: 03-09-2024 ambulatory 03/09/2024 10:45 AM EDT OT/PT/Speech Visit [facility] [address] [facility] [place] [place] [phone] Sky Alfaro, PT [address] [place] [address] S/P total knee arthroplasty, left [Z96.652 (ICD-10-CM)] [facility] Comment on above: S/P total knee arthroplasty, left [Z96.6 52 (ICD-10-CM)] Start: 02-15-2024 End: 02-15-2024 Patient encounter procedure Orthopaedics Comment on above: 1st post op Lt tka yazmin 02/02/24 L knee Start: 02-02-2024 End: 02-02-2024 Admission to same day surgery center [facility] Comment on above: ROBOTIC ASSISTED TOTAL KNEE ARTHROPLASTY Start: 02-02-2024 End: 02-02-2024 Arthrp kne condyle&platu medial&lat compartments ME OR Start: 02-02-2024 Subsequent hospital visit by physician [facility] Comment on above: Primary osteoarthritis of left knee [M17 .12] Start: 02-02-2024 End: 02-02-2024 Admission to same day surgery center 02/02/2024 7:30 AM EDT - 02/02/2024 10:16 AM EDT Surgery [facility] [address] [place] [address] Makayla Bradley MD [address] [address] ROBOTIC ASSISTED TOTAL KNEE ARTHROPLASTY [place] Comment on above: ROBOTIC ASSISTED TOTAL KNEE ARTHROPLASTY Start: 02-02-2024 End: 02-02-2024 Arthrp kne condyle&platu medial&lat compartments ROBOTIC ASSISTED TOTAL KNEE ARTHROPLASTY Primary osteoarthritis of left knee 02/02/2024 7:30 AM EDT ME OR Start: 02-02-2024 Subsequent hospital visit by physician 02/02/2024 7:30 AM EDT Hospital Encounter [facility] [address] [place] [address] Makayla Bradley MD [address] [address] Primary osteoarthritis of left knee [M17.12] [facility] Comment on above: Primary osteoarthritis of left knee [M17 .12] Start: 01-08-2024 End: 01-08-2024 Patient encounter procedure 01/08/2024 2:00 PM EDT Office Visit Orthopaedics [address] [address] Makayla Bradley MD [address] [address] 1 month follow up Orthopaedics Comment on above: 1 month follow up Start: 12-08-2023 End: 12-08-2023 Patient encounter procedure 12/08/2023 9:40 AM EDT Office Visit [facility] [address] [place] [address] Moises Malcolm, MUD MIXER HELPER.[facility] [address] [place] [address] 6 WK F/U [facility] Comment on above: 6 WK F/U Start: 11-30-2023 End: 11-30-2023 Patient encounter procedure Radiology Comment on above: knee pain left knee follow up Start: 10-16-2023 Hemoglobin A1c measurement HbA1C [facility] Start: 10-16-2023 Hemoglobin A1c/Hemoglobin.total in Blood HbA1C [facility] Start: 10-12-2023 End: 10-12-2023 Patient encounter procedure 10/12/2023 8:45 AM EDT Office Visit [facility] [place] [facility] [address] [place] [address] [place] [id number] [facility] [place] [facility] Start: 09-19-2023 [facility] Start: 06-26-2023 Hepatitis B screening Urine Albumin:Creatinine Ratio [facility] Comment on above: Postponed from 08/18/2013 (Declined at t his time) Start: 04-16-2023 End: 06-16-2023 Urinalysis complete panel - Urine URINALYSIS WITH MICROSCOPIC, REFLEX CULTURE Lab Routine Incontinence of feces, unspecified fecal incontinence type Frequent UTI Expected: 04/16/2023, Expires: 06/16/2023 [facility] Work Phone: Comment on above: Expected: 04/16/2023, Expires: Start: 03-13-2023 COVID-19 Vaccine () COVID-19 Vaccine () [facility] Start: 02-12-2023 [facility] Start: 11-24-2022 End: 11-24-2022 Patient encounter procedure 11/24/2022 Office Visit Cardiology Orasanu, Laura, MD [address] [place] [address] [facility] [place] [facility] Start: 11-07-2022 End: 11-07-2022 Patient encounter procedure 11/07/2022 Office Visit Weight Management Penny Hammer MD [address] [place] [address] [facility] [place] Start: 10-24-2022 End: 10-24-2022 Clinical Support 10/24/2022 Clinical Support Weight Management Tiffani Prado RD [address] [place], [place] [id number] [facility] [place] Start: 09-25-2022 End: 09-25-2022 Admission to same day surgery center 09/25/2022 Surgery Gastroenterology Nancy Aldridge [address] [place] [address] EGD WITH BIOPSY [63181 (CPT )] [facility] Comment on above: EGD WITH BIOPSY [75886 (CPT )] Start: 09-25-2022 End: 09-25-2022 Egd transoral biopsy single/multiple EGD WITH BIOPSY Gastro-esophageal reflux disease without esophagitis 09/25/2022 12:00 PM EDT [facility] Start: 09-25-2022 Subsequent hospital visit by physician 09/25/2022 Hospital Encounter Gastroenterology Nancy Aldridge [address] [place] [address] [facility] [address] [facility] Start: 09-18-2022 Screening for malignant neoplasm of breast Mammogram [facility] Start: 09-08-2022 End: 09-08-2022 Patient encounter procedure 09/08/2022 Office Visit Pulmonology Ana Mehta MD [address] [place] [address] [facility] Start: 09-05-2022 End: 09-05-2022 Patient encounter procedure [facility] [place] Start: 08-25-2022 End: 08-21-2023 25-hydroxyvitamin D3 [Mass/volume] in Serum or Plasma Vitamin D 25 hydroxy Lab Routine Primary hypertension Morbid obesity, unspecified obesity type (HCC) Expected: 08/25/2022, Expires: 08/21/2023 Tue[facility] Comment on above: Expected: 08/25/2022, Expires: Start: 08-25-2022 End: 08-21-2023 CBC panel - Blood by Automated count CBC Lab Routine Primary hypertension Morbid obesity, unspecified obesity type (HCC) Expected: 08/25/2022, Expires: 08/21/2023 Tuee Comment on above: Expected: 08/25/2022, Expires: Start: 08-25-2022 End: 08-21-2023 Cobalamin (Vitamin B12) [Mass/volume] in Serum or Plasma Vitamin B12 Lab Routine Primary hypertension Morbid obesity, unspecified obesity type (HCC) Expected: 08/25/2022, Expires: 08/21/2023 Tuee Comment on above: Expected: 08/25/2022, Expires: Start: 08-25-2022 End: 08-21-2023 Comprehensive metabolic 1998 panel - Serum or Plasma Comprehensive metabolic panel Lab Routine Primary hypertension Morbid obesity, unspecified obesity type (HCC) Expected: 08/25/2022, Expires: 08/21/2023 Tuee Comment on above: Expected: 08/25/2022, Expires: Start: 08-25-2022 End: 08-21-2023 Ferritin [Mass/volume] in Serum or Plasma Ferritin Lab Routine Primary hypertension Morbid obesity, unspecified obesity type (HCC) Expected: 08/25/2022, Expires: 08/21/2023 Tuee Comment on above: Expected: 08/25/2022, Expires: Start: 08-25-2022 End: 08-21-2023 Folate [Mass/volume] in Serum or Plasma Folate Lab Routine Primary hypertension Morbid obesity, unspecified obesity type (HCC) Expected: 08/25/2022, Expires: 08/21/2023 [facility] Comment on above: Expected: 08/25/2022, Expires: Start: 08-25-2022 End: 08-21-2023 Hemoglobin A1c/Hemoglobin.total in Blood Hemoglobin A1c Lab Routine Primary hypertension Morbid obesity, unspecified obesity type (HCC) Expected: 08/25/2022, Expires: 08/21/2023 [facility] Work Phone: Comment on above: Expected: 08/25/2022, Expires: Start: 08-25-2022 End: 08-21-2023 Iron and Iron binding capacity panel - Serum or Plasma Iron Lab Routine Primary hypertension Morbid obesity, unspecified obesity type (HCC) Expected: 08/25/2022, Expires: 08/21/2023 [facility] Comment on above: Expected: 08/25/2022, Expires: Start: 08-25-2022 End: 08-21-2023 Lipid 1996 panel - Serum or Plasma Lipid panel Lab Routine Primary hypertension Morbid obesity, unspecified obesity type (HCC) Expected: 08/25/2022, Expires: 08/21/2023 [facility] Comment on above: Expected: 08/25/2022, Expires: Start: 08-25-2022 End: 08-21-2023 Magnesium [Mass/volume] in Serum or Plasma Magnesium Lab Routine Primary hypertension Morbid obesity, unspecified obesity type (HCC) Expected: 08/25/2022, Expires: 08/21/2023 Tuee Comment on above: Expected: 08/25/2022, Expires: Start: 08-25-2022 End: 08-21-2023 Thyrotropin [Units/volume] in Serum or Plasma TSH Lab Routine Primary hypertension Morbid obesity, unspecified obesity type (HCC) Expected: 08/25/2022, Expires: 08/21/2023 [facility] Comment on above: Expected: 08/25/2022, Expires: Start: 08-25-2022 End: 08-21-2023 Vitamin B1, whole blood Vitamin B1, whole blood Lab Routine Primary hypertension Morbid obesity, unspecified obesity type (HCC) Expected: 08/25/2022, Expires: 08/21/2023 [facility] Comment on above: Expected: 08/25/2022, Expires: 4 Start: 08-25-2022 End: 08-21-2023 XR Abdomen and RF Gastrointestinal tract upper W contrast PO FL upper GI w KUB Imaging Routine Primary hypertension Morbid obesity, unspecified obesity type (HCC) Expected: 08/25/2022, Expires: 08/21/2023 [facility] Comment on above: Expected: 08/25/2022, Expires: 4 Start: 08-25-2022 End: 08-21-2023 Zinc Zinc Lab Routine Primary hypertension Morbid obesity, unspecified obesity type (HCC) Expected: 08/25/2022, Expires: 08/21/2023 [facility] Comment on above: Expected: 08/25/2022, Expires: Start: 08-20-2022 End: 08-20-2022 Clinical Support 08/20/2022 Clinical Support Weight Management Nancy Aldridge, DO [address] [facility] [address] [place] [address] Sara Catherine, RD [address] [facility] [place] [address] [facility] [place] Start: 08-16-2022 DTaP/Tdap/Td Vaccines (2 - Td or Tdap) DTaP/Tdap/Td Vaccines (2 - Td or Tdap) [facility] Start: 08-16-2022 Urine microalbumin profile DTAP,TDAP,TD (2 - Td or Tdap) [facility] Start: 08-15-2022 [facility] Start: 06-28-2022 [facility] Start: 03-13-2022 Influenza vaccination [facility] Start: 07-13-2021 ADVANCE DIRECTIVE DISCUSSION ADVANCE DIRECTIVE DISCUSSION [facility] Start: 05-28-2020 Mammography [facility] Start: 05-28-2020 Screening for malignant neoplasm of breast Mammogram Screening [facility] Start: 09-24-2019 End: 09-24-2019 Appointment Appointment [facility] Work Phone: Start: 07-26-2019 Pneumococcal Vaccine: 65+ Years (2 - PPSV23 if available, else PCV20) Pneumococcal Vaccine: 65+ Years (2 - PPSV23 if available, else PCV20) [facility] Start: 04-21-2019 Hemoglobin A1c/Hemoglobin.total in Blood HBA1C [facility] Start: 2019 BONE DENSITY BONE DENSITY [facility] Start: 2019 Bone Density Screening Bone Density Screening [facility] Start: 2019 Screening for osteoporosis Bone Density Screening [facility] Start: 09-20-2018 Pneumococcal Vaccine: 65+ Years (2 of 2 - PPSV23 or PCV20) Pneumococcal Vaccine: 65+ Years (2 of 2 - PPSV23 or PCV20) [facility] Start: 06-06-2014 Hepatitis B surface antibody level LDL CHOLESTEROL [facility] Start: 2014 RSV Immunization aged 60 or older (1 - 1-dose 60+ series) RSV Immunization aged 60 or older (1 - 1-dose 60+ series) [facility] Start: 2014 RSV Vaccine (1 - 1-dose 60+ series) RSV Vaccine (1 - 1-dose 60+ series) [facility] Start: 2014 RSV Vaccine (1 - Risk 60-74 years 1-dose series) RSV Vaccine (1 - Risk 60-74 years 1-dose series) [facility] Start: 08-18-2013 COLORECTAL CANCER SCREENING COLORECTAL CANCER SCREENING [facility] Start: 08-18-2013 FECAL OCCULT BLOOD FECAL OCCULT BLOOD [facility] Start: 08-18-2013 Hepatitis B screening URINE ALBUMIN:CREATININE RATIO [facility] Start: 08-18-2013 Screening for malignant neoplasm of colon [facility] Start: 01-07-2004 SHINGRIX VACCINE (1 of 2) SHINGRIX VACCINE (1 of 2) [facility] Start: 01-07-2004 Zoster Vaccines (1 of 2) Zoster Vaccines (1 of 2) [facility] Start: 1999 COLOGUARD (FIT-DNA) COLOGUARD (FIT-DNA) [facility] Start: 1999 Colonoscopy COLONOSCOPY [facility] Start: [address] COLONOGRAPHY [facility] Start: 1999 Screening for malignant neoplasm of colon [facility] Start: 1999 SIGMOIDOSCOPY SIGMOIDOSCOPY [facility] Start: 1994 Screening for malignant neoplasm of breast Mammogram [facility] Start: 1973 Urine screening for protein Diabetes: Urine Protein Screening [facility] Start: 01-07-1972 ANNUAL PCP TEAM CHRONIC DISEASE VISIT ANNUAL PCP TEAM CHRONIC DISEASE VISIT [facility] Start: 01-07-1972 BP CONTROLLED (<130/80) BP CONTROLLED (<130/80) [facility] Start: 01-07-1972 Depression Screening Depression Screening [facility] Start: 01-07-1972 HEPATITIS C SCREENING HEPATITIS C SCREENING [facility] Start: 01-07-1972 Hepatitis C screening Hepatitis C Screening [facility] Start: 01-07-1972 SPIROMETRY SPIROMETRY [facility] Start: 1966 Adult depression screening assessment DEPRESSION SCREENING [facility] Start: 01-07-1964 3 comp foot exam completed DIABETIC FOOT EXAM [facility] Start: 01-07-1964 Diabetic foot examination [facility] Start: 01-07-1964 Glaucoma screening [facility] Start: 01-07-1964 Hepatitis C antibody, confirmatory test DILATED RETINAL EXAM [facility] Start: 01-07-1964 Preventive dental service Diabetes: Dental Exam [facility] Start: 01-07-1960 PNEUMOCOCCAL: 65+ (1 - PCV) PNEUMOCOCCAL: 65+ (1 - PCV) [facility] Start: 1959 COVID-19 VACCINE (#1) COVID-19 VACCINE (#1) [facility] Start: 1954 Hemoglobin A1c measurement Diabetes: Hemoglobin A1C [facility] Start: 1954 Hepatitis B Vaccines (1 of 3 - 3-dose series) Hepatitis B Vaccines (1 of 3 - 3-dose series) [facility] Start: 1954 Lipid panel Lipid Panel [facility] Start: 1954 Screening for malignant neoplasm of colon [facility] Start: 1954 Screening for osteoporosis Bone Density Scan [facility] Bacteria identified in Urine by Culture BACTERIAL CULTURE, URINE Microbiology Routine Urinary incontinence, unspecified type 08/30/2024 2:17 PM EST [facility] End: 2025 BD DXA TRABECULAR BONE SCORE (TBS) BD DXA TRABECULAR BONE SCORE (TBS) Radiology Routine Screening for osteoporosis Asymptomatic menopause 1 Occurrences starting 12/08/2023 until 2025 [facility] Comment on above: 1 Occurrences starting 12/08/2023 until 2025 COVID & INFLUENZA A/ B & RSV PCR, ROUTINE COVID & INFLUENZA A/B & RSV PCR, ROUTINE Microbiology Routine URI, acute Ordered: 09/07/2024 [facility] Work Phone: Comment on above: Ordered: 09/07/2024 End: 02-02-2026 DBT Breast - bilateral screening CAROLINA SCREENING W RENATO Radiology Routine Encounter for screening mammogram for malignant neoplasm of breast 1 Occurrences starting 01/03/2025 until 02/02/2026 [facility] Work Phone: Comment on above: 1 Occurrences starting 01/03/2025 until 02/02/2026 End: 2025 DXA Skeletal system.axial Views for bone density DXA-AXIAL SKELETON Radiology Routine Screening for osteoporosis Asymptomatic menopause 1 Occurrences starting 12/08/2023 until 2025 [facility] Work Phone: Comment on above: 1 Occurrences starting 12/08/2023 until 2025 End: 02-02-2026 DXA Skeletal system.axial Views for bone density DXA-AXIAL SKELETON Radiology Routine Asymptomatic menopause 1 Occurrences starting 01/03/2025 until 02/02/2026 [facility] Comment on above: 1 Occurrences starting 01/03/2025 until 02/02/2026 Hemoglobin A1c/Hemoglobin.total in Blood HEMOGLOBIN A1C (POC) Lab Routine Type 2 diabetes mellitus without complication, without long-term current use of insulin (HCC) Ordered: 10/26/2023 [facility] Work Phone: Comment on above: Ordered: 10/26/2023 Im adm prq id subq/i m njxs 1 vaccine IMADM PRQ ID SUBQ/IM NJXS 1 VACC Immunization/Injection Routine Encounter for immunization Ordered: 04/19/2024 [facility] Comment on above: Ordered: 04/19/2024 End: 05-15-2024 CAROLINA SCREENING CAROLINA SCREENING Radiology Routine Encounter for screening mammogram for malignant neoplasm of breast 1 Occurrences starting 04/16/2023 until 05/15/2024 [facility] Work Phone: Comment on above: 1 Occurrences starting 04/16/2023 until 05/15/2024 MG Breast Screening CAROILNA SCREENIN G Radiology Routine Encounter for screening mammogram for malignant neoplasm of breast 04/18/2024 8:41 AM EDT [facility] Work Phone: End: 12-23-2025 NM Bone 3 Phase Views NM BONE 3 PHASE Radiology Routine Pain due to total left knee replacement, subsequent encounter Patellar tendinitis of left knee Pain due to internal orthopedic prosthetic devices, implants and grafts, initial encounter 1 Occurrences starting 11/23/2024 until 12/23/2025 [facility] Work Phone: Comment on above: 1 Occurrences starting 11/23/2024 until 12/23/2025 NM Heart Views W str ess and W radionuclide IV [facility] Patient Education [facility] Work Phone: Patient referral [facility] Work Phone: End: 05-15-2024 SPIROMETRY - BASELINE AND POST DILATOR SPIROMETRY - BASELINE AND POST DILATOR PFT Routine Asthma, unspecified asthma severity, unspecified whether complicated, unspecified whether persistent 1 Occurrences starting 04/16/2023 until 05/15/2024 [facility] Work Phone: Comment on above: 1 Occurrences starting 04/16/2023 until 05/15/2024 UA DIP, URINE (POC) UA DIP, URIN E (POC) Lab Routine Urinary incontinence, unspecified type Ordered: 08/30/2024 [facility] Work Phone: Comment on above: Ordered: 08/30/2024 [facility] XR FOOT GENERAL 3V AP/LAT/OBL RIGHT XR FOOT GENERAL 3V AP/LAT/OBL RIGHT Radiology Routine Heel spur, right 05/29/2023 11:43 AM EST [facility] Work Phone: End: 12-16-2025 XR Knee AP and Lateral and Merchants XR KNEE POST OP 3V AP/LAT/MERCHANT LEFT Radiology Routine Left knee pain, unspecified chronicity 1 Occurrences starting 11/16/2024 until 12/16/2025 [facility] Work Phone: Comment on above: 1 Occurrences starting 11/16/2024 until 12/16/2025 XR Knee AP and Later al and Merchants XR KNEE POST OP 3V AP/LAT/MERCHANT LEFT Radiology Routine Left knee pain, unspecified chronicity 11/23/2024 9:06 AM EDT [facility] Work Phone: [facility] Immunizations Immunization Date Immunization Notes Care Provider Uriah dutton 04-19-2024 influenza, high dose seasonal, preservative-free Moises Yun 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 Work Phone: [facility] 04-16-2023 influenza (HD-IIV4) vaccine, age 65+ yr, high dose, quadrivalent, PF (FLUZONE HIGH-DOSE) Moises Yun 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 Work Phone: [facility] 04-16-2023 pneumococcal (PCV20) vaccine, 20 valent (PREVNAR 20) Moises Yun 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 Work Phone: [facility] 04-16-2023 pneumococcal Conjuga te, unspecified formulation Moises Yun 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 Work Phone: [facility] Work Phone: 04-16-2023 influenza virus vaccine, unspecified formulation Makayla Bradley MD Work Phone: [facility] 03-14-2021 COVID-19 vaccine (ARIANNA) Melanie Magana PA-C Work Phone: [facility] 03-04-2021 influenza, injectabl e, quadrivalent, contains preservative Melanie Magana PA-C Work Phone: [facility] 03-04-2021 influenza virus vaccine, unspecified formulation Nancy Aldridge DO Work Phone: [facility] 05-14-2020 Seasonal, quadrivale nt, recombinant, injectable influenza vaccine, preservative free Melanie Magana PA-C Work Phone: [facility] 04-23-2020 influenza nasal, unspecified formulation Melanie Magana PA-C Work Phone: [facility] 04-04-2019 tetanus toxoid, redu tobin diphtheria toxoid, and acellular pertussis vaccine, adsorbed DR KORI HEATON DO [facility] 07-26-2018 influenza, injectabl e, quadrivalent, preservative free Melanie CROCKER-C Work Phone: [facility] 07-26-2018 pneumococcal conjuga te vaccine, 13 valent Melanie CROCKER-C Work Phone: [facility] 04-08-2018 influenza, injectabl e, quadrivalent, contains preservative Melanie Magana PA-C Work Phone: [facility] 05-07-2017 Influenza virus vaccine W [facility] 05-07-2017 influenza, seasonal, injectable, preservative free Melanie CROCKER-C Work Phone: [facility] 04-29-2017 influenza, injectabl e, quadrivalent, contains preservative Melanie Magana PA-C Work Phone: [facility] 08-16-2012 tetanus toxoid, redu tobin diphtheria toxoid, and acellular pertussis vaccine, adsorbed George Skelton Work Phone: [facility] Work Phone: Payers Date Payer Category Payer Self-pay [id number] 2022 [facility] [id number] 2022 Medicare [id number] 2022 Medicare (Managed Care) 1.2. [id number] 2022 Unknown [id number] 2022 Unknown [id number] 2022 Unknown [id number] 2021 Private Health Insurance [id number] 2018 Medicare HUMANA MEDICARE HUMANA GOLD PLUS [id number] 2018-Present [phone] [address] [address] [place] [address] O [id number] 2015 Medicare [id number] 1954 Unknown [id number] 1954 Unknown [id number] 1954 Unknown [id number] Medicaid [id number] Unknown [id number] Unknown AARP MCR ADV [id number] Unknown [id number] Unknown AARP MCR ADV [id number] Unknown [id number] Unknown [id number] Unknown [id number] Unknown [id number] Social History Date Type Detail Facility Start: 02-20-2012 End: 07-28-2022 Tobacco smoking status NHIS Ex-smoker [facility] Work Phone: Start: 02-20-2012 End: 01-27-2024 Tobacco use and exposure Smokeless tobacco non-user [facility] Work Phone: Start: 07-15-2019 End: 01-03-2025 Alcohol intake Current non-drinker of alcohol (finding) [facility] Start: 10-20-2018 End: 11-30-2023 Tobacco Comment Smoked as a teenager [facility] Start: 1955 Sex Assigned At Not on file C [facility] Start: 10-16-2020 End: 07-28-2022 Exposure to SARS-CoV-2 (event) Not sure [facility] Start: 06-27-2021 End: 09-19-2023 Tobacco smoking status NHIS Unknown if ever smoked [facility] Start: 10-09-2018 None [facility] Start: 10-09-2018 Spouse/ Signif icant Other [facility] Start: 05-28-2017 Non-smoker [facility] Start: 1955 Sex Assigned At Female [facility] [facility] [place] Start: 11-20-2018 End: 01-27-2024 Tobacco smoking status Never smoked tobacco (finding) [facility] History of tobacco use Current smoker [facility] History of tobacco use Cigarette Smoker [facility] Start: 07-28-2022 Alcohol intake Ex-drinker (finding) [facility] Start: 07-28-2022 Tobacco Comment Quit more than 20 years ago [facility] Start: 04-16-2023 End: 01-27-2024 History of Social function [facility] Start: 04-16-2023 End: 01-27-2024 Tobacco use panel [facility] PHQ2 Score 0 [facility] Start: 07-22-2022 Gender identity Identifies as female gender (finding) [facility] Has the Spon[employer], or [employer] threatened to shut off services in your home in past 12Mo No [facility] (I/We) worried whether (my/our) food would run out before (I/we) got money to buy more. Never true [facility] Has the [employer], or water [employer] threatened to shut off services in your home in past 12Mo Yes [facility] Are you now , , , , never or living with a partner? [facility] How often to you hav e a drink containing alcohol? Never [facility] How hard is it for you to pay for the very basics like food, housing, medical care, and heating Hard [facility] Do you feel stress - tense, restless, nervous, or anxious, or unable to sleep at night because your mind is troubled all the time - these days [OSQ] To some extent [facility] NEGATED: Highlighted rowStart: 09-24-2019 End: 09-24-2019 Alcohol use Alcohol use [facility] Moy Univer Work Phone: NEGATED: Highlighted rowStart: 09-24-2019 End: 09-24-2019 Details of drug misuse behavior Details of drug misuse behavior [facility] [employer] Work Phone: NEGATED: Highlighted rowStart: 09-24-2019 End: 09-24-2019 Assertion Never smoker [facility] Henriette Work Phone: Medical Equipment Procedure Code Equipment Code Equipment Origin al Text Equipment Identifier Dates Component 32mm Tritanium 10mm Patellar Asymmetric - [id number] Start: 10-27-2018 Insert Triathlon 4 X3 9mm Tibial Cruciate Retaining Knee - [id number] Start: 10-27-2018 Component Triath michael 4 Pa Femoral Cruciate Retain Bead Knee Right - [id number] Start: 10-27-2018 Baseplate Triath xander 4 Tritanium Tibial Coated Sterile Knee - [id number] Start: 10-27-2018 Component 32mm Tritanium 10mm Patellar Asymmetric - [id number] Start: 02-02-2024 Baseplate Triath xander 3 Tritanium 44mm 67mm Tibial Sterile Latex Free - [id number] Start: 02-02-2024 Insert Triathlon 3 11mm Tibial Bearing Condylar Stabilize Sterile Knee - [id number] Start: 02-02-2024 Component Triath michael 3 Pa Femoral Cruciate Retain Bead Knee Left - [id number] Start: 02-02-2024 Goals Date Patient Goal Desired Activity /State Personal health goal Functional Status Date Assessment Result Facility 01-03-2025 Total score [AUDIT-C] 0 01/04/20 25 10:03 AM EDT Altagracia Gutierrez MA [facility] 02-03-2024 Are you deaf, or do you have serious difficulty hearing No 02/03/2024 12:44 PM CYT Arleen Hernandez RN No [facility] 02-03-2024 Are you blind, or do you have serious difficulty seeing, even when wearing glasses No 02/03/2024 12:44 PM Arleen Kaiser RN No [facility] 02-03-2024 Do you have serious difficulty walking or climbing stairs Yes 02/03/2024 12:44 PM Arleen Kaiser, SANTOS Yes [facility] 02-03-2024 Do you have difficul ty dressing or bathing No 02/03/2024 12:44 PM EDT Arleen Hernandez RN No [facility] 02-03-2024 Because of a physica l, mental, or emotional condition, do you have difficulty doing errands alone such as visiting a physician's office or shopping Yes 02/03/2024 12:44 PM EDT Arleen Hernandez RN Yes [facility] 02-20-2022 Functional Status Ambulation in [facility] Mental Status Date Assessment Result Facility 02-03-2024 Because of a physica l, mental, or emotional condition, do you have serious difficulty concentrating, remembering, or making decisions No 02/03/2024 12:44 PM EDT Arleen Hernandez RN No [facility] 02-12-2023 Cognitive function Voice/Name [facility] Work Phone: 02-20-2022 Mental Status Orientation Oriented x 4 [facility] 02-13-2022 Mental Status Orientation Oriented x 4 [facility] Clinical Notes 05-21-2013 to 01-03-2025 Patient InstructionsMoises Malcolm APRN.[facility] - 01/03/2025 10:25 AM Moises Murphy APRN.[facility] - 12/28/2024 11:07 AM EDTTelephone Encounter - Paula Galeas MA - 11/24/2024 3:05 PM EDT Note Date & Type Note Facility 01-03-2025 Instructions Moises Malcolm APRN.[facility] - 01/03/2025 10:35 AM EDT BONE MINERAL DENSITY PATIENT INSTRUCTIONS ======= Bone mineral density testing measures the amount [...] you can resume your usual activities immediately. Screening schedule The following prevention plan is recommended: Dilated Retinal Exam Never done Diabetic Foot Exam Never done Bone Density Screening Never done Medicare Advantage Annual Wellness Visit Never done Mammogram Screening due on 04/18/2025 WHAT YOU CAN DO TO PREVENT FALLS Many falls can be prevented. By making some changes, you can lower your chances of falling. Four things YOU can do to prevent falls for you* and your caregiver 1. Begin a regular exercise program Exercise is one of the most important ways to lower your chances of falling. It makes you stronger and helps you feel better. Exercises that improve balance and coordination (like Ashleigh Chi) are the most helpful. Lack of exercise leads to weakness and increases your chances of falling. Ask your doctor or health care provider about the best type of exercise program for you. 2. Have your health care provider review your medicines Have your doctor or pharmacist review all the medicines you take, even ayxi-dvj-roqpcsb medicines. As you get older, the way medicines work in your body can change. Some medicines, or combinations of medicines, can make you sleepy or dizzy and can cause you to fall. 3. Have your vision checked Have your eyes checked by an eye doctor at least once a year. You may be wearing the wrong glasses or have a condition like glaucoma or cataracts that limits your vision. Poor vision can increase your chances of falling. 4. Make your home safer About half of all falls happen at home. To make your home safer: Remove things you can trip over (like papers, books, clothes, and shoes) from stairs and places where you walk. Remove small throw rugs or use double-sided tape to keep the rugs from slipping. Keep items you use often in cabinets you can reach easily without using a step stool. Have grab bars put in next to your toilet and in the tub or shower. Use non-slip mats in the bathtub and on shower floors. Improve the lighting in your home. As you get older, you need brighter lights to see well. Hang light-weight curtains or shades to reduce glare. Have handrails and lights put in on all staircases. Wear shoes both inside and outside the house. Avoid going barefoot or wearing slippers. For more information, contact: Centers for Disease Control and Prevention www.cdc.gov/injury * This information may not apply if you have certain medical conditions. GET HELP If you have symptoms of clinical depression, you can get help by doing one or more of the followin. Please talk with your doctor. 2. If you are already in treatment, make sure you contact and update your doctor or therapist. 3. Review additional options for care based on patient or provider preference: Central/Multiple Locations: [facility]: [address] [facility] - [phone] Faraz Jaramillo: [address] [facility] - [phone] [facility]: [address] [facility] - [phone] [facility]: [address] [facility] - [phone] [place] [facility] and Children: [facility] - [phone] (Medicaid only) [facility] Medicine: Multiple Locations - [phone] [facility] Department of Psychiatry & Psychology at [phone] (select Option 1) or [phone] (select Option 1) Connections: Multiple Locations - [phone] (Medicaid only) Toribio Dawson [facility] - Multiple Locations - [phone] (Medicaid only) [facility] Multiple Locations - [phone] Psychological and Behavioral Consultants: Multiple Locations - [phone] [facility]: Multiple Locations - [phone] [facility] Locations: [facility]: [address] [facility] - [phone] [facility]: [address] [place] - [phone] Patricia Brewer PhD and Associates: [address] [place] - [phone] [facility] - [address] [facility] [address] [place] - [phone] Yonas Centeno MD: [address] [place] [facility] - [phone] [facility] [address], [place] - [phone] [facility]: [address] [facility], [place] - [phone] [facility], [address] [facility] - [phone] [place] Locations: Anastasia Sorto MD [facility] Inc: [address], [place] - [phone] Patricia Brewer PhD and Associates: [address] [facility] - [phone] [facility] Services: [address] [facility] - [phone] [facility] Inc.: [address] [facility] - [phone] [facility], [address] - [phone] [facility] [place], [address] [facility] - [phone] [facility]: [address] [place] [facility] [phone] [place] Locations: [facility] [address] - [phone] [facility] Services L Tomas Fuentes, [facility] - [phone] [facility] Psych[facility]: [address] Adrienne Garcia - [phone] [facility]: [address] [facility] - [phone] [facility] - [address] - [phone] [place] Locations: [facility]no Alvarenga MD Psychiatry, Sleep Medicine - [address] [place] - [phone] or [phone] Simón Verma MD - [address] [facility] [phone] [facility] Consultants - KIRBY Sinclair, [facility] - [address] [phone] [facility] - [address] [phone] [facility] (NO Commercial Insurance accepted) - [address] [phone] [facility] - Homero Masters, [facility], [facility] - [address] [phone] Jenelle Aleman, [facility] - [address] [phone] Nieves Heaton, [facility] - [address] [phone] Nhan Shirley, [facility] - [address] [phone] Johnie Greene, [facility] - [address] [phone] Claudia Dhaliwal, [facility], [facility] (No Medicare, [place], [employer]) - [address] [place] [phone] Iglesia Pinto, [facility] - [address], [place] - [phone] Henry Rosas, [facility] - [address] [phone] For additional resources and information please call or review the website: [email or web address] If you are feeling suicidal, please call [address] , or the National Suicide Hotline , Call 781, or go to your nearest emergency room Preventing Falls and Maintaining Balance Preventing falls is important at any age, but it is especially important in older adults. Each year, one out of three people age 65 years and older will fall. Falls can cause a wide range of problems including pain, loss of independence, and mental decline. They can also cause a decrease in physical and social activity level and inability to move (mobility). Some risk factors for falls, such as increasing age, cannot be changed. In addition, certain diseases can affect balance and walking ability and therefore increase the risk of falls. Among these diseases are Parkinson s disease, stroke, dementia, diabetes, osteoporosis, arthritis, bone cancer, and multiple sclerosis. However, the good news is that most falls can be prevented and many medical risk factors for falling can be controlled. What can older adults do to prevent falls? Older adults can reduce their risk of falling by taking an active role in their own health. A few suggestions include: Exercise. Regular exercise improves balance, coordination, and bone and muscle strength. Ask your doctor what exercises are best for you. Get your eyes and hearing checked. Limit your alcohol intake and stop smoking. Alcohol can cause unsteadiness and slow reaction times. Smoking decreases bone strength. Get enough sleep (7 to 9 hours/night). You are more likely to fall if you are sleepy. Eat a well-balanced diet and drink plenty of fluids (eight, 8-oz glasses of fluids/day). To learn more about healthy eating, visit the website: http://www.choosemyplate.gov/ Make sure your doctor knows all prescription and oayr-hom-pfjllsy drugs you take. Medicines such as sedatives, muscle relaxants, cold medicines, and blood pressure drugs can cause dizziness, lightheadedness, or loss of balance. When two or more prescription or ftwa-gzz-rphwmqk medicines are used in combination, side effects might be worsened and can lead to falls. What can older adults do to maintain balance to help prevent falls? Learning how to keep your balance as you move about can help avoid falls. Here are a few tips: Keep at least one hand free at all times; try using a backpack or myesha pack to hold things rather than carrying them in your hands. Never carry objects in both hands when walking. Swing both arms from front to back while walking. This may require a conscious effort; however, it will help maintain balance, posture, and reduce fatigue. Concentrate on lifting your feet off of the ground when walking. Shuffling and dragging your feet is a common culprit in losing your balance. When trying to navigate turns, use a U technique of facing forward and making a wide turn, rather than pivoting sharply. Stand with feet shoulder length apart. When feet are close together for any length of time, you increase your risk of losing your balance and falling. Do one thing at a time! Don t try to walk and perform another task, such as reading, using your cell phone, or looking around. The less distractions, the better! Do not wear rubber- or gripping-soled shoes as they may catch on the floor and cause tripping. Move slowly when changing positions. Focus your attention on each movement. If needed, use a grab bar or walking aid. Count 15 seconds between each movement; for example, when rising from a seated position, wait 15 seconds after standing to begin walking. Take ashleihg chi and/or yoga classes. These slow, gentle-motion exercises have been shown to improve balance, strength, flexibility, coordination, and stability. If balance is an ongoing problem, consider using a walking aid such as a cane, walking stick, or walker. References [place] [employer]. Guidelines for Preventing Falls. http://orthoinfo.aaos.org/topic.cf m?ibukg=t45175 Accessed 09/04/2015. National [place] on Aging (NCOA). Falls Prevention. https://www.ncoa.org/healthy-aging /falls-prevention/ Accessed 09/04/2015. Centers for Disease Control & Prevention. Important Facts about Falls. http://www.cdc.gov/HomeandRecreati onalSafety/Falls/adultfalls.html Accessed 09/04/2014. National [place] on Aging. AgePage: Falls and Fractures https://www.coni.nih.gov/health/pub lication/tptam-ntk-kilrvnufh Accessed 09/04/2014. United [place] Department of Agriculture. Choose MyPlate.gov. http://www.choosemyplate.gov/ Accessed 09/04/2014. Copyright 2656-2675 [facility]. All rights reserved. This document was last reviewed on: 2015 Index # 89158 documented in this encounter [facility] 01-03-2025 Note HNO ID: [id number] Author: MOISES MALCOLM APRN.ELIZA Service: ? Author Type: Nurse Practitioner Type: Progress Notes Filed: 01/04/2025 07:10 Note Text: Recording using ambient AI software for draft documentation of the visit was discussed with the patient/authorized sales solutions representative; all questions welcomed and answered. Patient/authorized sales solutions representative agreed to proceed SUBJECTIVE: Caden Llamas is a 69 year old female who presents for WAE. H DM, HTN, anxiety, asthma, brain aneurysm, insomnia, GERD, RUTH, and Hyperlipidemia. Here with her Lusi. Medicare Wellness Exam: - No falls recently; had a fall 7 months ago on front steps, resulting in skin abrasions on arms and knee. - Denies fractures from the fall. - Reports feeling off balance and lightheaded when getting into bed. - No specific diet; currently consuming crackers and Gatorade to lose weight. - Denies tobacco use. - Wears glasses; had cataract and glaucoma surgery on the right eye last year, plans to have the left eye done. - A1c today was 5.9, same as last year. - Does not take medications for diabetes; checks blood sugar at home once a month, with readings ranging from 150-200 mg/dL. - Checks blood pressure at home, readings similar to today's measurement. - Denies chest pain or palpitations since last week. - Recent family deaths causing significant stress. DIABETES MELLITUS: Ms. Llamas was last seen over a year ago for her diabetes. She has been diet controlled. Since our last visit she denies excessive thirst or increased frequency of urination, chest pain or dyspnea , numbness, tingling or pain in extremities, new or unusual visual symptoms, low sugar/hypoglycemic reactions, weight loss/gain, lightheadedness/dizziness, and bowel changes/loose stools. Follows a diabetic diet most of the time. She is compliant with medication(s) and is tolerating med(s) without any side effects. She reports checking her glucose on a infrequent to not at all basis schedule with sugars in the 150-200 range. Patient's last HgA1C was Hemoglobin A1C (%) Date Value 06/01/2020 6.2 10/20/2018 6.0 Hemoglobin A1C (POCT) (%) Date Value 01/03/2025 5.9 10/26/2023 5.9 ) Last Ophthalmology exam was within the past 12 months and was negative for Diabetic Retinopathy HTN: Ms. Llamas indicates that she is feeling well and denies any symptoms referable to elevated blood pressure. Specifically denies headache, chest pain, palpitations, dyspnea, peripheral edema, claudication symptoms, orthopnea, fatigue, and PND. Patient denies any side effects of her medication(s) and is compliant with their regimen. She does check BP's away from this office with average BP's in the 120s/70s range. Caden denies regular aerobic exercise. She watches her diet for sodium, low fat and low cholesterol most of the time. She is taking norvasc 10 mg daily, coreg 12.5mg 2x.day. Last 3 Encounter BP Readings: Date: BP: 12/28/2024 126/78 09/10/2024 125/83 09/07/2024 132/82 CMP: Glucose 89 09/10/2024 BUN 9 09/10/2024 Creatinine 1.03 09/10/2024 Sodium 139 09/10/2024 Potassium 3.8 09/10/2024 Chloride 105 09/10/2024 CO2 23 09/10/2024 Protein, Total 7.4 09/10/2024 Albumin 4.0 09/10/2024 Calcium 9.1 09/10/2024 Alkaline Phosphatase 138 09/10/2024 Bilirubin, Total 0.3 09/10/2024 AST 18 09/10/2024 ALT 8 09/10/2024 Anxiety: she was last seen 12/28/24 for anxiety and panic attacks. She was started on Effexor 37.5 mg once daily and short term rx for xanax given for as needed. Recent family tragedies and increase stress related to this and work triggered this. Denies feeling depressed. - Started on Effexor during last visit; reports it is helping at work and home. - Has used Xanax twice at work. - Considering changing jobs due to stress. Neuropathy: - Diagnosed 4 years ago; experiencing severe tingling and pain in feet, legs, and hands, worse at night. - Taking gabapentin 1600 mg daily, reports it is no longer effective. - Symptoms causing significant sleep disturbance. Sleep Apnea: - Diagnosed 6 years ago; does not use CPAP mask due to discomfort. - Reports snoring and waking up every 2 hours to urinate. - Believes sleep apnea has improved. Neuropathy: dx ~ 4yrs ago. bilateral feet and leg neuropathy. Preventative: PAST MEDICAL HISTORY Diagnosis Date Active asthma (HCC) Anxiety Arthritis of knee, left 10/21/2012 Brain aneurysm ([facility]) Diabetes mellitus type 2, uncomplicated (HCC) Diabetes mellitus type 2, uncomplicated (HCC) 10/20/2018 Fibroids Hyperlipidemia LDL goal < 100 02/25/2013 Hypertension Morbidly obese ([facility]) 10/20/2018 RUTH (obstructive sleep apnea) 10/20/2018 Peripheral neuropathy 10/20/2018 Pulmonary embolism ([facility]) 12/13/2012 Right shoulder injury 10/21/2012 Stroke ([facility]) PAST SURGICAL HISTORY Procedure Laterality Date APPENDECTOMY ARTHRP KNE CONDYLEANDPLATU MEDIALANDLAT COMPARTMENTS Right 10/27/2018 (more content not included)... [facility] 01-03-2025 History of Present illness Narrative Images from the original note were not included. SUBJECTIVE: Caden Llamas is a 69 year old female who presents for WAE. PMH DM, HTN, anxiety, asthma, brain aneurysm, insomnia, GERD, RUTH, and Hyperlipidemia. Here with her Luis. Medicare Wellness Exam: - No falls recently; had a fall 7 months ago on front steps, resulting in skin abrasions on arms and knee. - Denies fractures from the fall. - Reports feeling off balance and lightheaded when getting into bed. - No specific diet; currently consuming crackers and Gatorade to lose weight. - Denies tobacco use. - Wears glasses; had cataract and glaucoma surgery on the right eye last year, plans to have the left eye done. - A1c today was 5.9, same as last year. - Does not take medications for diabetes; checks blood sugar at home once a month, with readings ranging from 150-200 mg/dL. - Checks blood pressure at home, readings similar to today's measurement. - Denies chest pain or palpitations since last week. - Recent family deaths causing significant stress. DIABETES MELLITUS: Ms. Llamas was last seen over a year ago for her diabetes. She has been diet controlled. Since our last visit she denies excessive thirst or increased frequency of urination, chest pain or dyspnea , numbness, tingling or pain in extremities, new or unusual visual symptoms, low sugar/hypoglycemic reactions, weight loss/gain, lightheadedness/dizziness, and bowel changes/loose stools. Follows a diabetic diet most of the time. She is compliant with medication(s) and is tolerating med(s) without any side effects. She reports checking her glucose on a infrequent to not at all basis schedule with sugars in the 150-200 range. Patient's last HgA1C was Hemoglobin A1C (%) Date Value 06/01/2020 6.2 10/20/2018 6.0 Hemoglobin A1C (POCT) (%) Date Value 01/03/2025 5.9 10/26/2023 5.9 ) Last Ophthalmology exam was within the past 12 months and was negative for Diabetic Retinopathy HTN: Ms. Llamas indicates that she is feeling well and denies any symptoms referable to elevated blood pressure. Specifically denies headache, chest pain, palpitations, dyspnea, peripheral edema, claudication symptoms, orthopnea, fatigue, and PND. Patient denies any side effects of her medication(s) and is compliant with their regimen. She does check BP's away from this office with average BP's in the 120s/70s range. Caden denies regular aerobic exercise. She watches her diet for sodium, low fat and low cholesterol most of the time. She is taking norvasc 10 mg daily, coreg 12.5mg 2x.day. Last 3 Encounter BP Readings: Date: BP: 12/28/2024 126/78 09/10/2024 125/83 09/07/2024 132/82 CMP: Glucose 89 09/10/2024 BUN 9 09/10/2024 Creatinine 1.03 09/10/2024 Sodium 139 09/10/2024 Potassium 3.8 09/10/2024 Chloride 105 09/10/2024 CO2 23 09/10/2024 Protein, Total 7.4 09/10/2024 Albumin 4.0 09/10/2024 Calcium 9.1 09/10/2024 Alkaline Phosphatase 138 09/10/2024 Bilirubin, Total 0.3 09/10/2024 AST 18 09/10/2024 ALT 8 09/10/2024 Anxiety: she was last seen 12/28/24 for anxiety and panic attacks. She was started on Effexor 37.5 mg once daily and short term rx for xanax given for as needed. Recent family tragedies and increase stress related to this and work triggered this. Denies feeling depressed. - Started on Effexor during last visit; reports it is helping at work and home. - Has used Xanax twice at work. - Considering changing jobs due to stress. Neuropathy: - Diagnosed 4 years ago; experiencing severe tingling and pain in feet, legs, and hands, worse at night. - Taking gabapentin 1600 mg daily, reports it is no longer effective. - Symptoms causing significant sleep disturbance. Sleep Apnea: - Diagnosed 6 years ago; does not use CPAP mask due to discomfort. - Reports snoring and waking up every 2 hours to urinate. - Believes sleep apnea has improved. Neuropathy: dx ~ 4yrs ago. bilateral feet and leg neuropathy. Preventative: PAST MEDICAL HISTORY Diagnosis Date Active asthma ([facility]) Anxiety Arthritis of knee, left 10/21/2012 Brain aneurysm ([facility]) Diabetes mellitus type 2, uncomplicated ([facility]) Diabetes mellitus type 2, uncomplicated ([facility]) 10/20/2018 Fibroids Hyperlipidemia LDL goal < 100 02/25/2013 Hypertension Morbidly obese ([facility]) 10/20/2018 RUTH (obstructive sleep apnea) 10/20/2018 Peripheral neuropathy 10/20/2018 Pulmonary embolism ([facility]) 12/13/2012 Right shoulder injury 10/21/2012 Stroke ([facility]) PAST SURGICAL HISTORY Procedure Laterality Date APPENDECTOMY ARTHRP KNE CONDYLE&PLATU MEDIAL&LAT COMPARTMENTS Right 10/27/2018 Knee replacement, total BRAIN SURGERY HX 02/2013 brain aneurysm coiled CARDIAC CATH 2019 CHOLECYSTECTOMY Cholecystectomy SHOULDER SURGERY HX Right TOTAL KNEE REPLACEMENT Left 02/02/2024 VAGINAL HYSTERECTOMY UTERUS 250 GM/< Hysterectomy, vaginal, Fibroids Social History Tobacco Use Smoking status: Never Smokeless tobacco: Never Tobacco comments: Smoked as a teenager Vaping Use Vaping status: Never Used Substance Use Topics Alcohol use: No Drug use: No ALLERGIES Allergen Reactions Cats Swelling Latex Rash Lisinopril Swelling Tongue swells up Current Outpatient Medications Medication Sig albuterol HFA (PROAIR HFA) 90 mcg/actuation inhaler Inhale 1 puff as instructed every 4 hours as needed for wheezing/shortness of breath. ALPRAZolam (XANAX) 0.25 mg tablet Take 1 tablet by mouth three times a day as needed for up to 7 days. gabapentin (NEURONTIN) 800 mg tablet Take 1 tablet by mouth three times a day for 180 days. ergocalciferol 50,000 unit capsule (VITAMIN D2, DRISDOL) Take 1 capsule by mouth one time a week. carvedilol (COREG) 12.5 mg tablet Take 1 tablet by mouth two times a day with meals. meclizine (ANTIVERT) 25 mg tab Take 1 tablet by mouth three times a day as needed. amLODIPine (NORVASC) 10 mg tablet Take 1 tablet by mouth once daily. acetaminophen (TYLENOL) 500 mg tablet Take 2 tablets by mouth every 8 hours as needed for pain. omeprazole (PRILOSEC) 40 mg capsule Take 1 capsule by mouth once daily. ferrous sulfate 325 mg (65 mg iron) tablet Take 325 mg by mouth daily with breakfast. gabapentin (NEURONTIN) 100 mg capsule Take 1 capsule by mouth daily at bedtime for 90 days. To be taken with her 800 mg at bedtime for total of 900 mg venlafaxine (EFFEXOR) 37.5 mg tablet Take 1 tablet by mouth once daily. semaglutide (OZEMPIC) 0.25 mg or 0.5 mg (2 mg/3 mL) pen Inject 0.25 mg subcutaneously one time a week. CPAP (Patient not taking: Reported on 04/19/2024) No current facility-administered medications for this visit. Review of Systems Constitutional: Negative for chills, diaphoresis, fever, malaise/fatigue and weight loss. Respiratory: Negative for cough, shortness of breath and wheezing. Cardiovascular: Negative for chest pain, palpitations and leg swelling. Genitourinary: Negative for dysuria, frequency and urgency. Musculoskeletal: Positive for joint pain. Chronic stable Neurological: Negative for dizziness and headaches. Psychiatric/Behavioral: Positive for depression. The patient is nervous/anxious and has insomnia. See HPI Constitutional: (+) fatigue, (+) weight gain Ears/Nose/Mouth/Throat: (-) hearing loss Cardiovascular: (-) chest pain, (-) palpitations Respiratory: (+) snoring Genitourinary: () nocturia Musculoskeletal: (+) extremity pain neuropathy worse at night Neurological: (+) extremity numbness, (+) extremity tingling, (+) restless legs, (+) dizziness Psychiatric: (+) anxiety, (+) panic attacks, (+) insomnia 01/03/25 1032 BP: 128/72 Pulse: 66 Resp: 16 Temp: 36.8 C (98.2 F) SpO2: 98% Weight: 101.6 kg (224 lb) Height: 157.5 cm (5' 2) Physical Exam Vitals reviewed. Constitutional: General: She is not in acute distress. Appearance: She is obese. She is not ill-appearing. HENT: Head: Normocephalic and atraumatic. Cardiovascular: Rate and Rhythm: Normal rate and regular rhythm. Pulses: Normal pulses. Carotid pulses are 2+ on the right side and 2+ on the left side. Radial pulses are 2+ on the right side and 2+ on the left side. Heart sounds: Normal heart sounds, S1 normal and S2 normal. No murmur heard. Pulmonary: Effort: Pulmonary effort is normal. No respiratory distress. Breath sounds: Normal breath sounds. No decreased breath sounds, wheezing, rhonchi or rales. Musculoskeletal: Right lower leg: No edema. Left lower leg: No edema. Skin: General: Skin is warm and dry. Neurological: Mental Status: She is alert and oriented to person, place, and time. Psychiatric: Attention and Perception: Attention and perception normal. Mood and Affect: Mood and affect normal. Speech: Speech normal. Behavior: Behavior normal. Thought Content: Thought content normal. Cognition and Memory: Cognition and memory normal. Latest Ref Rn 10/26/2023 09/10/2024 12/28/2024 01/03/2025 Protein, Total 6.3 - 8.0 g/dL 7.4 Albumin 3.9 - 4.9 g/dL 4.0 Calcium 8.5 - 10.2 mg/dL 9.1 Bilirubin, Total 0.2 - 1.3 mg/dL 0.3 Alkaline Phosphatase 34 - 123 U/L 138 (H) AST 13 - 35 U/L 18 ALT 7 - 38 U/L 8 Glucose 74 - 99 mg/dL 89 BUN 7 - 21 mg/dL 9 Creatinine 0.58 - 0.96 mg/dL 1.03 (H) Sodium 136 - 144 mmol/L 139 Potassium 3.7 - 5.1 mmol/L 3.8 Chloride 98 - 107 mmol/L 105 CO2 22 - 30 mmol/L 23 Anion Gap 8 - 15 mmol/L 11 eGFR >=60 mL/min/1.73m 59 (L) WBC 3.70 - 11.00 k/uL 5.29 RBC 3.90 - 5.20 m/uL 4.08 Hemoglobin 11.5 - 15.5 g/dL 11.0 (L) Hematocrit 36.0 - 46.0 % 35.4 (L) MCV 80.0 - 100.0 fL 86.8 MCH 26.0 - 34.0 pg 27.0 MCHC 30.5 - 36.0 g/dL 31.1 RDW-CV 11.5 - 15.0 % 13.9 Platelet Count 150 - 400 k/uL 231 MPV 9.0 - 12.7 fL 11.0 Absolute nRBC <0.01 k/uL <0.01 Cholesterol, Total <200 mg/dL 193 Triglyceride <150 mg/dL 136 HDL Cholesterol >39 mg/dL 56 Non HDL Cholesterol <130 mg/dL 137 (H) Fasting Time hrs 12 VLDL Cholesterol <30 mg/dL 27 TC:HDL Ratio <5.10 3.45 LDL Cholesterol, Calculated <100 mg/dL 110 (H) LDL:HDL Ratio <2.54 1.96 Creatinine, Ur Random (UCRR) 42.2 - 237.9 mg/dL 57.3 Albumin, Urine Random mg/L 13.5 Albumin/Creat Ratio <30 mg/g 24 Hemoglobin A1C (POCT) 4.3 - 5.6 % 5.9 ! 5.9 ! Vitamin D 25 Hydroxy 31.0 - 80.0 ng/mL 17.7 (L) TSH 0.270 - 4.200 mIU/L 0.468 Legend: ! Abnormal (H) High (L) Low All of the above discussed with the patient in detail. Patient is in agreement with the above plan. Moises Malcolm APRN.ELIZA Llamas is a 69 year old female here for a Medicare wellness visit. Medicare Health Risk Assessment General Health Poor Exercise: Minutes/Day 0 min Exercise: Days/Week 0 days Alcohol: Daily Use Never Alcohol: Drinks/Day Patient does not drink Alcohol: 6 or more drinks Never Feel off balance At night before bed Concerns: Teeth/Dentures Denies Concerns: Sexual function Na Troubled by feelings Yes anxiety Frequency: Eating healthy diet Denies ADLs requiring help None Safety precautions in home/vehicle Always Smoke, vape, chews tobacco Denies Difficulty hearing Denies Difficulty seeing Wears glasses Current Providers Specialists: I have reviewed specialist-related care of the patient in the medical record. Current care team: Patient Care Team: Moises Malcolm APRN.ELIZA as PCP - General (Internal Medicine) Marcello Lloyd PA-C as Referring (Orthopedics) Makayla Bradley MD as Home Care Provider (Orthopedics) Medical/Family history review Reviewed and updated problem list, medical/surgical/family/social history, medications, and allergies. Opioid use review Opioid Medications (last 90 days) No data to display Anxiety/Depression screening PHQ-9 Score: 16 (Moderately Severe Depression) Recommendation: no further intervention at this time Cognitive screening Mini Cog Score: 4 Cognitive screening reviewed and No further action needed (score 3-5). Functional Observation Was the patient's Timed Up & Go test unsteady or >= 12 seconds? No Advance Care Planning Patient did not wish or was not able to name a surrogate decision maker or provide an advance care plan Measurements BP 128/72 Pulse 66 Temp 36.8 C (98.2 F) Resp 16 Ht 157.5 cm (5' 2) Wt 101.6 kg (224 lb) SpO2 98% BMI 40.97 kg/m Vision Screening: Follows with optometry/ophthalmology Declines visual acuity screen Assessment/Plan Medicare annual wellness visit, subsequent (Z00.00) - Counseled on healthy diet and regular exercise - Fall avoidance information provided - Personalized prevention plan provided - Discussed need for and benefit of weight loss. BMI 40.97 kg/(m^2) Additional Concerns The following concerns were also discussed with the patient: Weight loss medication PHYSICAL EXAM BP 128/72 Pulse 66 Temp 36.8 C (98.2 F) Resp 16 Ht 157.5 cm (5' 2) Wt 101.6 kg (224 lb) SpO2 98% BMI 40.97 kg/m GENERAL: well appearing, alert, in no acute distress CARDIOVASCULAR: regular rate and rhythm. No murmur, rubs or gallops. PULMONARY: clear to auscultation, no wheezing, rhonchi, or crackles ABDOMEN: soft, non-tender, non-distended, no masses or organomegaly EXTREMITY: no lower extremity edema. No skin discoloration. 1. Medicare annual wellness visit, subsequent (Z00.00) - Completed Medicare annual wellness visit. - Cognitive function assessed; performed well on cognitive exams. - No recent falls reported; discussed previous fall 7 months ago with no fractures. - No advanced directive package, power of ssrs developer, or living will in place. - Declined vaccines. 2. Type 2 diabetes mellitus without complication, without long-term current use of insulin (HCC) (E11.9) - A1c stable at 5.9%, consistent with last year's result. - Diet-controlled, no medications. - Monitors blood glucose at home, with recent readings around 150-200 mg/dL. - Ordered Ozempic 0.25 mg once weekly for weight management; discussed potential side effects including constipation, abdominal pain, nausea, and vomiting. - Advised to monitor bowel movements and use satf-[id number] remedies like Miralax if necessary. - Scheduled follow-up in 4 weeks via virtual visit to monitor weight and medication tolerance. 3. Moderate recurrent major depression (HCC) (F33.1) - Current treatment with Effexor; refill ordered. - Symptoms improving; patient reports feeling more grounded. - Follow-up in 4 weeks to assess medication efficacy. 4. Anxiety (F41.9) 5. Panic attack as reaction to stress (F41.0) - Initiated Effexor at last visit; patient reports significant improvement in anxiety and panic attacks. - Used Xanax twice for acute episodes at work. - Continue current Effexor dosage; refill ordered. - Follow-up in 4 weeks to reassess. 6. Asthma, unspecified asthma severity, unspecified whether complicated, unspecified whether persistent (HCC) (J45.909) - chronic stable on current POC 7. Hypertension, unspecified type (I10) - Blood pressure well-controlled, readings around 120s/70s. - Continue current management. 8. Other polyneuropathy (G62.89) - Neuropathy in feet and legs worsening, particularly at night; current gabapentin 1600 mg not effective. - Increased gabapentin by 100 mg at bedtime for a total of 900 mg at bedtime. - Monitor for improvement; follow-up in 4 weeks. 9. Encounter for screening mammogram for malignant neoplasm of breast (Z12.31) - mammogram ordered 10. Asymptomatic menopause (Z78.0) - bone density as ordered 11. RUTH (obstructive sleep apnea) (G47.33) - Diagnosed 6 years ago; not using CPAP. - Last sleep study in 2013 showed oxygen saturation as low as 88%. - Discussed potential impact on neuropathy RLS symptoms. - Patient not ready for repeat sleep study; will consider in the future. 12. Class 3 severe obesity with serious comorbidity and body mass index (BMI) of 40.0 to 44.9 in adult, unspecified obesity type (HCC) (E66.813) - Initiated Ozempic 0.25 mg once weekly for weight management. - Discussed potential side effects and importance of monitoring bowel movements. - Scheduled follow-up in 4 weeks via virtual visit to monitor weight and medication tolerance. - Patient to weigh herself weekly and log results. 13. Stage 3a, chronic kidney disease (HCC) (N18.31) - stable Moises Malcolm APRN.HUMAN MACHINE INTERFACE ENGINEER documented in this encounter [facility] 12-28-2024 Note HNO ID: [id number] Author: MOISES MALCOLM APRN.HUMAN MACHINE INTERFACE ENGINEER Service: ? Author Type: Nurse Practitioner Type: Progress Notes Filed: 12/28/2024 11:43 Note Text: Recording using [employer] software for draft documentation of the visit was discussed with the patient/authorized sales solutions representative; all questions welcomed and answered. Patient/authorized sales solutions representative agreed to proceed This note was created using [employer]. Subjective Caden Llamas is a 69 year old female here today for anxiety. Anxiety and Panic Attacks: - Recent family tragedies: nephew committed suicide by gunshot to the mouth on Thursday; cousin's daughter of a myocardial infarction last night. - Nephew's scheduled for next Thursday, coinciding with Caden's birthday. - Experienced a severe panic attack this morning at work, first in 6-7 months. - Symptoms included dyspnea and chest tightness. - Left work and drove 20 minutes home, describing the drive as feeling like an hour. - Calmed by calling sports therapist for prayer. - History of panic attacks, last episode 7 months ago triggered by an argument with . - Previously took medication for anxiety, but does not recall the name. - Expresses feeling overwhelmed and unsure of what to do. - she also started new job last week at a new company. states the place is filthy. states she hates it. she reports repetitive motions is causing her pain in right shoulder which she already has chronic pain in Depression: - Denies feeling depressed, depressed, depressed. - Recent dental visit caused emotional distress; has broken teeth and ill-fitting dentures. Diabetes: - Diet-controlled. - Last A1c was 5.9. Weight Gain: - Recent weight gain after previous weight loss. - Expresses frustration over weight gain and financial investment in clothing. - Reports overeating and attempting to induce emesis to prevent further weight gain. - Previously took diet pills in the 1970s and 1980s to maintain weight. Right Arm Pain: - Chronic pain due to a torn rotator cuff. - Pain exacerbated by repetitive motion at new job. - Wears a sleeve for support. - Declined recommended surgery for rotator cuff tear. 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 - Describes new job environment as filthy and dirty, with discomfort from fans. - Expresses dissatisfaction with current job and is actively seeking new employment. - Financial stress due to 's recent detention and pending settlement from work injury. ALLERGIES Allergen Reactions Cats Swelling Latex Rash Lisinopril Swelling Tongue swells up Current Outpatient Medications Medication Sig Dispense Refill gabapentin (NEURONTIN) 800 mg tablet Take 1 tablet by mouth three times a day for 180 days. 270 tablet 1 ergocalciferol 50,000 unit capsule (VITAMIN D2, DRISDOL) Take 1 capsule by mouth one time a week. 4 capsule 1 carvedilol (COREG) 12.5 mg tablet Take 1 tablet by mouth two times a day with meals. 180 tablet 0 meclizine (ANTIVERT) 25 mg tab Take 1 tablet by mouth three times a day as needed. 30 tablet 1 amLODIPine (NORVASC) 10 mg tablet Take 1 tablet by mouth once daily. 90 tablet 1 acetaminophen (TYLENOL) 500 mg tablet Take 2 tablets by mouth every 8 hours as needed for pain. 90 tablet 0 omeprazole (PRILOSEC) 40 mg capsule Take 1 capsule by mouth once daily. 90 capsule 1 ferrous sulfate 325 mg (65 mg iron) tablet Take 325 mg by mouth daily with breakfast. albuterol HFA (PROAIR HFA) 90 mcg/actuation inhaler Inhale 1 puff as instructed every 4 hours as needed for wheezing/shortness of breath. 1 each 5 venlafaxine (EFFEXOR) 37.5 mg tablet Take 1 tablet by mouth once daily. 30 tablet 0 ALPRAZolam (XANAX) 0.25 mg tablet Take 1 tablet by mouth three times a day as needed for up to 7 days. 21 tablet 0 CPAP (Patient not taking: Reported on 04/19/2024) No current facility-administered medications for this visit. ACTIVE PROBLEM LIST Climacteric Hypertension Hyperlipidemia With Target Low Density Lipoprotein (Ldl) Cholesterol Less Than 100 Mg/Dl Arthritis of Right Knee Urinary Incontinence Lower Urinary Tract Symptoms (Luts) H/O Brain Aneurysm H/O Stroke (HCC) Asthma (Hcc) Peripheral Neuropathy Weiss (Dyspnea On Exertion) Chest Pain of Uncertain Etiology Stage 2 Chronic Kidney Disease Anemia Anxiety Morbidly Obese (Hcc) Ruth (Obstructive Sleep Apnea) S/P Total Knee Replacement Post-Traumatic Osteoarthritis of Right Shoulder Rotator Cuff Syndrome of Left Shoulder Atrial Fibrillation (Hcc) Obesity, Class III, BMI >= 40 S/P Total Knee Arthroplasty, Left PAST MEDICAL HISTORY Diagnosis Date Active asthma (HCC) Anxiety Arthritis of knee, left 10/21/2012 Brain aneurysm (HCC) Diabetes mellitus type 2, uncomplicated (HCC) Diabetes mellitus type 2, uncomplicated (HCC) (more content not included)... [facility] 12-28-2024 History of Present illness Narrative Recording using [employer] software for draft documentation of the visit was discussed with the patient/authorized sales solutions representative; all questions welcomed and answered. Patient/authorized sales solutions representative agreed to proceed This note was created using [employer]. Subjective Caden Llamas is a 69 year old female here today for anxiety. Anxiety and Panic Attacks: - Recent family tragedies: nephew committed suicide by gunshot to the mouth on Thursday; cousin's daughter of a myocardial infarction last night. - Nephew's scheduled for next Thursday, coinciding with Caden's birthday. - Experienced a severe panic attack this morning at work, first in 6-7 months. - Symptoms included dyspnea and chest tightness. - Left work and drove 20 minutes home, describing the drive as feeling like an hour. - Calmed by calling sports therapist for prayer. - History of panic attacks, last episode 7 months ago triggered by an argument with . - Previously took medication for anxiety, but does not recall the name. - Expresses feeling overwhelmed and unsure of what to do. - she also started new job last week at a new company. states the place is filthy. states she hates it. she reports repetitive motions is causing her pain in right shoulder which she already has chronic pain in Depression: - Denies feeling depressed, depressed, depressed. - Recent dental visit caused emotional distress; has broken teeth and ill-fitting dentures. Diabetes: - Diet-controlled. - Last A1c was 5.9. Weight Gain: - Recent weight gain after previous weight loss. - Expresses frustration over weight gain and financial investment in clothing. - Reports overeating and attempting to induce emesis to prevent further weight gain. - Previously took diet pills in the 1970s and 1980s to maintain weight. Right Arm Pain: - Chronic pain due to a torn rotator cuff. - Pain exacerbated by repetitive motion at new job. - Wears a sleeve for support. - Declined recommended surgery for rotator cuff tear. 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 - Describes new job environment as filthy and dirty, with discomfort from fans. - Expresses dissatisfaction with current job and is actively seeking new employment. - Financial stress due to 's recent detention and pending settlement from work injury. ALLERGIES Allergen Reactions Cats Swelling Latex Rash Lisinopril Swelling Tongue swells up Current Outpatient Medications Medication Sig Dispense Refill gabapentin (NEURONTIN) 800 mg tablet Take 1 tablet by mouth three times a day for 180 days. 270 tablet 1 ergocalciferol 50,000 unit capsule (VITAMIN D2, DRISDOL) Take 1 capsule by mouth one time a week. 4 capsule 1 carvedilol (COREG) 12.5 mg tablet Take 1 tablet by mouth two times a day with meals. 180 tablet 0 meclizine (ANTIVERT) 25 mg tab Take 1 tablet by mouth three times a day as needed. 30 tablet 1 amLODIPine (NORVASC) 10 mg tablet Take 1 tablet by mouth once daily. 90 tablet 1 acetaminophen (TYLENOL) 500 mg tablet Take 2 tablets by mouth every 8 hours as needed for pain. 90 tablet 0 omeprazole (PRILOSEC) 40 mg capsule Take 1 capsule by mouth once daily. 90 capsule 1 ferrous sulfate 325 mg (65 mg iron) tablet Take 325 mg by mouth daily with breakfast. albuterol HFA (PROAIR HFA) 90 mcg/actuation inhaler Inhale 1 puff as instructed every 4 hours as needed for wheezing/shortness of breath. 1 each 5 venlafaxine (EFFEXOR) 37.5 mg tablet Take 1 tablet by mouth once daily. 30 tablet 0 ALPRAZolam (XANAX) 0.25 mg tablet Take 1 tablet by mouth three times a day as needed for up to 7 days. 21 tablet 0 CPAP (Patient not taking: Reported on 04/19/2024) No current facility-administered medications for this visit. ACTIVE PROBLEM LIST Climacteric Hypertension Hyperlipidemia With Target Low Density Lipoprotein (Ldl) Cholesterol Less Than 100 Mg/Dl Arthritis of Right Knee Urinary Incontinence Lower Urinary Tract Symptoms (Luts) H/O Brain Aneurysm H/O Stroke (HCC) Asthma (Hcc) Peripheral Neuropathy Weiss (Dyspnea On Exertion) Chest Pain of Uncertain Etiology Stage 2 Chronic Kidney Disease Anemia Anxiety Morbidly Obese (Hcc) Ruth (Obstructive Sleep Apnea) S/P Total Knee Replacement Post-Traumatic Osteoarthritis of Right Shoulder Rotator Cuff Syndrome of Left Shoulder Atrial Fibrillation (Hcc) Obesity, Class III, BMI >= 40 S/P Total Knee Arthroplasty, Left PAST MEDICAL HISTORY Diagnosis Date Active asthma (HCC) Anxiety Arthritis of knee, left 10/21/2012 Brain aneurysm (HCC) Diabetes mellitus type 2, uncomplicated (HCC) Diabetes mellitus type 2, uncomplicated (HCC) 10/20/2018 Fibroids Hyperlipidemia LDL goal < 100 02/25/2013 Hypertension Morbidly obese (HCC) 10/20/2018 RUTH (obstructive sleep apnea) 10/20/2018 Peripheral neuropathy 10/20/2018 Pulmonary embolism (HCC) 12/13/2012 Right shoulder injury 10/21/2012 Stroke (HCC) PAST SURGICAL HISTORY Procedure Laterality Date APPENDECTOMY ARTHRP KNE CONDYLE&PLATU MEDIAL&LAT COMPARTMENTS Right 10/27/2018 Knee replacement, total BRAIN SURGERY HX 02/2013 brain aneurysm coiled CARDIAC CATH 2019 CHOLECYSTECTOMY Cholecystectomy SHOULDER SURGERY HX Right TOTAL KNEE REPLACEMENT Left 02/02/2024 VAGINAL HYSTERECTOMY UTERUS 250 GM/< Hysterectomy, vaginal, Fibroids Social History Tobacco Use Smoking status: Never Smokeless tobacco: Never Tobacco comments: Smoked as a teenager Vaping Use Vaping status: Never Used Substance Use Topics Alcohol use: No Drug use: No Family History Problem Relation Age of Onset Cancer Mother Liver Diabetes Mother Hypertension Mother Lipids Mother Heart Father [place] Psychiatry Sister Hypertension Sister Diabetes Sister Review of Systems Constitutional: Negative for chills, diaphoresis, fatigue and fever. Respiratory: Negative for cough, shortness of breath and wheezing. Cardiovascular: Positive for chest pain. Negative for palpitations and leg swelling. See HPI Neurological: Negative for dizziness, light-headedness and headaches. Psychiatric/Behavioral: Negative for dysphoric mood and sleep disturbance. The patient is nervous/anxious. Objective BP 126/78 Pulse 100 Temp 37.2 C (98.9 F) Resp 18 Ht 157.5 cm (5' 2) Wt 102.1 kg (225 lb) SpO2 98% BMI 41.15 kg/m Physical Exam Vitals and nursing note reviewed. Constitutional: General: She is not in acute distress. Appearance: She is obese. She is not ill-appearing. HENT: Head: Normocephalic and atraumatic. Cardiovascular: Rate and Rhythm: Normal rate and regular rhythm. Pulses: Normal pulses. Heart sounds: Normal heart sounds. Pulmonary: Effort: Pulmonary effort is normal. No respiratory distress. Breath sounds: Normal breath sounds. No wheezing, rhonchi or rales. Skin: General: Skin is warm and dry. Neurological: Mental Status: She is alert and oriented to person, place, and time. Psychiatric: Mood and Affect: Mood normal. Behavior: Behavior normal. Thought Content: Thought content normal. Judgment: Judgment normal. 1. Anxiety (F41.9) 2. Panic attack as reaction to stress (F41.0) - Recent significant family stressors including multiple deaths have exacerbated anxiety symptoms, leading to a panic attack today characterized by dyspnea and chest tightness. - History of panic attacks, last episode approximately seven months ago. - Previously prescribed venlafaxine by RETIREMENT MANAGER, Mariann Faustin. - Initiated venlafaxine 37.5 mg PO daily; may increase to 75 mg after evaluation next week. - Prescribed Xanax 0.25 mg PO TID prn for acute anxiety symptoms; dispensed 21 tablets. - Prescriptions sent to [facility] in [place]. - Follow-up scheduled for 05/05 to assess response to treatment and discuss further management. 3. Type 2 diabetes mellitus without complication, without long-term current use of insulin (HCC) (E11.9) - Last HbA1c was 5.9% indicating diet-controlled diabetes. - Will discuss potential weight loss medications at the next appointment on 05/05. 4. Asthma, unspecified asthma severity, unspecified whether complicated, unspecified whether persistent (HCC) (J45.909) Moises Malcolm APRN.HUMAN MACHINE INTERFACE ENGINEER documented in this encounter [facility] 11-24-2024 Telephone encounter Note patient electronically requesting refills as follows: Last seen 08/30/24 . Last refill 06/07/24 . Requested Prescriptions Pending Prescriptions Disp Refills gabapentin (NEURONTIN) 800 mg tablet 270 tablet 1 Sig: Take 1 tablet by mouth three times a day for 180 days. Please review and advise. Paula Galeas MA [facility] 11-24-2024 Miscellaneous Notes patient electronically requesting refills as follows: Last seen 08/30/24 . Last refill 06/07/24 . Requested Prescriptions Pending Prescriptions Disp Refills gabapentin (NEURONTIN) 800 mg tablet 270 tablet 1 Sig: Take 1 tablet by mouth three times a day for 180 days. Please review and advise. Paula Galeas MA documented in this encounter [facility] 11-23-2024 Note HNO ID: [id number] Author: MELANIE MAGANA PA-C Service: ? Author Type: Physician Kitchen Clerk Type: Progress Notes Filed: 11/23/2024 09:34 Note Text: CHIEF COMPLAINT: Caden Llamas is a 69 year old female who presents today for follow up of left kne pain. HISTORY OF PRESENT ILLNESS: She notes pain is getting worse. She fell onto the knee 2 months ago. She feels the pain is increasing. She has even quit her job because of the knee pain and difficulty rising from a seated position She notes no interval injury. She notes no new musculoskeletal or neurologic complaints. She notes aggravating factors of steps after sitting for a while and management or change of inclines. Treatments so far have included medication (Voltaren Gel), physical therapy (ice man), and the assistive use of a cane. Caden denies new trauma REVIEW OF SYMPTOMS: Constitutional: patient denies any recent fever or significant change in weight Gastrointestinal: patient denies any current abdominal discomfort Musculoskeletal: as noted in the HPI Neurologic: patient denies any peripheral numbness or radiation of pain SOCIAL HISTORY: Tobacco Use: Never SOCIAL HISTORY: Tobacco Use: Never ALLERGIES: ALLERGIES Allergen Reactions Cats Swelling Latex Rash Lisinopril Swelling Tongue swells up PAST MEDICAL HISTORY: PAST MEDICAL HISTORY Diagnosis Date Active asthma ([facility]) Anxiety Arthritis of knee, left 10/21/2012 Brain aneurysm ([facility]) Diabetes mellitus type 2, uncomplicated ([facility]) Diabetes mellitus type 2, uncomplicated ([facility]) 10/20/2018 Fibroids Hyperlipidemia LDL goal < 100 02/25/2013 Hypertension Morbidly obese ([facility]) 10/20/2018 RUTH (obstructive sleep apnea) 10/20/2018 Peripheral neuropathy 10/20/2018 Pulmonary embolism ([facility]) 12/13/2012 Right shoulder injury 10/21/2012 Stroke ([facility]) PHYSICAL EXAMINATION: Patient's vitals and nursing notes were reviewed. Vitals: There were no vitals taken for this visit. General Appearance: Well appearing, alert, in no acute distress, well-hydrated, and well nourished Skin: Skin color, texture, turgor normal, no suspicious rashes or lesions noted Cardiovascular: pedal pulses and radial pulses normal, no signs of upper or lower extremity edema Respiratory: no respiratory distress, no audible wheezing, no labored breathing, symmetric thoracic excursion Musculoskeletal: Knee Musculoskeletal Exam Inspection Right Previous incision: anterior Incision: well-healed Palpation Right Tenderness: present Medial joint line: moderate Patellar tendon: severe Range of Motion Right Active extension: -5 Active flexion: 115 Strength Right Extension: 4/5. Extension is affected by pain. Instability Right Instability signs: none - stable IMAGING: Left knee is is in good position and appears well fixed, with what could be physiologic lucency under anterior femoral flange or a sign of loosening. CLINICAL IMPRESSION / ASSESSMENT: (T84.84XD, Z96.652) Pain due to total left knee replacement, subsequent encounter (primary encounter diagnosis) (M76.52) Patellar tendinitis of left knee (T84.84XA) Pain due to internal orthopedic prosthetic devices, implants and grafts, initial encounter RECOMMENDATION / PLAN: Continue ice and voltaren gel for patellar tendonitis Bone scan to assess for possible loosening. A negative result will be helpfuil but at 10 months post op a positive bone scan may still be normal. Follow up: after advanced imaging is complete to discuss results and next step in management Films prior to visit: No additional imaging warranted. Melanie Magana PA-C [facility] 11-23-2024 History of Present illness Narrative CHIEF COMPLAINT: Caden Llamas is a 69 year old female who presents today for follow up of left kne pain. HISTORY OF PRESENT ILLNESS: She notes pain is getting worse. She fell onto the knee 2 months ago. She feels the pain is increasing. She has even quit her job because of the knee pain and difficulty rising from a seated position She notes no interval injury. She notes no new musculoskeletal or neurologic complaints. She notes aggravating factors of steps after sitting for a while and management or change of inclines. Treatments so far have included medication (Voltaren Gel), physical therapy (ice man), and the assistive use of a cane. Caden denies new trauma REVIEW OF SYMPTOMS: Constitutional: patient denies any recent fever or significant change in weight Gastrointestinal: patient denies any current abdominal discomfort Musculoskeletal: as noted in the HPI Neurologic: patient denies any peripheral numbness or radiation of pain SOCIAL HISTORY: Tobacco Use: Never SOCIAL HISTORY: Tobacco Use: Never ALLERGIES: ALLERGIES Allergen Reactions Cats Swelling Latex Rash Lisinopril Swelling Tongue swells up PAST MEDICAL HISTORY: PAST MEDICAL HISTORY Diagnosis Date Active asthma ([facility]) Anxiety Arthritis of knee, left 10/21/2012 Brain aneurysm ([facility]) Diabetes mellitus type 2, uncomplicated ([facility]) Diabetes mellitus type 2, uncomplicated ([facility]) 10/20/2018 Fibroids Hyperlipidemia LDL goal < 100 02/25/2013 Hypertension Morbidly obese ([facility]) 10/20/2018 RUTH (obstructive sleep apnea) 10/20/2018 Peripheral neuropathy 10/20/2018 Pulmonary embolism ([facility]) 12/13/2012 Right shoulder injury 10/21/2012 Stroke ([facility]) PHYSICAL EXAMINATION: Patient's vitals and nursing notes were reviewed. Vitals: There were no vitals taken for this visit. General Appearance: Well appearing, alert, in no acute distress, well-hydrated, and well nourished Skin: Skin color, texture, turgor normal, no suspicious rashes or lesions noted Cardiovascular: pedal pulses and radial pulses normal, no signs of upper or lower extremity edema Respiratory: no respiratory distress, no audible wheezing, no labored breathing, symmetric thoracic excursion Musculoskeletal: Knee Musculoskeletal Exam Inspection Right Previous incision: anterior Incision: well-healed Palpation Right Tenderness: present Medial joint line: moderate Patellar tendon: severe Range of Motion Right Active extension: -5 Active flexion: 115 Strength Right Extension: 4/5. Extension is affected by pain. Instability Right Instability signs: none - stable IMAGING: Left knee is is in good position and appears well fixed, with what could be physiologic lucency under anterior femoral flange or a sign of loosening. CLINICAL IMPRESSION / ASSESSMENT: (T84.84XD, Z96.652) Pain due to total left knee replacement, subsequent encounter (primary encounter diagnosis) (M76.52) Patellar tendinitis of left knee (T84.84XA) Pain due to internal orthopedic prosthetic devices, implants and grafts, initial encounter RECOMMENDATION / PLAN: Continue ice and voltaren gel for patellar tendonitis Bone scan to assess for possible loosening. A negative result will be helpfuil but at 10 months post op a positive bone scan may still be normal. Follow up: after advanced imaging is complete to discuss results and next step in management Films prior to visit: No additional imaging warranted. Melanie Magana PA-C documented in this encounter [facility] 11-23-2024 History of Present illness Narrative Radiology Service Progress Note PATIENT NAME: Caden Llamas DATE OF SERVICE: November 23, 2024 TIME: 9:15 AM PATIENT IDENTITY VERIFICATION COMPLETED USING TWO (2) IDENTIFIERS: Name and Date of confirmed by patient verbally. FALL SCREENING: Has the patient had 2 falls in the last year or 1 fall with injury or currently using an Ambulatory Assistive Device (Walker, Cane, Wheelchair, Crutches, etc.)? No PATIENT GENDER DATA: Assigned female at . status: : No status: NO. PATIENT RELEVANT IMPLANT DATA REVIEWED: Not Applicable PATIENT PRESENTS WITH AN IMPLANTABLE OR ATTACHED PLASTERER FOREMAN: No RADIOLOGY DEPARTMENT: General X-ray: Exam(s) Completed: Lower Extremity X-Ray(s): Knee, AP / Lat / Merchant Left and Wt. Bearing PERIPHERAL IV DATA: Not applicable SIGNED BY: Ruby Sarah November 23, 2024 9:15 AM documented in this encounter [facility] 11-23-2024 Note HNO ID: [id number] Author: CANDI SR Tech Service: Radiology Author Type: Veterans' Counselor Type: Progress Notes Filed: 11/23/2024 09:15 Note Text: Radiology Service Progress Note PATIENT NAME: Caden Llamas DATE OF SERVICE: November 23, 2024 TIME: 9:15 AM PATIENT IDENTITY VERIFICATION COMPLETED USING TWO (2) IDENTIFIERS: Name and Date of confirmed by patient verbally. FALL SCREENING: Has the patient had 2 falls in the last year or 1 fall with injury or currently using an Ambulatory Assistive Device (Walker, Cane, Wheelchair, Crutches, etc.)? No PATIENT GENDER DATA: Assigned female at . status: : No status: NO. PATIENT RELEVANT IMPLANT DATA REVIEWED: Not Applicable PATIENT PRESENTS WITH AN IMPLANTABLE OR ATTACHED PLASTERER FOREMAN: No RADIOLOGY DEPARTMENT: General X-ray: Exam(s) Completed: Lower Extremity X-Ray(s): Knee, AP / Lat / Merchant Left and Wt. Bearing PERIPHERAL IV DATA: Not applicable SIGNED BY: Ruby Sarah November 23, 2024 9:15 AM [facility] 09-16-2024 Telephone encounter Note Patient informed of results. States she does take vitamin d3 1000 units daily but missed it the week of her blood work due to being sick. Advised not to take daily while taking weekly then when done with the 8 weeks to increase to 2000 units daily. Paula Galeas MA [facility] 09-16-2024 Miscellaneous Notes Patient informed of results. States she does take vitamin d3 1000 units daily but missed it the week of her blood work due to being sick. Advised not to take daily while taking weekly then when done with the 8 weeks to increase to 2000 units daily. Paula Galeas MA Left message requesting patient call office back for results. Paula Galeas MA Left message requesting patient call office back, adRise message also sent with all information. Paula Galeas MA ----- Message from Moises Malcolm APRN.HUMAN MACHINE INTERFACE ENGINEER sent at 09/11/2024 6:06 PM EST ----- Inquire if she is taking a daily otc vit d?. Her vit d is low and it has been.. I am sending in a rx for 8 wks of prescription for vit D that she takes once weekly. When she has completed this. Please instruct her she must belt picker otc vit D and take this daily always. If she is not taking anything daily. When she has completed her once weekly rx I want her to start 2000 international unit(s) daily. Tsh is wnl Cbc stable and improved. From last year. HGb and HCT remains slightly below normal Lipids look good Cmp- her alk phos is stable, kidneys slightly strained. Slight increase in creatinine which she has had in the past. Avoid otc pain medications, no nsaids. documented in this encounter [facility] 09-16-2024 Telephone encounter Note Left message requesting patient call office back for results. Paula Galeas MA [facility] 09-13-2024 Telephone encounter Note Left message requesting patient call office back, ValenTxt message also sent with all information. Paula Galeas MA [facility] 09-13-2024 Telephone encounter Note ----- Message from Moises Malcolm APRN.HUMAN MACHINE INTERFACE ENGINEER sent at 09/11/2024 6:06 PM [facility] ----- Inquire if she is taking a daily otc vit d?. Her vit d is low and it has been.. I am sending in a rx for 8 wks of prescription for vit D that she takes once weekly. When she has completed this. Please instruct her she must belt picker otc vit D and take this daily always. If she is not taking anything daily. When she has completed her once weekly rx I want her to start 2000 international unit(s) daily. Tsh is wnl Cbc stable and improved. From last year. HGb and HCT remains slightly below normal Lipids look good Cmp- her alk phos is stable, kidneys slightly strained. Slight increase in creatinine which she has had in the past. Avoid otc pain medications, no nsaids. [facility] 09-10-2024 Note HNO ID: [id number] Author: CATIE STEVENSON MD Service: ? Author Type: Physician Type: Progress Notes Filed: 09/10/2024 08:43 Note Text: Patient presents with: Eye Problem: R eye matted shut, swelling x 2 days Rhinitis: Runny nose, headache, cough, causing urination x 4 days No improvement HPI: Feeling sick for 1 to 2 weeks. Seen here 09/07/24 with viral URI symptoms. She returns because she is still sick and could not go the the other clinic where she normally gets colace and a zpak for my upper respiratory infection. Positive symptoms: Cough, Sinus pressure, Nasal Congestion, Rhinorrhea, urinary stress incontinence, resolved Diarrhea, watery right eye Negative symptoms: Shortness of breath, Fever, Vomiting, OTC: Cold Medicine with honey Denies history of COPD. MEDICATIONS: Current Outpatient Medications Medication Sig dextromethorphan-guaiFENesin (MUCINEX DM) 30-600 mg per tablet Take 1 tablet by mouth two times a day. carvedilol (COREG) 12.5 mg tablet Take 1 tablet by mouth two times a day with meals. meclizine (ANTIVERT) 25 mg tab Take 1 tablet by mouth three times a day as needed. ramelteon (ROZEREM) 8 mg tablet Take 1 tablet by mouth daily at bedtime. oxybutynin XL (DITROPAN XL) 5 mg 24 hr tablet Take 1 tablet by mouth once daily. amLODIPine (NORVASC) 10 mg tablet Take 1 tablet by mouth once daily. gabapentin (NEURONTIN) 800 mg tablet Take 1 tablet by mouth three times a day for 180 days. acetaminophen (TYLENOL) 500 mg tablet Take 2 tablets by mouth every 8 hours as needed for pain. ascorbic acid, vitamin C, (VITAMIN C) 500 mg tablet Take 1 tablet by mouth two times a day with meals for 27 doses. aspirin, enteric coated (ASPIRIN, ENTERIC COATED) 81 mg EC tablet Take 1 tablet by mouth two times a day for 28 days. omeprazole (PRILOSEC) 40 mg capsule Take 1 capsule by mouth once daily. ergocalciferol 50,000 unit capsule (VITAMIN D2, DRISDOL) Take 1 capsule by mouth one time a week. albuterol HFA (PROAIR HFA) 90 mcg/actuation inhaler Inhale 1 Puff as instructed every 4 hours as needed for wheezing/shortness of breath. ferrous sulfate 325 mg (65 mg iron) tablet Take 325 mg by mouth daily with breakfast. CPAP (Patient not taking: Reported on 04/19/2024) No current facility-administered medications for this visit. ALLERGIES: ALLERGIES Allergen Reactions Cats Swelling Latex Rash Lisinopril Swelling Tongue swells up VITALS: BP 125/83 Pulse 72 Temp 36.1 ?C (97 ?F) Resp 22 Wt 101 kg (222 lb 10.6 oz) SpO2 99% BMI 40.73 kg/m? PHYSICAL EXAM: GEN: mildly ill appearing HEENT: PERRL, EOMI, left conjunctiva clear, watery discharge from right eye with trace injection and trace periocular erythema Ears: canals clear. TMs without erythema, bulge, or effusion Sinuses: non-tender frontal sinus, non-tender maxillary sinuses Throat: moist mucous membranes, mild erythema, no exudate Neck: supple, no thyromegaly, no lymphadenopathy HEART: regular rate, regular rhythm, no murmurs LUNGS: clear to auscultation, no wheezes or crackles, no increased WOB ASSESSMENT/PLAN: 1. Sinobronchitis - ICD9: 473.9, 490, ICD10: J32.9, J40 Inconsistent historian, but probably has had sinus symptoms for over 1 week. Negative COVID, flu, RSV here 3 days ago. Treat for secondary bacterial sinusitis. Zpak is not recommended first or second line for sinus infections. - DOXYCYCLINE MONOHYDRATE 100 MG CAPSULE - BENZONATATE 100 MG CAPSULE Provided work note for yesterday. Catie Stevenson MD [facility] 09-10-2024 History of Present illness Narrative Patient presents with: Eye Problem: R eye matted shut, swelling x 2 days Rhinitis: Runny nose, headache, cough, causing urination x 4 days No improvement HPI: Feeling sick for 1 to 2 weeks. Seen here 09/07/24 with viral URI symptoms. She returns because she is still sick and could not go the the other clinic where she normally gets colace and a zpak for my upper respiratory infection. Positive symptoms: Cough, Sinus pressure, Nasal Congestion, Rhinorrhea, urinary stress incontinence, resolved Diarrhea, watery right eye Negative symptoms: Shortness of breath, Fever, Vomiting, OTC: Cold Medicine with honey Denies history of COPD. MEDICATIONS: Current Outpatient Medications Medication Sig dextromethorphan-guaiFENesin (MUCINEX DM) 30-600 mg per tablet Take 1 tablet by mouth two times a day. carvedilol (COREG) 12.5 mg tablet Take 1 tablet by mouth two times a day with meals. meclizine (ANTIVERT) 25 mg tab Take 1 tablet by mouth three times a day as needed. ramelteon (ROZEREM) 8 mg tablet Take 1 tablet by mouth daily at bedtime. oxybutynin XL (DITROPAN XL) 5 mg 24 hr tablet Take 1 tablet by mouth once daily. amLODIPine (NORVASC) 10 mg tablet Take 1 tablet by mouth once daily. gabapentin (NEURONTIN) 800 mg tablet Take 1 tablet by mouth three times a day for 180 days. acetaminophen (TYLENOL) 500 mg tablet Take 2 tablets by mouth every 8 hours as needed for pain. ascorbic acid, vitamin C, (VITAMIN C) 500 mg tablet Take 1 tablet by mouth two times a day with meals for 27 doses. aspirin, enteric coated (ASPIRIN, ENTERIC COATED) 81 mg EC tablet Take 1 tablet by mouth two times a day for 28 days. omeprazole (PRILOSEC) 40 mg capsule Take 1 capsule by mouth once daily. ergocalciferol 50,000 unit capsule (VITAMIN D2, DRISDOL) Take 1 capsule by mouth one time a week. albuterol HFA (PROAIR HFA) 90 mcg/actuation inhaler Inhale 1 Puff as instructed every 4 hours as needed for wheezing/shortness of breath. ferrous sulfate 325 mg (65 mg iron) tablet Take 325 mg by mouth daily with breakfast. CPAP (Patient not taking: Reported on 04/19/2024) No current facility-administered medications for this visit. ALLERGIES: ALLERGIES Allergen Reactions Cats Swelling Latex Rash Lisinopril Swelling Tongue swells up VITALS: BP 125/83 Pulse 72 Temp 36.1 C (97 F) Resp 22 Wt 101 kg (222 lb 10.6 oz) SpO2 99% BMI 40.73 kg/m PHYSICAL EXAM: GEN: mildly ill appearing HEENT: PERRL, EOMI, left conjunctiva clear, watery discharge from right eye with trace injection and trace periocular erythema Ears: canals clear. TMs without erythema, bulge, or effusion Sinuses: non-tender frontal sinus, non-tender maxillary sinuses Throat: moist mucous membranes, mild erythema, no exudate Neck: supple, no thyromegaly, no lymphadenopathy HEART: regular rate, regular rhythm, no murmurs LUNGS: clear to auscultation, no wheezes or crackles, no increased WOB ASSESSMENT/PLAN: 1. Sinobronchitis - ICD9: 473.9, 490, ICD10: J32.9, J40 Inconsistent historian, but probably has had sinus symptoms for over 1 week. Negative COVID, flu, RSV here 3 days ago. Treat for secondary bacterial sinusitis. Zpak is not recommended first or second line for sinus infections. - DOXYCYCLINE MONOHYDRATE 100 MG CAPSULE - BENZONATATE 100 MG CAPSULE Provided work note for yesterday. Catie Stevenson MD documented in this encounter [facility] 09-08-2024 Miscellaneous Notes Pt returned the call and notified. Left message for patient to return call. Solange Tejada MA ----- Message from Catie Stevenson MD sent at 09/07/2024 7:48 PM EST ----- Negative COVID, flu, and RSV. documented in this encounter [facility] 09-08-2024 Telephone encounter Note Pt returned the call and notified. [facility] 09-07-2024 Telephone encounter Note Left message for patient to return call. Solange Tejada MA [facility] 09-07-2024 Telephone encounter Note ----- Message from Catie Stevenson MD sent at 09/07/2024 7:48 PM EST ----- Negative COVID, flu, and RSV. [facility] 09-07-2024 Note SARS-COV-2 (AGENT OF COVID-19) RNA: Not detected INFLUENZA A RNA: Not detected INFLUENZA B RNA: Not detected RESPIRATORY SYNCYTIAL VIRUS (RSV) RNA: Not detected [facility] Comment on above: Performed By: #### [id number] ####[facility] [id number] [address] [place] 09-07-2024 Note HNO ID: [id number] Author: CATIE STEVENSON MD Service: ? Author Type: Physician Type: Progress Notes Filed: 09/07/2024 09:40 Note Text: Patient presents with: Cough: Cough, runny nose,m ST, BASS and diarrhea x 11 days HPI: Feeling sick for 1 1/2 weeks. Evaluated by PCP for vertigo 8 days ago and admits she was not sick until after then. She says she was treated here last month for something similar and the antibiotic did nothing (treated by me 07/07/24 with augmentin for 1 week URI with possible secondary bacterial sinusitis). She was sent home from work for vomiting today. She finds it difficult to work with her nose running. Positive symptoms: Cough, Sore throat, Nasal Congestion, Rhinorrhea, Headache, Diarrhea, last night had Shortness of breath/Fever/Chills, Negative symptoms: blood in emesis or stool, OTC: Cold Medicine, Ibuprofen, Tylenol. She cannot do nose sprays. PAST MEDICAL HISTORY Diagnosis Date Active asthma Anxiety Arthritis of knee, left 10/21/2012 Brain aneurysm Diabetes mellitus type 2, uncomplicated ([facility]) Diabetes mellitus type 2, uncomplicated ([facility]) 10/20/2018 Fibroids Hyperlipidemia LDL goal < 100 02/25/2013 Hypertension Morbidly obese ([facility]) 10/20/2018 RUTH (obstructive sleep apnea) 10/20/2018 Peripheral neuropathy 10/20/2018 Pulmonary embolism ([facility]) 12/13/2012 Right shoulder injury 10/21/2012 Stroke ([facility]) MEDICATIONS: Current Outpatient Medications Medication Sig carvedilol (COREG) 12.5 mg tablet Take 1 tablet by mouth two times a day with meals. meclizine (ANTIVERT) 25 mg tab Take 1 tablet by mouth three times a day as needed. ramelteon (ROZEREM) 8 mg tablet Take 1 tablet by mouth daily at bedtime. oxybutynin XL (DITROPAN XL) 5 mg 24 hr tablet Take 1 tablet by mouth once daily. amLODIPine (NORVASC) 10 mg tablet Take 1 tablet by mouth once daily. gabapentin (NEURONTIN) 800 mg tablet Take 1 tablet by mouth three times a day for 180 days. acetaminophen (TYLENOL) 500 mg tablet Take 2 tablets by mouth every 8 hours as needed for pain. ascorbic acid, vitamin C, (VITAMIN C) 500 mg tablet Take 1 tablet by mouth two times a day with meals for 27 doses. aspirin, enteric coated (ASPIRIN, ENTERIC COATED) 81 mg EC tablet Take 1 tablet by mouth two times a day for 28 days. omeprazole (PRILOSEC) 40 mg capsule Take 1 capsule by mouth once daily. ergocalciferol 50,000 unit capsule (VITAMIN D2, DRISDOL) Take 1 capsule by mouth one time a week. albuterol HFA (PROAIR HFA) 90 mcg/actuation inhaler Inhale 1 Puff as instructed every 4 hours as needed for wheezing/shortness of breath. ferrous sulfate 325 mg (65 mg iron) tablet Take 325 mg by mouth daily with breakfast. CPAP (Patient not taking: Reported on 04/19/2024) No current facility-administered medications for this visit. ALLERGIES: ALLERGIES Allergen Reactions Cats Swelling Latex Rash Lisinopril Swelling Tongue swells up VITALS: BP 132/82 Pulse 69 Temp 36.2 ?C (97.2 ?F) (Tympanic) Resp 18 Wt 100.9 kg (222 lb 7.1 oz) SpO2 97% BMI 40.69 kg/m? PHYSICAL EXAM: GEN: mildly ill appearing HEENT: PERRL, EOMI, conjunctiva clear Ears: canals clear. TMs without erythema, bulge, or effusion Sinuses: non-tender frontal sinus, non-tender maxillary sinuses Throat: moist mucous membranes, mild erythema, no exudate Neck: supple, no thyromegaly, no lymphadenopathy HEART: regular rate, regular rhythm, no murmurs LUNGS: clear to auscultation, no wheezes or crackles, no increased WOB ABD: Soft, non-distended, non-tender, no masses ASSESSMENT/PLAN: 1. URI, acute - ICD9: 465.9, ICD10: J06.9 - suspect viral URI: influenza A is prevalent in the community, differential includes COVID-19. History is inconsistent, but she admits to worsening a few days ago. - Discussed supportive care treatment with rest, cold medicine, and analgesia. Safety of symptom medication choices are limited by health conditions and medication interactions (hypertension, anticholinergics, age, nasal application discomfort). - MUCINEX DM 30 MG-600 MG TABLET,EXTENDED RELEASE 12 HR - COVID AND INFLUENZA A/B AND RSV PCR, ROUTINE - probably outside the therapeutic window for antiviral medication. - Red flags to seek further treatment include chest pain, shortness of breath, and lethargy; in the ER if severe. Catie Stevenson MD [facility] 09-07-2024 History of Present illness Narrative Patient presents with: Cough: Cough, runny nose,m ST, BASS and diarrhea x 11 days HPI: Feeling sick for 1 1/2 weeks. Evaluated by PCP for vertigo 8 days ago and admits she was not sick until after then. She says she was treated here last month for something similar and the antibiotic did nothing (treated by me 07/07/24 with augmentin for 1 week URI with possible secondary bacterial sinusitis). She was sent home from work for vomiting today. She finds it difficult to work with her nose running. Positive symptoms: Cough, Sore throat, Nasal Congestion, Rhinorrhea, Headache, Diarrhea, last night had Shortness of breath/Fever/Chills, Negative symptoms: blood in emesis or stool, OTC: Cold Medicine, Ibuprofen, Tylenol. She cannot do nose sprays. PAST MEDICAL HISTORY Diagnosis Date Active asthma Anxiety Arthritis of knee, left 10/21/2012 Brain aneurysm Diabetes mellitus type 2, uncomplicated ([facility]) Diabetes mellitus type 2, uncomplicated ([facility]) 10/20/2018 Fibroids Hyperlipidemia LDL goal < 100 02/25/2013 Hypertension Morbidly obese ([facility]) 10/20/2018 RUTH (obstructive sleep apnea) 10/20/2018 Peripheral neuropathy 10/20/2018 Pulmonary embolism ([facility]) 12/13/2012 Right shoulder injury 10/21/2012 Stroke ([facility]) MEDICATIONS: Current Outpatient Medications Medication Sig carvedilol (COREG) 12.5 mg tablet Take 1 tablet by mouth two times a day with meals. meclizine (ANTIVERT) 25 mg tab Take 1 tablet by mouth three times a day as needed. ramelteon (ROZEREM) 8 mg tablet Take 1 tablet by mouth daily at bedtime. oxybutynin XL (DITROPAN XL) 5 mg 24 hr tablet Take 1 tablet by mouth once daily. amLODIPine (NORVASC) 10 mg tablet Take 1 tablet by mouth once daily. gabapentin (NEURONTIN) 800 mg tablet Take 1 tablet by mouth three times a day for 180 days. acetaminophen (TYLENOL) 500 mg tablet Take 2 tablets by mouth every 8 hours as needed for pain. ascorbic acid, vitamin C, (VITAMIN C) 500 mg tablet Take 1 tablet by mouth two times a day with meals for 27 doses. aspirin, enteric coated (ASPIRIN, ENTERIC COATED) 81 mg EC tablet Take 1 tablet by mouth two times a day for 28 days. omeprazole (PRILOSEC) 40 mg capsule Take 1 capsule by mouth once daily. ergocalciferol 50,000 unit capsule (VITAMIN D2, DRISDOL) Take 1 capsule by mouth one time a week. albuterol HFA (PROAIR HFA) 90 mcg/actuation inhaler Inhale 1 Puff as instructed every 4 hours as needed for wheezing/shortness of breath. ferrous sulfate 325 mg (65 mg iron) tablet Take 325 mg by mouth daily with breakfast. CPAP (Patient not taking: Reported on 04/19/2024) No current facility-administered medications for this visit. ALLERGIES: ALLERGIES Allergen Reactions Cats Swelling Latex Rash Lisinopril Swelling Tongue swells up VITALS: BP 132/82 Pulse 69 Temp 36.2 C (97.2 F) (Tympanic) Resp 18 Wt 100.9 kg (222 lb 7.1 oz) SpO2 97% BMI 40.69 kg/m PHYSICAL EXAM: GEN: mildly ill appearing HEENT: PERRL, EOMI, conjunctiva clear Ears: canals clear. TMs without erythema, bulge, or effusion Sinuses: non-tender frontal sinus, non-tender maxillary sinuses Throat: moist mucous membranes, mild erythema, no exudate Neck: supple, no thyromegaly, no lymphadenopathy HEART: regular rate, regular rhythm, no murmurs LUNGS: clear to auscultation, no wheezes or crackles, no increased WOB ABD: Soft, non-distended, non-tender, no masses ASSESSMENT/PLAN: 1. URI, acute - ICD9: 465.9, ICD10: J06.9 - suspect viral URI: influenza A is prevalent in the community, differential includes COVID-19. History is inconsistent, but she admits to worsening a few days ago. - Discussed supportive care treatment with rest, cold medicine, and analgesia. Safety of symptom medication choices are limited by health conditions and medication interactions (hypertension, anticholinergics, age, nasal application discomfort). - MUCINEX DM 30 MG-600 MG TABLET,EXTENDED RELEASE 12 HR - COVID & INFLUENZA A/B & RSV PCR, ROUTINE - probably outside the therapeutic window for antiviral medication. - Red flags to seek further treatment include chest pain, shortness of breath, and lethargy; in the ER if severe. Catie Stevenson MD documented in this encounter [facility] 09-02-2024 Note HNO ID: [id number] Author: MAKAYLA BRADLEY MD Service: ? Author Type: Physician Type: Progress Notes Filed: 09/30/2024 22:54 Note Text: DR. BRADLEY- POST-OP KNEE Post-Op F/U Office Visit Caden Llamas presents today for a 7 months status post Left TKA. Post-operative recovery was uneventful. Patient's rating of condition: improving Comments: Patient reports having fallen about a month ago and experienced some increase in pain but this has improved Does the Pt. still experience pain? PAIN EVALUATION 09/02/2024 0913 Pain Level: 6 Pain Location: Knee-Left Description: Aching;Cramping;Sore;Throbbing Duration Amount of Time: 5 Duration Units: Hours Frequency: Continuous Functional difficulties: Stair climbing Physical Therapy: Completed course of therapy Pain Medication: Non-narcotic Ambulating without assistance. Medications and Allergies reviewed and verified. EXAM: GEN: AANDO x3, NAD SKIN:Appropriate postop appearance Incision intact Incision well healed LeftKnee: ROM: Flexion/Extension:5 degrees to 110 degrees Pain with ROM:No Mal-alignment: No Effusion: None Tender to palpation of the medial joint line(s). Stability:Anterior/Posterior- Yes, stable and Varus/Valgus- Yes, stable Quad strength: normal HIP: range of motion no loss ROM NV: intact and Olayinka's negative IMAGING: Xrays: No x-rays today IMPRESSION/PLAN: 69 year old female s/p Left TKA Slow post-operative recovery. Some of this may be related to her previously reported fall. She does not appear to have sustained any injuries that would compromise the improvement of her knee. I have recommended that she continue her independent range of motion/strengthening exercises. Plan: 1. Continue weightbearing as tolerated 2. Continue range of motion/strengthening exercises 3. Follow-up for repeat clinical evaluation. Makayla Bradley MD Electronic Signature [facility] 09-02-2024 History of Present illness Narrative Images from the original note were not included. DR. BRADLEY- POST-OP KNEE Post-Op F/U Office Visit Caden Llamas presents today for a 7 months status post Left TKA. Post-operative recovery was uneventful. Patient's rating of condition: improving Comments: Patient reports having fallen about a month ago and experienced some increase in pain but this has improved Does the Pt. still experience pain? PAIN EVALUATION 09/02/2024 0913 Pain Level: 6 Pain Location: Knee-Left Description: Aching;Cramping;Sore;Throbbing Duration Amount of Time: 5 Duration Units: Hours Frequency: Continuous Functional difficulties: Stair climbing Physical Therapy: Completed course of therapy Pain Medication: Non-narcotic Ambulating without assistance. Medications and Allergies reviewed and verified. EXAM: GEN: A&O x3, NAD SKIN:Appropriate postop appearance Incision intact Incision well healed LeftKnee: ROM: Flexion/Extension:5 degrees to 110 degrees Pain with ROM:No Mal-alignment: No Effusion: None Tender to palpation of the medial joint line(s). Stability:Anterior/Posterior- Yes, stable and Varus/Valgus- Yes, stable Quad strength: normal HIP: range of motion no loss ROM NV: intact and Olayinka's negative IMAGING: Xrays: No x-rays today IMPRESSION/PLAN: 69 year old female s/p Left TKA Slow post-operative recovery. Some of this may be related to her previously reported fall. She does not appear to have sustained any injuries that would compromise the improvement of her knee. I have recommended that she continue her independent range of motion/strengthening exercises. Plan: 1. Continue weightbearing as tolerated 2. Continue range of motion/strengthening exercises 3. Follow-up for repeat clinical evaluation. Makayla Bradley MD Electronic Signature documented in this encounter [facility] 09-01-2024 Telephone encounter Note Prior auth from Elma bailey was completed. Awaiting approval or denial form insurance. Joanne Jaimes LPN [facility] 09-01-2024 Miscellaneous Notes Prior auth from Ramelteon 8 mg was completed. Awaiting approval or denial form insurance. Joanne Jaimes LPN documented in this encounter [facility] 08-30-2024 Note HNO ID: [id number] Author: MOISES MALCOLM APRN.HUMAN MACHINE INTERFACE ENGINEER Service: ? Author Type: Nurse Practitioner Type: Progress Notes Filed: 08/30/2024 14:21 Note Text: This note was created using [employer]. Subjective Caden Llamas is a 69 year old female here today for acute visit for complaints of vertigo. She reports episode started about 2-3 wks ago. Reports hx of vertigo. Last episode ~2 yrs ago. Her previous PCP gave her meclizine which was helpful. She reports she gets off balance. States when she is up walking she will fall. She reports this is same symptoms she had 2 yrs ago. States she did see neurologist in the past and they dx her with vertigo. She reports she knows its vertigo. She reports she has fallen several times due to dizziness. She started pain in left knee where she had a replacement in 01/2024. States she has an appt with her ortho this Thursday. States she has hard time walking on it She reports having increase frequency of urination at night. States she is up every hour urinating. She reports cutting back on her caffeine and water intake. She has had this for years. States she has seen urologist in the past and they wanted her to cath herself at night which she states she was not going to do. Denies fever, chills, flank or abd pain, dysuria or blood in urine. Only occurs at night. Denies symptoms during day. Reports does not drink caffeine and limits beverages after 2 pm. ALLERGIES Allergen Reactions Cats Swelling Latex Rash Lisinopril Swelling Tongue swells up Current Outpatient Medications Medication Sig Dispense Refill ramelteon (ROZEREM) 8 mg tablet Take 1 tablet by mouth daily at bedtime. 30 tablet 5 amLODIPine (NORVASC) 10 mg tablet Take 1 tablet by mouth once daily. 90 tablet 1 gabapentin (NEURONTIN) 800 mg tablet Take 1 tablet by mouth three times a day for 180 days. 270 tablet 1 acetaminophen (TYLENOL) 500 mg tablet Take 2 tablets by mouth every 8 hours as needed for pain. 90 tablet 0 ascorbic acid, vitamin C, (VITAMIN C) 500 mg tablet Take 1 tablet by mouth two times a day with meals for 27 doses. 27 tablet 0 aspirin, enteric coated (ASPIRIN, ENTERIC COATED) 81 mg EC tablet Take 1 tablet by mouth two times a day for 28 days. 56 tablet 0 carvedilol (COREG) 12.5 mg tablet 1 tablet two times a day with meals. ergocalciferol 50,000 unit capsule (VITAMIN D2, DRISDOL) Take 1 capsule by mouth one time a week. 4 capsule 1 meclizine (ANTIVERT) 25 mg tab Take 25 mg by mouth once daily. albuterol HFA (PROAIR HFA) 90 mcg/actuation inhaler Inhale 1 Puff as instructed every 4 hours as needed for wheezing/shortness of breath. ferrous sulfate 325 mg (65 mg iron) tablet Take 325 mg by mouth daily with breakfast. omeprazole (PRILOSEC) 40 mg capsule Take 1 capsule by mouth once daily. (Patient not taking: Reported on 08/30/2024) 90 capsule 1 CPAP (Patient not taking: Reported on 04/19/2024) No current facility-administered medications for this visit. ACTIVE PROBLEM LIST Climacteric Hypertension Hyperlipidemia With Target Low Density Lipoprotein (Ldl) Cholesterol Less Than 100 Mg/Dl Arthritis of Right Knee Urinary Incontinence Lower Urinary Tract Symptoms (Luts) H/O Brain Aneurysm H/O Stroke (HCC) Asthma Peripheral Neuropathy Weiss (Dyspnea On Exertion) Chest Pain of Uncertain Etiology Stage 2 Chronic Kidney Disease Anemia Anxiety Morbidly Obese (Hcc) Ruth (Obstructive Sleep Apnea) S/P Total Knee Replacement Post-Traumatic Osteoarthritis of Right Shoulder Rotator Cuff Syndrome of Left Shoulder Atrial Fibrillation (Hcc) Obesity, Class III, BMI >= 40 S/P Total Knee Arthroplasty, Left PAST MEDICAL HISTORY Diagnosis Date Active asthma Anxiety Arthritis of knee, left 10/21/2012 Brain aneurysm Diabetes mellitus type 2, uncomplicated (HCC) Diabetes mellitus type 2, uncomplicated (HCC) 10/20/2018 Fibroids Hyperlipidemia LDL goal < 100 02/25/2013 Hypertension Morbidly obese (HCC) 10/20/2018 RUTH (obstructive sleep apnea) 10/20/2018 Peripheral neuropathy 10/20/2018 Pulmonary embolism (HCC) 12/13/2012 Right shoulder injury 10/21/2012 Stroke (HCC) PAST SURGICAL HISTORY Procedure Laterality Date APPENDECTOMY ARTHRP KNE CONDYLEANDPLATU MEDIALANDLAT COMPARTMENTS Right 10/27/2018 Knee replacement, total BRAIN SURGERY HX 02/2013 brain aneurysm coiled CARDIAC CATH 2019 CHOLECYSTECTOMY Cholecystectomy SHOULDER SURGERY HX Right TOTAL KNEE REPLACEMENT Left 02/02/2024 VAGINAL HYSTERECTOMY UTERUS 250 GM/< Hysterectomy, vaginal, Fibroids Social History Tobacco Use Smoking status: Never Smokeless tobacco: Never Tobacco comments: Smoked as a teenager Vaping Use Vaping status: Never Used Substance Use Topics Alcohol use: No Drug use: No Family History Problem Relation Age of Onset Cancer Mother Liver Diabetes Mother Hypertension Mother Lipids Mother Heart Father [place] [facility] (more content not included)... [facility] 08-30-2024 History of Present illness Narrative This note was created using [employer]. Subjective Caden Llamas is a 69 year old female here today for acute visit for complaints of vertigo. She reports episode started about 2-3 wks ago. Reports hx of vertigo. Last episode ~2 yrs ago. Her previous PCP gave her meclizine which was helpful. She reports she gets off balance. States when she is up walking she will fall. She reports this is same symptoms she had 2 yrs ago. States she did see neurologist in the past and they dx her with vertigo. She reports she knows its vertigo. She reports she has fallen several times due to dizziness. She started pain in left knee where she had a replacement in 01/2024. States she has an appt with her ortho this Thursday. States she has hard time walking on it She reports having increase frequency of urination at night. States she is up every hour urinating. She reports cutting back on her caffeine and water intake. She has had this for years. States she has seen urologist in the past and they wanted her to cath herself at night which she states she was not going to do. Denies fever, chills, flank or abd pain, dysuria or blood in urine. Only occurs at night. Denies symptoms during day. Reports does not drink caffeine and limits beverages after 2 pm. ALLERGIES Allergen Reactions Cats Swelling Latex Rash Lisinopril Swelling Tongue swells up Current Outpatient Medications Medication Sig Dispense Refill ramelteon (ROZEREM) 8 mg tablet Take 1 tablet by mouth daily at bedtime. 30 tablet 5 amLODIPine (NORVASC) 10 mg tablet Take 1 tablet by mouth once daily. 90 tablet 1 gabapentin (NEURONTIN) 800 mg tablet Take 1 tablet by mouth three times a day for 180 days. 270 tablet 1 acetaminophen (TYLENOL) 500 mg tablet Take 2 tablets by mouth every 8 hours as needed for pain. 90 tablet 0 ascorbic acid, vitamin C, (VITAMIN C) 500 mg tablet Take 1 tablet by mouth two times a day with meals for 27 doses. 27 tablet 0 aspirin, enteric coated (ASPIRIN, ENTERIC COATED) 81 mg EC tablet Take 1 tablet by mouth two times a day for 28 days. 56 tablet 0 carvedilol (COREG) 12.5 mg tablet 1 tablet two times a day with meals. ergocalciferol 50,000 unit capsule (VITAMIN D2, DRISDOL) Take 1 capsule by mouth one time a week. 4 capsule 1 meclizine (ANTIVERT) 25 mg tab Take 25 mg by mouth once daily. albuterol HFA (PROAIR HFA) 90 mcg/actuation inhaler Inhale 1 Puff as instructed every 4 hours as needed for wheezing/shortness of breath. ferrous sulfate 325 mg (65 mg iron) tablet Take 325 mg by mouth daily with breakfast. omeprazole (PRILOSEC) 40 mg capsule Take 1 capsule by mouth once daily. (Patient not taking: Reported on 08/30/2024) 90 capsule 1 CPAP (Patient not taking: Reported on 04/19/2024) No current facility-administered medications for this visit. ACTIVE PROBLEM LIST Climacteric Hypertension Hyperlipidemia With Target Low Density Lipoprotein (Ldl) Cholesterol Less Than 100 Mg/Dl Arthritis of Right Knee Urinary Incontinence Lower Urinary Tract Symptoms (Luts) H/O Brain Aneurysm H/O Stroke (HCC) Asthma Peripheral Neuropathy Weiss (Dyspnea On Exertion) Chest Pain of Uncertain Etiology Stage 2 Chronic Kidney Disease Anemia Anxiety Morbidly Obese (Hcc) Ruth (Obstructive Sleep Apnea) S/P Total Knee Replacement Post-Traumatic Osteoarthritis of Right Shoulder Rotator Cuff Syndrome of Left Shoulder Atrial Fibrillation (Hcc) Obesity, Class III, BMI >= 40 S/P Total Knee Arthroplasty, Left PAST MEDICAL HISTORY Diagnosis Date Active asthma Anxiety Arthritis of knee, left 10/21/2012 Brain aneurysm Diabetes mellitus type 2, uncomplicated (HCC) Diabetes mellitus type 2, uncomplicated (HCC) 10/20/2018 Fibroids Hyperlipidemia LDL goal < 100 02/25/2013 Hypertension Morbidly obese (HCC) 10/20/2018 RUTH (obstructive sleep apnea) 10/20/2018 Peripheral neuropathy 10/20/2018 Pulmonary embolism (HCC) 12/13/2012 Right shoulder injury 10/21/2012 Stroke ([facility]) PAST SURGICAL HISTORY Procedure Laterality Date APPENDECTOMY ARTHRP KNE CONDYLE&PLATU MEDIAL&LAT COMPARTMENTS Right 10/27/2018 Knee replacement, total BRAIN SURGERY HX 02/2013 brain aneurysm coiled CARDIAC CATH 2019 CHOLECYSTECTOMY Cholecystectomy SHOULDER SURGERY HX Right TOTAL KNEE REPLACEMENT Left 02/02/2024 VAGINAL HYSTERECTOMY UTERUS 250 GM/< Hysterectomy, vaginal, Fibroids Social History Tobacco Use Smoking status: Never Smokeless tobacco: Never Tobacco comments: Smoked as a teenager Vaping Use Vaping status: Never Used Substance Use Topics Alcohol use: No Drug use: No Family History Problem Relation Age of Onset Cancer Mother Liver Diabetes Mother Hypertension Mother Lipids Mother Heart Father [place] [facility] Sister Hypertension Sister Diabetes Sister Review of Systems Constitutional: Negative for chills, diaphoresis, fatigue and fever. Respiratory: Negative for cough, shortness of breath and wheezing. Cardiovascular: Negative for chest pain, palpitations and leg swelling. Gastrointestinal: Negative for constipation, diarrhea and nausea. Genitourinary: Positive for frequency and urgency. Negative for difficulty urinating, dysuria and pelvic pain. At night see HPI Musculoskeletal: Positive for arthralgias. Left knee pain Neurological: Positive for light-headedness. Negative for dizziness, tremors, seizures, facial asymmetry, speech difficulty, weakness, numbness and headaches. Objective 08/30/24 1326 BP: 122/76 Pulse: 78 Resp: 18 SpO2: 100% Weight: 101.1 kg (222 lb 12.8 oz) Height: 157.5 cm (5' 2) Physical Exam Vitals and nursing note reviewed. Constitutional: General: She is not in acute distress. Appearance: She is obese. She is not ill-appearing. HENT: Head: Normocephalic and atraumatic. Cardiovascular: Rate and Rhythm: Normal rate and regular rhythm. Pulses: Normal pulses. Heart sounds: Normal heart sounds, S1 normal and S2 normal. No murmur heard. Pulmonary: Effort: Pulmonary effort is normal. No respiratory distress. Breath sounds: Normal breath sounds. No decreased breath sounds, wheezing, rhonchi or rales. Abdominal: General: Abdomen is flat. Bowel sounds are normal. Palpations: Abdomen is soft. Musculoskeletal: Right lower leg: No edema. Left lower leg: No edema. Skin: General: Skin is warm and dry. Neurological: General: No focal deficit present. Mental Status: She is alert and oriented to person, place, and time. Cranial Nerves: Cranial nerves 2-12 are intact. No cranial nerve deficit. Sensory: Sensation is intact. Motor: Motor function is intact. No weakness. Coordination: Coordination is intact. Gait: Gait normal. Psychiatric: Mood and Affect: Mood normal. Behavior: Behavior normal. Thought Content: Thought content normal. Judgment: Judgment normal. ASSESSMENT/PLAN: 1. Dizziness - ICD9: 780.4, ICD10: R42 (primary diagnosis) - Acute on chronic, pt reports hx of vertigo. She reports this is same she had several years ago which included work up with neurologist. States meclizine was effective in the past. States she has old prescription and would like refill - MECLIZINE 25 MG TABLET 2. Insomnia, unspecified type - ICD9: 780.52, ICD10: G47.00 - pt reports rameleteon is effective for sleep. Will continue this - RAMELTEON 8 MG TABLET 3. Urinary incontinence, unspecified type - ICD9: 788.30, ICD10: R32 - Chronic, urine + ketones and protein. She is due for labs. Will trial oxybutynin. Referral to urology, though pt states she is not interested in this since she has seen them in the past and they did not help her. I encouraged her to reconsider. - CONSULT TO UROLOGY - UA DIP, URINE (POC) - BACTERIAL CULTURE, URINE - OXYBUTYNIN CHLORIDE ER 5 MG TABLET,EXTENDED RELEASE 24 HR 4. Hypertension, unspecified type - ICD9: 401.9, ICD10: I10 - Controlled - Continue current medications - Recommend home blood pressure monitoring, to bring results to next visit - Encouraged sodium restriction, DASH or Mediterranean diet - Recommend regular aerobic exercise - Discussed need for and benefit of weight loss. BMI 40.75 kg/(m^2) - Reviewed risks of hypertension and principles of treatment - CARVEDILOL 12.5 MG TABLET - COMPLETE BLOOD COUNT - COMPREHENSIVE METABOLIC PANEL 5. Vitamin D deficiency - ICD9: 268.9, ICD10: E55.9 - VITAMIN D 25 HYDROXY 6. Hyperlipidemia with target low density lipoprotein (LDL) cholesterol less than 100 mg/dL - ICD9: 272.4, ICD10: E78.5 - Control undetermined, due for labs - Counseled on healthy diet and regular exercise - Discussed need for and benefit of weight loss. BMI 40.75 kg/(m^2) - LIPID PANEL BASIC 7. Screening for thyroid disorder - ICD9: V77.0, ICD10: Z13.29 - THYROID STIMULATING HORMONE 8. Encounter for vision screening - ICD9: V72.0, ICD10: Z01.00 - CONSULT TO OPHTHALMOLOGY Moises Malcolm APRN.HUMAN MACHINE INTERFACE ENGINEER documented in this encounter [facility] 08-26-2024 Telephone encounter Note Called and left a message letting patient know we had to cancel their appointment for today (08/26/24) with as he is out sick. Patient can be rescheduled to next available. Sent MyChart. [facility] 08-26-2024 Miscellaneous Notes Called and left a message letting patient know we had to cancel their appointment for today (08/26/24) with as he is out sick. Patient can be rescheduled to next available. Sent MyChart. documented in this encounter [facility] 07-07-2024 Note HNO ID: [id number] Author: CATIE STEVENSON MD Service: ? Author Type: Physician Type: Progress Notes Filed: 07/07/2024 14:02 Note Text: Patient presents with: Sinus Problem: drainage, sore throat x 1 week HPI: Feeling sick for 7 days. Sinus pressure is worsening. Positive symptoms: Sore throat, Sinus pressure, Cough, nocturnal Wheezing, Nasal Congestion, Rhinorrhea, Negative symptoms: Shortness of breath, Fever, OTC: Mucinex MEDICATIONS: Current Outpatient Medications Medication Sig ramelteon (ROZEREM) 8 mg tablet Take 1 tablet by mouth daily at bedtime. amLODIPine (NORVASC) 10 mg tablet Take 1 tablet by mouth once daily. gabapentin (NEURONTIN) 800 mg tablet Take 1 tablet by mouth three times a day for 180 days. acetaminophen (TYLENOL) 500 mg tablet Take 2 tablets by mouth every 8 hours as needed for pain. ascorbic acid, vitamin C, (VITAMIN C) 500 mg tablet Take 1 tablet by mouth two times a day with meals for 27 doses. aspirin, enteric coated (ASPIRIN, ENTERIC COATED) 81 mg EC tablet Take 1 tablet by mouth two times a day for 28 days. omeprazole (PRILOSEC) 40 mg capsule Take 1 capsule by mouth once daily. carvedilol (COREG) 12.5 mg tablet 1 tablet two times a day with meals. (Patient taking differently: Take 12.5 mg by mouth two times a day with meals.) ergocalciferol 50,000 unit capsule (VITAMIN D2, DRISDOL) Take 1 capsule by mouth one time a week. meclizine (ANTIVERT) 25 mg tab Take 25 mg by mouth once daily. albuterol HFA (PROAIR HFA) 90 mcg/actuation inhaler Inhale 1 Puff as instructed every 4 hours as needed for wheezing/shortness of breath. ferrous sulfate 325 mg (65 mg iron) tablet Take 325 mg by mouth daily with breakfast. CPAP (Patient not taking: Reported on 04/19/2024) No current facility-administered medications for this visit. ALLERGIES: ALLERGIES Allergen Reactions Cats Swelling Latex Rash Lisinopril Swelling Tongue swells up VITALS: BP 142/88 Pulse 84 Temp 36.8 ?C (98.3 ?F) Resp 16 Wt 95.3 kg (210 lb 1.6 oz) SpO2 99% BMI 38.43 kg/m? PHYSICAL EXAM: GEN: mildly ill appearing HEENT: PERRL, EOMI, conjunctiva clear Ears: canals clear. TMs without erythema, bulge, or effusion Sinuses: pressure over sinuses Throat: moist mucous membranes, mild erythema, no exudate Neck: supple, no thyromegaly, no lymphadenopathy HEART: regular rate, regular rhythm, no murmurs LUNGS: clear to auscultation, no wheezes or crackles, no increased WOB ASSESSMENT/PLAN: 1. Acute non-recurrent sinusitis, unspecified location - ICD9: 461.9, ICD10: J01.90 (primary diagnosis) 2. Sore throat - ICD9: 462, ICD10: J02.9 - STREP A MOLECULAR (POC) - negative - suspect viral URI. Possible secondary bacterial sinusitis. - Discussed supportive care treatment with rest, cold medicine, and analgesia. - AMOXICILLIN 875 MG-POTASSIUM CLAVULANATE 125 MG TABLET Catie Stevenson MD [facility] 07-07-2024 History of Present illness Narrative Patient presents with: Sinus Problem: drainage, sore throat x 1 week HPI: Feeling sick for 7 days. Sinus pressure is worsening. Positive symptoms: Sore throat, Sinus pressure, Cough, nocturnal Wheezing, Nasal Congestion, Rhinorrhea, Negative symptoms: Shortness of breath, Fever, OTC: Mucinex MEDICATIONS: Current Outpatient Medications Medication Sig ramelteon (ROZEREM) 8 mg tablet Take 1 tablet by mouth daily at bedtime. amLODIPine (NORVASC) 10 mg tablet Take 1 tablet by mouth once daily. gabapentin (NEURONTIN) 800 mg tablet Take 1 tablet by mouth three times a day for 180 days. acetaminophen (TYLENOL) 500 mg tablet Take 2 tablets by mouth every 8 hours as needed for pain. ascorbic acid, vitamin C, (VITAMIN C) 500 mg tablet Take 1 tablet by mouth two times a day with meals for 27 doses. aspirin, enteric coated (ASPIRIN, ENTERIC COATED) 81 mg EC tablet Take 1 tablet by mouth two times a day for 28 days. omeprazole (PRILOSEC) 40 mg capsule Take 1 capsule by mouth once daily. carvedilol (COREG) 12.5 mg tablet 1 tablet two times a day with meals. (Patient taking differently: Take 12.5 mg by mouth two times a day with meals.) ergocalciferol 50,000 unit capsule (VITAMIN D2, DRISDOL) Take 1 capsule by mouth one time a week. meclizine (ANTIVERT) 25 mg tab Take 25 mg by mouth once daily. albuterol HFA (PROAIR HFA) 90 mcg/actuation inhaler Inhale 1 Puff as instructed every 4 hours as needed for wheezing/shortness of breath. ferrous sulfate 325 mg (65 mg iron) tablet Take 325 mg by mouth daily with breakfast. CPAP (Patient not taking: Reported on 04/19/2024) No current facility-administered medications for this visit. ALLERGIES: ALLERGIES Allergen Reactions Cats Swelling Latex Rash Lisinopril Swelling Tongue swells up VITALS: BP 142/88 Pulse 84 Temp 36.8 C (98.3 F) Resp 16 Wt 95.3 kg (210 lb 1.6 oz) SpO2 99% BMI 38.43 kg/m PHYSICAL EXAM: GEN: mildly ill appearing HEENT: PERRL, EOMI, conjunctiva clear Ears: canals clear. TMs without erythema, bulge, or effusion Sinuses: pressure over sinuses Throat: moist mucous membranes, mild erythema, no exudate Neck: supple, no thyromegaly, no lymphadenopathy HEART: regular rate, regular rhythm, no murmurs LUNGS: clear to auscultation, no wheezes or crackles, no increased WOB ASSESSMENT/PLAN: 1. Acute non-recurrent sinusitis, unspecified location - ICD9: 461.9, ICD10: J01.90 (primary diagnosis) 2. Sore throat - ICD9: 462, ICD10: J02.9 - STREP A MOLECULAR (POC) - negative - suspect viral URI. Possible secondary bacterial sinusitis. - Discussed supportive care treatment with rest, cold medicine, and analgesia. - AMOXICILLIN 875 MG-POTASSIUM CLAVULANATE 125 MG TABLET Catie Stevenson MD documented in this encounter [facility] 06-13-2024 Telephone encounter Note Pt requesting refills as follows: Last Office Visit:04/19/2024 Next Office Visit:06/12/2024 Requested Prescriptions Pending Prescriptions Disp Refills ramelteon (ROZEREM) 8 mg tablet 30 tablet 1 Sig: Take 1 tablet by mouth daily at bedtime. Please review and advise. Joanne Jaimes LPN [facility] 06-13-2024 Miscellaneous Notes Pt requesting refills as follows: Last Office Visit:04/19/2024 Next Office Visit:06/12/2024 Requested Prescriptions Pending Prescriptions Disp Refills ramelteon (ROZEREM) 8 mg tablet 30 tablet 1 Sig: Take 1 tablet by mouth daily at bedtime. Please review and advise. Joanne Jaimes LPN documented in this encounter [facility] 06-07-2024 Telephone encounter Note pt requesting refills as follows: Last Office Visit:04/19/2024 Next Office Visit:06/22/2024 Requested Prescriptions Pending Prescriptions Disp Refills amLODIPine (NORVASC) 10 mg tablet 90 tablet 1 Sig: Take 1 tablet by mouth once daily. gabapentin (NEURONTIN) 800 mg tablet 270 tablet 1 Sig: Take 1 tablet by mouth three times a day for 180 days. Please review and advise. Joanne Jaimes LPN [facility] 06-07-2024 Miscellaneous Notes pt requesting refills as follows: Last Office Visit:04/19/2024 Next Office Visit:06/22/2024 Requested Prescriptions Pending Prescriptions Disp Refills amLODIPine (NORVASC) 10 mg tablet 90 tablet 1 Sig: Take 1 tablet by mouth once daily. gabapentin (NEURONTIN) 800 mg tablet 270 tablet 1 Sig: Take 1 tablet by mouth three times a day for 180 days. Please review and advise. Joanne Jaimes LPN documented in this encounter [facility] 05-13-2024 Telephone encounter Note The patient is > 3 months out from left TKA. Opioid refill from our office is not appropriate at this time. Of note, the patient rated pain level 0/10 at most recent office visit last week. [facility] 05-13-2024 Miscellaneous Notes The patient is > 3 months out from left TKA. Opioid refill from our office is not appropriate at this time. Of note, the patient rated pain level 0/10 at most recent office visit last week. Prescription Refill Information The patient has been identified by name and date of : Yes Caregiver verified no other encounters exist for this prescription request: Yes Caregiver confirmed with patient/requestor that no other refills are due, in the near future, with this provider at this time: Yes The last office visit in the department: Does the patient have a future office visit with this provider/department: Yes Requested Prescriptions Pending Prescriptions Disp Refills HYDROcodone-acetaminophen (NORCO) 5-325 mg per tablet 20 tablet 0 Sig: Take 1 tablet by mouth every 8 hours as needed for pain for up to 7 days. documented in this encounter [facility] 05-13-2024 Telephone encounter Note Prescription Refill Information The patient has been identified by name and date of : Yes Caregiver verified no other encounters exist for this prescription request: Yes Caregiver confirmed with patient/requestor that no other refills are due, in the near future, with this provider at this time: Yes The last office visit in the department: Does the patient have a future office visit with this provider/department: Yes Requested Prescriptions Pending Prescriptions Disp Refills HYDROcodone-acetaminophen (NORCO) 5-325 mg per tablet 20 tablet 0 Sig: Take 1 tablet by mouth every 8 hours as needed for pain for up to 7 days. [facility] 05-06-2024 Note HNO ID: [id number] Author: MAKAYLA BRADLEY MD Service: ? Author Type: Physician Type: Progress Notes Filed: 06/03/2024 22:58 Note Text: DR. BRADLEY- POST-OP KNEE Post-Op F/U Office Visit Caden Llamas presents today for a 3 months status post Left TKA. Post-operative recovery was uneventful. Patient's rating of condition: improving Comments: None Does the Pt. still experience pain? PAIN EVALUATION 05/06/2024 1962 Pain Level: 0 Pain Location: Knee-Left Functional difficulties: Stair climbing Physical Therapy: Yes Pain Medication: Vicodin for episodes of increase in pain but she finds the need for this is decreasing ambulating without assistance. Medications and Allergies reviewed and verified. EXAM: GEN: AANDO x3, NAD SKIN:Appropriate postop appearance Incision intact Incision well healed LeftKnee: ROM: Flexion/Extension:5 degrees to 110 degrees Pain with ROM:No Mal-alignment: No Effusion: None Tender to palpation of the medial joint line(s). Stability:Anterior/Posterior- Yes, stable and Varus/Valgus- Yes, stable Quad strength: normal HIP: range of motion no loss ROM NV: intact and Olayinka's negative IMAGING: Xrays: No x-rays today IMPRESSION/PLAN: 69 year old female s/p Left TKA At normal post-operative stage of recovery. Plan: 1. Continue range of motion/strengthening exercises and weightbearing as tolerated 2. Final prescription for Vicodin given for episodes of increased pain 3. Continue total knee precautions 4. Follow-up for repeat clinical evaluation Makayla Bradley MD Electronic Signature [facility] 05-06-2024 History of Present illness Narrative DR. BRADLEY- POST-OP KNEE Post-Op F/U Office Visit Caden Llamas presents today for a 3 months status post Left TKA. Post-operative recovery was uneventful. Patient's rating of condition: improving Comments: None Does the Pt. still experience pain? PAIN EVALUATION 05/06/2024 1352 Pain Level: 0 Pain Location: Knee-Left Functional difficulties: Stair climbing Physical Therapy: Yes Pain Medication: Vicodin for episodes of increase in pain but she finds the need for this is decreasing ambulating without assistance. Medications and Allergies reviewed and verified. EXAM: GEN: A&O x3, NAD SKIN:Appropriate postop appearance Incision intact Incision well healed LeftKnee: ROM: Flexion/Extension:5 degrees to 110 degrees Pain with ROM:No Mal-alignment: No Effusion: None Tender to palpation of the medial joint line(s). Stability:Anterior/Posterior- Yes, stable and Varus/Valgus- Yes, stable Quad strength: normal HIP: range of motion no loss ROM NV: intact and Olayinka's negative IMAGING: Xrays: No x-rays today IMPRESSION/PLAN: 69 year old female s/p Left TKA At normal post-operative stage of recovery. Plan: 1. Continue range of motion/strengthening exercises and weightbearing as tolerated 2. Final prescription for Vicodin given for episodes of increased pain 3. Continue total knee precautions 4. Follow-up for repeat clinical evaluation Makayla Bradley MD Electronic Signature documented in this encounter [facility] 05-02-2024 Telephone encounter Note Pt Is on diff dose [facility] 05-02-2024 Miscellaneous Notes Pt Is on diff dose pharmacy electronically requesting refills as follows: Last seen 04/19/24 . Last refill 02/11/24 . Requested Prescriptions Pending Prescriptions Disp Refills amLODIPine (NORVASC) 5 mg tablet [Pharmacy Med Name: amlodipine 5 mg tablet] 90 tablet 1 Sig: take 1 tablet by mouth once daily. Please review and advise. Paula Galeas MA documented in this encounter [facility] 05-02-2024 Telephone encounter Note pharmacy electronically requesting refills as follows: Last seen 04/19/24 . Last refill 02/11/24 . Requested Prescriptions Pending Prescriptions Disp Refills amLODIPine (NORVASC) 5 mg tablet [Pharmacy Med Name: amlodipine 5 mg tablet] 90 tablet 1 Sig: take 1 tablet by mouth once daily. Please review and advise. Paula Galeas MA [facility] 04-21-2024 Telephone encounter Note [facility] website reviewed and validated. Patient has been compliant and taking medication appropriately without evidence of suspicious activity. Will refill Rx. Melanie Magana PA-C [facility] 04-21-2024 Miscellaneous Notes PDMP website reviewed and validated. Patient has been compliant and taking medication appropriately without evidence of suspicious activity. Will refill Rx. Melanie Magana PA-C Prescription Refill Information The patient has been identified by name and date of : Yes Caregiver verified no other encounters exist for this prescription request: Yes Caregiver confirmed with patient/requestor that no other refills are due, in the near future, with this provider at this time: Yes The last office visit in the department: n/a Does the patient have a future office visit with this provider/department: Yes Requested Prescriptions No prescriptions requested or ordered in this encounter Patient needs a refill on pain medication please send the pharmacy on file. George Edmond April 21, 2024 1:23 PM documented in this encounter [facility] 04-21-2024 Note HNO ID: [id number] Author: SKY ALFARO, PT Service: ? Author Type: Physical Therapist Type: Progress Notes Filed: 04/21/2024 14:05 Note Text: 04/21/2024 [facility] PHYSICAL THERAPY DISCONTINUANCE OF CARE Plan of Care Period: Start of Care Date: 03/09/24 Last Visit Date: 03/09/2024 Therapy Program: Patient did not return for follow up care as planned. Please refer to last visit note for interventions provided for this episode of care. Assessment: Unable to formally assess goal achievement. Reason for Discontinuation of Care: Patient has not returned to therapy or scheduled additional follow-up appointments. Sky Alfaro, PT [facility] 04-21-2024 Telephone encounter Note Prescription Refill Information The patient has been identified by name and date of : Yes Caregiver verified no other encounters exist for this prescription request: Yes Caregiver confirmed with patient/requestor that no other refills are due, in the near future, with this provider at this time: Yes The last office visit in the department: n/a Does the patient have a future office visit with this provider/department: Yes Requested Prescriptions No prescriptions requested or ordered in this encounter Patient needs a refill on pain medication please send the pharmacy on file. George Edmond April 21, 2024 1:23 PM [facility] 04-21-2024 Telephone encounter Note ----- Message from Moises Malcolm APRN.HUMAN MACHINE INTERFACE ENGINEER sent at 04/21/2024 6:50 AM EDT ----- Mammogram normal. Follow up routine yearly screening IMPRESSION IMPRESSION: There is no mammographic evidence of malignancy in either breast. [facility] 04-21-2024 Miscellaneous Notes ----- Message from Moises Malcolm APRN.HUMAN MACHINE INTERFACE ENGINEER sent at 04/21/2024 6:50 AM EDT ----- Mammogram normal. Follow up routine yearly screening IMPRESSION IMPRESSION: There is no mammographic evidence of malignancy in either breast. documented in this encounter [facility] 04-19-2024 History of Present illness Narrative This note was created using [employer]. Subjective Caden Llamas is a 69 year old female here today for acute visit for insomnia. PMH DM, HTN, HLD, asthma, RUTH, CKD. She reports she has hard time falling asleep and staying asleep. States she goes to go bed at 9pm and states she wont fall asleep till 3 and is up at 630 am. States she will watch TV or listen to restorationism music. She denies any caffeine use. She has tried otc- melatonin 2 tabs at bedtime. Reports it worked the first night but after that it did not work. She has tried sleep eez cough medicine, sleepy time tea, benadryl. She was on trazodone 50 mg this did not work so she up it to 2 tabs and states that did not work. She had left TKR. 02/02/24. She is still in therapy. She will go back to work at the end of the month. 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 ALLERGIES Allergen Reactions Cats Swelling Latex Rash Lisinopril Swelling Tongue swells up Current Outpatient Medications Medication Sig Dispense Refill methocarbamol (ROBAXIN) 500 mg tablet Take 1 tablet by mouth three times a day as needed (muscle spasms). 15 tablet 0 amLODIPine (NORVASC) 10 mg tablet Take 1 tablet by mouth once daily. 90 tablet 1 acetaminophen (TYLENOL) 500 mg tablet Take 2 tablets by mouth every 8 hours as needed for pain. 90 tablet 0 ascorbic acid, vitamin C, (VITAMIN C) 500 mg tablet Take 1 tablet by mouth two times a day with meals for 27 doses. 27 tablet 0 aspirin, enteric coated (ASPIRIN, ENTERIC COATED) 81 mg EC tablet Take 1 tablet by mouth two times a day for 28 days. 56 tablet 0 omeprazole (PRILOSEC) 40 mg capsule Take 1 capsule by mouth once daily. 90 capsule 1 gabapentin (NEURONTIN) 800 mg tablet Take 1 tablet by mouth three times a day for 180 days. 270 tablet 1 carvedilol (COREG) 12.5 mg tablet 1 tablet two times a day with meals. (Patient taking differently: Take 1 tablet by mouth two times a day with meals.) traZODone (DESYREL) 50 mg tablet Take 1 tablet by mouth daily at bedtime. 30 tablet 11 ergocalciferol 50,000 unit capsule (VITAMIN D2, DRISDOL) Take 1 capsule by mouth one time a week. 4 capsule 1 meclizine (ANTIVERT) 25 mg tab Take 25 mg by mouth once daily. albuterol HFA (PROAIR HFA) 90 mcg/actuation inhaler Inhale 1 Puff as instructed every 4 hours as needed for wheezing/shortness of breath. ferrous sulfate 325 mg (65 mg iron) tablet Take 325 mg by mouth daily with breakfast. CPAP No current facility-administered medications for this visit. ACTIVE PROBLEM LIST Climacteric Hypertension Hyperlipidemia With Target Low Density Lipoprotein (Ldl) Cholesterol Less Than 100 Mg/Dl Arthritis of Right Knee Urinary Incontinence Lower Urinary Tract Symptoms (Luts) H/O Brain Aneurysm H/O Stroke (HCC) Asthma Diabetes Mellitus Type 2, Uncomplicated (Hcc) Peripheral Neuropathy Weiss (Dyspnea On Exertion) Chest Pain of Uncertain Etiology Stage 2 Chronic Kidney Disease Anemia Anxiety Morbidly Obese (Hcc) Ruth (Obstructive Sleep Apnea) S/P Total Knee Replacement Post-Traumatic Osteoarthritis of Right Shoulder Rotator Cuff Syndrome of Left Shoulder Atrial Fibrillation (Hcc) Obesity, Class III, BMI >= 40 S/P Total Knee Arthroplasty, Left PAST MEDICAL HISTORY Diagnosis Date Active asthma Anxiety Arthritis of knee, left 10/21/2012 Brain aneurysm Diabetes mellitus type 2, uncomplicated (HCC) Fibroids Hyperlipidemia LDL goal < 100 02/25/2013 Hypertension Morbidly obese (HCC) 10/20/2018 RUTH (obstructive sleep apnea) 10/20/2018 Peripheral neuropathy 10/20/2018 Pulmonary embolism (HCC) 12/13/2012 Right shoulder injury 10/21/2012 Stroke (HCC) PAST SURGICAL HISTORY Procedure Laterality Date APPENDECTOMY ARTHRP KNE CONDYLE&PLATU MEDIAL&LAT COMPARTMENTS Right 10/27/2018 Knee replacement, total BRAIN SURGERY HX 02/2013 brain aneurysm coiled CARDIAC CATH 2018 CHOLECYSTECTOMY Cholecystectomy SHOULDER SURGERY HX Right TOTAL KNEE REPLACEMENT Left 02/02/2024 VAGINAL HYSTERECTOMY UTERUS 250 GM/< Hysterectomy, vaginal, Fibroids Social History Tobacco Use Smoking status: Never Smokeless tobacco: Never Tobacco comments: Smoked as a teenager Vaping Use Vaping status: Never Used Substance Use Topics Alcohol use: No Drug use: No Family History Problem Relation Age of Onset Cancer Mother Liver Diabetes Mother Hypertension Mother Lipids Mother Heart Father [place] Psychiatry Sister Hypertension Sister Diabetes Sister Review of Systems Constitutional: Negative for chills, fatigue and fever. Respiratory: Negative for cough, shortness of breath and wheezing. Cardiovascular: Negative for chest pain, palpitations and leg swelling. Gastrointestinal: Negative for diarrhea, nausea and vomiting. Neurological: Negative for dizziness, facial asymmetry, light-headedness, numbness and headaches. Psychiatric/Behavioral: Positive for sleep disturbance. Negative for decreased concentration and dysphoric mood. The patient is not nervous/anxious. See HPI Objective 04/19/24 1430 BP: 126/76 Pulse: 92 Resp: 16 SpO2: 95% Weight: 92.1 kg (203 lb) Height: 157.5 cm (5' 2) Physical Exam Vitals and nursing note reviewed. Constitutional: General: She is not in acute distress. Appearance: She is obese. She is not ill-appearing. Cardiovascular: Rate and Rhythm: Normal rate and regular rhythm. Pulses: Normal pulses. Heart sounds: Normal heart sounds. No murmur heard. Pulmonary: Effort: Pulmonary effort is normal. Breath sounds: Normal breath sounds. Skin: General: Skin is warm and dry. Neurological: Mental Status: She is alert and oriented to person, place, and time. Psychiatric: Mood and Affect: Mood normal. Behavior: Behavior normal. Thought Content: Thought content normal. Judgment: Judgment normal. ASSESSMENT/PLAN: 1. Insomnia, unspecified type - ICD9: 780.52, ICD10: G47.00 (primary diagnosis) - chronic, trouble falling and staying asleep. She has tried OTC medications including benadryl and melatonin without relief. She tried trazodone 100 mg without relief. She is not interested in increasing dosage of trazodone. Will try Rozerem 8 mg at bedtime to see if this will help. - reviewed good sleep hygiene with patient. - RAMELTEON 8 MG TABLET 2. Stage 2 chronic kidney disease - ICD9: 585.2, ICD10: N18.2 - eGFR: 73 Improving, resolved creatinine is now normal - Counseled on avoiding NSAIDs, adequate hydration - Counseled on low sodium diet 3. Hyperlipidemia with target low density lipoprotein (LDL) cholesterol less than 100 mg/dL - ICD9: 272.4, ICD10: E78.5 - Control undetermined, due for labs - Counseled on healthy diet and regular exercise - Discussed need for and benefit of weight loss. BMI 37.13 kg/(m^2) - LIPID PANEL BASIC 4. Hypertension, unspecified type - ICD9: 401.9, ICD10: I10 - Controlled - Continue current medications - Recommend home blood pressure monitoring, to bring results to next visit - Encouraged sodium restriction, DASH or Mediterranean diet - Recommend regular aerobic exercise - Discussed need for and benefit of weight loss. BMI 37.13 kg/(m^2) 5. Vitamin D deficiency - ICD9: 268.9, ICD10: E55.9 - VITAMIN D 25 HYDROXY 6. Screening for thyroid disorder - ICD9: V77.0, ICD10: Z13.29 - THYROID STIMULATING HORMONE 7. Encounter for immunization - ICD9: V03.89, ICD10: Z23 - INFLUENZA VACCINE, PRSV FREE, AGE 65+ YR, HIGH DOSE, TRIVALENT (FLUZONE HIGH-DOSE) - IMADM PRQ ID SUBQ/IM NJXS 1 VACC - given today at ov 8. RUTH (obstructive sleep apnea) - ICD9: 327.23, ICD10: G47.33 - pt is non compliant - she is not interested in cpap. States she is unable to tolerated it. - declines sleep medicine referral. Moises Malcolm APRN.HUMAN MACHINE INTERFACE ENGINEER documented in this encounter [facility] 04-19-2024 Note HNO ID: [id number] Author: MOISES MALCOLM APRN.HUMAN MACHINE INTERFACE ENGINEER Service: ? Author Type: Nurse Practitioner Type: Progress Notes Filed: 04/21/2024 07:04 Note Text: This note was created using [employer]. Subjective Caden Llamas is a 69 year old female here today for acute visit for insomnia. PMH DM, HTN, HLD, asthma, RUTH, CKD. She reports she has hard time falling asleep and staying asleep. States she goes to go bed at 9pm and states she wont fall asleep till 3 and is up at 630 am. States she will watch TV or listen to restorationism music. She denies any caffeine use. She has tried otc- melatonin 2 tabs at bedtime. Reports it worked the first night but after that it did not work. She has tried sleep eez cough medicine, sleepy time tea, benadryl. She was on trazodone 50 mg this did not work so she up it to 2 tabs and states that did not work. She had left TKR. 02/02/24. She is still in therapy. She will go back to work at the end of the month. 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 ALLERGIES Allergen Reactions Cats Swelling Latex Rash Lisinopril Swelling Tongue swells up Current Outpatient Medications Medication Sig Dispense Refill methocarbamol (ROBAXIN) 500 mg tablet Take 1 tablet by mouth three times a day as needed (muscle spasms). 15 tablet 0 amLODIPine (NORVASC) 10 mg tablet Take 1 tablet by mouth once daily. 90 tablet 1 acetaminophen (TYLENOL) 500 mg tablet Take 2 tablets by mouth every 8 hours as needed for pain. 90 tablet 0 ascorbic acid, vitamin C, (VITAMIN C) 500 mg tablet Take 1 tablet by mouth two times a day with meals for 27 doses. 27 tablet 0 aspirin, enteric coated (ASPIRIN, ENTERIC COATED) 81 mg EC tablet Take 1 tablet by mouth two times a day for 28 days. 56 tablet 0 omeprazole (PRILOSEC) 40 mg capsule Take 1 capsule by mouth once daily. 90 capsule 1 gabapentin (NEURONTIN) 800 mg tablet Take 1 tablet by mouth three times a day for 180 days. 270 tablet 1 carvedilol (COREG) 12.5 mg tablet 1 tablet two times a day with meals. (Patient taking differently: Take 1 tablet by mouth two times a day with meals.) traZODone (DESYREL) 50 mg tablet Take 1 tablet by mouth daily at bedtime. 30 tablet 11 ergocalciferol 50,000 unit capsule (VITAMIN D2, DRISDOL) Take 1 capsule by mouth one time a week. 4 capsule 1 meclizine (ANTIVERT) 25 mg tab Take 25 mg by mouth once daily. albuterol HFA (PROAIR HFA) 90 mcg/actuation inhaler Inhale 1 Puff as instructed every 4 hours as needed for wheezing/shortness of breath. ferrous sulfate 325 mg (65 mg iron) tablet Take 325 mg by mouth daily with breakfast. CPAP No current facility-administered medications for this visit. ACTIVE PROBLEM LIST Climacteric Hypertension Hyperlipidemia With Target Low Density Lipoprotein (Ldl) Cholesterol Less Than 100 Mg/Dl Arthritis of Right Knee Urinary Incontinence Lower Urinary Tract Symptoms (Luts) H/O Brain Aneurysm H/O Stroke (HCC) Asthma Diabetes Mellitus Type 2, Uncomplicated (Hcc) Peripheral Neuropathy Weiss (Dyspnea On Exertion) Chest Pain of Uncertain Etiology Stage 2 Chronic Kidney Disease Anemia Anxiety Morbidly Obese (Hcc) Ruth (Obstructive Sleep Apnea) S/P Total Knee Replacement Post-Traumatic Osteoarthritis of Right Shoulder Rotator Cuff Syndrome of Left Shoulder Atrial Fibrillation (Hcc) Obesity, Class III, BMI >= 40 S/P Total Knee Arthroplasty, Left PAST MEDICAL HISTORY Diagnosis Date Active asthma Anxiety Arthritis of knee, left 10/21/2012 Brain aneurysm Diabetes mellitus type 2, uncomplicated (HCC) Fibroids Hyperlipidemia LDL goal < 100 02/25/2013 Hypertension Morbidly obese (HCC) 10/20/2018 RUTH (obstructive sleep apnea) 10/20/2018 Peripheral neuropathy 10/20/2018 Pulmonary embolism (HCC) 12/13/2012 Right shoulder injury 10/21/2012 Stroke (HCC) PAST SURGICAL HISTORY Procedure Laterality Date APPENDECTOMY ARTHRP KNE CONDYLEANDPLATU MEDIALANDLAT COMPARTMENTS Right 10/27/2018 Knee replacement, total BRAIN SURGERY HX 02/2013 brain aneurysm coiled CARDIAC CATH 2019 CHOLECYSTECTOMY Cholecystectomy SHOULDER SURGERY HX Right TOTAL KNEE REPLACEMENT Left 02/02/2024 VAGINAL HYSTERECTOMY UTERUS 250 GM/< Hysterectomy, vaginal, Fibroids Social History Tobacco Use Smoking status: Never Smokeless tobacco: Never Tobacco comments: Smoked as a teenager Vaping Use Vaping status: Never Used Substance Use Topics Alcohol use: No Drug use: No Family History Problem Relation Age of Onset Cancer Mother Liver Diabetes Mother Hypertension Mother Lipids Mother Heart Father [place] Psychiatry Sister Hypertension Sister Diabetes Sister Review of Systems Constitutional: Negative for chills, fatigue and fever. Respiratory: Negative for cough, shortness of breath and wheezing. Cardiovascular: Negative for chest pain, palpitations and leg swelling. Gastrointestinal: Negative for diarrhea, nausea (more content not included)... [facility] 04-18-2024 History of Present illness Narrative Radiology Service Progress Note PATIENT NAME: Caden Llamas DATE OF SERVICE: April 18, 2024 TIME: 9:08 AM PATIENT IDENTITY VERIFICATION COMPLETED USING TWO (2) IDENTIFIERS: Name and Date of confirmed by patient verbally. FALL SCREENING: Has the patient had 2 falls in the last year or 1 fall with injury or currently using an Ambulatory Assistive Device (Walker, Cane, Wheelchair, Crutches, etc.)? No PATIENT GENDER DATA: Female. status: : No status: NO. PATIENT RELEVANT IMPLANT DATA REVIEWED: Not Applicable PATIENT PRESENTS WITH AN IMPLANTABLE OR ATTACHED PLASTERER FOREMAN: No RADIOLOGY DEPARTMENT: Mammography PERIPHERAL IV DATA: Not applicable SIGNED BY: Ramila Mckoy [employer] April 18, 2024 9:08 AM documented in this encounter [facility] 04-18-2024 Note HNO ID: [id number] Author: RAMILA MCKOY Mammo Tech Service: ? Author Type: Veterans' Counselor Type: Progress Notes Filed: 04/18/2024 09:08 Note Text: Radiology Service Progress Note PATIENT NAME: Caden Llamas DATE OF SERVICE: April 18, 2024 TIME: 9:08 AM PATIENT IDENTITY VERIFICATION COMPLETED USING TWO (2) IDENTIFIERS: Name and Date of confirmed by patient verbally. FALL SCREENING: Has the patient had 2 falls in the last year or 1 fall with injury or currently using an Ambulatory Assistive Device (Walker, Cane, Wheelchair, Crutches, etc.)? No PATIENT GENDER DATA: Female. status: : No status: NO. PATIENT RELEVANT IMPLANT DATA REVIEWED: Not Applicable PATIENT PRESENTS WITH AN IMPLANTABLE OR ATTACHED PLASTERER FOREMAN: No RADIOLOGY DEPARTMENT: Mammography PERIPHERAL IV DATA: Not applicable SIGNED BY: Dwayne Babcock April 18, 2024 9:08 AM [facility] 04-11-2024 Telephone encounter Note PDMP website reviewed and validated. Patient has been compliant and taking medication appropriately without evidence of suspicious activity. Will refill Rx. Lm Lloyd PA-C April 11, 2024 1:57 PM [facility] 04-11-2024 Miscellaneous Notes PDMP website reviewed and validated. Patient has been compliant and taking medication appropriately without evidence of suspicious activity. Will refill Rx. Lm Lloyd PA-C April 11, 2024 1:57 PM Prescription Refill Information The patient has been identified by name and date of : Yes Caregiver verified no other encounters exist for this prescription request: Yes Caregiver confirmed with patient/requestor that no other refills are due, in the near future, with this provider at this time: Yes The last office visit in the department: 03/18/2024 Does the patient have a future office visit with this provider/department: Yes Requested Prescriptions No prescriptions requested or ordered in this encounter Patient needs a refill of pain medication sent the pharmacy on file. George Edmond April 11, 2024 8:14 AM documented in this encounter [facility] 04-11-2024 Telephone encounter Note Prescription Refill Information The patient has been identified by name and date of : Yes Caregiver verified no other encounters exist for this prescription request: Yes Caregiver confirmed with patient/requestor that no other refills are due, in the near future, with this provider at this time: Yes The last office visit in the department: 03/18/2024 Does the patient have a future office visit with this provider/department: Yes Requested Prescriptions No prescriptions requested or ordered in this encounter Patient needs a refill of pain medication sent the pharmacy on file. George Edmond April 11, 2024 8:14 AM [facility] 04-01-2024 Telephone encounter Note PDMP website reviewed and validated. Patient has been compliant and taking medication appropriately without evidence of suspicious activity. Will refill Rx. Melanie Magana PA-C [facility] 04-01-2024 Miscellaneous Notes PDMP website reviewed and validated. Patient has been compliant and taking medication appropriately without evidence of suspicious activity. Will refill Rx. Melanie Magana PA-C Prescription Refill Information The patient has been identified by name and date of : Yes Caregiver verified no other encounters exist for this prescription request: Yes Caregiver confirmed with patient/requestor that no other refills are due, in the near future, with this provider at this time: Yes The last office visit in the department: 03/2024 Does the patient have a future office visit with this provider/department: Yes Requested Prescriptions Pending Prescriptions Disp Refills oxyCODONE IR (ROXICODONE) 5 mg immediate release tablet 28 tablet 0 Sig: Take 1 tablet by mouth every 6 hours as needed for pain for up to 7 days. for pain. George Edmond April 01, 2024 8:19 AM documented in this encounter [facility] 04-01-2024 Telephone encounter Note Prescription Refill Information The patient has been identified by name and date of : Yes Caregiver verified no other encounters exist for this prescription request: Yes Caregiver confirmed with patient/requestor that no other refills are due, in the near future, with this provider at this time: Yes The last office visit in the department: 03/2024 Does the patient have a future office visit with this provider/department: Yes Requested Prescriptions Pending Prescriptions Disp Refills oxyCODONE IR (ROXICODONE) 5 mg immediate release tablet 28 tablet 0 Sig: Take 1 tablet by mouth every 6 hours as needed for pain for up to 7 days. for pain. George Edmond April 01, 2024 8:19 AM [facility] 03-25-2024 Telephone encounter Note PDMP website reviewed and validated. Patient has been compliant and taking medication appropriately without evidence of suspicious activity. Will refill Rx. Marcello Lloyd PA-C March 25, 2024 12:00 PM [facility] 03-25-2024 Miscellaneous Notes PDMP website reviewed and validated. Patient has been compliant and taking medication appropriately without evidence of suspicious activity. Will refill Rx. Marcello Lloyd PA-C March 25, 2024 12:00 PM Prescription Refill Information The patient has been identified by name and date of : Yes Caregiver verified no other encounters exist for this prescription request: Yes Caregiver confirmed with patient/requestor that no other refills are due, in the near future, with this provider at this time: Yes The last office visit in the department: 04/25/2024 Does the patient have a future office visit with this provider/department: Yes Requested Prescriptions No prescriptions requested or ordered in this encounter Patient will need a refill of the pain medication. Please send to pharmacy one file George Edmond March 25, 2024 11:10 AM documented in this encounter [facility] 03-25-2024 Telephone encounter Note Prescription Refill Information The patient has been identified by name and date of : Yes Caregiver verified no other encounters exist for this prescription request: Yes Caregiver confirmed with patient/requestor that no other refills are due, in the near future, with this provider at this time: Yes The last office visit in the department: 04/25/2024 Does the patient have a future office visit with this provider/department: Yes Requested Prescriptions No prescriptions requested or ordered in this encounter Patient will need a refill of the pain medication. Please send to pharmacy one file George Edmond March 25, 2024 11:10 AM [facility] 03-18-2024 Note HNO ID: [id number] Author: MAKAYLA BRADLEY MD Service: ? Author Type: Physician Type: Progress Notes Filed: 04/15/2024 23:19 Note Text: DR. BRADLEY- POST-OP KNEE Post-Op F/U Office Visit Caden Llamas presents today for a 6 weeks status post Left TKA. Post-operative recovery was uneventful. Patient's rating of condition: improving Comments: None Does the Pt. still experience pain? PAIN EVALUATION 03/18/2024 2084 Pain Level: 4 Pain Location: Knee-Left Description: Sore;Aching Duration Amount of Time: -- ongoing Frequency: Intermittent Intervention/Comfort measure: Medication;Cold Functional difficulties: Stair climbing Physical Therapy: Completed Home PT Pain Medication: Yes Ambulating without assistance. Medications and Allergies reviewed and verified. EXAM: GEN: AANDO x3, NAD SKIN:Appropriate postop appearance Incision intact Incision well healed LeftKnee: ROM: Flexion/Extension:10 degrees to 100 degrees Pain with ROM:No Mal-alignment: No Effusion: None Tender to palpation of the medial and patellofemoral joint line(s). Stability:Anterior/Posterior- Yes, stable and Varus/Valgus- Yes, stable Quad strength: normal HIP: range of motion no loss ROM NV: intact and Olayinka's negative IMAGING: Xrays: No x-rays today IMPRESSION/PLAN: 69 year old female s/p Left TKA At normal post-operative stage of recovery. Plan: 1 refer to physical therapy for continued range of motion and strengthening exercises with emphasis on flexion and extension 2. Continue total knee precautions 3. Follow-up for repeat clinical evaluation Makayla Bradley MD Electronic Signature [facility] 03-18-2024 History of Present illness Narrative Images from the original note were not included. DR. BRADLEY- POST-OP KNEE Post-Op F/U Office Visit Caden Llamas presents today for a 6 weeks status post Left TKA. Post-operative recovery was uneventful. Patient's rating of condition: improving Comments: None Does the Pt. still experience pain? PAIN EVALUATION 03/18/2024 6437 Pain Level: 4 Pain Location: Knee-Left Description: Sore;Aching Duration Amount of Time: -- ongoing Frequency: Intermittent Intervention/Comfort measure: Medication;Cold Functional difficulties: Stair climbing Physical Therapy: Completed Home PT Pain Medication: Yes Ambulating without assistance. Medications and Allergies reviewed and verified. EXAM: GEN: A&O x3, NAD SKIN:Appropriate postop appearance Incision intact Incision well healed LeftKnee: ROM: Flexion/Extension:10 degrees to 100 degrees Pain with ROM:No Mal-alignment: No Effusion: None Tender to palpation of the medial and patellofemoral joint line(s). Stability:Anterior/Posterior- Yes, stable and Varus/Valgus- Yes, stable Quad strength: normal HIP: range of motion no loss ROM NV: intact and Olayinka's negative IMAGING: Xrays: No x-rays today IMPRESSION/PLAN: 69 year old female s/p Left TKA At normal post-operative stage of recovery. Plan: 1 refer to physical therapy for continued range of motion and strengthening exercises with emphasis on flexion and extension 2. Continue total knee precautions 3. Follow-up for repeat clinical evaluation Makayla Bradley MD Electronic Signature documented in this encounter [facility] 03-16-2024 Telephone encounter Note Pt left message stating that she needs refill on her sleeping medication. No additional medication information provided. Left message to call back to confirm the medication name and strength along with pharmacy. Joanne Jaimes LPN [facility] 03-16-2024 Miscellaneous Notes Pt left message stating that she needs refill on her sleeping medication. No additional medication information provided. Left message to call back to confirm the medication name and strength along with pharmacy. Joanne Jaimes LPN documented in this encounter [facility] 03-15-2024 Telephone encounter Note PDMP website reviewed and validated. Patient has been compliant and taking medication appropriately without evidence of suspicious activity. Will refill Rx. Melanie Magana PA-C [facility] 03-15-2024 Miscellaneous Notes PDMP website reviewed and validated. Patient has been compliant and taking medication appropriately without evidence of suspicious activity. Will refill Rx. Melanie Magana PA-C Patient calling for a refill on her oxycodone Jovita Vivas documented in this encounter [facility] 03-15-2024 Telephone encounter Note Patient calling for a refill on her oxycodone Jovita Vivas [facility] 03-09-2024 Note HNO ID: [id number] Author: SKY ALFARO PT Service: ? Author Type: Physical Therapist Type: Progress Notes Filed: 03/09/2024 13:12 Note Text: Episode Visit Count: 1 Therapist That Will Accept/Oversee The Plan Of Care: Sky Alfaro PT Start of Care Date: 03/09/24 Onset Date: 03/09/23 Plan of Care Certification Date: 03/09/24 Next Certification Due Date: 04/15/24 Patient Identified by Name and Date of : Yes REHABILITATION AND SPORTS THERAPY PHYSICAL THERAPY EVALUATION PLAN OF CARE: Assessment: Caden Llamas presents with diagnosis of status-post L TKA that interferes with walking in the community, stair negotiation, squatting, physical activities, working ((Also, Laying on L Side)) . She presents with impairments in ADL's, gait, independence in exercise, overall function, range of motion, soft tissue healing, strength, symptom management, and tissue tenderness. Uateooxo-ac-jll deficits in Knee Extension motion currently. PROMIS? (Patient-Reported Outcomes Measurement Information System) scores were reviewed and identified as a rehabilitation concern. Prognosis for therapy is Good due to: current objective clinical presentation, acuteness of condition, good support system/ coping skills .She will benefit from skilled therapy services to meet the goals established for this plan of care as noted below. Goals for Episode of Care: established 03/09/24 to 06/01/24. - Patient reported outcome of physical function will increase T-score by a minimum 5 points. - Pershing in home exercise program. - Patient will decrease pain rating by 2 points to meet minimal clinical important difference for numeric pain rating scale. - Patient will increase active ROM of L knee to 0-130 degrees to allow the patient to improve walking in the community and stair navigation as well as performance of ADLs/IADLs. - Patient will demonstrate increase in LLE strength to 5/5 during manual muscle testing in order to improve function for basic self-care tasks, home management tasks, leisure/recreation skills, and prior functional tasks. - Perform gait unassisted with improved mechanics/deviations and decreased report of symptoms/pain in 10 weeks or less. - Normal Reciprocal Gait for improved QOL Patient Goals: Walk unassisted; return to work. Time Frame for Goals and Treatment : 06/01/24 Planned Interventions, Frequency, and Duration: Current Frequency: 2x/week Duration: 8 weeks Total Number of Visits Planned: 16 Planned Treatment Interventions: Therapeutic exercise (40902), Neuromuscular re-education (57474), Manual therapy (95046), Therapeutic activities (16205), Self-fci management (58659), Gait Training (13835), Patient/Family/Caregiver Education PLAN FOR NEXT VISIT: Assess response to HEP; Knee motion dread. Ext; quad strength. Patient demonstrates good understanding of plan of care and treatment. The above goals and plan of care were discussed and agreed upon by patient/family. SUBJECTIVE: L TKA 36 days ago; discharged from [facility] last Thursday; presents on FWW today (no AD prior to surgery). Fall last week, doesn't know how she fell. Fell backwards on back getting yogurt out of fridge, assisted to upright, no injury. No RTW date yet. Was able to get into tub shower today, took her time. Took pain pills prior to visit today. Doing home health PT exercises 1x a day. Patient Goals: Walk unassisted; return to work. Functional Limitations: walking in the community, stair negotiation, squatting, physical activities, working ((Also, Laying on L Side)) Prior Level of Function: Independent without limitations Relevant History Past Relevant Medical Conditions: Per review with patient no issues were identified, Comments Relevant Medical Conditions Comments: TIA Stroke. Past Relevant Surgical Conditions: Total Knee Replacement-Right, Comments Relevant Surgical Conditions Comments: About 3 Years Ago. 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 Home Environment Patient Lives With: Spouse Assistance Available: PRN Intake Information: Prescription present Previous Treatment: Pain meds , Ice (Leg Elevated/Ice Man.) Falls Interview: No positive findings with falls interview Pain: Pain Pain Level: 2 Pain Location: Knee - Left Description: Aching Frequency: Continuous Post Treatment Pain Post Treatment Pain Level: No Change PROMIS Scales 03/09/2024 Higher is Better Phys Func - Score 38 (moderate dysfunction) Phys Func - Percentile 12 Self-Eff Symptom - Score 42 (Average) Self-Eff Symptom - Percentile 21 T-scores: mean of general population = 50. 5 points is clinically meaningfully difference Percentiles provide an indication of how the patient's score ranks in relation to the general population. Higher percentile rankings indicate better function/quality of life. 50th percentile is the average of the gene (more content not included)... [facility] 03-09-2024 History of Present illness Narrative Images from the original note were not included. Episode Visit Count: 1 Therapist That Will Accept/Oversee The Plan Of Care: Sky Alfaro PT Start of Care Date: 03/09/24 Onset Date: 03/09/23 Plan of Care Certification Date: 03/09/24 Next Certification Due Date: 04/15/24 Patient Identified by Name and Date of : Yes REHABILITATION AND SPORTS THERAPY PHYSICAL THERAPY EVALUATION PLAN OF CARE: Assessment: Caden Llamas presents with diagnosis of status-post L TKA that interferes with walking in the community, stair negotiation, squatting, physical activities, working ((Also, Laying on L Side)) . She presents with impairments in ADL's, gait, independence in exercise, overall function, range of motion, soft tissue healing, strength, symptom management, and tissue tenderness. [id number] deficits in Knee Extension motion currently. PROMIS (Patient-Reported Outcomes Measurement Information System) scores were reviewed and identified as a rehabilitation concern. Prognosis for therapy is Good due to: current objective clinical presentation, acuteness of condition, good support system/ coping skills .She will benefit from skilled therapy services to meet the goals established for this plan of care as noted below. Goals for Episode of Care: established 03/09/24 to 06/01/24. - Patient reported outcome of physical function will increase T-score by a minimum 5 points. - Pershing in home exercise program. - Patient will decrease pain rating by 2 points to meet minimal clinical important difference for numeric pain rating scale. - Patient will increase active ROM of L knee to 0-130 degrees to allow the patient to improve walking in the community and stair navigation as well as performance of ADLs/IADLs. - Patient will demonstrate increase in LLE strength to 5/5 during manual muscle testing in order to improve function for basic self-care tasks, home management tasks, leisure/recreation skills, and prior functional tasks. - Perform gait unassisted with improved mechanics/deviations and decreased report of symptoms/pain in 10 weeks or less. - Normal Reciprocal Gait for improved QOL Patient Goals: Walk unassisted; return to work. Time Frame for Goals and Treatment : 06/01/24 Planned Interventions, Frequency, and Duration: Current Frequency: 2x/week Duration: 8 weeks Total Number of Visits Planned: 16 Planned Treatment Interventions: Therapeutic exercise (10611), Neuromuscular re-education (93686), Manual therapy (86984), Therapeutic activities (53967), Self-fci management (58118), Gait Training (41879), Patient/Family/Caregiver Education PLAN FOR NEXT VISIT: Assess response to HEP; Knee motion dread. Ext; quad strength. Patient demonstrates good understanding of plan of care and treatment. The above goals and plan of care were discussed and agreed upon by patient/family. SUBJECTIVE: L TKA 36 days ago; discharged from [facility] last Thursday; presents on FWW today (no AD prior to surgery). Fall last week, doesn't know how she fell. Fell backwards on back getting yogurt out of fridge, assisted to upright, no injury. No RTW date yet. Was able to get into tub shower today, took her time. Took pain pills prior to visit today. Doing home health PT exercises 1x a day. Patient Goals: Walk unassisted; return to work. Functional Limitations: walking in the community, stair negotiation, squatting, physical activities, working ((Also, Laying on L Side)) Prior Level of Function: Independent without limitations Relevant History Past Relevant Medical Conditions: Per review with patient no issues were identified, Comments Relevant Medical Conditions Comments: TIA Stroke. Past Relevant Surgical Conditions: Total Knee Replacement-Right, Comments Relevant Surgical Conditions Comments: About 3 Years Ago. 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 Home Environment Patient Lives With: Spouse Assistance Available: PRN Intake Information: Prescription present Previous Treatment: Pain meds , Ice (Leg Elevated/Ice Man.) Falls Interview: No positive findings with falls interview Pain: Pain Pain Level: 2 Pain Location: Knee - Left Description: Aching Frequency: Continuous Post Treatment Pain Post Treatment Pain Level: No Change PROMIS Scales 03/09/2024 Higher is Better Phys Func - Score 38 (moderate dysfunction) Phys Func - Percentile 12 Self-Eff Symptom - Score 42 (Average) Self-Eff Symptom - Percentile 21 T-scores: mean of general population = 50. 5 points is clinically meaningfully difference Percentiles provide an indication of how the patient's score ranks in relation to the general population. Higher percentile rankings indicate better function/quality of life. 50th percentile is the average of the general population and indicates half of respondents had a worse score. OBJECTIVE MEASURES WITH LEVEL OF FUNCTION: Knee Observations L Knee Presents with: Incision, Swelling L Swelling: Diffuse, moderate, appropriate post-op appearance. L Incision: Incisions demo appropriate healing, clean, no-drainage, redness or warmth. No other clinical signs of infection. LE AROM L Knee Extension: -15 Degrees L Knee Flexion: 95 Degrees (AAROM w/ strap.) LE PROM L Knee Extension: -12 Degrees L Knee Flexion: 100 Degrees LE Joint Mobility R Patellar Mobility: WNL L Patellar Mobility: WNL LE Strength R LE Strength: Grossly 5/5 L LE Strength: L SLR: Can lift the leg slightly off the table, leg bent in flexion due to current motion status. (Discontinued from HEP for now). Other strength not formally assess due to acuteness of post-op status. Gait Weight Bearing Status: FWB Gait: Independent Gait Device: Wheeled Walker Gait Observation: Slow Farheen, step-to pattern within FWW. Decreased Knee Ext during L Stance Time. Stairs: Ran out of time to assess; will assess at a later date. Education: Education Learning Preferences: Demonstration, Explanation, Performance Barriers: None Learning/educational needs: Procedure / Surgery, Health promotion, Safety, Home exercise program, Plan of Care, Gait Training Education Provided: Yes, see treatment interventions for education provided Education Provided To: Patient, Family Education Mode/Type: Demonstration, Explanation/Discussion, Performance Response to Education/Teach Back: States/Identifies TREATMENT: PT Treatment Interventions: Therapeutic Exercise, Self-Snf Management Evaluation Therapeutic Exercise: 1: *L Quad Set: 1x10, 5-sec holds. (Prop under ankle.) 2: *L Heel Slides: 1x10 AAROM, 1-sec hold at end. 3: *L SAQ: 1x10. 4: *L LAQ: 1x10. 5: *Supine LLLD Ext Stretch: x3 Min. 6: *Supine Glute Squeeze: 1x10, 5-10Sec. 7: Discussed exam findings; spent time educating on and discussed in detail proper execution of HEP. Skilled Intervention: Patient was educated in proper exercise technique and purpose for exercises. Reviewed and educated patient on additions/changes for home exercise program as above (*). Skilled judgment was used in selection of appropriate interventions. Provided written instruction for home exercise program to facilitate proper performance and compliance. Correct performance of therapeutic exercises was facilitated with verbal, visual, and tactile cuing. Patient education as noted. Self-Snf Management: 1: *Spent time discussing with patient and spouse why a pillow/prop/object should NOT be placed under the involved knee during resting. Discussed rationale behind this. Also discussed not letting the LLE turn into Hip ER during supine resting, discussed ways to limit/avoid this. 2: *Discussed proper healing timelines; discussed also the importance of regaining quad function, knee extension and flexion ROM. 3: *Direct education to pt. and spouse on reviewing plan of care, prognosis, HEP and importance of exercises in helping patient reach her goals. Skilled Intervention: Skilled judgment in the selection of proper modification for activity of daily living/home management based on clinical presentation, deficits, and needs. Billing * Evaluation Low Complexity: 1 Unit Therapeutic Exercise Treatment Minutes: 15 Self-Care/Home Management Treatment Minutes: 10 Skilled Treatment Time Minutes (timed and untimed codes): 47 Total Session Time (minutes): 47 Session Start Time : 1045 Session Stop Time : 1132 Sky Alfaro PT documented in this encounter [facility] 03-03-2024 Miscellaneous Notes SITUATION: spouse present during today's visit. patient reports the following since the last homecare visit: medications/allergies--no changes, no fall. patient reports that she is in pain today. Staes that she sat for 3 hours yesterday to get her nails done and apparently that was too much. Pt also notes that she has not taken pain med ssince 3am. i guess i fell asleep and forgot BACKGROUND: Diagnoses (reason for Home Care): LTKR Weight Bearing/Precaution Changes: no changes ASSESSMENT: Focus of visit: ther ex, gait, transfers, ROM Still leaning too much on the walker with a moderate antalgic limp. Cues to belt picker her feet ROM 8-103* Physical therapy discharged: goals achieved. Functional performance at discharge - bed mobility independent, transfers independent, ambulation independent and stairs independent. Plan of care, goals, and discharge reviewed and agreed upon with patient and/or caregiver. RECOMMENDATION: Patient discharged from home health services. Instructions to include:begin outpatient therapy on 03/09 See intervention summary for intervention/education details. documented in this encounter [facility] 03-03-2024 Patient's home Note SITUATION: spouse present during today's visit. patient reports the following since the last homecare visit: medications/allergies--no changes, no fall. patient reports that she is in pain today. Staes that she sat for 3 hours yesterday to get her nails done and apparently that was too much. Pt also notes that she has not taken pain med ssince 3am. i guess i fell asleep and forgot BACKGROUND: Diagnoses (reason for Home Care): LTKR Weight Bearing/Precaution Changes: no changes ASSESSMENT: Focus of visit: ther ex, gait, transfers, ROM Still leaning too much on the walker with a moderate antalgic limp. Cues to belt picker her feet ROM 8-103* Physical therapy discharged: goals achieved. Functional performance at discharge - bed mobility independent, transfers independent, ambulation independent and stairs independent. Plan of care, goals, and discharge reviewed and agreed upon with patient and/or caregiver. RECOMMENDATION: Patient discharged from home health services. Instructions to include:begin outpatient therapy on 03/09 See intervention summary for intervention/education details. [facility] Work Phone: 02-29-2024 Telephone encounter Note PDMP website reviewed and validated. Patient has been compliant and taking medication appropriately without evidence of suspicious activity. Will refill Rx. Marcello Lloyd PA-C February 29, 2024 3:59 PM [facility] 02-29-2024 Miscellaneous Notes PDMP website reviewed and validated. Patient has been compliant and taking medication appropriately without evidence of suspicious activity. Will refill Rx. Marcello Lloyd PA-C February 29, 2024 3:59 PM Patient calling for a refill on her oxycodone RX pended documented in this encounter [facility] 02-29-2024 Telephone encounter Note Patient calling for a refill on her oxycodone RX pended [facility] 02-29-2024 Miscellaneous Notes SITUATION: spouse present during today's visit. patient reports the following since the last homecare visit: medications/allergies--no changes, no fall. patient reports she called this morning for pain med refill. [facility] the [facility]. Did good getting out of house. BACKGROUND: Diagnoses (reason for Home Care): LTKR Weight Bearing/Precaution Changes: no changes ASSESSMENT: Focus of visit Issued NOMNC. performd and progressed HEP. Gait training w/ww, patient declined trying cane. Continues to have antalgic gait pattern but is able to correct it w/ cues. difficulty maintaining . AAROM 0-102 Plan of care, goals, and visit frequency reviewed and agreed upon with patient and/or caregiver. Current Discharge Plan: outpatient rehab Anticipate discharge by 03/03/24 RECOMMENDATION: Next visit to focus on PT to see for DC See intervention summary for intervention/education details. documented in this encounter [facility] 02-29-2024 Patient's home Note SITUATION: spouse present during today's visit. patient reports the following since the last homecare visit: medications/allergies--no changes, no fall. patient reports she called this morning for pain med refill. Went to [facility] over the weekenf. Did good getting out of house. BACKGROUND: Diagnoses (reason for Home Care): LTKR Weight Bearing/Precaution Changes: no changes ASSESSMENT: Focus of visit Issued NOMNC. performd and progressed HEP. Gait training w/ww, patient declined trying cane. Continues to have antalgic gait pattern but is able to correct it w/ cues. difficulty maintaining . AAROM 0-102 Plan of care, goals, and visit frequency reviewed and agreed upon with patient and/or caregiver. Current Discharge Plan: outpatient rehab Anticipate discharge by 03/03/24 RECOMMENDATION: Next visit to focus on PT to see for DC See intervention summary for intervention/education details. [facility] Work Phone: 02-29-2024 Telephone encounter Note Prescription Refill Information The patient has been identified by name and date of : Yes Caregiver verified no other encounters exist for this prescription request: Yes Caregiver confirmed with patient/requestor that no other refills are due, in the near future, with this provider at this time: Yes The last office visit in the department: 02/15/24 Does the patient have a future office visit with this provider/department: Yes Requested Prescriptions Pending Prescriptions Disp Refills acetaminophen (TYLENOL) 500 mg tablet 90 tablet 0 Sig: Take 2 tablets by mouth every 8 hours as needed for pain. oxyCODONE IR (ROXICODONE) 5 mg Dionicio Agarwal February 29, 2024 8:03 AM [facility] 02-29-2024 Miscellaneous Notes Prescription Refill Information The patient has been identified by name and date of : Yes Caregiver verified no other encounters exist for this prescription request: Yes Caregiver confirmed with patient/requestor that no other refills are due, in the near future, with this provider at this time: Yes The last office visit in the department: 02/15/24 Does the patient have a future office visit with this provider/department: Yes Requested Prescriptions Pending Prescriptions Disp Refills acetaminophen (TYLENOL) 500 mg tablet 90 tablet 0 Sig: Take 2 tablets by mouth every 8 hours as needed for pain. oxyCODONE IR (ROXICODONE) 5 mg Dionicio Agarwal February 29, 2024 8:03 AM documented in this encounter [facility] 02-25-2024 Miscellaneous Notes SITUATION: only patient present during today's visit. patient reports the following since the last homecare visit: medications/allergies--no changes, no fall. patient reports knee is very sore and stiff . BACKGROUND: Diagnoses (reason for Home Care): ltkr Weight Bearing/Precaution Changes: no changes ASSESSMENT: Focus of visit progressed standing exercises for HEP. AAROM 8-100. gait training w/ww for houehold distances, patient declined trting cane today. Does not feel ready or safe. reported decreased stiffness after therapy today Plan of care, goals, and visit frequency reviewed and agreed upon with patient and/or caregiver. Current Discharge Plan: outpatient rehab Anticipate discharge by 03/03/24 RECOMMENDATION: Next visit to focus on NOMNC See intervention summary for intervention/education details. documented in this encounter [facility] 02-25-2024 Patient's home Note SITUATION: only patient present during today's visit. patient reports the following since the last homecare visit: medications/allergies--no changes, no fall. patient reports knee is very sore and stiff . BACKGROUND: Diagnoses (reason for Home Care): ltkr Weight Bearing/Precaution Changes: no changes ASSESSMENT: Focus of visit progressed standing exercises for HEP. AAROM 8-100. gait training w/ww for houehold distances, patient declined trting cane today. Does not feel ready or safe. reported decreased stiffness after therapy today Plan of care, goals, and visit frequency reviewed and agreed upon with patient and/or caregiver. Current Discharge Plan: outpatient rehab Anticipate discharge by 03/03/24 RECOMMENDATION: Next visit to focus on NOMNC See intervention summary for intervention/education details. [facility] Work Phone: 02-23-2024 Miscellaneous Notes SITUATION: only patient present during today's visit. patient reports the following since the last homecare visit: medications/allergies--no changes, no fall. patient reports she is still very fatigued but knee is feeling alittle better. . BACKGROUND: Diagnoses (reason for Home Care): LTKR Weight Bearing/Precaution Changes: no changes ASSESSMENT: Focus of visit progression of strength and ROM exercises for HEP/\AAROM 100 . encouraged patient to increase her up times througghout the day to improve endurance. Patient declined trying cane ambulation today Plan of care, goals, and visit frequency reviewed and agreed upon with patient and/or caregiver. Current Discharge Plan: outpatient rehab Anticipate discharge by 03/03/24 RECOMMENDATION: Next visit to focus on increasing ambulation times/distances and possibly try cane training See intervention summary for intervention/education details. documented in this encounter [facility] 02-23-2024 Patient's home Note SITUATION: only patient present during today's visit. patient reports the following since the last homecare visit: medications/allergies--no changes, no fall. patient reports she is still very fatigued but knee is feeling alittle better. . BACKGROUND: Diagnoses (reason for Home Care): LTKR Weight Bearing/Precaution Changes: no changes ASSESSMENT: Focus of visit progression of strength and ROM exercises for HEP/\AAROM 100 . encouraged patient to increase her up times througghout the day to improve endurance. Patient declined trying cane ambulation today Plan of care, goals, and visit frequency reviewed and agreed upon with patient and/or caregiver. Current Discharge Plan: outpatient rehab Anticipate discharge by 03/03/24 RECOMMENDATION: Next visit to focus on increasing ambulation times/distances and possibly try cane training See intervention summary for intervention/education details. [facility] Work Phone: 02-19-2024 Telephone encounter Note Pt only seen for 2 visits this week due to illness. Pt cancelled 8/ visit and requested not to reschedule the visit [facility] Work Phone: 02-19-2024 Miscellaneous Notes Pt only seen for 2 visits this week due to illness. Pt cancelled 02/16 visit and requested not to reschedule the visit documented in this encounter [facility] 02-19-2024 Telephone encounter Note [facility] Caden wanted to set up OP PT herself and then she forgot so we called today and they can't get her in until the week of the . Is it ok if we continue home care for 2 visits the week of the to bridge the gap?? Thanks Jeffry PT [facility] Work Phone: 02-19-2024 Miscellaneous Notes [facility] Caden wanted to set up OP PT herself and then she forgot so we called today and they can't get her in until the week of the . Is it ok if we continue home care for 2 visits the week of the to bridge the gap?? Thanks Jeffry PT documented in this encounter [facility] 02-19-2024 Miscellaneous Notes SITUATION: only patient present during today's visit. patient reports the following since the last homecare visit: medications/allergies--no changes, no fall. patient reports she overslept and forgot i was coming. She cancelled our visit on 02/16 due to being ill . She also reports that she forgot to call and schedule OP PT . Made call to [facility] to set up appt at this visit 03/09/24 BACKGROUND: Diagnoses (reason for Home Care): LTKR Weight Bearing/Precaution Changes: no changes ASSESSMENT: Focus of visit performed seated and supine ROM and strength exercises for HEP. Gait training w/ww, stair training in home. AROM- 90 [id number] Plan of care, goals, and visit frequency reviewed and agreed upon with patient and/or caregiver. Current Discharge Plan: outpatient rehab Anticipate discharge by 02/24/24- will request order 2w1 for week of 02/28 to bridge the gap RECOMMENDATION: Next visit to focus on schedule , ther ex, gait, ROM See intervention summary for intervention/education details. documented in this encounter [facility] 02-19-2024 Patient's home Note SITUATION: only patient present during today's visit. patient reports the following since the last homecare visit: medications/allergies--no changes, no fall. patient reports she overslept and forgot i was coming. She cancelled our visit on 02/16 due to being ill . She also reports that she forgot to call and schedule OP PT . Made call to A[facility] Spencer to set up appt at this visit 03/09/24 BACKGROUND: Diagnoses (reason for Home Care): LTKR Weight Bearing/Precaution Changes: no changes ASSESSMENT: Focus of visit performed seated and supine ROM and strength exercises for HEP. Gait training w/ww, stair training in home. AROM- 90 [id number] Plan of care, goals, and visit frequency reviewed and agreed upon with patient and/or caregiver. Current Discharge Plan: outpatient rehab Anticipate discharge by 02/24/24- will request order 2w1 for week of 02/28 to bridge the gap RECOMMENDATION: Next visit to focus on schedule , ther ex, gait, ROM See intervention summary for intervention/education details. [facility] Work Phone: 02-15-2024 Note HNO ID: [id number] Author: MARCELLO LLOYD PA-C Service: ? Author Type: Physician Kitchen Clerk Type: Progress Notes Filed: 02/15/2024 14:28 Note Text: Post-op Office Visit Caden Llamas 69 year old February 15, 2024 1:22 PM Surgery Date: 02/02/2024 History: Caden Llamas is now 2 weeks out from robotic assisted left TKA. Post-operative course has been without complication. No readmissions. The patient was discharged from [facility] to home with home health care on 02/03/2024. Subjective: Patient reports pain is not well controlled today. The patient states she ran out of her oxycodone recently. She did not know to contact our office for pain medicine refills. She states her pain was well controlled when taking the oxycodone. She also reports intermittent muscle spasms in operative leg; requesting muscle relaxer. She is using walker ambulatory aid. Patients rates her condition as slowly improving. Reports compliance with DVT ppx. Participating in home PT. Objective: Left knee: Patient is in wheelchair Incision well-approximated, no drainage, well-healing. Suture tails trimmed today. Knee ROM 10 - 80 degrees; limited due to inadequate pain control Distally DP/PT palpable Distally SILT S/S/SP/DP/T intact at baseline Distally DF/PF motor intact at baseline Negative olayinka/calf tenderness Xrays: Well-positioned total knee replacement in appropriate alignment with no evidence of loosening Assessment and Plan: 69 year old female 2 weeks status post robotic assisted left total knee arthroplasty - PDMP website reviewed and validated. Patient has been compliant and taking medication appropriately without evidence of suspicious activity. Will refill Rx and send in muscle relaxer. Patient understands not to take the muscle relaxer and oxycodone together due to the sedating effects. - continue ice, rest, and use of non-narcotic analgesia as needed - reviewed antibiotic prophylactic protocols - discussed home exercises and therapy. Emphasis on knee extension - continue ASA DVT prophylaxis for 4 weeks total - WBAT on operative extremity - discussed driving requirement: 4 weeks post-op, off narcotic pain medication, adequate brake time - follow up in 4 weeks for repeat clinical evaluation with Dr. Bradley Normal post-operative course discussed with patient. Patient reassured and supported. All questions answered. Lm Lloyd PA-C Orthopaedic Surgery [facility] 02-15-2024 History of Present illness Narrative Post-op Office Visit Caden Llamas 69 year old February 15, 2024 1:22 PM Surgery Date: 02/02/2024 History: Caden Llamas is now 2 weeks out from robotic assisted left TKA. Post-operative course has been without complication. No readmissions. The patient was discharged from [facility] to home with home health care on 02/03/2024. Subjective: Patient reports pain is not well controlled today. The patient states she ran out of her oxycodone recently. She did not know to contact our office for pain medicine refills. She states her pain was well controlled when taking the oxycodone. She also reports intermittent muscle spasms in operative leg; requesting muscle relaxer. She is using walker ambulatory aid. Patients rates her condition as slowly improving. Reports compliance with DVT ppx. Participating in home PT. Objective: Left knee: Patient is in wheelchair Incision well-approximated, no drainage, well-healing. Suture tails trimmed today. Knee ROM 10 - 80 degrees; limited due to inadequate pain control Distally DP/PT palpable Distally SILT S/S/SP/DP/T intact at baseline Distally DF/PF motor intact at baseline Negative olayinka/calf tenderness Xrays: Well-positioned total knee replacement in appropriate alignment with no evidence of loosening Assessment and Plan: 69 year old female 2 weeks status post robotic assisted left total [facility] arthroplasty [facility]. Patient has been compliant and taking medication appropriately without evidence of suspicious activity. Will refill Rx and send in muscle relaxer. Patient understands not to take the muscle relaxer and oxycodone together due to the sedating effects. - continue ice, rest, and use of non-narcotic analgesia as needed - reviewed antibiotic prophylactic protocols - discussed home exercises and therapy. Emphasis on knee extension - continue ASA DVT prophylaxis for 4 weeks total - WBAT on operative extremity - discussed driving requirement: 4 weeks post-op, off narcotic pain medication, adequate brake time - follow up in 4 weeks for repeat clinical evaluation with Dr. Bradley Normal post-operative course discussed with patient. Patient reassured and supported. All questions answered. Lm Lloyd PA-C Orthopaedic Surgery documented in this encounter [facility] 02-15-2024 History of Present illness Narrative Radiology Service Progress Note PATIENT NAME: Caden Llamas DATE OF SERVICE: February 15, 2024 TIME: 2:01 PM PATIENT IDENTITY VERIFICATION COMPLETED USING TWO (2) IDENTIFIERS: Name and Date of confirmed by patient verbally. FALL SCREENING: Has the patient had 2 falls in the last year or 1 fall with injury or currently using an Ambulatory Assistive Device (Walker, Cane, Wheelchair, Crutches, etc.)? No PATIENT GENDER DATA: Female. status: : No status: NO. PATIENT RELEVANT IMPLANT DATA REVIEWED: Not Applicable PATIENT PRESENTS WITH AN IMPLANTABLE OR ATTACHED PLASTERER FOREMAN: No RADIOLOGY DEPARTMENT: General X-ray: Exam(s) Completed: Lower Extremity X-Ray(s): Knee, AP / Lat / Merchant Left and Wt. Bearing PERIPHERAL IV DATA: Not applicable SIGNED BY: Ruby Sarah February 15, 2024 2:01 PM documented in this encounter [facility] 02-15-2024 Note HNO ID: [id number] Author: CANDI SR Tech Service: Radiology Author Type: Veterans' Counselor Type: Progress Notes Filed: 02/15/2024 14:01 Note Text: Radiology Service Progress Note PATIENT NAME: Caden Llamas DATE OF SERVICE: February 15, 2024 TIME: 2:01 PM PATIENT IDENTITY VERIFICATION COMPLETED USING TWO (2) IDENTIFIERS: Name and Date of confirmed by patient verbally. FALL SCREENING: Has the patient had 2 falls in the last year or 1 fall with injury or currently using an Ambulatory Assistive Device (Walker, Cane, Wheelchair, Crutches, etc.)? No PATIENT GENDER DATA: Female. status: : No status: NO. PATIENT RELEVANT IMPLANT DATA REVIEWED: Not Applicable PATIENT PRESENTS WITH AN IMPLANTABLE OR ATTACHED PLASTERER FOREMAN: No RADIOLOGY DEPARTMENT: General X-ray: Exam(s) Completed: Lower Extremity X-Ray(s): Knee, AP / Lat / Merchant Left and Wt. Bearing PERIPHERAL IV DATA: Not applicable SIGNED BY: Ruby Sarah February 15, 2024 2:01 PM [facility] 02-15-2024 Miscellaneous Notes SITUATION: only patient present during today's visit. patient reports the following since the last homecare visit: medications/allergies--no changes, no fall. patient reports she is is in so much pain , bu t reports that she is trying to ration them so she does not run out. Explained that they will get her another rx . Also asked if she picked up her new rx for amlodipine , she was not aware that she had a new one. [facility] number. She will pick them up today . states that she will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 Factors Obesity High Risk High: BMI > 40 Moderate: BMI 30-40 Normal: BMI < 30 Diabetes Moderate Risk High: A1C > 8 Moderate: A1C 7-8 Normal: A1C < 7 Hx of DVT / PE High Risk High: dx of DVT / PE Normal: no dx of DVT / PE Smoking normal High: Current smoker Normal: Non smoker Narcotics Use normal High:NarxCare >=300 Moderate: 100-299 Normal: 0-99 Depression Unknown Risk High: P (more content not included)... [facility] 02-04-2024 History of Present illness Narrative Images from the original note were not included. CONSULT ORTHOPAEDIC: KNEE PRIMARY CARE PHYSICIAN: Moises Malcolm APRN.HUMAN MACHINE INTERFACE ENGINEER REFERRING PROVIDER: No referring provider defined for this encounter. ASSESSMENT & PLAN Impression: Left Knee Severe Degenerative Osteoarthritis, Primary Diagnoses: (M17.12) Primary osteoarthritis of left knee (primary encounter diagnosis) Based upon the evaluation today and after discussions with Caden Llamas, Caden Llamas has significant, worsening pain at the knee. This pain is increased with activity and weight bearing, and interferes with activities of daily living. These symptoms have continued despite a number of non-surgical measures, including a trial of oral pain medication and attempted physical therapy/ structured exercise program and/or use of an assistive device/ bracing (for at least 12 weeks unless the patient was unable to tolerate these measures as discussed above). At this point, the patient will not benefit from further PT due to the severity of their condition. The patient's physical examination is consistent with limitations in range of motion, pain with passive range of motion, crepitus, and effusion/ synovitis. These examination findings are corroborated by imaging findings of joint space narrowing, periarticular osteophyte formation, and subchondral sclerosis. The patient has been treated by the practice and all reasonable treatments have failed to control the disease, which causes significant pain and limits activities of daily living. The patient has failed conservative treatment and joint replacement surgery was discussed and agreed upon by both provider and patient. We will proceed with surgical management to improve function and relieve pain refractory to non-surgical measures. Left Primary Total Knee Arthroplasty as evidenced by progressive symptoms. Progressive Symptoms Include: Pain impacting sleep or causing fatigue Pain impacting work Pain worsened by weight bearing Pain effecting living situation Pain limiting ability to stay fit and healthy Unable to ambulate 2 blocks without significant pain and dysfunction . Surgery Details Date and Location: At [facility] on date to be determined. Implants: Fernando Robotic: Yes Predicted LOS: 2 days (Inpatient candidate) Informed consent obtained in the office today. The risks and benefits of surgery were discussed at length including but not limited to the risks of infection, bleeding, nerve or blood vessel injury, deep venous thrombosis, pulmonary embolism, arthrofibrosis, reflex sympathetic dystrophy, , paralysis, knee or patellar dislocation, extensor mechanism injury, bone fracture, component loosening or failure requiring re-operation or amputation. Informed consent was obtained and the patient was scheduled for surgery. We also discussed fixation strategies including cement and cementless fixation and advantages and disadvantages of each. We discussed the details of the surgery as well as rehabilitation. All questions were answered, and the patient wishes to proceed with surgery.. The patient has been ordered: Office Visit on 01/08/24 PARKING FOR HANDICAPPED cyclobenzaprine (FLEXERIL) 10 mg tablet No orders placed today. CONSULTS: IMPACT/PACE Consult for preoperative clearance. Total Joint Arthroplasty: Risk Calculator Caden Llamas has a 23.83% chance of NOT returning home at discharge for a Primary total Knee replacement. Caden's estimated Length of Stay is 2 days (Inpatient candidate). Caden's 30 day chance of readmission is 4.46%. Readmission Probability 4.46 % (within 30 days following surgery) Estimated LOS 2 days Discharge Disposition Probability D/C to Home 76.17 % D/C to SNF 23.83 % These calculations are based on the following factors: - 69 years of age - sex is not male - BMI of 40.77 kg/m2 - NarxCare score of 201 - 1 hospitalizations in the last 12 months - no history of heart disease - history of diabetes - no history of COPD - history of anemia - preoperative ambulation: impaired community distances - 5 step(s) to enter home - bed location is NOT on the first floor - bath location is NOT on the first floor - caregiver is consistent - home is not more than 150 miles away - PROMIS-10 Mental Health T score 41-49 - Marital status: Risk Factors for Total Knee Arthroplasty (TKA) Major Risk Factors Obesity High Risk High: BMI > 40 Moderate: BMI 30-40 Normal: BMI < 30 Diabetes Moderate Risk High: A1C > 8 Moderate: A1C 7-8 Normal: A1C < 7 Hx of DVT / PE High Risk High: dx of DVT / PE Normal: no dx of DVT / PE Smoking normal High: Current smoker Normal: Non smoker Narcotics Use normal High:NarxCare >=300 Moderate: 100-299 Normal: 0-99 Depression Unknown Risk High: PHQ-9 >14 Moderate: PHQ-9 5-14 Normal: PHQ-9 < 5 Area Deprivation Index (GLENN) Moderate Risk High: GLENN Score > 75 Moderate: GLENN 50-75 Normal: GLENN < 50 Obesity: Weight management and obesity medicine (bariatric) program recommended BMI Readings from Last 3 Encounters: 02/02/24 : 40.77 kg/m 01/27/24 : 40.60 kg/m 12/08/23 : 42.02 kg/m Diabetes: Well controlled - Caden has been diagnosed with Type 2 Diabetes. Her last Hemoglobin A1C was 5.9 (10/26/2023). Pt is followed by Moises Malcolm for Type 2 Diabetes - last seen on 12/08/2023. Area Deprivation Index (GLENN) 04/16/2023 01/27/2024 GLENN Score National Score 67 55 Patient Health Questionnaire (PHQ-9) No data to display (0-4) minimal depression, (5-9) mild depression, (10-14) moderate depression, (15-19) moderately severe depression, (20-27) severe depression Bone Density Risk Screen Caden Llamas is at risk for bone loss and has not had a bone densitometry scan in the last 2 years (date of last scan: None on file). Recommend a bone densitometry scan and if indicated on the bone density results, a consult to a bone health specialist (Rheumatology, Endocrinology, or Women's Health) for bone assessment. Risk Factors: Use of Proton Pump Inhibitors History of falls Dx of Chronic Kidney Disease (CKD) Prednisone or use of systemic steroids Additional Risk Factors Anemia Hemoglobin Date Value 02/03/2024 9.6 g/dL 02/02/2024 9.9 g/dL 06/01/2020 11.1 G/DL 05/16/2019 10.8 g/dL Chronic kidney disease eGFR (no units) Date Value 06/06/2013 52.98 03/04/2013 >60 Estimated GFR Date Value 06/01/2020 57 12/20/2018 58 ML/MIN eGFR- (no units) Date Value 06/01/2020 Greater than 60 05/16/2019 >60 Obstructive Sleep Apnea (RUTH) Coagulation Latest Ref Rng & Units 09/19/2013 05/10/2015 07/23/2016 Coag/Hyper Coag Labs APTT 23.0 - 32.4 sec 24.6 26.5 39.7 PROTHROMBIN TIME 9.3 - 11.9 sec 9.8 9.8 PT INR 0.8 - 1.2 1.1 PT Sec 8.4 - 13.0 sec 11.9 INR 0.92 0.92 Latest Ref Rng & Units 01/27/2024 02/02/2024 02/03/2024 Hemoglobin and Platelets Hemoglobin 11.5 - 15.5 g/dL 11.4 9.9 9.6 Platelet Count 150 - 400 k/uL 283 261 Past Orthopaedic Surgery: Caden had knee surgery on 02/02/2024 with Makayla Bradley. Malnutrition: 10/27/2018 02/02/2024 Malnutrition Screening Tool (MST) Lost Weight Recently Without Trying? If Yes, Amount of Weight Loss(lbs) 0:No 1:Yes (2-13lbs) Eating Poorly Because of a Decreased Appetite 0:No 1:Yes Weight Loss Score (Calculated) 0 1 Appetite Score (Calculated) 0 1 Total MST Score (Calculated) 0 2 Consult to Nutrition Therapy recommended prior to surgery. ACTIVE PROBLEM LIST Climacteric Hypertension Hyperlipidemia With Target Low Density Lipoprotein (Ldl) Cholesterol Less Than 100 Mg/Dl Arthritis of Right Knee Urinary Incontinence Lower Urinary Tract Symptoms (Luts) H/O Brain Aneurysm H/O Stroke (HCC) Asthma Diabetes Mellitus Type 2, Uncomplicated (Hcc) Peripheral Neuropathy Weiss (Dyspnea On Exertion) Chest Pain of Uncertain Etiology Stage 2 Chronic Kidney Disease Anemia Anxiety Morbidly Obese (Hcc) Ruth (Obstructive Sleep Apnea) S/P Total Knee Replacement Post-Traumatic Osteoarthritis of Right Shoulder Rotator Cuff Syndrome of Left Shoulder Atrial Fibrillation (Hcc) Obesity, Class III, BMI >= 40 S/P Total Knee Arthroplasty, Left SUBJECTIVE CHIEF COMPLAINT: Knee Pain HPI: Caden Llamas is a 69 year old patient with the presenting complaint of Follow Up of the Left Knee. 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 The problem began limiting activities 7-12 months ago. Caden reports a current pain level of 10 (Knee-Left). She describes the pain as Throbbing. The pain is Continuous . Interventions tried include Reposition. FALL RISK: Caden is at risk for falls. She has had either 2 falls in the last year or at least 1 fall with injury and/or is currently using an ambulatory assitive device (walker, cane, wheelchair, crutches, etc.) The following interventions were put in place to prevent falls this visit: Placed Falling Man Sign on Door PROMIS Physical Function Score No data to display FUNCTIONAL STATUS: Walk indoors, such as around the house (1.75 METs) Take care of self, that is eating, dressing, bathing, using the toilet (2.75 METs) PREVIOUS TREATMENTS: Most recent knee injection: Large Joint Arthro/Inj: L knee joint (injected on 11/30/2023 by Makayla Bradley) Last Knee Surgery: 02/02/2024 with Makayla Bradley Past anti-inflammatory medications (not necessarily for this reason for visit): betamethasone acetate,sod phos, celecoxib, dexamethasone sodium phosphate, ketorolac tromethamine, meloxicam, methylprednisolone, methylprednisolone acetate, naproxen, prednisone Medical Treatments: Steroid Injections Left Knee Physical Therapy: Activities Modified REVIEW OF SYSTEMS: PAIN ASSESSMENT: See HPI. MUSCULOSKELETAL: See HPI. 02/02/2024 Malnutrition Screening Tool (MST) Lost Weight Recently Without Trying? If Yes, Amount of Weight Loss(lbs) 1:Yes (2-13lbs) Eating Poorly Because of a Decreased Appetite 1:Yes Weight Loss Score (Calculated) 1 Appetite Score (Calculated) 1 Total MST Score (Calculated) 2 PAST MEDICAL HISTORY Diagnosis Date Active asthma Anxiety Arthritis of knee, left 10/21/2012 Brain aneurysm Diabetes mellitus type 2, uncomplicated (HCC) Fibroids Hyperlipidemia LDL goal < 100 02/25/2013 Hypertension Morbidly obese (HCC) 10/20/2018 RUTH (obstructive sleep apnea) 10/20/2018 Peripheral neuropathy 10/20/2018 Pulmonary embolism (HCC) 12/13/2012 Right shoulder injury 10/21/2012 Stroke (HCC) PAST SURGICAL HISTORY Procedure Laterality Date APPENDECTOMY ARTHRP KNE CONDYLE&PLATU MEDIAL&LAT COMPARTMENTS Right 10/27/2018 Knee replacement, total BRAIN SURGERY HX brain aneurysm coiled CARDIAC CATH 2019 CHOLECYSTECTOMY Cholecystectomy SHOULDER SURGERY HX Right VAGINAL HYSTERECTOMY UTERUS 250 GM/< Hysterectomy, vaginal, Fibroids FAMILY HISTORY Problem Relation Age of Onset Cancer Mother Liver Diabetes Mother Hypertension Mother Lipids Mother Heart Father [place] Psychiatry Sister Hypertension Sister Diabetes Sister Social History Tobacco Use Smoking status: Never Smokeless tobacco: Never Tobacco comments: Smoked as a teenager Vaping Use Vaping Use: Never used Substance Use Topics Alcohol use: No Drug use: No ALLERGIES: Cats, Latex, and Lisinopril MEDICATIONS: acetaminophen (TYLENOL) 500 mg tablet Take 2 tablets by mouth every 8 hours as needed for pain. ascorbic acid, vitamin C, (VITAMIN C) 500 mg tablet Take 1 tablet by mouth two times a day with meals for 27 doses. aspirin, enteric coated (ASPIRIN, ENTERIC COATED) 81 mg EC tablet Take 1 tablet by mouth two times a day for 28 days. docusate sodium (COLACE) 100 mg capsule Take 1 capsule by mouth two times a day as needed for constipation. oxyCODONE IR (ROXICODONE) 5 mg immediate release tablet Take 1-2 tablets by mouth every 6 hours as needed for pain for up to 7 days. polyethylene glycol 3350 (MIRALAX) 17 gram/dose powder Take 17 g by mouth once daily as needed for constipation for up to 10 days. Dissolve dose in 4 - 8 ounces of liquid and take as directed. omeprazole (PRILOSEC) 40 mg capsule Take 1 capsule by mouth once daily. gabapentin (NEURONTIN) 800 mg tablet Take 1 tablet by mouth three times a day for 180 days. amLODIPine (NORVASC) 5 mg tablet Take 1 tablet by mouth once daily. carvedilol (COREG) 12.5 mg tablet 1 tablet two times a day with meals. traZODone (DESYREL) 50 mg tablet Take 1 tablet by mouth daily at bedtime. amLODIPine (NORVASC) 2.5 mg tablet take 1 tablet by mouth every day ergocalciferol 50,000 unit capsule (VITAMIN D2, DRISDOL) Take 1 capsule by mouth one time a week. meclizine (ANTIVERT) 25 mg tab Take 25 mg by mouth. albuterol HFA (PROAIR HFA) 90 mcg/actuation inhaler Inhale 1 Puff as instructed every 4 hours as needed. ferrous sulfate 325 mg (65 mg iron) tablet Take 325 mg by mouth daily with breakfast. CPAP OBJECTIVE PHYSICAL EXAM: There were no vitals taken for this visit. All other systems deferred. GENERAL: Obese HABITUS: Obese GAIT: Antalgic to the left KNEE EXAM: Left: Alignment: Varus deformity, Correctable Range of motion is 5 degrees in extension and 100 degrees of flexion. Extension Lag: < 10 degrees Pain with ROM: Yes Effusion: Mild Tender to the palpation of Medial joint line Pain with patellar compression: Yes Stability: Anterior/Posterior stable and Varus/Valgus not stable Hip Exam: flexion to 100+ degrees, full extension, internal/external rotation adequate, and no pain with log roll Neurovascular Status: Sensation Intact, Moves foot and ankle up & down, Moves toes up and down, 2+ dorsalis pedis, and negative homans sign DATA: She was last seen in orthopaedic clinic for her knee/leg on 01/08/2024 with Makayla Bradley. Most recent knee imaging was completed on 02/02/2024 (XR KNEE LIMITED 2V AP/LAT LEFT) . Attached is imaging for the order.The most recent knee injection was Large Joint Arthro/Inj: L knee joint, injected on 11/30/2023 by Makayla Bradley. Caden had knee surgery on 02/02/2024 with Makayla Bradley. Diagnostic tests reviewed for today's visit: Left knee X-Ray: Medial joint space noted to have severe degenerative changes, Lateral joint space noted to have moderate degenerative changes , Patellofemoral joint noted to have severe degenerative changes, and Bone on bone contact of the medial joint space(s) The following conditions were addressed during the office visit today: We discussed the need for a CT scan as part of the preoperative planning protocol for Yazmin robotic total knee arthroplasty SIGNATURE: Makayla Bradley MD PATIENT NAME: Caden Llamas DATE: February 04, 2024 TIME: 7:30 AM documented in this encounter [facility] 02-03-2024 Telephone encounter Note Date/Time: 02/03/2024 2:52 PM Spoke with jeffry/FRIEND @ phone #: [phone] - Preferred # for contact: [phone] Have you received help from a home care company in the last 60 days? NO Are you agreeable to [facility] services? YES What address will we be seeing you at? [address] [facility] [address] Do you have any upcoming appointments or things we need to schedule around? NO Do you have a teachable CG or can you manage your care independently? YES [facility] 02-03-2024 Miscellaneous Notes Date/Time: 02/03/2024 2:52 PM Spoke with jeffry/FRIEND @ phone #: [phone] - Preferred # for contact: [phone] Have you received help from a home care company in the last 60 days? NO Are you agreeable to HHC services? YES What address will we be seeing you at? [address] [place] [id number] Do you have any upcoming appointments or things we need to schedule around? NO Do you have a teachable CG or can you manage your care independently? YES documented in this encounter [facility] 02-03-2024 Note HNO ID: [id number] Author: ?, ?, ? Service: Pharmacy Author Type: ? Type: Plan of Care Filed: 02/03/2024 15:37 Note Text: PHARMACY BEDSIDE DELIVERY SERVICE Patient Name: Caden Llamas The marked outpatient medications were Filled at: [facility] and delivered to the patient's bedside to pharm p/u Medication List START taking these medications acetaminophen 500 mg tablet Commonly known as: TYLENOL Take 2 tablets by mouth every 8 hours as needed for pain. X aspirin, enteric coated 81 mg EC tablet Commonly known as: ASPIRIN, ENTERIC COATED Take 1 tablet by mouth two times a day for 28 days. docusate sodium 100 mg capsule Commonly known as: COLACE Take 1 capsule by mouth two times a day as needed for constipation. X oxyCODONE IR 5 mg immediate release tablet Commonly known as: ROXICODONE Take 1-2 tablets by mouth every 6 hours as needed for pain for up to 7 days. X polyethylene glycol 3350 17 gram/dose powder Commonly known as: MIRALAX Take 17 g by mouth once daily as needed for constipation for up to 10 days. Dissolve dose in 4 - 8 ounces of liquid and take as directed. VITAMIN C 500 mg tablet Generic drug: ascorbic acid (vitamin C) Take 1 tablet by mouth two times a day with meals for 27 doses. X CONTINUE taking these medications * amLODIPine 2.5 mg tablet Commonly known as: NORVASC take 1 tablet by mouth every day * amLODIPine 5 mg tablet Commonly known as: NORVASC Take 1 tablet by mouth once daily. carvedilol 12.5 mg tablet Commonly known as: COREG 1 tablet two times a day with meals. CPAP ergocalciferol (vitamin D2) 50,000 unit capsule Commonly known as: VITAMIN D2 Take 1 capsule by mouth one time a week. ferrous sulfate 325 mg (65 mg iron) tablet gabapentin 800 mg tablet Commonly known as: NEURONTIN Take 1 tablet by mouth three times a day for 180 days. meclizine 25 mg Tab Commonly known as: ANTIVERT omeprazole 40 mg capsule Commonly known as: PriLOSEC Take 1 capsule by mouth once daily. PROAIR HFA 90 mcg/actuation inhaler Generic drug: albuterol HFA traZODone 50 mg tablet Commonly known as: DESYREL Take 1 tablet by mouth daily at bedtime. * This list has 2 medication(s) that are the same as other medications prescribed for you. Read the directions carefully, and ask your doctor or other care provider to review them with you. You might also be taking other medications not listed above. If you have questions about any of your other medications, talk to the person who prescribed them or your Primary Care Provider. STOP taking these medications mupirocin 2 % ointment Commonly known as: JENELLE Jamison (Mill Platform Supervisor) PAGER: [phone] February 03, 2024 3:37 PM [facility] 02-03-2024 Note HNO ID: [id number] Author: MARCELLO LLOYD PA-C Service: Orthopaedic Surgery Author Type: Physician Kitchen Clerk Type: Progress Notes Filed: 02/03/2024 09:09 Note Text: POSTOP NOTE ORTHOPAEDIC SURGERY SERVICE DATE: 02/03/2024 SERVICE TIME: 7:40 AM IMPRESSION/PLAN: S/P Procedure(s) (LRB): ROBOTIC ASSISTED TOTAL KNEE ARTHROPLASTY (Left) on 02/02/2024 Physical Therapy evaluation WBAT LLE DVT prophylaxis: Intermittent pneumatic compression device (IPCD) and ASA 81 BID Pain control Case Management for discharge planning Plan of care discussed with: Provider, RN, Patient. Patient Active Hospital Problem List: Obesity, Class III, BMI >= 40 (02/02/2024) POST OPERATIVE COMPLICATIONS: Complicated by uneventful/none SUBJECTIVE: Patient states that they are comfortable Well Controlled knee pain. Denies incisional pain. OBJECTIVE: VITAL SIGNS: BP 137/81 Pulse 65 Temp 36.9 ?C (98.4 ?F) (Oral) Resp 16 Ht 157.5 cm (5' 2) Wt 101.1 kg (222 lb 14.2 oz) SpO2 99% BMI 40.77 kg/m? INTAKE AND OUTPUT: Intake/Output Summary (Last 24 hours) at 02/03/2024 0906 Last data filed at 02/03/2024 0822 Gross per 24 hour Intake 1382 ml Output 1000 ml Net 382 ml LABS: Hemoglobin Date Value Ref Range Status 02/03/2024 9.6 (L) 11.5 - 15.5 g/dL Final 02/02/2024 9.9 (L) 11.5 - 15.5 g/dL Final Hematocrit Date Value Ref Range Status 02/03/2024 31.4 (L) 36.0 - 46.0 % Final 02/02/2024 32.3 (L) 36.0 - 46.0 % Final Platelet Count Date Value Ref Range Status 02/03/2024 261 150 - 400 k/uL Final 01/27/2024 283 150 - 400 k/uL Final WBC Date Value Ref Range Status 02/03/2024 11.60 (H) 3.70 - 11.00 k/uL Final 01/27/2024 5.00 3.70 - 11.00 k/uL Final Creatinine Date Value Ref Range Status 02/03/2024 0.86 0.58 - 0.96 mg/dL Final 01/27/2024 1.05 (H) 0.58 - 0.96 mg/dL Final Potassium Date Value Ref Range Status 02/03/2024 4.7 3.7 - 5.1 mmol/L Final 01/27/2024 3.8 3.7 - 5.1 mmol/L Final VTE Prophylaxis: Active VTE Risk Category Order: 02/02/24 1115 VTE RISK CATEGORY: SURGICAL HIGH RISK ([place]) Active VTE Medication Orders: Anticoagulant AND Antiplatelet Medications (From admission, onward) Start Dose Route Frequency Last Action Ordered Stop 02/03/24 0900 aspirin, enteric coated 81 mg tab(s) (Surgical Risk Categories) 81 mg ORAL 2 TIMES DAILY Given, 02/02 0759 02/02/24 1100 -- Active VTE Prophylaxis Orders: 02/02/24 1115 PNEUMATIC COMPRESSION STOCKINGS ([place]) PHYSICAL EXAMINATION: Left Lower Extremity: Dorsalis pedis pulses palpable. Posterior tibial pulses palpable. Dorsi flexion 5/5. Plantar flexion 5/5. Extensor hallucis extension: 5/5. Sensory intact to light touch L4-S1. Dressing clean, dry, and intact. Surgical site no drainage and Silverlon intact. Problem Review and Assessment: Skin and Abdominal Wall: Patient monitored, no new events overnight Cardiovascular and Vascular: Patient monitored, no new events overnight Respiratory: Patient monitored, no new events overnight Endocrine and Metabolic: Patient monitored, no new events overnight Gastrointestinal: Patient monitored, no new events overnight Genitourinary and Nephrology: Patient monitored, no new events overnight Behavioral, Cerebrovascular and Nervous: Patient monitored, no new events overnight Infectious: Patient monitored, no new events overnight DATA: Diagnostic tests reviewed for today's visit: Most recent labs and imaging results. SIGNATURE: Marcello Lloyd PA-C PATIENT NAME: Caden Llamas DATE: February 03, 2024 TIME: 9:06 AM The patient has undergone major orthopedic surgery and participating in therapy. Pain cannot be managed within an average of 30 MED per day. Patient requiring average of higher than 30 MED per day in order to control pain and allow patient to actively and safely participate in therapy and this is the lowest dose consistent with patient's medical condition. Non-narcotic medication options have been discussed. In addition, the patient has been advised of the benefits and risks of the opioid (including the potential for addiction). Patient demonstrated understanding of risks versus benefits. [facility] 02-02-2024 Note HNO ID: [id number] Author: KARINA HEATH MD Service: Nursing Author Type: Anesthesiologist Type: Anesthesia Procedure Notes Filed: 02/02/2024 09:10 Note Text: ANESTHESIOLOGY PROCEDURE NOTE Spinal Block General Information Procedure Start Time/Medication Administration: 02/02/2024 7:46 AM Procedure End time: 02/02/2024 7:49 AM Patient location during procedure: OR Timeout Performed Pre-procedure: timeout performed Reason for Block: primary surgical anesthetic Staffing Anesthesiologist: Karina Haeth MD SRNA: Cheri Jaime SRNA Performed by: anesthesiologist and SRNA Preparation Sterility Preparation: hand hygiene performed prior to procedure, sterile gloves, drapes, and procedure tray, surgical cap used, mask used, sterile drape used during line insertion, skin prep agent completely dried prior to procedure Site Prep: Duraprep Procedure Details Patient Position: sitting Ultrasound Guided: Yes Monitoring: Pulse Ox and NIBP Approach: Midline Location: L2-3 Injection Technique: single-shot Needle Needle Type: cutting Needle Gauge: 22 G Needle Length: 3.5 in CSF: CSF clear Assessment Sensory Level: T10 Events: tolerated well SIGNATURE: ALEXEI Dillon PATIENT NAME: Caden Llamas DATE: February 02, 2024 TIME: 8:24 AM CSN: [id number] [facility] 02-02-2024 Note HNO ID: [id number] Author: KARINA HEATH MD Service: Nursing Author Type: Anesthesiologist Type: Anesthesia Procedure Notes Filed: 02/02/2024 09:10 Note Text: ANESTHESIOLOGY PROCEDURE NOTE Peripheral Nerve Block General Information Procedure Start Time/Medication Administration: 02/02/2024 7:07 AM Procedure End time: 02/02/2024 7:09 AM Patient location during procedure: pre-op Timeout Performed Pre-procedure: timeout performed Consent Obtained: Yes Patient identity confirmed: arm band and patient Reason for block: post-op pain management/at surgeon's request Staffing Anesthesiologist: Karina Heath MD SRNA: Cheri Jaime SRNA Performed by: ALEXEI and anesthesiologist Preparation Sterility Preparation: hand hygiene performed prior to procedure, sterile gloves, drapes, and procedure tray, surgical cap used, mask used, sterile drape used during line insertion, skin prep agent completely dried prior to procedure Site Prep: Chloraprep Pre-Procedure Neuro Exam Location: LLE Sensory: intact Motor: intact Procedure Details Patient Position: sitting Monitoring: Pulse OX, EKG and NIBP Block Type Lower Extremity: distal femoral (adductor canal) Laterality: left Injection Technique: single-shot Ultrasound Guided: Yes Image in Chart: yes Needle Needle Type: echogenic Needle Gauge: 22 G Needle Length: 83 mm Needle Localization: ultrasoundNo Assessment Injection assessment: negative aspiration, no paresthesia on injection, incremental injection and local visualized surrounding nerve on ultrasound Paresthesia: none Post-Procedure Neuro Exam Expected Regional Anesthesia: Yes Medications Administered ropivacaine (PF) 5 mg/mL (0.5 %) injection (NAROPIN) - peripheral nerve block 20 mL - 02/02/2024 7:07:00 AM dexamethasone sodium phosphate injection (DECADRON) - peripheral nerve block 4 mg - 02/02/2024 7:07:00 AM SIGNATURE: ALEXEI Dillon PATIENT NAME: Caden Llamas DATE: February 02, 2024 TIME: 7:13 AM CSN: [id number] [facility] 01-29-2024 Telephone encounter Note Per Dr. Bradley Ok to proceed . Thank you [facility] 01-29-[address] Bradley Ok to proceed . Thank you chronic, mild anemia, pre-op labs revealed Hgb 11.4, Ferritin 26.8 and Tsat 13.2. Possibility to obtain IV venofer prior to upcoming surgery unlikely. DOS 02/02/2024. Please advise if you are okay proceeding without? Thank you documented in this encounter [facility] 01-29-2024 Telephone encounter Note chronic, mild anemia, pre-op labs revealed Hgb 11.4, Ferritin 26.8 and Tsat 13.2. Possibility to obtain IV venofer prior to upcoming surgery unlikely. DOS 02/02/2024. Please advise if you are okay proceeding without? Thank you [facility] 01-29-2024 Telephone encounter Note Pulled EKG rhythm strip and cardiac records from [employer]. Original sent to [facility] through [employer] scanning and copy given to Carolina Ojeda CNP. Candi Baird LPN [facility] 01-29-2024 Miscellaneous Notes Pulled EKG rhythm strip and cardiac records from [employer]. Original sent to [facility] through Onbase scanning and copy given to Carolina Ojeda CNP. Candi Baird LPN Please request cardiac records/testing from Dr. Broderick's office, including recent EKG. documented in this encounter [facility] 01-27-2024 Instructions Carolina Ojeda APRN.CNP - 01/27/2024 2:56 PM EDT Images from the original note were not included. [facility] PATIENT PREOPERATIVE INSTRUCTIONS Makayla Bradley MD has scheduled you for your procedure at this surgery center: [facility]: [phone] -- [address] [address]. Please read below carefully for your personalized instructions. Dietary Restrictions: - No solid food after midnight. - You may have 12 ounces of clear liquids (water, clear juices such as apple juice or gatorade, carbonated beverages, clear tea, black coffee, jello) until 2 hours before scheduled arrival at facility. No red/purple coloring and no creamer/sugar Medications: Unless instructed differently below, stay on all of your medications until your surgery. If you start any new medications after today's visit, please contact your surgeon. Pre-Surgery Med Instructions Medication Instructions omeprazole (PRILOSEC) 40 mg capsule Take the day of surgery with a small sip of water gabapentin (NEURONTIN) 800 mg tablet Take the day of surgery with a small sip of water amLODIPine (NORVASC) 5 mg tablet Take the day of surgery with a small sip of water carvedilol (COREG) 12.5 mg tablet Take the day of surgery with a small sip of water traZODone (DESYREL) 50 mg tablet Do not take the day of surgery amLODIPine (NORVASC) 2.5 mg tablet Take the day of surgery with a small sip of water ergocalciferol 50,000 unit capsule (VITAMIN D2, DRISDOL) Stop 7 days before surgery meclizine (ANTIVERT) 25 mg tab IF needed albuterol HFA (PROAIR HFA) 90 mcg/actuation inhaler Take the day of surgery with a small sip of water ferrous sulfate 325 mg (65 mg iron) tablet Stop 7 days before surgery CPAP If you start any new medications after today's visit, please contact the surgeon's office. Blood Thinning Medications: - Stop NSAIDS (Ibuprofen, Advil, Aleve, Motrin, Celebrex, Mobic, etc.) 7 days before surgery, as directed by your surgeon. - Stop Aspirin 7 days before surgery, as directed by your surgeon. - Stop Vitamin E, ALL multi-vitamins, herbals and dietary supplements 7 days before surgery. - You may take Tylenol (Acetaminophen) or any of your pain medications that do not contain aspirin or NSAIDS as needed. Important Reminders: - Candy, mints, and tobacco products are NOT permitted the morning of surgery. - Hearing aids, dentures and glasses may be worn the morning of surgery. - NO jewelry, body piercings, makeup, hairpins or contacts are to be worn the day of surgery. If you develop symptoms such as a fever, cold, or flu, or have other changes to your health within TWO DAYS of scheduled surgery or the morning of surgery, please contact the surgery center above. Personal Belongings: -Please have photo ID and insurance cards. -If you do not have a copy of advance directives on file with us, please bring a copy with you on the day of surgery. - Leave ALL valuables and money at home or with family members. For Outpatient Procedures: - YOU MUST HAVE A RESPONSIBLE DRAFTSPERSON TAKE YOU HOME. A LODGING FACILITIES ATTENDANT OR BACKER UP CANNOT BE MADE A RESPONSIBLE DRAFTSPERSON. - We recommend that a responsible person stays with you overnight to take care of you. - You cannot stay in a hotel alone after outpatient surgery. You will not be permitted to have your surgery, if you do not have someone to take care of you. Arrival Time for Surgery: - The Surgery Center or hospital where you are having surgery will call the afternoon before surgery (or Thursday for Thursday surgery) with a scheduled arrival time. - If you have not heard by 4 pm, please contact the surgery center above. Please be aware that emergency situations arise, which may delay or change your surgical time. If this happens, we will notify you as soon as possible and regret any inconvenience. If you already have an Advance Directive, please fax a copy to [phone] or email to for it to be added to your chart. If you do not have an Advance Directive, you can find the appropriate form and more information at [email or web address]. We recommend that you complete the Advance Directive form found on the website and bring it with you the day of your surgery. It can be witnessed and scanned into your chart that day. Carolina Ojeda APRN.CNP documented in this encounter [facility] 01-27-2024 Telephone encounter Note Please request cardiac records/testing from Dr. Broderick's office, including recent EKG. [facility] 01-27-2024 History and physical note Images from the original note were not included. [facility] HISTORY AND PHYSICAL EXAMINATION SERVICE DATE: 01/27/2024 SERVICE TIME: 2:55 PM PRIMARY CARE PHYSICIAN: Moises Malcolm APRN.HUMAN MACHINE INTERFACE ENGINEER Assessment Patient has the following medical conditions which may affect roselia-operative course: Anemia Assessment: chronic, mild anemia, pre-op labs revealed Hgb 11.4, Ferritin 26.8 and Tsat 13.2. TE to surgeon's office to inform him unlikely possibility to obtain IV venofer prior to upcoming surgery. H/O Stroke (HCC) Assessment: Dx in 2012; no apparent residual. TIA in 2018? Per patient. H/O Brain Aneurysm Assessment: Repair with coil in 2012; L MCA. brain MRI normal 09/2018. Peripheral neuropathy Assessment: controlled on rx Atrial fibrillation (HCC) Assessment: paroxymal, daily ASA, following WHG, per last OV she was to have obtained an echo and stress test for a bariatric surgery last year, those records were requested, not included in original request 08/06/2022 Dr. Broderick, [facility] Hyperlipidemia with target low density lipoprotein (LDL) cholesterol less than 100 mg/dL Assessment: c/w statin Hypertension Assessment: controlled on rx, recheck 140/90, asymptomatic Last 14 BP Last 14 Encounter BP Readings: Date: BP: 01/27/2024 142/100 12/08/2023 124/86 10/26/2023 132/80 04/16/2023 128/78 07/07/2019 173/91 07/04/2019 188/93 06/30/2019 168/88 06/27/2019 158/90 06/24/2019 157/89 06/22/2019 169/90 06/01/2019 183/103 05/23/2019 175/96 05/16/2019 156/95 10/20/2018 152/83 Chest pain of uncertain etiology Assessment: hx 2018 with normal heart cath, denies any current CP, palpitations, no new/worsening WEISS, sob, or any other new or worsening cardiac symptoms Asthma Assessment: PRN inhaler, uses 2-3 x month. Depends on weather. WEISS (dyspnea on exertion) Assessment: chronic with stairs, recent stress and echo (2022) requested from [facility] RUTH (obstructive sleep apnea) Assessment: non-compliant with CPAP Stage 2 chronic kidney disease Assessment: Creatinine Date Value Ref Range Status 01/27/2024 1.05 (H) 0.58 - 0.96 mg/dL Final 04/16/2023 0.97 (H) 0.58 - 0.96 mg/dL Final 06/01/2020 0.98 (H) 0.510 - 0.950 MG/DL Final Comment: Patients receiving either N-Acetylcysteine (NAC) or Metamizole prior to venipuncture, may have falsely depressed results. 05/16/2019 0.93 0.58 - 0.96 mg/dL Final Urinary incontinence Assessment: and fecal incontinence, referred to gastro last fall by PCP's office but not consultation found Diabetes mellitus type 2, uncomplicated (HCC) Assessment: diet controlled Hemoglobin A1C (%) Date Value 06/01/2020 6.2 Hemoglobin A1C (POCT) (%) Date Value 10/26/2023 5.9 S/P total knee replacement Assessment: hx Anxiety Assessment: hx, no current tx Morbidly obese (HCC) Assessment: Body mass index is 40.6 kg/m . Carrizales Activity Status Index: METS: Walk indoors, such as around the house (1.75 METs) Do light work around the house, such as dusting or washing dishes (2.70 METs) Take care of self; that is eating, dressing, bathing, using the toilet (2.75 METs) Walk a block or two on level ground (2.75 METs) DASI Score: 9.95 Patient denies any chest pain or undue shortness of breath with the above physical activity. Clinical Frailty Scale: 3. Well, with treated comorbid disease STOP-Bang Score: Denies snoring loudly Denies feeling tired, fatigued, or sleepy during the daytime Has not been observed to stop breathing or choking/gasping during sleep Denies having high blood pressure BMI less than or equal to 35 kg/m^2 Patient 50 years old or younger Does not have a large neck STOP-Bang Score: 0 [id number] Score: Age: 65-74 Sex: female CHF history: No Hypertension history: Yes Stroke/TIA/thromboembolism history: Yes Vascular disease history: No Diabetes history: Yes AUC3RS1-PMRx Score: 6 ARISCAT Score: Age: 51-80 Preoperative SpO2: >=96% Respiratory infection in the last month: No Preoperative anemia: No Surgical incision: peripheral Duration of surgery: 2-3 hrs Emergency procedure: No ARISCAT Score: 19 ANESTHESIA FINDINGS: Intubation History: No history of difficult intubation Significant Anesthesia Considerations: none Airway History: No history of difficult airway I - PHYSICAL EVALUATION AIRWAY Patient intubated: No. Tracheostomy tube not present Mallampati: III. TM distance: >3 FB. Neck ROM: full ROM without neurological symptoms. Mouth opening: adequate. Short neck: no. Thick neck: yes Enciso present: no Lip Bite Test: I Microretrognathia/Micronagthia/Rec essed Chin: No II - ANESTHESIA PLAN Anesthetic Plan: other Beta Anjelica Monitoring Plan Post Procedure Analgesic Plan Informed Consent Anesthetic risks, benefits, alternatives, personnel and consent discussed: yes. Patient / Responsible Green Party agrees to proceed: yes Patient / Surrogate agrees to blood products: blood products not planned Discussed the possibility of lip / dental damage: yes Prepared for Surgery: optimally prepared for surgery, pending [see comment]. Labs-reviewed, okay to proceed-JL Received cardiac records from [facility], missing echo and stress test from 2022, requested again CONSULTS: Patient does not require consults for optimization at this time Planned Anesthetic: other anesthesia choice The Following Tests/Procedures Have Been Initiated: Orders Placed This Encounter >CBC + AUTO DIFF Standing Status: Future Number of Occurrences: 1 Standing Expiration Date: 04/27/2024 >CMP Standing Status: Future Number of Occurrences: 1 Standing Expiration Date: 04/27/2024 Ferritin Standing Status: Future Number of Occurrences: 1 Standing Expiration Date: 04/27/2024 Scheduling Instructions: In preparation for this test, do not take multivitamins or dietary supplements containing biotin (vitamin B7) for at least 12 hours. Biotin is commonly found in hair, skin, and nail supplements and multivitamins. Tell your doctor if you take supplements containing biotin as part of your medication history. Iron and TIBC Standing Status: Future Number of Occurrences: 1 Standing Expiration Date: 04/27/2024 mupirocin (BACTROBAN) 2 % ointment Sig: Apply 0.5 inch with cotton swab (Q-tip) to each nostril in the morning and evening for 5 days prior to and including day of surgery. Dispense: 22 g Refill: 0 REASON FOR VISIT: Caden Llamas is a 69 year old female who is scheduled for Procedure(s): ROBOTIC ASSISTED TOTAL KNEE ARTHROPLASTY (Left) at the request of Dr. Makayla Bradley for consultation. My final recommendation will be communicated back to the requesting physician by way of shared medical record or letter. 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 CHIEF COMPLAINT: Pre-op exam HPI: Caden Llamas is a 69 year old seen for PAC due to scheduled above surgery because of left knee OA. 11/30/2023, Dr. Makayla Bradley Ms. Llamas was last seen for left shoulder pain three years. had the following plan implemented given a prescription for Medrol Dosepak. She presents today for Follow Up and Pain of the Left Knee and Follow Up and Knee Replacement of the Right Knee. She is complaining primarily of left knee pain. States it is worse with weightbearing and worse with ascending/descending steps. History: PAIN EVALUATION 11/30/2023 1423 Pain Level: 10 Pain Location: Knee-Left Description: Sharp;Aching;Throbbing Duration Amount of Time: - ongoing Frequency: Continuous Intervention/Comfort measure: Positioning;Relaxation The patient denies swelling, warmth, discharge, drainage, fevers, chills, sweats. She reports compliance with therapy, sling/splint/ambulatory device/dressing/wound care, and the use of medications. Previous treatments have included steroid injections. She reports no change in past medical & surgical history, medications, allergies, social history, family history and review of systems since last visit, with the exception of the following: None Radiographs: Rays today shows significant medial compartment osteoarthritis where she is [id number] and moderate patellofemoral joint arthritis. REVIEW OF SYSTEMS: General: No weight loss, malaise or fevers. Neurological: +brain aneurysm s/p coil. No history of TIA's, stroke, [employer] tumor, impaired sensorium, hemiplegia, paraplegia or quadraplegia. No neurological symptoms or problems. Respiratory: Positive for: asthma (rx as needed), obstructive sleep apnea and CPAP/BiPAP noncompliant. Negative for: COPD, pneumonia within 6 weeks, tobacco use and URI < 2 weeks. Cardiovascular: Positive for: anticoagulation therapy (ASA), atrial fibrillation, DVT/PE, hyperlipidemia (on rx) and hypertension (on rx) Negative for: abdominal aortic aneurysm, AICD/PPM, angina, arrhythmia, CAD, chest pain, CHF, congenital heart defect, recent AR, murmur/valvular heart disease, PTCA, PVD, open heart surgery and valve surgery. GI: Positive for: dysphagia (since aneurysm) and GERD (on rx) Negative for: abdominal pain, irritable bowel syndrome, inflammatory bowel disease, liver disease, nausea, pancreatitis, vomiting and ETOH >2 drinks/day. : No history of dysuria, frequency or incontinence, stones or chronic kidney disease. No difficulty urinating, nocturia > 1 time per night or hematuria. RETIREMENT MANAGER: Negative for abnormal vaginal bleeding, abnormal vaginal discharge. Endocrine: Positive for: diabetes mellitus. Patient's diabetes mellitus is controlled by diet. Negative for: hyperthyroidism. Hematology: Positive for: anemia, iron deficiency anemia (on rx) and chronic anti-coagulation/platelet meds. Patient is on anti-coagulation/platelet medication(s): Aspirin. Negative for: bruises/bleeds easily and transfusion of at least 4 units within 72 hours prior to surgery. Oncology: No history of CA metastasis, chemo within 30 days, or radiotherapy within 90 days. No history of oncological symptoms or problems. Psych: No history of psychiatric symptoms or problems. Musculoskeletal: See HPI. +Right TKA +right shoulder replacement Skin: Negative for lesions, rash and itching. PAST MEDICAL HISTORY Diagnosis Date Active asthma Anxiety Arthritis of knee, left 10/21/2012 Brain aneurysm Diabetes mellitus type 2, uncomplicated (HCC) Fibroids Hyperlipidemia LDL goal < 100 02/25/2013 Hypertension Morbidly obese (HCC) 10/20/2018 RUTH (obstructive sleep apnea) 10/20/2018 Peripheral neuropathy 10/20/2018 Pulmonary embolism (HCC) 12/13/2012 Right shoulder injury 10/21/2012 Stroke ([facility]) PAST SURGICAL HISTORY Procedure Laterality Date APPENDECTOMY ARTHRP KNE CONDYLE&PLATU MEDIAL&LAT COMPARTMENTS Right 10/27/2018 Knee replacement, total BRAIN SURGERY HX brain aneurysm coiled CARDIAC CATH 2019 CHOLECYSTECTOMY Cholecystectomy SHOULDER SURGERY HX Right VAGINAL HYSTERECTOMY UTERUS 250 GM/< Hysterectomy, vaginal, Fibroids FAMILY HISTORY Problem Relation Age of Onset Cancer Mother Liver Diabetes Mother Hypertension Mother Lipids Mother Heart Father [place] Psychiatry Sister Hypertension Sister Diabetes Sister Social History Tobacco Use Smoking status: Never Smokeless tobacco: Never Tobacco comments: Smoked as a teenager Vaping Use Vaping Use: Never used Substance Use Topics Alcohol use: No Drug use: No Prior to Admission medications as of 01/27/24 1456 Medication Sig Last Dose Taking omeprazole (PRILOSEC) 40 mg capsule Take 1 capsule by mouth once daily. Taking Yes gabapentin (NEURONTIN) 800 mg tablet Take 1 tablet by mouth three times a day for 180 days. Taking Yes amLODIPine (NORVASC) 5 mg tablet Take 1 tablet by mouth once daily. Taking Yes carvedilol (COREG) 12.5 mg tablet 1 tablet two times a day with meals. Taking Yes traZODone (DESYREL) 50 mg tablet Take 1 tablet by mouth daily at bedtime. Taking Yes amLODIPine (NORVASC) 2.5 mg tablet take 1 tablet by mouth every day Taking Yes ergocalciferol 50,000 unit capsule (VITAMIN D2, DRISDOL) Take 1 capsule by mouth one time a week. Taking Yes meclizine (ANTIVERT) 25 mg tab Take 25 mg by mouth. Taking Yes albuterol HFA (PROAIR HFA) 90 mcg/actuation inhaler Inhale 1 Puff as instructed every 4 hours as needed. Taking Yes ferrous sulfate 325 mg (65 mg iron) tablet Take 325 mg by mouth daily with breakfast. Taking Yes CPAP Taking Yes mupirocin (BACTROBAN) 2 % ointment Apply 0.5 inch with cotton swab (Q-tip) to each nostril in the morning and evening for 5 days prior to and including day of surgery. No medication comments found. ALLERGIES Allergen Reactions Cats Swelling Latex Rash Lisinopril Swelling Tongue swells up Percocet [Oxycodone* Itching Objective PHYSICAL EXAM: General: alert and oriented (x3), healthy appearance and morbidly obese. Pertinent negatives noted - not distressed. Skin: normal color, no rash or lesions. HEENT: EOM intact and pupils equal round. Pertinent negatives noted - no carotid bruit. Cardiovascular: regular rate and rhythm, normal S1 and S2, no rub, murmurs, or gallop. Respiratory: normal breath sounds, no wheezes or crackles. No chest wall deformity or tenderness. Abdomen: soft. Pertinent negatives noted - not tender. Extremities: no deformity, no edema or tenderness, no joint swelling or clubbing. Neurological: normal cognition and motor skills. Gait normal. No weakness or sensory deficit. PAIN ASSESSMENT: Pain Pain Level: 8 Pain Location: Knee-Left Description: Throbbing Duration Amount of Time: 5 Duration Units: Months Frequency: Continuous Intervention/Comfort measure: Medication VITALS: BP 142/100 Pulse 95 Temp (Src) 98.1 (Temporal) Resp 14 Ht 5' 2 (1.58m) Wt 222 lb (100.7kg) SpO2 100% BMI 40.59 kg/(m^2). Diagnostic tests reviewed for today's visit: Lab Value Units Date High Low HB 11.4 g/dL 01/27/2024 15.5 11.5 HCT 37.5 % 01/27/2024 46.0 36.0 WBC 5.00 k/uL 01/27/2024 11.00 3.70 PLT 283 k/uL 01/27/2024 400 150 NA 139 mmol/L 01/27/2024 144 136 K 3.8 mmol/L 01/27/2024 5.1 3.7 GLUC 111 mg/dL 01/27/2024 99 74 BUN 8 mg/dL 01/27/2024 21 7 CREAT 1.05 mg/dL 01/27/2024 0.96 0.58 PTSEC No results within date range. INR No results within date range. APTT No results within date range. ALT 7 U/L 01/27/2024 38 7 AST 14 U/L 01/27/2024 35 13 TBILI 0.3 mg/dL 01/27/2024 1.3 0.2 TSH No results within date range. Lab Value Units Date High Low HCGQT No results within date range. UHCG No results within date range. HCG, BODY* No results within date range. Lab Value Units Date High Low ABORHD No results within date range. ABSCREEN No results within date range. Hemoglobin A1C (%) Date Value 04/16/2023 6.5 06/01/2020 6.2 10/20/2018 6.0 10/01/2018 6.0 06/06/2013 5.9 02/26/2013 6.1 Hemoglobin A1C (POCT) (%) Date Value 10/26/2023 5.9 No results found for this or any previous visit (from the past 8760 hour(s)). No results found for this or any previous visit (from the past 37961 hour(s)). Instructions Given to Patient: Instructions located in the after visit summary. Patient given verbal and written preop instructions and voices comprehension and compliance. SIGNATURE: Carolina Ojeda APRN.CNP PATIENT NAME: Caden Llamas DATE: January 27, 2024 TIME: 2:53 PM PAGER/CONTACT #: [facility] 01-27-2024 History and physical note Images from the original note were not included. [facility] HISTORY AND PHYSICAL EXAMINATION SERVICE DATE: 01/27/2024 SERVICE TIME: 2:55 PM PRIMARY CARE PHYSICIAN: Moises Malcolm APRN.CNP Assessment Patient has the following medical conditions which may affect roselia-operative course: Anemia Assessment: chronic, mild anemia, pre-op labs revealed Hgb 11.4, Ferritin 26.8 and Tsat 13.2. TE to surgeon's office to inform him unlikely possibility to obtain IV venofer prior to upcoming surgery. H/O Stroke (HCC) Assessment: Dx in 2012; no apparent residual. TIA in 2018? Per patient. H/O Brain Aneurysm Assessment: Repair with coil in 2012; L MCA. brain MRI normal 09/2018. Peripheral neuropathy Assessment: controlled on rx Atrial fibrillation (HCC) Assessment: paroxymal, daily ASA, following [facility], per last OV she was to have obtained an echo and stress test for a bariatric surgery last year, those records were requested, not included in original request 08/06/2022 Dr. Broderick, [facility] Hyperlipidemia with target low density lipoprotein (LDL) cholesterol less than 100 mg/dL Assessment: c/w statin Hypertension Assessment: controlled on rx, recheck 140/90, asymptomatic Last 14 BP Last 14 Encounter BP Readings: Date: BP: 01/27/2024 142/100 12/08/2023 124/86 10/26/2023 132/80 04/16/2023 128/78 07/07/2019 173/91 07/04/2019 188/93 06/30/2019 168/88 06/27/2019 158/90 06/24/2019 157/89 06/22/2019 169/90 06/01/2019 183/103 05/23/2019 175/96 05/16/2019 156/95 10/20/2018 152/83 Chest pain of uncertain etiology Assessment: hx 2018 with normal heart cath, denies any current CP, palpitations, no new/worsening WEISS, sob, or any other new or worsening cardiac symptoms Asthma Assessment: PRN inhaler, uses 2-3 x month. Depends on weather. WEISS (dyspnea on exertion) Assessment: chronic with stairs, recent stress and echo (2022) requested from [facility] RUTH (obstructive sleep apnea) Assessment: non-compliant with CPAP Stage 2 chronic kidney disease Assessment: Creatinine Date Value Ref Range Status 01/27/2024 1.05 (H) 0.58 - 0.96 mg/dL Final 04/16/2023 0.97 (H) 0.58 - 0.96 mg/dL Final 06/01/2020 0.98 (H) 0.510 - 0.950 MG/DL Final Comment: Patients receiving either N-Acetylcysteine (NAC) or Metamizole prior to venipuncture, may have falsely depressed results. 05/16/2019 0.93 0.58 - 0.96 mg/dL Final Urinary incontinence Assessment: and fecal incontinence, referred to gastro last fall by PCP's office but not consultation found Diabetes mellitus type 2, uncomplicated (HCC) Assessment: diet controlled Hemoglobin A1C (%) Date Value 06/01/2020 6.2 Hemoglobin A1C (POCT) (%) Date Value 10/26/2023 5.9 S/P total knee replacement Assessment: hx Anxiety Assessment: hx, no current tx Morbidly obese (HCC) Assessment: Body mass index is 40.6 kg/m . Carrizales Activity Status Index: METS: Walk indoors, such as around the house (1.75 METs) Do light work around the house, such as dusting or washing dishes (2.70 METs) Take care of self; that is eating, dressing, bathing, using the toilet (2.75 METs) Walk a block or two on level ground (2.75 METs) DASI Score: 9.95 Patient denies any chest pain or undue shortness of breath with the above physical activity. Clinical Frailty Scale: 3. Well, with treated comorbid disease STOP-Bang Score: Denies snoring loudly Denies feeling tired, fatigued, or sleepy during the daytime Has not been observed to stop breathing or choking/gasping during sleep Denies having high blood pressure BMI less than or equal to 35 kg/m^2 Patient 50 years old or younger Does not have a large neck STOP-Bang Score: 0 [id number] Score: Age: 65-74 Sex: female CHF history: No Hypertension history: Yes Stroke/TIA/thromboembolism history: Yes Vascular disease history: No Diabetes history: Yes [id number] Score: 6 ARISCAT Score: Age: 51-80 Preoperative SpO2: >=96% Respiratory infection in the last month: No Preoperative anemia: No Surgical incision: peripheral Duration of surgery: 2-3 hrs Emergency procedure: No ARISCAT Score: 19 ANESTHESIA FINDINGS: Intubation History: No history of difficult intubation Significant Anesthesia Considerations: none Airway History: No history of difficult airway I - PHYSICAL EVALUATION AIRWAY Patient intubated: No. Tracheostomy tube not present Mallampati: III. TM distance: >3 FB. Neck ROM: full ROM without neurological symptoms. Mouth opening: adequate. Short neck: no. Thick neck: yes Enciso present: no Lip Bite Test: I Microretrognathia/Micronagthia/Rec essed Chin: No II - ANESTHESIA PLAN Anesthetic Plan: other Beta Anjelica Monitoring Plan Post Procedure Analgesic Plan Informed Consent Anesthetic risks, benefits, alternatives, personnel and consent discussed: yes. Patient / Responsible [employer] agrees to proceed: yes Patient / Surrogate agrees to blood products: blood products not planned Discussed the possibility of lip / dental damage: yes Prepared for Surgery: optimally prepared for surgery, pending [see comment]. Labs-reviewed, okay to proceed-JL Received cardiac records from [facility], missing echo and stress test from 2022, requested again CONSULTS: Patient does not require consults for optimization at this time Planned Anesthetic: other anesthesia choice The Following Tests/Procedures Have Been Initiated: Orders Placed This Encounter >CBC + AUTO DIFF Standing Status: Future Number of Occurrences: 1 Standing Expiration Date: 04/27/2024 >CMP Standing Status: Future Number of Occurrences: 1 Standing Expiration Date: 04/27/2024 Ferritin Standing Status: Future Number of Occurrences: 1 Standing Expiration Date: 04/27/2024 Scheduling Instructions: In preparation for this test, do not take multivitamins or dietary supplements containing biotin (vitamin B7) for at least 12 hours. Biotin is commonly found in hair, skin, and nail supplements and multivitamins. Tell your doctor if you take supplements containing biotin as part of your medication history. Iron and TIBC Standing Status: Future Number of Occurrences: 1 Standing Expiration Date: 04/27/2024 mupirocin (BACTROBAN) 2 % ointment Sig: Apply 0.5 inch with cotton swab (Q-tip) to each nostril in the morning and evening for 5 days prior to and including day of surgery. Dispense: 22 g Refill: 0 REASON FOR VISIT: Caden Llamas is a 69 year old female who is scheduled for Procedure(s): ROBOTIC ASSISTED TOTAL KNEE ARTHROPLASTY (Left) at the request of Dr. Makayla Bradley for consultation. My final recommendation will be communicated back to the requesting physician by way of shared medical record or letter. 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 CHIEF COMPLAINT: Pre-op exam HPI: Caden Llamas is a 69 year old seen for PAC due to scheduled above surgery because of left knee OA. 11/30/2023, Dr. Makayla Bradley Ms. Llamas was last seen for left shoulder pain three years. had the following plan implemented given a prescription for Medrol Dosepak. She presents today for Follow Up and Pain of the Left Knee and Follow Up and Knee Replacement of the Right Knee. She is complaining primarily of left knee pain. States it is worse with weightbearing and worse with ascending/descending steps. History: PAIN EVALUATION 11/30/2023 1423 Pain Level: 10 Pain Location: Knee-Left Description: Sharp;Aching;Throbbing Duration Amount of Time: - ongoing Frequency: Continuous Intervention/Comfort measure: Positioning;Relaxation The patient denies swelling, warmth, discharge, drainage, fevers, chills, sweats. She reports compliance with therapy, sling/splint/ambulatory device/dressing/wound care, and the use of medications. Previous treatments have included steroid injections. She reports no change in past medical & surgical history, medications, allergies, social history, family history and review of systems since last visit, with the exception of the following: None Radiographs: Rays today shows significant medial compartment osteoarthritis where she is [id number] and moderate patellofemoral joint arthritis. REVIEW OF SYSTEMS: General: No weight loss, malaise or fevers. Neurological: +brain aneurysm s/p coil. No history of TIA's, stroke, [employer] tumor, impaired sensorium, hemiplegia, paraplegia or quadraplegia. No neurological symptoms or problems. Respiratory: Positive for: asthma (rx as needed), obstructive sleep apnea and CPAP/BiPAP noncompliant. Negative for: COPD, pneumonia within 6 weeks, tobacco use and URI < 2 weeks. Cardiovascular: Positive for: anticoagulation therapy (ASA), atrial fibrillation, DVT/PE, hyperlipidemia (on rx) and hypertension (on rx) Negative for: abdominal aortic aneurysm, AICD/PPM, angina, arrhythmia, CAD, chest pain, CHF, congenital heart defect, recent AR, murmur/valvular heart disease, PTCA, PVD, open heart surgery and valve surgery. GI: Positive for: dysphagia (since aneurysm) and GERD (on rx) Negative for: abdominal pain, irritable bowel syndrome, inflammatory bowel disease, liver disease, nausea, pancreatitis, vomiting and ETOH >2 drinks/day. : No history of dysuria, frequency or incontinence, stones or chronic kidney disease. No difficulty urinating, nocturia > 1 time per night or hematuria. RETIREMENT MANAGER: Negative for abnormal vaginal bleeding, abnormal vaginal discharge. Endocrine: Positive for: diabetes mellitus. Patient's diabetes mellitus is controlled by diet. Negative for: hyperthyroidism. Hematology: Positive for: anemia, iron deficiency anemia (on rx) and chronic anti-coagulation/platelet meds. Patient is on anti-coagulation/platelet medication(s): Aspirin. Negative for: bruises/bleeds easily and transfusion of at least 4 units within 72 hours prior to surgery. Oncology: No history of CA metastasis, chemo within 30 days, or radiotherapy within 90 days. No history of oncological symptoms or problems. Psych: No history of psychiatric symptoms or problems. Musculoskeletal: See HPI. +Right TKA +right shoulder replacement Skin: Negative for lesions, rash and itching. PAST MEDICAL HISTORY Diagnosis Date Active asthma Anxiety Arthritis of knee, left 10/21/2012 Brain aneurysm Diabetes mellitus type 2, uncomplicated (HCC) Fibroids Hyperlipidemia LDL goal < 100 02/25/2013 Hypertension Morbidly obese (HCC) 10/20/2018 RUTH (obstructive sleep apnea) 10/20/2018 Peripheral neuropathy 10/20/2018 Pulmonary embolism (HCC) 12/13/2012 Right shoulder injury 10/21/2012 Stroke (HCC) PAST SURGICAL HISTORY Procedure Laterality Date APPENDECTOMY ARTHRP KNE CONDYLE&PLATU MEDIAL&LAT COMPARTMENTS Right 10/27/2018 Knee replacement, total BRAIN SURGERY HX 8-2013 brain aneurysm coiled CARDIAC CATH 2019 CHOLECYSTECTOMY Cholecystectomy SHOULDER SURGERY HX Right VAGINAL HYSTERECTOMY UTERUS 250 GM/< Hysterectomy, vaginal, Fibroids FAMILY HISTORY Problem Relation Age of Onset Cancer Mother Liver Diabetes Mother Hypertension Mother Lipids Mother Heart Father [place] Psychiatry Sister Hypertension Sister Diabetes Sister Social History Tobacco Use Smoking status: Never Smokeless tobacco: Never Tobacco comments: Smoked as a teenager Vaping Use Vaping Use: Never used Substance Use Topics Alcohol use: No Drug use: No Prior to Admission medications as of 01/27/24 1456 Medication Sig Last Dose Taking omeprazole (PRILOSEC) 40 mg capsule Take 1 capsule by mouth once daily. Taking Yes gabapentin (NEURONTIN) 800 mg tablet Take 1 tablet by mouth three times a day for 180 days. Taking Yes amLODIPine (NORVASC) 5 mg tablet Take 1 tablet by mouth once daily. Taking Yes carvedilol (COREG) 12.5 mg tablet 1 tablet two times a day with meals. Taking Yes traZODone (DESYREL) 50 mg tablet Take 1 tablet by mouth daily at bedtime. Taking Yes amLODIPine (NORVASC) 2.5 mg tablet take 1 tablet by mouth every day Taking Yes ergocalciferol 50,000 unit capsule (VITAMIN D2, DRISDOL) Take 1 capsule by mouth one time a week. Taking Yes meclizine (ANTIVERT) 25 mg tab Take 25 mg by mouth. Taking Yes albuterol HFA (PROAIR HFA) 90 mcg/actuation inhaler Inhale 1 Puff as instructed every 4 hours as needed. Taking Yes ferrous sulfate 325 mg (65 mg iron) tablet Take 325 mg by mouth daily with breakfast. Taking Yes CPAP Taking Yes mupirocin (BACTROBAN) 2 % ointment Apply 0.5 inch with cotton swab (Q-tip) to each nostril in the morning and evening for 5 days prior to and including day of surgery. No medication comments found. ALLERGIES Allergen Reactions Cats Swelling Latex Rash Lisinopril Swelling Tongue swells up Percocet [Oxycodone* Itching Objective PHYSICAL EXAM: General: alert and oriented (x3), healthy appearance and morbidly obese. Pertinent negatives noted - not distressed. Skin: normal color, no rash or lesions. HEENT: EOM intact and pupils equal round. Pertinent negatives noted - no carotid bruit. Cardiovascular: regular rate and rhythm, normal S1 and S2, no rub, murmurs, or gallop. Respiratory: normal breath sounds, no wheezes or crackles. No chest wall deformity or tenderness. Abdomen: soft. Pertinent negatives noted - not tender. Extremities: no deformity, no edema or tenderness, no joint swelling or clubbing. Neurological: normal cognition and motor skills. Gait normal. No weakness or sensory deficit. PAIN ASSESSMENT: Pain Pain Level: 8 Pain Location: Knee-Left Description: Throbbing Duration Amount of Time: 5 Duration Units: Months Frequency: Continuous Intervention/Comfort measure: Medication VITALS: BP 142/100 Pulse 95 Temp (Src) 98.1 (Temporal) Resp 14 Ht 5' 2 (1.58m) Wt 222 lb (100.7kg) SpO2 100% BMI 40.59 kg/(m^2). Diagnostic tests reviewed for today's visit: Lab Value Units Date High Low HB 11.4 g/dL 01/27/2024 15.5 11.5 HCT 37.5 % 01/27/2024 46.0 36.0 WBC 5.00 k/uL 01/27/2024 11.00 3.70 PLT 283 k/uL 01/27/2024 400 150 NA 139 mmol/L 01/27/2024 144 136 K 3.8 mmol/L 01/27/2024 5.1 3.7 GLUC 111 mg/dL 01/27/2024 99 74 BUN 8 mg/dL 01/27/2024 21 7 CREAT 1.05 mg/dL 01/27/2024 0.96 0.58 PTSEC No results within date range. INR No results within date range. APTT No results within date range. ALT 7 U/L 01/27/2024 38 7 AST 14 U/L 01/27/2024 35 13 TBILI 0.3 mg/dL 01/27/2024 1.3 0.2 TSH No results within date range. Lab Value Units Date High Low HCGQT No results within date range. UHCG No results within date range. HCG, BODY* No results within date range. Lab Value Units Date High Low ABORHD No results within date range. ABSCREEN No results within date range. Hemoglobin A1C (%) Date Value 04/16/2023 6.5 06/01/2020 6.2 10/20/2018 6.0 10/01/2018 6.0 06/06/2013 5.9 02/26/2013 6.1 Hemoglobin A1C (POCT) (%) Date Value 10/26/2023 5.9 No results found for this or any previous visit (from the past 8760 hour(s)). No results found for this or any previous visit (from the past 58640 hour(s)). Instructions Given to Patient: Instructions located in the after visit summary. Patient given verbal and written preop instructions and voices comprehension and compliance. SIGNATURE: Carolina Ojeda APRN.CNP PATIENT NAME: Caden Llamas DATE: January 27, 2024 TIME: 2:53 PM PAGER/CONTACT #: documented in this encounter [facility] 01-19-2024 Telephone encounter Note Patient has been identified by name and date of : Yes, Provider Dr. bradley Date 01/19/2024 Time 9:44am Type of form: Short Term Disability Form received via: Walk in When form is completed, fax form to fax number provided. Form has been forwarded to: PSR / Med Sec George Edmond [facility] [facility] 01[facility]24 Miscellaneous Notes Patient has been identified by name and date of : Yes, Provider Dr. bradley Date 01/19/2024 Time 9:44am Type of form: Short Term Disability Form received via: Walk in When form is completed, fax form to fax number provided. Form has been forwarded to: PSR / Med Sec George Edmond documented in this encounter [facility] 01-19-2024 Miscellaneous Notes Radiology Service Progress Note PATIENT NAME: Caden Llamas DATE OF SERVICE: January 19, 2024 TIME: 9:11 AM PATIENT IDENTITY VERIFICATION COMPLETED USING TWO (2) IDENTIFIERS: Name and Date of confirmed by patient verbally and Name and Date of confirmed by identification band. FALL SCREENING: Has the patient had 2 falls in the last year or 1 fall with injury or currently using an Ambulatory Assistive Device (Walker, Cane, Wheelchair, Crutches, etc.)? No PATIENT GENDER DATA: Female. status: : No status: NO. PATIENT RELEVANT IMPLANT DATA REVIEWED: Not Applicable PATIENT PRESENTS WITH AN IMPLANTABLE OR ATTACHED PLASTERER FOREMAN: No RADIOLOGY DEPARTMENT: lt yazmin knee PERIPHERAL IV DATA: Not applicable SIGNED BY: ZACH Momin January 19, 2024 9:11 AM documented in this encounter [facility] 01-19-2024 Progress note Formatting of t his note might be different from the original. Radiology Service Progress Note PATIENT NAME: Caden Llamas DATE OF SERVICE: January 19, 2024 TIME: 9:11 AM PATIENT IDENTITY VERIFICATION COMPLETED USING TWO (2) IDENTIFIERS: Name and Date of confirmed by patient verbally and Name and Date of confirmed by identification band. FALL SCREENING: Has the patient had 2 falls in the last year or 1 fall with injury or currently using an Ambulatory Assistive Device (Walker, Cane, Wheelchair, Crutches, etc.)? No PATIENT GENDER DATA: Female. status: : No status: NO. PATIENT RELEVANT IMPLANT DATA REVIEWED: Not Applicable PATIENT PRESENTS WITH AN IMPLANTABLE OR ATTACHED PLASTERER FOREMAN: No RADIOLOGY DEPARTMENT: lt yazmin knee PERIPHERAL IV DATA: Not applicable SIGNED BY: ZACH Momin January 19, 2024 9:11 AM [facility] 01-15-2024 Telephone encounter Note Lvm for pts luis for to call back to schedule YAZMIN CT ab [facility] 01-15-2024 Miscellaneous Notes Lvm for pts luis for to call back to schedule YAZMIN CT ab LvM and sent a [employer] message for patient to call back and schedule ct prior to scan Order is in epic. Melanie Magana PA-C Please place ct scan order and schedule for 02/02/24 Lt tka yazmin. documented in this encounter [facility] 01-13-2024 Telephone encounter Note TOTAL JOINT COMPLETE CARE PROGRAM PRE-OPERATIVE TEACHING Service Date: 01/13/2024 Service Time: 11:05 AM Date of : 1955 Gender: female Date of Surgery: 02/02/24 Procedure: Left Total Hip Replacement Complete Care Program was discussed with the patient: Analog Device Designer Identification: Patient identified a rn critical care to help when discharged to home: spouse Home Environment: Home Layout: 2 story, Entry Steps: 4 with rail, Bedroom Location: 2nd floor, Bathroom Location: 2nd floor, and tub shower. Pt has walker, cane, raised toilet seat. Discussed with patient importance of attending joint education class and provided date and times of class: YES Patient declined. TKA in past. Patient received Joint Education Binder: Yes Plans discharge home with [facility]. SIGNATURE: JEAN CLAUDE Johns PATIENT NAME: Caden Llamas DATE: January 13, 2024 TIME: 10:57 AM [facility] 01-13-2024 Miscellaneous Notes TOTAL JOINT COMPLETE CARE PROGRAM PRE-OPERATIVE TEACHING Service Date: 01/13/2024 Service Time: 11:05 AM Date of : 1955 Gender: female Date of Surgery: 02/02/24 Procedure: Left Total Hip Replacement Complete Care Program was discussed with the patient: Analog Device Designer Identification: Patient identified a rn critical care to help when discharged to home: spouse Home Environment: Home Layout: 2 story, Entry Steps: 4 with rail, Bedroom Location: 2nd floor, Bathroom Location: 2nd floor, and tub shower. Pt has walker, cane, raised toilet seat. Discussed with patient importance of attending joint education class and provided date and times of class: YES Patient declined. TKA in past. Patient received Joint Education Binder: Yes Plans discharge home with [facility]. SIGNATURE: JEAN CLAUDE Johns PATIENT NAME: Caden Llamas DATE: January 13, 2024 TIME: 10:57 AM documented in this encounter [facility] 01-12-2024 Telephone encounter Note LvM and sent a [employer] message for patient to call back and schedule ct prior to scan [facility] 01-11-2024 Telephone encounter Note Order is in epic. Melanie Magana PA-C [facility] 01-11-2024 Telephone encounter Note Please place ct scan order and schedule for 02/02/24 Lt tka yazmin. [facility] 12-09-2023 Telephone encounter Note Called pt left VM with results Claudia Caldwell MA [facility] 12-09-2023 Telephone encounter Note ----- Message from Moises Malcolm APRN.HUMAN MACHINE INTERFACE ENGINEER sent at 12/09/2023 6:57 AM EDT ----- Urine micro wnl [facility] 12-09-2023 Miscellaneous Notes Called pt left VM with results Claudia Caldwell MA ----- Message from Moises Malcolm APRN.HUMAN MACHINE INTERFACE ENGINEER sent at 12/09/2023 6:57 AM EDT ----- Urine micro wnl documented in this encounter [facility] 12-08-2023 Instructions Moises Malcolm APRN.HUMAN MACHINE INTERFACE ENGINEER - 12/08/2023 10:35 AM EDT BONE MINERAL DENSITY PATIENT INSTRUCTIONS ======= Bone mineral density testing measures the amount [...] usual activities immediately. documented in this encounter [facility] 12-08-2023 History of Present illness Narrative SUBJECTIVE: Caden Llamas is a 68 year old female who presents for 4 wks follow up on HTN and insomnia. PMH asthma, DM, HLD, brain aneurysm. At last ov her norvasc was increased to 5 mg daily in October. She was also started on trazodone 50 mg for sleep. She is taking trazodone 50 mg daily. She reports this is working well. She reports she is very satisfied with results. She reports taking the Norvasc 5 mg daily. She reports she checked her BP and was 120/84, 116/46. She reports having 2 cataracts and is having one removed next week, [facility]. She is seeing Dr Bradley for her left knee pain. She reports she is going to have to have surgery on her right shoulder as well. She has follow up in December. She reports she has an ulcer. She is not seeing anyone for this. Reports she had one years ago and knows this is what it is. She reports constant reflux. She is not taking anything for this PAST MEDICAL HISTORY Diagnosis Date Active asthma Anxiety Arthritis of knee, left 10/21/2012 Brain aneurysm Diabetes mellitus type 2, uncomplicated (HCC) Fibroids Hyperlipidemia LDL goal < 100 02/25/2013 Hypertension Morbidly obese (HCC) 10/20/2018 RUTH (obstructive sleep apnea) 10/20/2018 Peripheral neuropathy 10/20/2018 Pulmonary embolism (HCC) 12/13/2012 Right shoulder injury 10/21/2012 Stroke ([facility]) PAST SURGICAL HISTORY Procedure Laterality Date [...] Topics Alcohol use: No Drug use: No ALLERGIES Allergen Reactions Cats Swelling Latex Rash Lisinopril Swelling Tongue swells up Percocet [Oxycodone* Itching Current Outpatient Medications Medication Sig ergocalciferol, vitamin D2, (VITAMIN D2 ORAL) Take by mouth. gabapentin (NEURONTIN) 800 mg tablet Take 1 tablet by mouth three times a day for 180 days. amLODIPine (NORVASC) 5 mg tablet Take 1 tablet by mouth once daily. carvedilol (COREG) 12.5 mg tablet 1 tablet two times a day with meals. traZODone (DESYREL) 50 mg tablet Take 1 tablet by mouth daily at bedtime. meclizine (ANTIVERT) 25 mg tab Take 25 mg by mouth. albuterol HFA (PROAIR HFA) 90 mcg/actuation inhaler Inhale 1 Puff as instructed every 4 hours as needed. ferrous sulfate 325 mg (65 mg iron) tablet Take 325 mg by mouth daily with breakfast. CPAP amLODIPine (NORVASC) 2.5 mg tablet take 1 tablet by mouth every day ergocalciferol 50,000 unit capsule (VITAMIN D2, DRISDOL) Take 1 capsule by mouth one time a week. No current facility-administered medications for this visit. Review of Systems Constitutional: Negative for chills, diaphoresis, fever and weight loss. Respiratory: Negative for cough, shortness of breath and wheezing. Cardiovascular: Negative for chest pain, palpitations and leg swelling. Genitourinary: Negative. Musculoskeletal: Negative. Neurological: Negative for dizziness, tingling and headaches. Psychiatric/Behavioral: Negative for depression and substance abuse. The patient has insomnia. The patient is not nervous/anxious. See HPI 12/08/23 0943 12/08/23 1016 BP: 122/88 124/86 BP Site: Right Arm BP Position: Sitting BP Cuff Size: Large Adult Pulse: 82 Resp: 18 Temp: 36.8 C (98.2 F) TempSrc: Oral SpO2: 98% Weight: 105.1 kg (231 lb 9.6 oz) Height: 158.1 cm (5' 2.25) Physical Exam Vitals reviewed. Constitutional: General: She is not in acute distress. Appearance: She is obese. She is not ill-appearing. HENT: Head: Normocephalic and atraumatic. Cardiovascular: Rate and Rhythm: Normal rate and regular rhythm. Pulses: Normal pulses. Heart sounds: Normal heart sounds. No murmur heard. Pulmonary: Effort: Pulmonary effort is normal. No respiratory distress. Breath sounds: Normal breath sounds. No wheezing or rhonchi. Abdominal: General: Bowel sounds are normal. Palpations: Abdomen is soft. Tenderness: There is no abdominal tenderness. Skin: General: Skin is warm and dry. Neurological: Mental Status: She is alert and oriented to person, place, and time. Psychiatric: Mood and Affect: Mood normal. Behavior: Behavior normal. Thought Content: Thought content normal. Judgment: Judgment normal. Latest Ref Rng 04/16/2023 10/26/2023 Protein, Total 6.3 - 8.0 g/dL 7.2 Albumin 3.9 - 4.9 g/dL 3.7 (L) Calcium 8.5 - 10.2 mg/dL 8.9 Bilirubin, Total 0.2 - 1.3 mg/dL 0.3 Alkaline Phosphatase 34 - 123 U/L 145 (H) AST 13 - 35 U/L 19 ALT 7 - 38 U/L 14 Glucose 74 - 99 mg/dL 87 BUN 7 - 21 mg/dL 9 Creatinine 0.58 - 0.96 mg/dL 0.97 (H) Sodium 136 - 144 mmol/L 140 Potassium 3.7 - 5.1 mmol/L 4.4 Chloride 97 - 105 mmol/L 105 CO2 22 - 30 mmol/L 28 Anion Gap 9 - 18 mmol/L 7 (L) eGFR >=60 mL/min/1.73m 63 WBC 3.70 - 11.00 k/uL 7.59 RBC 3.90 - 5.20 m/uL 4.16 Hemoglobin 11.5 - 15.5 g/dL 10.9 (L) Hematocrit 36.0 - 46.0 % 37.0 MCV 80.0 - 100.0 fL 88.9 MCH 26.0 - 34.0 pg 26.2 MCHC 30.5 - 36.0 g/dL 29.5 (L) RDW-CV 11.5 - 15.0 % 14.2 Platelet Count 150 - 400 k/uL 279 MPV 9.0 - 12.7 fL 10.7 Cholesterol, Total <200 mg/dL 231 (H) Triglyceride <150 mg/dL 156 (H) HDL Cholesterol >39 mg/dL 63 Non HDL Cholesterol <130 mg/dL 168 (H) Fasting Time hrs 12 VLDL Cholesterol <30 mg/dL 31 (H) TC:HDL Ratio <5.10 3.67 LDL Cholesterol <100 mg/dL 137 (H) LDL:HDL Ratio <2.54 2.17 Hemoglobin A1C 4.3 - 5.6 % 6.5 (H) Estimated Average Glucose mg/dL 140 TSH 0.270 - 4.200 mIU/L 0.828 Vitamin D 25 Hydroxy >=30.0 ng/mL 12.6 (L) Hep C Antibody IA Nonreactive Nonreactive Hemoglobin A1C (POCT) 4.3 - 5.6 % 5.9 ! Legend: (L) Low (H) High ! Abnormal ASSESSMENT/PLAN: 1. Hypertension, unspecified type - ICD9: 401.9, ICD10: I10 (primary diagnosis) - Controlled - Continue current medications - Recommend home blood pressure monitoring, to bring results to next visit - Encouraged sodium restriction, DASH or Mediterranean diet - Recommend regular aerobic exercise - Discussed need for and benefit of weight loss. BMI 42.02 kg/(m^2) - Reviewed risks of hypertension and principles of treatment 2. Insomnia, unspecified type - ICD9: 780.52, ICD10: G47.00 - chronic, pt reports trazodone as effective. Will continue trazodone 50 mg at bedtime. 3. Type 2 diabetes mellitus without complication, without long-term current use of insulin (HCC) - ICD9: 250.00, ICD10: E11.9 - pt is due for urine micro - ALBUMIN/CREATININE RATIO, URINE 4. Screening for osteoporosis - ICD9: V82.81, ICD10: Z13.820 - DXA-AXIAL SKELETO- BD DXA TRABECULAR BONE SCORE (TBS) 5. Asymptomatic menopause - ICD9: V49.81, ICD10: Z78.0 - DXA-AXIAL SKELETON - BD DXA TRABECULAR BONE SCORE (TBS) All of the above discussed with the patient in detail. Patient is in agreement with the above plan. Moises Malcolm APRN.HUMAN MACHINE INTERFACE ENGINEER documented in this encounter [facility] 11-30-2023 Note IMPRESSION: 1. Stable right TKA 2. Progressive left knee osteoarthrosis Head Girls Golf Coach: ROBB Transcribe Date/Time: Nov 30 2023 3:04P Dictated by : NATHAN BRADLEY MD This examination was interpreted and the report reviewed and electronically signed by: NATHAN BRADLEY MD on Nov 30 2023 3:05PM [facility] 11-30-2023 History of Present illness Narrative Associated Order(s): Large Joint Arthro/Inj: L knee joint Post-Procedure Diagnose(s): Primary osteoarthritis of left knee Images from the original note were not included. [id number] Ms. Llamas was last seen for left shoulder pain three years. had the following plan implemented given a prescription for Medrol Dosepak. She presents today for Follow Up and Pain of the Left Knee and Follow Up and Knee Replacement of the Right Knee. She is complaining primarily of left knee pain. States it is worse with weightbearing and worse with ascending/descending steps. Review of Systems Constitutional: Negative for fever. Respiratory: Negative for cough and shortness of breath. Cardiovascular: Negative for chest pain. History: PAIN EVALUATION 11/30/2023 1423 Pain Level: 10 Pain Location: Knee-Left Description: Sharp;Aching;Throbbing Duration Amount of Time: -- ongoing Frequency: Continuous Intervention/Comfort measure: Positioning;Relaxation The patient denies swelling, warmth, discharge, drainage, fevers, chills, sweats. She reports compliance with therapy, sling/splint/ambulatory device/dressing/wound care, and the use of medications. Previous treatments have included steroid injections. She reports no change in past medical & surgical history, medications, allergies, social history, family history and review of systems since last visit, with the exception of the following: None Radiographs: Rays today shows significant medial compartment osteoarthritis where she is [id number] and moderate patellofemoral joint arthritis. Physical Examination: Inspection Skin Positive: Swelling. Incision No evidence of surgical incisions. Atrophy No evidence of muscular atrophy. Range of Motion Knee 5-90 degrees Patella Decreased patellar mobility Palpation Effusion 1+ effusion Tenderness medial joint line Crepitance Positive palpable patellofemoral and medial compartment crepitance Meniscus Negative medial and lateral Linus's test Stability Positive valgus instability, remainder of stability exam is normal Procedure: Large Joint Arthro/Inj: L knee joint Informed Consent Consent Obtained: Verbal [place] Protocol A moment to CARE was completed. SIGN IN Personnel directly involved with the procedure wore the appropriate PPE. Special Equipment: N/A Patient/Surrogate Stated/Verified: Patient name, Date of , Relevant allergies and Intended procedure TIME OUT Intended patient and procedure match the source document(s). Consent documented and matches the intended procedure. Relevant labs, photos, and/or imaging studies have been reviewed. Correct side/site marked and visible. Medications required for procedure verified. No fire risk assessment and interventions applicable. No implant(s) inserted. 11/30/2023 2:41 PM The procedure site was prepped in the usual sterile fashion. Site: L knee joint Medications: 12 mg betamethasone acetate-betamethasone sodium phosphate 6 mg/mL Anesthetics: 4 mL lidocaine (PF) 10 mg/mL (1 %) Outcome: Tolerated well, no immediate complications Post-injection instructions were reviewed with the patient and the patient voiced understanding of these instructions. SIGN OUT No specimen collected. No instruments, equipment or retained foreign bodies applicable. Post-procedure follow-up management communicated and Plan of Care Visit completed when applicable Assessment: Left knee pain secondary to severe medial compartment osteoarthritis. We have discussed the various treatment options including a trial of a corticosteroid injection versus seek approval for viscosupplementation versus arthroplasty. She would like to try the cortisone first. If this fails to provide any significant relief she would consider arthroplasty at that point. Plan: 1. Continue weightbearing as tolerated 2. Corticosteroid injection left knee as noted above 3. Follow-up 1 month for repeat clinical evaluation documented in this encounter [facility] 11-30-2023 History of Present illness Narrative Radiology Service Progress Note PATIENT NAME: Caden Llamas DATE OF SERVICE: November 30, 2023 TIME: 2:21 PM PATIENT IDENTITY VERIFICATION COMPLETED USING TWO (2) IDENTIFIERS: Name and Date of confirmed by patient verbally. FALL SCREENING: Has the patient had 2 falls in the last year or 1 fall with injury or currently using an Ambulatory Assistive Device (Walker, Cane, Wheelchair, Crutches, etc.)? No PATIENT GENDER DATA: Female. status: : No status: NO. PATIENT RELEVANT IMPLANT DATA REVIEWED: Not Applicable PATIENT PRESENTS WITH AN IMPLANTABLE OR ATTACHED PLASTERER FOREMAN: No RADIOLOGY DEPARTMENT: General X-ray: Exam(s) Completed: Lower Extremity X-Ray(s): Knee, AP / Lat / Merchant Bilateral and Wt. Bearing PERIPHERAL IV DATA: Not applicable SIGNED BY: Ruby Page November 30, 2023 2:21 PM documented in this encounter [facility] 11-30-2023 Note HNO ID: [id number] Author: MITCHEL KRAUSE Tech Service: ? Author Type: Veterans' Counselor Type: Progress Notes Filed: 11/30/2023 14:21 Note Text: Radiology Service Progress Note PATIENT NAME: Caden Llamas DATE OF SERVICE: November 30, 2023 TIME: 2:21 PM PATIENT IDENTITY VERIFICATION COMPLETED USING TWO (2) IDENTIFIERS: Name and Date of confirmed by patient verbally. FALL SCREENING: Has the patient had 2 falls in the last year or 1 fall with injury or currently using an Ambulatory Assistive Device (Walker, Cane, Wheelchair, Crutches, etc.)? No PATIENT GENDER DATA: Female. status: : No status: NO. PATIENT RELEVANT IMPLANT DATA REVIEWED: Not Applicable PATIENT PRESENTS WITH AN IMPLANTABLE OR ATTACHED PLASTERER FOREMAN: No RADIOLOGY DEPARTMENT: General X-ray: Exam(s) Completed: Lower Extremity X-Ray(s): Knee, AP / Lat / Merchant Bilateral and Wt. Bearing PERIPHERAL IV DATA: Not applicable SIGNED BY: Ruby Page November 30, 2023 2:21 PM [facility] 11-02-2023 Telephone encounter Note Called pt let her know form was completed and faxed to the [employer] Claudia Caldwell MA [facility] 11-02-2023 Miscellaneous Notes Called pt let her know form was completed and faxed to the [employer] Claudia Caldwell MA Form completed given to Claudia JOHNSON Pt called stating that her electric is getting ready to turn off. Pt stated she uses her knee ice machine and wont be able to use it if power gets shut off. Form was faxed form on CN desk Claudia Caldwell MA documented in this encounter [facility] 11-02-2023 Telephone encounter Note Form completed given to Claudia JOHNSON [facility] 11-02-2023 Telephone encounter Note Pt called stating that her electric is getting ready to turn off. Pt stated she uses her knee ice machine and wont be able to use it if power gets shut off. Form was faxed form on CN desk Claudia Caldwell MA [facility] 10-26-2023 Instructions Moises Malcolm APRN.HUMAN MACHINE INTERFACE ENGINEER - 10/26/2023 3:20 PM EDT ASSESSMENT/PLAN: 1. Type 2 diabetes mellitus without complication, without long-term current use of insulin (HCC) - ICD9: 250.00, ICD10: E11.9 (primary diagnosis) - Controlled - Continue current medications - Blood glucose monitoring on a once daily schedule - Counseled on healthy diet and regular exercise - Discussed need for and benefit of weight loss. BMI 42.82 kg/(m^2) - Discussed diabetic education issues of diabetes complications and monitoring required, hypoglycemic/hyperglycemic symptoms, medication-specific side effects and monitoring, and diabetic sick day rules - HEMOGLOBIN A1C (POC) 2. Hypertension, unspecified type - ICD9: 401.9, ICD10: I10 - Controlled - Continue current medications - Recommend home blood pressure monitoring, to bring results to next visit - Encouraged sodium restriction, DASH or Mediterranean diet - Recommend regular aerobic exercise - Discussed need for and benefit of weight loss. BMI 42.82 kg/(m^2) - Reviewed risks of hypertension and principles of treatment - AMLODIPINE 5 MG TABLET 3. Atrial fibrillation, unspecified type (HCC) - ICD9: 427.31, ICD10: I48.91 - Chronic stable. - continue coreg daily and management with Dr Broderick. 4. RUTH (obstructive sleep apnea) - ICD9: 327.23, ICD10: G47.33 - Chronic not controlled 5. Other polyneuropathy - ICD9: 357.89, ICD10: G62.89 - chronic controlled on gabapentin. Worsens at night. - GABAPENTIN 800 MG TABLET 6. Insomnia, unspecified type - ICD9: 780.52, ICD10: G47.00 - chronic, - reviewed good sleep hygiene - will start trazodone 50 mg at bedtime. If not effective may increase to 100 mg after 2 wks. - call if persists or worsens 7. Morbidly obese (HCC) - ICD9: 278.01, ICD10: E66.01 Stable - Behavioral intervention Moises Malcolm APRN.HUMAN MACHINE INTERFACE ENGINEER documented in this encounter [facility] 10-26-2023 History of Present illness Narrative SUBJECTIVE: Caden Llamas is a 68 year old female who presents in follow up of HTN. She was new to me at last ov on 04/16/23. PMH HTN, Afib, diet controlled DM, HLD, neuropathy, asthma, brain aneurysm. She was seen for fecal incontinence. She was referred to GI. Patient denies changes in health since last office visit. Reports feeling well. Denies concerns or complaints today. Needs prescription refills. I reviewed patients past medical, surgical, social, and family histories today and updated chart. Allergies, chronic medications, and supplements were also reviewed and list is now up to date. HTN: Ms. Llamas indicates that she is feeling well and denies any symptoms referable to elevated blood pressure. Specifically denies headache, chest pain, palpitations, dyspnea, peripheral edema, claudication symptoms, orthopnea, fatigue, and PND. Patient denies any side effects of her medication(s) and is compliant with their regimen. She does check BP's away from this office with average BP's in the 140s/60-70s range. Caden has limited mobility and can not participate in aerobic exercise. She watches her diet for sodium, low fat and low cholesterol generally not very much. She does not know her dose of norvasc she is taking. She has 2 different doses on med list. She Is taking coreg 12.5 mg once daily. Last 3 Encounter BP Readings: Date: BP: 04/16/2023 128/78 07/07/2019 173/91 07/04/2019 188/93 Afib: She is seeing [facility] Dr Broderick in [place]. She has an appt 05/14/23. She is taking Coreg 12.5 mg once daily instead of twice daily. She reports when her heart rate goes up she has gone to the ER. Last time end of January. Reports she was not able to be on a blood thinner in the past due to coiling for cerebral aneurysm. DM: Dx 4 yrs ago. States she believes in ollie healing and it just went away. Last HGB A1C 6.5% 04/2023. She does not take anything for this. Asthma: Dx in her 40s. Controlled. States she has an albuerol inhaler she will use. Acitivity like going up and down stairs she will have to use it. At most once every 2 wks. Denies hospitalizations or ER visits. RUTH: chronic, she does not wear CPAP. States she can't tolerate it. Denies day time sleepiness. Hx brain aneurysm: 2014 and had coiling. She was seeing Dr Keith, neurology. Obesity: pt states her prevoius PCP wanted her to have bariatric and she does not want to do this Neuropathy: chronic. Bilateral lower legs below knees, especially feet. Reports worse at night. She has been on gabapentin for this for several years. Preventative: She is due for her mammogram. this was ordered last ov and never completed. She reports she had bone density last year. Reports last colonoscopy >5 yrs ago. Some elements of above documentation were copied from my progress note of 04/16/23 and have been reexamined and updated where appropriate. All elements reflect the current assessment and medical decision making today . PAST MEDICAL HISTORY Diagnosis Date Active asthma Anxiety Arthritis of knee, left 10/21/2012 Brain aneurysm Diabetes mellitus type 2, uncomplicated (HCC) Fibroids Hyperlipidemia LDL goal < 100 02/25/2013 Hypertension Morbidly obese (HCC) 10/20/2018 RUTH (obstructive sleep apnea) 10/20/2018 Peripheral neuropathy 10/20/2018 Pulmonary embolism ([facility]) 12/13/2012 Right shoulder injury 10/21/2012 Stroke ([facility]) PAST SURGICAL HISTORY Procedure Laterality Date [...] [Oxycodone* Itching Current Outpatient Medications Medication Sig amLODIPine (NORVASC) 2.5 mg tablet take 1 tablet by mouth every day ergocalciferol 50,000 unit capsule (VITAMIN D2, DRISDOL) [...] as instructed every 4 hours as needed. ferrous sulfate 325 mg (65 mg iron) tablet Take 325 mg by mouth daily with breakfast. CPAP No current facility-administered medications for this visit. Review of Systems Constitutional: Negative for chills, diaphoresis, fever, malaise/fatigue and weight loss. HENT: Negative for congestion, ear pain, sore throat and tinnitus. Eyes: Negative for blurred vision, double vision, photophobia and pain. Respiratory: Negative for cough, sputum production, shortness of breath and wheezing. Cardiovascular: Negative for chest pain, palpitations, orthopnea and leg swelling. Gastrointestinal: Negative for abdominal pain, blood in stool, constipation, diarrhea, heartburn, melena, nausea and vomiting. Genitourinary: Negative for dysuria, frequency, hematuria and urgency. Musculoskeletal: Negative for back pain, falls, joint pain, myalgias and neck pain. Skin: Negative for itching and rash. Neurological: Negative for dizziness, tingling, tremors, sensory change, speech change, focal weakness, weakness and headaches. Endo/Heme/Allergies: Negative for environmental allergies and polydipsia. Does not bruise/bleed easily. Psychiatric/Behavioral: Negative for depression and substance abuse. The patient has insomnia. The patient is not nervous/anxious. She reports she is not able to fall asleep. She reports she has tried all otc medications. States she has tried everything. 10/26/23 1436 10/26/23 1501 BP: 142/80 132/80 BP Site: Left Arm BP Position: Sitting BP Cuff Size: Regular Adult Pulse: 69 Resp: 18 Temp: 36.8 C (98.2 F) TempSrc: Oral SpO2: 98% Weight: 107 kg (236 lb) Height: 158.1 cm (5' 2.25) Physical Exam Vitals reviewed. Constitutional: General: She is not in acute distress. Appearance: She is obese. She is not ill-appearing. HENT: Head: Normocephalic and atraumatic. Neck: Vascular: No carotid bruit. Cardiovascular: Rate and Rhythm: Normal rate and regular rhythm. Pulses: Normal pulses. Carotid pulses are 2+ on the right side and 2+ on the left side. Radial pulses are 2+ on the right side and 2+ on the left side. Heart sounds: Normal heart sounds, S1 normal and S2 normal. No murmur heard. Pulmonary: Effort: Pulmonary effort is normal. No accessory muscle usage or respiratory distress. Breath sounds: Normal breath sounds. No decreased breath sounds, wheezing, rhonchi or rales. Abdominal: General: Bowel sounds are normal. Palpations: Abdomen is soft. Musculoskeletal: Right lower leg: No edema. Left lower leg: No edema. Lymphadenopathy: Cervical: No cervical adenopathy. Skin: General: Skin is warm and dry. Neurological: Mental Status: She is alert and oriented to person, place, and time. Psychiatric: Mood and Affect: Mood normal. Behavior: Behavior normal. Thought Content: Thought content normal. Judgment: Judgment normal. Latest Ref Rng 06/01/2020 04/16/2023 Protein, Total 6.3 - 8.0 g/dL 7.2 Albumin 3.9 - 4.9 g/dL 3.7 (L) Calcium 8.5 - 10.2 mg/dL 8.9 Bilirubin, Total 0.2 - 1.3 mg/dL 0.3 Alkaline Phosphatase 34 - 123 U/L 145 (H) AST 13 - 35 U/L 19 ALT 7 - 38 U/L 14 Glucose 74 - 99 mg/dL 87 BUN 7 - 21 mg/dL 9 Creatinine 0.58 - 0.96 mg/dL 0.97 (H) Sodium 136 - 144 mmol/L 140 Potassium 3.7 - 5.1 mmol/L 4.4 Chloride 97 - 105 mmol/L 105 CO2 22 - 30 mmol/L 28 Anion Gap 9 - 18 mmol/L 7 (L) eGFR >=60 mL/min/1.73m 63 WBC 3.70 - 11.00 k/uL 7.59 RBC 3.90 - 5.20 m/uL 4.16 Hemoglobin 11.5 - 15.5 g/dL 10.9 (L) Hematocrit 36.0 - 46.0 % 37.0 MCV 80.0 - 100.0 fL 88.9 MCH 26.0 - 34.0 pg 26.2 MCHC 30.5 - 36.0 g/dL 29.5 (L) RDW-CV 11.5 - 15.0 % 14.2 Platelet Count 150 - 400 k/uL 279 MPV 9.0 - 12.7 fL 10.7 Cholesterol, Total <200 mg/dL 231 (H) Triglyceride <150 mg/dL 156 (H) HDL Cholesterol >39 mg/dL 63 Non HDL Cholesterol <130 mg/dL 168 (H) Fasting Time hrs 12 VLDL Cholesterol <30 mg/dL 31 (H) TC:HDL Ratio <5.10 3.67 LDL Cholesterol <100 mg/dL 137 (H) LDL:HDL Ratio <2.54 2.17 Hemoglobin A1C 4.3 - 5.6 % 6.2 (H) 6.5 (H) Estimated Average Glucose mg/dL 140 TSH 0.270 - 4.200 mIU/L 0.828 Vitamin D 25 Hydroxy >=30.0 ng/mL 12.6 (L) Hep C Antibody IA Nonreactive Nonreactive Legend: (H) High (L) Low Office Visit on 10/26/2023 Component Date Value Ref Range Status Hemoglobin A1C (POCT) 10/26/2023 5.9 (A) 4.3 - 5.6 % Final Comment: Location:[facility], [address] [place] [address], [place], [place], [address] Point of care (POC) Hemoglobin A1c (HGBA1C) testing is intended to assess glucose control and provide a management tool for patients known to have diabetes and their healthcare providers. Target HGBA1C levels may depend on specific clinical circumstances. POC HGBA1C is not intended for use as a diagnostic or screening test; laboratory-based testing should be used for diagnostic purposes. The following information is supplemental and may not be applicable to specific diabetes management situations: The POC device radiology resident provides a normal range of 4.2% to 6.5% for the HGBA1C POC test. However, the [place] [employer] guidelines indicate that patients with HGBA1C in the range of 5.7% to 6.4% are at increased risk for development of diabetes and that intervention by lifestyle modification may be beneficial. A HGBA1C level greater than or equal to 6.5% is considered diagnostic of diabetes, pending confirmatory testing. Use of HGBA1C testing to evaluate glucose control may not be appropriate for patients with hemoglobin variants or other conditions (e.g. anemia) that alter red blood cell lifespan. ASSESSMENT/PLAN: 1. Type 2 diabetes mellitus without complication, without long-term current use of insulin (HCC) - ICD9: 250.00, ICD10: E11.9 (primary diagnosis) - Controlled - Continue current medications - Blood glucose monitoring on a once daily schedule - Counseled on healthy diet and regular exercise - Discussed need for and benefit of weight loss. BMI 42.82 kg/(m^2) - Discussed diabetic education issues of diabetes complications and monitoring required, hypoglycemic/hyperglycemic symptoms, medication-specific side effects and monitoring, and diabetic sick day rules - HEMOGLOBIN A1C (POC) 2. Hypertension, unspecified type - ICD9: 401.9, ICD10: I10 - Controlled - Continue current medications - Recommend home blood pressure monitoring, to bring results to next visit - Encouraged sodium restriction, DASH or Mediterranean diet - Recommend regular aerobic exercise - Discussed need for and benefit of weight loss. BMI 42.82 kg/(m^2) - Reviewed risks of hypertension and principles of treatment - AMLODIPINE 5 MG TABLET 3. Atrial fibrillation, unspecified type (HCC) - ICD9: 427.31, ICD10: I48.91 - Chronic stable. - continue coreg twice daily and management with Dr Broderick. 4. RUTH (obstructive sleep apnea) - ICD9: 327.23, ICD10: G47.33 - Chronic not controlled. Denies symptoms associated with sleep apnea 5. Other polyneuropathy - ICD9: 357.89, ICD10: G62.89 - chronic controlled on gabapentin. Worsens at night. Will re order gabapentin as previously ordered - GABAPENTIN 800 MG TABLET 6. Insomnia, unspecified type - ICD9: 780.52, ICD10: G47.00 - chronic, - reviewed good sleep hygiene - will start trazodone 50 mg at bedtime. If not effective may increase to 100 mg after 2 wks. - call if persists or worsens 7. Morbidly obese (HCC) - ICD9: 278.01, ICD10: E66.01 Stable - Behavioral intervention - exercise goal of 30-40 min daily Moises Malcolm APRN.CNP documented in this encounter [facility] 10-21-2023 Miscellaneous Notes No Show Documentation Caden Llamas no showed for an appointment on 10/21/23 with Moises Malcolm APRN.HUMAN MACHINE INTERFACE ENGINEER at 7:20 am. She was scheduled for follow up . She called and spoke with the patient regarding her missed appointment. Caden stated the reason that she missed her appointment was because she thought it was at 10:00 am . Resources discussed/offered to patient: reschedule appt No show determined to be fault of patient: Yes This is the patients second no show in the last 12 months. Patient was rescheduled for transferred to central scheduling to make appt. Letter sent through [employer] Is this the Third or Fourth No Show? Isabela Wilhelm October 21, 2023 11:34 AM 10/21/23 documented in this encounter [facility] 10-19-2023 Miscellaneous Notes pharmacy electronically requesting refills as follows: Last seen 04/16/23 . Last refill 07/20/23 . Requested Prescriptions Pending Prescriptions Disp Refills amLODIPine (NORVASC) 2.5 mg tablet [Pharmacy Med Name: AMLODIPINE BESYLATE 2.5 MG TAB] 90 tablet 0 Sig: take 1 tablet by mouth every day Please review and advise. Paula Galeas MA documented in this encounter [facility] 10-06-2023 Telephone encounter Note Patient scheduled [facility] 10-06-2023 Miscellaneous Notes Patient scheduled Called and it went straight to [facility] with phone # requesting return call. New patient Which knee? Previous injection? Surgery history? Will call after 8am to inquire about scheduling. Name of Caller: Caden Contact Reason for Appointment: Self Referral - Knee issues - wants to see about getting cortisone shots before Surgery becomes an option Office Name: Ortho Medication Refills need, if any: N/A Medication Name: N/A documented in this encounter [facility] 10-06-2023 Telephone encounter Note Called and it went straight to [facility] with phone # requesting return call. [facility] 10-06-2023 Telephone encounter Note New patient Which knee? Previous injection? Surgery history? Will call after 8am to inquire about scheduling. [employer] [facility] 10-05-2023 Telephone encounter Note Name of Caller: Caden Contact Reason for Appointment: Self Referral - Knee issues - wants to see about getting cortisone shots before Surgery becomes an option Office Name: Ortho Medication Refills need, if any: N/A Medication Name: N/A [facility] 04-16-2023 Instructions Moises Malcolm APRN.ELIZA - 04/16/2023 9:03 AM EDT BONE MINERAL DENSITY PATIENT INSTRUCTIONS ======= Bone mineral density testing measures the amount [...] usual activities immediately. documented in this encounter [facility] 04-16-2023 History of Present illness Narrative SUBJECTIVE: Caden Llamas is a 68 year old female who presents today to establish care and concerns for fecal incontinence. Previous PCP Dr Garcia. [facility] HTN and Afib, DM, HLD. Reports she [...] with average BP's in the 120s/40-50s range. Caden denies regular aerobic exercise. She watches her diet for sodium, low fat and low cholesterol generally not very much.She is taking norvasc 5 mg daily and she reports she stopped taking her coreg. Last 3 Encounter BP Readings: Date: BP: 04/16/2023 128/78 07/07/2019 173/91 07/04/2019 188/93 Afib: She is seeing [facility] Dr Broderick in [place]. She has an appt 05/14/23. She is [...] apnea) 10/20/2018 Peripheral neuropathy 10/20/2018 Pulmonary embolism ([facility]) 12/13/2012 Right shoulder injury 10/21/2012 Stroke ([facility]) PAST SURGICAL HISTORY Procedure Laterality Date [...] diet of 1000 mg/day for under 50, 5558-6150 mg/day for 50+ - Colorectal cancer screening [...] HEPATITIS C ANTIBODY IA WITH CONFIRMATION Moises Malcolm, KYELR.ELIZA I spent a total of 68 minutes on the date of the service which included preparing to see the patient, [id number] patient care, completing clinical documentation, obtaining and/or reviewing separately obtained history, performing a medically appropriate examination, counseling and educating the patient/family/caregiver, ordering medications, tests, or procedures, and communicating results to the patient/family/caregiver. documented in this encounter [facility] 02-12-2023 Discharge summary Note Date/Time February 12, 2023 10:45am [facility] Medical Records Department [address] [place] [address] Emergency Department Summary 02/12/23 MR#: [id number] Acct: [id number] Name: CADEN LLAMAS Rep #:[id number] : 1955 68 From: Galileo Fisher MD PCP: Dr. Ashleigh Garcia MD Status:REG E R Location: ED HPI History of Present Illness Chief Complaint: Chest Pain Detail of Chief Complaint: Chest pain and palpitations Informant: patient Onset/Context/Timing Onset: Hours Activity at onset: sudden Timing: Continuous Quality: Positive for Aching Location: Substernal Current Severity: Mild Maximum Severity: Moderate Worsened By: Nothing Relieved By: Nothing Associated Symptoms: Positive for Nausea, Dyspnea and Lightheadedness; Negative for Vomiting, Diaphoresis, Cough, Fever, Acid Reflux or Palpitations Narrative Narrative: Patient is a 68-year-old woman with history of paroxysmal atrial fibrillation and history of atrial flutter, obstructive sleep apnea, hypertension and prior PE and DVT. She is not on anticoagulant therapy because she was found to have acerebral aneurysm that required coiling. Patient denies leg pain, swelling discoloration. Patient denies orthopnea or PND. Patient denies fever, chills night sweats. Patient denies double vision, blurred vision or loss of vision. Patient denies trouble with speech or swallowing. Patient denies jaw pain, shoulder pain or back pain. Patient denies vomiting or diarrhea. Patient denies black or maroon-colored stool. Patient denies urinary symptoms. Prior Similar Symptoms: Yes Recent Illness/Hospitalization: No CVD Risk Factors: Positive for Hypertension, Diabetes and Hypercholesterolemia; Negative for Smoking PE Risk Factors: Positive for Prior DVT or PE; Negative for Recent Travel/Surgery, Recent Immobilization, Cancer or OCP + Smoking + >/=35 TAD Risk Factors: Positive for Hypertension; Negative for Marfan's Syndrome or Family History PFSH PFSH Medical History Anxiety and depression Contact with or suspected exposure to other viral communicable disease Contusion of left elbow, initial encounter Encounter for screening for COVID-19 Essential hypertension History of DVT (deep vein thrombosis) History of pulmonary embolism History of stroke Hyperlipidemia RUTH (obstructive sleep apnea) Paroxysmal atrial fibrillation Paroxysmal atrial flutter Type 2 diabetes mellitus Urinary tract infection Home Medications amlodipine 5 mg tablet 10 mg PO DAILY BLOOD PRESSURE 10/10/15 [History Last Taken 02/12/23] albuterol sulfate 90 mcg/actuation aerosol inhaler 2 puff inhalation Q4H PRN shortness of breath or wheezing 02/12/23 [History Last Taken 02/11/23] ferrous sulfate 325 mg (65 mg iron) tablet (Feosol) 325 mg PO DAILY supplement 02/12/23 [History Last Taken 02/12/23] gabapentin 800 mg tablet 800 mg PO DAILY nerve pain 02/12/23 [History Last Taken 02/11/23] Allergy/AdvReac Type Severity Reaction Status Date / Time lisinopril Allergy Unknown Unknown Verified 02/12/23 08:11 latex Allergy Rash Verified 02/12/23 08:11 oxycodone [Oxycodone] AdvReac Itching Verified 02/12/23 08:11 Family History Mother Diabetes Cancer Myocardial infarction Hypertension Father Myocardial infarction Heart disease Hypertension Brother Cancer Hypertension Sister Bipolar disorder Schizophrenia Hypertension Surgical History History of appendectomy History of carpal tunnel release History of cerebral aneurysm repair (~2012) History of cholecystectomy History of hysterectomy History of shoulder surgery History of total knee replacement Social History Smoking Status: Never smoker alcohol intake: never substance use type: does not use caffeine: Yes Type: carbonated beverages Number of servings: 1 ROS ROS ED Constitutional Constitutional ED: Denies chills, fever(s), subjective, sweats or weight loss Eyes Eyes: Reports none; Denies blurry vision, change in vision or diplopia ENT ENT ED: Denies ear pain, rhinorrhea or sore throat Cardiovascular Cardiovascular: Reports as per HPI, palpitations and racing heartbeat; Denies orthopnea or paroxysmal nocturnal dyspnea Respiratory/Chest Respiratory/Chest: Reports dyspnea; Denies cough, dyspnea on exertion, orthopnea or paroxysmal nocturnal dyspnea Gastrointestinal Gastrointestinal: Denies abdominal pain, diarrhea, melena or vomiting Genitourinary Genitourinary ED: Denies dysuria, hematuria or urinary frequency Musculoskeletal Musculoskeletal: Denies arthralgias, back pain, myalgias or neck pain Neurologic Neurologic: Reports headache(s); Denies paresthesias or weakness Psychiatric Psychiatric: Reports anxiety Endocrine Endocrinology: Denies cold intolerance or heat intolerance Hematologic/Lymphatic Hematologic/Lymphatic: Denies easy bleeding or easy bruising EXAM Physical Exam Const Vital Signs: 02/12/23 08:08 02/12/23 08:08 02/12/23 08:13 Temperature 97.2 F L Temperature Source Temporal Pulse Rate 142 H Respiratory Rate 18 Blood Pressure 121/80 H Blood Pressure Mean 93 Pulse Ox 99 Oxygen Delivery Method Room Air 02/12/23 10:08 Temperature Temperature Source Pulse Rate 76 Respiratory Rate 19 H Blood Pressure 152/98 H Blood Pressure Mean 116 Pulse Ox 97 Oxygen Delivery Method Room Air Positive well nourished and well developed General Appearance ED: well developed and NAD; Negative for pallor HEENT Reports TM's clear and moist mucous membranes normocephalic and atraumatic Tympanic Membrane ED: Yes TM's clear Eyes PERRL and EOMs intact bilaterally General Eye ED: Negative for pale conjunctiva or scleral icterus Neck no lymphadenopathy, supple and no JVD Neck Narrative: Trachea is midline. Chest Wall inspection of chest normal and palpation of chest normal Resp normal respiratory effort and clear to auscultation bilaterally Cardio regular rhythm, S1 normal heart sound, S2 normal heart sound and no murmurs Rate: tachycardic GI normal to inspection, nondistended, normoactive bowel sounds, soft to palpation, non-distended and no masses; Negative for hepatosplenomegaly Back/Spine no CVA tenderness and no thoracic nor lumbar tenderness Extremity normal to inspection Extremity Narrative: There is no asymmetry, swelling, discoloration, leg vein distention, palpable cords or tenderness along the distribution of the deep venous system. General Extremety ED: Negative for edema or pulses abnormal General Extremity: Negative for edema or pulses abnormal Neuro oriented x3, CN's II-XII intact bilaterally and no sensory deficits noted Sensorium / Orientation: awake and alert Motor Exam: strength 5/5 throughout Psych Mood & Affect: anxious Skin no rashes or lesions noted and no wounds General Skin Exam: Negative for jaundice, pallor or other MDM MDM MDM Narrative Medical decision making narrative: Monitor reveals a narrow complex tachycardia. Suspect atrial flutter. In light of patient's risk factors past history EKG, chest x-ray and appropriate blood work was obtained. EKG to rule out ischemia and determine rhythm. Chest x-ray to evaluate for CHF. CBC to assess H&H. BMP to assess electrolyte panel and renal function opponent and 2-hour troponin to evaluate for cardiac ischemia. 2-hour troponin is 13 with a delta of 3. These are both normal. Will discharge to home per discussion with Dr. Broderick. History & Record Review Discussion w/independent historian: Patient Lab Data Attestation: I reviewed the patient's lab results. Lab results narrative: CBC reveals anemia with normal indices. BMP is remarkable for a creatinine of 1.31 with a GFR of 52. Glucose is slightly evaded 113 with a normal CO2 anion gap. First troponin is normal at 10. Labs: Laboratory Results - last 24 hr 02/12/23 02/12/23 08:25 11:00 WBC 6.1 RBC 4.11 L Hgb 11.0 L Hct 35.0 L MCV 85.2 MCH 26.8 L MCHC 31.4 L RDW Std Deviation 41.7 RDW Coeff of Amandeep 13.4 Plt Count 319 MPV 9.3 Immature Gran % (Auto) 0.200 Neut % (Auto) 44.7 L Lymph % (Auto) 42.0 H Coffey % (Auto) 9.6 Eos % (Auto) 2.8 Baso % (Auto) 0.7 Absolute Neuts (auto) 2.7 Absolute Lymphs (auto) 2.57 Nucleated RBC % 0 Sodium 140 Potassium 3.7 Chloride 108 H Carbon Dioxide 25.0 Anion Gap 7 BUN 10 Creatinine 1.31 H Estim Creat Clear Calc 32.06 Est GFR (MDRD) Af Amer 52 L Est GFR (MDRD) Non-Af 43 L BUN/Creatinine Ratio 7.6 L Glucose 113 H Calcium 8.7 Troponin I High Sens 10 13 Radiography Chest X-Ray - ED: 1 View and Read by ED Physician (View portable chest x-ray reveals mild cardiomegaly. Limited in-store volume. There is no obvious effusion or infiltrate noted. Osseous structures are unremarkable. This was independently reviewed interpreted by me.) Diagnostic Testing: Clinical Impression(s) from Imaging Studies Chest X-Ray 02/12/23 08:32 IMPRESSION: Mild cardiomegaly. The lungs are clear. Electronically Signed: Tico Hanley MD at 8:44 EDT , Management Discussion w/another healthcare provider: [employer] (Paged Dr. Broderick. Was made aware of patient presentation. Plan is to call office for follow-up in the next week.) Treatment and Re-Evaluation :: Patient and were informed of laboratory results and need for repeat troponin. We will contact her global risk management director Dr. Sauceda after second troponin. EKG in my opinion reveals atrial flutter with a 2-1 block. In light of her heart rate of 143 and now 73 with a normal rhythm suspect that she was in atrial flutter with a 2-1 block. She converted spontaneously. She informed she is not a candidate for anticoagulation because of the coiled cerebral aneurysm. Patient is complaining of headache and chest pain at this time. 4 mg of morphine was ordered. Discharge Plan Triage Chief Complaint: Chest Pain ED Provider: Galileo Fisher Dx/Rx/DC Orders Clinical Impression: Atrial flutter, paroxysmal, Essential hypertension, RUTH (obstructive sleep apnea), History of cerebral aneurysm repair, Chest pain, Acute dyspnea Instructions: ED Atrial Flutter Prescriptions: No Action amlodipine 5 MG tablet 10 mg PO DAILY gabapentin 800 mg tablet 800 mg PO DAILY ferrous sulfate [Feosol] 325 mg (65 mg iron) tablet 325 mg PO DAILY Patient Comments: PT GETS OTC IRON SUPPLEMENT AND TAKES ONE TABLET/CAPSULE ONCE DAILY albuterol sulfate 90 mcg/actuation HFA aerosol inhaler 2 puff INHALATION Q4H PRN (Reason: shortness of breath or wheezing) Primary Care Provider: Ashleigh Garcia Chi Referrals: Alfonzo Broderick MD [Med Staff - Active Staff] - As soon as possible Ashleigh Garcia Chi, MD [Primary Care Provider] - Activity Restrictions/Additional Instructions: For appointment to be seen within the next 5 to 7 days. Disposition Disposition: Home, Self Care What to do if you have Problems For any increased pain, shortness of breath, bleeding, nausea or vomiting, chestpain, or any unexpected problems, contact your Primary Care Provider. Call [facility] ([phone]) or report to the closest Emergency Room. Call 911 if necessary. 02/12/23 1237 <Electronically signed by Galileo Fisher MD> Cosigner Signature (if applicable): CC: Dr. Ashleigh Garcia MD ~ Signed [facility] [facility] [place] Work Phone: 1(753) 290-694908-03-2023 Hospital Discharge instructions Additional Instructions For appointment to be seen within the next 5 to 7 days.[facility] [place] Work Phone: [phone] 440-121803-17-2023 Telephone encounter Note* Telephone Encounter - Ladonna Hu LPN - 09/26/2022 8:12 AM EDT Orders cancelled through financial file TE [id number] Note* Addendum Note - Ladonna Hu LPN - 09/26/2022 8:12 AM EDTAddended by: LADONNA HU on: 09/26/2022 08:12 AM Modules accepted: Orders [id number] Miscellaneous Notes* Addendum Note - Ladonna Hu LPN - 09/26/2022 8:12 AM EDTAddended by: LADONNA HU on: 09/26/2022 08:12 AM Modules accepted: Orders * Telephone Encounter - Ladonna Hu LPN - 09/26/2022 8:08 AM EDT Patient contacted the office today, as they no longer wish to proceed with workup towards weightloss surgery. Reason for withdraw from program: Reason for withdraw from program: patient stated she has recentlyfound out she has serious health issues she [...] EGD is to be cancelled via pool: [facility] ALS CLINICAL DIETARY AIDE COOK (List Surgeon as provider in the TE) [] Clinical staff to note in specialty comment date patient has withdrawn from the program [] Sent to [facility] and Surgical Navigation and Financial Teams for notification. * Telephone Encounter - Ladonna Hu LPN - 09/26/2022 8:06 AM EDT Patient called to cancel EGD 09/25/2022. Patient states that she needs to drop out of program at this time due to other health issues. PER ALS * Telephone Encounter - Bessy Sr - 09/17/2022 1:01 PM EST Just spoke with this patient, she has been rescheduled for BNA Initial, and New D/E with [facility]. Patient is aware of the 129.50 fee, asked to be paid at the time of service. * Telephone Encounter - Olivia Jo - 09/17/2022 8:42 AM EST Patient missed BNA and D/E. Spoke with pt and still interested in program. Please reschedule pt. Thanks * Addendum Note - Nancy Aldridge DO - 08/25/2022 8:41 AM ESTAddended by: NANCY ALDRIDGE on: 08/25/2022 08:41 AM Modules accepted: Orders * Addendum Note - Yanely Peralta - 08/21/2022 3:43 PM ESTAddended by: YANELY PERALTA on: 08/21/2022 03:43 PM Modules accepted: Orders * Telephone Encounter - Yanely Peralta - 08/21/2022 3:42 PM EST ORDERS PENDED * Telephone Encounter - Yanely Peralta - 08/21/2022 3:33 PM EST PLAN Encounter Diagnoses Name Primary? Primary hypertension High cholesterol Gastroesophageal reflux disease without esophagitis Morbid obesity with BMI of 45.0-49.9, adult (CMS/HCC) (HCC) I have recommended proceeding with the evaluation and work-up for the primary procedure as outlinedbelow: PATIENT SUMMARY Caden TAVAREZ 67 y.o. female with Body mass index [...] MANAGEMENT Psychology [x] Dietitian [x] Cardiology [x] Dr. Patiño Clearance from Dr. Breaux with [facility] for DVT prophylaxis post-operatively. Pulmonary [x] Others [] []Heme/Onc []Psychiatry []Pain mgmt PSD [x] [...] related to anesthesia, conversion from laparoscopic to andopen procedure, the need for reoperative or endoscopic therapy, the potential for prolonged mechanical ventilation, and . All questions were fully answered to the patient's satisfaction and theywish to proceed with surgical intervention. Sleeve The face to face encounter was spent counseling the patient and discussing the risks,benefits and options of surgery as well as the perioperative care plan. The patient was seen and examined independently and relevant data including a full chart rreview was performed by myself. Nancy Aldridge FACS, [facility] Director - Minimally Invasive Surgery * Telephone Encounter - Kelsie Cole - 07/29/2022 1:13 PM EST freda Ramsay [facility] surgical patient Navigation & Financial Counseling Discussion Patient Communication: In office SURGEON: [] JMarya [] AD [x] MP [] TB [] LM PROCEDURE: [] LRYGB [x] LSG [] LYLE-S [] LYLE [] UNDECIDED [] REV: SPECIFY: Confirmed pt wants to continue with surgical program/plan [] YES [] NO (complete program withdrawalnote/process) CO-MORBIDS: [] NONE [] DM [x]HTN [x] RUTH []GERD [] OTH: HL PRIVATE PAY: [x] NO []YES DATE OF INITIAL BENEFITS VERIFICATION: TRANSFER FU: [] YES [x] NO PRIMARY INSURANCE: Payor: Do It Original / Plan: Do It Original / Product Type: Commercial / BENEFIT ON PLAN: [x] NO [] YES BENEFIT MAX: [] NO [] YES -- BENEFIT MAX: $ EMPLOYER: DIET AND EXERCISE (DE) REQUIREMENT PRIMARY [] NONE []3M [] 6M []9M [] Medicare 4 Months [] SPR (3M) []OTHER: SECONDARY INSURANCE: YES - [facility] Medicare Advantage BENEFIT ON PLAN: [] [...] 1) Scheduled at new pt surgeon visit: Car Varnisher (RD) for a Nutrition Assessment (BNA) and Pre-operative Diet and Exercise (DE)appointment #1. [x] Patient reminded to arrive 15 [...] before and after surgery. documented in this [facility]03-17-2023 Miscellaneous Notes* Telephone Encounter - Ladonna Hu LPN - 09/26/2022 8:12 AM EDT Orders cancelled through financial file TE * Telephone Encounter - René Magana MA - 09/19/2022 10:04 AM EST Patient called to cancel EGD 09/25/2022. Patient states that she needs to drop out of program at this time due to other health issues. documented in this [facility]SMer[facility] St. [facility] HospitalRizioa56-50-5067 Telephone encounter Note* Telephone Encounter - Ladonna Hu LPN - 09/26/2022 8:08 AM EDT Patient contacted the office today, as they no longer wish to proceed with workup towards weightloss surgery. Reason for withdraw from program: Reason for withdraw from program: patient stated she has recentlyfound out she has serious health issues she [...] EGD is to be cancelled via pool: [facility] ALS CLINICAL DIETARY AIDE COOK (List Surgeon as provider in the TE) [] Clinical staff to note in specialty comment date patient has withdrawn from the program [] Sent to [facility] and Surgical Navigation and Financial Teams for notification. [facility] [id number] Telephone encounter Note* Telephone Encounter - Ladonna Hu LPN - 09/26/2022 8:06 AM EDT Patient called to cancel EGD 09/25/2022. Patient states that she needs to drop out of program at this time due to other health issues. PER ALS [facility] [id number] Telephone encounter Note* Telephone Encounter - René Magana MA - 09/19/2022 10:04 AM EST Patient called to cancel EGD 09/25/2022. Patient states that she needs to drop out of program at this time due to other health issues. [facility] [id number] Telephone encounter Note* Telephone Encounter - Olivia Jo - 09/17/2022 1:23 PM EST PT HAS BEEN SCHEDULED FOR BNA ON 10/24 AND D/E ON 11/07. [facility] HospitalQcjuhv77-85-2304 Miscellaneous Notes* Telephone Encounter - Olivia Jo - 09/17/2022 1:23 PM EST PT HAS BEEN SCHEDULED FOR BNA ON 10/24 AND D/E ON 11/07. * Telephone Encounter - Olivia Barbosase - 09/17/2022 8:45 AM EST WMI EGD auth completion and Navigational Chart review: BNA Complete NO D/E in Progress NO Psych Eval Scheduled/Complete NO, X Mini Chart Review completed, patient okay to move forward with EGD. (BNA and 1st DE completed, and Psych apt scheduled or plan for completion in process) X EGD Auth WAS DENIED/ SENT TE TO [facility] FOR PEER TO PEER Patient called for Endoscopy/C-Scope appointment reminder and COVID screening/testing update. Reminded patient of Endoscopy/C-Scope scheduled for 09/25/22. Report time: 11:00am documented in this [facility]03-08-2023 Telephone encounter Note* Telephone Encounter - Bessy Sr - 09/17/2022 1:01 PM EST Just spoke with this patient, she has been [facility] Initial[facility] Patient is aware of the 129.50 fee, asked to be paid at the time of service. [facility] [id number] Miscellaneous Notes* Telephone Encounter - Bessy Sr - 09/17/2022 1:01 PM EST Just spoke with this patient, she has been rescheduled for BNA Initial, and New D/E with [facility]. Patient is aware of the 129.50 fee, asked to be paid at the time of service. * Telephone Encounter - Olivia oJ - 09/17/2022 8:42 AM EST Patient missed BNA and D/E. Spoke with pt and still interested in program. Please reschedule pt. Thanks * Addendum Note - Nancy Aldridge DO - 08/25/2022 8:41 AM ESTAddended by: NANCY ALDRIDGE on: 08/25/2022 08:41 AM Modules accepted: Orders * Addendum Note - Yanely Peralta - 08/21/2022 3:43 PM ESTAddended by: YANELY PERALTA on: 08/21/2022 03:43 PM Modules accepted: Orders * Telephone Encounter - Yanely Peralta - 08/21/2022 3:42 PM EST ORDERS PENDED * Telephone Encounter - Yanely Peralta - 08/21/2022 3:33 PM EST PLAN Encounter Diagnoses Name Primary? Primary hypertension High cholesterol Gastroesophageal reflux disease without esophagitis Morbid obesity with BMI of 45.0-49.9, adult ([facility]/HCC) ([facility]) I have recommended proceeding with the evaluation and work-up for the primary procedure as outlinedbelow: PATIENT SUMMARY Caden TAVAREZ 67 y.o. female with Body mass index [...] MANAGEMENT Psychology [x] Dietitian [x] Cardiology [x] Dr. Patiño Clearance from Dr. Breaux with [facility] for DVT prophylaxis post-operatively. Pulmonary [x] Others [] []Heme/Onc []Psychiatry []Pain mgmt PSD [x] [...] related to anesthesia, conversion from laparoscopic to andopen procedure, the need for reoperative or endoscopic therapy, the potential for prolonged mechanical ventilation, and . All questions were fully answered to the patient's satisfaction and theywish to proceed with surgical intervention. Sleeve The face to face encounter was spent counseling the patient and discussing the risks,benefits and options of surgery as well as the perioperative care plan. The patient was seen and examined independently and relevant data including a full chart rreview was performed by myself. SHAMEKA Haynes FACSYolanda Director - Minimally Invasive Surgery * Telephone Encounter - Kelsie Douglas - 07/29/2022 1:13 PM EST freda Ramsay [facility] surgical patient Navigation & Financial Counseling Discussion Patient Communication: In office SURGEON: [] LANCE [] AD [x] MP [] TB [] LM PROCEDURE: [] LRYGB [x] LSG [] LYLE-S [] LYLE [] UNDECIDED [] REV: SPECIFY: Confirmed pt wants to continue with surgical program/plan [] YES [] NO (complete program withdrawalnote/process) CO-MORBIDS: [] NONE [] DM [x]HTN [x] RUTH []GERD [] OTH: HL PRIVATE PAY: [x] NO []YES DATE OF INITIAL BENEFITS VERIFICATION: TRANSFER FU: [] YES [x] NO PRIMARY INSURANCE: Payor: Do It Original / Plan: Do It Original / Product Type: Commercial / BENEFIT ON PLAN: [x] NO [] YES BENEFIT MAX: [] NO [] YES -- BENEFIT MAX: $ EMPLOYER: DIET AND EXERCISE (DE) REQUIREMENT PRIMARY [] NONE []3M [] 6M []9M [] Medicare 4 Months [] SPR (3M) []OTHER: SECONDARY INSURANCE: YES - [facility] Medicare Advantage BENEFIT ON PLAN: [] [...] 1) Scheduled at new pt surgeon visit: Car Varnisher (RD) for a Nutrition Assessment (BNA) and Pre-operative Diet and Exercise (DE)appointment #1. [x] Patient reminded to arrive 15 [...] before and after surgery. documented in this encounterSMercy Health St. [facility] HospitalNmizfl25-39-8185 Telephone encounter Note* Telephone Encounter - Olivia Jo - 09/17/2022 8:45 AM EST WMI EGD auth completion and Navigational Chart review: BNA Complete NO D/E in Progress NO Psych Eval Scheduled/Complete NO, X Mini Chart Review completed, patient okay to move forward with EGD. (BNA and 1st DE completed, and Psych apt scheduled or plan for completion in process) X EGD Auth WAS DENIED/ SENT TE TO [facility] FOR PEER TO PEER Patient called for Endoscopy/C-Scope appointment reminder and COVID screening/testing update. Reminded patient of Endoscopy/C-Scope scheduled for 09/25/22. Report time: 11:00am [place] [id number] Telephone encounter Note* Telephone Encounter - Olivia Jo - 09/17/2022 8:42 AM EST Patient missed BNA and D/E. Spoke with pt and still interested in program. Please reschedule pt. Thanks [facility] [id number] Telephone encounter Note* Telephone Encounter - Ladonna Hu LPN - 09/15/2022 10:26 AM EST New insurance noted [place] [id number] Miscellaneous Notes* Telephone Encounter - Ladonna Hu LPN - 09/15/2022 10:26 AM EST New insurance noted * Telephone Encounter - Curtis Montero - 09/15/2022 9:50 AM EST Called patient and LVM to schedule visits. * Telephone Encounter - Sharon Mcdonald LPN - 09/12/2022 3:39 PM EST Offsites, can you please try to get her R/S for D/E and BNA? She maybe cancelled d/t insurance change or she does not know the requirements? * Telephone Encounter - Sharon Mcdonald LPN - 09/12/2022 3:31 PM EST Noted. Thank you. I added note to CCNDanielle Beatriz on file is excluded. [employer] Medicare 3 months D/E. * Telephone Encounter - Marnie Mesa - 09/12/2022 2:22 PM EST Patient called informing us that she has new insurance - we verified benefits and scanned her paperwork into social media community manager documented in this encounterSMercy Health St. Joseph Warren [id number] Telephone encounter Note* Telephone Encounter - Curtis Montero - 09/15/2022 9:50 AM EST Called patient and LVM to schedule visits. [facility] [id number] Telephone encounter Note* Telephone Encounter - Sharon Mcdonald LPN - 09/12/2022 3:39 PM EST Offsites, can you please try to get her R/S for D/E and BNA? She maybe cancelled d/t insurance change or she does not know the requirements? [facility] HospitalMwpzdc86-04-5394 Telephone encounter Note* Telephone Encounter - Sharon Mcdonald LPN - 09/12/2022 3:31 PM EST Noted. Thank you. I added note to TITUS. Beatriz on file is excluded. [employer] Medicare 3 months D/E. [facility] [id number] Telephone encounter Note* Telephone Encounter - Marnie Mesa - 09/12/2022 2:22 PM EST Patient called informing us that she has new insurance - we verified benefits and scanned her paperwork into social media community manager [facility] [id number] Note* Addendum Note - Nancy Aldridge DO - 08/25/2022 8:41 AM ESTAddended by: NNACY ALDRIDGE on: 08/25/2022 08:41 AM Modules accepted: Orders [place] Phone: [phone]) 454-642602-13-2023 Note* Addendum Note - Nancy Aldridge DO - 08/25/2022 8:41 AM ESTAddended by: NANCY ALDRIDGE on: 08/25/2022 08:41 AM Modules accepted: Orders [place] Phone: [phone] Note* Addendum Note - Nancy Aldridge DO - 08/25/2022 8:41 AM ESTAddended by: NANCY ALDRIDGE on: 08/25/2022 08:41 AM Modules accepted: Orders [place] Phone: [phone]) 412-575502-13-2023 Note* Addendum Note - Nancy Aldridge DO - 08/25/2022 8:41 AM ESTAddended by: NANCY ALDRIDGE on: 08/25/2022 08:41 AM Modules accepted: Orders [facility] [employer] Work Phone: 1(626) 911-167202-13-2023 Miscellaneous Notes* Addendum Note - Nancy Aldridge DO - 08/25/2022 8:41 AM ESTAddended by: NANCY ALDRIDGE on: 08/25/2022 08:41 AM Modules accepted: Orders * Addendum Note - Yanely Peralta - 08/21/2022 3:43 PM ESTAddended by: YANELY PERALTA on: 08/21/2022 03:43 PM Modules accepted: Orders * Telephone Encounter - Yanely Peralta - 08/21/2022 3:42 PM EST ORDERS PENDED * Telephone Encounter - Yanely Peralta - 08/21/2022 3:33 PM EST PLAN Encounter Diagnoses Name Primary? Primary hypertension High cholesterol Gastroesophageal reflux disease without esophagitis Morbid obesity with BMI of 45.0-49.9, adult (CMS/HCC) (HCC) I have recommended proceeding with the evaluation and work-up for the primary procedure as outlinedbelow: PATIENT SUMMARY Caden TAVAREZ 67 y.o. female with Body mass index [...] Adrienne for DVT prophylaxis post-operatively. Pulmonary [x] Others [] []Heme/Onc []Psychiatry []Pain mgmt PSD [x] [...] related to anesthesia, conversion from laparoscopic to andopen procedure, the need for reoperative or endoscopic therapy, the potential for prolonged mechanical ventilation, and . All questions were fully answered to the patient's satisfaction and theywish to proceed with surgical intervention. Sleeve The face to face encounter was spent counseling the patient and discussing the risks,benefits and options of surgery as well as the perioperative care plan. The patient was seen and examined independently and relevant data including a full chart rreview was performed by myself. MICHEL Haynes FACS Director - Minimally Invasive Surgery * Telephone Encounter - Kelsie Cole - 07/29/2022 1:13 PM EST freda Ramsay [facility] surgical patient Navigation & Financial Counseling Discussion Patient Communication: In office SURGEON: [] JMarya [] AD [x] MP [] TB [] LM PROCEDURE: [] LRYGB [x] LSG [] LYLE-S [] LYLE [] UNDECIDED [] REV: SPECIFY: Confirmed pt wants to continue with surgical program/plan [] YES [] NO (complete program withdrawalnote/process) CO-MORBIDS: [] NONE [] DM [x]HTN [x] RUTH []GERD [] OTH: HL PRIVATE PAY: [x] NO []YES DATE OF INITIAL BENEFITS VERIFICATION: TRANSFER FU: [] YES [x] NO PRIMARY INSURANCE: Payor: Do It Original / Plan: Do It Original / Product Type: Commercial / BENEFIT ON PLAN: [x] NO [] YES BENEFIT MAX: [] NO [] YES -- BENEFIT MAX: $ EMPLOYER: DIET AND EXERCISE (DE) REQUIREMENT PRIMARY [] NONE []3M [] 6M []9M [] Medicare 4 Months [] SPR (3M) []OTHER: SECONDARY INSURANCE: YES - [facility] Medicare Advantage BENEFIT ON PLAN: [] [...] 1) Scheduled at new pt surgeon visit: Car Varnisher (RD) for a Nutrition Assessment (BNA) and Pre-operative Diet and Exercise (DE)appointment #1. [x] Patient reminded to arrive 15 [...] before and after surgery. documented in this [facility]02-09-2023 History of Present illness Narrative* Yanely Peralta - 08/21/2022 4:02 PM EST ENDOSCOPY ORDERS To be scheduled with: Dr. Aldridge Patient is: Pre-op/Pre-Bariatric Surgery CPT code: EGD with biopsy- CPT 57995 Diagnosis: GERD- K21.9 If pre-op, Diet & Exercise Requirements are, and started/scheduled on 09/05/22: 3 months Home O2: No Known Difficult Intubation: No * Sharon Espana - 08/21/2022 4:02 PM EST EGD w Bx Scheduled for 09/25/2022 @ 12:00pm @ SEC with Dr. Aldridge. DP * Ladonna Hu LPN - 08/21/2022 4:02 PM EST Printed * Olivia Jo - 08/21/2022 4:02 PM EST Prior auth was denied due to not meeting medical necessity. Peer to peer is required for case # [id number]. Please call [phone]. Thanks documented in this encounterSMercy Health St. Joseph Warren HospitalAepbvf03-37-9003 Note* Addendum Note - Yanely Peralta - 08/21/2022 3:43 PM ESTAddended by: YANELY PERALTA on: 08/21/2022 03:43 PM Modules accepted: Orders [facility] [id number] Note* Addendum Note - Yanely Peralta - 08/21/2022 3:43 PM ESTAddended by: YANELY PERALTA on: 08/21/2022 03:43 PM Modules accepted: Orders [facility] HospitalInifsc62-28-1527 Note* Addendum Note - Yanely Peralta - 08/21/2022 3:43 PM ESTAddended by: YANELY PERALTA on: 08/21/2022 03:43 PM Modules accepted: Orders [facility] HospitalPecsvw46-28-4332 Note* Addendum Note - Yanely Peralta - 08/21/2022 3:43 PM ESTAddended by: YANELY PERALTA on: 08/21/2022 03:43 PM Modules accepted: Orders [facility] HospitalFfvsgz90-91-3776 Note* Addendum Note - Yanely Peralta - 08/21/2022 3:43 PM ESTAddended by: YANELY PERALTA on: 08/21/2022 03:43 PM Modules accepted: Orders [facility] HospitalEblpxv22-46-2226 Miscellaneous Notes* Addendum Note - Yanely Peralta - 08/21/2022 3:43 PM ESTAddended by: YANELY PERALTA on: 08/21/2022 03:43 PM Modules accepted: Orders * Telephone Encounter - Yanely Peralta - 08/21/2022 3:42 PM EST ORDERS PENDED * Telephone Encounter - Yanely Peralta - 08/21/2022 3:33 PM EST PLAN Encounter Diagnoses Name Primary? Primary hypertension High cholesterol Gastroesophageal reflux disease without esophagitis Morbid obesity with BMI of 45.0-49.9, adult (CMS/HCC) (HCC) I have recommended proceeding with the evaluation and work-up for the primary procedure as outlinedbelow: PATIENT SUMMARY Caden TAVAREZ 67 y.o. female with Body mass index [...] Adrienne for DVT prophylaxis post-operatively. Pulmonary [x] Others [] []Heme/Onc []Psychiatry []Pain mgmt PSD [x] [...] related to anesthesia, conversion from laparoscopic to andopen procedure, the need for reoperative or endoscopic therapy, the potential for prolonged mechanical ventilation, and . All questions were fully answered to the patient's satisfaction and theywish to proceed with surgical intervention. Sleeve The face to face encounter was spent counseling the patient and discussing the risks,benefits and options of surgery as well as the perioperative care plan. The patient was seen and examined independently and relevant data including a full chart rreview was performed by myself. MICHEL Haynes FACS Director - Minimally Invasive Surgery * Telephone Encounter - Kelsie Cole - 07/29/2022 1:13 PM EST freda Ramsay [facility] surgical patient Navigation & Financial Counseling Discussion Patient Communication: In office SURGEON: [] LANCE [] AD [x] MP [] TB [] LM PROCEDURE: [] LRYGB [x] LSG [] LYLE-S [] LYLE [] UNDECIDED [] REV: SPECIFY: Confirmed pt wants to continue with surgical program/plan [] YES [] NO (complete program withdrawalnote/process) CO-MORBIDS: [] NONE [] DM [x]HTN [x] RUTH []GERD [] OTH: HL PRIVATE PAY: [x] NO []YES DATE OF INITIAL BENEFITS VERIFICATION: TRANSFER FU: [] YES [x] NO PRIMARY INSURANCE: Payor: Do It Original / Plan: Do It Original / Product Type: Commercial / BENEFIT ON PLAN: [x] NO [] YES BENEFIT MAX: [] NO [] YES -- BENEFIT MAX: $ EMPLOYER: DIET AND EXERCISE (DE) REQUIREMENT PRIMARY [] NONE []3M [] 6M []9M [] Medicare 4 Months [] SPR (3M) []OTHER: SECONDARY INSURANCE: YES - [facility] Medicare Advantage BENEFIT ON PLAN: [] [...] 1) Scheduled at new pt surgeon visit: Car Varnisher (RD) for a Nutrition Assessment (BNA) and Pre-operative Diet and Exercise (DE)appointment #1. [x] Patient reminded to arrive 15 [...] before and after surgery. documented in this [facility]02-09-2023 Telephone encounter Note* Telephone Encounter - Yanely Peralta - 08/21/2022 3:42 PM EST ORDERS PENDED [facility]Kpboec35-23-9687 Telephone encounter Note* Telephone Encounter - Yanely Peralta - 08/21/2022 3:33 PM EST PLAN Encounter Diagnoses Name Primary? Primary hypertension High cholesterol Gastroesophageal reflux disease without esophagitis Morbid obesity with BMI of 45.0-49.9, adult (CMS/HCC) (HCC) I have recommended proceeding with the evaluation and work-up for the primary procedure as outlinedbelow: PATIENT SUMMARY Caden TAVAREZ 67 y.o. female with Body mass index [...] MANAGEMENT Psychology [x] Dietitian [x] Cardiology [x] Dr. Patiño Clearance from Dr. Breaux with [facility] for DVT prophylaxis post-operatively. Pulmonary [x] Others [] []Heme/Onc []Psychiatry []Pain mgmt PSD [x] [...] related to anesthesia, conversion from laparoscopic to andopen procedure, the need for reoperative or endoscopic therapy, the potential for prolonged mechanical ventilation, and . All questions were fully answered to the patient's satisfaction and theywish to proceed with surgical intervention. Sleeve The face to face encounter was spent counseling the patient and discussing the risks,benefits and options of surgery as well as the perioperative care plan. The patient was seen and examined independently and relevant data including a full chart rreview was performed by myself. MICHEL Haynes FACS Director - Minimally Invasive Surgery [facility]02-04-2023 Discharge summary Author Asher Petty [facility] August 16, 2022 2:19am Note Date/Time August 15, 2022 1 0:18pm [facility] Medical Records Department [address] [place] [address] Emergency Department Summary 08/15/22 MR#: [id number] Acct: [id number] Name: CADEN LLAMAS Rep #:[id number] : 1955 67 From: Jaron De PCP: Dr. Ashleigh Garcia MD Status:REG E R Location: ED HPI History of Present Illness Chief Complaint: Chest Pain Informant: patient Onset/Context/Timing Onset: Today Activity at onset: sudden Timing: Continuous Quality: Positive for Sharp Location: Right Chest and - (And right arm) Worsened By: Nothing Relieved By: Nothing Associated Symptoms: Positive for Nausea, Diaphoresis, Lightheadedness and Palpitations; Negative for Vomiting, Dyspnea, Cough, Fever or Acid Reflux Narrative Narrative: Patient presents with right-sided chest pain that began approximately 2 hours prior to arrival. Patient states the pain began suddenly. Patient states pain is sharp. Patient states pain is localized to the right chest and radiates intoher right arm. Patient states nothing makes it better nothing makes it worse. Patient states she does feel clammy and nauseated. Patient also admits to some dizziness with that she describes as a spinning sensation. Patient states she was having some palpitations earlier today. Patient denies any shortness of breath or cough. Patient denies any fevers or chills. CVD Risk Factors: Positive for Hypertension and Family History 1' </=55; Negative for Diabetes, Hypercholesterolemia or Smoking PE Risk Factors: Negative for Recent Travel/Surgery, Recent Immobilization, Prior DVT or PE, Cancer or OCP + Smoking + >/=35 PFSH [facility] Medical History Anxiety and depression Contact with or suspected exposure to other viral communicable disease Contusion of left elbow, initial encounter Encounter for screening for COVID-19 Essential hypertension History of DVT (deep vein thrombosis) History of pulmonary embolism History of stroke Hyperlipidemia RUTH (obstructive sleep apnea) Paroxysmal atrial fibrillation Paroxysmal atrial flutter Type 2 diabetes mellitus Home Medications amlodipine 5 mg tablet 10 mg PO DAILY BLOOD PRESSURE 10/10/15 [History Last Taken 05/28/17] atorvastatin 40 mg tablet 80 mg PO QHS CHOLESTEROL 05/20/16 [History Last Taken 05/28/17] aspirin 81 mg chewable tablet 81 mg PO DAILY 10/09/18 [History Last Taken Unknown] cyclobenzaprine 10 mg tablet 10 mg PO TID PRN Muscle Spasm #20 TABLETS 04/28/22 [Rx Last Taken Unknown] carvedilol 12.5 mg tablet 12.5 mg PO BID #180 tabs 08/06/22 [Rx Last Taken Unknown] citalopram 10 mg tablet 10 mg PO DAILY 08/06/22 [History Last Taken Unknown] gabapentin 800 mg tablet 800 mg PO TID 08/06/22 [History Last Taken Unknown] Allergy/AdvReac Type Severity Reaction Status Date / Time lisinopril Allergy Unknown Unknown Verified 08/15/22 21:09 latex Allergy Rash Verified 08/15/22 21:09 oxycodone [Oxycodone] AdvReac Itching Verified 08/15/22 21:09 Family History Mother Diabetes Cancer Myocardial infarction Hypertension Father Myocardial infarction Heart disease Hypertension Brother Cancer Hypertension Sister Bipolar disorder Schizophrenia Hypertension Surgical History History of appendectomy History of carpal tunnel release History of cerebral aneurysm repair (~2012) History of cholecystectomy History of hysterectomy History of shoulder surgery History of total knee replacement Social History Smoking Status: Never smoker alcohol intake: never substance use type: does not use caffeine: Yes Type: carbonated beverages Number of servings: 1 ROS ROS ED Constitutional Constitutional ED: Denies chills or fever(s) Eyes Eyes: Denies blurry vision or change in vision ENT ENT ED: Denies rhinorrhea or sore throat Cardiovascular Cardiovascular: Reports chest pain and palpitations Respiratory/Chest Respiratory/Chest: Denies cough or dyspnea Gastrointestinal Gastrointestinal: Reports nausea; Denies abdominal pain or vomiting Genitourinary Genitourinary ED: Denies dysuria or hematuria Musculoskeletal Musculoskeletal: Denies back pain or neck pain Integumentary Denies abscess or rash Neurologic Neurologic: Denies headache(s) or weakness Allergic/Immunologic Allergic/Immunologic ED: Denies mouth swelling or urticaria EXAM Physical Exam Const Vital Signs: 08/15/22 21:07 08/15/22 23:00 08/15/22 23:48 Temperature 97.8 F Temperature Source Temporal Pulse Rate 81 77 Respiratory Rate 20 H 16 Blood Pressure 143/125 H 108/64 Blood Pressure Mean 131 78 Pulse Ox 100 99 Oxygen Delivery Method Room Air Room Air Room Air Positive well nourished, well developed and obese General Appearance ED: well developed and NAD Nutritional Appearance: obese HEENT normocephalic and atraumatic Eyes PERRL and EOMs intact bilaterally Neck supple and no JVD Chest Wall Chest Narrative: There is reproducible tenderness over the right anterior chest wall. There is no bony crepitance or step-off. Chest: tenderness rib and pectoral muscle Resp normal respiratory effort and clear to auscultation bilaterally Effort and Inspection: Negative for respiratory distress Cardio Rate: tachycardic Rhythm: abnormal rhythm irregularly irregular GI normal to inspection, nondistended, normoactive bowel sounds, soft to palpation, non-tender and non-distended Extremity normal to inspection General Extremety ED: Negative for edema or tenderness General Extremity: Negative for edema Neuro oriented x3, CN's II-XII intact bilaterally and no sensory deficits noted Sensorium / Orientation: awake and alert Motor Exam: strength 5/5 throughout Psych mental status grossly normal Heart Score History: Slightly/Non-Suspicious ECG: Normal Age: >/= 65 years Risk Factors: 1 or 2 Risk Factors Score: 3 MDM MDM MDM Narrative Medical decision making narrative: Differential diagnosis includes cardiac ischemia, pulmonary embolism, pneumonia, pneumothorax, and musculoskeletal etiology. CBC will be obtained to assess for leukocytosis and anemia. Basic metabolic profile will be obtained to assess for electrolyte abnormality and renal function. Chest x-ray will be obtained to assess for pneumonia, pneumothorax, and rib fracture. High-sensitivity troponin will be obtained to assess for cardiac ischemia. EKG will be obtained to assess for cardiac ischemia and dysrhythmia. Lab Data Lab results narrative: CBC was reviewed and showed a mild anemia with a hemoglobin of 11.8. Basic metabolic profile was reviewed and showed a BUN of 27 and creatinine 1.5. D-dimer was reviewed and was slightly elevated at 0.95. Labs: Laboratory Results - last 24 hr 08/15/22 08/15/22 08/15/22 21:50 21:50 21:50 WBC 8.0 RBC 4.33 Hgb 11.8 L Hct 38.1 MCV 88.0 MCH 27.3 MCHC 31.0 L RDW Std Deviation 46.1 H RDW Coeff of Amandeep 14.4 Plt Count 329 MPV 10.5 Immature Gran % (Auto) 0.300 Neut % (Auto) 58.3 Lymph % (Auto) 31.5 Coffey % (Auto) 7.4 Eos % (Auto) 2.0 Baso % (Auto) 0.5 Absolute Neuts (auto) 4.7 Absolute Lymphs (auto) 2.51 Nucleated RBC % 0 D-Dimer Quant (PE/DVT) 0.95 H* Sodium 142 Potassium 4.1 Chloride 107 Carbon Dioxide 25.0 Anion Gap 10 BUN 27 H Creatinine 1.50 H Estim Creat Clear Calc 28.39 Est GFR (MDRD) Af Amer 44 L Est GFR (MDRD) Non-Af 37 L BUN/Creatinine Ratio 18.0 Glucose 192 H Calcium 8.9 Troponin I High Sens 16 Radiography Chest X-Ray - ED: 1 View, Read by ED Physician, Read by Radiologist and No Acute Disease Diagnostic Testing: Clinical Impression(s) from Imaging Studies Chest X-Ray 08/15/22 21:20 IMPRESSION: No radiographic evidence of acute cardiopulmonary disease. Electronically Signed: Dmitriy Rubio MD at 21:31 EST , Portable 1 view chest x-ray was obtained. On my independent interpretation, lung cohen are clear. There is normal cardiac silhouette. Bony thorax is normal. There is no acute process noted. Radiologist also interpreted the x-ray and agrees. CTA of the chest was obtained. On my independent interpretation, there is no evidence of aortic dissection or pulmonary embolus. There is no evidence of pneumothorax or pneumonia. Radiologist also interpreted the CT scan. EKG Initial EKG: Attestation: I personally reviewed and interpreted this EKG as follows: Interpretation: No Acute Injury Pattern and Atrial Fibrillation (140) Comments: EKG was obtained. On my interpretation, it shows atrial fibrillation with a rate of 140. There are no acute ST or T wave changes. QRS interval is borderline at 120 ms. QTc interval was borderline at 494 ms. [place] was normal. Prior EKG tracings: available for review Prior: Unchanged (06/28/2022) Treatment and Re-Evaluation Narrative: Patient was given IV fluids. Patient was given a dose of Valium. Because of the elevated D-dimer, CTA of the chest was obtained. Patient is feeling somewhat better on reevaluation. Patient states her dizziness is approximately 50% better. Patient is still complaining of a headache. Patient was given a dose of [place]. Patient's heart rate has improved. Patient was advised of her findings. Care of the patient was turned over to the overnight physician pending CTA report. Discharge Plan Triage Chief Complaint: Chest Pain ED Provider: Jaron Worrell Dx/Rx/DC Orders Clinical Impression: Chest pain, Paroxysmal atrial fibrillation, Dizziness Prescriptions: No Action gabapentin 800 mg tablet 800 mg PO TID citalopram 10 mg tablet 10 mg PO DAILY amlodipine 5 MG tablet 10 mg PO DAILY atorvastatin 40 MG tablet 80 mg PO QHS aspirin 81 MG tablet,chewable 81 mg PO DAILY Label Comments: TAKE 1 TABLET BY MOUTH EVERY DAY cyclobenzaprine 10 mg tablet 10 mg PO TID PRN (Reason: Muscle Spasm) Qty: 20 0RF carvedilol 12.5 mg tablet 12.5 mg PO BID Qty: 180 3RF Rx Instructions: must administer with a meal/food Primary Care Provider: Ashleigh Garcia Chi Referrals: Ashleigh Garcia Chi, MD [Primary Care Provider] - 3-5 Days What to do if you have Problems For any increased pain, shortness of breath, bleeding, nausea or vomiting, chestpain, or any unexpected problems, contact your Primary Care Provider. Call [facility] ([phone]) or report to the closest Emergency Room. Call 911 if necessary. 08/16/22 0055 <Electronically signed by Jaron Worrell DO> Cosigner Signature (if applicable): CC: Dr. Ashleigh Garcia MD ~ Signed ADDENDUM by Asher Petty DO on 08/16/22 at 0218 Patient was signed out to me while pending her CTA. Her CTA revealed no pulmonary embolus or dissection. On reevaluation she is reporting feeling better and vitals are stable. Therefore at this time as symptoms have improved and work-up is negative I do not feel there is need for admission to the hospital orfurther testing in the ER and patient is otherwise safe for discharge 08/16/22 0219<Electronically signed by Asher Petty DO> Cosigner Signature (if applicable): cc: Dr. Ashleigh Garcia MD ~* Signed [facility] Work Phone: [phone] Telephone encounter Note* Telephone Encounter - Kelsie Camposlroy - 07/29/2022 1:13 PM EST [facility] surgical patient Navigation & Financial Counseling Discussion Patient Communication: In office SURGEON: [] JZ [] AD [x] MP [] TB [] LM PROCEDURE: [] LRYGB [x] LSG [] LYLE-S [] LYLE [] UNDECIDED [] REV: SPECIFY: Confirmed pt wants to continue with surgical program/plan [] YES [] NO (complete program withdrawalnote/process) CO-MORBIDS: [] NONE [] DM [x]HTN [x] RUTH []GERD [] OTH: HL PRIVATE PAY: [x] NO []YES DATE OF INITIAL BENEFITS VERIFICATION: TRANSFER FU: [] YES [x] NO PRIMARY INSURANCE: Payor: Do It Original / Plan: Do It Original / Product Type: Commercial / BENEFIT ON PLAN: [x] NO [] YES BENEFIT MAX: [] NO [] YES -- BENEFIT MAX: $ EMPLOYER: DIET AND EXERCISE (DE) REQUIREMENT PRIMARY [] NONE []3M [] 6M []9M [] Medicare 4 Months [] SPR (3M) []OTHER: SECONDARY INSURANCE: YES - [facility] Medicare Advantage BENEFIT ON PLAN: [] [...] 1) Scheduled at new pt surgeon visit: Car Varnisher (RD) for a Nutrition Assessment (BNA) and Pre-operative Diet and Exercise (DE)appointment #1. [x] Patient reminded to arrive 15 [...] and lab/testing results before and after surgery. [id number] Miscellaneous Notes* Telephone Encounter - Klesie Cole - 07/29/2022 1:13 PM EST [facility] surgical patient Navigation & Financial Counseling Discussion Patient Communication: In office SURGEON: [] JMarya [] AD [x] MP [] TB [] LM PROCEDURE: [] LRYGB [x] LSG [] LYLE-S [] LYLE [] UNDECIDED [] REV: SPECIFY: Confirmed pt wants to continue with surgical program/plan [] YES [] NO (complete program withdrawalnote/process) CO-MORBIDS: [] NONE [] DM [x]HTN [x] RUTH []GERD [] OTH: HL PRIVATE PAY: [x] NO []YES DATE OF INITIAL BENEFITS VERIFICATION: TRANSFER FU: [] YES [x] NO PRIMARY INSURANCE: Payor: [employer] / Plan: Do It Original / Product Type: Commercial / BENEFIT ON PLAN: [x] NO [] YES BENEFIT MAX: [] NO [] YES -- BENEFIT MAX: $ EMPLOYER: DIET AND EXERCISE (DE) REQUIREMENT PRIMARY [] NONE []3M [] 6M []9M [] Medicare 4 Months [] SPR (3M) []OTHER: SECONDARY INSURANCE: YES - [facility] Medicare Advantage BENEFIT ON PLAN: [] [...] 1) Scheduled at new pt surgeon visit: Car Varnisher (RD) for a Nutrition Assessment (BNA) and Pre-operative Diet and Exercise (DE)appointment #1. [x] Patient reminded to arrive 15 [...] before and after surgery. documented in this [facility]01-16-2023 History of Present illness Narrative* Ladonna Hu LPN - 07/28/2022 9:20 AM EST [facility] SURGICAL WEIGHT LOSS MANAGEMENT PROGRAM Rooming Note - INITIAL CONSULTATION Patient: Caden Llamas Date of : 1955 Service Date: 07/28/2022 Patient is here today to discuss the possibility of weight loss surgery. This patient is alone for the evaluation today she is interested in discussing weight loss surgery. Physician Supervised D/E: 3 Weight Metrics: Vitals BP: (!) 147/84 Heart Rate: 79 Resp: 18 Temp: 36.2 C (97.1 F) Baseline Measures Initial Height: 5' 2.25 (158.1 cm) Initial Weight: 249 lb 9.6 oz (113 kg) Initial BMI: 45.4 Initial EBW: 138 lb 5.6 oz (62.8 kg) Initial Waist Cricumference: 56.5 Initial Neck Circumference: 16.5 Falls Risk Assessment Patient doestake medications which affect BP or mental status Patient does not have newly prescribed or changed dosage of medications within past 30 days which affect BP or mental status Patient has not fallen in the past 2 months Patient does not demonstrate unsteady gait Patient uses the following ambulatory assistive devices: none Patient is low risk for falls. If high or moderate risk, patient instructed not to ambulate independently in the Center, and cord for call light placed within reach of patient. History of Difficult Intubation: No Patient is not on home O2 Completed by: Ladonna Hu LPN * Nancy Aldridge, DO - 07/28/2022 9:20 AM EST Images from the original note were not included. BARIATRIC AND METABOLIC SURGERY [facility] INITIAL EVALUATION - HISTORY AND PHYSICAL 07/28/2022 PATIENT: Caden Llamas DATE OF : 1955 HISTORY OF PRESENT ILLNESS Chief Complaint: Morbid Obesity and associated comorbid conditions. Caden Llamas is a 67 y.o. female with morbid obesity and associated comorbid conditions who [facility] for evaluation for bariatric surgery. The patient stands Height: 5' 2.25 (158.1 cm) ([facility]) tall with a weight of Weight: 249 lb 9.6 oz (113 kg) , and has a BMI of Body mass index is 45.29 kg/m .. The patient has failed multiple attempts at [...] Hx of brain aneurysm. Repaired with clasp (2015). Pt was told to avoid blood thinners. Will check with Dr. Aldridge. She does not smoke, and does not [...] Surgical History: Procedure Laterality Date APPENDECTOMY 1977 [facility] CHOLECYSTECTOMY 1977 [facility] INTRACRANIAL ANEURYSM REPAIR 2016 [facility] - Dr Vallecillo KNEE SURGERY 2019 [facility] SHOULDER SURGERY 2014 [facility] Dr Reyes Family History Problem Relation Name Age [...] BP (!) 147/84 Pulse 79 Temp 36.2 C (97.1 F) Resp 18 Ht 5' 2.25 (1.581 m) Comment: [facility] HGT CHK Wt 249 lb 9.6 oz (113 kg) BMI 45.29 kg/m General: This patient is awake, alert, and [...] is a candidate for Laparoscopic Sleeve Gastrectomy and Laparoscopic Liver Biopsy. She chose Laparoscopic Sleeve Gastrectomy and Laparoscopic Liver Biopsy. In anticipation of weight reductive surgery now or in the future, we spent a great deal of time discussing the risks and benefits of , including but not limited to injury to intra-abdominal organs, breakdown of the gastric staple line, the need for re-operative therapy, prolonged hospitalization, mechanical ventilation, and . We discussed the possibility of bleeding, the need for blood transfusions, blood clots, hospital-acquired and intra-abdominal infection, anastomotic stricture, and worsening GERD. And we discussed the need for post-operative visit compliance, behavior modifications and diet changes, protein and vitamin supplementation, as well as routine scheduled and dedicated exercise. We discussed the potential weight loss benefit of approximately 60-70% of her excess body weight at 12-18 months post-op, as well as the possibility of insufficient weight loss or weight gain after 2 years post-operative time. Upon completion of all required pre-operative testing we will submit for insurance pre-authorization. PLAN Encounter Diagnoses Name Primary? Primary hypertension High cholesterol Gastroesophageal reflux disease without esophagitis Morbid obesity with BMI of 45.0-49.9, adult ([facility]) (HCC) I have recommended proceeding with the evaluation and work-up for the primary procedure as outlinedbelow: PATIENT SUMMARY Caden TAVAREZ 67 y.o. female with Body mass index [...] US Abdomen [] [x] not ordered S/p jauna RUTH eval [x] [x] On CPAP / Obtain settings Hematology [] [] Hypercoagulation panel Toxicology [] [] Urine drug screen [] EtOH screen Addtional [x] [x] Hgb A1c INITIAL CONSULTATIONS CLEARANCE / MANAGEMENT Psychology [x] Dietitian [x] Cardiology [x] Need Clearance from Dr. Breaux with [facility] for DVT prophylaxis post-operatively. Pulmonary [x] Others [] []Heme/Onc []Psychiatry []Pain mgmt PSD [x] [...] related to anesthesia, conversion from laparoscopic to andopen procedure, the need for reoperative or endoscopic therapy, the potential for prolonged mechanical ventilation, and . All questions were fully answered to the patient's satisfaction and theywish to proceed with surgical intervention. Sleeve The face to face encounter was spent counseling the patient and discussing the risks,benefits and options of surgery as well as the perioperative care plan. The patient was seen and examined independently and relevant data including a full chart rreview was performed by myself. SHAMEKA Haynes FACSYolanda Director - Minimally Invasive Surgery ---[facility]--- Patient Care Team: Agusto Elliott DO as PCP - General documented in this [facility]01-16-2023 History of Present illness Narrative* Ladonna Hu LPN - 07/28/2022 9:20 AM EST [facility] SURGICAL WEIGHT LOSS MANAGEMENT PROGRAM Rooming Note - INITIAL CONSULTATION Patient: Caden Llamas Date of : 1955 Service Date: 07/28/2022 Patient is here today to discuss the possibility of weight loss surgery. This patient is alone for the evaluation today she is interested in discussing weight loss surgery. Physician Supervised D/E: 3 Weight Metrics: Vitals BP: (!) 147/84 Heart Rate: 79 Resp: 18 Temp: 36.2 C (97.1 F) Baseline Measures Initial Height: 5' 2.25 (158.1 cm) Initial Weight: 249 lb 9.6 oz (113 kg) Initial BMI: 45.4 Initial EBW: 138 lb 5.6 oz (62.8 kg) Initial Waist Cricumference: 56.5 Initial Neck Circumference: 16.5 Falls Risk Assessment Patient doestake medications which affect BP or mental status Patient does not have newly prescribed or changed dosage of medications within past 30 days which affect BP or mental status Patient has not fallen in the past 2 months Patient does not demonstrate unsteady gait Patient uses the following ambulatory assistive devices: none Patient is low risk for falls. If high or moderate risk, patient instructed not to ambulate independently in the Center, and cord for call light placed within reach of patient. History of Difficult Intubation: No Patient is not on home O2 Completed by: Ladonna Hu LPN * Nancy Aldridge, DO - 07/28/2022 9:20 AM EST Images from the original note were not included. BARIATRIC AND METABOLIC SURGERY [facility] INITIAL EVALUATION - HISTORY AND PHYSICAL 07/28/2022 PATIENT: Caden Llamas DATE OF : 1955 HISTORY OF PRESENT ILLNESS Chief Complaint: Morbid Obesity and associated comorbid conditions. Caden Llamas is a 67 y.o. female with morbid obesity and associated comorbid conditions who presents [facility] for evaluation for bariatric surgery. The patient stands Height: 5' 2.25 (158.1 cm) [facility] with a weight of Weight: 249 lb 9.6 oz (113 kg) , and has a BMI of Body mass index is 45.29 kg/m .. The patient has failed multiple attempts at [...] Hx of brain aneurysm. Repaired with clasp (2015). Pt was told to avoid blood thinners. Will check with Dr. Aldridge. She does not smoke, and does not [...] Surgical History: Procedure Laterality Date APPENDECTOMY 1977 [facility] CHOLECYSTECTOMY 1977 [facility] INTRACRANIAL ANEURYSM REPAIR 2016 [facility] - Dr Vallecillo KNEE SURGERY 2019 [facility] SHOULDER SURGERY 2014 Babatunde Reyes Family History [...] BP (!) 147/84 Pulse 79 Temp 36.2 C (97.1 F) Resp 18 Ht 5' 2.25 (1.581 m) Comment: BCC HGT CHK Wt 249 lb 9.6 oz (113 kg) BMI 45.29 kg/m General: This patient is awake, alert, and [...] is a candidate for Laparoscopic Sleeve Gastrectomy and Laparoscopic Liver Biopsy. She chose Laparoscopic Sleeve Gastrectomy and Laparoscopic Liver Biopsy. In anticipation of weight reductive surgery now or in the future, we spent a great deal of time discussing the risks and benefits of , including but not limited to injury to intra-abdominal organs, breakdown of the gastric staple line, the need for re-operative therapy, prolonged hospitalization, mechanical ventilation, and . We discussed the possibility of bleeding, the need for blood transfusions, blood clots, hospital-acquired and intra-abdominal infection, anastomotic stricture, and worsening GERD. And we discussed the need for post-operative visit compliance, behavior modifications and diet changes, protein and vitamin supplementation, as well as routine scheduled and dedicated exercise. We discussed the potential weight loss benefit of approximately 60-70% of her excess body weight at 12-18 months post-op, as well as the possibility of insufficient weight loss or weight gain after 2 years post-operative time. Upon completion of all required pre-operative testing we will submit for insurance pre-authorization. PLAN Encounter Diagnoses Name Primary? Primary hypertension High cholesterol Gastroesophageal reflux disease without esophagitis Morbid obesity with BMI of 45.0-49.9, adult (CMS/HCC) (HCC) I have recommended proceeding with the evaluation and work-up for the primary procedure as outlinedbelow: PATIENT SUMMARY Caden TAVAREZ 67 y.o. female with Body mass index [...] related to anesthesia, conversion from laparoscopic to andopen procedure, the need for reoperative or endoscopic therapy, the potential for prolonged mechanical ventilation, and . All questions were fully answered to the patient's satisfaction and theywish to proceed with surgical intervention. Sleeve The face to face encounter was spent counseling the patient and discussing the risks,benefits and options of surgery as well as the perioperative care plan. The patient was seen and examined independently and relevant data including a full chart rreview was performed by myself. MICHEL Haynes FACS Director - Minimally Invasive Surgery ---[facility]--- Patient Care Team: Agusto Elliott DO as PCP - General documented in this [facility]08-11-2022 Hospital Discharge instructions Patient Education 02/20/2022 11:43:01 [...] that staying hydrated, taking certain vitamins or minerals,or stretching works to prevent cramps, these measures [...] Pain that wakes you up at night [id number] [employer] [place] [address]. All rights reserved. This information is not intended as a substitute for professional medical care. Always follow yourhealthcare professional's instructions. Follow Up Care 02/20/2022 10:04:21 With:ÁNGEL GARCIA MD Address: ADULT GERIATRICS/[facility] [address] [place], [place] [id number]- When:2-4 days [facility] 08-11-2022 Note Discharge Instructions Thank you for allowing [facility] to assist you with your healthcare needs. The following is importantdischarge information regarding your hospital visit. Diagnosis from Today's Visit Cramp of muscle of both lower limbs Leg pain-swelling What to Do Next Instructions from Your Care Team No qualifying data available. Post Acute Orders No qualifying data available. You Need to Schedule the Following Appointments Follow Up with ÁNGEL GARCIA MD When Within 2-4 days Where: [facility] [address] [place] [id number]- Allergies lisinopril Percocet 7.5/325 Latex (Hives) Percocet 5/325 (Unknown) Medications Please ask your primary doctor or pharmacist before taking any other medication not listed, including over the counter drugs, herbal medications, vitamins and or supplements as they may interact withyour home medications. What How Much When Instructions [...] that staying hydrated, taking certain vitamins or minerals,or stretching works to prevent cramps, these measures [...] Pain that wakes you up at night [id number] [employer]. [address] [place] [address]. All rights reserved. This information is not intended as a substitute for professional medical care. Always follow yourhealthcare professional's instructions. Additional Information VACCINATE! IT SAVES LIVES! Members of the community who have not yet received the COVID-19 vaccine and would like to receive it can visit one of [facility] vaccine clinics. There are many vaccine clinic locations within the [facility]. For locations and available times, please visit [email or web address]. It is important to note that some COVID mobile vaccine clinics are held outdoors and may be canceled in rainy orstormy conditions. To learn more about pediatric vaccinations (ages 5-11), we invite you to visit the [facility] webpage. [email or web address]/[email or web address]-[email or web address]-Rvwwjxygqj-[email or web address]-Fst stions.htmlTo learn more about the COVID-19 vaccine, we invite you to visit the [facility] website for a list of frequently asked questions. [email or web address] _Asked-Questions.pdf [facility] G[facility] Patient Portal Access Instructions: Stay connected with your healthcare team and access your personal medical information anytime with the [facility] t3n [employer] Patient Portal. If you would like a full copy of your medical records please contact the [facility] Medical Records Department Thursday through Thursday between 8a.m. and 4:30p.m. Please follow the directions below to access the portal: 1.Access the email account you provided upon registration to the [facility].2.Look for an invitation email from [facility].3.Open the email and access the invitation link: [facility] to [facility].Fill in the required cohen to create your account. Sign into [email or web address] with your username and password that you [...] you will allow to register on the [facility] Patient Portal for access to your information. You can also access the [facility] t[employer]n [employer] Patient Portal on the [facility]. Simply click on Health Records under [place] and then click on the [facility] logo. HOW TO SAFELY DISPOSE OF PRESCRIPTION MEDICATIONS Please use one of the following methods to safely dispose of your unused medications. 1.Use a drug disposal kit: the drug disposal pouch allows you to safely discard your old and unuseddrugs. Ask your nurse to give you one when you are discharged.2.Visit a local take-back location: Many local pharmacies and police departments have programs that collect old and unwanted prescriptiondrugs. Call your local pharmacy or go to http://[employer].Briteseed/9L7Mm3a to find one close to you.3.Make use of household items: Use cat litter or old coffee grounds to dispose medications if other options arenot available. Mix your drugs with these household products, seal them in an airtight container andthrow it into the garbage. [facility]: [phone] to be sure your drugs can be [...] drowsiness, such as benzodiazepines, also known as benzos,including diazepam and alprazolam, muscle relaxants or sleep aids. Never sell or share prescriptionopioids. This is illegal. Store opioids in a secure place and out of reach of others (including children, family, friends and visitors). The last page(s) of this document has been signed and retained as a CHART COPY Signatures Patient Education Materials Muscle Spasm Medication Leaflets My discharge plan and instructions have been reviewed and explained to me and I,CADEN LLAMAS understand my current condition and have read and understand these discharge instructions. I have received a written copy of the plan/instructions. If I have questions, I am aware that I should contactmy doctor. Patient/Senior Inspector Signature: Date/Time: Relationship to Patient: Witness Name/Signature: Date/Time: [facility]22 Hospital Discharge instructions Patient Education 02/13/2022 10:57:24 [...] hours, but do not soak the area inwater (no swimming) until the stitches or nikolai [...] nikolai have been removed. Talk with your doctorbefore applying any antibiotic ointment to the wound. Mouth wounds Eat soft foods to reduce pain. If the cut is inside of your mouth, clean by rinsing after each mealand at bedtime with a mixture of equal parts water and hydrogen peroxide (do not swallow!). Or, youcan use a cotton swab to directly apply hydrogen peroxide onto the cut. Mouth wounds can be painfulwhen eating. You may use an qplx-obf-pxjkkac local numbing solution for pain relief. If this is notavailable, you may use any numbing solution for teething babies. You may apply this directly to thesores with a cotton-tip swab or with your [...] off before 7 days Wound edges re-open [phone] [employer]. [address] [place] [address]. All rights reserved. This information is not intended as a substitute for professional medical care. Always follow yourhealthcare professional's instructions. Follow Up Care 02/13/2022 10:07:40 With:ÁNGEL GARCIA MD Address: ADULT GERIATRICS/[facility] [address] [place] [address]- When:5 to 7 days [facility] 08-04-2022 Emergency department Discharge summary Discharge Instructions Thank you for allowing [facility] to assist you with your healthcare needs. The following is importantdischarge information regarding your hospital visit. Diagnosis from Today's Visit Laceration of finger Laceration of finger What to Do Next Instructions from Your Care Team No qualifying data available. Post Acute Orders No qualifying data available. You Need to Schedule the Following Appointments Follow Up with ÁNGEL GARCIA MD When Within 5 to 7 days Where: ADULT GERIATRICS/[facility] [address] [place] [address]- Allergies lisinopril Percocet 7.5/325 Latex (Hives) Percocet 5/325 (Unknown) Medications Please ask your primary doctor or pharmacist before taking any other medication not listed, including over the counter drugs, herbal medications, vitamins and or supplements as they may interact withyour home medications. What How Much When Instructions [...] hours, but do not soak the area inwater (no swimming) until the stitches or nikolai [...] nikolai have been removed. Talk with your doctorbefore applying any antibiotic ointment to the wound. Mouth wounds Eat soft foods to reduce pain. If the cut is inside of your mouth, clean by rinsing after each mealand at bedtime with a mixture of equal parts water and hydrogen peroxide (do not swallow!). Or, youcan use a cotton swab to directly apply hydrogen peroxide onto the cut. Mouth wounds can be painfulwhen eating. You may use an fgeu-cqk-dedmpec local numbing solution for pain relief. If this is notavailable, you may use any numbing solution for teething babies. You may apply this directly to thesores with a cotton-tip swab or with your [...] off before 7 days Wound edges re-open [id number] [employer]. [address] [place] [address]. All rights reserved. This information is not intended as a substitute for professional medical care. Always follow yourhealthcare professional's instructions. Additional Information VACCINATE! IT SAVES LIVES! Members of the community who have not yet received the COVID-19 vaccine and would like to receive it can visit one of [facility] vaccine clinics. There are many vaccine clinic locations within the [facility]. For locations and available times, please visit [email or web address]. It is important to note that some COVID mobile vaccine clinics are held outdoors and may be canceled in rainy orstormy conditions. To learn more about pediatric vaccinations (ages 5-11), we invite you to visit the [facility] webpage. https://[email or web address]/pages/[email or web address]-Ydviy-Bpgbxrjbjvq-Gwprtutvie-Svnxn-Aeu stions.htmlTo learn more about the COVID-19 vaccine, we invite you to visit the [facility] website for a list of frequently asked questions. [email or web address] [email or web address] Media/assets/Ryhhlezf-[email or web address]-Vrooqxba/dftmq-Drkiagh-Leorsrrnxk _Asked-Questions.pdf [facility] Patient Portal Access Instructions: Stay connected with your healthcare team and access your personal medical information anytime with the [facility] Patient Portal. If you would like a full copy of your medical records please contact the [facility] Medical Records Department Thursday through Thursday between 8a.m. and 4:30p.m. Please follow the directions below to access the portal: 1.Access the email account you provided upon registration to the [facility].2.Look for an invitation email from [facility].3.Open the email and access the invitation link: Accept Invitation to [facility]4.Fill in the required cohen to create your account. Sign into [email or web address] with your username and password that you [...] you will allow to register on the [facility] Patient Portal for access to your information. You can also access the [facility] Patient Portal on the [employer] keyon. Simply click on Health Records under AppticlesData and then click on the Jw logo. HOW TO SAFELY DISPOSE OF PRESCRIPTION MEDICATIONS Please use one of the following methods to safely dispose of your unused medications. 1.Use a drug disposal kit: the drug disposal pouch allows you to safely discard your old and unuseddrugs. Ask your nurse to give you one when you are discharged.2.Visit a local take-back location: Many local pharmacies and police departments have programs that collect old and unwanted prescriptiondrugs. Call your local pharmacy or go to http://bit.ly/7N0Vf9m to find one close to you.3.Make use of household items: Use cat litter or old coffee grounds to dispose medications if other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 Essential hypertension, benign Hyperlipidemia with target low density lipoprotein (LDL) cholesterol less than 100 mg/dL Asthma, unspecified asthma severity, unspecified whether complicated, unspecified whether persistent Type 2 diabetes mellitus without complication, without long-term current use of insulin (HCC) Chest pain of uncertain etiology Anemia, unspecified type Morbidly obese (HCC) Morbid obesity Rotator cuff syndrome of left shoulder- Primary Disorders of bursae and tendons in shoulder region, unspecified Rotator cuff syndrome of right shoulder- Primary Disorders of bursae and tendons in shoulder region, unspecified Post-traumatic osteoarthritis of right shoulder Secondary localized osteoarthrosis, shoulder region Pre-operative examination- Primary Preoperative examination, unspecified Anemia, unspecified type Cerebrovascular accident (CVA), unspecified mechanism (HCC) H/O Brain Aneurysm Cerebral aneurysm, nonruptured Other polyneuropathy Atrial fibrillation, unspecified type (HCC) Hyperlipidemia with target low density lipoprotein (LDL) cholesterol less than 100 mg/dL Hypertension, unspecified type Chest pain of uncertain etiology Asthma, unspecified asthma severity, unspecified whether complicated, unspecified whether persistent WEISS (dyspnea on exertion) Other dyspnea and respiratory abnormality RUTH (obstructive sleep apnea) Obstructive sleep apnea (adult) (pediatric) Stage 2 chronic kidney disease Urinary incontinence, unspecified type Type 2 diabetes mellitus without complication, without long-term current use of insulin (HCC) Status post total right knee replacement Anxiety Anxiety state, unspecified Morbidly obese (HCC) Morbid obesity S/P total knee arthroplasty, left [facility] Diagnosis Preoperative examination- Primary Preoperative examination, unspecified Arthritis of right knee Unspecified arthropathy, lower leg H/O Brain Aneurysm Cerebral aneurysm, nonruptured Cerebrovascular accident (CVA), unspecified mechanism (HCC) Essential hypertension, benign Hyperlipidemia with target low density lipoprotein (LDL) cholesterol less than 100 mg/dL Asthma, unspecified asthma severity, unspecified whether complicated, unspecified whether persistent Type 2 diabetes mellitus without complication, without long-term current use of insulin (HCC) Chest pain of uncertain etiology Anemia, unspecified type Morbidly obese (HCC) Morbid obesity Rotator cuff syndrome of left shoulder- Primary Disorders of bursae and tendons in shoulder region, unspecified Rotator cuff syndrome of right shoulder- Primary Disorders of bursae and tendons in shoulder region, unspecified Post-traumatic osteoarthritis of right shoulder Secondary localized osteoarthrosis, shoulder region Pre-operative examination- Primary Preoperative examination, unspecified Anemia, unspecified type Cerebrovascular accident (CVA), unspecified mechanism (HCC) H/O Brain Aneurysm Cerebral aneurysm, nonruptured Other polyneuropathy Atrial fibrillation, unspecified type (HCC) Hyperlipidemia with target low density lipoprotein (LDL) cholesterol less than 100 mg/dL Hypertension, unspecified type Chest pain of uncertain etiology Asthma, unspecified asthma severity, unspecified whether complicated, unspecified whether persistent WEISS (dyspnea on exertion) Other dyspnea and respiratory abnormality RUTH (obstructive sleep apnea) Obstructive sleep apnea (adult) (pediatric) Stage 2 chronic kidney disease Urinary incontinence, unspecified type Type 2 diabetes mellitus without complication, without long-term current use of insulin (HCC) Status post total right knee replacement Anxiety Anxiety state, unspecified Morbidly obese (HCC) Morbid obesity S/P total knee arthroplasty, left- Primary Aftercare following left knee joint replacement surgery [facility] Diagnosis Preoperative examination- Primary Preoperative examination, unspecified Arthritis of right knee Unspecified arthropathy, lower leg H/O Brain Aneurysm Cerebral aneurysm, nonruptured Cerebrovascular accident (CVA), unspecified mechanism (HCC) Essential hypertension, benign Hyperlipidemia with target low density lipoprotein (LDL) cholesterol less than 100 mg/dL Asthma, unspecified asthma severity, unspecified whether complicated, unspecified whether persistent Type 2 diabetes mellitus without complication, without long-term current use of insulin (HCC) Chest pain of uncertain etiology Anemia, unspecified type Morbidly obese (HCC) Morbid obesity Rotator cuff syndrome of left shoulder- Primary Disorders of bursae and tendons in shoulder region, unspecified Rotator cuff syndrome of right shoulder- Primary Disorders of bursae and tendons in shoulder region, unspecified Post-traumatic osteoarthritis of right shoulder Secondary localized osteoarthrosis, shoulder region Pre-operative examination- Primary Preoperative examination, unspecified Anemia, unspecified type Cerebrovascular accident (CVA), unspecified mechanism (HCC) H/O Brain Aneurysm Cerebral aneurysm, nonruptured Other polyneuropathy Atrial fibrillation, unspecified type (HCC) Hyperlipidemia with target low density lipoprotein (LDL) cholesterol less than 100 mg/dL Hypertension, unspecified type Chest pain of uncertain etiology Asthma, unspecified asthma severity, unspecified whether complicated, unspecified whether persistent WEISS (dyspnea on exertion) Other dyspnea and respiratory abnormality RUTH (obstructive sleep apnea) Obstructive sleep apnea (adult) (pediatric) Stage 2 chronic kidney disease Urinary incontinence, unspecified type Type 2 diabetes mellitus without complication, without long-term current use of insulin (HCC) Status post total right knee replacement Anxiety Anxiety state, unspecified Morbidly obese (HCC) Morbid obesity Encounter for screening mammogram for malignant neoplasm of breast Other screening mammogram [facility] Diagnosis Preoperative examination- Primary Preoperative examination, unspecified Arthritis of right knee Unspecified arthropathy, lower leg H/O Brain Aneurysm Cerebral aneurysm, nonruptured Cerebrovascular accident (CVA), unspecified mechanism (HCC) Essential hypertension, benign Hyperlipidemia with target low density lipoprotein (LDL) cholesterol less than 100 mg/dL Asthma, unspecified asthma severity, unspecified whether complicated, unspecified whether persistent Type 2 diabetes mellitus without complication, without long-term current use of insulin (HCC) Chest pain of uncertain etiology Anemia, unspecified type Morbidly obese (HCC) Morbid obesity Rotator cuff syndrome of left shoulder- Primary Disorders of bursae and tendons in shoulder region, unspecified Rotator cuff syndrome of right shoulder- Primary Disorders of bursae and tendons in shoulder region, unspecified Post-traumatic osteoarthritis of right shoulder Secondary localized osteoarthrosis, shoulder region Pre-operative examination- Primary Preoperative examination, unspecified Anemia, unspecified type Cerebrovascular accident (CVA), unspecified mechanism (HCC) H/O Brain Aneurysm Cerebral aneurysm, nonruptured Other polyneuropathy Atrial fibrillation, unspecified type (HCC) Hyperlipidemia with target low density lipoprotein (LDL) cholesterol less than 100 mg/dL Hypertension, unspecified type Chest pain of uncertain etiology Asthma, unspecified asthma severity, unspecified whether complicated, unspecified whether persistent WEISS (dyspnea on exertion) Other dyspnea and respiratory abnormality RUTH (obstructive sleep apnea) Obstructive sleep apnea (adult) (pediatric) Stage 2 chronic kidney disease Urinary incontinence, unspecified type Type 2 diabetes mellitus without complication, without long-term current use of insulin (HCC) Status post total right knee replacement Anxiety Anxiety state, unspecified Morbidly obese (HCC) Morbid obesity Insomnia, unspecified type- Primary Stage 2 chronic kidney disease Hyperlipidemia with target low density lipoprotein (LDL) cholesterol less than 100 mg/dL Hypertension, unspecified type Vitamin D deficiency Unspecified vitamin D deficiency Screening for thyroid disorder Encounter for immunization Need for other specified prophylactic vaccination against single bacterial disease RUTH (obstructive sleep apnea) Obstructive sleep apnea (adult) (pediatric) [facility] Diagnosis Preoperative examination- Primary Preoperative examination, unspecified Arthritis of right knee Unspecified arthropathy, lower leg H/O Brain Aneurysm Cerebral aneurysm, nonruptured Cerebrovascular accident (CVA), unspecified mechanism (HCC) Essential hypertension, benign Hyperlipidemia with target low density lipoprotein (LDL) cholesterol less than 100 mg/dL Asthma, unspecified asthma severity, unspecified whether complicated, unspecified whether persistent Type 2 diabetes mellitus without complication, without long-term current use of insulin (HCC) Chest pain of uncertain etiology Anemia, unspecified type Morbidly obese (HCC) Morbid obesity Rotator cuff syndrome of left shoulder- Primary Disorders of bursae and tendons in shoulder region, unspecified Rotator cuff syndrome of right shoulder- Primary Disorders of bursae and tendons in shoulder region, unspecified Post-traumatic osteoarthritis of right shoulder Secondary localized osteoarthrosis, shoulder region Pre-operative examination- Primary Preoperative examination, unspecified Anemia, unspecified type Cerebrovascular accident (CVA), unspecified mechanism (HCC) H/O Brain Aneurysm Cerebral aneurysm, nonruptured Other polyneuropathy Atrial fibrillation, unspecified type (HCC) Hyperlipidemia with target low density lipoprotein (LDL) cholesterol less than 100 mg/dL Hypertension, unspecified type Chest pain of uncertain etiology Asthma, unspecified asthma severity, unspecified whether complicated, unspecified whether persistent WEISS (dyspnea on exertion) Other dyspnea and respiratory abnormality RUTH (obstructive sleep apnea) Obstructive sleep apnea (adult) (pediatric) Stage 2 chronic kidney disease Urinary incontinence, unspecified type Type 2 diabetes mellitus without complication, without long-term current use of insulin (HCC) Status post total right knee replacement Anxiety Anxiety state, unspecified Morbidly obese (HCC) Morbid obesity S/P total knee arthroplasty, left [facility] Preoperative examination- Primary Preoperative examination, unspecified Arthritis of right knee Unspecified arthropathy, lower leg H/O Brain Aneurysm Cerebral aneurysm, nonruptured Cerebrovascular accident (CVA), unspecified mechanism (HCC) Essential hypertension, benign Hyperlipidemia with target low density lipoprotein (LDL) cholesterol less than 100 mg/dL Asthma, unspecified asthma severity, unspecified whether complicated, unspecified whether persistent Type 2 diabetes mellitus without complication, without long-term current use of insulin (HCC) Chest pain of uncertain etiology Anemia, unspecified type Morbidly obese (HCC) Morbid obesity Rotator cuff syndrome of left shoulder- Primary Disorders of bursae and tendons in shoulder region, unspecified Rotator cuff syndrome of right shoulder- Primary Disorders of bursae and tendons in shoulder region, unspecified Post-traumatic osteoarthritis of right shoulder Secondary localized osteoarthrosis, shoulder region Pre-operative examination- Primary Preoperative examination, unspecified Anemia, unspecified type Cerebrovascular accident (CVA), unspecified mechanism (HCC) H/O Brain Aneurysm Cerebral aneurysm, nonruptured Other polyneuropathy Atrial fibrillation, unspecified type (HCC) Hyperlipidemia with target low density lipoprotein (LDL) cholesterol less than 100 mg/dL Hypertension, unspecified type Chest pain of uncertain etiology Asthma, unspecified asthma severity, unspecified whether complicated, unspecified whether persistent WEISS (dyspnea on exertion) Other dyspnea and respiratory abnormality RUTH (obstructive sleep apnea) Obstructive sleep apnea (adult) (pediatric) Stage 2 chronic kidney disease Urinary incontinence, unspecified type Type 2 diabetes mellitus without complication, without long-term current use of insulin (HCC) Status post total right knee replacement Anxiety Anxiety state, unspecified Morbidly obese (HCC) Morbid obesity Hypertension, unspecified type [facility] Diagnosis Preoperative examination- Primary Preoperative examination, unspecified Arthritis of right knee Unspecified arthropathy, lower leg H/O Brain Aneurysm Cerebral aneurysm, nonruptured Cerebrovascular accident (CVA), unspecified mechanism (HCC) Essential hypertension, benign Hyperlipidemia with target low density lipoprotein (LDL) cholesterol less than 100 mg/dL Asthma, unspecified asthma severity, unspecified whether complicated, unspecified whether persistent Type 2 diabetes mellitus without complication, without long-term current use of insulin (HCC) Chest pain of uncertain etiology Anemia, unspecified type Morbidly obese (HCC) Morbid obesity Rotator cuff syndrome of left shoulder- Primary Disorders of bursae and tendons in shoulder region, unspecified Rotator cuff syndrome of right shoulder- Primary Disorders of bursae and tendons in shoulder region, unspecified Post-traumatic osteoarthritis of right shoulder Secondary localized osteoarthrosis, shoulder region Pre-operative examination- Primary Preoperative examination, unspecified Anemia, unspecified type Cerebrovascular accident (CVA), unspecified mechanism (HCC) H/O Brain Aneurysm Cerebral aneurysm, nonruptured Other polyneuropathy Atrial fibrillation, unspecified type (HCC) Hyperlipidemia with target low density lipoprotein (LDL) cholesterol less than 100 mg/dL Hypertension, unspecified type Chest pain of uncertain etiology Asthma, unspecified asthma severity, unspecified whether complicated, unspecified whether persistent WEISS (dyspnea on exertion) Other dyspnea and respiratory abnormality RUTH (obstructive sleep apnea) Obstructive sleep apnea (adult) (pediatric) Stage 2 chronic kidney disease Urinary incontinence, unspecified type Type 2 diabetes mellitus without complication, without long-term current use of insulin (HCC) Status post total right knee replacement Anxiety Anxiety state, unspecified Morbidly obese (HCC) Morbid obesity Aftercare following left knee joint replacement surgery [facility] Diagnosis Preoperative examination- Primary Preoperative examination, unspecified Arthritis of right knee Unspecified arthropathy, lower leg H/O Brain Aneurysm Cerebral aneurysm, nonruptured Cerebrovascular accident (CVA), unspecified mechanism (HCC) Essential hypertension, benign Hyperlipidemia with target low density lipoprotein (LDL) cholesterol less than 100 mg/dL Asthma, unspecified asthma severity, unspecified whether complicated, unspecified whether persistent Type 2 diabetes mellitus without complication, without long-term current use of insulin (HCC) Chest pain of uncertain etiology Anemia, unspecified type Morbidly obese (HCC) Morbid obesity Rotator cuff syndrome of left shoulder- Primary Disorders of bursae and tendons in shoulder region, unspecified Rotator cuff syndrome of right shoulder- Primary Disorders of bursae and tendons in shoulder region, unspecified Post-traumatic osteoarthritis of right shoulder Secondary localized osteoarthrosis, shoulder region Pre-operative examination- Primary Preoperative examination, unspecified Anemia, unspecified type Cerebrovascular accident (CVA), unspecified mechanism (HCC) H/O Brain Aneurysm Cerebral aneurysm, nonruptured Other polyneuropathy Atrial fibrillation, unspecified type (HCC) Hyperlipidemia with target low density lipoprotein (LDL) cholesterol less than 100 mg/dL Hypertension, unspecified type Chest pain of uncertain etiology Asthma, unspecified asthma severity, unspecified whether complicated, unspecified whether persistent WEISS (dyspnea on exertion) Other dyspnea and respiratory abnormality RUTH (obstructive sleep apnea) Obstructive sleep apnea (adult) (pediatric) Stage 2 chronic kidney disease Urinary incontinence, unspecified type Type 2 diabetes mellitus without complication, without long-term current use of insulin (HCC) Status post total right knee replacement Anxiety Anxiety state, unspecified Morbidly obese (HCC) Morbid obesity Aftercare following left knee joint replacement surgery- Primary [facility] Diagnosis Preoperative examination- Primary Preoperative examination, unspecified Arthritis of right knee Unspecified arthropathy, lower leg H/O Brain Aneurysm Cerebral aneurysm, nonruptured Cerebrovascular accident (CVA), unspecified mechanism (HCC) Essential hypertension, benign Hyperlipidemia with target low density lipoprotein (LDL) cholesterol less than 100 mg/dL Asthma, unspecified asthma severity, unspecified whether complicated, unspecified whether persistent Type 2 diabetes mellitus without complication, without long-term current use of insulin (HCC) Chest pain of uncertain etiology Anemia, unspecified type Morbidly obese (HCC) Morbid obesity Rotator cuff syndrome of left shoulder- Primary Disorders of bursae and tendons in shoulder region, unspecified Rotator cuff syndrome of right shoulder- Primary Disorders of bursae and tendons in shoulder region, unspecified Post-traumatic osteoarthritis of right shoulder Secondary localized osteoarthrosis, shoulder region Pre-operative examination- Primary Preoperative examination, unspecified Anemia, unspecified type Cerebrovascular accident (CVA), unspecified mechanism (HCC) H/O Brain Aneurysm Cerebral aneurysm, nonruptured Other polyneuropathy Atrial fibrillation, unspecified type (HCC) Hyperlipidemia with target low density lipoprotein (LDL) cholesterol less than 100 mg/dL Hypertension, unspecified type Chest pain of uncertain etiology Asthma, unspecified asthma severity, unspecified whether complicated, unspecified whether persistent WEISS (dyspnea on exertion) Other dyspnea and respiratory abnormality RUTH (obstructive sleep apnea) Obstructive sleep apnea (adult) (pediatric) Stage 2 chronic kidney disease Urinary incontinence, unspecified type Type 2 diabetes mellitus without complication, without long-term current use of insulin (HCC) Status post total right knee replacement Anxiety Anxiety state, unspecified Morbidly obese (HCC) Morbid obesity Hypertension, unspecified type Other polyneuropathy [facility] Diagnosis Preoperative examination- Primary Preoperative examination, unspecified Arthritis of right knee Unspecified arthropathy, lower leg H/O Brain Aneurysm Cerebral aneurysm, nonruptured Cerebrovascular accident (CVA), unspecified mechanism (HCC) Essential hypertension, benign Hyperlipidemia with target low density lipoprotein (LDL) cholesterol less than 100 mg/dL Asthma, unspecified asthma severity, unspecified whether complicated, unspecified whether persistent Type 2 diabetes mellitus without complication, without long-term current use of insulin (HCC) Chest pain of uncertain etiology Anemia, unspecified type Morbidly obese (HCC) Morbid obesity Rotator cuff syndrome of left shoulder- Primary Disorders of bursae and tendons in shoulder region, unspecified Rotator cuff syndrome of right shoulder- Primary Disorders of bursae and tendons in shoulder region, unspecified Post-traumatic osteoarthritis of right shoulder Secondary localized osteoarthrosis, shoulder region Pre-operative examination- Primary Preoperative examination, unspecified Anemia, unspecified type Cerebrovascular accident (CVA), unspecified mechanism (HCC) H/O Brain Aneurysm Cerebral aneurysm, nonruptured Other polyneuropathy Atrial fibrillation, unspecified type (HCC) Hyperlipidemia with target low density lipoprotein (LDL) cholesterol less than 100 mg/dL Hypertension, unspecified type Chest pain of uncertain etiology Asthma, unspecified asthma severity, unspecified whether complicated, unspecified whether persistent WEISS (dyspnea on exertion) Other dyspnea and respiratory abnormality RUTH (obstructive sleep apnea) Obstructive sleep apnea (adult) (pediatric) Stage 2 chronic kidney disease Urinary incontinence, unspecified type Type 2 diabetes mellitus without complication, without long-term current use of insulin (HCC) Status post total right knee replacement Anxiety Anxiety state, unspecified Morbidly obese (HCC) Morbid obesity Insomnia, unspecified type [facility] Diagnosis Primary hypertension Unspecified essential hypertension High cholesterol Pure hypercholesterolemia Gastroesophageal reflux disease without esophagitis Esophageal reflux Morbid obesity with BMI of 45.0-49.9, adult ([facility]/HCC) (HCC) documented in [facility]* Diagnosis Primary hypertension- Primary Unspecified essential hypertension Morbid obesity, unspecified obesity type (HCC) Gastro-esophageal reflux disease without esophagitis documented in this encounter [facility]* Diagnosis Primary hypertension- Primary Unspecified essential hypertension Morbid obesity, unspecified obesity type (HCC) Gastro-esophageal reflux disease without esophagitis [facility] Diagnosis Preoperative examination- Primary Preoperative examination, unspecified Arthritis of right knee Unspecified arthropathy, lower leg H/O Brain Aneurysm Cerebral aneurysm, nonruptured Cerebrovascular accident (CVA), unspecified mechanism (HCC) Essential hypertension, benign Hyperlipidemia with target low density lipoprotein (LDL) cholesterol less than 100 mg/dL Asthma, unspecified asthma severity, unspecified whether complicated, unspecified whether persistent Type 2 diabetes mellitus without complication, without long-term current use of insulin (HCC) Chest pain of uncertain etiology Anemia, unspecified type Morbidly obese (HCC) Morbid obesity Rotator cuff syndrome of left shoulder- Primary Disorders of bursae and tendons in shoulder region, unspecified Rotator cuff syndrome of right shoulder- Primary Disorders of bursae and tendons in shoulder region, unspecified Post-traumatic osteoarthritis of right shoulder Secondary localized osteoarthrosis, shoulder region Pre-operative examination- Primary Preoperative examination, unspecified Anemia, unspecified type Cerebrovascular accident (CVA), unspecified mechanism (HCC) H/O Brain Aneurysm Cerebral aneurysm, nonruptured Other polyneuropathy Atrial fibrillation, unspecified type (HCC) Hyperlipidemia with target low density lipoprotein (LDL) cholesterol less than 100 mg/dL Hypertension, unspecified type Chest pain of uncertain etiology Asthma, unspecified asthma severity, unspecified whether complicated, unspecified whether persistent WEISS (dyspnea on exertion) Other dyspnea and respiratory abnormality RUTH (obstructive sleep apnea) Obstructive sleep apnea (adult) (pediatric) Stage 2 chronic kidney disease Urinary incontinence, unspecified type Type 2 diabetes mellitus without complication, without long-term current use of insulin (HCC) Status post total right knee replacement Anxiety Anxiety state, unspecified Morbidly obese (HCC) Morbid obesity Acute non-recurrent sinusitis, unspecified location- Primary Sore throat Acute pharyngitis [facility] Diagnosis Preoperative examination- Primary Preoperative examination, unspecified Arthritis of right knee Unspecified arthropathy, lower leg H/O Brain Aneurysm Cerebral aneurysm, nonruptured Cerebrovascular accident (CVA), unspecified mechanism (HCC) Essential hypertension, benign Hyperlipidemia with target low density lipoprotein (LDL) cholesterol less than 100 mg/dL Asthma, unspecified asthma severity, unspecified whether complicated, unspecified whether persistent Type 2 diabetes mellitus without complication, without long-term current use of insulin (HCC) Chest pain of uncertain etiology Anemia, unspecified type Morbidly obese (HCC) Morbid obesity Rotator cuff syndrome of left shoulder- Primary Disorders of bursae and tendons in shoulder region, unspecified Rotator cuff syndrome of right shoulder- Primary Disorders of bursae and tendons in shoulder region, unspecified Post-traumatic osteoarthritis of right shoulder Secondary localized osteoarthrosis, shoulder region Pre-operative examination- Primary Preoperative examination, unspecified Anemia, unspecified type Cerebrovascular accident (CVA), unspecified mechanism (HCC) H/O Brain Aneurysm Cerebral aneurysm, nonruptured Other polyneuropathy Atrial fibrillation, unspecified type (HCC) Hyperlipidemia with target low density lipoprotein (LDL) cholesterol less than 100 mg/dL Hypertension, unspecified type Chest pain of uncertain etiology Asthma, unspecified asthma severity, unspecified whether complicated, unspecified whether persistent WEISS (dyspnea on exertion) Other dyspnea and respiratory abnormality RUTH (obstructive sleep apnea) Obstructive sleep apnea (adult) (pediatric) Stage 2 chronic kidney disease Urinary incontinence, unspecified type Type 2 diabetes mellitus without complication, without long-term current use of insulin (HCC) Status post total right knee replacement Anxiety Anxiety state, unspecified Morbidly obese (HCC) Morbid obesity Dizziness- Primary Dizziness and giddiness Insomnia, unspecified type Urinary incontinence, unspecified type Hypertension, unspecified type Vitamin D deficiency Unspecified vitamin D deficiency Hyperlipidemia with target low density lipoprotein (LDL) cholesterol less than 100 mg/dL Screening for thyroid disorder Encounter for vision screening Examination of eyes and vision [facility] Diagnosis Preoperative examination- Primary Preoperative examination, unspecified Arthritis of right knee Unspecified arthropathy, lower leg H/O Brain Aneurysm Cerebral aneurysm, nonruptured Cerebrovascular accident (CVA), unspecified mechanism (HCC) Essential hypertension, benign Hyperlipidemia with target low density lipoprotein (LDL) cholesterol less than 100 mg/dL Asthma, unspecified asthma severity, unspecified whether complicated, unspecified whether persistent Type 2 diabetes mellitus without complication, without long-term current use of insulin (HCC) Chest pain of uncertain etiology Anemia, unspecified type Morbidly obese (HCC) Morbid obesity Rotator cuff syndrome of left shoulder- Primary Disorders of bursae and tendons in shoulder region, unspecified Rotator cuff syndrome of right shoulder- Primary Disorders of bursae and tendons in shoulder region, unspecified Post-traumatic osteoarthritis of right shoulder Secondary localized osteoarthrosis, shoulder region Pre-operative examination- Primary Preoperative examination, unspecified Anemia, unspecified type Cerebrovascular accident (CVA), unspecified mechanism (HCC) H/O Brain Aneurysm Cerebral aneurysm, nonruptured Other polyneuropathy Atrial fibrillation, unspecified type (HCC) Hyperlipidemia with target low density lipoprotein (LDL) cholesterol less than 100 mg/dL Hypertension, unspecified type Chest pain of uncertain etiology Asthma, unspecified asthma severity, unspecified whether complicated, unspecified whether persistent WEISS (dyspnea on exertion) Other dyspnea and respiratory abnormality RUTH (obstructive sleep apnea) Obstructive sleep apnea (adult) (pediatric) Stage 2 chronic kidney disease Urinary incontinence, unspecified type Type 2 diabetes mellitus without complication, without long-term current use of insulin (HCC) Status post total right knee replacement Anxiety Anxiety state, unspecified Morbidly obese (HCC) Morbid obesity URI, acute- Primary Acute upper respiratory infections of unspecified site [facility]* Diagnosis Preoperative examination- Primary Preoperative examination, unspecified Arthritis of right knee Unspecified arthropathy, lower leg H/O Brain Aneurysm Cerebral aneurysm, nonruptured Cerebrovascular accident (CVA), unspecified mechanism (HCC) Essential hypertension, benign Hyperlipidemia with target low density lipoprotein (LDL) cholesterol less than 100 mg/dL Asthma, unspecified asthma severity, unspecified whether complicated, unspecified whether persistent Type 2 diabetes mellitus without complication, without long-term current use of insulin (HCC) Chest pain of uncertain etiology Anemia, unspecified type Morbidly obese (HCC) Morbid obesity Rotator cuff syndrome of left shoulder- Primary Disorders of bursae and tendons in shoulder region, unspecified Rotator cuff syndrome of right shoulder- Primary Disorders of bursae and tendons in shoulder region, unspecified Post-traumatic osteoarthritis of right shoulder Secondary localized osteoarthrosis, shoulder region Pre-operative examination- Primary Preoperative examination, unspecified Anemia, unspecified type Cerebrovascular accident (CVA), unspecified mechanism (HCC) H/O Brain Aneurysm Cerebral aneurysm, nonruptured Other polyneuropathy Atrial fibrillation, unspecified type (HCC) Hyperlipidemia with target low density lipoprotein (LDL) cholesterol less than 100 mg/dL Hypertension, unspecified type Chest pain of uncertain etiology Asthma, unspecified asthma severity, unspecified whether complicated, unspecified whether persistent WEISS (dyspnea on exertion) Other dyspnea and respiratory abnormality RUTH (obstructive sleep apnea) Obstructive sleep apnea (adult) (pediatric) Stage 2 chronic kidney disease Urinary incontinence, unspecified type Type 2 diabetes mellitus without complication, without long-term current use of insulin (HCC) Status post total right knee replacement Anxiety Anxiety state, unspecified Morbidly obese (HCC) Morbid obesity Sinobronchitis- Primary Unspecified sinusitis (chronic) [facility] Diagnosis Preoperative examination- Primary Preoperative examination, unspecified Arthritis of right knee Unspecified arthropathy, lower leg H/O Brain Aneurysm Cerebral aneurysm, nonruptured Cerebrovascular accident (CVA), unspecified mechanism (HCC) Essential hypertension, benign Hyperlipidemia with target low density lipoprotein (LDL) cholesterol less than 100 mg/dL Asthma, unspecified asthma severity, unspecified whether complicated, unspecified whether persistent Type 2 diabetes mellitus without complication, without long-term current use of insulin (HCC) Chest pain of uncertain etiology Anemia, unspecified type Morbidly obese (HCC) Morbid obesity Rotator cuff syndrome of left shoulder- Primary Disorders of bursae and tendons in shoulder region, unspecified Rotator cuff syndrome of right shoulder- Primary Disorders of bursae and tendons in shoulder region, unspecified Post-traumatic osteoarthritis of right shoulder Secondary localized osteoarthrosis, shoulder region Pre-operative examination- Primary Preoperative examination, unspecified Anemia, unspecified type Cerebrovascular accident (CVA), unspecified mechanism (HCC) H/O Brain Aneurysm Cerebral aneurysm, nonruptured Other polyneuropathy Atrial fibrillation, unspecified type (HCC) Hyperlipidemia with target low density lipoprotein (LDL) cholesterol less than 100 mg/dL Hypertension, unspecified type Chest pain of uncertain etiology Asthma, unspecified asthma severity, unspecified whether complicated, unspecified whether persistent WEISS (dyspnea on exertion) Other dyspnea and respiratory abnormality RUTH (obstructive sleep apnea) Obstructive sleep apnea (adult) (pediatric) Stage 2 chronic kidney disease Urinary incontinence, unspecified type Type 2 diabetes mellitus without complication, without long-term current use of insulin (HCC) Status post total right knee replacement Anxiety Anxiety state, unspecified Morbidly obese (HCC) Morbid obesity Vitamin D deficiency Unspecified vitamin D deficiency [facility] Diagnosis Preoperative examination- Primary Preoperative examination, unspecified Arthritis of right knee Unspecified arthropathy, lower leg H/O Brain Aneurysm Cerebral aneurysm, nonruptured Cerebrovascular accident (CVA), unspecified mechanism (HCC) Essential hypertension, benign Hyperlipidemia with target low density lipoprotein (LDL) cholesterol less than 100 mg/dL Asthma, unspecified asthma severity, unspecified whether complicated, unspecified whether persistent Type 2 diabetes mellitus without complication, without long-term current use of insulin (HCC) Chest pain of uncertain etiology Anemia, unspecified type Morbidly obese (HCC) Morbid obesity Rotator cuff syndrome of left shoulder- Primary Disorders of bursae and tendons in shoulder region, unspecified Rotator cuff syndrome of right shoulder- Primary Disorders of bursae and tendons in shoulder region, unspecified Post-traumatic osteoarthritis of right shoulder Secondary localized osteoarthrosis, shoulder region Pre-operative examination- Primary Preoperative examination, unspecified Anemia, unspecified type Cerebrovascular accident (CVA), unspecified mechanism (HCC) H/O Brain Aneurysm Cerebral aneurysm, nonruptured Other polyneuropathy Atrial fibrillation, unspecified type (HCC) Hyperlipidemia with target low density lipoprotein (LDL) cholesterol less than 100 mg/dL Hypertension, unspecified type Chest pain of uncertain etiology Asthma, unspecified asthma severity, unspecified whether complicated, unspecified whether persistent WEISS (dyspnea on exertion) Other dyspnea and respiratory abnormality RUTH (obstructive sleep apnea) Obstructive sleep apnea (adult) (pediatric) Stage 2 chronic kidney disease Urinary incontinence, unspecified type Type 2 diabetes mellitus without complication, without long-term current use of insulin (HCC) Status post total right knee replacement Anxiety Anxiety state, unspecified Morbidly obese (HCC) Morbid obesity Status post total left knee replacement- Primary documented in this encounter [facility] note* Diagnosis Preoperative examination- Primary Preoperative examination, unspecified Arthritis of right knee Unspecified arthropathy, lower leg H/O Brain Aneurysm Cerebral aneurysm, nonruptured Cerebrovascular accident (CVA), unspecified mechanism (HCC) Essential hypertension, benign Hyperlipidemia with target low density lipoprotein (LDL) cholesterol less than 100 mg/dL Asthma, unspecified asthma severity, unspecified whether complicated, unspecified whether persistent (HCC) Type 2 diabetes mellitus without complication, without long-term current use of insulin (HCC) Chest pain of uncertain etiology Anemia, unspecified type Morbidly obese (HCC) Morbid obesity Rotator cuff syndrome of left shoulder- Primary Disorders of bursae and tendons in shoulder region, unspecified Rotator cuff syndrome of right shoulder- Primary Disorders of bursae and tendons in shoulder region, unspecified Post-traumatic osteoarthritis of right shoulder Secondary localized osteoarthrosis, shoulder region Pre-operative examination- Primary Preoperative examination, unspecified Anemia, unspecified type Cerebrovascular accident (CVA), unspecified mechanism (HCC) H/O Brain Aneurysm Cerebral aneurysm, nonruptured Other polyneuropathy Atrial fibrillation, unspecified type (HCC) Hyperlipidemia with target low density lipoprotein (LDL) cholesterol less than 100 mg/dL Hypertension, unspecified type Chest pain of uncertain etiology Asthma, unspecified asthma severity, unspecified whether complicated, unspecified whether persistent (HCC) WEISS (dyspnea on exertion) Other dyspnea and respiratory abnormality RUTH (obstructive sleep apnea) Obstructive sleep apnea (adult) (pediatric) Stage 2 chronic kidney disease Urinary incontinence, unspecified type Type 2 diabetes mellitus without complication, without long-term current use of insulin (HCC) Status post total right knee replacement Anxiety Anxiety state, unspecified Morbidly obese (HCC) Morbid obesity Left knee pain, unspecified chronicity- Primary documented in this encounter [facility] note* Diagnosis Preoperative examination- Primary Preoperative examination, unspecified Arthritis of right knee Unspecified arthropathy, lower leg H/O Brain Aneurysm Cerebral aneurysm, nonruptured Cerebrovascular accident (CVA), unspecified mechanism (HCC) Essential hypertension, benign Hyperlipidemia with target low density lipoprotein (LDL) cholesterol less than 100 mg/dL Asthma, unspecified asthma severity, unspecified whether complicated, unspecified whether persistent (HCC) Type 2 diabetes mellitus without complication, without long-term current use of insulin (HCC) Chest pain of uncertain etiology Anemia, unspecified type Morbidly obese (HCC) Morbid obesity Rotator cuff syndrome of left shoulder- Primary Disorders of bursae and tendons in shoulder region, unspecified Rotator cuff syndrome of right shoulder- Primary Disorders of bursae and tendons in shoulder region, unspecified Post-traumatic osteoarthritis of right shoulder Secondary localized osteoarthrosis, shoulder region Pre-operative examination- Primary Preoperative examination, unspecified Anemia, unspecified type Cerebrovascular accident (CVA), unspecified mechanism (HCC) H/O Brain Aneurysm Cerebral aneurysm, nonruptured Other polyneuropathy Atrial fibrillation, unspecified type (HCC) Hyperlipidemia with target low density lipoprotein (LDL) cholesterol less than 100 mg/dL Hypertension, unspecified type Chest pain of uncertain etiology Asthma, unspecified asthma severity, unspecified whether complicated, unspecified whether persistent (HCC) WEISS (dyspnea on exertion) Other dyspnea and respiratory abnormality RUTH (obstructive sleep apnea) Obstructive sleep apnea (adult) (pediatric) Stage 2 chronic kidney disease Urinary incontinence, unspecified type Type 2 diabetes mellitus without complication, without long-term current use of insulin (HCC) Status post total right knee replacement Anxiety Anxiety state, unspecified Morbidly obese (HCC) Morbid obesity Pain due to total left knee replacement, subsequent encounter- Primary Patellar tendinitis of left knee Patellar tendinitis Pain due to internal orthopedic prosthetic devices, implants and grafts, initial encounter [facility] Preoperative examination- Primary Preoperative examination, unspecified Arthritis of right knee Unspecified arthropathy, lower leg H/O Brain Aneurysm Cerebral aneurysm, nonruptured Cerebrovascular accident (CVA), unspecified mechanism (HCC) Essential hypertension, benign Hyperlipidemia with target low density lipoprotein (LDL) cholesterol less than 100 mg/dL Asthma, unspecified asthma severity, unspecified whether complicated, unspecified whether persistent (HCC) Type 2 diabetes mellitus without complication, without long-term current use of insulin (HCC) Chest pain of uncertain etiology Anemia, unspecified type Morbidly obese (HCC) Morbid obesity Rotator cuff syndrome of left shoulder- Primary Disorders of bursae and tendons in shoulder region, unspecified Rotator cuff syndrome of right shoulder- Primary Disorders of bursae and tendons in shoulder region, unspecified Post-traumatic osteoarthritis of right shoulder Secondary localized osteoarthrosis, shoulder region Pre-operative examination- Primary Preoperative examination, unspecified Anemia, unspecified type Cerebrovascular accident (CVA), unspecified mechanism (HCC) H/O Brain Aneurysm Cerebral aneurysm, nonruptured Other polyneuropathy Atrial fibrillation, unspecified type (HCC) Hyperlipidemia with target low density lipoprotein (LDL) cholesterol less than 100 mg/dL Hypertension, unspecified type Chest pain of uncertain etiology Asthma, unspecified asthma severity, unspecified whether complicated, unspecified whether persistent (HCC) WEISS (dyspnea on exertion) Other dyspnea and respiratory abnormality RUTH (obstructive sleep apnea) Obstructive sleep apnea (adult) (pediatric) Stage 2 chronic kidney disease Urinary incontinence, unspecified type Type 2 diabetes mellitus without complication, without long-term current use of insulin (HCC) Status post total right knee replacement Anxiety Anxiety state, unspecified Morbidly obese (HCC) Morbid obesity Left knee pain, unspecified chronicity [facility] Diagnosis Preoperative examination- Primary Preoperative examination, unspecified Arthritis of right knee Unspecified arthropathy, lower leg H/O Brain Aneurysm Cerebral aneurysm, nonruptured Cerebrovascular accident (CVA), unspecified mechanism (HCC) Essential hypertension, benign Hyperlipidemia with target low density lipoprotein (LDL) cholesterol less than 100 mg/dL Asthma, unspecified asthma severity, unspecified whether complicated, unspecified whether persistent (HCC) Type 2 diabetes mellitus without complication, without long-term current use of insulin (HCC) Chest pain of uncertain etiology Anemia, unspecified type Morbidly obese (HCC) Morbid obesity Rotator cuff syndrome of left shoulder- Primary Disorders of bursae and tendons in shoulder region, unspecified Rotator cuff syndrome of right shoulder- Primary Disorders of bursae and tendons in shoulder region, unspecified Post-traumatic osteoarthritis of right shoulder Secondary localized osteoarthrosis, shoulder region Pre-operative examination- Primary Preoperative examination, unspecified Anemia, unspecified type Cerebrovascular accident (CVA), unspecified mechanism (HCC) H/O Brain Aneurysm Cerebral aneurysm, nonruptured Other polyneuropathy Atrial fibrillation, unspecified type (HCC) Hyperlipidemia with target low density lipoprotein (LDL) cholesterol less than 100 mg/dL Hypertension, unspecified type Chest pain of uncertain etiology Asthma, unspecified asthma severity, unspecified whether complicated, unspecified whether persistent (HCC) WEISS (dyspnea on exertion) Other dyspnea and respiratory abnormality RUTH (obstructive sleep apnea) Obstructive sleep apnea (adult) (pediatric) Stage 2 chronic kidney disease Urinary incontinence, unspecified type Type 2 diabetes mellitus without complication, without long-term current use of insulin (HCC) Status post total right knee replacement Anxiety Anxiety state, unspecified Morbidly obese (HCC) Morbid obesity Other polyneuropathy documented in this encounter [facility] note* Diagnosis Preoperative examination- Primary Preoperative examination, unspecified Arthritis of right knee Unspecified arthropathy, lower leg H/O Brain Aneurysm Cerebral aneurysm, nonruptured Cerebrovascular accident (CVA), unspecified mechanism (HCC) Essential hypertension, benign Hyperlipidemia with target low density lipoprotein (LDL) cholesterol less than 100 mg/dL Asthma, unspecified asthma severity, unspecified whether complicated, unspecified whether persistent (HCC) Type 2 diabetes mellitus without complication, without long-term current use of insulin (HCC) Chest pain of uncertain etiology Anemia, unspecified type Morbidly obese (HCC) Morbid obesity Rotator cuff syndrome of left shoulder- Primary Disorders of bursae and tendons in shoulder region, unspecified Rotator cuff syndrome of right shoulder- Primary Disorders of bursae and tendons in shoulder region, unspecified Post-traumatic osteoarthritis of right shoulder Secondary localized osteoarthrosis, shoulder region Pre-operative examination- Primary Preoperative examination, unspecified Anemia, unspecified type Cerebrovascular accident (CVA), unspecified mechanism (HCC) H/O Brain Aneurysm Cerebral aneurysm, nonruptured Other polyneuropathy Atrial fibrillation, unspecified type (HCC) Hyperlipidemia with target low density lipoprotein (LDL) cholesterol less than 100 mg/dL Hypertension, unspecified type Chest pain of uncertain etiology Asthma, unspecified asthma severity, unspecified whether complicated, unspecified whether persistent (HCC) WEISS (dyspnea on exertion) Other dyspnea and respiratory abnormality RUTH (obstructive sleep apnea) Obstructive sleep apnea (adult) (pediatric) Stage 2 chronic kidney disease Urinary incontinence, unspecified type Type 2 diabetes mellitus without complication, without long-term current use of insulin (HCC) Status post total right knee replacement Anxiety Anxiety state, unspecified Morbidly obese (HCC) Morbid obesity Anxiety- Primary Anxiety state, unspecified Panic attack as reaction to stress Predominant disturbance of emotions Type 2 diabetes mellitus without complication, without long-term current use of insulin (HCC) Asthma, unspecified asthma severity, unspecified whether complicated, unspecified whether persistent (HCC) documented in this encounter [facility] note* Diagnosis Preoperative examination- Primary Preoperative examination, unspecified Arthritis of right knee Unspecified arthropathy, lower leg H/O Brain Aneurysm Cerebral aneurysm, nonruptured Cerebrovascular accident (CVA), unspecified mechanism (HCC) Essential hypertension, benign Hyperlipidemia with target low density lipoprotein (LDL) cholesterol less than 100 mg/dL Asthma, unspecified asthma severity, unspecified whether complicated, unspecified whether persistent (HCC) Type 2 diabetes mellitus without complication, without long-term current use of insulin (HCC) Chest pain of uncertain etiology Anemia, unspecified type Morbidly obese (HCC) Morbid obesity Rotator cuff syndrome of left shoulder- Primary Disorders of bursae and tendons in shoulder region, unspecified Rotator cuff syndrome of right shoulder- Primary Disorders of bursae and tendons in shoulder region, unspecified Post-traumatic osteoarthritis of right shoulder Secondary localized osteoarthrosis, shoulder region Pre-operative examination- Primary Preoperative examination, unspecified Anemia, unspecified type Cerebrovascular accident (CVA), unspecified mechanism (HCC) H/O Brain Aneurysm Cerebral aneurysm, nonruptured Other polyneuropathy Atrial fibrillation, unspecified type (HCC) Hyperlipidemia with target low density lipoprotein (LDL) cholesterol less than 100 mg/dL Hypertension, unspecified type Chest pain of uncertain etiology Asthma, unspecified asthma severity, unspecified whether complicated, unspecified whether persistent (HCC) WEISS (dyspnea on exertion) Other dyspnea and respiratory abnormality RUTH (obstructive sleep apnea) Obstructive sleep apnea (adult) (pediatric) Stage 2 chronic kidney disease Urinary incontinence, unspecified type Type 2 diabetes mellitus without complication, without long-term current use of insulin (HCC) Status post total right knee replacement Anxiety Anxiety state, unspecified Morbidly obese (HCC) Morbid obesity Medicare annual wellness visit, subsequent- Primary Routine general medical examination at a health care facility Type 2 diabetes mellitus without complication, without long-term current use of insulin (HCC) Moderate recurrent major depression (HCC) Major depressive disorder, recurrent episode, moderate Anxiety Anxiety state, unspecified Panic attack as reaction to stress Predominant disturbance of emotions Asthma, unspecified asthma severity, unspecified whether complicated, unspecified whether persistent (HCC) Hypertension, unspecified type Other polyneuropathy Encounter for screening mammogram for malignant neoplasm of breast Other screening mammogram Asymptomatic menopause RUTH (obstructive sleep apnea) Obstructive sleep apnea (adult) (pediatric) Class 3 severe obesity with serious comorbidity and body mass index (BMI) of 40.0 to 44.9 in adult, unspecified obesity type (HCC) Stage 3a chronic kidney disease (HCC) documented in this encounter [facility] Discharge instructions Additional Instructions Follow-up with your global risk management director as soon as possible to discuss symptoms and medications.[facility] Work Phone: Hospital Discharge instructions Additional Instructions Please talk to your global risk management director about further treatment options regarding your paroxysmal atrial fibrillation and return to the ER should you have any [facility] Discharge instructions Additional Instructions Please follow-up with your orthopedic surgeon as scheduled. You can follow-up with your primary care physician in the meantime.[facility] Work Phone: Patient's home Plan of care note* Visit Details Visit Type -PT ROUTINE Discipline -Physical Therapy Problems Problem Description Start Date Status Goals Interve ntions Sepsis Disciplines: Skilled Services 02/06/2024 Active 1 goal linked to scheduled/document ed intervention 1 goal intervention scheduled/document ed in this visit Physician Specific Parameters Disciplines: Skilled Services 02/06/2024 Active 1 goal linked to scheduled/document ed intervention 1 goal intervention scheduled/document ed in this visit Risk for Falls Disciplines: Skilled Services 02/06/2024 Active 1 goal linked to scheduled/document ed intervention 1 goal intervention scheduled/document ed in this visit Pain Disciplines: Skilled Services 02/06/2024 Active 1 goal linked to scheduled/document ed intervention 1 goal intervention scheduled/document ed in this visit PT Impaired muscle performance and/or ROM Disciplines: PT 02/06/2024 Active 1 goal linked to scheduled/document ed intervention 1 goal intervention scheduled/document ed in this visit PT Impaired mobility Disciplines: PT 02/06/2024 Active 1 goal linked to scheduled/document ed intervention 1 goal intervention scheduled/document ed in this visit PT Impaired gait Disciplines: PT 02/06/2024 Active 1 goal linked to scheduled/document ed intervention 1 goal intervention scheduled/document ed in this visit PT Orthopedic Condition Disciplines: PT 02/06/2024 Active 1 goal linked to scheduled/document ed intervention 4 goal interventions scheduled/document ed in this visit PT Learning Assessment Disciplines: PT 02/06/2024 Active 1 goal linked to scheduled/document ed intervention 1 goal intervention scheduled/document ed in this visit Goals Goal Associated Problem Outcome Goal Met? Visit Notes Patient/caregiver will be able to identify and report symptoms of sepsis Description: Patient/caregiver will be able to identify signs/symptoms of sepsis infection and will verbalize actions to take if suspected by 04/05/24 Sepsis No Patient to maintain parameters within physician-specified ranges throughout certification period Physician Specific Parameters No Manage Risk for falls Description: Patient/caregiver will verbalize knowledge of individualized fall prevention strategies by 04/05/24 Risk for Falls No Manage Pain Description: Patient/caregiver will verbalize knowledge and understanding of appropriate techniques to control pain, including pain medication and non-pharmacological techniques. Patient will verbalize or demonstrate an acceptable level of pain as evidenced by a pain score of 6/10 and improvement in ability to perform activities of daily living to be achieved by 04/05/24 Pain No Improved Muscle Performance and/or ROM Description: LTG: Patient and/or caregiver will verbalize/demonstrate independence with home exercise program, to improve functional mobility, to be achieved by 02/26/24. PT Impaired muscle performance and/or ROM No Improved Transfers Description: STG: Patient will demonstrate safe transfers to/from bed, chair and toilet independently, to be achieved by 02/19/24 LTG: Patient will demonstrate safe transfers to/from shower/tub independently, to be achieved by 02/26/24. PT Impaired mobility No Improved Gait Description: LTG: Patient will demonstrate improved gait ability as evidenced by ambulation 150 feet with single point cane independently with AD, to return to safe household and community ambulation, in order to attend medical appointments, to be achieved by 02/26/24 PT Impaired gait No Manage Orthopedic Condition Description: Improve patient and/or caregiver understanding of post surgical and/or non-surgical orthopedic intervention management as evidenced by patient and/or caregiver able to verbalize, demonstrate, and teach back instruction, to be achieved by 02/26/24. PT Orthopedic Condition No Demonstrate understanding of education Description: Patient and/or caregiver will understand educational instruction to be achieved by 02/26/24 PT Learning Assessment No Interventions Intervention Associated Problem/Goal Status Variance Visit Notes Risk of Sepsis Description: Patient is at risk for sepsis. Monitor closely for s/s of sepsis. Problem:Sepsis Goal:Patient/caregive r will be able to identify and report symptoms of sepsis Completed SPO2 Description: Notify Dr. Bradley if pulse ox is <92% at rest. Problem:Physician Specific Parameters Goal:Patient to maintain parameters within physician-specified ranges throughout certification period Completed Instruct on individual fall risk factors and strategies to prevent falls and injuries caused by falls. Problem:Risk for Falls Goal:Manage Risk for falls Completed PT: Patient instructed on Eliminating Environmental Hazards: Keep pathways clear, Keep pets out of pathways, Remove unsafe rugs, Move furniture from pathways and Wear supportive shoes or non-skid socks Managing Impaired Functional Mobility: Use assistive device(s): front wheeled walker Managing Pain Instruct on pain and instruct on strategies to control pain Problem:Pain Goal:Manage Pain Completed patient instructed on techniques to control pain including Pharmacological measures and Non-Pharmacological measures; rest, positioning/elevation and use of thermal modalities, apply ice to affected area . Physical Therapy Therapeutic Exercises Problem:PT Impaired muscle performance and/or ROM Goal:Improved Muscle Performance and/or ROM Completed patient instructed on strengthening and range of motion exercises including Supine : GS,QS, HIPADD, HIP ABD, HEEL SLIDES, SAQ, X 10 supin epassive knee ext x 5 mni seated knee flexion to 75* with tactile, written and verbal cues for technique . patient instructed to perform home exercise program twice a day which included hourly ambulation. Physical Therapy Transfer Training Problem:PT Impaired mobility Goal:Improved Transfers Completed Transfer training and instruction to patient on safe transfers to and from couch with contact guard assist and tactile and verbal cues for lifting the leg on/off to the couch Physical Therapy Gait Training Problem:PT Impaired gait Goal:Improved Gait Completed Gait training and instruction to patient on safe ambulation with front wheeled walker for 40' x 2 feet with supervision, with verbal cues for corrections of gait deviations including - pt using step together sequencing and sliding the RLE forward . Instruct on orthopedic precautions and weight bearing restrictions Description: Orthopedic precautions including left total knee: no crossing legs, no knee flexed over pillow at rest, no kneeling, no squatting and no twisting. Weight bearing restrictions include: WBAT of involved extremity. Problem:PT Orthopedic Condition Goal:Manage Orthopedic Condition Completed patient instructed on orthopedic precautions. Instruct on management of edema Problem:PT Orthopedic Condition Goal:Manage Orthopedic Condition Completed Instruct patient on management of edema including elevation of LLE above the level of the heart and ice. Physical therapy to perform surgical incision/wound management Description: Removal of post-op dressing on POD 7-10, (02/09-02/12). If no drainage is present, leave open to air; if drainage is present, cover with clean dressing and contact provider and PT case management social worker. Dr Bradley notified that upper third of dressing was loose at SOC and secured with tape; inquired if he wanted it removed prior to 7 day window Problem:PT Orthopedic Condition Goal:Manage Orthopedic Condition Completed Intervention completed this date. Dressing removed - incision clean, dry and healing well. With pts permission and photo was uploaded for MD to review Instruct on self-management of post surgical and/or non-surgical orthopedic intervention Problem:PT Orthopedic Condition Goal:Manage Orthopedic Condition Completed patient instructed on managagement of orthopedic condition, measures to avoid skin breakdown, staying well hydrated, eating foods with high protein, signs and symptoms of infection, signs and symptoms of DVT/PE, follow provider guidance for showering and instructed on when to call provider. Instruct and educate on knowledge deficits Problem:PT Learning Assessment Goal:Demonstrate understanding of education Completed patient verbalize and/or demonstrate understanding of physical therapy education including orthopedic condition management, weight bearing precautions, surgical precautions, pain management, fall prevention strategies, home safety, functional activity and home exercise program. Education methods include: verbal cues and written instructions. Further education required to improve knowledge and compliance with orthopedic condition management, weight bearing precautions, surgical precautions, pain management, fall prevention strategies, home safety, functional activity and home exercise program. documented in this encounter [facility] home Plan of care note* Visit Details Visit Type -PT ROUTINE Discipline -Physical Therapy Problems Problem Description Start Date Status Goals Interve ntions Sepsis Disciplines: Skilled Services 02/06/2024 Active 1 goal linked to scheduled/documen elizabeth intervention 1 goal intervention scheduled/document ed in this visit Physician Specific Parameters Disciplines: Skilled Services 02/06/2024 Active 1 goal linked to scheduled/documen elizabeth intervention 1 goal intervention scheduled/document ed in this visit Risk for Falls Disciplines: Skilled Services 02/06/2024 Active 1 goal linked to scheduled/documen elizabeth intervention 1 goal intervention scheduled/document ed in this visit Pain Disciplines: Skilled Services 02/06/2024 Active 1 goal linked to scheduled/documen elizabeth intervention 1 goal intervention scheduled/document ed in this visit PT Impaired muscle performance and/or ROM Disciplines: PT 02/06/2024 Active 1 goal linked to scheduled/documen elizabeth intervention 1 goal intervention scheduled/document ed in this visit PT Impaired mobility Disciplines: PT 02/06/2024 Active 1 goal linked to scheduled/documen elizabeth intervention 1 goal intervention scheduled/document ed in this visit PT Impaired gait Disciplines: PT 02/06/2024 Active 1 goal linked to scheduled/documen elizabeth intervention 1 goal intervention scheduled/document ed in this visit PT Orthopedic Condition Disciplines: PT 02/06/2024 Active 1 goal linked to scheduled/documen elizabeth intervention 3 goal interventions scheduled/document ed in this visit PT Learning Assessment Disciplines: PT 02/06/2024 Active 1 goal linked to scheduled/documen elizabeth intervention 1 goal intervention scheduled/document ed in this visit PT Cardiovascular Disease Disciplines: PT 02/06/2024 Active 1 goal linked to scheduled/documen elizabeth intervention 1 goal intervention scheduled/document ed in this visit Goals Goal Associated Problem Outcome Goal Met? Visit Notes Patient/caregiver will be able to identify and report symptoms of sepsis Description: Patient/caregiver will be able to identify signs/symptoms of sepsis infection and will verbalize actions to take if suspected by 04/05/24 Sepsis No Patient to maintain parameters within physician-specified ranges throughout certification period Physician Specific Parameters No Manage Risk for falls Description: Patient/caregiver will verbalize knowledge of individualized fall prevention strategies by 04/05/24 Risk for Falls No Manage Pain Description: Patient/caregiver will verbalize knowledge and understanding of appropriate techniques to control pain, including pain medication and non-pharmacological techniques. Patient will verbalize or demonstrate an acceptable level of pain as evidenced by a pain score of 6/10 and improvement in ability to perform activities of daily living to be achieved by 04/05/24 Pain No Improved Muscle Performance and/or ROM Description: LTG: Patient and/or caregiver will verbalize/demonstrate independence with home exercise program, to improve functional mobility, to be achieved by 02/26/24. PT Impaired muscle performance and/or ROM No Improved Transfers Description: STG: Patient will demonstrate safe transfers to/from bed, chair and toilet independently, to be achieved by 02/19/24 LTG: Patient will demonstrate safe transfers to/from shower/tub independently, to be achieved by 02/26/24. PT Impaired mobility No Improved Gait Description: LTG: Patient will demonstrate improved gait ability as evidenced by ambulation 150 feet with single point cane independently with AD, to return to safe household and community ambulation, in order to attend medical appointments, to be achieved by 02/26/24 PT Impaired gait No Manage Orthopedic Condition Description: Improve patient and/or caregiver understanding of post surgical and/or non-surgical orthopedic intervention management as evidenced by patient and/or caregiver able to verbalize, demonstrate, and teach back instruction, to be achieved by 02/26/24. PT Orthopedic Condition No Demonstrate understanding of education Description: Patient and/or caregiver will understand educational instruction to be achieved by 02/26/24 PT Learning Assessment No Manage Secondary Cardiovascular disease Description: Improve patient and/or caregiver understanding of secondary cardiovascular disease management as evidenced by patient and/or caregiver able to verbalize, demonstrate, and teach back instruction, to be achieved by 02/26/24 PT Cardiovascular Disease No Interventions Intervention Associated Problem/Goal Status Variance Visit Notes Risk of Sepsis Description: Patient is at risk for sepsis. Monitor closely for s/s of sepsis. Problem:Sepsis Goal:Patient/caregive r will be able to identify and report symptoms of sepsis Completed SPO2 Description: Notify Dr. Bradley if pulse ox is <92% at rest. Problem:Physician Specific Parameters Goal:Patient to maintain parameters within physician-specified ranges throughout certification period Completed Instruct on individual fall risk factors and strategies to prevent falls and injuries caused by falls. Problem:Risk for Falls Goal:Manage Risk for falls Completed PT: Patient instructed on Eliminating Environmental Hazards: Keep pathways clear, Keep pets out of pathways, Remove unsafe rugs, Move furniture from pathways and Wear supportive shoes or non-skid socks Managing Impaired Functional Mobility: Use assistive device(s): front wheeled walker Managing Pain Instruct on pain and instruct on strategies to control pain Problem:Pain Goal:Manage Pain Completed patient instructed on techniques to control pain including Pharmacological measures and Non-Pharmacological measures; rest, positioning/elevation and use of thermal modalities, apply ice to affected area. Physical Therapy Therapeutic Exercises Problem:PT Impaired muscle performance and/or ROM Goal:Improved Muscle Performance and/or ROM Completed patient instructed on strengthening and range of motion exercises including Supine : GS,QS, HIPADD, HIP ABD, HEEL SLIDES, SAQ, X 10 supin epassive knee ext x 5 min with tactile, written and verbal cues for technique . patient instructed to perform home exercise program twice a day which included hourly ambulation. Physical Therapy Transfer Training Problem:PT Impaired mobility Goal:Improved Transfers Completed Transfer training and instruction to patient on safe transfers to and from couch with contact guard assist and verbal cues for technique . Physical Therapy Gait Training Problem:PT Impaired gait Goal:Improved Gait Completed Gait training and instruction to patient on safe ambulation with front wheeled walker for 40' x 2 feet with supervision, with verbal cues for corrections of gait deviations including - pt using step together sequencing and sliding the RLE forward . Instruct on orthopedic precautions and weight bearing restrictions Description: Orthopedic precautions including left total knee: no crossing legs, no knee flexed over pillow at rest, no kneeling, no squatting and no twisting. Weight bearing restrictions include: WBAT of involved extremity. Problem:PT Orthopedic Condition Goal:Manage Orthopedic Condition Completed patient instructed on orthopedic precautions and weight bearing restrictions. Instruct on management of edema Problem:PT Orthopedic Condition Goal:Manage Orthopedic Condition Completed Instruct patient on management of edema including elevation of LLE above the level of the heart and ice. Instruct on self-management of post surgical and/or non-surgical orthopedic intervention Problem:PT Orthopedic Condition Goal:Manage Orthopedic Condition Completed patient instructed on managagement of orthopedic condition, staying well hydrated, eating foods with high protein, signs and symptoms of infection, signs and symptoms of DVT/PE and instructed on when to call provider. Instruct and educate on knowledge deficits Problem:PT Learning Assessment Goal:Demonstrate understanding of education Completed patient verbalize and/or demonstrate understanding of physical therapy education including orthopedic condition management, surgical precautions, pain management, fall prevention strategies, home safety, functional activity and home exercise program. Education methods include: verbal cues and written instructions. Further education required to improve knowledge and compliance with fall prevention strategies, home safety, functional activity and home exercise program. Instruct on signs, symptoms, and management of secondary cardiovascular disease Problem:PT Cardiovascular Disease Goal:Manage Secondary Cardiovascular disease Completed Instructed patient on blood pressure tracking. documented in this encounter [facility] home Plan of care note* Visit Details Visit Type -AIR SEALING TECHNICIAN ROUTINE Discipline -Physical Therapy Problems Problem Description Start Date Status Goals Interve ntions Medication Education Disciplines: Skilled Services 02/06/2024 Active 1 goal linked to scheduled/document ed intervention 1 goal intervention scheduled/document ed in this visit Sepsis Disciplines: Skilled Services 02/06/2024 Active 1 goal linked to scheduled/document ed intervention 1 goal intervention scheduled/document ed in this visit Physician Specific Parameters Disciplines: Skilled Services 02/06/2024 Active 1 goal linked to scheduled/document ed intervention 1 goal intervention scheduled/document ed in this visit Risk for Falls Disciplines: Skilled Services 02/06/2024 Active 1 goal linked to scheduled/document ed intervention 1 goal intervention scheduled/document ed in this visit Pain Disciplines: Skilled Services 02/06/2024 Active 1 goal linked to scheduled/document ed intervention 1 goal intervention scheduled/document ed in this visit High Risk Medications Disciplines: Skilled Services 02/06/2024 Active 1 goal linked to scheduled/document ed intervention 1 goal intervention scheduled/document ed in this visit Discharge Disciplines: Skilled Services 02/06/2024 Active 1 goal linked to scheduled/document ed intervention 1 goal intervention scheduled/document ed in this visit PT Impaired muscle performance and/or ROM Disciplines: PT 02/06/2024 Active 1 goal linked to scheduled/document ed intervention 1 goal intervention scheduled/document ed in this visit PT Impaired mobility Disciplines: PT 02/06/2024 Active 1 goal linked to scheduled/document ed intervention 1 goal intervention scheduled/document ed in this visit PT Impaired gait Disciplines: PT 02/06/2024 Active 2 goals linked to scheduled/document ed interventions 2 goal interventions scheduled/document ed in this visit PT Orthopedic Condition Disciplines: PT 02/06/2024 Active 1 goal linked to scheduled/document ed intervention 3 goal interventions scheduled/document ed in this visit PT Learning Assessment Disciplines: PT 02/06/2024 Active 1 goal linked to scheduled/document ed intervention 1 goal intervention scheduled/document ed in this visit Goals Goal Associated Problem Outcome Goal Met? Visit Notes Patient/caregiver will demonstrate ability to obtain, store, identify and administer ordered medications, keep accurate medication list in home, and adhere to medication schedule Description: Patient/caregiver will demonstrate ability to obtain, store, identify and administer ordered medications, keep accurate medication list in home, and adhere to medication schedule by 04/05/24 Medication Education No Patient/caregiver will be able to identify and report symptoms of sepsis Description: Patient/caregiver will be able to identify signs/symptoms of sepsis infection and will verbalize actions to take if suspected by 04/05/24 Sepsis No Patient to maintain parameters within physician-specified ranges throughout certification period Physician Specific Parameters No Manage Risk for falls Description: Patient/caregiver will verbalize knowledge of individualized fall prevention strategies by 04/05/24 Risk for Falls No Manage Pain Description: Patient/caregiver will verbalize knowledge and understanding of appropriate techniques to control pain, including pain medication and non-pharmacological techniques. Patient will verbalize or demonstrate an acceptable level of pain as evidenced by a pain score of 6/10 and improvement in ability to perform activities of daily living to be achieved by 04/05/24 Pain No Patient/caregiver will teach back high risk medication side effect and precaution education Description: STG Patient/caregiver will verbalize understanding of high risk medication side effects and precautions to be achieved by 02/06/24 LTG Patient/caregiver will continue to verbalize understanding of high risk medication side effects and precautions throughout certification period. High Risk Medications No Manage discharge planning Description: Patient/caregiver will verbalize understanding of ongoing discharge plan provided related to disease management, arrangements for outpatient and/or community services, obtaining medications, supplies, and DME, as needed throughout certification period. Discharge No Improved Muscle Performance and/or ROM Description: LTG: Patient and/or caregiver will verbalize/demonstrate independence with home exercise program, to improve functional mobility, to be achieved by 02/26/24. PT Impaired muscle performance and/or ROM No Improved Transfers Description: STG: Patient will demonstrate safe transfers to/from bed, chair and toilet independently, to be achieved by 02/19/24 LTG: Patient will demonstrate safe transfers to/from shower/tub independently, to be achieved by 02/26/24. PT Impaired mobility No Improved Stair Climbing Description: LTG: Patient will demonstrate improved stair negotiation as evidenced by ascend/descend 7/3 steps with railing and with cane independently, to safely access all areas of the home and exit home, to be achieved by 02/26/24. PT Impaired gait No Improved Gait Description: LTG: Patient will demonstrate improved gait ability as evidenced by ambulation 150 feet with single point cane independently with AD, to return to safe household and community ambulation, in order to attend medical appointments, to be achieved by 02/26/24 PT Impaired gait No Manage Orthopedic Condition Description: Improve patient and/or caregiver understanding of post surgical and/or non-surgical orthopedic intervention management as evidenced by patient and/or caregiver able to verbalize, demonstrate, and teach back instruction, to be achieved by 02/26/24. PT Orthopedic Condition No Demonstrate understanding of education Description: Patient and/or caregiver will understand educational instruction to be achieved by 02/26/24 PT Learning Assessment No Interventions Intervention Associated Problem/Goal Status Variance Visit Notes Medication Education Description: Evaluate/instruct patient/caregiver on obtaining, storing, identifying and administering ordered medications as well as keeping accurate medication list in the home and adhereing to medication schedule Problem:Medication Education Goal:Patient/caregive r will demonstrate ability to obtain, store, identify and administer ordered medications, keep accurate medication list in home, and adhere to medication schedule Completed Patient instructed on importance of keeping accurate medication list in home and adhering to medication schedule. Risk of Sepsis Description: Patient is at risk for sepsis. Monitor closely for s/s of sepsis. Problem:Sepsis Goal:Patient/caregive r will be able to identify and report symptoms of sepsis Completed SPO2 Description: Notify Dr. Bradley if pulse ox is <92% at rest. Problem:Physician Specific Parameters Goal:Patient to maintain parameters within physician-specified ranges throughout certification period Completed Instruct on individual fall risk factors and strategies to prevent falls and injuries caused by falls. Problem:Risk for Falls Goal:Manage Risk for falls Completed PT: Patient instructed on Managing Impaired Functional Mobility: Use assistive device(s): front wheeled walker Managing Pain Instruct on pain and instruct on strategies to control pain Problem:Pain Goal:Manage Pain Completed patient instructed on techniques to control pain including Pharmacological measures and Non-Pharmacological measures; positioning/elevation and use of thermal modalities, apply ice to affected area for the following prescribed frequency: prn. Opioids- educated on high risk medication Problem:High Risk Medications Goal:Patient/caregive r will teach back high risk medication side effect and precaution education Completed patient educated on taking medication(s) as prescribed by provider. Do not stop medication or alter doses without speaking with your provider. Discuss medication effectiveness or side effect concerns with your provider and home care team. Only take opioids as prescribed, do not share your medications, and take proper precautions in storing and properly disposing of opioids once no longer needed. Possible side effects of opioid medication including sedation, decreased rate of breathing, and constipation. Report over sedation to prescribing provider and practice deep breathing techniques every hour while awake. Prevent constipation by increasing water and fiber intake, increasing activity as tolerated, and use stool softener(s) as prescribed. Instruct on ongoing discharge plan Problem:Discharge Goal:Manage discharge planning Completed Ongoing Discharge plan: Discharge plan discussed with patient including frequency and duration for home PT and plan for transition to: outpatient therapy. Physical Therapy Therapeutic Exercises Problem:PT Impaired muscle performance and/or ROM Goal:Improved Muscle Performance and/or ROM Completed patient instructed on strengthening and range of motion exercises including ankle pumps, quad and glut sets, hip abd and add, saq and heel slides x's 10, supine ext hang x;5min. seated heel slides x's 10 with visual, written and verbal cues for form and hold times. patient instructed to perform home exercise program twice a day which included above ex. Physical Therapy Transfer Training Problem:PT Impaired mobility Goal:Improved Transfers Completed Transfer training and instruction to patient on safe transfers to and from couch with supervision and verbal cues for safety. Physical Therapy Stair Training Problem:PT Impaired gait Goal:Improved Stair Climbing Completed Stair training and instruction to patient on safe stair climbing, ascend/descend 5 steps, with railing and with wall with stand by assist and verbal cues for safety. Physical Therapy Gait Training Problem:PT Impaired gait Goal:Improved Gait Completed Gait training and instruction to patient on safe ambulation with front wheeled walker for 50 and 2x's 20 feet with stand by assist, with visual and verbal cues for corrections of gait deviations including heel to toe pattern, increased step length. Instruct on orthopedic precautions and weight bearing restrictions Description: Orthopedic precautions including left total knee: no crossing legs, no knee flexed over pillow at rest, no kneeling, no squatting and no twisting. Weight bearing restrictions include: WBAT of involved extremity. Problem:PT Orthopedic Condition Goal:Manage Orthopedic Condition Completed patient instructed on orthopedic precautions. Instruct on management of edema Problem:PT Orthopedic Condition Goal:Manage Orthopedic Condition Completed Instruct patient on management of edema including elevation of LLE above the level of the heart and ice. Instruct on self-management of post surgical and/or non-surgical orthopedic intervention Problem:PT Orthopedic Condition Goal:Manage Orthopedic Condition Completed patient instructed on signs and symptoms of infection, signs and symptoms of DVT/PE, instructed on when to call provider and instructed on when to call 911. Instruct and educate on knowledge deficits Problem:PT Learning Assessment Goal:Demonstrate understanding of education Completed patient verbalize and/or demonstrate understanding of physical therapy education including pain management and home exercise program. Education methods include: verbal cues. Further education required to improve knowledge and compliance with home exercise program. [facility] Visit Details Visit Type -PT ROUTINE Discipline -Physical Therapy Problems Problem Description Start Date Status Goals Interve ntions Sepsis Disciplines: Skilled Services 02/06/2024 Active 1 goal linked to scheduled/document ed intervention 1 goal intervention scheduled/document ed in this visit Physician Specific Parameters Disciplines: Skilled Services 02/06/2024 Active 1 goal linked to scheduled/document ed intervention 1 goal intervention scheduled/document ed in this visit Risk for Falls Disciplines: Skilled Services 02/06/2024 Active 1 goal linked to scheduled/document ed intervention 1 goal intervention scheduled/document ed in this visit Pain Disciplines: Skilled Services 02/06/2024 Active 1 goal linked to scheduled/document ed intervention 1 goal intervention scheduled/document ed in this visit Discharge Disciplines: Skilled Services 02/06/2024 Active 1 goal linked to scheduled/document ed intervention 1 goal intervention scheduled/document ed in this visit PT Impaired muscle performance and/or ROM Disciplines: PT 02/06/2024 Active 1 goal linked to scheduled/document ed intervention 1 goal intervention scheduled/document ed in this visit PT Impaired mobility Disciplines: PT 02/06/2024 Active 1 goal linked to scheduled/document ed intervention 1 goal intervention scheduled/document ed in this visit PT Impaired gait Disciplines: PT 02/06/2024 Active 1 goal linked to scheduled/document ed intervention 1 goal intervention scheduled/document ed in this visit PT Orthopedic Condition Disciplines: PT 02/06/2024 Active 1 goal linked to scheduled/document ed intervention 3 goal interventions scheduled/document ed in this visit PT Learning Assessment Disciplines: PT 02/06/2024 Active 1 goal linked to scheduled/document ed intervention 1 goal intervention scheduled/document ed in this visit Goals Goal Associated Problem Outcome Goal Met? Visit Notes Patient/caregiver will be able to identify and report symptoms of sepsis Description: Patient/caregiver will be able to identify signs/symptoms of sepsis infection and will verbalize actions to take if suspected by 04/05/24 Sepsis No Patient to maintain parameters within physician-specified ranges throughout certification period Physician Specific Parameters No Manage Risk for falls Description: Patient/caregiver will verbalize knowledge of individualized fall prevention strategies by 04/05/24 Risk for Falls No Manage Pain Description: Patient/caregiver will verbalize knowledge and understanding of appropriate techniques to control pain, including pain medication and non-pharmacological techniques. Patient will verbalize or demonstrate an acceptable level of pain as evidenced by a pain score of 6/10 and improvement in ability to perform activities of daily living to be achieved by 04/05/24 Pain No Manage discharge planning Description: Patient/caregiver will verbalize understanding of ongoing discharge plan provided related to disease management, arrangements for outpatient and/or community services, obtaining medications, supplies, and DME, as needed throughout certification period. Discharge No Improved Muscle Performance and/or ROM Description: LTG: Patient and/or caregiver will verbalize/demonstrate independence with home exercise program, to improve functional mobility, to be achieved by 02/26/24. PT Impaired muscle performance and/or ROM No Improved Transfers Description: STG: Patient will demonstrate safe transfers to/from bed, chair and toilet independently, to be achieved by 02/19/24 LTG: Patient will demonstrate safe transfers to/from shower/tub independently, to be achieved by 02/26/24. PT Impaired mobility No Improved Gait Description: LTG: Patient will demonstrate improved gait ability as evidenced by ambulation 150 feet with single point cane independently with AD, to return to safe household and community ambulation, in order to attend medical appointments, to be achieved by 02/26/24 PT Impaired gait No Manage Orthopedic Condition Description: Improve patient and/or caregiver understanding of post surgical and/or non-surgical orthopedic intervention management as evidenced by patient and/or caregiver able to verbalize, demonstrate, and teach back instruction, to be achieved by 02/26/24. PT Orthopedic Condition No Demonstrate understanding of education Description: Patient and/or caregiver will understand educational instruction to be achieved by 02/26/24 PT Learning Assessment No Interventions Intervention Associated Problem/Goal Status Variance Visit Notes Risk of Sepsis Description: Patient is at risk for sepsis. Monitor closely for s/s of sepsis. Problem:Sepsis Goal:Patient/caregive r will be able to identify and report symptoms of sepsis Completed SPO2 Description: Notify Dr. Bradley if pulse ox is <92% at rest. Problem:Physician Specific Parameters Goal:Patient to maintain parameters within physician-specified ranges throughout certification period Completed Instruct on individual fall risk factors and strategies to prevent falls and injuries caused by falls. Problem:Risk for Falls Goal:Manage Risk for falls Completed PT: Patient instructed on Eliminating Environmental Hazards: Keep pathways clear, Keep pets out of pathways, Remove unsafe rugs, Move furniture from pathways, Keep rooms and walkways well lit and Wear supportive shoes or non-skid socks Managing Impaired Functional Mobility: Use assistive device(s): front wheeled walker Managing Pain Instruct on pain and instruct on strategies to control pain Problem:Pain Goal:Manage Pain Completed patient instructed on techniques to control pain including Pharmacological measures and Non-Pharmacological measures; rest, positioning/elevation and use of thermal modalities, apply ice to affected area . Instruct on ongoing discharge plan Problem:Discharge Goal:Manage discharge planning Completed Ongoing Discharge plan: Discharge plan discussed with patient including frequency and duration for home PT and plan for transition to: outpatient therapy. Physical Therapy Therapeutic Exercises Problem:PT Impaired muscle performance and/or ROM Goal:Improved Muscle Performance and/or ROM Completed patient instructed on strengthening and range of motion exercises including ankle pumps, quad and glut sets, hip abd and add, saq and heel slides x's 10, supine ext hang x;5min. seated heel slides x's 10 with visual, written and verbal cues for form and hold times. patient instructed to perform home exercise program twice a day which included above ex. seated knee flexion to 87 Physical Therapy Transfer Training Problem:PT Impaired mobility Goal:Improved Transfers Completed Transfer training and instruction to patient on safe transfers to and from chair and couch with supervision and tactile, visual and verbal cues for technique . { Physical Therapy Gait Training Problem:PT Impaired gait Goal:Improved Gait Completed Gait training and instruction to patient on safe ambulation with front wheeled walker for 50 and 2x's 20 feet with stand by assist, with visual and verbal cues for corrections of gait deviations including heel to toe pattern, increased step length.Pt still wanting to slide the R foot forward. Focused instruction on putting wt on nirali LLe and stepping forward with the R Instruct on orthopedic precautions and weight bearing restrictions Description: Orthopedic precautions including left total knee: no crossing legs, no knee flexed over pillow at rest, no kneeling, no squatting and no twisting. Weight bearing restrictions include: WBAT of involved extremity. Problem:PT Orthopedic Condition Goal:Manage Orthopedic Condition Completed patient instructed on orthopedic precautions. Instruct on management of edema Problem:PT Orthopedic Condition Goal:Manage Orthopedic Condition Completed Instruct patient on management of edema including elevation of LLE above the level of the heart and ice. Instruct on self-management of post surgical and/or non-surgical orthopedic intervention Problem:PT Orthopedic Condition Goal:Manage Orthopedic Condition Completed patient instructed on managagement of orthopedic condition, staying well hydrated, eating foods with high protein, signs and symptoms of infection, signs and symptoms of DVT/PE and instructed on when to call provider. Instruct and educate on knowledge deficits Problem:PT Learning Assessment Goal:Demonstrate understanding of education Completed patient verbalize and/or demonstrate understanding of physical therapy education including orthopedic condition management, weight bearing precautions, surgical precautions, pain management, fall prevention strategies, home safety, functional activity and home exercise program. Education methods include: verbal cues and written instructions. Further education required to improve knowledge and compliance with orthopedic condition management, weight bearing precautions, surgical precautions, pain management, fall prevention strategies, home safety, functional activity and home exercise program. documented in this encounter [facility] home Plan of care note* Visit Details Visit Type -PT ROUTINE Discipline -Physical Therapy Problems Problem Description Start Date Status Goals Interve ntions Sepsis Disciplines: Skilled Services 02/06/2024 Active 1 goal linked to scheduled/document ed intervention 1 goal intervention scheduled/document ed in this visit Physician Specific Parameters Disciplines: Skilled Services 02/06/2024 Active 1 goal linked to scheduled/document ed intervention 1 goal intervention scheduled/document ed in this visit Risk for Falls Disciplines: Skilled Services 02/06/2024 Active 1 goal linked to scheduled/document ed intervention 1 goal intervention scheduled/document ed in this visit Pain Disciplines: Skilled Services 02/06/2024 Active 1 goal linked to scheduled/document ed intervention 1 goal intervention scheduled/document ed in this visit PT Impaired muscle performance and/or ROM Disciplines: PT 02/06/2024 Active 1 goal linked to scheduled/document ed intervention 1 goal intervention scheduled/document ed in this visit PT Impaired mobility Disciplines: PT 02/06/2024 Active 1 goal linked to scheduled/document ed intervention 1 goal intervention scheduled/document ed in this visit PT Impaired gait Disciplines: PT 02/06/2024 Active 2 goals linked to scheduled/document ed interventions 2 goal interventions scheduled/document ed in this visit PT Orthopedic Condition Disciplines: PT 02/06/2024 Active 1 goal linked to scheduled/document ed intervention 3 goal interventions scheduled/document ed in this visit PT Learning Assessment Disciplines: PT 02/06/2024 Active 1 goal linked to scheduled/document ed intervention 1 goal intervention scheduled/document ed in this visit Goals Goal Associated Problem Outcome Goal Met? Visit Notes Patient/caregiver will be able to identify and report symptoms of sepsis Description: Patient/caregiver will be able to identify signs/symptoms of sepsis infection and will verbalize actions to take if suspected by 04/05/24 Sepsis No Patient to maintain parameters within physician-specified ranges throughout certification period Physician Specific Parameters No Manage Risk for falls Description: Patient/caregiver will verbalize knowledge of individualized fall prevention strategies by 04/05/24 Risk for Falls No Manage Pain Description: Patient/caregiver will verbalize knowledge and understanding of appropriate techniques to control pain, including pain medication and non-pharmacological techniques. Patient will verbalize or demonstrate an acceptable level of pain as evidenced by a pain score of 6/10 and improvement in ability to perform activities of daily living to be achieved by 04/05/24 Pain No Improved Muscle Performance and/or ROM Description: LTG: Patient and/or caregiver will verbalize/demonstrate independence with home exercise program, to improve functional mobility, to be achieved by 02/26/24. PT Impaired muscle performance and/or ROM No Improved Transfers Description: STG: Patient will demonstrate safe transfers to/from bed, chair and toilet independently, to be achieved by 02/19/24 LTG: Patient will demonstrate safe transfers to/from shower/tub independently, to be achieved by 02/26/24. PT Impaired mobility No Improved Stair Climbing Description: LTG: Patient will demonstrate improved stair negotiation as evidenced by ascend/descend 7/3 steps with railing and with cane independently, to safely access all areas of the home and exit home, to be achieved by 02/26/24. PT Impaired gait No Improved Gait Description: LTG: Patient will demonstrate improved gait ability as evidenced by ambulation 150 feet with single point cane independently with AD, to return to safe household and community ambulation, in order to attend medical appointments, to be achieved by 02/26/24 PT Impaired gait No Manage Orthopedic Condition Description: Improve patient and/or caregiver understanding of post surgical and/or non-surgical orthopedic intervention management as evidenced by patient and/or caregiver able to verbalize, demonstrate, and teach back instruction, to be achieved by 02/26/24. PT Orthopedic Condition No Demonstrate understanding of education Description: Patient and/or caregiver will understand educational instruction to be achieved by 02/26/24 PT Learning Assessment No Interventions Intervention Associated Problem/Goal Status Variance Visit Notes Risk of Sepsis Description: Patient is at risk for sepsis. Monitor closely for s/s of sepsis. Problem:Sepsis Goal:Patient/caregiver will be able to identify and report symptoms of sepsis Completed SPO2 Description: Notify Dr. Bradley if pulse ox is <92% at rest. Problem:Physician Specific Parameters Goal:Patient to maintain parameters within physician-specified ranges throughout certification period Completed Instruct on individual fall risk factors and strategies to prevent falls and injuries caused by falls. Problem:Risk for Falls Goal:Manage Risk for falls Completed PT: Patient instructed on Eliminating Environmental Hazards: Keep pathways clear, Keep pets out of pathways, Remove unsafe rugs, Move furniture from pathways and Wear supportive shoes or non-skid socks Managing Impaired Functional Mobility: Use assistive device(s): front wheeled walker Managing Pain Instruct on pain and instruct on strategies to control pain Problem:Pain Goal:Manage Pain Completed patient instructed on techniques to control pain including Non-Pharmacological measures; rest, positioning/elevation and use of thermal modalities, apply ice to affected area . Physical Therapy Therapeutic Exercises Problem:PT Impaired muscle performance and/or ROM Goal:Improved Muscle Performance and/or ROM Completed patient instructed on strengthening and range of motion exercises including ankle pumps, quad and glut sets, hip abd and add, saq and heel slides x's 10, supine ext hang x;5min. seated heel slides x's 10 with visual, written and verbal cues for form and hold times. patient instructed to perform home exercise program twice a day which included above ex. seated knee flexion - A-90 P 100 Physical Therapy Transfer Training Problem:PT Impaired mobility Goal:Improved Transfers Completed Transfer training and instruction to patient on safe transfers to and from chair and couch with supervision and verbal cues for technqiue . Physical Therapy Stair Training Problem:PT Impaired gait Goal:Improved Stair Climbing Completed Stair training and instruction to patient on safe stair climbing, ascend/descend 6 steps, with railing with supervision and verbal cues for technique pt using 2 hands on one rail and stepping sideways . Physical Therapy Gait Training Problem:PT Impaired gait Goal:Improved Gait Completed Gait training and instruction to patient on safe ambulation with front wheeled walker for 50' and 2x's 20 feet with stand by assist, with visual and verbal cues for corrections of gait deviations including heel to toe pattern, increased step length.Pt starting to initiate a recip pattern Instruct on orthopedic precautions and weight bearing restrictions Description: Orthopedic precautions including left total knee: no crossing legs, no knee flexed over pillow at rest, no kneeling, no squatting and no twisting. Weight bearing restrictions include: WBAT of involved extremity. Problem:PT Orthopedic Condition Goal:Manage Orthopedic Condition Completed patient instructed on orthopedic precautions. Instruct on management of edema Problem:PT Orthopedic Condition Goal:Manage Orthopedic Condition Completed Instruct patient on management of edema including elevation of LLE above the level of the heart and ice. Instruct on self-management of post surgical and/or non-surgical orthopedic intervention Problem:PT Orthopedic Condition Goal:Manage Orthopedic Condition Completed patient instructed on managagement of orthopedic condition, measures to avoid skin breakdown, staying well hydrated, eating foods with high protein, signs and symptoms of infection, signs and symptoms of DVT/PE and instructed on when to call provider. Instruct and educate on knowledge deficits Problem:PT Learning Assessment Goal:Demonstrate understanding of education Completed patient verbalize and/or demonstrate understanding of physical therapy education including orthopedic condition management, surgical precautions, pain management, fall prevention strategies, home safety, functional activity and home exercise program. Education methods include: verbal cues. Further education required to improve knowledge and compliance with orthopedic condition management, surgical precautions, pain management, fall prevention strategies, home safety, functional activity and home exercise program. 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 TECHNICIAN ROUTINE Discipline -Physical Therapy Problems Problem Description Start Date Status Goals Interve ntions Medication Education Disciplines: Skilled Services 02/06/2024 Active 1 goal linked to scheduled/documen elizabeth intervention 1 goal intervention scheduled/document ed in this visit Sepsis Disciplines: Skilled Services 02/06/2024 Active 1 goal linked to scheduled/documen elizabeth intervention 1 goal intervention scheduled/document ed in this visit Physician Specific Parameters Disciplines: Skilled Services 02/06/2024 Active 1 goal linked to scheduled/documen elizabeth intervention 1 goal intervention scheduled/document ed in this visit Risk for Falls Disciplines: Skilled Services 02/06/2024 Active 1 goal linked to scheduled/documen elizabeth intervention 1 goal intervention scheduled/document ed in this visit Pain Disciplines: Skilled Services 02/06/2024 Active 1 goal linked to scheduled/documen elizabeth intervention 1 goal intervention scheduled/document ed in this visit Discharge Disciplines: Skilled Services 02/06/2024 Active 1 goal linked to scheduled/documen elizabeth intervention 1 goal intervention scheduled/document ed in this visit PT Impaired muscle performance and/or ROM Disciplines: PT 02/06/2024 Active 1 goal linked to scheduled/documen elizabeth intervention 1 goal intervention scheduled/document ed in this visit PT Impaired gait Disciplines: PT 02/06/2024 Active 1 goal linked to scheduled/documen elizabeth intervention 1 goal intervention scheduled/document ed in this visit PT Impaired balance Disciplines: PT 02/06/2024 Active 1 goal linked to scheduled/documen elizabeth intervention 1 goal intervention scheduled/document ed in this visit PT Orthopedic Condition Disciplines: PT 02/06/2024 Active 1 goal linked to scheduled/documen elizabeth intervention 3 goal interventions scheduled/document ed in this visit PT Learning Assessment Disciplines: PT 02/06/2024 Active 1 goal linked to scheduled/documen elizabeth intervention 1 goal intervention scheduled/document ed in this visit PT Cardiovascular Disease Disciplines: PT 02/06/2024 Active 1 goal linked to scheduled/documen elizabeth intervention 1 goal intervention scheduled/document ed in this visit Goals Goal Associated Problem Outcome Goal Met? Visit Notes Patient/caregiver will demonstrate ability to obtain, store, identify and administer ordered medications, keep accurate medication list in home, and adhere to medication schedule Description: Patient/caregiver will demonstrate ability to obtain, store, identify and administer ordered medications, keep accurate medication list in home, and adhere to medication schedule by 04/05/24 Medication Education No Patient/caregiver will be able to identify and report symptoms of sepsis Description: Patient/caregiver will be able to identify signs/symptoms of sepsis infection and will verbalize actions to take if suspected by 04/05/24 Sepsis No Patient to maintain parameters within physician-specified ranges throughout certification period Physician Specific Parameters No Manage Risk for falls Description: Patient/caregiver will verbalize knowledge of individualized fall prevention strategies by 04/05/24 Risk for Falls No Manage Pain Description: Patient/caregiver will verbalize knowledge and understanding of appropriate techniques to control pain, including pain medication and non-pharmacological techniques. Patient will verbalize or demonstrate an acceptable level of pain as evidenced by a pain score of 6/10 and improvement in ability to perform activities of daily living to be achieved by 04/05/24 Pain No Manage discharge planning Description: Patient/caregiver will verbalize understanding of ongoing discharge plan provided related to disease management, arrangements for outpatient and/or community services, obtaining medications, supplies, and DME, as needed throughout certification period. Discharge No Improved Muscle Performance and/or ROM Description: LTG: Patient and/or caregiver will verbalize/demonstrate independence with home exercise program, to improve functional mobility, to be achieved by 02/26/24. PT Impaired muscle performance and/or ROM No Improved Gait Description: LTG: Patient will demonstrate improved gait ability as evidenced by ambulation 150 feet with single point cane independently with AD, to return to safe household and community ambulation, in order to attend medical appointments, to be achieved by 02/26/24 PT Impaired gait No Improved Balance Description: LTG: Patient will demonstrate improved standing balance to meet functional goals as evidenced by no falls during cert period to be achieved by 02/26/24 PT Impaired balance No Manage Orthopedic Condition Description: Improve patient and/or caregiver understanding of post surgical and/or non-surgical orthopedic intervention management as evidenced by patient and/or caregiver able to verbalize, demonstrate, and teach back instruction, to be achieved by 02/26/24. PT Orthopedic Condition No Demonstrate understanding of education Description: Patient and/or caregiver will understand educational instruction to be achieved by 02/26/24 PT Learning Assessment No Manage Secondary Cardiovascular disease Description: Improve patient and/or caregiver understanding of secondary cardiovascular disease management as evidenced by patient and/or caregiver able to verbalize, demonstrate, and teach back instruction, to be achieved by 02/26/24 PT Cardiovascular Disease No Interventions Intervention Associated Problem/Goal Status Variance Visit Notes Medication Education Description: Evaluate/instruct patient/caregiver on obtaining, storing, identifying and administering ordered medications as well as keeping accurate medication list in the home and adhereing to medication schedule Problem:Medication Education Goal:Patient/caregive r will demonstrate ability to obtain, store, identify and administer ordered medications, keep accurate medication list in home, and adhere to medication schedule Completed Patient instructed on importance of keeping accurate medication list in home. Risk of Sepsis Description: Patient is at risk for sepsis. Monitor closely for s/s of sepsis. Problem:Sepsis Goal:Patient/caregive r will be able to identify and report symptoms of sepsis Completed SPO2 Description: Notify Dr. Bradley if pulse ox is <92% at rest. Problem:Physician Specific Parameters Goal:Patient to maintain parameters within physician-specified ranges throughout certification period Completed Instruct on individual fall risk factors and strategies to prevent falls and injuries caused by falls. Problem:Risk for Falls Goal:Manage Risk for falls Completed PT: Patient instructed on Managing Impaired Functional Mobility: Use assistive device(s): front wheeled walker Managing Pain Instruct on pain and instruct on strategies to control pain Problem:Pain Goal:Manage Pain Completed patient instructed on techniques to control pain including Pharmacological measures and Non-Pharmacological measures; positioning/elevation and use of thermal modalities, apply ice to affected area for the following prescribed frequency: prn. Instruct on ongoing discharge plan Problem:Discharge Goal:Manage discharge planning Completed Ongoing Discharge plan: Discharge plan discussed with patient including frequency and duration for home PT and plan for transition to: outpatient therapy. Physical Therapy Therapeutic Exercises Problem:PT Impaired muscle performance and/or ROM Goal:Improved Muscle Performance and/or ROM Completed patient instructed on strengthening and range of motion exercises including ankle pumps, quad and glut sets, supine ext hang x's 5min standin gheel raises, hams curls and hip abd x's 10 each. seated heel slides and step flexion stretch x's 10 with visual, written and verbal cues for form and progressions. patient instructed to perform home exercise program twice a day which included above ex. Physical Therapy Gait Training Problem:PT Impaired gait Goal:Improved Gait Completed Gait training and instruction to patient on safe ambulation with front wheeled walker for 3x's 40 feet with supervision, with verbal cues for corrections of gait deviations including heel to toe pattern. Physical Therapy Balance Training Problem:PT Impaired balance Goal:Improved Balance Completed Developed, implemented, and instructed patient on standing balance exercises including standing ex. Instruct on orthopedic precautions and weight bearing restrictions Description: Orthopedic precautions including left total knee: no crossing legs, no knee flexed over pillow at rest, no kneeling, no squatting and no twisting. Weight bearing restrictions include: WBAT of involved extremity. Problem:PT Orthopedic Condition Goal:Manage Orthopedic Condition Completed patient instructed on orthopedic precautions. Instruct on management of edema Problem:PT Orthopedic Condition Goal:Manage Orthopedic Condition Completed Instruct patient on management of edema including elevation of LLE above the level of the heart and ice. Instruct on self-management of post surgical and/or non-surgical orthopedic intervention Problem:PT Orthopedic Condition Goal:Manage Orthopedic Condition Completed patient instructed on signs and symptoms of infection, signs and symptoms of DVT/PE, instructed on when to call provider and instructed on when to call 911. Instruct and educate on knowledge deficits Problem:PT Learning Assessment Goal:Demonstrate understanding of education Completed patient verbalize and/or demonstrate understanding of physical therapy education including home exercise program. Education methods include: verbal cues and visual cues. Further education required to improve knowledge and compliance with home exercise program. Instruct on signs, symptoms, and management of secondary cardiovascular disease Problem:PT Cardiovascular Disease Goal:Manage Secondary Cardiovascular disease Completed Instructed patient on instructed on when to call provider. 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 TECHNICIAN ROUTINE Discipline -Physical Therapy Problems Problem Description Start Date Status Goals Interve ntions Medication Education Disciplines: Skilled Services 02/06/2024 Active 1 goal linked to scheduled/document ed intervention 1 goal intervention scheduled/document ed in this visit Sepsis Disciplines: Skilled Services 02/06/2024 Active 1 goal linked to scheduled/document ed intervention 1 goal intervention scheduled/document ed in this visit Physician Specific Parameters Disciplines: Skilled Services 02/06/2024 Active 1 goal linked to scheduled/document ed intervention 1 goal intervention scheduled/document ed in this visit Risk for Falls Disciplines: Skilled Services 02/06/2024 Active 1 goal linked to scheduled/document ed intervention 1 goal intervention scheduled/document ed in this visit Pain Disciplines: Skilled Services 02/06/2024 Active 1 goal linked to scheduled/document ed intervention 1 goal intervention scheduled/document ed in this visit Discharge Disciplines: Skilled Services 02/06/2024 Active 1 goal linked to scheduled/document ed intervention 1 goal intervention scheduled/document ed in this visit PT Impaired muscle performance and/or ROM Disciplines: PT 02/06/2024 Active 1 goal linked to scheduled/document ed intervention 1 goal intervention scheduled/document ed in this visit PT Impaired gait Disciplines: PT 02/06/2024 Active 1 goal linked to scheduled/document ed intervention 1 goal intervention scheduled/document ed in this visit PT Impaired balance Disciplines: PT 02/06/2024 Active 1 goal linked to scheduled/document ed intervention 1 goal intervention scheduled/document ed in this visit PT Orthopedic Condition Disciplines: PT 02/06/2024 Active 1 goal linked to scheduled/document ed intervention 2 goal interventions scheduled/document ed in this visit PT Learning Assessment Disciplines: PT 02/06/2024 Active 1 goal linked to scheduled/document ed intervention 1 goal intervention scheduled/document ed in this visit Goals Goal Associated Problem Outcome Goal Met? Visit Notes Patient/caregiver will demonstrate ability to obtain, store, identify and administer ordered medications, keep accurate medication list in home, and adhere to medication schedule Description: Patient/caregiver will demonstrate ability to obtain, store, identify and administer ordered medications, keep accurate medication list in home, and adhere to medication schedule by 04/05/24 Medication Education No Patient/caregiver will be able to identify and report symptoms of sepsis Description: Patient/caregiver will be able to identify signs/symptoms of sepsis infection and will verbalize actions to take if suspected by 04/05/24 Sepsis No Patient to maintain parameters within physician-specified ranges throughout certification period Physician Specific Parameters No Manage Risk for falls Description: Patient/caregiver will verbalize knowledge of individualized fall prevention strategies by 04/05/24 Risk for Falls No Manage Pain Description: Patient/caregiver will verbalize knowledge and understanding of appropriate techniques to control pain, including pain medication and non-pharmacological techniques. Patient will verbalize or demonstrate an acceptable level of pain as evidenced by a pain score of 6/10 and improvement in ability to perform activities of daily living to be achieved by 04/05/24 Pain No Manage discharge planning Description: Patient/caregiver will verbalize understanding of ongoing discharge plan provided related to disease management, arrangements for outpatient and/or community services, obtaining medications, supplies, and DME, as needed throughout certification period. Discharge No Improved Muscle Performance and/or ROM Description: LTG: Patient and/or caregiver will verbalize/demonstrate independence with home exercise program, to improve functional mobility, to be achieved by 02/26/24 goal extended through 03/05/24. PT Impaired muscle performance and/or ROM No Improved Gait Description: LTG: Patient will demonstrate improved gait ability as evidenced by ambulation 150 feet with single point cane independently with AD, to return to safe household and community ambulation, in order to attend medical appointments, to be achieved by 02/26/24 goal extended through 03/05/24 PT Impaired gait No Improved Balance Description: LTG: Patient will demonstrate improved standing balance to meet functional goals as evidenced by no falls during cert period to be achieved by 02/26/24 goal extended through 03/05/24 PT Impaired balance No Manage Orthopedic Condition Description: Improve patient and/or caregiver understanding of post surgical and/or non-surgical orthopedic intervention management as evidenced by patient and/or caregiver able to verbalize, demonstrate, and teach back instruction, to be achieved by 02/26/24. goal extended through 03/05/24 PT Orthopedic Condition No Demonstrate understanding of education Description: Patient and/or caregiver will understand educational instruction to be achieved by 02/26/24 goal extended through 03/05/24 PT Learning Assessment No Interventions Intervention Associated Problem/Goal Status Variance Visit Notes Medication Education Description: Evaluate/instruct patient/caregiver on obtaining, storing, identifying and administering ordered medications as well as keeping accurate medication list in the home and adhereing to medication schedule Problem:Medication Education Goal:Patient/caregive r will demonstrate ability to obtain, store, identify and administer ordered medications, keep accurate medication list in home, and adhere to medication schedule Completed Patient instructed on importance of keeping accurate medication list in home. Risk of Sepsis Description: Patient is at risk for sepsis. Monitor closely for s/s of sepsis. Problem:Sepsis Goal:Patient/caregive r will be able to identify and report symptoms of sepsis Completed SPO2 Description: Notify Dr. Bradley if pulse ox is <92% at rest. Problem:Physician Specific Parameters Goal:Patient to maintain parameters within physician-specified ranges throughout certification period Completed Instruct on individual fall risk factors and strategies to prevent falls and injuries caused by falls. Problem:Risk for Falls Goal:Manage Risk for falls Completed PT: Patient instructed on Managing Impaired Functional Mobility: Use assistive device(s): front wheeled walker Managing Pain Instruct on pain and instruct on strategies to control pain Problem:Pain Goal:Manage Pain Completed patient instructed on techniques to control pain including Pharmacological measures and Non-Pharmacological measures; positioning/elevation and use of thermal modalities, apply ice to affected area for the following prescribed frequency: prn. Instruct on ongoing discharge plan Problem:Discharge Goal:Manage discharge planning Completed Ongoing Discharge plan: Discharge plan discussed with patient including frequency and duration for home PT and plan for transition to: outpatient therapy. Physical Therapy Therapeutic Exercises Problem:PT Impaired muscle performance and/or ROM Goal:Improved Muscle Performance and/or ROM Completed patient instructed on strengthening and range of motion exercises including ankle pumps, quad and glut, hip abd and add, saq and heel slides x's 10 each. supine exy hang x's2min, standing heel raises, hip flexion and hams curls x's 10 step flexion stretch x;s 10 with tactile, visual and verbal cues for form and pace. patient instructed to perform home exercise program three times a day which included above ex. Physical Therapy Gait Training Problem:PT Impaired gait Goal:Improved Gait Completed Gait training and instruction to patient on safe ambulation with front wheeled walker for 2x's30 feet with supervision, with verbal cues for corrections of gait deviations including heel to toe. Physical Therapy Balance Training Problem:PT Impaired balance Goal:Improved Balance Completed Developed, implemented, and instructed patient on standing balance exercises including standing ex. Instruct on management of edema Problem:PT Orthopedic Condition Goal:Manage Orthopedic Condition Completed Instruct patient on management of edema including elevation of lle above the level of the heart and ice. Instruct on self-management of post surgical and/or non-surgical orthopedic intervention Problem:PT Orthopedic Condition Goal:Manage Orthopedic Condition Completed patient instructed on staying well hydrated, eating foods with high protein, signs and symptoms of infection, signs and symptoms of DVT/PE, instructed on when to call provider and instructed on when to call 911. Instruct and educate on knowledge deficits Problem:PT Learning Assessment Goal:Demonstrate understanding of education Completed patient verbalize and/or demonstrate understanding of physical therapy education including pain management and home exercise program. Education methods include: verbal cues and visual cues. Further education required to improve knowledge and compliance with home exercise program. 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 TECHNICIAN ROUTINE Discipline -Physical Therapy Problems Problem Description Start Date Status Goals Interve ntions Medication Education Disciplines: Skilled Services 02/06/2024 Active 1 goal linked to scheduled/document ed intervention 1 goal intervention scheduled/documen elizabeth in this visit Sepsis Disciplines: Skilled Services 02/06/2024 Active 1 goal linked to scheduled/document ed intervention 1 goal intervention scheduled/documen elizabeth in this visit Physician Specific Parameters Disciplines: Skilled Services 02/06/2024 Active 1 goal linked to scheduled/document ed intervention 1 goal intervention scheduled/documen elizabeth in this visit Risk for Falls Disciplines: Skilled Services 02/06/2024 Active 1 goal linked to scheduled/document ed intervention 1 goal intervention scheduled/documen elizabeth in this visit Pain Disciplines: Skilled Services 02/06/2024 Active 1 goal linked to scheduled/document ed intervention 1 goal intervention scheduled/documen elizabeth in this visit Discharge Disciplines: Skilled Services 02/06/2024 Active 1 goal linked to scheduled/document ed intervention 2 goal interventions scheduled/documen elizabeth in this visit PT Impaired muscle performance and/or ROM Disciplines: PT 02/06/2024 Active 1 goal linked to scheduled/document ed intervention 1 goal intervention scheduled/documen elizabeth in this visit PT Impaired mobility Disciplines: PT 02/06/2024 Active 1 goal linked to scheduled/document ed intervention 1 goal intervention scheduled/documen elizabeth in this visit PT Impaired gait Disciplines: PT 02/06/2024 Active 2 goals linked to scheduled/document ed interventions 2 goal interventions scheduled/documen elizabeth in this visit PT Impaired balance Disciplines: PT 02/06/2024 Active 1 goal linked to scheduled/document ed intervention 1 goal intervention scheduled/documen elizabeth in this visit PT Orthopedic Condition Disciplines: PT 02/06/2024 Active 1 goal linked to scheduled/document ed intervention 2 goal interventions scheduled/documen elizabeth in this visit PT Learning Assessment Disciplines: PT 02/06/2024 Active 1 goal linked to scheduled/document ed intervention 1 goal intervention scheduled/documen elizabeth in this visit PT Cardiovascular Disease Disciplines: PT 02/06/2024 Active 1 goal linked to scheduled/document ed intervention 1 goal intervention scheduled/documen elizabeth in this visit Goals Goal Associated Problem Outcome Goal Met? Visit Notes Patient/caregiver will demonstrate ability to obtain, store, identify and administer ordered medications, keep accurate medication list in home, and adhere to medication schedule Description: Patient/caregiver will demonstrate ability to obtain, store, identify and administer ordered medications, keep accurate medication list in home, and adhere to medication schedule by 04/05/24 Medication Education No Patient/caregiver will be able to identify and report symptoms of sepsis Description: Patient/caregiver will be able to identify signs/symptoms of sepsis infection and will verbalize actions to take if suspected by 04/05/24 Sepsis No Patient to maintain parameters within physician-specified ranges throughout certification period Physician Specific Parameters No Manage Risk for falls Description: Patient/caregiver will verbalize knowledge of individualized fall prevention strategies by 04/05/24 Risk for Falls No Manage Pain Description: Patient/caregiver will verbalize knowledge and understanding of appropriate techniques to control pain, including pain medication and non-pharmacological techniques. Patient will verbalize or demonstrate an acceptable level of pain as evidenced by a pain score of 6/10 and improvement in ability to perform activities of daily living to be achieved by 04/05/24 Pain No Manage discharge planning Description: Patient/caregiver will verbalize understanding of ongoing discharge plan provided related to disease management, arrangements for outpatient and/or community services, obtaining medications, supplies, and DME, as needed throughout certification period. Discharge No Improved Muscle Performance and/or ROM Description: LTG: Patient and/or caregiver will verbalize/demonstrate independence with home exercise program, to improve functional mobility, to be achieved by 02/26/24 goal extended through 03/05/24. PT Impaired muscle performance and/or ROM No Improved Bed Mobility Description: STG: Patient will demonstrate improved supine <> sit independently to be achieved by 02/16/24 PT Impaired mobility No Improved Stair Climbing Description: LTG: Patient will demonstrate improved stair negotiation as evidenced by ascend/descend 7/3 steps with railing and with cane independently, to safely access all areas of the home and exit home, to be achieved by 02/26/24. goal extended through 03/05/24 PT Impaired gait No Improved Gait Description: LTG: Patient will demonstrate improved gait ability as evidenced by ambulation 150 feet with single point cane independently with AD, to return to safe household and community ambulation, in order to attend medical appointments, to be achieved by 02/26/24 goal extended through 03/05/24 PT Impaired gait No Improved Balance Description: LTG: Patient will demonstrate improved standing balance to meet functional goals as evidenced by no falls during cert period to be achieved by 02/26/24 goal extended through 03/05/24 PT Impaired balance No Manage Orthopedic Condition Description: Improve patient and/or caregiver understanding of post surgical and/or non-surgical orthopedic intervention management as evidenced by patient and/or caregiver able to verbalize, demonstrate, and teach back instruction, to be achieved by 02/26/24. goal extended through 03/05/24 PT Orthopedic Condition No Demonstrate understanding of education Description: Patient and/or caregiver will understand educational instruction to be achieved by 02/26/24 goal extended through 03/05/24 PT Learning Assessment No Manage Secondary Cardiovascular disease Description: Improve patient and/or caregiver understanding of secondary cardiovascular disease management as evidenced by patient and/or caregiver able to verbalize, demonstrate, and teach back instruction, to be achieved by 02/26/24 PT Cardiovascular Disease No Interventions Intervention Associated Problem/Goal Status Variance Visit Notes Medication Education Description: Evaluate/instruct patient/caregiver on obtaining, storing, identifying and administering ordered medications as well as keeping accurate medication list in the home and adhereing to medication schedule Problem:Medication Education Goal:Patient/caregive r will demonstrate ability to obtain, store, identify and administer ordered medications, keep accurate medication list in home, and adhere to medication schedule Completed Patient instructed on importance of keeping accurate medication list in home. Risk of Sepsis Description: Patient is at risk for sepsis. Monitor closely for s/s of sepsis. Problem:Sepsis Goal:Patient/caregive r will be able to identify and report symptoms of sepsis Completed SPO2 Description: Notify Dr. Bradley if pulse ox is <92% at rest. Problem:Physician Specific Parameters Goal:Patient to maintain parameters within physician-specified ranges throughout certification period Completed Instruct on individual fall risk factors and strategies to prevent falls and injuries caused by falls. Problem:Risk for Falls Goal:Manage Risk for falls Completed PT: Patient instructed on Managing Impaired Functional Mobility: Use assistive device(s): front wheeled walker Managing Pain Instruct on pain and instruct on strategies to control pain Problem:Pain Goal:Manage Pain Completed patient instructed on techniques to control pain including Pharmacological measures and Non-Pharmacological measures; use of thermal modalities, apply ice to affected area for the following prescribed frequency: prn. Deliver [facility] Problem:Discharge Goal:Manage discharge planning Completed Delivered [facility] on 02/29/24 for discharge date of 03/03/24. patient deneis questions/concerns with form. Instruct on ongoing discharge plan Problem:Discharge Goal:Manage discharge planning Completed Ongoing Discharge plan: Discharge plan discussed with patient including frequency and duration for home PT and plan for transition to: outpatient therapy. Physical Therapy Therapeutic Exercises Problem:PT Impaired muscle performance and/or ROM Goal:Improved Muscle Performance and/or ROM Completed patient instructed on strengthening and range of motion exercises including ankle pumps, quad and glut sets, hip abd and add, saq and heel slides. standing heel raises, hams curls and hip/knee flexion x's 10-15 each . Step flexion stretch x's 10. supine ext hang xs3min. seated heel slides x's10 with verbal and visual cues for form. patient instructed to perform home exercise program twice a day which included above ex. Physical Therapy Bed Mobility Training Problem:PT Impaired mobility Goal:Improved Bed Mobility Completed Bed mobility training and instruction to patient, including supine<>sit with independent Physical Therapy Stair Training Problem:PT Impaired gait Goal:Improved Stair Climbing Completed Stair training and instruction to patient on safe stair climbing, ascend/descend 8 steps, with railing with supervision and verbal cues for safety. Physical Therapy Gait Training Problem:PT Impaired gait Goal:Improved Gait Completed Gait training and instruction to patient on safe ambulation with front wheeled walker for 3x's 40 feet with supervision, with verbal cues for corrections of gait deviations including heel to toe . Physical Therapy Balance Training Problem:PT Impaired balance Goal:Improved Balance Completed Developed, implemented, and instructed patient on standing balance exercises including standing ex. Instruct on management of edema Problem:PT Orthopedic Condition Goal:Manage Orthopedic Condition Completed Instruct patient on management of edema including elevation of LLe above the level of the heart and ice. Instruct on self-management of post surgical and/or non-surgical orthopedic intervention Problem:PT Orthopedic Condition Goal:Manage Orthopedic Condition Completed patient instructed on signs and symptoms of infection, signs and symptoms of DVT/PE, instructed on when to call provider and instructed on when to call 911. Instruct and educate on knowledge deficits Problem:PT Learning Assessment Goal:Demonstrate understanding of education Completed patient verbalize and/or demonstrate understanding of physical therapy education including home exercise program. Education methods include: verbal cues. Further education required to improve knowledge and compliance with home exercise program. Instruct on signs, symptoms, and management of secondary cardiovascular disease Problem:PT Cardiovascular Disease Goal:Manage Secondary Cardiovascular disease Completed Instructed patient on definition of cardiovascular disease. [facility] Visit Details Visit Type -PT AGENCY DC W V LARRY Discipline -Physical Therapy Problems Problem Description Start Date Status Goals Interve ntions Medication Education Disciplines: Skilled Services 02/06/2024 Resolved on 03/03/2024 1 goal linked to scheduled/documen elizabeth intervention Sepsis Disciplines: Skilled Services 02/06/2024 Resolved on 03/03/2024 1 goal linked to scheduled/documen elizabeth intervention 1 goal intervention scheduled/documen elizabeth in this visit Physician Specific Parameters Disciplines: Skilled Services 02/06/2024 Resolved on 03/03/2024 1 goal linked to scheduled/documen elizabeth intervention 1 goal intervention scheduled/documen elizabeth in this visit Risk for Falls Disciplines: Skilled Services 02/06/2024 Resolved on 03/03/2024 1 goal linked to scheduled/documen elizabeth intervention 1 goal intervention scheduled/documen elizabeth in this visit Pain Disciplines: Skilled Services 02/06/2024 Resolved on 03/03/2024 1 goal linked to scheduled/documen elizabeth intervention 1 goal intervention scheduled/documen elizabeth in this visit High Risk Medications Disciplines: Skilled Services 02/06/2024 Resolved on 03/03/2024 1 goal linked to scheduled/documen elizabeth intervention Discharge Disciplines: Skilled Services 02/06/2024 Resolved on 03/03/2024 1 goal linked to scheduled/documen elizabeth intervention 1 goal intervention scheduled/documen elizabeth in this visit Advance Directives Disciplines: Skilled Services 02/06/2024 Resolved on 03/03/2024 1 goal linked to scheduled/documen elizabeth intervention PT Impaired muscle performance and/or ROM Disciplines: PT 02/06/2024 Resolved on 03/03/2024 1 goal linked to scheduled/documen elizabeth intervention 1 goal intervention scheduled/documen elizabeth in this visit PT Impaired mobility Disciplines: PT 02/06/2024 Resolved on 03/03/2024 2 goals linked to scheduled/documen elizabeth interventions 2 goal interventions scheduled/documen elizabeth in this visit PT Impaired gait Disciplines: PT 02/06/2024 Resolved on 03/03/2024 2 goals linked to scheduled/documen elizabeth interventions 2 goal interventions scheduled/documen elizabeth in this visit PT Impaired balance Disciplines: PT 02/06/2024 Resolved on 03/03/2024 1 goal linked to scheduled/documen elizabeth intervention 1 goal intervention scheduled/documen elizabeth in this visit PT Orthopedic Condition Disciplines: PT 02/06/2024 Resolved on 03/03/2024 1 goal linked to scheduled/documen elizabeth intervention 3 goal interventions scheduled/documen elizabeth in this visit PT Learning Assessment Disciplines: PT 02/06/2024 Resolved on 03/03/2024 1 goal linked to scheduled/documen elizabeth intervention 1 goal intervention scheduled/documen elizabeth in this visit PT Cardiovascular Disease Disciplines: PT 02/06/2024 Resolved on 03/03/2024 1 goal linked to scheduled/documen elizabeth intervention 1 goal intervention scheduled/documen elizabeth in this visit Mental Health Disciplines: Skilled Services 02/06/2024 Resolved on 03/03/2024 1 goal linked to scheduled/documen elizabeth intervention Goals Goal Associated Problem Outcome Goal Met? Visit Notes Patient/caregiver will demonstrate ability to obtain, store, identify and administer ordered medications, keep accurate medication list in home, and adhere to medication schedule Description: Patient/caregiver will demonstrate ability to obtain, store, identify and administer ordered medications, keep accurate medication list in home, and adhere to medication schedule by 04/05/24 Medication Education Completed Yes Patient/caregiver will be able to identify and report symptoms of sepsis Description: Patient/caregiver will be able to identify signs/symptoms of sepsis infection and will verbalize actions to take if suspected by 04/05/24 Sepsis Completed Yes Patient to maintain parameters within physician-specified ranges throughout certification period Physician Specific Parameters Completed Yes Manage Risk for falls Description: Patient/caregiver will verbalize knowledge of individualized fall prevention strategies by 04/05/24 Risk for Falls Completed Yes Manage Pain Description: Patient/caregiver will verbalize knowledge and understanding of appropriate techniques to control pain, including pain medication and non-pharmacological techniques. Patient will verbalize or demonstrate an acceptable level of pain as evidenced by a pain score of 6/10 and improvement in ability to perform activities of daily living to be achieved by 04/05/24 Pain Completed Yes Patient/caregiver will teach back high risk medication side effect and precaution education Description: STG Patient/caregiver will verbalize understanding of high risk medication side effects and precautions to be achieved by 02/06/24 LTG Patient/caregiver will continue to verbalize understanding of high risk medication side effects and precautions throughout certification period. High Risk Medications Completed Yes Manage discharge planning Description: Patient/caregiver will verbalize understanding of ongoing discharge plan provided related to disease management, arrangements for outpatient and/or community services, obtaining medications, supplies, and DME, as needed throughout certification period. Discharge Completed Yes Patient/caregiver will make healthcare providers aware of and any changes to Advance Directives throughout certification period Advance Directives Completed Yes Improved Muscle Performance and/or ROM Description: LTG: Patient and/or caregiver will verbalize/demonstrate independence with home exercise program, to improve functional mobility, to be achieved by 02/26/24 goal extended through 03/05/24. PT Impaired muscle performance and/or ROM Completed Yes Improved Transfers Description: STG: Patient will demonstrate safe transfers to/from bed, chair and toilet independently, to be achieved by 02/19/24 LTG: Patient will demonstrate safe transfers to/from shower/tub independently, to be achieved by 02/26/24. goal extended through 03/05/24 PT Impaired mobility Completed Yes Improved Bed Mobility Description: STG: Patient will demonstrate improved supine <> sit independently to be achieved by 02/16/24 PT Impaired mobility Completed Yes Improved Stair Climbing Description: LTG: Patient will demonstrate improved stair negotiation as evidenced by ascend/descend 7/3 steps with railing and with cane independently, to safely access all areas of the home and exit home, to be achieved by 02/26/24. goal extended through 03/05/24 PT Impaired gait Completed Yes Improved Gait Description: LTG: Patient will demonstrate improved gait ability as evidenced by ambulation 150 feet with single point cane independently with AD, to return to safe household and community ambulation, in order to attend medical appointments, to be achieved by 02/26/24 goal extended through 03/05/24 PT Impaired gait Completed Yes Improved Balance Description: LTG: Patient will demonstrate improved standing balance to meet functional goals as evidenced by no falls during cert period to be achieved by 02/26/24 goal extended through 03/05/24 PT Impaired balance Completed Yes Manage Orthopedic Condition Description: Improve patient and/or caregiver understanding of post surgical and/or non-surgical orthopedic intervention management as evidenced by patient and/or caregiver able to verbalize, demonstrate, and teach back instruction, to be achieved by 02/26/24. goal extended through 03/05/24 PT Orthopedic Condition Completed Yes Demonstrate understanding of education Description: Patient and/or caregiver will understand educational instruction to be achieved by 02/26/24 goal extended through 03/05/24 PT Learning Assessment Completed Yes Manage Secondary Cardiovascular disease Description: Improve patient and/or caregiver understanding of secondary cardiovascular disease management as evidenced by patient and/or caregiver able to verbalize, demonstrate, and teach back instruction, to be achieved by 02/26/24 PT Cardiovascular Disease Completed Yes Improved management of mental health condition(s) Description: Patient/caregiver will teach back mental health symptom identification and management techniques by 04/05/24 Mental Health Completed Yes Interventions Intervention Associated Problem/Goal Status Variance Visit Notes Risk of Sepsis Description: Patient is at risk for sepsis. Monitor closely for s/s of sepsis. Problem:Sepsis Goal:Patient/caregive r will be able to identify and report symptoms of sepsis Completed SPO2 Description: Notify Dr. Bradley if pulse ox is <92% at rest. Problem:Physician Specific Parameters Goal:Patient to maintain parameters within physician-specified ranges throughout certification period Completed Instruct on individual fall risk factors and strategies to prevent falls and injuries caused by falls. Problem:Risk for Falls Goal:Manage Risk for falls Completed PT: Patient instructed on Eliminating Environmental Hazards: Keep pathways clear, Keep pets out of pathways, Remove unsafe rugs, Move furniture from pathways and Install hand rails/grab bars Managing Impaired Functional Mobility: Use assistive device(s): front wheeled walker Managing Pain Instruct on pain and instruct on strategies to control pain Problem:Pain Goal:Manage Pain Completed patient instructed on techniques to control pain including Pharmacological measures and Non-Pharmacological measures; rest, positioning/elevation and use of thermal modalities, apply ice to affected area . Instruct on final discharge plan and deliver discharge instructions Problem:Discharge Goal:Manage discharge planning Completed Delivered Discharge plan: Discharge plan discussed with patient for plan for transition to: outpatient therapy Physical Therapy Therapeutic Exercises Problem:PT Impaired muscle performance and/or ROM Goal:Improved Muscle Performance and/or ROM Completed patient instructed on strengthening and range of motion exercises including ankle pumps, quad and glut sets, hip abd and add, saq and heel slides. standing heel raises, hams curls and hip/knee flexion x's 10-15 each . Step flexion stretch x's 10. supine ext hang xs3min. seated heel slides x's10 with verbal and visual cues for form. patient instructed to perform home exercise program twice a day which included above ex. Physical Therapy Transfer Training Problem:PT Impaired mobility Goal:Improved Transfers Completed ABAD transfers with sfae/proper technique Physical Therapy Bed Mobility Training Problem:PT Impaired mobility Goal:Improved Bed Mobility Completed ABAD bed mobility Physical Therapy Stair Training Problem:PT Impaired gait Goal:Improved Stair Climbing Completed up and down 6-8 steps with rail , side ways Physical Therapy Gait Training Problem:PT Impaired gait Goal:Improved Gait Completed amb household distances /surfaces with WW . Cont to need cues for recip pattern , heel toe with increased clearance of the feet Physical Therapy Balance Training Problem:PT Impaired balance Goal:Improved Balance Completed pt demonstrates improved dynamic standing balacne as evidenced by a tug of 38 Instruct on orthopedic precautions and weight bearing restrictions Description: Orthopedic precautions including left total knee: no crossing legs, no knee flexed over pillow at rest, no kneeling, no squatting and no twisting. Weight bearing restrictions include: WBAT of involved extremity. Problem:PT Orthopedic Condition Goal:Manage Orthopedic Condition Completed patient instructed on orthopedic precautions and weight bearing restrictions. Instruct on management of edema Problem:PT Orthopedic Condition Goal:Manage Orthopedic Condition Completed Instruct patient on management of edema including elevation of LLE above the level of the heart and ice. Instruct on self-management of post surgical and/or non-surgical orthopedic intervention Problem:PT Orthopedic Condition Goal:Manage Orthopedic Condition Completed patient instructed on managagement of orthopedic condition, eating foods with high protein, signs and symptoms of infection, signs and symptoms of DVT/PE and instructed on when to call provider. Instruct and educate on knowledge deficits Problem:PT Learning Assessment Goal:Demonstrate understanding of education Completed patient verbalize and/or demonstrate understanding of physical therapy education including cardiac disease management, orthopedic condition management, surgical precautions, pain management, fall prevention strategies, home safety, functional activity and home exercise program. Education methods include: verbal cues and written instructions. Instruct on signs, symptoms, and management of secondary cardiovascular disease Problem:PT Cardiovascular Disease Goal:Manage Secondary Cardiovascular disease Completed Instructed patient on instructed on when to call provider. documented in this encounter [facility] for referral (narrative)* Consultation (Elective) - Pending Review Specialty Diagnoses / Procedures Referred By Yamilaac t Referred To Contact Cardiology Diagnoses Primary hypertension Morbid obesity, unspecified obesity type (HCC) Procedures GA OFFICE/OUTPATIENT NEW HIGH MDM 60-74 MINUTES Nancy Aldridge DO [address] [facility] [address] [place] [address] [facility] Cf Card [address] [place] [address] Referral ID Status Reason Start Date Expiration Date Visits Requested Visits Authorized [id number] Pending Review Specialty Services Required 08/25/2022 08/25/2023 1 1 [facility] for referral (narrative)* Outpatient Procedure (Routine) - Pending Review Specialty Diagnoses / Procedures Referred By Bob t Referred To Contact [facility] Diagnoses Asthma, unspecified asthma severity, unspecified whether complicated, unspecified whether persistent Procedures SPIROMETRY - BASELINE AND POST DILATOR BRNCDILAT RSPSE SPMTRY PRE&POST-BRNCDILAT ADMN Moises Malcolm, KYLER.HUMAN MACHINE INTERFACE ENGINEER [address] [place] [address] Respiratory [place] [address] [place] [id number] Referral ID Status Reason Start Date Expiration Date Visits Requested Visits Authorized [id number] Pending Review Auto-Generat ed Referral 04/16/2023 05/15/2024 1 1 * Consult, Test, Treat (Routine) - Pending Review Specialty Diagnoses / Procedures Referred By Contac t Referred To Contact Diagnoses Frequent UTI Procedures CONSULT TO UROLOGY OFFICE/OUTPATIENT NEW HIGH MDM 60-74 MINUTES Moises Malcolm 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 [address] [place] [address] Betty Dominguez [address] [place] [address] Referral ID Status Reason Start Date Expiration Date Visits Requested Visits Authorized [id number] Pending Review PCP Requested Referral 04/16/2023 04/15/2024 1 1 * Consult, Test, Treat (Routine) - Pending Review Specialty Diagnoses / Procedures Referred By Contac t Referred To Contact Diagnoses Incontinence of feces, unspecified fecal incontinence type Procedures CONSULT TO GASTROENTEROLOGY OFFICE/OUTPATIENT [facility] 60-74 MINUTES Moises Malcolm APRN.HUMAN MACHINE INTERFACE ENGINEER [address] [place] [address] Anshul Washington, DO [address] [facility] [address] [place] [address] Referral ID Status Reason Start Date Expiration Date Visits Requested Visits Authorized [id number] Pending Review PCP Requested Referral 04/16/2023 04/15/2024 1 1 * Diagnostic Procedure Only (Routine) - Pending Review Specialty Diagnoses / Procedures Referred By Contac t Referred To Contact BR IMAGING Diagnoses Encounter for screening mammogram for malignant neoplasm of breast Procedures [place]INA SCREENING SCREENING MAMMOGRAPHY BI 2-VIEW BREAST INC CAD Moises Malcolm APRN.HUMAN MACHINE INTERFACE ENGINEER [address] [place] [address] Br Imaging [address] [place] [address] Referral ID Status Reason Start Date Expiration Date Visits Requested Visits Authorized [id number] Pending Review Auto-Generat ed Referral 04/16/2023 05/15/2024 1 1 [facility] for referral (narrative)* Diagnostic Procedure Only (Routine) - Pending Review Specialty Diagnoses / Procedures Referred By Contac t Referred To Contact XR IMAGING Diagnoses Screening for osteoporosis Asymptomatic menopause Procedures DXA-AXIAL SKELETON Moises Malcolm, 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 [address] [place] [address] [place] [address] Referral ID Status Reason Start Date Expiration Date Visits Requested Visits Authorized [id number] Pending Review Auto-Generat ed Referral 12/08/2023 2025 1 1 [facility] for referral (narrative)* Diagnostic Procedure Only (Routine) - Closed Specialty Diagnoses / Procedures Referred By Contac t Referred To Contact XR IMAGING Diagnoses Left knee pain, unspecified chronicity Procedures XR KNEE POST OP 3V AP/LAT/MERCHANT LEFT RADIOLOGIC EXAMINATION KNEE 3 VIEWS Marcello Lloyd PA-C [address] [place] [address] [place] [address] Referral ID Status Reason Start Date Expiration Date V isits Requested Visits Authorized [id number] Closed Auto-Generate d Referral 02/05/2024 03/06/2025 1 1 [facility] for referral (narrative)* Diagnostic Procedure Only (Routine) - Closed Specialty Diagnoses / Procedures Referred By Contac t Referred To Contact XR IMAGING Diagnoses Pain in both knees, unspecified chronicity Procedures XR KNEE POST OP 3V AP/LAT/MERCHANT BILATERAL RADIOLOGIC EXAMINATION KNEE 3 VIEWS Marcello Lloyd PA-C [id number] [place] [address] Referral ID Status Reason Start Date Expiration Date V isits Requested Visits Authorized [id number] Closed Auto-Generate d Referral 10/29/2023 11/26/2024 1 1 [facility] for referral (narrative)* Consultation (Routine) - Pending Review Specialty Diagnoses / Procedures Referred By Contac t Referred To Contact Pulmonary Disease / Pulmonology Diagnoses Primary hypertension Morbid obesity, unspecified obesity type (HCC) Procedures GA OFFICE/OUTPATIENT NEW [facility] 60-74 MINUTES Nancy Aldridge, DO [address] [place] [address] [place] [address] [place] [address] Referral ID Status Reason Start Date Expiration Date Visits Requested Visits Authorized [id number] Pending Review Specialty Services Required 08/25/2022 08/25/2023 1 1 * Consultation (Elective) - Pending Review Specialty Diagnoses / Procedures Referred By Bob t Referred To Contact Cardiology Diagnoses Primary hypertension Morbid obesity, unspecified obesity type (HCC) Procedures GA OFFICE/OUTPATIENT NEW [facility] 60-74 MINUTES Nancy Aldridge, DO [address] [place] [address] Sh Cf Card [address] [place] [address] Referral ID Status Reason Start Date Expiration Date Visits Requested Visits Authorized [id number] Pending Review Specialty Services Required 08/25/2022 08/25/2023 1 1 [facility] for visit Narrative* Diagnostic Procedure Only (Routine) - Closed Specialty Diagnoses / Procedures Referred By Contac t Referred To Contact XR IMAGING Diagnoses Heel spur, right Procedures XR FOOT GENERAL 3V AP/LAT/OBL RIGHT RADEX FOOT COMPLETE MINIMUM [address] [place] [address] [place] [address] [place] [address] Referral ID Status Reason Start Date Expiration Date V isits Requested Visits Authorized [id number] Closed Auto-Generate d Referral 05/27/2023 06/25/2024 1 1 [facility] for visit Narrative* Diagnostic Procedure Only (Routine) - Closed Specialty Diagnoses / Procedures Referred By Contac t Referred To Contact XR IMAGING Diagnoses Left knee pain, unspecified chronicity Procedures XR KNEE POST OP 3V AP/LAT/MERCHANT LEFT RADIOLOGIC EXAMINATION KNEE 3 VIEWS Marcello Lloyd PA-C [address] [place] [address] [place] [address] Referral ID Status Reason Start Date Expiration Date V isits Requested Visits Authorized [id number] Closed Auto-Generate d Referral 02/05/2024 03/06/2025 1 1 [facility] for visit Narrative* Diagnostic Procedure Only (Routine) - Closed Specialty Diagnoses / Procedures Referred By Bob t Referred To Contact XR IMAGING Diagnoses Pain in both knees, unspecified chronicity Procedures XR KNEE POST OP 3V AP/LAT/MERCHANT BILATERAL RADIOLOGIC EXAMINATION KNEE 3 VIEWS Marcello Lloyd PA-C [address] [phone] Xr Imaging [facility]95 Referral ID Status Reason Start Date Expiration Date V isits Requested Visits Authorized [id number] Closed Auto-Generate d Referral 10/29/2023 11/26/2024 1 1 [facility] for visit Narrative* Diagnostic Procedure Only (Routine) - Closed Specialty Diagnoses / Procedures Referred By Bob t Referred To Contact BR IMAGING Diagnoses Encounter for screening mammogram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 alcohol or drug abuse patient.[facility] HospitalIn the event this information is protected by the Federal Confidentiality of Alcohol and Drug Abuse Patient Records regulations: The Federal rules restrict any use of the information to criminally investigate or prosecute any alcohol or drug abuse patient.[facility] HospitalIn the event this information is protected by the Federal Confidentiality of Alcohol and Drug Abuse Patient Records regulations: The Federal rules restrict any use of the information to criminally investigate or prosecute any alcohol or drug abuse patient.[facility] HospitalIn the event this information is protected by the Federal Confidentiality of Alcohol and Drug Abuse Patient Records regulations: The Federal rules restrict any use of the information to criminally investigate or prosecute any alcohol or drug abuse patient.[facility] HospitalIn the event this information is protected by the Federal Confidentiality of Alcohol and Drug Abuse Patient Records regulations: The Federal rules restrict any use of the information to criminally investigate or prosecute any alcohol or drug abuse patient.[facility] HospitalIn the event this information is protected by the Federal Confidentiality of Alcohol and Drug Abuse Patient Records regulations: The Federal rules restrict any use of the information to criminally investigate or prosecute any alcohol or drug abuse patient.[facility] HospitalIn the event this information is protected by the Federal Confidentiality of Alcohol and Drug Abuse Patient Records regulations: The Federal rules restrict any use of the information to criminally investigate or prosecute any alcohol or drug abuse patient.[facility] HospitalIn the event this information is protected by the Federal Confidentiality of Alcohol and Drug Abuse Patient Records regulations: The Federal rules restrict any use of the information to criminally investigate or prosecute any alcohol or drug abuse patient.[facility] HospitalIn the event this information is protected by the Federal Confidentiality of Alcohol and Drug Abuse Patient Records regulations: The Federal rules restrict any use of the information to criminally investigate or prosecute any alcohol or drug abuse patient.[facility] HospitalIn the event this information is protected by the Federal Confidentiality of Alcohol and Drug Abuse Patient Records regulations: The Federal rules restrict any use of the information to criminally investigate or prosecute any alcohol or drug abuse patient.[facility] HospitalIn the event this information is protected by the Federal Confidentiality of Alcohol and Drug Abuse Patient Records regulations: The Federal rules restrict any use of the information to criminally investigate or prosecute any alcohol or drug abuse patient.[facility] HospitalIn the event this information is protected by the Federal Confidentiality of Alcohol and Drug Abuse Patient Records regulations: The Federal rules restrict any use of the information to criminally investigate or prosecute any alcohol or drug abuse patient.[facility] HospitalIn the event this information is protected by the Federal Confidentiality of Alcohol and Drug Abuse Patient Records regulations: The Federal rules restrict any use of the information to criminally investigate or prosecute any alcohol or drug abuse patient.[facility] HospitalIn the event this information is protected by the Federal Confidentiality of Alcohol and Drug Abuse Patient Records regulations: The Federal rules restrict any use of the information to criminally investigate or prosecute any alcohol or drug abuse patient.[facility] HospitalIn the event this information is protected by the Federal Confidentiality of Alcohol and Drug Abuse Patient Records regulations: The Federal rules restrict any use of the information to criminally investigate or prosecute any alcohol or drug abuse patient.[facility] HospitalIn the event this information is protected by the Federal Confidentiality of Alcohol and Drug Abuse Patient Records regulations: The Federal rules restrict any use of the information to criminally investigate or prosecute any alcohol or drug abuse patient.[facility] HospitalIn the event this information is protected by the Federal Confidentiality of Alcohol and Drug Abuse Patient Records regulations: The Federal rules restrict any use of the information to criminally investigate or prosecute any alcohol or drug abuse patient.[facility] HospitalIn the event this information is protected by the Federal Confidentiality of Alcohol and Drug Abuse Patient Records regulations: The Federal rules restrict any use of the information to criminally investigate or prosecute any alcohol or drug abuse patient.[facility] HospitalIn the event this information is protected by the Federal Confidentiality of Alcohol and Drug Abuse Patient Records regulations: The Federal rules restrict any use of the information to criminally investigate or prosecute any alcohol or drug abuse patient.[facility] HospitalIn the event this information is protected by the Federal Confidentiality of Alcohol and Drug Abuse Patient Records regulations: The Federal rules restrict any use of the information to criminally investigate or prosecute any alcohol or drug abuse patient.[facility] HospitalIn the event this information is protected by the Federal Confidentiality of Alcohol and Drug Abuse Patient Records regulations: The Federal rules restrict any use of the information to criminally investigate or prosecute any alcohol or drug abuse patient.[facility] HospitalIn the event this information is protected by the Federal Confidentiality of Alcohol and Drug Abuse Patient Records regulations: The Federal rules restrict any use of the information to criminally investigate or prosecute any alcohol or drug abuse patient.[facility] HospitalIn the event this information is protected by the Federal Confidentiality of Alcohol and Drug Abuse Patient Records regulations: The Federal rules restrict any use of the information to criminally investigate or prosecute any alcohol or drug abuse patient.[facility] HospitalIn the event this information is protected by the Federal Confidentiality of Alcohol and Drug Abuse Patient Records regulations: The Federal rules restrict any use of the information to criminally investigate or prosecute any alcohol or drug abuse patient.[facility] HospitalIn the event this information is protected by the Federal Confidentiality of Alcohol and Drug Abuse Patient Records regulations: The Federal rules restrict any use of the information to criminally investigate or prosecute any alcohol or drug abuse patient.[facility] HospitalIn the event this information is protected by the Federal Confidentiality of Alcohol and Drug Abuse Patient Records regulations: The Federal rules restrict any use of the information to criminally investigate or prosecute any alcohol or drug abuse patient.[facility] HospitalIn the event this information is protected by the Federal Confidentiality of Alcohol and Drug Abuse Patient Records regulations: The Federal rules restrict any use of the information to criminally investigate or prosecute any alcohol or drug abuse patient.[facility] HospitalIn the event this information is protected by the Federal Confidentiality of Alcohol and Drug Abuse Patient Records regulations: The Federal rules restrict any use of the information to criminally investigate or prosecute any alcohol or drug abuse patient.[facility] HospitalIn the event this information is protected by the Federal Confidentiality of Alcohol and Drug Abuse Patient Records regulations: The Federal rules restrict any use of the information to criminally investigate or prosecute any alcohol or drug abuse patient.[facility] HospitalIn the event this information is protected by the Federal Confidentiality of Alcohol and Drug Abuse Patient Records regulations: The Federal rules restrict any use of the information to criminally investigate or prosecute any alcohol or drug abuse patient.[facility] HospitalIn the event this information is protected by the Federal Confidentiality of Alcohol and Drug Abuse Patient Records regulations: The Federal rules restrict any use of the information to criminally investigate or prosecute any alcohol or drug abuse patient.[facility] HospitalIn the event this information is protected by the Federal Confidentiality of Alcohol and Drug Abuse Patient Records regulations: The Federal rules restrict any use of the information to criminally investigate or prosecute any alcohol or drug abuse patient.[facility] HospitalIn the event this information is protected by the Federal Confidentiality of Alcohol and Drug Abuse Patient Records regulations: The Federal rules restrict any use of the information to criminally investigate or prosecute any alcohol or drug abuse patient.[facility] HospitalIn the event this information is protected by the Federal Confidentiality of Alcohol and Drug Abuse Patient Records regulations: The Federal rules restrict any use of the information to criminally investigate or prosecute any alcohol or drug abuse patient.[facility] HospitalIn the event this information is protected by the Federal Confidentiality of Alcohol and Drug Abuse Patient Records regulations: The Federal rules restrict any use of the information to criminally investigate or prosecute any alcohol or drug abuse patient.[facility] HospitalIn the event this information is protected by the Federal Confidentiality of Alcohol and Drug Abuse Patient Records regulations: The Federal rules restrict any use of the information to criminally investigate or prosecute any alcohol or drug abuse patient.[facility] HospitalIn the event this information is protected by the Federal Confidentiality of Alcohol and Drug Abuse Patient Records regulations: The Federal rules restrict any use of the information to criminally investigate or prosecute any alcohol or drug abuse patient.[facility] HospitalIn the event this information is protected by the Federal Confidentiality of Alcohol and Drug Abuse Patient Records regulations: The Federal rules restrict any use of the information to criminally investigate or prosecute any alcohol or drug abuse patient.[facility] HospitalIn the event this information is protected by the Federal Confidentiality of Alcohol and Drug Abuse Patient Records regulations: The Federal rules restrict any use of the information to criminally investigate or prosecute any alcohol or drug abuse patient.[facility] HospitalIn the event this information is protected by the Federal Confidentiality of Alcohol and Drug Abuse Patient Records regulations: The Federal rules restrict any use of the information to criminally investigate or prosecute any alcohol or drug abuse patient.[facility] HospitalIn the event this information is protected by the Federal Confidentiality of Alcohol and Drug Abuse Patient Records regulations: The Federal rules restrict any use of the information to criminally investigate or prosecute any alcohol or drug abuse patient.[facility] HospitalIn the event this information is protected by the Federal Confidentiality of Alcohol and Drug Abuse Patient Records regulations: The Federal rules restrict any use of the information to criminally investigate or prosecute any alcohol or drug abuse patient.[facility] HospitalIn the event this information is protected by the Federal Confidentiality of Alcohol and Drug Abuse Patient Records regulations: The Federal rules restrict any use of the information to criminally investigate or prosecute any alcohol or drug abuse patient.[facility] Care Teams (unrecognized sec tion and content) Certified Residential Medication Aide Relationship Specialty Start Date End Date Agusto Elliott DO [address] [id number] PCP - General Family Practice 10/28/18 Team Status: Active Member Role Status Dates No Primary Care Physician Family Provider Active Dr. Ashleigh Garcia MD Primary Care Provider Active Team Status: Inactive Member Role Status Dates Dr. Ashleigh Garcia MD Primary Care Provider, Referring Provider Active Dr. Alfonzo Broderick MD Attending Provider Active Team Status: Inactive Member Role Status Dates Dr. Ashleigh Garcia MD Primary Care Provider Active Dr. Shellie Nicholson MD Attending Provider, Emergency Provider Active Team Status: Inactive Member Role Status Dates Dr. Ashleigh Garcia MD Primary Care Provider, Attending Provider Active Team Status: Inactive Member Role Status Dates Dr. Ashleigh Garcia MD Primary Care Provider Active Dr. Domingo Zeng MD Attending Provider, Emergency Provider Active Team Status: Inactive Member Role Status Dates Dr. Ashleigh Garcia MD Primary Care Provider Active Dr. Jenelle Luis MD Attending Provider, Emergency Provider Active Team Status: Inactive Member Role Status Dates Dr. Ashleigh Garcia MD Primary Care Provider Active Ashleigh Garcia MD Attending Provider Active Team Status: Inactive Member Role Status Dates Dr. Ashleigh Garcia MD Primary Care Provider Active Dr. Jaron Worrell DO Emergency Provider Active Team Status: Active Member Role Status Dates Dr. Ashleigh Garcia MD Primary Care Provider Active Dr. Alfonzo Broderick MD Attending Provider Active Team Status: Active Member Role Status Dates Dr. Ashleigh Garcia MD Primary Care Provider Active Pratik Lima [employer] SAL[employer] BROKER, [employer] BROKER-C Attending Provider Active Team Status: Inactive Member Role Status Dates Dr. Ashleigh Garcia MD Primary Care Provider Active Dr. Alfonzo Broderick MD Attending Provider Active Team Status: Inactive Member Role Status Dates Dr. Ashleigh Garcia MD Primary Care Provider Active Dr. Jaron Worrell DO Attending Provider, Emergency P indu Active Certified Residential Medication Aide Relationship Specialty Start Date End Date Agusto Elliott DO [address] [place] [address] PCP - General 06/05/20 Team Status: Inactive Member Role Status Dates Dr. Ashleigh Garcia MD Primary Care Provi duke, Attending Provider, Referring Provider Active Team Status: Inactive Member Role Status Dates Dr. Ashleigh Garcia MD Primary Care Provider, Referring Provider Active Nhan CROCKER PA Attending Provider Active Team Status: Inactive Member Role Status Dates Dr. Ashleigh Garcia MD Primary Care Provider Active Nhan CROCKER PA Attending Provider, Referring Pr ovider Active Team Status: Inactive Member Role Status Dates Dr. Ashleigh Garcia MD Primary Care Provider Active Dr. Galileo Fisher MD Emergency Provider Active Team Status: Active Member Role Status Dates No Primary Care Physician Family Provider Active No Primary Care Physician Primary Care Provider Active Team Status: Inactive Member Role Status Dates Dr. Ashleigh Garcia MD Primary Care Provider Active Dr. Galileo Fisher MD Attending Provider, Emergency Provi duke Active Team Status: Inactive Member Role Status Dates No Primary Care Physician Primary Care Provider Active Nhan CROCKER PA Attending Provider, Referring Pr ovider Active Certified Residential Medication Aide Relationship Specialty Start Date End Date Moises Malcolm, 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 [address] [place] [id number] PCP - General Internal Medicine 04/16/23 Certified Residential Medication Aide Relationship Specialty Start Date End Date Moises Malcolm, 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 [address] [facility], [place] [id number] PCP - General Internal Medicine 04/16/23 Team Status: Inactive Member Role Status Dates No Primary Care Physician Primary Care Provider, Refer ring Provider Active Agusto CROCKER, PA Attending Provider Active Team Status: Inactive Member Role Status Dates No Primary Care Physician Primary Care Provider, Refer ring Provider Active Nhan CROCKER, PA Attending Provider Active Team Status: Inactive Member Role Status Dates No Primary Care Physician Primary Care Provider Active Dr. Jenelle Luis MD Emergency Provider Active Certified Residential Medication Aide Relationship Specialty Start Date End Date Agusto Elliott DO [address] [place] [address] PCP - General 06/05/20 Certified Residential Medication Aide Relationship Specialty Start Date End Date Moises Malcolm, 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 [address] [facility], [place] [id number] PCP - General Internal Medicine 04/16/23 Certified Residential Medication Aide Relationship Specialty Start Date End Date Moises Malcolm, 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 [address] [facility], [place] [id number] PCP - General Internal Medicine 04/16/23 Certified Residential Medication Aide Relationship Specialty Start Date End Date Moises Malcolm, 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 [address] [facility], [place] [id number] PCP - General Internal Medicine 04/16/23 Certified Residential Medication Aide Relationship Specialty Start Date End Date Moises Malcolm, 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 [address] [facility], [place] [id number] PCP - General Internal Medicine 04/16/23 Certified Residential Medication Aide Relationship Specialty Start Date End Date Moises Malcolm, 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 [address] [place] [address] PCP - General Internal Medicine 04/16/23 Certified Residential Medication Aide Relationship Specialty Start Date End Date Moises Malcolm, 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 [address] [place] [address] PCP - General Internal Medicine 04/16/23 Certified Residential Medication Aide Relationship Specialty Start Date End Date Moises Malcolm, 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 [address] [place] [address] PCP - General Internal Medicine 04/16/23 Certified Residential Medication Aide Relationship Specialty Start Date End Date Moises Malcolm, 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 [address] [place] [address], [place] [address] PCP - General Internal Medicine 04/16/23 Al Barreto, [facility] [address] [place] [address] Specialty Hone Operator Orthopedics 01/11/24 03/11/24 Certified Residential Medication Aide Relationship Specialty Start Date End Date Moises Malcolm, 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 [address] [place] [address], [place] [address] PCP - General Internal Medicine 04/16/23 Al Barreto, [facility] [address] [place] [address] Specialty Hone Operator Orthopedics 01/11/24 03/11/24 Certified Residential Medication Aide Relationship Specialty Start Date End Date Moises Malcolm, 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 [address] [place] [address] PCP - General Internal Medicine 04/16/23 Sissen, Al, [facility] [address] [place] [address] Specialty Hone Operator Orthopedics 01/11/24 03/11/24 Certified Residential Medication Aide Relationship Specialty Start Date End Date Moises Malcolm, 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 [address] [place] [address] PCP - General Internal Medicine 04/16/23 Sissen, Al, [facility] [address] [place] [address] Specialty Hone Operator Orthopedics 01/11/24 03/11/24 Certified Residential Medication Aide Relationship Specialty Start Date End Date Moises Malcolm, 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 [address] [place] [address] PCP - General Internal Medicine 04/16/23 Sissen, Al, [facility] [address] [place] [address] Specialty Hone Operator Orthopedics 01/11/24 03/11/24 Certified Residential Medication Aide Relationship Specialty Start Date End Date Moises Malcolm 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 [address] [place] [address] PCP - General Internal Medicine 04/16/23 Sissen, Al, [facility] [address] [place] [address] Specialty Hone Operator Orthopedics 01/11/24 03/11/24 Certified Residential Medication Aide Relationship Specialty Start Date End Date Moises Malcolm 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 [address] [place] [address] PCP - General Internal Medicine 04/16/23 Sissen, Al, [facility] [address] [place] [address] Specialty Hone Operator Orthopedics 01/11/24 03/11/24 Certified Residential Medication Aide Relationship Specialty Start Date End Date Moises Malcolm 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 [address] [place] [address] PCP - General Internal Medicine 04/16/23 Al Barreto, [facility] [address] [place] [address] Specialty Hone Operator Orthopedics 01/11/24 03/11/24 Marcello Lloyd PA-C [address] [place] [address] Referring Orthopedics 02/03/24 Makayla Bradley MD [address] [place] [address] Home Care Provider Orthopedics 02/03/24 Shannon Chung, PT [address] [place] [address] Manager Motor Post Acute Care 02/03/24 Certified Residential Medication Aide Relationship Specialty Start Date End Date Moises Malcolm, 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 [address] [place] [address] PCP - General Internal Medicine 04/16/23 Al Barreto, [facility] [address] [place] [address] Specialty Hone Operator Orthopedics 01/11/24 03/11/24 Marcello Lloyd PA-C [address] [place] [address] Referring Orthopedics 02/03/24 Makayla Bradley MD [address] [place] [address] Home Care Provider Orthopedics 02/03/24 Shannon Chung, PT [address] [place], [place] [id number] Manager Motor Post Acute Care 02/03/24 Certified Residential Medication Aide Relationship Specialty Start Date End Date Moises Malcolm, 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 [address] [place] [address] PCP - General Internal Medicine 04/16/23 Al Barreto, [facility] [address] [place] [address] Specialty Hone Operator Orthopedics 01/11/24 03/11/24 Marcello Lloyd PA-C [address] [place] [address] Referring Orthopedics 02/03/24 Makayla Bradley MD [address] [place] [address] Home Care Provider Orthopedics 02/03/24 Shannon Chung, PT [address] [place] [address] Manager Motor Post Acute Care 02/03/24 Certified Residential Medication Aide Relationship Specialty Start Date End Date Moises Malcolm, 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 [address] [place] [address] PCP - General Internal Medicine 04/16/23 Al Barreto, [facility] [address] [place] [address] Specialty Hone Operator Orthopedics 01/11/24 03/11/24 Marcello Lloyd PA-C [address] [place] [address] Referring Orthopedics 02/03/24 Makayla Bradley MD [address] [place] [address] Home Care Provider Orthopedics 02/03/24 Shannon Chung, PT [address] [place] [address] Manager Motor Post Acute Care 02/03/24 Certified Residential Medication Aide Relationship Specialty Start Date End Date Moises Malcolm 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 [address] [place] [address] PCP - General Internal Medicine 04/16/23 Al Barreto, [facility] [address] [place] [address] Specialty Hone Operator Orthopedics 01/11/24 03/11/24 Marcello Lloyd PA-C [address] [place] [address] Referring Orthopedics 02/03/24 Makayla Bradley MD [address] [place] [address] Home Care Provider Orthopedics 02/03/24 Shannon Chung, PT [address] [place] [address] Manager Motor Post Acute Care 02/03/24 Certified Residential Medication Aide Relationship Specialty Start Date End Date Moises Malcolm 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 [address] [place] [address] PCP - General Internal Medicine 04/16/23 Al Barreto, [facility] [address] [place] [address] Specialty Hone Operator Orthopedics 01/11/24 03/11/24 Marcello Lloyd PA-C [address] [place] [address] Referring Orthopedics 02/03/24 Makayla Bradley MD [address] [place] [address]703 Home Care Provider Orthopedics 02/03/24 Shannon Chung, PT [address] [place], [place] [phone] Manager Motor Post Acute Care 02/03/24 Certified Residential Medication Aide Relationship Specialty Start Date End Date Moises Malcolm, 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 [address] [place] [address] [id number] PCP - General Internal Medicine 04/16/23 Certified Residential Medication Aide Relationship Specialty Start Date End Date Moises Malcolm, 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 [address] [place] [id number] PCP - General Internal Medicine 04/16/23 Al Barreto [facility] [address] [place] [address] Specialty Hone Operator Orthopedics 01/11/24 03/11/24 Marcello Lloyd PA-C [address] [place] [address] Referring Orthopedics 02/03/24 Makayla Bradley MD [address] [place] [address] 14796 Home Care Provider Orthopedics 02/03/24 Jeffry Koo, PT [address] [place] [address] Manager Motor Post Acute Care 02/05/24 Certified Residential Medication Aide Relationship Specialty Start Date End Date Moises Malcolm, 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 [address] [place] [address] PCP - General Internal Medicine 04/16/23 [facility], [facility] [address] [place] [address] Specialty Hone Operator Orthopedics 01/11/24 03/11/24 Marcello Lloyd PA-C [address] [place] [address] Referring Orthopedics 02/03/24 Makayla Bradley MD [address] [place] [address]3927 Home Care Provider Orthopedics 02/03/24 Jeffry Koo, PT [address] [place] [address] Manager Motor Post Acute Care 02/05/24 Certified Residential Medication Aide Relationship Specialty Start Date End Date Moises Malcolm APRN.HUMAN MACHINE INTERFACE ENGINEER [address] [place] [address] PCP - General Internal Medicine 04/16/23 Al Barreto, [facility] [address] [place] [address] Specialty Hone Operator Orthopedics 01/11/24 03/11/24 Marcello Lloyd PA-C [address] [place] [address] Referring Orthopedics 02/03/24 Makayla Bradley MD [address] [place] [address]285 Home Care Provider Orthopedics 02/03/24 Jeffry Koo, PT [address] [place] [address] Manager Motor Post Acute Care 02/05/24 Certified Residential Medication Aide Relationship Specialty Start Date End Date Moises Malcolm APRN.HUMAN MACHINE INTERFACE ENGINEER [address] [place] [address] PCP - General Internal Medicine 04/16/23 Al Barreto, [facility] [address] [place] [address] Specialty Hone Operator Orthopedics 01/11/24 03/11/24 Marcello Lloyd PA-C [address] [place] [address] Referring Orthopedics 02/03/24 Makayla Bradley MD [address] [place] [address] 6[address]10 Home Care Provider Orthopedics 02/03/24 Jeffry Koo, PT [address] [place] [address] Manager Motor Post Acute Care 02/05/24 Certified Residential Medication Aide Relationship Specialty Start Date End Date Moises Malcolm, 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 [address] [place] [address] PCP - General Internal Medicine 04/16/23 Al Barreto, [facility] [address] [place] [address] Specialty Hone Operator Orthopedics 01/11/24 03/11/24 Marcello Lloyd PA-C [address] [place] [address] Referring Orthopedics 02/03/24 Makayla Bradley MD [address] [place] [address]139 Home Care Provider Orthopedics 02/03/24 Jeffry Koo, PT [address] [place] [address] Manager Motor Post Acute Care 02/05/24 Certified Residential Medication Aide Relationship Specialty Start Date End Date Moises Malcolm, 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 [address] [place] [address] PCP - General Internal Medicine 04/16/23 Al Barreto, [facility] [address] [place] [address] Specialty Hone Operator Orthopedics 01/11/24 03/11/24 Marcello Lloyd PA-C [address] [place] [address] Referring Orthopedics 02/03/24 Makayla Bradley MD [address] [place] [address] 56137 Home Care Provider Orthopedics 02/03/24 Jeffry Koo, PT [address] [place] [phone] Manager Motor Post Acute Care 02/05/24 Certified Residential Medication Aide Relationship Specialty Start Date End Date Moises Malcolm, 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 [address] [place] [address] PCP - General Internal Medicine 04/16/23 Al Barreto, [facility] [address] [place] [address] Specialty Hone Operator Orthopedics 01/11/24 03/11/24 Marcello Lloyd PA-C [address] [place] [address] Referring Orthopedics 02/03/24 Makayla Bradley MD [address] [place] [address] 60065 Home Care Provider Orthopedics 02/03/24 Jeffry Koo, PT [address] [place] [address] Manager Motor Post Acute Care 02/05/24 Certified Residential Medication Aide Relationship Specialty Start Date End Date Moises Malcolm, 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 [address] [place] [address] 52786 PCP - General Internal Medicine 04/16/23 Al Barreto, [facility] [address] [place] [address] Specialty Hone Operator Orthopedics 01/11/24 03/11/24 Marcello Lloyd PA-C [address] [place] [address]19 Referring Orthopedics 02/03/24 Makayla Bradley MD [address] [place] [address] 36251 Home Care Provider Orthopedics 02/03/24 Jeffry Koo, PT [address] [place] [address] Manager Motor Post Acute Care 02/05/24 Certified Residential Medication Aide Relationship Specialty Start Date End Date Moises Malcolm, 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 [address] [place] [address] PCP - General Internal Medicine 04/16/23 Al Barreto, [facility] [address] [place] [address] Specialty Hone Operator Orthopedics 01/11/24 03/11/24 Marcello Lloyd PA-C [address] [place] [address]13 Referring Orthopedics 02/03/24 Makayla Bradley MD [address] [place] [address] 19028 Home Care Provider Orthopedics 02/03/24 Jeffry Koo, PT [address] [place] [phone] Manager Motor Post Acute Care 02/05/24 Certified Residential Medication Aide Relationship Specialty Start Date End Date Moises Malcolm, 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 [address] [place] [address] PCP - General Internal Medicine 04/16/23 Al Barreto, [facility] [address] [place] [address] Specialty Hone Operator Orthopedics 01/11/24 03/11/24 Marcello Lloyd PA-C [address] [place] [address] [phone] Referring Orthopedics 02/03/24 Makayla Bradley MD [address] [place] [address] 46475 Home Care Provider Orthopedics 02/03/24 Jeffry Koo, PT [address] [place] [address] Manager Motor Post Acute Care 02/05/24 Certified Residential Medication Aide Relationship Specialty Start Date End Date Moises Malcolm, 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 [address] [place] [address] 84248 PCP - General Internal Medicine 04/16/23 Al Barreto, [facility] [address] [place] [address] Specialty Hone Operator Orthopedics 01/11/24 03/11/24 Marcello Lloyd PA-C [address] [place] [address] [phone] Referring Orthopedics 02/03/24 Makayla Bradley MD [address] [place] [address] 45603 Home Care Provider Orthopedics 02/03/24 Jeffry Koo, PT [address] [place] [address] Manager Motor Post Acute Care 02/05/24 Certified Residential Medication Aide Relationship Specialty Start Date End Date Moises Malcolm, 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 [address] [place] [address] 25661 PCP - General Internal Medicine 04/16/23 Al Barreto, [facility] [address] [place] [address] Specialty Hone Operator Orthopedics 01/11/24 03/11/24 Marcello Lloyd PA-C [address] [place] [address] [phone] Referring Orthopedics 02/03/24 Makayla Bradley MD [address] [place] [address] 72311 Home Care Provider Orthopedics 02/03/24 Jeffry Koo, PT [address] [place] [address] Manager Motor Post Acute Care 02/05/24 Certified Residential Medication Aide Relationship Specialty Start Date End Date Moises Malcolm, 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 [address] [place] [address] 14724 PCP - General Internal Medicine 04/16/23 Al Barreto, [facility] [address] [place] [address] Specialty Hone Operator Orthopedics 01/11/24 03/11/24 Marcello Lloyd PA-C [address] [place] [address] 10768 Referring Orthopedics 02/03/24 Makayla Bradley MD [address] [place] [address] 07835 Home Care Provider Orthopedics 02/03/24 Certified Residential Medication Aide Relationship Specialty Start Date End Date Moises Malcolm, 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 [address] [place] [address] 60637 PCP - General Internal Medicine 04/16/23 Marcello Lloyd PA-C [address] [place] [address] [phone] Referring Orthopedics 02/03/24 Makayla Bradley MD [address] [place] [address] 52264 Home Care Provider Orthopedics 02/03/24 Certified Residential Medication Aide Relationship Specialty Start Date End Date Moises Malcolm 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 [address] [place] [address] 09333 PCP - General Internal Medicine 04/16/23 Marcello Lloyd PA-C [address] [place] [address] [phone] Referring Orthopedics 02/03/24 Makayla Bradley MD [address] [place] [address] [phone] Home Care Provider Orthopedics 02/03/24 Certified Residential Medication Aide Relationship Specialty Start Date End Date Moises Malcolm, 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 [address] [place] [address] [phone] PCP - General Internal Medicine 04/16/23 Al Barreto, [facility] [address] [place] [address] Specialty Hone Operator Orthopedics 01/11/24 03/11/24 Marcello Lloyd PA-C [address] [place] [address] 47995 Referring Orthopedics 02/03/24 Makayla Bradley MD [address] [place] [address] 52272 Home Care Provider Orthopedics 02/03/24 Jeffry Koo, PT [address] [place] [phone] Manager Motor Post Acute Care 02/05/24 03/03/24 Certified Residential Medication Aide Relationship Specialty Start Date End Date Moises Malcolm, 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 [address] [place] [address] 13542 PCP - General Internal Medicine 04/16/23 Certified Residential Medication Aide Relationship Specialty Start Date End Date Moises Malcolm 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 [address] [place] [address] 92523 PCP - General Internal Medicine 04/16/23 Marcello Lloyd PA-C [address] [place] [address] 67672 Referring Orthopedics 02/03/24 Makayla Bradley MD [address] [place] [address] 24353 Home Care Provider Orthopedics 02/03/24 Certified Residential Medication Aide Relationship Specialty Start Date End Date Moises Malcolm, 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 [address] [place] [address] 25814 PCP - General Internal Medicine 04/16/23 Marcello Lloyd PA-C [address] [place] [address] 51595 Referring Orthopedics 02/03/24 Makayla Bradley MD [address] [place] [address] 80438 Home Care Provider Orthopedics 02/03/24 Certified Residential Medication Aide Relationship Specialty Start Date End Date Moises Malcolm 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 [address] [place] [address] [phone] PCP - General Internal Medicine 04/16/23 Marcello Lloyd PA-C [address] [place] [address] 33027 Referring Orthopedics 02/03/24 Makayla Bradley MD [address] [place] [address] 43235 Home Care Provider Orthopedics 02/03/24 Certified Residential Medication Aide Relationship Specialty Start Date End Date Moises Malcolm 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 [address] [place] [address] 24063 PCP - General Internal Medicine 04/16/23 Marcello Lloyd PA-C [address] [place] [address] 05576 Referring Orthopedics 02/03/24 Makayla Bradley MD [address] [place] [address] 43590 Home Care Provider Orthopedics 02/03/24 Certified Residential Medication Aide Relationship Specialty Start Date End Date Moises Malcolm 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 [address] [place] [address] 89895 PCP - General Internal Medicine 04/16/23 Marcello Lloyd PA-C [address] [place] [address] [phone] Referring Orthopedics 02/03/24 Makayla Bradley MD [address] [place] [address] [phone] Home Care Provider Orthopedics 02/03/24 Certified Residential Medication Aide Relationship Specialty Start Date End Date Moises Malcolm 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 [address] [place] [address] 68693 PCP - General Internal Medicine 04/16/23 Marcello Lloyd PA-C [address] [place] [address] [phone] Referring Orthopedics 02/03/24 Makayla Bradley MD [address] [place] [address] 46489 Home Care Provider Orthopedics 02/03/24 Certified Residential Medication Aide Relationship Specialty Start Date End Date Moises Malcolm 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 [address] [place] [address] 03485 PCP - General Internal Medicine 04/16/23 Marcello Lloyd PA-C [address] [place] [address] [phone] Referring Orthopedics 02/03/24 Makayla Bradley MD [address] [place] [address] 05438 Home Care Provider Orthopedics 02/03/24 Certified Residential Medication Aide Relationship Specialty Start Date End Date Moises Malcolm APRN.[facility] [address] [place] [address] 71002 PCP - General Internal Medicine 04/16/23 Marcello Lloyd PA-C [address] [place] [address] [phone] Referring Orthopedics 02/03/24 Makayla Bradley MD [address] [place] [address] 27210 Home Care Provider Orthopedics 02/03/24 Certified Residential Medication Aide Relationship Specialty Start Date End Date Agusto Elliott, DO [address] [place] [address] PCP - General 06/05/20 Certified Residential Medication Aide Relationship Specialty Start Date End Date EarlAgusto, DO [address] [facility] [place] [address] PCP - General 06/05/20 Certified Residential Medication Aide Relationship Specialty Start Date End Date Agusto Elliott, DO [address] [facility] [place] [address] PCP - General 06/05/20 Certified Residential Medication Aide Relationship Specialty Start Date End Date Agusto Elliott, DO [address] [facility] [place] [address] [place] [address] PCP - General 06/05/20 Certified Residential Medication Aide Relationship Specialty Start Date End Date Agusto Elliott, DO [address] [facility] [address] [facility] [address] PCP - General 06/05/20 Certified Residential Medication Aide Relationship Specialty Start Date End Date Agusto Elliott, DO [address] [facility] [place] [address] PCP - General 06/05/20 Certified Residential Medication Aide Relationship Specialty Start Date End Date Agusto Elliott, DO [address] [facility] [address] [facility] [place] [address] PCP - General 06/05/20 Certified Residential Medication Aide Relationship Specialty Start Date End Date Agusto Ellitot, DO [address] [place] [address] PCP - General 06/05/20 Certified Residential Medication Aide Relationship Specialty Start Date End Date Agusto Elliott, DO [address] [place] [address] PCP - General 06/05/20 Certified Residential Medication Aide Relationship Specialty Start Date End Date Agusto Elliott, DO [address] [place] [address] PCP - General 06/05/20 Certified Residential Medication Aide Relationship Specialty Start Date End Date Moises Malcolm, 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 [address] [place] [address] 71331 PCP - General Internal Medicine 04/16/23 Marcello Lloyd PA-C [address] [place] [address] [phone] Referring Orthopedics 02/03/24 Makayla Bradley MD [address] [place] [address] 96739 Home Care Provider Orthopedics 02/03/24 Certified Residential Medication Aide Relationship Specialty Start Date End Date Moises Malcolm APRN.HUMAN MACHINE INTERFACE ENGINEER [address] [place] [address] 98436 PCP - General Internal Medicine 04/16/23 Marcello Lloyd PA-C [address] [place] [address] [phone] Referring Orthopedics 02/03/24 Makayla Bradley MD [address] [place] [address] 23037 Home Care Provider Orthopedics 02/03/24 Certified Residential Medication Aide Relationship Specialty Start Date End Date Moises Malcolm 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 [address] [place] [address] 75814 PCP - General Internal Medicine 04/16/23 Marcello Lloyd PA-C [address] [place] [address] 85538 Referring Orthopedics 02/03/24 Makayla Bradley MD [address] [place] [address] 48737 Home Care Provider Orthopedics 02/03/24 Certified Residential Medication Aide Relationship Specialty Start Date End Date Moises Malcolm 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 [address] [place] [address] 55174 PCP - General Internal Medicine 04/16/23 Marcello Lloyd PA-C [address] [place] [address] 48712 Referring Orthopedics 02/03/24 Makayla Bradley MD [address] [place] [address] 95270 Home Care Provider Orthopedics 02/03/24 Certified Residential Medication Aide Relationship Specialty Start Date End Date Moises Malcolm 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 [address] [place] [address] 37700 PCP - General Internal Medicine 04/16/23 Marcello Lloyd PA-C [address] [place] [address] 08660 Referring Orthopedics 02/03/24 Makayla Bradley MD [address] [place] [address] 73941 Home Care Provider Orthopedics 02/03/24 Certified Residential Medication Aide Relationship Specialty Start Date End Date Moises Malcolm APRN.HUMAN MACHINE INTERFACE ENGINEER [address] [place] [address] 54296 PCP - General Internal Medicine 04/16/23 Marcello Lloyd PA-C [address] [place] [address] 58659 Referring Orthopedics 02/03/24 Makayla Bradley MD [address] [place] [address] 83905 Home Care Provider Orthopedics 02/03/24 Certified Residential Medication Aide Relationship Specialty Start Date End Date Moises Maloclm 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 [address] [place] [address] 48333 PCP - General Internal Medicine 04/16/23 Marcello Lloyd PA-C [address] [place] [address] 58770 Referring Orthopedics 02/03/24 Makayla Bradley MD [address] [place] [address] 98839 Home Care Provider Orthopedics 02/03/24 Certified Residential Medication Aide Relationship Specialty Start Date End Date Moises Malcolm 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 [address] [place] [address] 97055 PCP - General Internal Medicine 04/16/23 Marcello Lloyd PA-C [address] [place] [address] 54039 Referring Orthopedics 02/03/24 Makayla Bradley MD [address] [place] [address] 54610 Home Care Provider Orthopedics 02/03/24 Certified Residential Medication Aide Relationship Specialty Start Date End Date Moises Malcolm 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 [address] [place] [address] 74409 PCP - General Internal Medicine 04/16/23 Marcello Lloyd PA-C [address] [place] [address] 11020 Referring Orthopedics 02/03/24 Makayla Bradley MD [address] [place] [address] 01769 Home Care Provider Orthopedics 02/03/24 Certified Residential Medication Aide Relationship Specialty Start Date End Date Moises Malcolm 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 [address] [place] [address] PCP - General Internal Medicine 04/16/23 Marcello Lloyd PA-C [address] [place] [address] 51079 Referring Orthopedics 02/03/24 Makayla Bradley MD [address] [place] [address] 71897 Home Care Provider Orthopedics 02/03/24 Certified Residential Medication Aide Relationship Specialty Start Date End Date Moises Malcolm 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 [address] [place] [address] 89200 PCP - General Internal Medicine 04/16/23 Marcello Lloyd PA-C [address] [place] [address] [phone] Referring Orthopedics 02/03/24 Makayla Bradley MD [address] [place] [address] [phone] Home Care Provider Orthopedics 02/03/24 Goals (unrecognized section and content) Goals may be documented in a n alternate section No data available for this section No data available for this sectionGoals may be documented in an alternate sectionGoals may be documented in an alternate sectionGoals may be documented in an alternate sectionGoals may be documented in an alternate sectionGoals may be documented in an alternate sectionGoals may be documented in an alternate sectionGoals may be documented in an alternate sectionGoals may be documented in an alternate sectionGoals may be documented in an alternate sectionGoals may be documented in an alternate sectionGoals may be documented in an alternate sectionGoals may be documented in an alternate section Care Team (unrecognized sect ion and content) Care Team Personnel Name: ÁNGEL GARCIA MD Member Role: Primary Care Physician Address: Address: [facility] [address] [place] [address]- Care Team Related Persons Name: RIGOCHACE LUIS Care Team Personnel Name: ÁNGEL GARCIA MD Member Role: Primary Care Physician Address: Address: [facility] [address] [facility] [address] [place] [address]- Care Team Related Persons Name: LUIS LLAMAS [...] BE BASED ON THE PRIMARY CLINICAL RECORDS. [facility] [employer] provides no warranty or guarantee of the accuracy or completeness of information in this document.
--- NOTE | 2025-01-06 05:45 | RAD_ITS ---
PROCEDURE: SHOULDER MIN 2 VIEWS 01/06/2025 REASON FOR EXAM: PAIN TECHNIQUE: SHOULDER MIN 2 VIEWS COMPARISON: 03/05/2021. FINDINGS: Mild osteopenia. Moderate degenerative joint disease. Calcific tendinosis at the humeral insertion of the rotator cuff tendons. 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 Unremarkable humeral metallic inessa and screw. RAD/Shoulder min 2 Views IMPRESSION: No evidence for acute abnormality. Reading Location: [facility]
[2025-01-06 06:27] VITALS: BP 181/90; PULSE 53; RESP 18; TEMP 36.6; O2SAT 98
== END 2025-01-06 06:30 | disposition home or self-care (01) ==
PROVIDERS: Emergency Provider Surgery; PCP Nurse Practitioner Adult Health; Visit Provider Surgery
DX: S40.011A Contusion of right shoulder, initial encounter (principal); E11.9 Type 2 diabetes mellitus without complications; G89.29 Other chronic pain; G47.33 Obstructive sleep apnea (adult) (pediatric); Z86.711 Personal history of pulmonary embolism; Z86.73 Personal history of transient ischemic attack (TIA), and cerebral infarction without residual deficits; Z86.718 Personal history of other venous thrombosis and embolism; W18.2XXA Fall in (into) shower or empty bathtub, initial encounter
CPT/HCPCS: 73030; 73060; 99282